=== PATIENT | male | born 1945 | race Caucasian/White ===

== ENCOUNTER 2020-02-20 14:22 | Outpatient (REF) | payer MEDICARE, SELFPAY | END 2020-02-20 14:23 | disposition home or self-care (01) | LOC: HO.LNP 14:22 | PROVIDERS: Visit Provider Internal Medicine | DX: Z20.828 Contact with and (suspected) exposure to other viral communicable diseases (principal); R05 Cough; R68.89 Other general symptoms and signs | CPT/HCPCS: U0003 ==

== ENCOUNTER 2020-07-17 16:06 | Outpatient (REF) | payer MEDICARE, SELFPAY ==
[2020-07-17 18:17] LABS: MANUAL DIFF FLAG NO
[2020-07-17 18:22] LABS: Basophils Percent Auto 0.6 % (0-2); Eosinophils Absolute Auto 0.1 X10*3/uL (0.0-0.4); Eosinophils Percent Auto 1.5 % (0-4); Hemoglobin 10.4 g/dl (14.0-18.0); Imm Gran Abs Auto 0.02 X10*3/uL (0.00-0.03); Imm Gran Pct Auto 0.4 % (0.0-0.4); Lymphocytes Absolute Auto 1.6 X10*3/uL (1.2-4.9); Lymphocytes Percent Auto 29.2 % (20-40); Mean Corpuscular HGB Conc 32.5 g/dl (31.0-36.0); Mean Corpuscular Volume 98.5 fL (80-98); Mean Platelet Volume 11.2 fL (9.4-12.4); Monocytes Absolute Auto 0.5 X10*3/uL (0.1-1.2); Monocytes Percent Auto 8.7 % (2-11); Neutrophils Absolute Auto 3.2 X10*3/uL (2.0-8.3); Neutrophils Percent Auto 59.6 % (45-73); Platelet Count 217 X10*3/uL (160-400); Red Blood Count 3.25 X10*6/uL (4.60-5.80); Red Cell Distribution Width 13.6 % (11.0-16.0); White Blood Count 5.4 X10*3/uL (4.8-10.8)
[2020-07-17 18:44] LABS: Alanine Aminotransferase 31 U/L (0-40); Albumin Level 3.9 g/dL (3.5-5.0); Alkaline Phosphatase 136 U/L (39-117); Anion Gap 12 (12-20); Aspartate Amino Transferase 31 U/L (5-37); Bilirubin Total 0.3 mg/dL (0.0-1.0); Blood Urea Nitrogen 24 mg/dL (9-16); Carbon Dioxide 22 mmol/L (22-29); Chloride 108 mmol/L (96-108); Estimated Glomerular Filt Rate 52; Glucose Random 88 mg/dL (60-115); Potassium 4.1 mmol/L (3.3-5.1); Sodium 138 mmol/L (135-145); Total Protein 8.1 g/dL (6.5-8.0)
== END 2020-07-17 16:07 | disposition home or self-care (01) ==
LOC: HO.LAB 16:06
PROVIDERS: PCP Internal Medicine; Visit Provider Internal Medicine
DX: I25.10 Atherosclerotic heart disease of native coronary artery without angina pectoris (principal); K44.9 Diaphragmatic hernia without obstruction or gangrene; I12.9 Hypertensive chronic kidney disease with stage 1 through stage 4 chronic kidney disease, or unspecified chronic kidney disease; N18.9 Chronic kidney disease, unspecified
CPT/HCPCS: 36415; 80053; 85025

== ENCOUNTER 2020-08-11 20:30 | Emergency (ER) | payer OTHER, MEDICARE, SELFPAY ==
--- NOTE | ~2020-08-11 | CT_ITS ---
EXAMINATION: CT ABDOMEN AND PELVIS WITHOUT CONTRAST CLINICAL INFORMATION: Left flank pain with history of stone COMPARISON: 11/25/2019 TECHNIQUE: Multidetector volumetric imaging was performed from the superior aspect of the liver through the pubic symphysis. Sagittal and coronal reformatted images were obtained on the technologist's workstation. This CT examination was performed using dose optimization techniques as appropriate, variously including the following: *Automated exposure control *Adjustment of mA and/or kV according to patient size (this includes techniques or standardized protocols for targeted exams where dose is matched to indication/reason for exam; i.e. extremities or head) *Use of iterative reconstruction technique DLP: 433 mGy-cm FINDINGS: LUNG BASES: Prominent cystic changes are seen at the lung bases. This is suggestive of emphysema. Comment coronary artery calcifications. Small hiatal hernia. LIVER, GALLBLADDER, AND BILIARY TREE: The liver is normal in size, shape, and attenuation. No focal hepatic lesion or biliary ductal dilatation is present. Small stones layering the gallbladder lumen. No gallbladder wall thickening or pericholecystic fluid. PANCREAS: Unremarkable. SPLEEN: Unremarkable. ADRENAL GLANDS: The left adrenal gland is unremarkable. There is a 2 cm right adrenal gland nodule. This measures 7 Hounsfield units, consistent with a lipid rich adenoma. No follow-up imaging recommended. KIDNEYS AND URETERS: The kidneys are normal in size, shape, and attenuation. Mild left hydroureteronephrosis. There is a 0.2 cm calculus in the distal ureter approximately 1.5 cm proximal to the ureterovesicular junction. There are multiple nonobstructing bilateral renal calculi. On the left there are 2 calculi present. 0.5 cm upper pole calculus is 8 cm from the posterior axillary line. This measures 285 Hounsfield units. There is also a left lower pole 0.4 cm calculus. On the right at least 6 calculi are seen. The largest is seen at the mid to lower pole measuring 0.7 x 0.4 cm, 7 cm from the posterior axillary line. There is bilateral perinephric stranding, though somewhat greater on the left than the right. BLADDER: Unremarkable. GASTROINTESTINAL TRACT: Small hiatal hernia. The stomach is otherwise unremarkable. Normal caliber small bowel. No obstruction. Normal appendix. There is diffuse diverticulosis of the colon, greatest at the sigmoid. No colonic wall thickening or acute inflammation. No free air. No free fluid. ABDOMINAL WALL: No significant hernia is appreciated. LYMPH NODES: Normal. VASCULAR: Normal caliber aorta with extensive atherosclerotic calcifications. There is an intraluminal calcification of the infrarenal abdominal aorta resulting in luminal narrowing as seen on series 3 image 41. PELVIC VISCERA: The uterus and adnexa are unremarkable. OSSEOUS STRUCTURES: No acute or suspicious osseous abnormality. CT/CT abdomen pelvis wo con IMPRESSION: Mild left hydroureteronephrosis with a 0.2 cm distal ureteral obstructing calculus. Multiple additional nonobstructing bilateral renal calculi. Cholelithiasis. Colonic diverticulosis without diverticulitis.
[2020-08-11 21:32] VITALS: BP 160/67; PULSE 80; RESP 16; TEMP 36.5; O2SAT 98; BMI 22.7
--- NOTE | 2020-08-11 21:51 | ED_ITS ---
HPI - Male Genitourinary General Chief complaint: Urogenital-Male Stated complaint: abd pain Time Seen by Provider: 08/11/20 21:01 Source: patient Mode of arrival: ambulatory Limitations: no limitations History of Present Illness HPI Narrative: Patient's history of kidney stone complaining of pain left flank area for last 3 hours Related Data Previous Rx's Medication Instructions Recorded atorvastatin 80 mg tablet 80 mg PO BEDTIME 90 Days #90 tab 05/04/20 metoprolol succinate 100 mg 100 mg PO DAILY #90 tab 07/15/20 tablet,extended release 24 hr hydralazine 50 mg tablet 50 mg PO BID 90 Days #180 tab 07/20/20 amlodipine 10 mg tablet 10 mg PO DAILY #90 tab 07/30/20 Allergies Allergy/AdvReac Type Severity Reaction Status Date / Time No Known Allergies Allergy Verified 08/11/20 21:31 [No Known Allergies*] [facility] Past Medical History Medical History (Updated 08/11/20 @ 21:34 by Nicky Puga) High cholesterol HTN (hypertension) Kidney stone Surgical History (Updated 08/11/20 @ 21:34 by Nicky Puga) Hx of CABG Physical Exam Vital Signs: Vital Signs: Last Vital Signs Temp 97.7 F 08/11/20 21:32 Pulse 80 08/11/20 21:32 Resp 16 08/11/20 21:32 BP 160/67 H 08/11/20 21:32 Pulse Ox 98 08/11/20 21:32 Body Mass Index 22.7 MDM - Male Genitourinary Lab Data Result diagrams: 08/11/20 21:44 08/11/20 21:44 Labs: Lab Results 08/11/20 Range/Units 21:45 Hold Blue Top SEE NOTE Discharge Plan Discharge Prescriptions: No Action atorvastatin 80 mg tablet 80 mg PO BEDTIME 90 Days Qty: 90 RF: 1 metoprolol succinate 100 mg tablet extended release 24 hr 100 mg PO DAILY Qty: 90 RF: 3 hydralazine 50 mg tablet 50 mg PO BID 90 Days Qty: 180 RF: 1 amlodipine 10 mg tablet 10 mg PO DAILY Qty: 90 RF: 3
[2020-08-11 21:54] LABS: Basophils Percent Auto 0.2 % (0-2); Eosinophils Percent Auto 0.4 % (0-4); Hematocrit 30.6 % (42-52); Hemoglobin 10.3 g/dl (14.0-18.0); Imm Gran Abs Auto 0.03 X10*3/uL (0.00-0.03); Imm Gran Pct Auto 0.3 % (0.0-0.4); Lymphocytes Absolute Auto 0.9 X10*3/uL (1.2-4.9); Lymphocytes Percent Auto 10.5 % (20-40); MANUAL DIFF FLAG SCAN; Mean Corpuscular HGB Conc 33.7 g/dl (31.0-36.0); Mean Corpuscular Hemoglobin 32.4 pg (27.0-33.0); Mean Corpuscular Volume 96.2 fL (80-98); Mean Platelet Volume 10.5 fL (9.4-12.4); Monocytes Absolute Auto 0.4 X10*3/uL (0.1-1.2); Monocytes Percent Auto 3.9 % (2-11); Neutrophils Absolute Auto 7.5 X10*3/uL (2.0-8.3); Neutrophils Percent Auto 84.7 % (45-73); PLT CLUMP 1; Red Blood Count 3.18 X10*6/uL (4.60-5.80); Red Cell Distribution Width 13.1 % (11.0-16.0); SCAN SMEAR FLAG 1
[2020-08-11 21:55] LABS: Platelet Count 186 X10*3/uL (160-400); White Blood Count 8.9 X10*3/uL (4.8-10.8)
[2020-08-11 21:56] LABS: SLIDE REVIEW VERIFIED
[2020-08-11 22:13] LABS: Alanine Aminotransferase 25 U/L (0-40); Alkaline Phosphatase 126 U/L (39-117); Anion Gap 13 (12-20); Aspartate Amino Transferase 29 U/L (5-37); Bilirubin Total 0.4 mg/dL (0.0-1.0); Blood Urea Nitrogen 21 mg/dL (9-16); Carbon Dioxide 18 mmol/L (22-29); Chloride 109 mmol/L (96-108); Estimated Glomerular Filt Rate 49; Glucose Random 150 mg/dL (60-115); Potassium 3.9 mmol/L (3.3-5.1); Sodium 136 mmol/L (135-145); Total Protein 8.1 g/dL (6.5-8.0)
[2020-08-11 22:25] LABS: Glucose Urine UA NEG (NEG); Leukocyte Esterase Urine NEG (NEG); Nitrite Urine NEG (NEG); Specific Gravity - Urine 1.025 (1.005-1.025); Urine Blood NEG (NEG); Urine Ketones NEG (NEG); Urine Protein 1+ MG/DL (NEG-TRACE)
[2020-08-11 22:28] LABS: Appearance Urine CLEAR; Color Urine YELLOW
[2020-08-11 22:39] LABS: Bacteria Urine TRACE /LPF; RBC Urine 0-2 /HPF (0); Squamous Epithelial Cell Urine TRACE /LPF; WBC Urine 0-2 /HPF (0-4)
--- NOTE | 2020-08-11 23:24 | ED_ITS ---
HPI - Male Genitourinary General Chief complaint: Urogenital-Male Stated complaint: abd pain Time Seen by Provider: 08/11/20 21:01 Source: patient Mode of arrival: ambulatory Limitations: no limitations History of Present Illness HPI Narrative: Patient history of kidney stone status post lithotripsy in the past comes here for acute onset of left flank radiating to left lower quadrant and testicle sharp pain for last 4 hours. Feel nauseated vomited 1 time at home. No fever no chills no gross hematuria no dysuria or frequency Related Data Previous Rx's Medication Instructions Recorded atorvastatin 80 mg tablet 80 mg PO BEDTIME 90 Days #90 tab 05/04/20 metoprolol succinate 100 mg 100 mg PO DAILY #90 tab 07/15/20 tablet,extended release 24 hr hydralazine 50 mg tablet 50 mg PO BID 90 Days #180 tab 07/20/20 amlodipine 10 mg tablet 10 mg PO DAILY #90 tab 07/30/20 oxycodone 5 mg PO Q6H PRN #20 tab 08/12/20 tamsulosin [Flomax] 0.4 mg PO BEDTIME #10 cap 08/12/20 Allergies Allergy/AdvReac Type Severity Reaction Status Date / Time No Known Allergies Allergy Verified 08/11/20 21:31 [No Known Allergies*] Review of Systems Review of Systems: Constitutional : No Weight loss, No Fever, No Chills ENT/Mouth : No sore throat, No Rhinorrhea Eyes: No Eye Pain, No Swelling Cardiovascular : No Chest Pain, no palpitations Respiratory : No Cough, No Sputum, no shortness of breath Gastrointestinal : +Nausea, + Vomiting, No Diarrhea, + abdominal Pain, no black stools Genitourinary : No Dysuria, No Urinary Frequency Musculoskeletal : No joint pain, No Myalgias, No Joint Swelling Skin : No Skin Lesions, No rash Neuro : No Weakness, No Numbness, No Dizziness, No Headache Psych : No Anxiety/Panic, No Depression Heme/Lymph: No Bruising, No Lymphadenopathy Endocrine : No Polyuria, No Polydipsia All other systems reviewed and are negative PMFSH Past Medical History Medical History High cholesterol HTN (hypertension) Kidney stone Surgical History Hx of CABG Social History Social History Advance Directives: No Advance Directives Information Provided: Yes Physical Exam Vital Signs: Vital Signs: Last Vital Signs Temp 97.7 F 08/11/20 21:32 Pulse 80 08/11/20 21:32 Resp 16 08/11/20 21:32 BP 160/67 H 08/11/20 21:32 Pulse Ox 98 08/11/20 21:32 Body Mass Index 22.7 Appearance: Alert. Oriented X3. In moderate distress. Eyes: PERRLA, No Nystagmus ENT: Pharynx normal. Oral Mucosa moist Neck: Normal inspection. Neck supple. CVS: Normal heart rate and rhythm. Pulses normal. Respiratory: No respiratory distress. Equal air entry bilateral, no wheezing/rales/rhonchi Abdomen: Soft and nontender. Bowel sounds are present, no mass palpable, left CVA tenderness Skin: Skin warm and dry. Normal skin color. Normal skin turgor. Extremities: No lower extremity edema. No calf tenderness Neuro: Oriented X 3. No motor deficit. No sensory deficit.No cerebellar signs , cranial nerves II-XII intact MDM - Male Genitourinary MDM Narrative Medical decision making narrative: Patient with small 2 mm left distal ureteral stone feeling much better after pain medication will discharge patient home on pain medication and Flomax advised to follow with urologist Lab Data Attestation: I reviewed the patient's lab results. Result diagrams: 08/11/20 21:44 08/11/20 21:44 Labs: Lab Results 08/11/20 08/11/20 08/11/20 Range/Units 21:44 21:44 21:45 WBC 8.9 (4.8-10.8) X10*3/uL RBC 3.18 L (4.60-5.80) X10*6/uL Hgb 10.3 L (14.0-18.0) g/dl Hct 30.6 L (42-52) % MCV 96.2 (80-98) fL MCH 32.4 (27.0-33.0) pg MCHC 33.7 (31.0-36.0) g/dl RDW 13.1 (11.0-16.0) % Plt Count 186 (160-400) X10*3/uL MPV 10.5 (9.4-12.4) fL Immature Gran % (Auto) 0.3 (0.0-0.4) % Neut % (Auto) 84.7 H (45-73) % Lymph % (Auto) 10.5 L (20-40) % [place] % (Auto) 3.9 (2-11) % Eos % (Auto) 0.4 (0-4) % Baso % (Auto) 0.2 (0-2) % Lymph # (Auto) 0.9 L (1.2-4.9) X10*3/uL [place] # (Auto) 0.4 (0.1-1.2) X10*3/uL Eos # (Auto) 0.0 (0.0-0.4) X10*3/uL Baso # (Auto) 0.0 (0.0-0.2) X10*3/uL Abs Immat Gran (auto) 0.03 (0.00-0.03) X10*3/uL Absolute Neuts (auto) 7.5 (2.0-8.3) X10*3/uL Absolute Nucleated RBC 0.000 (0.0-0.012) X10*3/uL Nucleated RBC % (auto) 0.0 (0.0-0.2) /100WBC Smear Tech's Comments VERIFIED Hold Blue Top SEE NOTE Sodium 136 (135-145) mmol/L Potassium 3.9 (3.3-5.1) mmol/L Chloride 109 H (96-108) mmol/L Carbon Dioxide 18 L (22-29) mmol/L Anion Gap 13 (12-20) BUN 21 H (9-16) mg/dL Creatinine 1.40 (0.5-1.4) mg/dL Estim Creat Clear Calc 45.0 Estimated GFR 49 Random Glucose 150 H D (60-115) mg/dL Calcium 9.0 (8.4-10.2) mg/dL Total Bilirubin 0.4 (0.0-1.0) mg/dL AST 29 (5-37) U/L ALT 25 (0-40) U/L Alkaline Phosphatase 126 H (39-117) U/L Total Protein 8.1 H (6.5-8.0) g/dL Albumin 4.0 (3.5-5.0) g/dL Urine Color Urine Appearance Urine pH (5.0-8.0) Ur Specific [place] (1.005-1.025) Urine Protein (NEG-TRACE) MG/DL Urine Glucose (UA) (NEG) MG/DL Urine Ketones (NEG) MG/DL Urine Blood (NEG) Urine Nitrite (NEG) Ur Leukocyte Esterase (NEG) Urine RBC (0) /HPF Urine WBC (0-4) /HPF Ur Squamous Epith Cells /LPF Urine Bacteria /LPF 08/11/20 Range/Units 22:05 WBC (4.8-10.8) X10*3/uL RBC (4.60-5.80) X10*6/uL Hgb (14.0-18.0) g/dl Hct (42-52) % MCV (80-98) fL MCH (27.0-33.0) pg MCHC (31.0-36.0) g/dl RDW (11.0-16.0) % Plt Count (160-400) X10*3/uL MPV (9.4-12.4) fL Immature Gran % (Auto) (0.0-0.4) % Neut % (Auto) (45-73) % Lymph % (Auto) (20-40) % [place] % (Auto) (2-11) % Eos % (Auto) (0-4) % Baso % (Auto) (0-2) % Lymph # (Auto) (1.2-4.9) X10*3/uL [place] # (Auto) (0.1-1.2) X10*3/uL Eos # (Auto) (0.0-0.4) X10*3/uL Baso # (Auto) (0.0-0.2) X10*3/uL Abs Immat Gran (auto) (0.00-0.03) X10*3/uL Absolute Neuts (auto) (2.0-8.3) X10*3/uL Absolute Nucleated RBC (0.0-0.012) X10*3/uL Nucleated RBC % (auto) (0.0-0.2) /100WBC Smear Tech's Comments Hold Blue Top Sodium (135-145) mmol/L Potassium (3.3-5.1) mmol/L Chloride (96-108) mmol/L Carbon Dioxide (22-29) mmol/L Anion Gap (12-20) BUN (9-16) mg/dL Creatinine (0.5-1.4) mg/dL Estim Creat Clear Calc Estimated GFR Random Glucose (60-115) mg/dL Calcium (8.4-10.2) mg/dL Total Bilirubin (0.0-1.0) mg/dL AST (5-37) U/L ALT (0-40) U/L Alkaline Phosphatase (39-117) U/L Total Protein (6.5-8.0) g/dL Albumin (3.5-5.0) g/dL Urine Color YELLOW Urine Appearance CLEAR Urine pH 6.0 (5.0-8.0) Ur Specific [place] 1.025 (1.005-1.025) Urine Protein 1+ H (NEG-TRACE) MG/DL Urine Glucose (UA) NEG (NEG) MG/DL Urine Ketones NEG (NEG) MG/DL Urine Blood NEG (NEG) Urine Nitrite NEG (NEG) Ur Leukocyte Esterase NEG (NEG) Urine RBC 0-2 (0) /HPF Urine WBC 0-2 (0-4) /HPF Ur Squamous Epith Cells TRACE /LPF Urine Bacteria TRACE /LPF Discharge Plan Discharge Clinical Impression: Kidney stone on left side Patient Disposition: Home, Self-Care Instructions: Kidney Stones (ED) Additional Instructions: Drink plenty of fluid take pain medication as advised follow-up with urologist Prescriptions: New oxycodone 5 mg tablet 5 mg PO Q6H PRN (Reason: pain) Qty: 20 RF: 0 tamsulosin [Flomax] 0.4 mg capsule 0.4 mg PO BEDTIME Qty: 10 RF: 0 No Action atorvastatin 80 mg tablet 80 mg PO BEDTIME 90 Days Qty: 90 RF: 1 metoprolol succinate 100 mg tablet extended release 24 hr 100 mg PO DAILY Qty: 90 RF: 3 hydralazine 50 mg tablet 50 mg PO BID 90 Days Qty: 180 RF: 1 amlodipine 10 mg tablet 10 mg PO DAILY Qty: 90 RF: 3
[2020-08-11] MEDS: Morphine Sulfate 4 MG/ML CARTRIDGE IVPUSH (23:45)
[2020-08-11] MEDS: ondansetron HCL 4 MG/2 ML VIAL IVPUSH (23:45)
[2020-08-11] MEDS: 0.9 % Sodium Chloride 1,000 ML 999 ML IVCONT (23:46)
[2020-08-11] MEDS: Ketorolac Tromethamine 30 MG/ML VIAL IVPUSH (23:46)
--- NOTE | 2020-08-11 23:53 | PC.NURSE ---
iv placed to LAC, NS UP AND RUNNING W/O SITE INTACT. PT RATING PAIN 8/10. PT MEDICATED FOR PAIN PER EMAR.
[2020-08-12] MEDS: Morphine Sulfate 4 MG/ML CARTRIDGE IVPUSH (00:45)
[2020-08-12] MEDS: Tamsulosin HCL 0.4 MG CAPSULE PO (00:45)
== END 2020-08-12 01:29 | disposition home or self-care (01) ==
PROVIDERS: Emergency Provider Internal Medicine; PCP Internal Medicine
DX: N13.2 Hydronephrosis with renal and ureteral calculous obstruction (principal); Z87.442 Personal history of urinary calculi; R93.5 Abnormal findings on diagnostic imaging of other abdominal regions, including retroperitoneum; K80.20 Calculus of gallbladder without cholecystitis without obstruction; K57.30 Diverticulosis of large intestine without perforation or abscess without bleeding; I10 Essential (primary) hypertension; E78.5 Hyperlipidemia, unspecified
CPT/HCPCS: 36415; 74176; 80053; 81001; 85025; 96361; 96374; 96375; 96376; 99284; J1885; J2270; J2405

== ENCOUNTER 2020-08-31 08:02 | Outpatient (REF) | payer MEDICARE, SELFPAY ==
--- NOTE | ~2020-08-31 | US_ITS ---
EXAMINATION: US EXTRACRANIAL CAROTID DUPLEX, BILATERAL CLINICAL INFORMATION: History of carotid artery stenosis and right carotid endarterectomy in December 2018. COMPARISON: March 05, 2019, April 18, 2018 TECHNIQUE: Real-time ultrasound and Doppler techniques (integrating B-mode 2-D vascular images, Doppler spectral analysis and color-flow Doppler imaging) were utilized to interrogate the extracranial carotid arteries, the vertebral arteries and proximal subclavian arteries bilaterally. The degree of stenosis is determined by criteria similar to NASCET. FINDINGS: Right Side: 1. There is mild atherosclerotic plaque seen in the bifurcation/proximal ICA region. 2. The common carotid artery PSV proximally is 55 cm/s and distally 89 cm/s. 3. The proximal internal carotid artery velocities are 94 cm/s systolic and 16 cm/s diastolic. 4. The proximal external carotid artery PSV is 90 cm/s. 5. The vertebral artery shows antegrade flow. 6. The subclavian artery waveforms are normal. Left Side: 1. There is moderate atherosclerotic plaque seen in the bifurcation/proximal ICA region. 2. The common carotid artery PSV proximally is 66 cm/s and distally 92 cm/s. 3. The proximal internal carotid artery velocities are 149 cm/s systolic and 26 cm/s diastolic. 4. The proximal external carotid artery PSV is 206 cm/s. 5. The vertebral artery shows antegrade flow. 6. The subclavian artery waveforms are normal. US/US carotid duplex BI IMPRESSION: 1. RIGHT: Minimal, non-hemodynamically significant stenosis of the proximal right internal carotid artery corresponding to a 0-49% stenosis by velocity criteria. 2. LEFT: Moderate, hemodynamically significant stenosis of the proximal left internal carotid artery corresponding to a 50-79% stenosis by velocity criteria. 3. There is no change in the category severity of disease when compared to the previous study dated March 05, 2019. 4. Elevated velocity within the left external carotid artery consistent with moderate, hemodynamically significant stenosis. This is new from the 2019 comparison.
== END 2020-08-31 08:03 | disposition home or self-care (01) ==
LOC: HO.HMGCX 08:02
PROVIDERS: Visit Provider Surgery Vascular Surgery
DX: I65.23 Occlusion and stenosis of bilateral carotid arteries (principal)
CPT/HCPCS: 93880

== ENCOUNTER 2020-09-17 08:50 | Outpatient (REF) | payer MEDICARE, SELFPAY ==
[2020-09-17 13:00] LABS: MANUAL DIFF FLAG NO
[2020-09-17 13:07] LABS: Basophils Percent Auto 0.4 % (0-2); Eosinophils Absolute Auto 0.1 X10*3/uL (0.0-0.4); Eosinophils Percent Auto 1.8 % (0-4); Hematocrit 32.6 % (42-52); Hemoglobin 10.5 g/dl (14.0-18.0); Imm Gran Abs Auto 0.01 X10*3/uL (0.00-0.03); Imm Gran Pct Auto 0.2 % (0.0-0.4); Lymphocytes Absolute Auto 1.3 X10*3/uL (1.2-4.9); Lymphocytes Percent Auto 29.1 % (20-40); Mean Corpuscular HGB Conc 32.2 g/dl (31.0-36.0); Mean Corpuscular Hemoglobin 31.8 pg (27.0-33.0); Mean Corpuscular Volume 98.8 fL (80-98); Mean Platelet Volume 10.4 fL (9.4-12.4); Monocytes Absolute Auto 0.3 X10*3/uL (0.1-1.2); Monocytes Percent Auto 7.5 % (2-11); Neutrophils Absolute Auto 2.8 X10*3/uL (2.0-8.3); Platelet Count 175 X10*3/uL (160-400); Red Cell Distribution Width 13.2 % (11.0-16.0); White Blood Count 4.5 X10*3/uL (4.8-10.8)
[2020-09-17 13:47] LABS: Alanine Aminotransferase 20 U/L (0-40); Albumin Level 4.1 g/dL (3.5-5.0); Alkaline Phosphatase 127 U/L (39-117); Anion Gap 15 (12-20); Aspartate Amino Transferase 27 U/L (5-37); Bilirubin Total 0.4 mg/dL (0.0-1.0); Blood Urea Nitrogen 30 mg/dL (9-16); C Reactive Protein 0.87 mg/dL (< or = 0.50); Calcium 9.4 mg/dL (8.4-10.2); Carbon Dioxide 19 mmol/L (22-29); Chloride 110 mmol/L (96-108); Estimated Glomerular Filt Rate 42; Glucose Random 93 mg/dL (60-115); Lactate Dehydrogenase 172 U/L (118-273); Potassium 4.6 mmol/L (3.3-5.1); Sodium 139 mmol/L (135-145); Total Protein 8.2 g/dL (6.5-8.0)
== END 2020-09-17 08:51 | disposition home or self-care (01) ==
LOC: HO.LAB 08:50
PROVIDERS: PCP Internal Medicine; Visit Provider Surgery Vascular Surgery
DX: R21 Rash and other nonspecific skin eruption (principal); I10 Essential (primary) hypertension; I25.10 Atherosclerotic heart disease of native coronary artery without angina pectoris; I65.23 Occlusion and stenosis of bilateral carotid arteries
CPT/HCPCS: 36415; 80053; 83615; 85025; 86140; 99212

== ENCOUNTER 2020-09-27 02:58 | Inpatient (IN) | payer OTHER, MEDICARE, SELFPAY ==
[2020-09-27] VITALS (11 sets, daily range): BP systolic 103–164; BP diastolic 53–72; PULSE 54–83; RESP 14–20; TEMP 36.4–37.1; O2SAT 88–99; BMI 22.4; BMI 22.9
--- NOTE | ~2020-09-27 | FL_ITS ---
EXAMINATION: XR FLUOROSCOPY WITH IMAGES CLINICAL INFORMATION: Left retrograde COMPARISON: Previous CT of the abdomen and pelvis from yesterday TECHNIQUE: Fluoroscopy performed by Dr. Alan Mcintosh. Fluoroscopy time: 42 seconds Dose: 8 mgy Images: 2 FINDINGS: Fluoroscopy guidance was provided for left retrograde exam and stent placement. Initial image demonstrates a catheter and wire in the bladder and left distal ureter. Final image demonstrates proximal and internal ureteral stent projecting over the left kidney. FL/FL guidance in OR IMPRESSION: Fluoroscopy guidance for left internal ureteral stent placement.
--- NOTE | ~2020-09-27 | CT_ITS ---
EXAMINATION: CT ABDOMEN AND PELVIS WITHOUT CONTRAST CLINICAL INFORMATION: Flank pain COMPARISON: 08/11/2020 TECHNIQUE: Multidetector volumetric imaging was performed from the superior aspect of the liver through the pubic symphysis. Sagittal and coronal reformatted images were obtained on the technologist's workstation. This CT examination was performed using dose optimization techniques as appropriate, variously including the following: *Automated exposure control *Adjustment of mA and/or kV according to patient size (this includes techniques or standardized protocols for targeted exams where dose is matched to indication/reason for exam; i.e. extremities or head) *Use of iterative reconstruction technique DLP: 409 mGy-cm FINDINGS: LUNG BASES: Moderate centrilobular and paraseptal emphysema. Triple vessel coronary calcifications. LIVER, GALLBLADDER, AND BILIARY TREE: The liver is normal in size, shape, and attenuation. No focal hepatic lesion or biliary ductal dilatation is present. Gallbladder unremarkable. PANCREAS: Unremarkable. SPLEEN: Unremarkable. ADRENAL GLANDS: Unremarkable. KIDNEYS AND URETERS: There is a 4 mm stone within the distal LEFT ureter, 1 cm proximal to the ureterovesical junction associated mild upstream hydroureteronephrosis and perinephric stranding. This stone previously resided in the upper pole of the left kidney (coronal image 51 from the previous study). The previously seen 2 mm stone within the distal left ureter has passed the interim. c multiple bilateral nonobstructive intrarenal calculi redemonstrated. BLADDER: Unremarkable. GASTROINTESTINAL TRACT: Scattered colonic diverticula, most extensively involving the sigmoid colon. No evidence of diverticulitis. Normal appendix. Small hiatal hernia. Small bowel unremarkable. ABDOMINAL WALL: Small bilateral inguinal hernias containing nonobstructed loops of small bowel. Appearance similar to prior. LYMPH NODES: Normal. VASCULAR: Extensive calcific atherosclerotic vascular disease present with bulky calcific atheroma formation within the mid abdominal aorta PELVIC VISCERA: Mild prostatomegaly. TURP defect suspected. OSSEOUS STRUCTURES: No acute or suspicious osseous abnormalities. CT/CT abdomen pelvis wo con IMPRESSION: * There is a 4 mm stone within the distal LEFT ureter, 1 cm proximal to the ureterovesical junction associated mild upstream hydroureteronephrosis and perinephric stranding. This stone previously resided within the upper pole of left kidney. * Previously seen 2 mm distal LEFT ureteral stent has passed in the room. * Bilateral nonobstructive intrarenal calculi. * Additional chronic findings as described.
[2020-09-27] MEDS: ondansetron HCL 4 MG/2 ML VIAL IVPUSH (03:38)
[2020-09-27 03:39] LABS: MANUAL DIFF FLAG NO
[2020-09-27] MEDS: 0.9 % Sodium Chloride 1,000 ML 999 ML IV (03:39)
[2020-09-27 03:40] LABS: Basophils Percent Auto 0.1 % (0-2); Eosinophils Absolute Auto 0.3 X10*3/uL (0.0-0.4); Eosinophils Percent Auto 2.3 % (0-4); Hematocrit 32.2 % (42-52); Imm Gran Abs Auto 0.05 X10*3/uL (0.00-0.03); Imm Gran Pct Auto 0.4 % (0.0-0.4); Lymphocytes Absolute Auto 1.5 X10*3/uL (1.2-4.9); Lymphocytes Percent Auto 13.4 % (20-40); Mean Corpuscular HGB Conc 34.2 g/dl (31.0-36.0); Mean Corpuscular Hemoglobin 33.3 pg (27.0-33.0); Mean Corpuscular Volume 97.6 fL (80-98); Mean Platelet Volume 9.8 fL (9.4-12.4); Monocytes Percent Auto 9.3 % (2-11); Neutrophils Absolute Auto 8.3 X10*3/uL (2.0-8.3); Neutrophils Percent Auto 74.5 % (45-73); Platelet Count 243 X10*3/uL (160-400); Red Cell Distribution Width 13.5 % (11.0-16.0); White Blood Count 11.1 X10*3/uL (4.8-10.8)
--- NOTE | 2020-09-27 03:41 | PC.NURSE ---
Pt found ambulating from the waiting room into room 17. Pt is CAOx4, speaking full sentences, reports a history of kidney stones. Pt explains that he woke up @ 2300 with severe left flank pain, nausea and dysuria. Pt states the pain feels the exact same as his prior kidney stones. IV established, labs and UA obtained. Pt medicated for nausea, IVF infusing. Awaiting primary MD kerns.
[2020-09-27 03:42] LABS: Glucose Urine UA NEG (NEG); Leukocyte Esterase Urine NEG (NEG); Nitrite Urine NEG (NEG); PH 5.5 (5.0-8.0); Urine Blood NEG (NEG); Urine Ketones NEG (NEG); Urine Protein NEG (NEG-TRACE)
[2020-09-27 03:51] LABS: Appearance Urine CLEAR; Color Urine YELLOW
[2020-09-27 04:08] LABS: Alanine Aminotransferase 40 U/L (0-40); Albumin Level 3.7 g/dL (3.5-5.0); Alkaline Phosphatase 104 U/L (39-117); Anion Gap 15 (12-20); Aspartate Amino Transferase 30 U/L (5-37); Bilirubin Total 0.3 mg/dL (0.0-1.0); Blood Urea Nitrogen 44 mg/dL (9-16); Calcium 8.9 mg/dL (8.4-10.2); Carbon Dioxide 16 mmol/L (22-29); Chloride 112 mmol/L (96-108); Creatinine Clr Calc Pharmacy 29.7; Estimated Glomerular Filt Rate 31; Glucose Random 155 mg/dL (60-115); Potassium 4.3 mmol/L (3.3-5.1); Sodium 139 mmol/L (135-145); Total Protein 7.3 g/dL (6.5-8.0)
[2020-09-27] MEDS: Ketorolac Tromethamine 15 MG/ML VIAL IVPUSH (04:08)
[2020-09-27] MEDS: Acetaminophen 325 MG TABLET 650 MG PO (04:08)
[2020-09-27] MEDS: Acetaminophen 325 MG TABLET PO (04:08)
--- NOTE | 2020-09-27 04:10 | PC.NURSE ---
MD at bedside for primary eval. Pt medicated per JUN. Pt aware of plan for CT. Call hector within reach, continue to monitor.
--- NOTE | 2020-09-27 04:14 | ED.GENADULT ---
HPI - General Adult General Chief complaint: Abdominal Pain Stated complaint: kidney stone Time Seen by Provider: 09/27/20 04:05 Source: patient Mode of arrival: ambulatory History of Present Illness HPI narrative: 75-year-old male with history of kidney stones to include lithotripsy presents with acute onset of left flank pain radiating into the anterior abdomen that started about 2300 associated with nausea but denies any fever and states he is having chills now. Otherwise, he denies any shortness of breath, chest pain/palpitations, diarrhea, urinary pain/burning/frequency. Related Data Home Medications Medication Instructions Recorded Confirmed aspirin 81 mg PO DAILY 09/27/20 09/27/20 Previous Rx's Medication Instructions Recorded atorvastatin 80 mg tablet 80 mg PO BEDTIME 90 Days #90 tab 05/04/20 metoprolol succinate 100 mg 100 mg PO DAILY #90 tab 07/15/20 tablet,extended release 24 hr hydralazine 50 mg tablet 50 mg PO BID 90 Days #180 tab 07/20/20 amlodipine 10 mg tablet 10 mg PO DAILY #90 tab 07/30/20 Allergies Allergy/AdvReac Type Severity Reaction Status Date / Time No Known Allergies Allergy Verified 09/27/20 03:38 [No Known Allergies*] Review of Systems Review of Systems: Pertinent positives and negatives as stated in HPI 10 point review of system is otherwise negative. PMFSH Past Medical History Source: nursing notes reviewed Medical History High cholesterol HTN (hypertension) Kidney stone Surgical History Hx of CABG Social History Social History Advance Directives: No Advance Directives Information Provided: No Physical Exam Vital Signs: Vital Signs: Last Vital Signs Temp 97.9 F 09/27/20 05:07 Pulse 74 09/27/20 06:02 Resp 16 09/27/20 06:02 BP 121/60 09/27/20 06:02 Pulse Ox 99 09/27/20 03:09 Body Mass Index 22.4 VITAL SIGNS: Reviewed. GENERAL: Well developed, well nourished, in no acute distress. HEAD: Normocephalic/atraumatic EYES: PERRLA, EOMI OROPHARYNX: no oral lesions noted, posterior pharynx clear NECK: Supple, no adenopathy LUNGS: Normal breath sounds. No adventitious sounds or accessory muscle use. SpO2<99> CARDIOVASCULAR: Regular rate and rhythm without noted murmurs ABDOMEN: Soft, mild pain on deep palpation at the left abdomen, non-distended with bowel sounds. SKIN: Inspection of the skin reveals no rashes NEUROLOGIC: Alert and oriented x 4. Course Course Course Narrative: 75-year-old male with history and clinical presentation consistent with renal colic and doubt pyelonephritis or diverticulitis. On review of all investigations there is a mild leukocytosis combine with worsening creatinine level in combination with findings of a 4 mm stone within the distal left ureter and associated hydroureteronephrosis with perinephric stranding. The case was discussed with Dr. Mcintohs, who will be in to evaluate the patient in the morning for possible intervention. Signed out to Dr Juárez @ 0699 Reevaluation(s) Reevaluation #1: Patient placed in physician observation because the patient needed to be seen by Urology. At the time observation was started the patient's vital signs were stable, patient is alert and oriented, neuro: Nonfocal, CV RRR, lungs clear Time: 06:04 Medical Decision Making Lab Data Result diagrams: 09/27/20 03:34 09/27/20 03:34 Labs: Lab Results 09/27/20 09/27/20 09/27/20 Range/Units 03:34 03:34 03:34 WBC 11.1 H (4.8-10.8) X10*3/uL RBC 3.30 L (4.60-5.80) X10*6/uL Hgb 11.0 L (14.0-18.0) g/dl Hct 32.2 L (42-52) % MCV 97.6 (80-98) fL MCH 33.3 H (27.0-33.0) pg MCHC 34.2 (31.0-36.0) g/dl RDW 13.5 (11.0-16.0) % Plt Count 243 D (160-400) X10*3/uL MPV 9.8 (9.4-12.4) fL Immature Gran % (Auto) 0.4 (0.0-0.4) % Neut % (Auto) 74.5 H (45-73) % Lymph % (Auto) 13.4 L (20-40) % [place] % (Auto) 9.3 (2-11) % Eos % (Auto) 2.3 (0-4) % Baso % (Auto) 0.1 (0-2) % Lymph # (Auto) 1.5 (1.2-4.9) X10*3/uL [place] # (Auto) 1.0 (0.1-1.2) X10*3/uL Eos # (Auto) 0.3 (0.0-0.4) X10*3/uL Baso # (Auto) 0.0 (0.0-0.2) X10*3/uL Abs Immat Gran (auto) 0.05 H (0.00-0.03) X10*3/uL Absolute Neuts (auto) 8.3 (2.0-8.3) X10*3/uL Absolute Nucleated RBC 0.000 (0.0-0.012) X10*3/uL Nucleated RBC % (auto) 0.0 (0.0-0.2) /100WBC Hold Blue Top SEE NOTE Sodium 139 (135-145) mmol/L Potassium 4.3 (3.3-5.1) mmol/L Chloride 112 H (96-108) mmol/L Carbon Dioxide 16 L (22-29) mmol/L Anion Gap 15 (12-20) BUN 44 H (9-16) mg/dL Creatinine 2.09 H (0.5-1.4) mg/dL Estim Creat Clear Calc 29.7 Estimated GFR 31 Random Glucose 155 H D (60-115) mg/dL Calcium 8.9 (8.4-10.2) mg/dL Total Bilirubin 0.3 (0.0-1.0) mg/dL AST 30 (5-37) U/L ALT 40 (0-40) U/L Alkaline Phosphatase 104 (39-117) U/L Total Protein 7.3 (6.5-8.0) g/dL Albumin 3.7 (3.5-5.0) g/dL Urine Color Urine Appearance Urine pH (5.0-8.0) Ur Specific [place] (1.005-1.025) Urine Protein (NEG-TRACE) MG/DL Urine Glucose (UA) (NEG) MG/DL Urine Ketones (NEG) MG/DL Urine Blood (NEG) Urine Nitrite (NEG) Ur Leukocyte Esterase (NEG) 09/27/20 Range/Units 03:34 WBC (4.8-10.8) X10*3/uL RBC (4.60-5.80) X10*6/uL Hgb (14.0-18.0) g/dl Hct (42-52) % MCV (80-98) fL MCH (27.0-33.0) pg MCHC (31.0-36.0) g/dl RDW (11.0-16.0) % Plt Count (160-400) X10*3/uL MPV (9.4-12.4) fL Immature Gran % (Auto) (0.0-0.4) % Neut % (Auto) (45-73) % Lymph % (Auto) (20-40) % [place] % (Auto) (2-11) % Eos % (Auto) (0-4) % Baso % (Auto) (0-2) % Lymph # (Auto) (1.2-4.9) X10*3/uL [place] # (Auto) (0.1-1.2) X10*3/uL Eos # (Auto) (0.0-0.4) X10*3/uL Baso # (Auto) (0.0-0.2) X10*3/uL Abs Immat Gran (auto) (0.00-0.03) X10*3/uL Absolute Neuts (auto) (2.0-8.3) X10*3/uL Absolute Nucleated RBC (0.0-0.012) X10*3/uL Nucleated RBC % (auto) (0.0-0.2) /100WBC Hold Blue Top Sodium (135-145) mmol/L Potassium (3.3-5.1) mmol/L Chloride (96-108) mmol/L Carbon Dioxide (22-29) mmol/L Anion Gap (12-20) BUN (9-16) mg/dL Creatinine (0.5-1.4) mg/dL Estim Creat Clear Calc Estimated GFR Random Glucose (60-115) mg/dL Calcium (8.4-10.2) mg/dL Total Bilirubin (0.0-1.0) mg/dL AST (5-37) U/L ALT (0-40) U/L Alkaline Phosphatase (39-117) U/L Total Protein (6.5-8.0) g/dL Albumin (3.5-5.0) g/dL Urine Color YELLOW Urine Appearance CLEAR Urine pH 5.5 (5.0-8.0) Ur Specific [place] 1.020 (1.005-1.025) Urine Protein NEG (NEG-TRACE) MG/DL Urine Glucose (UA) NEG (NEG) MG/DL Urine Ketones NEG (NEG) MG/DL Urine Blood NEG (NEG) Urine Nitrite NEG (NEG) Ur Leukocyte Esterase NEG (NEG) Discharge Plan Discharge Prescriptions: No Action atorvastatin 80 mg tablet 80 mg PO BEDTIME 90 Days Qty: 90 RF: 1 metoprolol succinate 100 mg tablet extended release 24 hr 100 mg PO DAILY Qty: 90 RF: 3 hydralazine 50 mg tablet 50 mg PO BID 90 Days Qty: 180 RF: 1 amlodipine 10 mg tablet 10 mg PO DAILY Qty: 90 RF: 3 aspirin 81 mg Tablet 81 mg PO DAILY RF: 0
--- NOTE | 2020-09-27 04:28 | PC.NURSE ---
Off to CT on hospital bed.
--- NOTE | 2020-09-27 06:03 | PC.NURSE ---
Med Rec completed at bedside with pt. MD calling Urology for consult.
--- NOTE | 2020-09-27 06:13 | PC.NURSE ---
Covid swab obtained and sent.
[2020-09-27 06:46] LABS: COVID-19 Test Negative (Negative)
--- NOTE | 2020-09-27 07:33 | PC.NURSE ---
Pt resting comfortably in bed. Reports pain to left flank 4/10, much improved than on arrival to ED. No acute vomiting or guarding to area of discomfort. Awaiting Urology consult.
--- NOTE | 2020-09-27 10:43 | PC.NURSE ---
Plan for admission and urology consult while inpatient. Dr Maria at bedside at this time for luis f
--- NOTE | 2020-09-27 10:55 | P.HPHOSP_ITS ---
History of Present Illness Date of Service: 09/27/20 Chief Complaint: acute left flank pain Mr Burns is a 75 year-old man with history of CAD s/p CABG, COD s/p CEA, HLD, HTN, and nephrolithiasis s/p lithotripsy, who was in usual state of health until last night at 23:00, when he suddenly developed severe left-sided flank pain, similar in quality to prior bouts of renal colic. He had associated nausea but no vomiting. He denies dysuria or hematuria. No fever or chills. In the ED, he was found to have a 4 mm stone in the distal left ureter with associated hydroureteronephrosis and perinephric stranding. Serum creatinine was 2.09, compared to a baseline of 1.3-1.4. Urology was called and admission to Medicine was requested given the JOSE ALFREDO. The ED gave the patient ketorolac, IV normal saline, and ondansetron. Review of Systems Review of Systems: Yes all other systems are reviewed and are negative [facility] Medical History Carotid artery occlusion Coronary artery disease High cholesterol HTN (hypertension) Kidney stone Functional capacity: independent ambulation Family history: reviewed and not pertinent Surgical History History of CEA (carotid endarterectomy) History of lithotripsy Hx of CABG Social History Alcohol intake: current Alcohol intake frequency: other Alcohol type: beer Patient Tobacco Use Status: Current someday Tobacco user Use of substances other than those prescribed or required for medical reasons: No Advance Directives: No Advance Directives Information Provided: No Meds Allergies Allergy/AdvReac Type Severity Reaction Status Date / Time No Known Allergies Allergy Verified 09/27/20 03:38 [No Known Allergies*] Active Medications: Current Medications Generic Name Dose Route Start Last Admin Trade Name Freq PRN Reason Stop Dose Admin Acetaminophen 650 mg 09/27/20 10:51 Acetaminophen 325 Mg Tablet PO Q6H PRN Pain, Mild (Pain Scale 1-3) Magnesium Hydroxide 30 ml 09/27/20 10:51 Milk Of Magnesia 30 Ml Oral.Susp PO DAILY PRN Constipation Morphine Sulfate 2 mg 09/27/20 10:54 Morphine Sulfate 4 Mg/Ml Cartridge IVPUSH Q4H PRN Pain, Severe (Pain Scale 7-10) Sodium Chloride 3 ml 09/27/20 16:00 0.9 % Sodium Chloride Flush 3 Ml Syringe IVFLUSH QSHIFT [facility] Home Medications Medication Instructions Recorded Confirmed Last Taken Type aspirin 81 mg PO DAILY 09/27/20 09/27/20 09/26/20 18:00 History Physical Exam Vital Signs and Narrative: Vital Signs: Last Vital Signs Temp 97.9 F 09/27/20 05:07 Pulse 71 09/27/20 07:23 Resp 16 09/27/20 07:23 BP 103/53 L 09/27/20 07:23 Pulse Ox 98 09/27/20 07:23 Body Mass Index 22.4 Gen: in no acute distress HEENT: sclera anicteric, moist mucus membranes Neck: supple Lungs: clear to auscultation bilaterally Heart: regular rate and rhythm, no murmurs Abd: soft, non-tender, non-distended : L CVA tenderness, no suprapubic tenderness Ext: no edema Skin: warm/well-perfused Neuro: alert and oriented x3, no focal findings Psych: appropriate affect Results Labs CBC and Chem 7: 09/27/20 03:34 09/27/20 03:34 Labs: Laboratory Results - last 24 hr 09/27/20 09/27/20 09/27/20 03:34 03:34 03:34 MCV 97.6 MCH 33.3 H MCHC 34.2 RDW 13.5 Plt Count 243 D MPV 9.8 Immature Gran % (Auto) 0.4 Neut % (Auto) 74.5 H Lymph % (Auto) 13.4 L [place] % (Auto) 9.3 Eos % (Auto) 2.3 Baso % (Auto) 0.1 Lymph # (Auto) 1.5 [place] # (Auto) 1.0 Eos # (Auto) 0.3 Baso # (Auto) 0.0 Abs Immat Gran (auto) 0.05 H Absolute Neuts (auto) 8.3 Absolute Nucleated RBC 0.000 Nucleated RBC % (auto) 0.0 Hold Blue Top SEE NOTE Anion Gap 15 Estim Creat Clear Calc 29.7 Estimated GFR 31 Random Glucose 155 H D Calcium 8.9 Total Bilirubin 0.3 AST 30 ALT 40 Alkaline Phosphatase 104 Total Protein 7.3 Albumin 3.7 Urine Color Urine Appearance Urine pH Ur Specific [place] Urine Protein Urine Glucose (UA) Urine Ketones Urine Blood Urine Nitrite Ur Leukocyte Esterase COVID-19 (TANISHA) COVID-19 Clin Com 09/27/20 09/27/20 03:34 06:12 MCV MCH MCHC RDW Plt Count MPV Immature Gran % (Auto) Neut % (Auto) Lymph % (Auto) [place] % (Auto) Eos % (Auto) Baso % (Auto) Lymph # (Auto) [place] # (Auto) Eos # (Auto) Baso # (Auto) Abs Immat Gran (auto) Absolute Neuts (auto) Absolute Nucleated RBC Nucleated RBC % (auto) Hold Blue Top Anion Gap Estim Creat Clear Calc Estimated GFR Random Glucose Calcium Total Bilirubin AST ALT Alkaline Phosphatase Total Protein Albumin Urine Color YELLOW Urine Appearance CLEAR Urine pH 5.5 Ur Specific [place] 1.020 Urine Protein NEG Urine Glucose (UA) NEG Urine Ketones NEG Urine Blood NEG Urine Nitrite NEG Ur Leukocyte Esterase NEG COVID-19 (TANISHA) Negative COVID-19 Clin Com See Note Imaging Radiologist's Impressions: Impressions Abdomen/Pelvis CT 09/27/20 04:05 IMPRESSION: * There is a 4 mm stone within the distal LEFT ureter, 1 cm proximal to the ureterovesical junction associated mild upstream hydroureteronephrosis and perinephric stranding. This stone previously resided within the upper pole of left kidney. * Previously seen 2 mm distal LEFT ureteral stent has passed in the room. * Bilateral nonobstructive intrarenal calculi. * Additional chronic findings as described. Assessment and Plan (1) Ureterolithiasis: Status: Acute (2) JOSE ALFREDO (acute kidney injury): Status: Acute 75 year-old man with history of CAD s/p CABG, COD s/p CEA, HLD, HTN, and nephrolithiasis s/p lithotripsy presenting with acute ureteral colic associated with JOSE ALFREDO. # JOSE ALFREDO - likely due to postrenal obstruction; recheck BMP after urologic intervention # ureterolithiasis - Urology consult, NPO for OR, morphine for pain, tamsulosin, IV fluid hydration # CAD # HLD # HTN - continue ASA, metoprolol, hydralazine, atorvastatin - hold ASA for OR # tobacco abuse - NRT, cessation counseled # VTE ppx - SCDs # code - FULL CODE Quality Stroke Does the patient have a stroke diagnosis?: No VTE Prior VTE?: No VTE Risk Level:: Medical - moderate - high VTE Device Contraindication: N/A - Device Ordered VTE Drug Contraindication: Treatment Not Indicated
[2020-09-27] MEDS: Lactated Ringers 1,000 ML 125 ML IVCONT ×2 (11:53→21:43)
[2020-09-27] MEDS: Nicotine 7 MG PATCH.TD24 TRANSDERMA (12:02)
--- NOTE | 2020-09-27 14:27 | PC.NURSE ---
Pt resting at this time, eyes closed. LR continues to infuse 125ml/hr
[2020-09-27] MEDS: Morphine Sulfate 4 MG/ML CARTRIDGE 2 MG IVPUSH (18:01)
[2020-09-27] MEDS: 0.9 % Sodium Chloride Flush 3 ML SYRINGE IVFLUSH (18:03)
--- NOTE | 2020-09-27 18:40 | PC.NURSE ---
Patient up to unit around 1555. Patient amb w/o assist. Oriented to unit, call hector in reach, bed in lowest position. Patient had a bottle of coke, instructed patient not to drink it due to NPO status pending surgery. Patient verbalizes understanding, placed coke in closet with personal belongings. Patient reports 7/10 L flank pain, morphine administered with good effect. Will pass to incoming RN.
[2020-09-27] MEDS: hydrALAZINE HCl 50 MG TABLET PO (21:23)
[2020-09-27] MEDS: Atorvastatin Calcium 80 MG TABLET PO (21:35)
[2020-09-28] VITALS (12 sets, daily range): BP systolic 95–160; BP diastolic 47–79; PULSE 74–90; RESP 12–20; TEMP 36.3–37.1; O2SAT 96–100; BMI 22.6
[2020-09-28] MEDS: 0.9 % Sodium Chloride Flush 3 ML SYRINGE IVFLUSH ×3 (00:05→16:29)
[2020-09-28] MEDS: Morphine Sulfate 4 MG/ML CARTRIDGE 2 MG IVPUSH ×2 (00:11→08:24)
[2020-09-28 05:38] LABS: Hematocrit 28.5 % (42-52); Hemoglobin 9.6 g/dl (14.0-18.0); Mean Corpuscular HGB Conc 33.7 g/dl (31.0-36.0); Mean Corpuscular Hemoglobin 32.8 pg (27.0-33.0); Mean Corpuscular Volume 97.3 fL (80-98); Mean Platelet Volume 9.9 fL (9.4-12.4); Platelet Count 196 X10*3/uL (160-400); Red Blood Count 2.93 X10*6/uL (4.60-5.80); Red Cell Distribution Width 13.5 % (11.0-16.0); White Blood Count 6.6 X10*3/uL (4.8-10.8)
[2020-09-28 06:11] LABS: Anion Gap 9 (12-20); Blood Urea Nitrogen 37 mg/dL (9-16); Calcium 8.1 mg/dL (8.4-10.2); Carbon Dioxide 20 mmol/L (22-29); Chloride 114 mmol/L (96-108); Creatinine Clr Calc Pharmacy 32.3; Estimated Glomerular Filt Rate 34; Glucose Random 88 mg/dL (60-115); Sodium 139 mmol/L (135-145)
[2020-09-28] MEDS: amLODIPine Besylate 10 MG TABLET PO (08:34)
[2020-09-28] MEDS: hydrALAZINE HCl 50 MG TABLET PO (08:35)
[2020-09-28] MEDS: Metoprolol Succinate ER 100 MG TAB.ER.24H PO (08:35)
--- NOTE | 2020-09-28 09:31 | P.CNUR_ITS ---
History of Present Illness Consult details Consult date: 09/28/20 Narrative: Laron is a pleasant male Admitted to the hospital last night with left-sided distal flank pain and inab ility to maintain fluid intake Prior admission to emergency room had diagnosed left kidney stone CT T scan imaging shows a 4 mm stone in the distal left ureter approximately 1 cm from the ureterovesical junction. Associating mild hydroureteronephrosis and perinephric stranding. On image review this stone appears to be approximately 8 mm. Normal white count. Creatinine elevated to 1.94 Pain has been controlled this morning however is still present Recommendation for intervention with ureteroscopy, laser lithotripsy, stent placement. This was discussed with Laron this morning and opportunity for questions was presented. Review of Systems 2 Constitutional: Constitutional: Denies chills and Denies fever(s) Cardiovascular: Cardiovascular: Reports no additional cardiovascular complaints and Denies syncope Respiratory: Respiratory: Denies cough Gastrointestinal: Gastrointestinal: Denies abdominal pain and Denies heartburn Genitourinary: Genitourinary: Reports as per HPI and Denies change in libido Neurologic: Denies syncope Psychiatric: Psychiatric: Denies change in libido Endocrine: Endocrine: Denies change in libido [facility] Past Medical History Medical History Carotid artery occlusion Coronary artery disease High cholesterol HTN (hypertension) Kidney stone Functional capacity: independent ambulation Family History Family history: reviewed and not pertinent Surgical History Surgical History History of CEA (carotid endarterectomy) History of lithotripsy Hx of CABG Social History Social History Household Members: None Housing: House Do you presently have visiting nurse or other home services: No Alcohol intake: current Alcohol intake frequency: other Alcohol type: beer Patient Tobacco Use Status: Current someday Tobacco user Use of substances other than those prescribed or required for medical reasons: No Have you been hit, kicked, punched, or otherwise hurt by someone within the past year? If so, by whom?: No Do you feel safe in your current relationship?: No Current Relationship Is there a partner from a previous relationship who is making you feel unsafe now?: No Are you made to feel afraid or neglected: No [facility] Practices: Confucianist Advance Directives: No Advance Directives Information Provided: No Do you have thoughts of harming others: None Do you have a plan to hurt others: No Plan Recently lost weight without trying: No Eating poorly because of decreased appetite: No Nutrition Risks: No Nutritional Risk Poor oral hygiene: No Meds Allergies Allergy/AdvReac Type Severity Reaction Status Date / Time No Known Allergies Allergy Verified 09/27/20 03:38 [No Known Allergies*] Active Medications: Current Medications Generic Name Dose Route Start Last Admin Trade Name Freq PRN Reason Stop Dose Admin Acetaminophen 650 mg 09/27/20 10:51 Acetaminophen 325 Mg Tablet PO Q6H PRN Pain, Mild (Pain Scale 1-3) Amlodipine Besylate 10 mg 09/28/20 09:00 09/28/20 08:34 Amlodipine Besylate 10 Mg Tablet PO 10 mg DAILY NARCISO Administration Protocol Atorvastatin Calcium 80 mg 09/27/20 21:00 09/27/20 21:35 Atorvastatin Calcium 80 Mg Tablet PO 80 mg BEDTIME NARCISO Administration Hydralazine HCl 50 mg 09/27/20 21:00 09/28/20 08:35 Hydralazine Hcl 50 Mg Tablet PO 50 mg BID NARCISO Administration Protocol Levofloxacin 500 mg 09/28/20 09:30 Levofloxacin 500 Mg Tablet PO 09/28/20 09:31 ONCE ONE Magnesium Hydroxide 30 ml 09/27/20 10:51 Milk Of Magnesia 30 Ml Oral.Susp PO DAILY PRN Constipation Metoprolol Succinate 100 mg 09/27/20 10:55 09/28/20 08:35 Metoprolol Succinate Er 100 Mg Tab.Er.24h PO 100 mg DAILY NARCISO Administration Protocol Morphine Sulfate 2 mg 09/27/20 10:54 09/28/20 08:24 Morphine Sulfate 4 Mg/Ml Cartridge IVPUSH 2 mg Q4H PRN Administration Pain, Severe (Pain Scale 7-10) Nicotine 7 mg 09/27/20 12:00 09/27/20 12:02 Nicotine 7 Mg Patch.Td24 TRANSDERMA 7 mg DAILY NARCISO Administration Sodium Chloride 3 ml 09/27/20 16:00 09/28/20 08:28 0.9 % Sodium Chloride Flush 3 Ml Syringe IVFLUSH 3 ml QSHIFT NARCISO Administration Tamsulosin HCl 0.4 mg 09/27/20 18:00 09/27/20 18:03 Tamsulosin Hcl 0.4 Mg Capsule PO Not Given DAILY@1800 [facility] Home Medications Medication Instructions Recorded Confirmed Last Taken Type aspirin 81 mg PO DAILY 09/27/20 09/27/20 09/26/20 18:00 History Physical Exam Vital Signs: Vital Signs: Last Vital Signs Temp 98.1 F 09/28/20 07:40 Pulse 90 09/28/20 07:40 Resp 18 09/28/20 07:40 BP 160/74 H 09/28/20 07:40 Pulse Ox 99 09/28/20 07:40 Body Mass Index 22.6 Const: General: cooperative, healthy appearing, comfortable and no acute distress Orientation/consciousness: patient oriented x3 HENMT: Face and sinus: Yes normal facial exam Mouth: moist mucous membranes Neck: Neck: Yes normal visual inspection, Yes full ROM and Yes trachea midline Chest: Chest palpation & inspection: normal inspection of the chest Resp: Effort & Inspection: normal respiratory effort, able to speak in complete sentences and no respiratory distress GI: Inspection: Yes normal to inspection Back/Spine/Pelvis: Cervical Spine: normal cervical lordosis Thoracic/Lumbar Spine: thoracic and lumbar spine normal to inspection Skin: General skin exam: no rashes or lesions noted Neuro: General: patient oriented x3, gait normal, tone normal and moves all extremities Extrem: General: Yes normal to inspection and Yes capillary refill normal Results Labs Result diagrams: 09/28/20 05:27 09/28/20 05:27 Labs: Abnormal lab results 09/28/20 09/28/20 Range/Units 05:27 05:27 RBC 2.93 L (4.60-5.80) X10*6/uL Hgb 9.6 L (14.0-18.0) g/dl Hct 28.5 L (42-52) % Chloride 114 H (96-108) mmol/L Carbon Dioxide 20 L (22-29) mmol/L Anion Gap 9 L (12-20) BUN 37 H (9-16) mg/dL Creatinine 1.94 H (0.5-1.4) mg/dL Calcium 8.1 L D (8.4-10.2) mg/dL Short CBC 09/28/20 Range/Units 05:27 WBC 6.6 (4.8-10.8) X10*3/uL Hgb 9.6 L (14.0-18.0) g/dl Hct 28.5 L (42-52) % Plt Count 196 (160-400) X10*3/uL BMP 09/28/20 05:27 Sodium 139 Potassium 4.0 Chloride 114 H Carbon Dioxide 20 L BUN 37 H Creatinine 1.94 H Calcium 8.1 L D Urine 09/27/20 Range/Units 03:34 Urine Color YELLOW Urine Appearance CLEAR Urine pH 5.5 (5.0-8.0) Ur Specific [place] 1.020 (1.005-1.025) Urine Protein NEG (NEG-TRACE) MG/DL Urine Glucose (UA) NEG (NEG) MG/DL All other labs normal. Assessment and Plan (1) Ureterolithiasis: Status: Acute (2) JOSE ALFREDO (acute kidney injury): Status: Acute Ureteroscopy We discussed the nature of the decision and reasonable alternatives for perfo rming the above surgery. Interventions include chemical dissolution, ESWL, ureteroscopy with laser lithotripsy and stent placement, PCNL. Options such as medical therapy were discussed. The relative uncertainties and benefits related to each alternate procedure were adequately discussed. General surgical risks including, but not limited to, pain, bleeding, infection, myocardial infarction, pulmonary embolus, deep vein thrombosis and cerebrovascular accident which may result in further hospitaliz ation were discussed. Full disclosure of the procedure as well as all major risks, benefits and co mplications were discussed including but not limited to damage to the urethra, bladder and kidney infection, damage to the ureter, stent migration or malposition, scarring to the renal pelvis, remnant stone fragments, subsequent stone passage with need for secondary procedures. The overall secondary procedure rate is approximately 10-15%. The success rate of the procedure was discussed. Success of the procedure in the short-term does not necessarily guarantee that long-term success will be main tained. Suitable follow up will need to be maintained. The patient showed understanding of discussion and wishes to proceed with - cystoscopy, retrograde, ureteroscopy, possible lithotripsy/stone basketing and stent on the left side Procedures Date of Service Date of Service: 09/28/20
--- NOTE | 2020-09-28 09:51 | MHC.CM.PN ---
IMM 09/28/20 Male 75 DX Kidney stone. Pt lives alone. He is independent all functional mobility. DP home no services. Patients car is in lot. He plans to drive home when discharged. CM will follow.
[2020-09-28] MEDS: levoFLOXacin 500 MG TABLET PO (10:17)
[2020-09-28] MEDS: Nicotine 7 MG PATCH.TD24 TRANSDERMA (12:04)
--- NOTE | 2020-09-28 12:25 | P.PNIM_ITS ---
Subjective Subjective Date of Service: 09/28/20 Interval History: L flank pain No chest pain No N/V Awaiting operative intervention Physical Exam Vital Signs: Vital Signs: Last Vital Signs Temp 98 F 09/28/20 11:42 Pulse 84 09/28/20 11:42 Resp 16 09/28/20 11:42 BP 113/58 L 09/28/20 11:42 Pulse Ox 97 09/28/20 11:42 Body Mass Index 22.6 Gen: in no acute distress HEENT: sclera anicteric, moist mucus membranes Neck: supple Lungs: clear to auscultation bilaterally Heart: regular rate and rhythm, no murmurs Abd: soft, non-tender, non-distended : L CVAT Ext: no edema Skin: warm/well-perfused Neuro: alert and oriented x3, no focal findings Psych: appropriate affect Objective Data Current Medications Generic Name Dose Route Start Last Admin Trade Name Freq PRN Reason Stop Dose Admin Acetaminophen 650 mg 09/27/20 10:51 Acetaminophen 325 Mg Tablet PO Q6H PRN Pain, Mild (Pain Scale 1-3) Amlodipine Besylate 10 mg 09/28/20 09:00 09/28/20 08:34 Amlodipine Besylate 10 Mg Tablet PO 10 mg DAILY NARCISO Administration Protocol Atorvastatin Calcium 80 mg 09/27/20 21:00 09/27/20 21:35 Atorvastatin Calcium 80 Mg Tablet PO 80 mg BEDTIME NARCISO Administration Hydralazine HCl 50 mg 09/27/20 21:00 09/28/20 08:35 Hydralazine Hcl 50 Mg Tablet PO 50 mg BID NARCISO Administration Protocol Magnesium Hydroxide 30 ml 09/27/20 10:51 Milk Of Magnesia 30 Ml Oral.Susp PO DAILY PRN Constipation Metoprolol Succinate 100 mg 09/27/20 10:55 09/28/20 08:35 Metoprolol Succinate Er 100 Mg Tab.Er.24h PO 100 mg DAILY NARCISO Administration Protocol Morphine Sulfate 2 mg 09/27/20 10:54 09/28/20 08:24 Morphine Sulfate 4 Mg/Ml Cartridge IVPUSH 2 mg Q4H PRN Administration Pain, Severe (Pain Scale 7-10) Nicotine 7 mg 09/27/20 12:00 09/27/20 12:02 Nicotine 7 Mg Patch.Td24 TRANSDERMA 7 mg DAILY NARCISO Administration Sodium Chloride 3 ml 09/27/20 16:00 09/28/20 08:28 0.9 % Sodium Chloride Flush 3 Ml Syringe IVFLUSH 3 ml QSHIFT REPLACED BY [facility] Administration Tamsulosin HCl 0.4 mg 09/27/20 18:00 09/27/20 18:03 Tamsulosin Hcl 0.4 Mg Capsule PO Not Given DAILY@1800 REPLACED BY [facility] Labs CBC & Chem 7: 09/28/20 05:27 09/28/20 05:27 Labs: Laboratory Results - last 24 hr 09/28/20 09/28/20 05:27 05:27 WBC 6.6 RBC 2.93 L Hgb 9.6 L Hct 28.5 L MCV 97.3 MCH 32.8 MCHC 33.7 RDW 13.5 Plt Count 196 MPV 9.9 Absolute Nucleated RBC 0.000 Nucleated RBC % (auto) 0.0 Sodium 139 Potassium 4.0 Chloride 114 H Carbon Dioxide 20 L Anion Gap 9 L BUN 37 H Creatinine 1.94 H Estim Creat Clear Calc 32.3 Estimated GFR 34 Random Glucose 88 D Calcium 8.1 L D Quality Stroke Does the patient have a stroke diagnosis?: No VTE Prior VTE?: No VTE Risk Level:: Medical - moderate - high VTE Device Contraindication: N/A - Device Ordered VTE Drug Contraindication: Treatment Not Indicated Assessment and Plan (1) Ureterolithiasis: Status: Acute (2) JOSE ALFREDO (acute kidney injury): Status: Acute Assessment and Plan: hospital d#2 75 year-old M with history of CAD s/p CABG, COD s/p CEA, HLD, HTN, and nephrolithiasis s/p lithotripsy presenting with acute ureteral colic associated with JOSE ALFREDO. # JOSE ALFREDO - likely due to postrenal obstruction; SCr slightly improved; monitor SCr after urologic intervention # ureterolithiasis - Urology consult, NPO for OR, morphine for pain, tamsulosin, IV fluid hydration # CAD # HLD # HTN - continue ASA, metoprolol, hydralazine, atorvastatin - hold ASA for OR # tobacco abuse - NRT, cessation counseled
--- NOTE | 2020-09-28 12:37 | HO.ANESPROP2 ---
HPI - Anesthesia Eval Consult details Narrative: 75 yo male patient here jameson cysto, ureteroscopy, retro, laser lithotripsy, stent left ureter PMFSH Active Problems Active Problems: All Active Problems (Updated 09/27/20 @ 11:00 by Spencer Maria MD) Carotid artery occlusion (Acute) Coronary artery disease (Acute) JOSE ALFREDO (acute kidney injury) (Acute) Ureterolithiasis (Acute) Carotid stenosis, bilateral (Acute) Past Medical History Medical History (Updated 09/28/20 @ 13:42 by Alexa Celeste) Carotid artery occlusion Coronary artery disease High cholesterol HTN (hypertension) Kidney stone Functional capacity: independent ambulation Family History Family history of problems with anesthesia: No Surgical History Surgical History History of CEA (carotid endarterectomy) History of lithotripsy Hx of CABG History of Problems with Anesthesia: No Social History Social History Household Members: None Housing: House Do you presently have visiting nurse or other home services: No Alcohol intake: current Alcohol intake frequency: 3 or more drinks per day Alcohol type: beer Patient Tobacco Use Status: Current someday Tobacco user Cigarettes Per Day: 5 Use of substances other than those prescribed or required for medical reasons: No Currently Displaying Signs/Symptoms of Drug Intoxication Withdrawal: No Have you been hit, kicked, punched, or otherwise hurt by someone within the past year? If so, by whom?: No Do you feel safe in your current relationship?: No Current Relationship Is there a partner from a previous relationship who is making you feel unsafe now?: No Are you made to feel afraid or neglected: No Nondenominational Healthcare Practices: Moravian Are you DNR?: No Advance Directives: No Advance Directives Information Provided: No Do you have thoughts of harming others: None Do you have a plan to hurt others: No Plan Recently lost weight without trying: No Eating poorly because of decreased appetite: No Nutrition Risks: No Nutritional Risk Poor oral hygiene: No service: Yes Current occupational status: retired Meds Allergies Allergy/AdvReac Type Severity Reaction Status Date / Time No Known Allergies Allergy Verified 09/27/20 03:38 [No Known Allergies*] Active Medications: Current Medications Generic Name Dose Route Start Last Admin Trade Name Freq PRN Reason Stop Dose Admin Acetaminophen 650 mg 09/27/20 10:51 Acetaminophen 325 Mg Tablet PO Q6H PRN Pain, Mild (Pain Scale 1-3) Amlodipine Besylate 10 mg 09/28/20 09:00 09/28/20 08:34 Amlodipine Besylate 10 Mg Tablet PO 10 mg DAILY [facility] Administration Protocol Atorvastatin Calcium 80 mg 09/27/20 21:00 09/27/20 21:35 Atorvastatin Calcium 80 Mg Tablet PO 80 mg BEDTIME [facility] Administration Hydralazine HCl 50 mg 09/27/20 21:00 09/28/20 08:35 Hydralazine Hcl 50 Mg Tablet PO 50 mg BID [facility] Administration Protocol Lactated Ringer's 1,000 mls @ 100 mls/hr 09/28/20 12:45 Lr IVCONT .Q10H [facility] Magnesium Hydroxide 30 ml 09/27/20 10:51 Milk Of Magnesia 30 Ml Oral.Susp PO DAILY PRN Constipation Metoprolol Succinate 100 mg 09/27/20 10:55 09/28/20 08:35 Metoprolol Succinate Er 100 Mg Tab.Er.24h PO 100 mg DAILY [facility] Administration Protocol Morphine Sulfate 2 mg 09/27/20 10:54 09/28/20 08:24 Morphine Sulfate 4 Mg/Ml Cartridge IVPUSH 2 mg Q4H PRN Administration Pain, Severe (Pain Scale 7-10) Nicotine 7 mg 09/27/20 12:00 09/28/20 12:04 Nicotine 7 Mg Patch.Td24 TRANSDERMA 7 mg DAILY [facility] Administration Sodium Chloride 3 ml 09/27/20 16:00 09/28/20 08:28 0.9 % Sodium Chloride Flush 3 Ml Syringe IVFLUSH 3 ml QSHIFT [facility] Administration Tamsulosin HCl 0.4 mg 09/27/20 18:00 09/27/20 18:03 Tamsulosin Hcl 0.4 Mg Capsule PO Not Given DAILY@1800 [facility] Home Medications Medication Instructions Recorded Confirmed Last Taken Type aspirin 81 mg PO DAILY 09/27/20 09/27/20 09/26/20 18:00 History Exam Exam Date and Time: September 28, 2020 1237 Height,Weight and Vital Signs: Height 5 ft 9 in Weight 69.6 kg Last Vital Signs Temp 98 F 09/28/20 11:42 Pulse 84 09/28/20 11:42 Resp 16 09/28/20 11:42 BP 113/58 L 09/28/20 11:42 Pulse Ox 97 09/28/20 11:42 Pertinent Lab Results Pertinent Lab Results: Laboratory Tests 09/27/20 09/27/20 09/27/20 03:34 03:34 03:34 WBC 11.1 H RBC 3.30 L Hgb 11.0 L Hct 32.2 L MCV 97.6 MCH 33.3 H MCHC 34.2 RDW 13.5 Plt Count 243 D MPV 9.8 Immature Gran % (Auto) 0.4 Neut % (Auto) 74.5 H Lymph % (Auto) 13.4 L [place] % (Auto) 9.3 Eos % (Auto) 2.3 Baso % (Auto) 0.1 Lymph # (Auto) 1.5 [place] # (Auto) 1.0 Eos # (Auto) 0.3 Baso # (Auto) 0.0 Abs Immat Gran (auto) 0.05 H Absolute Neuts (auto) 8.3 Absolute Nucleated RBC 0.000 Nucleated RBC % (auto) 0.0 Hold Blue Top SEE NOTE Sodium 139 Potassium 4.3 Chloride 112 H Carbon Dioxide 16 L Anion Gap 15 BUN 44 H Creatinine 2.09 H Estim Creat Clear Calc 29.7 Estimated GFR 31 Random Glucose 155 H D Calcium 8.9 Total Bilirubin 0.3 AST 30 ALT 40 Alkaline Phosphatase 104 Total Protein 7.3 Albumin 3.7 Urine Color Urine Appearance Urine pH Ur Specific [place] Urine Protein Urine Glucose (UA) Urine Ketones Urine Blood Urine Nitrite Ur Leukocyte Esterase COVID-19 ([facility]) COVID-19 Clin Com 09/27/20 09/27/20 09/28/20 03:34 06:12 05:27 WBC 6.6 RBC 2.93 L Hgb 9.6 L Hct 28.5 L MCV 97.3 MCH 32.8 MCHC 33.7 RDW 13.5 Plt Count 196 MPV 9.9 Immature Gran % (Auto) Neut % (Auto) Lymph % (Auto) [place] % (Auto) Eos % (Auto) Baso % (Auto) Lymph # (Auto) [place] # (Auto) Eos # (Auto) Baso # (Auto) Abs Immat Gran (auto) Absolute Neuts (auto) Absolute Nucleated RBC 0.000 Nucleated RBC % (auto) 0.0 Hold Blue Top Sodium Potassium Chloride Carbon Dioxide Anion Gap BUN Creatinine Estim Creat Clear Calc Estimated GFR Random Glucose Calcium Total Bilirubin AST ALT Alkaline Phosphatase Total Protein Albumin Urine Color YELLOW Urine Appearance CLEAR Urine pH 5.5 Ur Specific [place] 1.020 Urine Protein NEG Urine Glucose (UA) NEG Urine Ketones NEG Urine Blood NEG Urine Nitrite NEG Ur Leukocyte Esterase NEG COVID-19 ([facility]) Negative COVID-19 Clin Com See Note 09/28/20 05:27 WBC RBC Hgb Hct MCV MCH MCHC RDW Plt Count MPV Immature Gran % (Auto) Neut % (Auto) Lymph % (Auto) [place] % (Auto) Eos % (Auto) Baso % (Auto) Lymph # (Auto) [place] # (Auto) Eos # (Auto) Baso # (Auto) Abs Immat Gran (auto) Absolute Neuts (auto) Absolute Nucleated RBC Nucleated RBC % (auto) Hold Blue Top Sodium 139 Potassium 4.0 Chloride 114 H Carbon Dioxide 20 L Anion Gap 9 L BUN 37 H Creatinine 1.94 H Estim Creat Clear Calc 32.3 Estimated GFR 34 Random Glucose 88 D Calcium 8.1 L D Total Bilirubin AST ALT Alkaline Phosphatase Total Protein Albumin Urine Color Urine Appearance Urine pH Ur Specific [place] Urine Protein Urine Glucose (UA) Urine Ketones Urine Blood Urine Nitrite Ur Leukocyte Esterase COVID-19 ([facility]) COVID-19 Clin Com Airway Mallampati Class: II TM Dist: >3cm Neck ROM: Full Loose/Missing/Broken Teeth: Yes (Many missing) Heart: RRR Lungs: CTAB Assessment and Plan Assessment Anesthesia Assessment: Anesthesia Plan Discussed and Chart Reviewed Final Anesthetic Review NPO: Yes ASA Class: III Final Preanesthetic Review: No Changes in Pt Med Stat, Meds/Allgs Chart Reviewed, Consent Obtained/Reviewed and Anes Risks/Benef Reviewed Patient Risk: Intermediate Procedure Risk: Low Assessment/Block/Sedation in SS: Assess/Block/Sedation-SS Anesthetic Plan Anesthetic Plan: GA Disposition: Inp. Admit - Standard Bed
--- NOTE | 2020-09-28 13:57 | P.CONAN_ITS ---
HPI - Anesthesia Eval Consult details Narrative: 75 yo male patient here for cysto, ureteroscopy, retro, laser lit hotripsy, stent left ureter PMFSH Active Problems Active Problems: All Active Problems (Updated 09/28/20 @ 13:42 by Alexa Celeste) Carotid artery occlusion (Acute) Coronary artery disease (Acute) JOSE ALFREDO (acute kidney injury) (Acute) Ureterolithiasis (Acute) Carotid stenosis, bilateral (Acute) Past Medical History Medical History (Updated 09/28/20 @ 13:58 by Alexa Celeste) Anemia Carotid artery occlusion Coronary artery disease High cholesterol HTN (hypertension) Kidney stone Functional capacity: independent ambulation Family History Family history of problems with anesthesia: No Surgical History Surgical History History of CEA (carotid endarterectomy) History of lithotripsy Hx of CABG History of Problems with Anesthesia: No Social History Social History Household Members: None Housing: House Do you presently have visiting nurse or other home services: No Alcohol intake: current Alcohol intake frequency: 3 or more drinks per day Alcohol type: beer Patient Tobacco Use Status: Current someday Tobacco user Cigarettes Per Day: 5 Use of substances other than those prescribed or required for medical reasons: No Currently Displaying Signs/Symptoms of Drug Intoxication Withdrawal: No Have you been hit, kicked, punched, or otherwise hurt by someone within the past year? If so, by whom?: No Do you feel safe in your current relationship?: No Current Relationship Is there a partner from a previous relationship who is making you feel unsafe now?: No Are you made to feel afraid or neglected: No Yarsanism Healthcare Practices: Jew Are you DNR?: No Advance Directives: No Advance Directives Information Provided: No Do you have thoughts of harming others: None Do you have a plan to hurt others: No Plan Recently lost weight without trying: No Eating poorly because of decreased appetite: No Nutrition Risks: No Nutritional Risk Poor oral hygiene: No service: Yes Current occupational status: retired [employer] Allergies Allergy/AdvReac Type Severity Reaction Status Date / Time No Known Allergies Allergy Verified 09/27/20 03:38 [No Known Allergies*] Active Medications: Current Medications Generic Name Dose Route Start Last Admin Trade Name Freq PRN Reason Stop Dose Admin Acetaminophen 650 mg 09/27/20 10:51 Acetaminophen 325 Mg Tablet PO Q6H PRN Pain, Mild (Pain Scale 1-3) Acetaminophen 650 mg 09/28/20 13:45 Acetaminophen 325 Mg Tablet PO ONCE PRN Pain, Mild (Pain Scale 1-3) Amlodipine Besylate 10 mg 09/28/20 09:00 09/28/20 08:34 Amlodipine Besylate 10 Mg Tablet PO 10 mg DAILY [facility] Administration Protocol Atorvastatin Calcium 80 mg 09/27/20 21:00 09/27/20 21:35 Atorvastatin Calcium 80 Mg Tablet PO 80 mg BEDTIME [facility] Administration Fentanyl 25 mcg 09/28/20 13:45 Fentanyl Citrate/Pf 100 Mcg/2 Ml Vial IVPUSH Q5M PRN Pain, Moderate (Pain Scale 4-6 Hydralazine HCl 50 mg 09/27/20 21:00 09/28/20 08:35 Hydralazine Hcl 50 Mg Tablet PO 50 mg BID [facility] Administration Protocol Lactated Ringer's 1,000 mls @ 100 mls/hr 09/28/20 12:45 Lr IVCONT .Q10H [facility] [place] Magnesium Hydroxide 30 ml 09/27/20 10:51 Milk Of Magnesia 30 Ml Oral.Susp PO DAILY PRN Constipation Metoprolol Succinate 100 mg 09/27/20 10:55 09/28/20 08:35 Metoprolol Succinate Er 100 Mg Tab.Er.24h PO 100 mg DAILY [facility] [place] Administration Protocol Morphine Sulfate 2 mg 09/27/20 10:54 09/28/20 08:24 Morphine Sulfate 4 Mg/Ml Cartridge IVPUSH 2 mg Q4H PRN Administration Pain, Severe (Pain Scale 7-10) Nicotine 7 mg 09/27/20 12:00 09/28/20 12:04 Nicotine 7 Mg Patch.Td24 TRANSDERMA 7 mg DAILY [facility] [place] Administration Ondansetron HCl 4 mg 09/28/20 13:45 Ondansetron Hcl 4 Mg/2 Ml Vial IVPUSH ONCE PRN Nausea and Vomiting Oxycodone HCl 5 mg 09/28/20 13:45 Oxycodone Hcl Immed Release 5 Mg Tablet PO ONCE PRN Pain, Severe (Pain Scale 7-10) Sodium Chloride 3 ml 09/27/20 16:00 09/28/20 08:28 0.9 % Sodium Chloride Flush 3 Ml Syringe IVFLUSH 3 ml QSHIFT [facility] [place] Administration Tamsulosin HCl 0.4 mg 09/27/20 18:00 09/27/20 18:03 Tamsulosin Hcl 0.4 Mg Capsule PO Not Given DAILY@1800 [facility] [place] Home Medications Medication Instructions Recorded Confirmed Last Taken Type aspirin 81 mg PO DAILY 09/27/20 09/27/20 09/26/20 18:00 History Exam Exam Date and Time: September 28, 2020 1357 Height,Weight and Vital Signs: Height 5 ft 9 in Weight 69.6 kg Last Vital Signs Temp 98.4 F 09/28/20 12:53 Pulse 87 09/28/20 12:53 Resp 18 09/28/20 12:53 BP 157/79 H 09/28/20 12:53 Pulse Ox 99 09/28/20 12:53 Pertinent Lab Results Pertinent Lab Results: Laboratory Tests 09/27/20 09/27/20 09/27/20 03:34 03:34 03:34 WBC 11.1 H RBC 3.30 L Hgb 11.0 L Hct 32.2 L MCV 97.6 MCH 33.3 H MCHC 34.2 RDW 13.5 Plt Count 243 D MPV 9.8 Immature Gran % (Auto) 0.4 Neut % (Auto) 74.5 H Lymph % (Auto) 13.4 L [place] % (Auto) 9.3 Eos % (Auto) 2.3 Baso % (Auto) 0.1 Lymph # (Auto) 1.5 [place] # (Auto) 1.0 Eos # (Auto) 0.3 Baso # (Auto) 0.0 Abs Immat Gran (auto) 0.05 H Absolute Neuts (auto) 8.3 Absolute Nucleated RBC 0.000 Nucleated RBC % (auto) 0.0 Hold Blue Top SEE NOTE Sodium 139 Potassium 4.3 Chloride 112 H Carbon Dioxide 16 L Anion Gap 15 BUN 44 H Creatinine 2.09 H Estim Creat Clear Calc 29.7 Estimated GFR 31 Random Glucose 155 H D Calcium 8.9 Total Bilirubin 0.3 AST 30 ALT 40 Alkaline Phosphatase 104 Total Protein 7.3 Albumin 3.7 Urine Color Urine Appearance Urine pH Ur Specific [place] Urine Protein Urine Glucose (UA) Urine Ketones Urine Blood Urine Nitrite Ur Leukocyte Esterase COVID-19 ([facility]) COVID-19 Clin Com 09/27/20 09/27/20 09/28/20 03:34 06:12 05:27 WBC 6.6 RBC 2.93 L Hgb 9.6 L Hct 28.5 L MCV 97.3 MCH 32.8 MCHC 33.7 RDW 13.5 Plt Count 196 MPV 9.9 Immature Gran % (Auto) Neut % (Auto) Lymph % (Auto) [place] % (Auto) Eos % (Auto) Baso % (Auto) Lymph # (Auto) [place] # (Auto) Eos # (Auto) Baso # (Auto) Abs Immat Gran (auto) Absolute Neuts (auto) Absolute Nucleated RBC 0.000 Nucleated RBC % (auto) 0.0 Hold Blue Top Sodium Potassium Chloride Carbon Dioxide Anion Gap BUN Creatinine Estim Creat Clear Calc Estimated GFR Random Glucose Calcium Total Bilirubin AST ALT Alkaline Phosphatase Total Protein Albumin Urine Color YELLOW Urine Appearance CLEAR Urine pH 5.5 Ur Specific [place] 1.020 Urine Protein NEG Urine Glucose (UA) NEG Urine Ketones NEG Urine Blood NEG Urine Nitrite NEG Ur Leukocyte Esterase NEG COVID-19 ([facility]) Negative COVID-19 Clin Com See Note 09/28/20 05:27 WBC RBC Hgb Hct MCV MCH MCHC RDW Plt Count MPV Immature Gran % (Auto) Neut % (Auto) Lymph % (Auto) [place] % (Auto) Eos % (Auto) Baso % (Auto) Lymph # (Auto) [place] # (Auto) Eos # (Auto) Baso # (Auto) Abs Immat Gran (auto) Absolute Neuts (auto) Absolute Nucleated RBC Nucleated RBC % (auto) Hold Blue Top Sodium 139 Potassium 4.0 Chloride 114 H Carbon Dioxide 20 L Anion Gap 9 L BUN 37 H Creatinine 1.94 H Estim Creat Clear Calc 32.3 Estimated GFR 34 Random Glucose 88 D Calcium 8.1 L D Total Bilirubin AST ALT Alkaline Phosphatase Total Protein Albumin Urine Color Urine Appearance Urine pH Ur Specific [place] Urine Protein Urine Glucose (UA) Urine Ketones Urine Blood Urine Nitrite Ur Leukocyte Esterase COVID-19 ([facility]) COVID-19 Clin Com Airway Mallampati Class: II TM Dist: >3cm Neck ROM: Full Loose/Missing/Broken Teeth: Yes (Many missing) Heart: RRR Lungs: CTAB Assessment and Plan Assessment Anesthesia Assessment: Anesthesia Plan Discussed and Chart Reviewed Final Anesthetic Review NPO: Yes ASA Class: III Final Preanesthetic Review: No Changes in Pt Med Stat, Meds/Allgs Chart Reviewed, Consent Obtained/Reviewed and Anes Risks/Benef Reviewed Patient Risk: Intermediate Procedure Risk: Low Assessment/Block/Sedation in SS: Assess/Block/Sedation-SS Anesthetic Plan Anesthetic Plan: GA Disposition: Inp. Admit - Standard Bed
[2020-09-28] MEDS: Lactated Ringers 1,000 ML 100 ML IVCONT (14:19)
--- NOTE | 2020-09-28 14:22 | MHC.SHP ---
Pre-Procedural Eval Section A The patient is an INPATIENT: Yes Changes since office visit: No Cold of Flu in the past 2 weeks, No New Medical Problems, No Changes in Medication and No Patient answered all questions The History & Physical has been completed within 30 days and I have reviewed it.: Yes Section B Chief Complaint: kidney stone Allergies: Allergies Allergy/AdvReac Type Severity Reaction Status Date / Time No Known Allergies Allergy Verified 09/27/20 03:38 [No Known Allergies*] Plan Diagnosis/Plan: Unchanged (Cystoscopy, left retrograde, left ureteroscopy laser lithotripsy and stent placement) I have reviewed the history and physical and performed a pertinent physical examination on my patient. No changes have occurred unless specified.
--- NOTE | 2020-09-28 15:08 | W.PM.OPN ---
Operative Note Operative Note Date of Service: 09/28/20 Narrative: PreOperative Diagnosis: Distal left ureteric stone Post Operative Diagnosis: Distal left ureteric stone Procedure: - left cystoscopy, retrograde - dilatation of ureteric orifice under fluoroscopy - left ureteroscopy, laser lithotripsy, stone basketing - stent placement Surgeon: Dr Alan Mcintosh Anesthesia: General Indications for procedure: 75-year-old male. Admitted through emergency room with 3 days with the pain. Creatinine up to 2.0. Distal 4 mm ureteric stone with mild hydroureteronephrosis. Recommend intervention with ureteroscopy and laser lithotripsy. Procedure: After informed consent was verified patient was brought to the operating placed in supine position. Anesthesia was administered per protocol. Patient was placed in modified dorsal lithotomy position and prepped and draped in a sterile fashion. Safety pause time-out and side of surgery confirmed. Antibiotics confirmed. Twenty-two Martiniquais cystoscope inserted per urethra. No abnormality noted of the anterior posterior urethra. Bladder was normal on examination. Both ureteric orifices normal position. Normal bladder mucosa. The left ureteric orifice was cannulated and a retrograde examination was performed. Filling defect was seen in the distal portion of the left ureter. Mild hydroureteronephrosis a progressing to no significant hydronephrosis was noted. Sensor guidewire was placed. Debris was then expressed around the wire. Cystoscope was removed. Nikky dilator was used for dilatation of ureteric orifice under fluoroscopy. Rigid ureteral scope was placed in using a laser the stone was broken into small pieces. A Zero tip basket was used to remove this stone fragments. These were sent for analysis. The wire was backloaded through the cystoscope and a 6 Martin[place] by 22 cm stent was placed. Good coil seen within the renal pelvis and the bladder. Bladder was emptied. Patient was transferred in stable condition to the recovery area. Pathology: Stones Drains: 6 [place] by 24 cm stent
[2020-09-28] MEDS: Phenazopyridine HCL 100 MG TABLET PO (15:33)
--- NOTE | 2020-09-28 17:50 | P.DS_ITS ---
DS: Providers Provider Date of Service: 09/28/20 Date of admission: 09/27/20 10:51 Primary care physician: Franco Goel MD Consults: 09/27/20 10:51 Consult to Urology Routine Consulting Provider: [facility] Reason for consultation: obstructing L ureteral stone DS: Diagnosis Discharge Diagnosis (1) Ureterolithiasis: Status: Acute (2) JOSE ALFREDO (acute kidney injury): Status: Acute (3) Hydronephrosis: Status: Acute DS: Medications Discharge Medications Home Medications: Home Medications Medication Instructions Recorded Confirmed aspirin 81 mg PO DAILY 09/27/20 09/27/20 Previous Rx's Medication Instructions Recorded atorvastatin 80 mg tablet 80 mg PO BEDTIME 90 Days #90 tab 05/04/20 metoprolol succinate 100 mg 100 mg PO DAILY #90 tab 07/15/20 tablet,extended release 24 hr hydralazine 50 mg tablet 50 mg PO BID 90 Days #180 tab 07/20/20 amlodipine 10 mg tablet 10 mg PO DAILY #90 tab 07/30/20 nicotine 7 mg TRANSDERMAL DAILY 30 Days ea 09/28/20 phenazopyridine [Pyridium] 100 mg PO TID PRN 4 Days #12 tab 09/28/20 tamsulosin 0.4 mg PO BEDTIME 14 Days #14 cap 09/28/20 DS: Summary Hospital Course Hospital Course: from my admission H+P, 09/27/20: Mr Burns is a 75 year-old man with history of CAD s/p CABG, COD s/p CEA, HLD, HTN, and nephrolithiasis s/p lithotripsy, who was in usual state of health until last night at 23:00, when he suddenly developed severe left-sided flank pain, similar in quality to prior bouts of renal colic. He had associated nausea but no vomiting. He denies dysuria or hematuria. No fever or chills. In the ED, he was found to have a 4 mm stone in the distal left ureter with associated hydroureteronephrosis and perinephric stranding. Serum creatinine was 2.09, compared to a baseline of 1.3-1.4. Urology was called and admission to Medicine was requested given the JOSE ALFREDO. The ED gave the patient ketorolac, IV normal saline, and ondansetron. The patient was admitted to the [facility]. Urology was consulted. On 09/28/20, he underwent left cystoscopy, retrograde, dilatation of ureteric orifice under fluoroscopy, left ureteroscopy, laser lithotripsy, stone basketing, and stent placement without complication. Creatinine improved from 2.09 to 1.94. Suspicion is of postrenal obstruction. He was discharged home with instructions to follow up with Primary Care and Urology and to repeat a non-fasting BMP in 3-4 days. Smoking cessation was counseled and NRT prescribed. Time Spent with Patient Time attestation: Total time spent providing and/or coordinating discharge services: 35 Discharge coordination time: Greater than 30 minutes Quality: Stroke Does the patient have a stroke diagnosis?: No Physical Exam Vital Signs: Vital Signs: Last Vital Signs Temp 97.3 F 09/28/20 16:41 Pulse 84 09/28/20 16:41 Resp 18 09/28/20 16:41 BP 144/66 H 09/28/20 16:41 Pulse Ox 96 09/28/20 16:41 Body Mass Index 22.6 Gen: in no acute distress HEENT: sclera anicteric, moist mucus membranes Neck: supple Lungs: clear to auscultation bilaterally Heart: regular rate and rhythm, no murmurs Abd: soft, non-tender, non-distended Ext: no edema Skin: warm/well-perfused Neuro: alert and oriented x3, no focal findings Psych: appropriate affect DS: Data Data Completed and Pending Completed studies during hospitalization [Text1]: Laboratory Results WBC 6.6 X10*3/uL (4.8-10.8) 09/28/20 05:27 RBC 2.93 X10*6/uL (4.60-5.80) L 09/28/20 05:27 Hgb 9.6 g/dl (14.0-18.0) L 09/28/20 05:27 Hct 28.5 % (42-52) L 09/28/20 05:27 MCV 97.3 fL (80-98) 09/28/20 05:27 MCH 32.8 pg (27.0-33.0) 09/28/20 05:27 MCHC 33.7 g/dl (31.0-36.0) 09/28/20 05:27 RDW 13.5 % (11.0-16.0) 09/28/20 05:27 Plt Count 196 X10*3/uL (160-400) 09/28/20 05:27 MPV 9.9 fL (9.4-12.4) 09/28/20 05:27 Immature Gran % (Auto) 0.4 % (0.0-0.4) 09/27/20 03:34 Neut % (Auto) 74.5 % (45-73) H 09/27/20 03:34 Lymph % (Auto) 13.4 % (20-40) L 09/27/20 03:34 [place] % (Auto) 9.3 % (2-11) 09/27/20 03:34 Eos % (Auto) 2.3 % (0-4) 09/27/20 03:34 Baso % (Auto) 0.1 % (0-2) 09/27/20 03:34 Lymph # (Auto) 1.5 X10*3/uL (1.2-4.9) 09/27/20 03:34 [place] # (Auto) 1.0 X10*3/uL (0.1-1.2) 09/27/20 03:34 Eos # (Auto) 0.3 X10*3/uL (0.0-0.4) 09/27/20 03:34 Baso # (Auto) 0.0 X10*3/uL (0.0-0.2) 09/27/20 03:34 Abs Immat Gran (auto) 0.05 X10*3/uL (0.00-0.03) H 09/27/20 03:34 Absolute Neuts (auto) 8.3 X10*3/uL (2.0-8.3) 09/27/20 03:34 Absolute Nucleated RBC 0.000 X10*3/uL (0.0-0.012) 09/28/20 05:27 Nucleated RBC % (auto) 0.0 /100WBC (0.0-0.2) 09/28/20 05:27 Hold Blue Top SEE NOTE 09/27/20 03:34 Sodium 139 mmol/L (135-145) 09/28/20 05:27 Potassium 4.0 mmol/L (3.3-5.1) 09/28/20 05:27 Chloride 114 mmol/L (96-108) H 09/28/20 05:27 Carbon Dioxide 20 mmol/L (22-29) L 09/28/20 05:27 Anion Gap 9 (12-20) L 09/28/20 05:27 BUN 37 mg/dL (9-16) H 09/28/20 05:27 Creatinine 1.94 mg/dL (0.5-1.4) H 09/28/20 05:27 Estim Creat Clear Calc 32.3 09/28/20 05:27 Estimated GFR 34 09/28/20 05:27 Random Glucose 88 mg/dL (60-115) D 09/28/20 05:27 Calcium 8.1 mg/dL (8.4-10.2) L D 09/28/20 05:27 Total Bilirubin 0.3 mg/dL (0.0-1.0) 09/27/20 03:34 AST 30 U/L (5-37) 09/27/20 03:34 ALT 40 U/L (0-40) 09/27/20 03:34 Alkaline Phosphatase 104 U/L (39-117) 09/27/20 03:34 Total Protein 7.3 g/dL (6.5-8.0) 09/27/20 03:34 Albumin 3.7 g/dL (3.5-5.0) 09/27/20 03:34 Urine Color YELLOW 09/27/20 03:34 Urine Appearance CLEAR 09/27/20 03:34 Urine pH 5.5 (5.0-8.0) 09/27/20 03:34 Ur Specific [place] 1.020 (1.005-1.025) 09/27/20 03:34 Urine Protein NEG MG/DL (NEG-TRACE) 09/27/20 03:34 Urine Glucose (UA) NEG MG/DL (NEG) 09/27/20 03:34 Urine Ketones NEG MG/DL (NEG) 09/27/20 03:34 Urine Blood NEG (NEG) 09/27/20 03:34 Urine Nitrite NEG (NEG) 09/27/20 03:34 Ur Leukocyte Esterase NEG (NEG) 09/27/20 03:34 COVID-19 (TANISHA) Negative (Negative) 09/27/20 06:12 COVID-19 Clin Com See Note 09/27/20 06:12 Impressions Abdomen/Pelvis CT 09/27/20 04:05 IMPRESSION: * There is a 4 mm stone within the distal LEFT ureter, 1 cm proximal to the ureterovesical junction associated mild upstream hydroureteronephrosis and perinephric stranding. This stone previously resided within the upper pole of left kidney. * Previously seen 2 mm distal LEFT ureteral stent has passed in the room. * Bilateral nonobstructive intrarenal calculi. * Additional chronic findings as described. Guidance Fluoroscopy 09/28/20 13:53 IMPRESSION: Fluoroscopy guidance for left internal ureteral stent placement. Pending studies at discharge: Pending at discharge 09/28/20 15:16 Surgical [PTH] Routine Discharge Plan Discharge Patient Disposition: Home, Self-Care Discharge Diagnosis: Nephrolithiasis Referrals: Alan Mcintosh MD [Physician] - 1 Week (Stent removal) Franco Goel MD [Primary Care Provider] - None Discharge Medications: New phenazopyridine [Pyridium] 100 mg tablet 100 mg PO TID PRN (Reason: Spasm) 4 Days Qty: 12 RF: 0 tamsulosin 0.4 mg capsule 0.4 mg PO BEDTIME 14 Days Qty: 14 RF: 0 nicotine 7 mg/24 hr Patch 24 Hour 7 mg transdermal DAILY 30 Days RF: 0 Continued atorvastatin 80 mg tablet 80 mg PO BEDTIME 90 Days Qty: 90 RF: 1 metoprolol succinate 100 mg tablet extended release 24 hr 100 mg PO DAILY Qty: 90 RF: 3 hydralazine 50 mg tablet 50 mg PO BID 90 Days Qty: 180 RF: 1 amlodipine 10 mg tablet 10 mg PO DAILY Qty: 90 RF: 3 aspirin 81 mg Tablet 81 mg PO DAILY RF: 0 Discharge Orders: Discharge Order (Routine); Ordered 09/28/20 Ordered By: Spencer Maria Diet: advance to usual diet Activity on Discharge: As tolerated Stand Alone Forms: Patient Portal Discharge page Other Ambulatory Orders: Basic Metabolic Panel (Routine) Timeframe: 3 Days Facility: [facility] - Location: Laboratory Ordered By: Spencer Maria Care Plan Goals: resolution of kidney pain and medical kidney injury Health Concerns: ureteral stone, acute kidney injury Plan of Treatment: recheck lab- nonfasting basic metabolic panel- on or Monday of this week follow up with your primary care doctor in 1 week follow up with Dr Mcintosh [Urology] in 2 weeks stop smoking- use nicotine patch to help you stop Assessment: as above Patient Instructions: Ureteral Stones (DC), Ureteral Stent Placement (DC) Discharge Date/Time: 09/28/20 18:19
[2020-10-03 02:26] LABS: Stone Source LEFT KIDNEY STONE
== END 2020-09-28 18:19 | disposition home or self-care (01) | DRG 660 ==
LOC: HO.ED 09:35 → HO.EDOVER 11:23 → HO.IMC 17:15
PROVIDERS: Urology; Admitting Provider Family Medicine; Emergency Provider Student in an Organized Health Care Education/Training Program; PCP Internal Medicine; Visit Provider Family Medicine
PROC: 0T788DZ Dilation of Bilateral Ureters with Intraluminal Device, Via Natural or Artificial Opening Endoscopic (ICD-10-PCS; principal; 2020-09-28 20:10)
DX: N20.1 Calculus of ureter (principal); N13.30 Unspecified hydronephrosis; N17.9 Acute kidney failure, unspecified; I25.10 Atherosclerotic heart disease of native coronary artery without angina pectoris; E78.5 Hyperlipidemia, unspecified; I10 Essential (primary) hypertension; Z20.822 Contact with and (suspected) exposure to COVID-19; Z95.1 Presence of aortocoronary bypass graft; Z87.442 Personal history of urinary calculi; F17.210 Nicotine dependence, cigarettes, uncomplicated; Z71.6 Tobacco abuse counseling; Z79.82 Long term (current) use of aspirin; Z79.899 Other long term (current) drug therapy
CPT/HCPCS: 36415; 74176; 80048; 80053; 81003; 82365; 85025; 85027; 87635; 88300; 99285; C1769; C2617; J1100; J1885; J2270; J2405; J3010; Q9967

== ENCOUNTER 2020-10-01 10:20 | Outpatient (REF) | payer MEDICARE, SELFPAY ==
[2020-10-01 11:46] LABS: Anion Gap 13 (12-20); Blood Urea Nitrogen 33 mg/dL (9-16); Calcium 9.6 mg/dL (8.4-10.2); Carbon Dioxide 22 mmol/L (22-29); Chloride 109 mmol/L (96-108); Estimated Glomerular Filt Rate 42; Glucose Random 103 mg/dL (60-115); Potassium 4.4 mmol/L (3.3-5.1); Sodium 140 mmol/L (135-145)
== END 2020-10-01 10:21 | disposition home or self-care (01) ==
LOC: HO.LAB 10:20
PROVIDERS: PCP Internal Medicine; Referring Provider Internal Medicine; Visit Provider Family Medicine
DX: N17.9 Acute kidney failure, unspecified (principal)
CPT/HCPCS: 36415; 80048

== ENCOUNTER → 2020-10-09 09:39 | Outpatient (BNVA) | payer MEDICARE, SELFPAY | PROVIDERS: PCP Internal Medicine; Visit Provider Urology | DX: N20.0 Calculus of kidney (principal) | CPT/HCPCS: 52310; 99212 ==

== ENCOUNTER → 2020-10-29 13:19 | Outpatient (BNVA) | payer MEDICARE, SELFPAY | PROVIDERS: PCP Internal Medicine; Referring Provider Internal Medicine; Visit Provider Internal Medicine Cardiovascular Disease | DX: I25.10 Atherosclerotic heart disease of native coronary artery without angina pectoris (principal); I10 Essential (primary) hypertension | CPT/HCPCS: 99212 ==

== ENCOUNTER 2020-11-02 06:55 | Outpatient (REF) | payer MEDICARE, SELFPAY ==
[2020-11-02 07:55] LABS: Cholesterol 123 mg/dL; HDL Cholesterol 38 mg/dL; LDL Cholesterol Calculated 74 mg/dl; Triglycerides 59 mg/dL
== END 2020-11-02 06:56 | disposition home or self-care (01) ==
LOC: HO.LAB 06:55
PROVIDERS: PCP Internal Medicine; Visit Provider Internal Medicine Cardiovascular Disease
DX: I25.10 Atherosclerotic heart disease of native coronary artery without angina pectoris (principal)
CPT/HCPCS: 36415; 80061

== ENCOUNTER 2020-11-03 08:35 | Outpatient (REF) | payer MEDICARE, SELFPAY ==
--- NOTE | ~2020-11-03 | US_ITS ---
EXAMINATION: US RETROPERITONEAL LIMITED (RENAL ONLY) CLINICAL INFORMATION: Calculus of kidney. COMPARISON: CT abdomen and pelvis 09/27/2020. Ultrasound kidneys 04/13/2020 and 10/14/2019. X-ray abdomen KUB 06/17/2019. TECHNIQUE: Real-time imaging of the kidneys. FINDINGS: RIGHT KIDNEY: 11.6 x 5.9 x 5.5 cm (SAG x AP x TRV). The kidney is normal in size, contour, and echogenicity. Renal cortical thickness is normal. There is a 4 x 3 x 6 mm stone in the midpole and a 6 x 4 x 4 mm stone in the upper pole. No focal parenchymal lesions or hydronephrosis. LEFT KIDNEY: 11.0 x 6.8 x 4.4 cm (SAG x AP x TRV). The kidney is normal in size, contour, and echogenicity. Renal cortical thickness is normal. There is a 9 x 5 x 8 mm stone in the lower pole. There are 3 left peripelvic cysts,, largest measuring 1.4 x 1 x 1.4 cm in the lower pole. No hydronephrosis. US/US renal BI IMPRESSION: Bilateral renal stones. Left renal cysts.
== END 2020-11-03 08:36 | disposition home or self-care (01) ==
LOC: HO.US 08:35
PROVIDERS: Visit Provider Urology
DX: N20.0 Calculus of kidney (principal)
CPT/HCPCS: 76775

== ENCOUNTER → 2020-11-19 10:47 | Outpatient (BNVA) | payer OTHER, SELFPAY | PROVIDERS: PCP Internal Medicine; Visit Provider Urology | DX: N20.0 Calculus of kidney (principal) | CPT/HCPCS: 99212 ==

== ENCOUNTER 2020-11-24 07:14 | Outpatient (REF) | payer MEDICARE, SELFPAY ==
[2020-11-24 08:11] LABS: Imm Gran Abs Auto 0.01 X10*3/uL (0.00-0.03); MANUAL DIFF FLAG SCAN; PLT CLUMP 1; SCAN SMEAR FLAG 1
[2020-11-24 08:14] LABS: Basophils Percent Auto 0.2 % (0-2); Eosinophils Absolute Auto 0.1 X10*3/uL (0.0-0.4); Eosinophils Percent Auto 1.2 % (0-4); Hematocrit 32.7 % (42-52); Hemoglobin 10.6 g/dl (14.0-18.0); Imm Gran Pct Auto 0.2 % (0.0-0.4); Lymphocytes Absolute Auto 1.1 X10*3/uL (1.2-4.9); Lymphocytes Percent Auto 26.7 % (20-40); Mean Corpuscular HGB Conc 32.4 g/dl (31.0-36.0); Mean Corpuscular Hemoglobin 31.7 pg (27.0-33.0); Mean Corpuscular Volume 97.9 fL (80-98); Mean Platelet Volume 11.2 fL (9.4-12.4); Monocytes Absolute Auto 0.4 X10*3/uL (0.1-1.2); Neutrophils Absolute Auto 2.6 X10*3/uL (2.0-8.3); Neutrophils Percent Auto 62.7 % (45-73); Red Blood Count 3.34 X10*6/uL (4.60-5.80); Red Cell Distribution Width 13.6 % (11.0-16.0); White Blood Count 4.1 X10*3/uL (4.8-10.8)
[2020-11-24 08:38] LABS: Platelet Count 181 X10*3/uL (160-400)
[2020-11-24 08:39] LABS: SLIDE REVIEW VERIFIED
[2020-11-24 08:59] LABS: Alanine Aminotransferase 35 U/L (0-40); Albumin Level 3.9 g/dL (3.5-5.0); Alkaline Phosphatase 112 U/L (39-117); Anion Gap 16 (12-20); Aspartate Amino Transferase 45 U/L (5-37); Bilirubin Total 0.2 mg/dL (0.0-1.0); Blood Urea Nitrogen 21 mg/dL (9-16); Calcium 8.9 mg/dL (8.4-10.2); Carbon Dioxide 16 mmol/L (22-29); Chloride 112 mmol/L (96-108); Estimated Glomerular Filt Rate 52; Glucose Random 106 mg/dL (60-115); Iron 89 mcg/dL (45-160); Percent Iron Saturation 46 % (15-50); Potassium 4.4 mmol/L (3.3-5.1); Sodium 140 mmol/L (135-145); Total Iron Binding Capacity 194 mcg/dL (228-428); Total Protein 7.8 g/dL (6.5-8.0); Unsaturated Iron Binding 105 ug/dL
== END 2020-11-24 07:15 | disposition home or self-care (01) ==
LOC: HO.LAB 07:14
PROVIDERS: PCP Internal Medicine; Visit Provider Internal Medicine
DX: D64.9 Anemia, unspecified (principal); J44.9 Chronic obstructive pulmonary disease, unspecified; I12.9 Hypertensive chronic kidney disease with stage 1 through stage 4 chronic kidney disease, or unspecified chronic kidney disease; N18.9 Chronic kidney disease, unspecified
CPT/HCPCS: 36415; 80053; 83540; 85025

== ENCOUNTER 2020-11-30 07:44 | Day surgery (SDC) | payer MEDICARE, SELFPAY ==
--- NOTE | 2020-11-27 09:24 | HO.ANESPROP2 ---
Documented by User: Ivett De Paz NP 11/27/20 09:29 HPI - Anesthesia Eval Consult details Narrative: 75yo M for Right Cystoscopy, Ureteroroscopy, Retro, Laser with Poss Stent Placement s/p cysto, stent 09/2020 with GA-LMA 4 Routine cardiac visit 10/29/20: CAD and HTN stable, pt active without symptoms +ETOH: 3+ drinks daily PMFSH Active Problems Active Problems: All Active Problems (Updated 10/29/20 @ 14:20 by Yayo Smith MD) HTN (hypertension) (Acute) Nephrolithiasis (Acute) Hydronephrosis (Acute) Anemia (Acute) Carotid artery occlusion (Acute) Coronary artery disease (Acute) JOSE ALFREDO (acute kidney injury) (Acute) Carotid stenosis, bilateral (Acute) Past Medical History Medical History Anemia Carotid artery occlusion Coronary artery disease High cholesterol HTN (hypertension) Kidney stone Family History Family history of problems with anesthesia: No Surgical History Surgical History History of CEA (carotid endarterectomy) History of lithotripsy Hx of CABG History of Problems with Anesthesia: No Social History Social History Household Members: None Housing: House Do you presently have visiting nurse or other home services: No Alcohol intake: current Alcohol intake frequency: 3 or more drinks per day Alcohol type: beer Patient Tobacco Use Status: Current someday Tobacco user Tobacco use type: Cigarette Cigarettes Per Day: 5 Smoked in Last 30 Days: Yes Use of substances other than those prescribed or required for medical reasons: No Are you DNR?: No Advance Directives: No Advance Directives Information Provided: Yes Recently lost weight without trying: No Nutrition Risks: No Nutritional Risk Poor oral hygiene: No service: Yes Current occupational status: retired Meds Allergies Allergy/AdvReac Type Severity Reaction Status Date / Time No Known Allergies Allergy Verified 11/19/20 11:48 [No Known Allergies*] Home Medications Medication Instructions Recorded Confirmed Last Taken Type aspirin 81 mg tablet 81 mg PO DAILY 09/27/20 11/19/20 09/26/20 18:00 History lisinopril 20 mg tablet 20 mg PO DAILY 10/09/20 11/19/20 Unknown History [id number] 3.5 ml OTIC (EARS) 10/09/20 11/19/20 Unknown History mg/mL-10,000 unit/mL-1 % ear solution prednisone 10 mg tablet mg PO 10/09/20 11/19/20 Unknown History Exam Exam Date and Time: November 27, 2020 0924 Pertinent Lab Results Pertinent Lab Results: Laboratory Tests 11/24/20 11/24/20 07:36 07:36 WBC 4.1 L Hgb 10.6 L Hct 32.7 L Plt Count 181 Sodium 140 Potassium 4.4 Chloride 112 H Carbon Dioxide 16 L BUN 21 H Creatinine 1.34 Narrative Narrative: EKG 10/29/20 SB @ 56 US carotid duplex BI 08/2020 IMPRESSION: 1. RIGHT: Minimal, non-hemodynamically significant stenosis of the proximal right internal carotid artery corresponding to a 0-49% stenosis by velocity criteria. ? 2. LEFT: Moderate, hemodynamically significant stenosis of the proximal left internal carotid artery corresponding to a 50-79% stenosis by velocity criteria. ? 3. There is no change in the category severity of disease when compared to the previous study dated March 05, 2019. ? 4. Elevated velocity within the left external carotid artery consistent with moderate, hemodynamically significant stenosis. This is new from the 2019 comparison. Assessment and Plan Assessment Anesthesia Assessment: Chart Reviewed Final Anesthetic Review Family History of Problems with Anesthesia: No History of Problems with Anesthesia: No Documented by User: Alexa Celeste MD 11/30/20 11:49 [facility] Past Medical History Medical History Anemia Carotid artery occlusion Coronary artery disease High cholesterol HTN (hypertension) Kidney stone Surgical History Surgical History History of CEA (carotid endarterectomy) History of lithotripsy Hx of CABG Social History Social History Household Members: None Housing: House Do you presently have visiting nurse or other home services: No Alcohol intake: current Alcohol intake frequency: 3 or more drinks per day Alcohol type: beer Patient Tobacco Use Status: Current someday Tobacco user Tobacco use type: Cigarette Cigarettes Per Day: 5 Smoked in Last 30 Days: Yes Use of substances other than those prescribed or required for medical reasons: No Are you DNR?: No Advance Directives: No Advance Directives Information Provided: Yes Recently lost weight without trying: No Nutrition Risks: No Nutritional Risk Poor oral hygiene: No service: Yes Current occupational status: retired [employer] Allergies Allergy/AdvReac Type Severity Reaction Status Date / Time No Known Allergies Allergy Verified 11/19/20 11:48 [No Known Allergies*] Home Medications Medication Instructions Recorded Confirmed Last Taken Type aspirin 81 mg tablet 81 mg PO DAILY 09/27/20 11/19/20 09/26/20 18:00 History lisinopril 20 mg tablet 20 mg PO DAILY 10/09/20 11/19/20 Unknown History [id number]-yulzpudhx 3.5 ml OTIC (EARS) 10/09/20 11/19/20 Unknown History mg/mL-10,000 unit/mL-1 % ear solution prednisone 10 mg tablet mg PO 10/09/20 11/19/20 Unknown History Exam Height,Weight and Vital Signs: Height 5 ft 9 in Weight 68.039 kg Vital Signs Temp Pulse Resp BP Pulse Ox 11/30/20 09:07 97.8 F 70 16 169/66 H 100 Airway Mallampati Class: II TM Dist: >3cm Neck ROM: Full Loose/Missing/Broken Teeth: Yes (Many missing and broken) Heart: RRR Lungs: CTAB Assessment and Plan Assessment Anesthesia Assessment: Anesthesia Plan Discussed Final Anesthetic Review NPO: Yes ASA Class: III Final Preanesthetic Review: No Changes in Pt Med Stat, Meds/Allgs Chart Reviewed, Consent Obtained/Reviewed and Anes Risks/Benef Reviewed Patient Risk: Intermediate Procedure Risk: Low Assessment/Block/Sedation in SS: Assess/Block/Sedation-SS Anesthetic Plan Anesthetic Plan: GA Disposition: Standard PACU
--- NOTE | ~2020-11-30 | FL_ITS ---
EXAMINATION: XR FLUOROSCOPY WITH IMAGES CLINICAL INFORMATION: Kidney stones. COMPARISON: None. TECHNIQUE: Fluoroscopy performed by Dr. Alan Mcintosh. Fluoroscopy time: 0.3 minutes DAP: 2.74 mGy-cm2 Images: 3 FINDINGS: The first image reveals contrast opacifying the right kidney pelvis and the ureter with filling defect in the right kidney pelvis, likely gas. The subsequent images reveal internal ureteral stent with its proximal end in the kidney pelvis and its distal end in the pelvis. FL/FL guidance in OR IMPRESSION: Contrast opacified right kidney pelvis reveals small filling defects consistent with gas. Subsequent images reveal a right ureteral stent in place.
[2020-11-30 09:02] VITALS: BMI 22.1
[2020-11-30 09:07] VITALS: BP 169/66; PULSE 70; RESP 16; TEMP 36.6; O2SAT 100
[2020-11-30] MEDS: levoFLOXacin 500 MG TABLET PO (09:17)
[2020-11-30] MEDS: Lactated Ringers 1,000 ML 100 ML IVCONT (09:44)
--- NOTE | 2020-11-30 12:06 | MHC.SHP ---
Pre-Procedural Eval Section A Date of Service: 11/30/20 Section B Chief Complaint: Calculus of kidney Details of Present Illness: Right two renal stones 4 mm each Relevant Social History: None Present Medications: see Short Stay Collaborative assessment Medical History: No relevant PMH History of Previous Operations: No relevant previous surgery Allergies: Allergies Allergy/AdvReac Type Severity Reaction Status Date / Time No Known Allergies Allergy Verified 11/19/20 11:48 [No Known Allergies*] Review of Systems Sugical H&P ROS: Negative: Constitution, Cardiovascular, Respiratory, Neurological, Psychiatric, Hem-Onc, Allergic/Immunologic, Gastrointestinal, Genitourinary, Musculoskeletal, Integumentary, Endocrine and Eyes/Ears/Nose/Throat Exam Surgical H&P Exam: Normal: HEENT, Normal: Heart, Normal: Lungs, Normal: Extremities, Normal: Abdomen, Normal: Skin and Normal: Neurological Plan Diagnosis/Plan: Unchanged (Right ureteroscopy laser lithotripsy and stent placement) I have reviewed the history and physical and performed a pertinent physical examination on my patient. No changes have occurred unless specified.
[2020-11-30 13:09] VITALS: BP 138/89; PULSE 56; RESP 12; O2SAT 100
[2020-11-30 13:14] VITALS: BP 128/65; PULSE 55; RESP 14; O2SAT 97
--- NOTE | 2020-11-30 13:18 | W.PM.OPN ---
Operative Note Operative Note Date of Service: 11/30/20 Narrative: PreOperative Diagnosis: Right renal stones Post Operative Diagnosis: Right renal stones in multiple calices Procedure: - right cystoscopy, retrograde - right dilatation of ureteric orifice under fluoroscopy - right ureteroscopy, laser lithotripsy, stone basketing - right stent placement Surgeon: Dr Alan Mcintosh Anesthesia: General Indications for procedure: Multiple stones within right renal collecting system Procedure: After informed consent was verified patient was brought to the operating placed in supine position. Anesthesia was administered per protocol. Patient was placed in modified dorsal lithotomy position and prepped and draped in a sterile fashion. Safety pause time-out and side of surgery confirmed. Antibiotics confirmed. Twenty-two [place]an cystoscope was inserted per urethra. No abnormalities noted of anterior posterior urethra. Bladder was normal. Right ureteric orifice seen in normal position. Cannulated. Retrograde examination performed. No filling defects seen in ureter or within the renal pelvis. Sensor guidewire placed up to the level renal pelvis. Cystoscope removed. Right ureter dilated under fluoroscopy with internal sheath from right access sheath. Right access sheath placed. Sensor guidewire in of cell inspector removed. Flexible ureteroscopy performed with Olympus digital ureteral scope. Stones found within the upper pole calyx, middle calyx, lower pole calyx. Multiple stones submucosal within mid pole calyx. Using a basket 2 4 mm stones removed from the upper pole calyx. Using a holmium laser the middle pole stones were broken into small pieces and these pieces removed by basketing. The stone was very hard and appeared to be calcium oxalate monohydrate. These were sent for analysis. When all stones had been removed from the mid and lower pole the procedure was complete. Sensor guidewire was placed. Ureteric access sheath removed. The wire was backloaded into the cystoscope and a 6 [place]an by 24 cm double-J ureteric catheter placed without difficulty. Good coil seen within the renal pelvis and in the bladder under fluoroscopy. Bladder was emptied. He tolerated the procedure and was extubated in operating room transferred in stable condition to the recovery area. Pathology: Stones Drains: Right double-J stent
[2020-11-30 13:19] VITALS: BP 135/67; PULSE 63; RESP 16; O2SAT 97
[2020-11-30 13:24] VITALS: BP 129/63; PULSE 60; RESP 16; O2SAT 99
[2020-11-30] MEDS: Phenazopyridine HCL 100 MG TABLET PO (13:38)
[2020-11-30 13:39] VITALS: BP 146/86; PULSE 66; RESP 16; O2SAT 100
[2020-12-05 21:36] LABS: Stone Source KIDNEY
== END 2020-11-30 14:05 | disposition home or self-care (01) ==
PROVIDERS: PCP Internal Medicine; Visit Provider Urology
PROC: (CPT 52356; principal; 2020-11-30 10:30)
DX: N20.0 Calculus of kidney (principal); Z87.442 Personal history of urinary calculi; I10 Essential (primary) hypertension; I65.21 Occlusion and stenosis of right carotid artery; I25.10 Atherosclerotic heart disease of native coronary artery without angina pectoris; Z95.1 Presence of aortocoronary bypass graft; F17.210 Nicotine dependence, cigarettes, uncomplicated; Z79.82 Long term (current) use of aspirin; Z79.899 Other long term (current) drug therapy; Z79.52 Long term (current) use of systemic steroids
CPT/HCPCS: 52356; 52352; 82365; 88300; C1758; C1769; C1894; C2617; J1100; J1885; J2405; J3010; Q9967

== ENCOUNTER → 2020-12-16 08:43 | Outpatient (BNVA) | payer MEDICARE, SELFPAY | PROVIDERS: PCP Internal Medicine; Visit Provider Urology | DX: N20.0 Calculus of kidney (principal) | CPT/HCPCS: 52310; 99212 ==

== ENCOUNTER 2021-01-20 08:35 | Outpatient (REF) | payer MEDICARE, SELFPAY ==
--- NOTE | ~2021-01-20 | US_ITS ---
EXAMINATION: US RETROPERITONEAL LIMITED (RENAL ONLY), BILATERAL CLINICAL INFORMATION: Calculus of kidney. COMPARISON: Renal ultrasound 11/12/2020 and 11/03/2020. CT abdomen and pelvis 09/27/2020. X-ray abdomen 11/16/2020. KUB 06/17/2019. TECHNIQUE: Real-time imaging of the kidneys. FINDINGS: RIGHT KIDNEY: 11.8 x 4.3 x 5.6 cm (SAG x AP x TRV). The kidney is normal in size, contour, and echogenicity. Renal cortical thickness is normal. No renal calculi or hydronephrosis. Lower pole simple cyst measuring 0.6 cm. Findings are not clinically significant, and no dedicated followup imaging is recommended for the cyst. Previously seen right-sided renal stones not appreciated on the current ultrasound examination. LEFT KIDNEY: 11.4 x 4.8 x 5.4 cm (SAG x AP x TRV). The kidney is normal in size, contour, and echogenicity. Renal cortical thickness is normal. No renal calculi or hydronephrosis. Simple cyst measuring 1.6 cm within the lower pole and 1.2 cm within the midpole. Findings are not clinically significant, and no dedicated followup imaging is recommended for the cyst. Previously seen renal stones not appreciated on the current ultrasound. US/US renal BI IMPRESSION: Previously seen bilateral renal stones not appreciated on the current renal ultrasound. No hydronephrosis.
== END 2021-01-20 08:36 | disposition home or self-care (01) ==
LOC: HO.US 08:35
PROVIDERS: PCP Internal Medicine; Visit Provider Urology
DX: N20.0 Calculus of kidney (principal)
CPT/HCPCS: 76775

== ENCOUNTER 2021-01-28 | Outpatient (REF) | payer MEDICARE, SELFPAY ==
[2021-01-28 10:51] LABS: MANUAL DIFF FLAG NO
[2021-01-28 11:18] LABS: Basophils Percent Auto 0.6 % (0-2); Eosinophils Absolute Auto 0.1 X10*3/uL (0.0-0.4); Eosinophils Percent Auto 2.5 % (0-4); Hemoglobin 9.8 g/dl (14.0-18.0); Imm Gran Abs Auto 0.01 X10*3/uL (0.00-0.03); Imm Gran Pct Auto 0.2 % (0.0-0.4); Lymphocytes Absolute Auto 1.5 X10*3/uL (1.2-4.9); Lymphocytes Percent Auto 27.9 % (20-40); Mean Corpuscular HGB Conc 32.7 g/dl (31.0-36.0); Mean Corpuscular Hemoglobin 31.8 pg (27.0-33.0); Mean Corpuscular Volume 97.4 fL (80-98); Mean Platelet Volume 11.1 fL (9.4-12.4); Monocytes Absolute Auto 0.5 X10*3/uL (0.1-1.2); Monocytes Percent Auto 10.1 % (2-11); Neutrophils Absolute Auto 3.1 X10*3/uL (2.0-8.3); Neutrophils Percent Auto 58.7 % (45-73); Platelet Count 241 X10*3/uL (160-400); Red Blood Count 3.08 X10*6/uL (4.60-5.80); Red Cell Distribution Width 14.6 % (11.0-16.0); White Blood Count 5.2 X10*3/uL (4.8-10.8)
[2021-01-28 11:48] LABS: Cholesterol 106 mg/dL; HDL Cholesterol 34 mg/dL; Iron 79 mcg/dL (45-160); LDL Cholesterol Calculated 59 mg/dl; Percent Iron Saturation 39 % (15-50); Total Iron Binding Capacity 201 mcg/dL (228-428); Triglycerides 67 mg/dL; Unsaturated Iron Binding 122 ug/dL
[2021-01-28 11:56] LABS: Ferritin 696 ng/mL (20-250)
[2021-01-28 12:26] LABS: Folate 19.6 ng/mL (> or = 4.0); Vitamin B12 392 pg/mL (200-900)
[2021-01-29 17:42] LABS: Immunoglobulin A 510 mg/dL (70-320)
[2021-02-03 09:46] LABS: Gliadin Deamidated IgA Ab 2.1 U/mL; Gliadin Deamidated IgG Ab 26.5 U/mL; Transglutaminase Ab IgG <1.0 U/mL; Transglutaminase IgA <1.0 U/mL
[2021-02-03 14:46] LABS: Endomysial IgA Antibody Negative (Negative)
== END 2021-01-28 00:01 | disposition home or self-care (01) ==
LOC: HO.LAB
PROVIDERS: Internal Medicine Cardiovascular Disease; Visit Provider Internal Medicine
DX: D64.9 Anemia, unspecified (principal)
CPT/HCPCS: 36415; 80061; 82607; 82728; 82746; 82784; 83516; 83540; 85025; 86255

== ENCOUNTER → 2021-01-28 08:36 | Outpatient (BNVA) | payer MEDICARE, SELFPAY | PROVIDERS: PCP Internal Medicine; Visit Provider Urology | DX: N20.0 Calculus of kidney (principal) | CPT/HCPCS: 36415; 80061; 85025; Q3014 ==

== ENCOUNTER 2021-02-08 12:44 | Day surgery (SDC) | payer MEDICARE, SELFPAY ==
--- NOTE | 2021-02-05 08:51 | HO.ANESPROP2 ---
Documented by User: Ivett De Paz NP 02/05/21 08:55 HPI - Anesthesia Eval Consult details Narrative: 75yo M for Upper Endoscopy and Colonoscopy s/p cysto, stent 11/2020 with GA-LMA 4 Routine cardiac visit 10/29/20: CAD and HTN stable, pt active without symptoms +ETOH: 3+ drinks daily PMFSH Active Problems Active Problems: All Active Problems (Updated 12/16/20 @ 09:43 by Alan Mcintosh MD) Carotid stenosis, bilateral (Acute) JOSE ALFREDO (acute kidney injury) (Acute) Hydronephrosis (Acute) Nephrolithiasis (Acute) HTN (hypertension) (Acute) Anemia (Acute) Carotid artery occlusion (Acute) Coronary artery disease (Acute) Past Medical History Medical History Anemia Carotid artery occlusion Coronary artery disease High cholesterol HTN (hypertension) Kidney stone Family History Family history of problems with anesthesia: No Surgical History Surgical History (Updated 02/01/21 @ 16:21 by Latrice Babcock RN) History of CEA (carotid endarterectomy) History of cystoscopy History of lithotripsy Hx of CABG History of Problems with Anesthesia: No Social History Social History Household Members: None Housing: House Do you presently have visiting nurse or other home services: No Alcohol intake: current Alcohol intake frequency: does not drink Alcohol type: beer Patient Tobacco Use Status: Current someday Tobacco user Tobacco use type: Cigarette Cigarettes Per Day: 5 Second Hand Smoke Exposure: No Use of substances other than those prescribed or required for medical reasons: No Are you DNR?: No Advance Directives: No Advance Directives Information Provided: Yes Advance Directives on File: No service: Yes Current occupational status: retired Meds Allergies Allergy/AdvReac Type Severity Reaction Status Date / Time No Known Allergies Allergy Verified 02/01/21 16:21 [No Known Allergies*] Home Medications Medication Instructions Recorded Confirmed Last Taken Type aspirin 81 mg tablet 81 mg PO DAILY 09/27/20 02/01/21 09/26/20 18:00 History lisinopril 20 mg tablet 20 mg PO DAILY 10/09/20 02/01/21 Unknown History [id number]-jjcbmnusp 3.5 ml OTIC (EARS) 10/09/20 11/19/20 Unknown History mg/mL-10,000 unit/mL-1 % ear solution Exam Exam Date and Time: February 05, 2021 0851 Pertinent Lab Results Pertinent Lab Results: Laboratory Tests 11/24/20 01/28/21 07:36 09:10 WBC 5.2 Hgb 9.8 L Hct 30.0 L Plt Count 241 D Sodium 140 Potassium 4.4 Chloride 112 H Carbon Dioxide 16 L BUN 21 H Creatinine 1.34 Narrative Narrative: EKG 10/29/20 SB @ 56 US carotid duplex BI 08/2020 IMPRESSION: 1. RIGHT: Minimal, non-hemodynamically significant stenosis of the proximal right internal carotid artery corresponding to a 0-49% stenosis by velocity criteria. ? 2. LEFT: Moderate, hemodynamically significant stenosis of the proximal left internal carotid artery corresponding to a 50-79% stenosis by velocity criteria. ? 3. There is no change in the category severity of disease when compared to the previous study dated March 05, 2019. ? 4. Elevated velocity within the left external carotid artery consistent with moderate, hemodynamically significant stenosis. This is new from the 2019 comparison. Assessment and Plan Assessment Anesthesia Assessment: Chart Reviewed Final Anesthetic Review Family History of Problems with Anesthesia: No History of Problems with Anesthesia: No Documented by User: Meli Pierce MD 02/08/21 13:25 [facility] Past Medical History Medical History Anemia Carotid artery occlusion Coronary artery disease High cholesterol HTN (hypertension) Kidney stone Surgical History Surgical History (Updated 02/01/21 @ 16:21 by Latrice Babcock, MARIO) History of CEA (carotid endarterectomy) History of cystoscopy History of lithotripsy Hx of CABG Social History Social History Household Members: None Housing: House Do you presently have visiting nurse or other home services: No Alcohol intake: current Alcohol intake frequency: does not drink Alcohol type: beer Patient Tobacco Use Status: Current someday Tobacco user Tobacco use type: Cigarette Cigarettes Per Day: 5 Second Hand Smoke Exposure: No Use of substances other than those prescribed or required for medical reasons: No Are you DNR?: No Advance Directives: No Advance Directives Information Provided: Yes Advance Directives on File: No service: Yes Current occupational status: retired Meds Allergies Allergy/AdvReac Type Severity Reaction Status Date / Time No Known Allergies Allergy Verified 02/01/21 16:21 [No Known Allergies*] Home Medications Medication Instructions Recorded Confirmed Last Taken Type aspirin 81 mg tablet 81 mg PO DAILY 09/27/20 02/01/21 09/26/20 18:00 History lisinopril 20 mg tablet 20 mg PO DAILY 10/09/20 02/01/21 Unknown History jmzhuhfq-xpwvuoqbf-gohivrajv 3.5 ml OTIC (EARS) 10/09/20 11/19/20 Unknown History mg/mL-10,000 unit/mL-1 % ear solution Exam Airway Mallampati Class: II (Missing multiple teeth) TM Dist: >3cm Neck ROM: Full Heart: rrr Lungs: cta Assessment and Plan Assessment Anesthesia Assessment: Anesthesia Plan Discussed and Chart Reviewed Final Anesthetic Review NPO: Yes ASA Class: III Final Preanesthetic Review: No Changes in Pt Med Stat, Meds/Allgs Chart Reviewed and Consent Obtained/Reviewed Patient Risk: Intermediate Procedure Risk: Intermediate Anesthetic Plan Anesthetic Plan: MAC: Disposition: Standard PACU
[2021-02-08 12:55] VITALS: BMI 21.9
[2021-02-08 13:23] VITALS: BP 146/65; PULSE 73; RESP 16; TEMP 36.2; O2SAT 99
[2021-02-08] MEDS: Lactated Ringers 1,000 ML 100 ML IVCONT (13:24)
[2021-02-08 14:27] VITALS: BP 123/54; PULSE 59; RESP 16; TEMP 36.2; O2SAT 100
--- NOTE | 2021-02-08 14:38 | PM.OP ---
Brief Operative Note Date of Service: 02/08/21 Pre-op diagnosis: Anemia Post-op diagnosis: other (R/O Celiac disease, Hiatal hernia, Diverticulosis) Procedure: EGD with biopsy, Colonoscopy to the cecum Surgeon: Stone Cross Anesthesia: MAC Was an Physician Internist used for this Procedure?: No Estimated blood loss (mL): 3.0 Pathology: other (A. Descending duodenum) Condition: stable Disposition: PACU
[2021-02-08 14:46] VITALS: BP 121/60; PULSE 68; RESP 18; TEMP 36.2; O2SAT 99
--- NOTE | 2021-02-08 20:34 | OP_ITS ---
SURGEON: Stone Cross MD INDICATIONS: The patient presents for evaluation of anemia. Full consent has been obtained from him for this, including risks of bleeding and perforation. PREOPERATIVE DIAGNOSIS: POSTOPERATIVE DIAGNOSIS: PROCEDURE PERFORMED: Esophagogastroduodenoscopy with biopsies, and colonoscopy to the cecum. ESTIMATED BLOOD LOSS: COMPLICATIONS: ANESTHESIA: Monitored anesthesia care. ASSISTANTS: SPECIMENS: PREOPERATIVE DIAGNOSES: Anemia. POSTOPERATIVE DIAGNOSES: Anemia, hiatal hernia, rule out celiac disease, diverticulosis, and internal hemorrhoids. DESCRIPTION OF PROCEDURE: The patient was placed in the left lateral decubitus position. The Olympus video gastroscope was passed in the posterior oropharynx and upper esophagus under direct vision. The scope was passed slowly into the distal esophagus. The gastroesophageal junction appeared at 35 cm. This appeared normal without any sign of esophagitis nor Correa's esophagus. The scope entered into the stomach. There was a small to moderate-sized hiatal hernia. The hiatal hernia mucosa appeared normal. The scope was advanced to pylorus and duodenum was cannulated to the descending portion. The duodenum including the bulb appeared normal, although the mucosa of the duodenum did appear to be somewhat pigmented with a brownish color. Biopsies were obtained from the second and third portions of duodenum. The scope was withdrawn back into the stomach. The gastric antrum and body appeared normal with good peristalsis. The scope was retroflexed visualizing the proximal stomach carefully, which appeared normal, without any sign of mass or ulceration. The scope was straightened out and withdrawn back into the esophagus. The gastroesophageal junction appeared normal at 35 cm. Proximal to this, the esophageal mucosa appeared normal. The scope was withdrawn from the patient. He was turned around for colonoscopy. The digital rectal exam revealed no abnormalities. The Olympus video pediatric colonoscope was entered into the rectum and advanced easily to the cecum. Once in the cecum, I did identify normal-appearing cecal pouch with appendiceal orifice and a normal-appearing ileocecal valve. There was transillumination of light deep in the right lower quadrant. The entire cecum and ileocecal valve appeared normal. The scope was then slowly withdrawn assessing all mucosal surfaces carefully. Preparation was excellent. I did not visualize any sign of polyps, colitis, nor angiodysplasia. There was a moderate amount of sigmoid diverticulosis. In the rectum, scope was retroflexed visualizing internal hemorrhoids, but no other pathology. The rectal mucosa appeared normal. The scope was straightened out and withdrawn from the patient. He tolerated the procedure well and was returned to recovery area in stable condition. IMPRESSION: 1. Hiatal hernia. 2. Rule out celiac disease. 3. Diverticulosis. 4. Internal hemorrhoids. PLAN: The results of the biopsies will be checked. Given today's negative colonoscopy, I do not think he will need any further screening colonoscopies in the future. In regard to his anemia, his most recent laboratories revealed a hemoglobin of 9.8 with a normal MCV. His ferritin was actually elevated at 696 and his iron was 79 with an iron saturation of 39%. Given today's negative studies and those lab results, his anemia does not seem to be related to iron deficiency or GI blood loss. As such, I did advise him that it might be reasonable for him to speak with his other physicians regarding a Hematology referral. Given the results of his iron studies without iron deficiency, I do not think he requires a small bowel video capsule study. He was advised to resume his aspirin by tomorrow. MD VISHNU Aranda/MAGGIE / [id number] MTDD
== END 2021-02-08 15:49 | disposition home or self-care (01) ==
PROVIDERS: PCP Internal Medicine; Visit Provider Internal Medicine
PROC: (CPT 45378; principal; 2021-02-08 14:00)
DX: D64.9 Anemia, unspecified (principal); K57.30 Diverticulosis of large intestine without perforation or abscess without bleeding; K64.8 Other hemorrhoids; K44.9 Diaphragmatic hernia without obstruction or gangrene; I10 Essential (primary) hypertension; I25.10 Atherosclerotic heart disease of native coronary artery without angina pectoris; Z95.1 Presence of aortocoronary bypass graft; E78.00 Pure hypercholesterolemia, unspecified; Z79.899 Other long term (current) drug therapy; Z79.82 Long term (current) use of aspirin; Z87.442 Personal history of urinary calculi; F17.210 Nicotine dependence, cigarettes, uncomplicated
CPT/HCPCS: 45378; 43239; 88305

== ENCOUNTER 2021-03-01 07:05 | Outpatient (REF) | payer MEDICARE, SELFPAY ==
[2021-03-01 07:26] LABS: MANUAL DIFF FLAG NO
[2021-03-01 08:10] LABS: Basophils Percent Auto 0.4 % (0-2); Eosinophils Absolute Auto 0.1 X10*3/uL (0.0-0.4); Eosinophils Percent Auto 2.3 % (0-4); Hematocrit 31.1 % (42.0-52.0); Imm Gran Abs Auto 0.01 X10*3/uL (0.00-0.03); Imm Gran Pct Auto 0.2 % (0.0-0.4); Lymphocytes Absolute Auto 1.4 X10*3/uL (1.2-4.9); Lymphocytes Percent Auto 29.6 % (20-40); Mean Corpuscular HGB Conc 32.2 g/dl (31.0-36.0); Mean Corpuscular Hemoglobin 32.1 pg (27.0-33.0); Mean Corpuscular Volume 99.7 fL (80.0-98.0); Mean Platelet Volume 10.7 fL (9.4-12.4); Monocytes Absolute Auto 0.4 X10*3/uL (0.1-1.2); Monocytes Percent Auto 9.2 % (2-11); Neutrophils Absolute Auto 2.8 x10*3/uL (2.0-8.3); Neutrophils Percent Auto 58.3 % (45-73); Platelet Count 222 X10*3/uL (160-400); Red Blood Count 3.12 X10*6/uL (4.60-5.80); Red Cell Distribution Width 14.8 % (11.0-16.0); White Blood Count 4.8 X10*3/uL (4.8-10.8)
[2021-03-01 08:15] LABS: Appearance Urine CLEAR; Color Urine YELLOW; Glucose Urine UA NEG (NEG); Leukocyte Esterase Urine NEG (NEG); Nitrite Urine NEG (NEG); Urine Blood NEG (NEG); Urine Ketones NEG (NEG); Urine Protein 1+ MG/DL (NEG-TRACE)
[2021-03-01 08:29] LABS: Bacteria Urine TRACE /LPF; RBC Urine 0-2 /HPF (0); Squamous Epithelial Cell Urine TRACE /LPF
[2021-03-01 08:30] LABS: Mucus Urine 1+ /LPF
[2021-03-01 08:35] LABS: Alanine Aminotransferase 43 U/L (0-40); Albumin Level 3.7 g/dL (3.5-5.0); Alkaline Phosphatase 122 U/L (39-117); Anion Gap 11 (12-20); Aspartate Amino Transferase 34 U/L (5-37); Bilirubin Total 0.2 mg/dL (0.0-1.0); Blood Urea Nitrogen 29 mg/dL (9-16); Calcium 8.9 mg/dL (8.4-10.2); Carbon Dioxide 21 mmol/L (22-29); Chloride 111 mmol/L (96-108); Cholesterol 113 mg/dL; Estimated Glomerular Filt Rate 51; Glucose Fasting 107 mg/dL (60-99); HDL Cholesterol 35 mg/dL; LDL Cholesterol Calculated 64 mg/dl; Potassium 4.3 mmol/L (3.3-5.1); Sodium 139 mmol/L (135-145); Total Protein 7.3 g/dL (6.5-8.0); Triglycerides 70 mg/dL
== END 2021-03-01 07:06 | disposition home or self-care (01) ==
LOC: HO.LAB 07:05
PROVIDERS: PCP Internal Medicine; Visit Provider Internal Medicine
DX: J44.9 Chronic obstructive pulmonary disease, unspecified (principal); I25.10 Atherosclerotic heart disease of native coronary artery without angina pectoris; I12.9 Hypertensive chronic kidney disease with stage 1 through stage 4 chronic kidney disease, or unspecified chronic kidney disease; D63.1 Anemia in chronic kidney disease; N18.9 Chronic kidney disease, unspecified
CPT/HCPCS: 36415; 80053; 80061; 81001; 85025

== ENCOUNTER → 2021-05-07 09:38 | Outpatient (BNVA) | payer OTHER, SELFPAY | PROVIDERS: PCP Internal Medicine; Visit Provider Internal Medicine Pulmonary Disease | DX: J44.9 Chronic obstructive pulmonary disease, unspecified (principal); R91.8 Other nonspecific abnormal finding of lung field | CPT/HCPCS: 99202 ==

== ENCOUNTER 2021-05-13 08:03 | Outpatient (REF) | payer OTHER, SELFPAY ==
--- NOTE | 2021-05-13 17:40 | PFT_ITS ---
INDICATION: Dyspnea. COMMENTS: Patient was unable to successfully complete the maneuvers despite different coaching methods. The patient was not able to complete this study. SPIROMETRY: The FEV1 to FVC 84% with an FEV1 of 2.07 L, which is 71% predicted and an FVC of 2.46 L. which is 61% predicted. Bronchodilator not used. LUNG VOLUMES: Expiratory reserve volume was noted to be 75% predicted. Diffusion capacity could not be collected. INTERPRETATION: This is a suboptimal study. The patient was unable to follow the instructions clearly. Based on the spirometry, there appears to be a restrictive ventilatory defect, moderate in severity. Clinical correlation warranted. MD MYLES Ro/MAGGIE / [id number] MTDD
== END 2021-05-13 08:04 | disposition home or self-care (01) ==
LOC: HO.RESP 08:03
PROVIDERS: Visit Provider Internal Medicine Pulmonary Disease
DX: Z13.89 Encounter for screening for other disorder (principal)

== ENCOUNTER 2021-05-26 11:48 | Day surgery (SDC) | payer OTHER, SELFPAY ==
--- NOTE | ~2021-05-26 | XR_ITS ---
EXAMINATION: XR CHEST CLINICAL INFORMATION: Status post right lung biopsy COMPARISON: April 09, 2010 TECHNIQUE: AP portable view of the chest was obtained. FINDINGS: There is a small right apical pneumothorax present status post right lung core biopsy. No pleural effusion is appreciated. Right upper lobe mass again seen. Heart normal size. No evidence of pulmonary edema. Status post median sternotomy. Bullous changes seen right lung apex. XR/XR chest 1V IMPRESSION: Small right apical pneumothorax status post right lung biopsy.
--- NOTE | ~2021-05-26 | XR_ITS ---
EXAMINATION: XR CHEST CLINICAL INFORMATION: 2 hour delayed post biopsy. COMPARISON: Chest radiograph done earlier today at 3:43 PM. TECHNIQUE: AP view of the chest was obtained. FINDINGS: A right pneumothorax is increase in size now measuring up to 2.5 cm in maximum thickness from approximately 0.6 cm on prior. A right upper lobe mass is again noted, best appreciated on prior CT chest. Stable cardiomediastinal silhouette with fractured superior sternotomy wire and mediastinal clips. No new focal airspace opacities. Similar interstitial coarsening and thickening. No acute osseous abnormalities. XR/XR chest 1V IMPRESSION: Increased size of the right pneumothorax. This result was discussed with Beatrice Kemp at 05/26/2021 5:19 PM and it was ascertained that the content of the report was understood at the time of direct communication.
--- NOTE | ~2021-05-26 | CT_ITS ---
PROCEDURE: CT GUIDED BIOPSY, LUNG CLINICAL INFORMATION: Right lung mass. COMPARISON: 04/19/2021 TECHNIQUE: CT fluoroscopic-guided right upper lobe core biopsy. This CT examination was performed using dose optimization techniques as appropriate, variously including the following: *Automated exposure control *Adjustment of mA and/or kV according to patient size (this includes techniques or standardized protocols for targeted exams where dose is matched to indication/reason for exam; i.e. extremities or head) *Use of iterative reconstruction technique DLP: 377 mGy-cm FINDINGS: Informed consent was obtained from the patient prior to the procedure. During this process, the procedure and potential alternatives were explained, along with the intended outcome and benefits. The risks of the procedure, as well as the risk of not doing the procedure, were discussed. The patient was given the opportunity to ask questions regarding the procedure and appeared competent to make medical decisions. A signed consent form which documents this discussion was placed in the medical record. Preliminary CT scan demonstrates severe changes of paraseptal emphysema with small centrilobular component. There is noted to be a right upper lobe mass. Using sterile technique and CT fluoroscopic guidance, a 17-gauge guiding needle was directed to the mass and 3 18-gauge core biopsies were obtained. Preliminary cytology result was of an adequate specimen. Post right lung biopsy, there is noted to be a small right pneumothorax but which is not large enough to require chest tube at this time. Will continue to monitor the pneumothorax. CT/CT biopsy lung RT IMPRESSION: Successful right upper lobe biopsy with small postprocedure pneumothorax.
[2021-05-26 12:21] LABS: MANUAL DIFF FLAG NO
[2021-05-26 12:26] VITALS: BP 154/68; PULSE 72; RESP 16; TEMP 36.9; O2SAT 97; BMI 22.1
[2021-05-26 12:27] LABS: Basophils Percent Auto 0.4 % (0-2); Eosinophils Absolute Auto 0.1 X10*3/uL (0.0-0.4); Eosinophils Percent Auto 1.3 % (0-4); Hemoglobin 10.1 g/dl (14.0-18.0); Imm Gran Abs Auto 0.01 X10*3/uL (0.00-0.03); Imm Gran Pct Auto 0.2 % (0.0-0.4); Lymphocytes Absolute Auto 1.3 X10*3/uL (1.2-4.9); Lymphocytes Percent Auto 24.1 % (20-40); Mean Corpuscular HGB Conc 32.6 g/dl (31.0-36.0); Mean Corpuscular Hemoglobin 32.5 pg (27.0-33.0); Mean Corpuscular Volume 99.7 fL (80.0-98.0); Mean Platelet Volume 10.6 fL (9.4-12.4); Monocytes Absolute Auto 0.4 X10*3/uL (0.1-1.2); Monocytes Percent Auto 8.2 % (2-11); Neutrophils Absolute Auto 3.5 x10*3/uL (2.0-8.3); Neutrophils Percent Auto 65.8 % (45-73); Platelet Count 225 X10*3/uL (160-400); Red Blood Count 3.11 X10*6/uL (4.60-5.80); Red Cell Distribution Width 14.3 % (11.0-16.0); White Blood Count 5.3 X10*3/uL (4.8-10.8)
[2021-05-26 12:35] LABS: INTERNATIONAL NORM RATIO 1.1 (0.9-1.1); Prothrombin Time 12.2 SEC (9.9-13.0)
[2021-05-26 12:37] LABS: Partial Thromboplastin Time 35.3 SEC (24.1-38.0)
[2021-05-26 15:45] VITALS: BP 137/71; PULSE 70; RESP 16; TEMP 37.1; O2SAT 97
[2021-05-26 16:00] VITALS: BP 121/58; PULSE 66; RESP 16; O2SAT 97
[2021-05-26] MEDS: Lidocaine HCl 1 % MPF 5 ML VIAL 10 ML INFILTRATI (16:09)
[2021-05-26 16:15] VITALS: BP 133/64; PULSE 77; RESP 16; O2SAT 98
== END 2021-05-26 17:57 | disposition home or self-care (01) ==
LOC: HO.SSS 11:50
PROVIDERS: PCP Internal Medicine; Visit Provider Radiology Diagnostic Radiology
DX: C34.11 Malignant neoplasm of upper lobe, right bronchus or lung (principal); R42 Dizziness and giddiness; J44.9 Chronic obstructive pulmonary disease, unspecified; I25.10 Atherosclerotic heart disease of native coronary artery without angina pectoris; Z95.1 Presence of aortocoronary bypass graft; I10 Essential (primary) hypertension; D64.9 Anemia, unspecified; E78.00 Pure hypercholesterolemia, unspecified; F17.210 Nicotine dependence, cigarettes, uncomplicated
CPT/HCPCS: 32408; 36415; 71045; 85025; 85610; 85730; 88305; 88333; 88341; 88342; 99152; 99153; J2250; J3010

== ENCOUNTER 2021-05-27 07:56 | Outpatient (REF) | payer OTHER, SELFPAY ==
--- NOTE | ~2021-05-27 | XR_ITS ---
EXAMINATION: XR CHEST CLINICAL INFORMATION: Right pneumothorax status post right lung biopsy yesterday. COMPARISON: May 26, 2021 and April 19, 2021 TECHNIQUE: PA upright view of the chest was obtained. FINDINGS: The right-sided pneumothorax has increased and is moderate in size. Changes of COPD evident. Right lung mass present. Heart normal size. No evidence of pulmonary edema. Status post median sternotomy. No significant pleural effusion is seen. Patient does have some discomfort in the right chest with breathing at this point but is oxygenating with a oxygen saturation of 97%. A chest tube will be placed with patient being admitted. Dr. Navarro notified of plan. XR/XR chest 1V IMPRESSION: Increasing size of right pneumothorax with chest tube to be placed.
== END 2021-05-27 07:57 | disposition home or self-care (01) ==
LOC: HO.XRAY 07:56
PROVIDERS: PCP Physician Assistant; Visit Provider Radiology Diagnostic Radiology
DX: J93.9 Pneumothorax, unspecified (principal)
CPT/HCPCS: 71045

== ENCOUNTER 2021-05-27 09:06 | Observation (INO) | payer OTHER, SELFPAY ==
[2021-05-27] VITALS (24 sets, daily range): BP systolic 109–168; BP diastolic 56–82; PULSE 67–84; RESP 12–21; TEMP 36.4–36.6; O2SAT 95–100; BMI 22.1
--- NOTE | ~2021-05-27 | XR_ITS ---
EXAMINATION: XR CHEST CLINICAL INFORMATION: Pigtail insertion COMPARISON: May 27, 2021 and May 26, 2021 TECHNIQUE: AP portable view of the chest was obtained. FINDINGS: Since previous study a right-sided pigtail catheter has been placed with tip near the right apex. There has been reexpansion of the right lung with small apical pneumothorax remaining. There are bilateral regions of chronic interstitial disease. Right lung mass again seen. No significant pleural effusion noted. Heart normal size. No evidence of pulmonary edema. Status post median sternotomy and CABG. XR/XR chest 1V IMPRESSION: Insertion of right chest tube with small residual right apical pneumothorax.
--- NOTE | ~2021-05-27 | US_ITS ---
EXAMINATION: US RETROPERITONEAL LIMITED (RENAL ONLY) CLINICAL INFORMATION: Acute kidney injury. COMPARISON: Renal ultrasound 01/20/2021 TECHNIQUE: Real-time imaging of the kidneys. FINDINGS: RIGHT KIDNEY: 12.1 x 4.9 x 4.2 cm (SAG x AP x TRV). The kidney is normal in size, contour, and echogenicity. Renal cortical thickness is normal. No calculi or focal parenchymal lesions. No hydronephrosis. LEFT KIDNEY: 9.6 x 5.7 x 4.1 cm (SAG x AP x TRV). The kidney is normal in size, contour, and echogenicity. Renal cortical thickness is normal. No renal calculi or hydronephrosis. Benign-appearing renal cysts measuring up to 1.5 cm, no routine imaging follow-up recommended. US/US renal BI IMPRESSION: No hydronephrosis or nephrolithiasis.
--- NOTE | ~2021-05-27 | XR_ITS ---
EXAMINATION: XR CHEST CLINICAL INFORMATION: Chest tube removed. COMPARISON: Chest 05/28/2021 TECHNIQUE: Frontal view of the chest was obtained. FINDINGS: The chest tube has been removed. No visible pneumothorax The lungs are expanded with increased interstitial markings in both lungs likely chronic. There is a nodular density seen in the right lung apex similar to previous CT chest 04/19/2021. Heart size and pulmonary vascularity is normal. There is a right lateral chest wall subcutaneous emphysema There are median sternotomy sutures and mediastinal kory from previous intervention. Mild levoscoliosis of dorsal spine seen. No lytic process. XR/XR chest 1V IMPRESSION: Status post removal of right chest tube. There is no pneumothorax seen. There is chronic bilateral interstitial lung changes, stable.
--- NOTE | ~2021-05-27 | XR_ITS ---
EXAMINATION: XR CHEST CLINICAL INFORMATION: Followup pneumothorax. COMPARISON: 05/27/2021 and 05/26/2021 TECHNIQUE: AP portable view of the chest was obtained. FINDINGS: There has been improvement in the tiny right apical pneumothorax with minimal pneumothorax remaining. Bilateral interstitial disease is present which appears be chronic. Known right upper lobe mass is present. Patient has developed some subcutaneous emphysema about the right chest wall. Heart normal size. No evidence of pulmonary edema. No pleural effusion. Status post median sternotomy and CABG. XR/XR chest 1V IMPRESSION: Tiny minimal right pneumothorax which is improved. Development of right chest subcutaneous emphysema.
--- NOTE | 2021-05-27 09:40 | ECG_ITS ---
Test Reason : pre procedure Blood Pressure : / mmHG Vent. Rate : 064 BPM Atrial Rate : 064 BPM P-R Int : 204 ms QRS Dur : 092 ms QT Int : 412 ms P-R-T Axes : 081 027 098 degrees QTc Int : 425 ms Normal sinus rhythm Nonspecific ST and T wave abnormality Abnormal ECG When compared with ECG of 28-NOV-2018 12:30, T wave inversion no longer evident in Anterolateral leads Referred By: Cecelia Ellis Electronically Signed By:RODRI COLEMAN MD
--- NOTE | 2021-05-27 09:47 | ED.GENADULT ---
HPI - General Adult General Chief complaint: General Medical Stated complaint: breathing issues Time Seen by Provider: 05/27/21 09:23 Source: patient Mode of arrival: ambulatory Limitations: no limitations History of Present Illness HPI narrative: Patient was sent to the emergency room from Radiology. This morning I spoke with Dr. Barron, yesterday patient had a lung biopsy on the right side, patient being worked up for a likely malignant lung mass. Patient has no history of cancer in the past, patient does have history of COPD. Patient reports feeling well other than occasional cough, oxygenation on room air is 97%. Related Data Home Medications Medication Instructions Recorded Confirmed aspirin 81 mg tablet 81 mg PO DAILY 09/27/20 02/01/21 lisinopril 20 mg tablet 20 mg PO DAILY 10/09/20 02/01/21 [id number] 3.5 ml OTIC (EARS) 10/09/20 11/19/20 mg/mL-10,000 unit/mL-1 % ear solution Previous Rx's Medication Instructions Recorded atorvastatin 80 mg tablet 80 mg PO BEDTIME 90 Days #90 tab 05/04/20 metoprolol succinate 100 mg 100 mg PO DAILY #90 tab 07/15/20 tablet,extended release 24 hr amlodipine 10 mg tablet 10 mg PO DAILY #90 tab 07/30/20 nicotine 7 mg/24 hr daily 7 mg TRANSDERMAL DAILY 30 Days ea 09/28/20 transdermal patch ezetimibe 10 mg tablet (Zetia) 10 mg PO DAILY 90 Days #90 tab 11/03/20 phenazopyridine 100 mg tablet 100 mg PO TID PRN 4 Days #12 tab 11/30/20 (Pyridium) tamsulosin 0.4 mg capsule 0.4 mg PO BEDTIME 14 Days #14 cap 11/30/20 tramadol 50 mg tablet 50 mg PO Q6H PRN #14 tab 11/30/20 allopurinol 100 mg tablet 100 mg PO DAILY 90 Days #90 tab 12/16/20 pyridoxine (vitamin B6) 100 mg 100 mg PO DAILY 90 Days #90 tab 12/16/20 tablet hydralazine 50 mg tablet 25 mg PO BID 90 Days #90 tab 05/12/21 Allergies Allergy/AdvReac Type Severity Reaction Status Date / Time No Known Allergies Allergy Verified 05/07/21 10:06 [No Known Allergies*] Review of Systems Review of Systems: Constitutional : No Weight loss, No Fever, No Chills, No Night Sweats, No Fatigue, No Malaise ENT/Mouth : No Hearing loss, No Ear Pain, No Nasal Congestion, No Sinus Pain, No Hoarseness, No sore throat, No Rhinorrhea, No Swallowing Difficulty Eyes: No Eye Pain, No Swelling, No Redness, No Foreign Body, No Discharge, No Vision Changes Cardiovascular : No Chest Pain, No SOB, No Dyspnea on Exertion, No Orthopnea, No Edema, No Palpitations Respiratory : Complaining of occasional Cough, No Sputum, No Wheezing, No Smoke Exposure, No Dyspnea Gastrointestinal : No Nausea, No Vomiting, No Diarrhea, No Constipation, No abdominal Pain, No Hematochezia, No Melena Genitourinary : no irregular bleeding, No Dysuria, No Urinary Frequency, No Hematuria, No Urinary Incontinence, No Urgency, No Flank Pain, No Urinary Flow Changes, No Hesitancy Musculoskeletal : No joint pain, No Myalgias, No Joint Swelling Skin : No Skin Lesions, No rash Neuro : No Weakness, No Numbness, No Paresthesias, No Loss of Consciousness, No Dizziness, No Headache Psych : No Anxiety/Panic, No Depression, No SI/HI/AH/VH, No Social Issues, Heme/Lymph: No Bruising, No Bleeding,No Lymphadenopathy Endocrine : No Polyuria, No Polydipsia, No Temperature Intolerance [facility] Past Medical History Medical History Anemia Carotid artery occlusion Coronary artery disease High cholesterol HTN (hypertension) Kidney stone Surgical History History of CEA (carotid endarterectomy) History of cystoscopy History of lithotripsy Hx of CABG Social History Social History Household Members: None Housing: House Do you presently have visiting nurse or other home services: No Alcohol intake: never Patient Tobacco Use Status: Current everyday Tobacco user Tobacco use type: Cigarette Cigarettes Per Day: 5 Second Hand Smoke Exposure: No Use of substances other than those prescribed or required for medical reasons: No Advance Directives: No Advance Directives Information Provided: No service: Yes Current occupational status: retired Physical Exam ED Vital Signs: Vital Signs - 24 hr 05/27/21 09:12 05/27/21 09:42 05/27/21 11:07 Temperature 98 F Pulse Rate 67 70 67 Respiratory Rate 19 13 20 Blood Pressure 128/59 L 133/64 109/60 Pulse Oximetry 95 100 98 05/27/21 11:28 05/27/21 11:35 05/27/21 11:37 Temperature Pulse Rate 69 67 80 Respiratory Rate 21 H 16 14 Blood Pressure 122/56 L 148/67 H 157/82 H Pulse Oximetry 99 100 99 05/27/21 11:38 05/27/21 11:41 05/27/21 11:43 Temperature Pulse Rate 83 84 82 Respiratory Rate 19 17 14 Blood Pressure 168/75 H 161/72 H 150/69 H Pulse Oximetry 99 99 98 05/27/21 11:48 05/27/21 11:52 05/27/21 11:55 Temperature Pulse Rate 78 77 78 Respiratory Rate 15 15 19 Blood Pressure 145/69 H 138/65 141/68 H Pulse Oximetry 97 98 99 05/27/21 12:01 05/27/21 12:05 05/27/21 12:06 Temperature Pulse Rate 79 79 78 Respiratory Rate 17 15 14 Blood Pressure 145/74 H 145/74 H 146/71 H Pulse Oximetry 99 99 97 05/27/21 12:10 05/27/21 12:29 05/27/21 12:44 Temperature Pulse Rate 73 69 73 Respiratory Rate 16 12 17 Blood Pressure 143/68 H 128/66 112/56 L Pulse Oximetry 99 97 97 05/27/21 13:37 Temperature 97.6 F Pulse Rate 72 Respiratory Rate 16 Blood Pressure 126/65 Pulse Oximetry 99 BMI result Body Mass Index 22.1 Const Other: Appearance: Alert. Oriented X3. No acute distress. Well-appearing Eyes: Pupils equal, round and reactive to light. ENT: Pharynx normal. Neck: Normal inspection. Neck supple. No lymph nodes noted. No crepitus CVS: Normal heart rate and rhythm. Pulses normal. Normal S1 and S2 Respiratory: No respiratory distress. Breath sounds bilaterally, no wheezing Abdomen: Soft and nontender. No rigidity. No distention. Skin: Skin warm and dry. Normal skin color. Normal skin turgor. Extremities: No lower extremity edema. No Lacerations. No Rash Neuro: Oriented X 3. No motor deficit. No sensory deficit. Moving all extermities. No slurred speech. Course Course Course Narrative: I discussed the x-ray with Dr. Navarro. I will go ahead and insert a pigtail rather than a chest tube. I discussed the procedure with the patient. I discussed with the patient we can have local anesthesia/lidocaine for the procedure. Patient states that he would prefer to be sedated for the procedure. I discussed with the patient that we will use lidocaine. Patient agrees with plan. Consent signed, now in patient's chart Patient received postprocedure 1 mg of Dilaudid. Patient received ketamine for sedation. Patient tolerated well the procedure, chest tube/pigtail 14F in place. Patient being admitted Procedures Chest Tube Chest Tube 1: Chest Tube Location: right and anterior axillary line Size of Tube (cm): 14 Chest Tube Prep: Yes betadine prep and sterile drapes applied Local Anesthetic: lidocaine 1% Amount of anesthesia used (mL): 5 Incision Made With: #10 blade Post Procedure: sutured to skin and sterile dressing applied Post Procedure CXR?: Yes Patient Tolerated Procedure: Yes Medical Decision Making Lab Data Result diagrams: 05/27/21 10:04 05/27/21 10:04 Labs: Lab Results 05/27/21 05/27/21 05/27/21 Range/Units 10:04 10:04 10:04 WBC 5.8 (4.8-10.8) X10*3/uL RBC 3.26 L (4.60-5.80) X10*6/uL Hgb 10.7 L (14.0-18.0) g/dl Hct 32.1 L (42.0-52.0) % MCV 98.5 H (80.0-98.0) fL MCH 32.8 (27.0-33.0) pg MCHC 33.3 (31.0-36.0) g/dl RDW 14.5 (11.0-16.0) % Plt Count 232 (160-400) X10*3/uL MPV 10.7 (9.4-12.4) fL Immature Gran % (Auto) 0.3 (0.0-0.4) % Neut % (Auto) 70.1 (45-73) % Lymph % (Auto) 20.3 (20-40) % Wallace % (Auto) 7.4 (2-11) % Eos % (Auto) 1.7 (0-4) % Baso % (Auto) 0.2 (0-2) % Lymph # (Auto) 1.2 (1.2-4.9) X10*3/uL Wallace # (Auto) 0.4 (0.1-1.2) X10*3/uL Eos # (Auto) 0.1 (0.0-0.4) X10*3/uL Baso # (Auto) 0.0 (0.0-0.2) X10*3/uL Abs Immat Gran (auto) 0.02 (0.00-0.03) X10*3/uL Absolute Neuts (auto) 4.1 (2.0-8.3) x10*3/uL Absolute Nucleated RBC 0.000 (0.0-0.012) X10*3/uL Nucleated RBC % (auto) 0.0 (0.0-0.2) /100WBC PT 12.5 (9.9-13.0) SEC INR 1.1 (0.9-1.1) Sodium 140 (135-145) mmol/L Potassium 4.4 (3.3-5.1) mmol/L Chloride 112 H (96-108) mmol/L Carbon Dioxide 19 L (22-29) mmol/L Anion Gap 13 (12-20) BUN 44 H (9-16) mg/dL Creatinine 1.96 H (0.5-1.4) mg/dL Estim Creat Clear Calc 30.8 Estimated GFR 33 Random Glucose 108 (60-115) mg/dL Calcium 9.5 D (8.4-10.2) mg/dL Total Bilirubin 0.3 (0.0-1.0) mg/dL Direct Bilirubin 0.2 (0.0-0.5) mg/dL AST 39 H (5-37) U/L ALT 46 H (0-40) U/L Alkaline Phosphatase 122 H (39-117) U/L Total Protein 8.4 H (6.5-8.0) g/dL Albumin 4.2 (3.5-5.0) g/dL COVID-19 (TANISHA) (Negative) COVID-19 Clin Com 05/27/21 Range/Units 10:04 WBC (4.8-10.8) X10*3/uL RBC (4.60-5.80) X10*6/uL Hgb (14.0-18.0) g/dl Hct (42.0-52.0) % MCV (80.0-98.0) fL MCH (27.0-33.0) pg MCHC (31.0-36.0) g/dl RDW (11.0-16.0) % Plt Count (160-400) X10*3/uL MPV (9.4-12.4) fL Immature Gran % (Auto) (0.0-0.4) % Neut % (Auto) (45-73) % Lymph % (Auto) (20-40) % Wallace % (Auto) (2-11) % Eos % (Auto) (0-4) % Baso % (Auto) (0-2) % Lymph # (Auto) (1.2-4.9) X10*3/uL Wallace # (Auto) (0.1-1.2) X10*3/uL Eos # (Auto) (0.0-0.4) X10*3/uL Baso # (Auto) (0.0-0.2) X10*3/uL Abs Immat Gran (auto) (0.00-0.03) X10*3/uL Absolute Neuts (auto) (2.0-8.3) x10*3/uL Absolute Nucleated RBC (0.0-0.012) X10*3/uL Nucleated RBC % (auto) (0.0-0.2) /100WBC PT (9.9-13.0) SEC INR (0.9-1.1) Sodium (135-145) mmol/L Potassium (3.3-5.1) mmol/L Chloride (96-108) mmol/L Carbon Dioxide (22-29) mmol/L Anion Gap (12-20) BUN (9-16) mg/dL Creatinine (0.5-1.4) mg/dL Estim Creat Clear Calc Estimated GFR Random Glucose (60-115) mg/dL Calcium (8.4-10.2) mg/dL Total Bilirubin (0.0-1.0) mg/dL Direct Bilirubin (0.0-0.5) mg/dL AST (5-37) U/L ALT (0-40) U/L Alkaline Phosphatase (39-117) U/L Total Protein (6.5-8.0) g/dL Albumin (3.5-5.0) g/dL COVID-19 (TANISHA) Negative (Negative) COVID-19 Clin Com See Note Imaging Data Chest x-ray: Radiologist's impression: FINDINGS: Since previous study a right-sided pigtail catheter has been placed with tip near the right apex. There has been reexpansion of the right lung with small apical pneumothorax remaining. There are bilateral regions of chronic interstitial disease. Right lung mass again seen. No significant pleural effusion noted. Heart normal size. No evidence of pulmonary edema. Status post median sternotomy and CABG. XR/XR chest 1V IMPRESSION: Insertion of right chest tube with small residual right apical pneumothorax. Discharge Plan Discharge Clinical Impression: Pneumothorax after biopsy Patient Disposition: Admitted As Inpatient
[2021-05-27 10:11] LABS: MANUAL DIFF FLAG NO
[2021-05-27 10:19] LABS: Basophils Percent Auto 0.2 % (0-2); Eosinophils Absolute Auto 0.1 X10*3/uL (0.0-0.4); Eosinophils Percent Auto 1.7 % (0-4); Hematocrit 32.1 % (42.0-52.0); Hemoglobin 10.7 g/dl (14.0-18.0); Imm Gran Abs Auto 0.02 X10*3/uL (0.00-0.03); Imm Gran Pct Auto 0.3 % (0.0-0.4); Lymphocytes Absolute Auto 1.2 X10*3/uL (1.2-4.9); Lymphocytes Percent Auto 20.3 % (20-40); Mean Corpuscular HGB Conc 33.3 g/dl (31.0-36.0); Mean Corpuscular Hemoglobin 32.8 pg (27.0-33.0); Mean Corpuscular Volume 98.5 fL (80.0-98.0); Mean Platelet Volume 10.7 fL (9.4-12.4); Monocytes Absolute Auto 0.4 X10*3/uL (0.1-1.2); Monocytes Percent Auto 7.4 % (2-11); Neutrophils Absolute Auto 4.1 x10*3/uL (2.0-8.3); Neutrophils Percent Auto 70.1 % (45-73); Platelet Count 232 X10*3/uL (160-400); Red Blood Count 3.26 X10*6/uL (4.60-5.80); Red Cell Distribution Width 14.5 % (11.0-16.0); White Blood Count 5.8 X10*3/uL (4.8-10.8)
[2021-05-27 10:24] LABS: INTERNATIONAL NORM RATIO 1.1 (0.9-1.1); Prothrombin Time 12.5 SEC (9.9-13.0)
[2021-05-27 10:28] LABS: COVID-19 Test Negative (Negative)
[2021-05-27 10:29] LABS: Alanine Aminotransferase 46 U/L (0-40); Albumin Level 4.2 g/dL (3.5-5.0); Alkaline Phosphatase 122 U/L (39-117); Anion Gap 13 (12-20); Aspartate Amino Transferase 39 U/L (5-37); Bilirubin Direct 0.2 mg/dL (0.0-0.5); Bilirubin Total 0.3 mg/dL (0.0-1.0); Blood Urea Nitrogen 44 mg/dL (9-16); Calcium 9.5 mg/dL (8.4-10.2); Carbon Dioxide 19 mmol/L (22-29); Chloride 112 mmol/L (96-108); Creatinine Clr Calc Pharmacy 30.8; Estimated Glomerular Filt Rate 33; Glucose Random 108 mg/dL (60-115); Potassium 4.4 mmol/L (3.3-5.1); Sodium 140 mmol/L (135-145); Total Protein 8.4 g/dL (6.5-8.0)
[2021-05-27] MEDS: ondansetron HCL 4 MG/2 ML VIAL IVPUSH (11:07)
[2021-05-27] MEDS: Lidocaine HCl 2 % MPF 5 ML VIAL 20 ML INFILTRATI (11:27)
[2021-05-27] MEDS: Ketamine HCl/NS 50 MG/5 ML SYRINGE 68.039 MG IVPUSH (11:27)
[2021-05-27] MEDS: HYDROmorphone HCl 1 MG/ML SYRINGE IVPUSH (12:08)
[2021-05-27] MEDS: Ketamine HCl/NS 50 MG/5 ML SYRINGE 34 MG IVPUSH (12:12)
--- NOTE | 2021-05-27 14:45 | PHA.MEDREC ---
MED REC COMPLETE, NO ISSUES. ASPIRIN HAS BEEN ON HOLD FOR 4 DAYS Pharmacy Consult ? Medication Reconciliation Pharmacy has completed the medication reconciliation.
[2021-05-27] MEDS: HYDROmorphone HCl 0.5 MG/0.5 ML SYRINGE IVPUSH (15:07)
--- NOTE | 2021-05-27 16:55 | PM.IMHP ---
History of Present Illness Date of Service: 05/27/21 Chief Complaint: PTX 76yo M smoker without hx chronic lung disease, recently found to have 19 mm RUL nodule and 5 mm RLL nodule on CT at the [facility] on 04/19/21, along with radiographic evidence of severe emphysema. He saw Dr Navarro in [facility] Pulmonology clinic on 05/07/21 and a PET/CT and CT-guided biopsy were ordered. Biopsy yesterday was complicated by a small apical PTX that increased slightly after 2 hours. He had no chest pain and no dyspnea. He was not hypoxic. He was sent home with return precautions, and a CXR was ordered for today, which showed further increase in the PTX, justifying placement of a thoracostomy tube. A pigtail tube was placed by the ED physician with ketamine sedation. He denies any fever, chills, cough, dyspnea, or chest pain. Serum creatinine is 1.96, up from baseline of 1.36. Review of Systems Review of Systems: Yes all other systems are reviewed and are negative [facility] Medical History Anemia Carotid artery occlusion Coronary artery disease High cholesterol HTN (hypertension) Kidney stone Pertinent family history: no CAD Surgical History History of CEA (carotid endarterectomy) History of cystoscopy History of lithotripsy Hx of CABG Social History Household Members: None Housing: House Do you presently have visiting nurse or other home services: No Alcohol intake: never Patient Tobacco Use Status: Current everyday Tobacco user Tobacco use type: Cigarette Cigarettes Per Day: 5 Second Hand Smoke Exposure: No Use of substances other than those prescribed or required for medical reasons: No Advance Directives: No Advance Directives Information Provided: No service: Yes Current occupational status: retired Meds Allergies Allergy/AdvReac Type Severity Reaction Status Date / Time No Known Allergies Allergy Verified 05/07/21 10:06 [No Known Allergies*] Active Medications: Current Medications Allopurinol (Allopurinol 100 Mg Tablet) 100 mg PO DAILY [facility]ARC[facility] Amlodipine Besylate (Amlodipine Besylate 10 Mg Tablet) 10 mg PO BEDTIME NARC[facility]; Protocol Atorvastatin Calcium (Atorvastatin Calcium 80 Mg Tablet) 80 mg PO BEDTIME [facility] Ezetimibe (Ezetimibe 10 Mg Tablet) 10 mg PO BEDTIME [facility] Hydralazine HCl (Hydralazine Hcl 25 Mg Tablet) 25 mg PO BID [facility]; Protocol Sodium Chloride (Ns) 1,000 mls @ 75 mls/hr IVCONT .[id number] [facility] Stop: 05/28/21 06:19 Metoprolol Succinate (Metoprolol Succinate Er 100 Mg Tab.Er.24h) 100 mg PO DAILY [facility]; Protocol Non-Formulary Medication (Pyridoxine (Vitamin B6)) 100 mg PO DAILY [facility] Pharmacy Consult (Consult Rx Perform Med Rec) 1 each MISCELLANE ONCE PRN PRN Reason: Consult order Home Medications Medication Instructions Recorded Confirmed Last Taken Type lisinopril 20 mg tablet 20 mg PO BEDTIME 10/09/20 05/27/21 Unknown History amlodipine 10 mg tablet 10 mg PO BEDTIME 05/27/21 05/27/21 Unknown History aspirin 81 mg chewable tablet 81 mg PO DAILY 05/27/21 05/27/21 Unknown History ezetimibe 10 mg tablet (Zetia) 10 mg PO BEDTIME 05/27/21 05/27/21 Unknown History Physical Exam Vital Signs and Narrative: Vital Signs: Last Vital Signs Temp 97.6 F 05/27/21 13:37 Pulse 67 05/27/21 16:23 Resp 20 05/27/21 16:23 BP 126/75 05/27/21 16:23 Pulse Ox 96 05/27/21 16:23 Oxygen Flow Rate 2 05/27/21 12:05 BMI result Body Mass Index 22.1 Gen: in no acute distress HEENT: sclera anicteric, moist mucus membranes Neck: supple Lungs: clear to auscultation bilaterally, R-sided pigtail catheter with Heimlich valve Heart: regular rate and rhythm, no murmurs Abd: soft, non-tender, non-distended Ext: no edema Skin: warm/well-perfused Neuro: alert and oriented x3, no focal findings Psych: appropriate affect Results Labs CBC and Chem 7: 05/27/21 10:04 05/27/21 10:04 Labs: Laboratory Results - last 24 hr 05/27/21 05/27/21 05/27/21 10:04 10:04 10:04 MCV 98.5 H MCH 32.8 MCHC 33.3 RDW 14.5 Plt Count 232 MPV 10.7 Immature Gran % (Auto) 0.3 Neut % (Auto) 70.1 Lymph % (Auto) 20.3 Parker % (Auto) 7.4 Eos % (Auto) 1.7 Baso % (Auto) 0.2 Lymph # (Auto) 1.2 Parker # (Auto) 0.4 Eos # (Auto) 0.1 Baso # (Auto) 0.0 Abs Immat Gran (auto) 0.02 Absolute Neuts (auto) 4.1 Absolute Nucleated RBC 0.000 Nucleated RBC % (auto) 0.0 PT 12.5 INR 1.1 Anion Gap 13 Estim Creat Clear Calc 30.8 Estimated GFR 33 Random Glucose 108 Calcium 9.5 D Total Bilirubin 0.3 Direct Bilirubin 0.2 AST 39 H ALT 46 H Alkaline Phosphatase 122 H Total Protein 8.4 H Albumin 4.2 COVID-19 (TANISHA) COVID-19 Clin Com 05/27/21 10:04 MCV MCH MCHC RDW Plt Count MPV Immature Gran % (Auto) Neut % (Auto) Lymph % (Auto) Parker % (Auto) Eos % (Auto) Baso % (Auto) Lymph # (Auto) Parker # (Auto) Eos # (Auto) Baso # (Auto) Abs Immat Gran (auto) Absolute Neuts (auto) Absolute Nucleated RBC Nucleated RBC % (auto) PT INR Anion Gap Estim Creat Clear Calc Estimated GFR Random Glucose Calcium Total Bilirubin Direct Bilirubin AST ALT Alkaline Phosphatase Total Protein Albumin COVID-19 (TANISHA) Negative COVID-19 Clin Com See Note Impressions Chest X-Ray 05/27/21 12:28 IMPRESSION: Insertion of right chest tube with small residual right apical pneumothorax. Imaging Radiologist's Impressions: Impressions Chest X-Ray 05/27/21 12:28 IMPRESSION: Insertion of right chest tube with small residual right apical pneumothorax. Assessment and Plan (1) Pneumothorax after biopsy: Status: Acute (2) Pulmonary nodules: Status: Acute Plan ?75 year-old male smoker with CAD s/p CABG, COD s/p CEA, HLD, HTN, nephrolithiasis, undergoing workup for pulmonary nodules, presenting with worsening PTX after CT-guided biopsy yesterday. # post-procedure PTX # pulmonary nodules - s/p pigtail tube. admit to M/S on observation. Pulm consult, repeat CXR in am. # JOSE ALFREDO - hydrate, hold lisinopril, check renal US [hx postrenal obstruction], recheck SCr in am # CAD # HLD # HTN - continue metoprolol, amlodipine, hydralazine, atorvastatin, ezetimibe - hold ASA # tobacco abuse - declines NRT # VTE ppx - SCDs # code - FULL CODE Quality Stroke Does the patient have a stroke diagnosis?: No VTE Prior VTE?: No VTE Risk Level:: Medical - moderate - high VTE Device Contraindication: N/A - Device Ordered VTE Drug Contraindication: Treatment Not Indicated
[2021-05-27] MEDS: Morphine Sulfate 4 MG/ML CARTRIDGE 2 MG IVPUSH ×2 (18:15→23:23)
[2021-05-27] MEDS: 0.9 % Sodium Chloride 1,000 ML 75 ML IVCONT (18:16)
--- NOTE | 2021-05-27 20:40 | PC.NURSE ---
Assumed care of pt from main ED. Pt ambulatory from stretcher to bed, vitals as charted. Medicated per MAR. Endorses pain to chest tube insertion site. Call light at hand, denies further needs. Awaiting inpatient bed assignment
[2021-05-27] MEDS: Atorvastatin Calcium 80 MG TABLET PO (20:43)
[2021-05-27] MEDS: Ezetimibe 10 MG TABLET PO (20:43)
[2021-05-27] MEDS: oxyCODONE HCl Immed Release 5 MG TABLET PO (20:43)
[2021-05-27] MEDS: amLODIPine Besylate 10 MG TABLET PO (20:43)
[2021-05-27] MEDS: hydrALAZINE HCl 25 MG TABLET PO (20:43)
[2021-05-28] MEDS: oxyCODONE HCl Immed Release 5 MG TABLET PO (04:30)
[2021-05-28 06:11] VITALS: BP 139/64; PULSE 72; RESP 17; O2SAT 94
[2021-05-28 07:15] LABS: Anion Gap 12 (12-20); Blood Urea Nitrogen 31 mg/dL (9-16); Carbon Dioxide 18 mmol/L (22-29); Chloride 114 mmol/L (96-108); Creatinine Clr Calc Pharmacy 46.1; Estimated Glomerular Filt Rate 53; Glucose Random 121 mg/dL (60-115); Sodium 140 mmol/L (135-145)
[2021-05-28 08:16] VITALS: BP 143/66; PULSE 69; RESP 16; O2SAT 95
--- NOTE | 2021-05-28 09:48 | PM.CNPUL ---
History of Present Illness History of Present Illness Consult date: 05/28/21 Reason for consult: pneumothorax Chief complaint: PTX Narrative: Date of Service: 05/28/21 Chief Complaint: PTX,S/P Chest tube. 76yo M smoker without hx chronic lung disease, recently found to have 19 mm RUL nodule and 5 mm [address] nodule on CT at the [facility] on 04/19/21, along with radiographic evidence of severe emphysema.? He saw Dr Navarro in [facility] Pulmonology clinic on 05/07/21 and a PET/CT and CT-guided biopsy were ordered.? Biopsy yesterday was complicated by a small apical PTX that increased slightly after 2 hours.? He had no chest pain and no dyspnea.? He was not hypoxic.? He was sent home with return precautions, and a CXR was ordered for today, which showed further increase in the PTX, justifying placement of a thoracostomy tube.? A pigtail tube was placed by the ED physician with ketamine sedation.? Post to chest tube placement chest x-ray shows that the pneumothorax is or resolved. He denies any fever, chills, cough, dyspnea, or chest pain.? He is very anxious to go home. Review of Systems Review of Systems Review of Systems: Yes all other systems are reviewed and are negative (Also as in [facility]) [facility] Past Medical History Medical History Anemia Carotid artery occlusion Coronary artery disease High cholesterol HTN (hypertension) Kidney stone Surgical History Surgical History History of CEA (carotid endarterectomy) History of cystoscopy History of lithotripsy Hx of CABG Social History Social History Household Members: None Housing: House Do you presently have visiting nurse or other home services: No Alcohol intake: never Patient Tobacco Use Status: Current everyday Tobacco user Tobacco use type: Cigarette Cigarettes Per Day: 5 Second Hand Smoke Exposure: No Use of substances other than those prescribed or required for medical reasons: No Advance Directives: No Advance Directives Information Provided: No service: Yes Current occupational status: retired Meds Allergies Allergy/AdvReac Type Severity Reaction Status Date / Time No Known Allergies Allergy Verified 05/07/21 10:06 [No Known Allergies*] Active Medications: Current Medications Acetaminophen (Acetaminophen 325 Mg Tablet) 650 mg PO Q6H PRN PRN Reason: Pain, Mild (Pain Scale 1-3) Allopurinol (Allopurinol 100 Mg Tablet) 100 mg PO DAILY [facility] Amlodipine Besylate (Amlodipine Besylate 10 Mg Tablet) 10 mg PO BEDTIME [facility]; Protocol Last Admin: 05/27/21 20:43 Dose: 10 mg Documented by: Atorvastatin Calcium (Atorvastatin Calcium 80 Mg Tablet) 80 mg PO BEDTIME [facility] Last Admin: 05/27/21 20:43 Dose: 80 mg Documented by: Ezetimibe (Ezetimibe 10 Mg Tablet) 10 mg PO BEDTIME [facility] Last Admin: 05/27/21 20:43 Dose: 10 mg Documented by: Hydralazine HCl (Hydralazine Hcl 25 Mg Tablet) 25 mg PO BID [facility]; Protocol Last Admin: 05/27/21 20:43 Dose: 25 mg Documented by: Metoprolol Succinate (Metoprolol Succinate Er 100 Mg Tab.Er.24h) 100 mg PO DAILY [facility]; Protocol Morphine Sulfate (Morphine Sulfate 4 Mg/Ml Cartridge) 2 mg IVPUSH Q4H PRN; Protocol PRN Reason: Pain, Severe (Pain Scale 7-10) Last Admin: 05/27/21 23:23 Dose: 2 mg Documented by: Oxycodone HCl (Oxycodone Hcl Immed Release 5 Mg Tablet) 5 mg PO Q6H PRN PRN Reason: Pain, Moderate (Pain Scale 4-6 Last Admin: 05/28/21 04:30 Dose: 5 mg Documented by: Pharmacy Consult (Consult Rx Perform Med Rec) 1 each MISCELLANE ONCE PRN PRN Reason: Consult order Pyridoxine HCl (Pyridoxine Hcl (Vitamin B6) 50 Mg Tablet) 100 mg PO DAILY [facility] Sodium Chloride (0.9 % Sodium Chloride Flush 3 Ml Syringe) 3 ml IVFLUSH QSHIFT [facility] Last Admin: 05/28/21 07:45 Dose: Not Given Documented by: Home Medications Medication Instructions Recorded Confirmed Last Taken Type lisinopril 20 mg tablet 20 mg PO BEDTIME 10/09/20 05/27/21 Unknown History amlodipine 10 mg tablet 10 mg PO BEDTIME 05/27/21 05/27/21 Unknown History aspirin 81 mg chewable tablet 81 mg PO DAILY 05/27/21 05/27/21 Unknown History ezetimibe 10 mg tablet (Zetia) 10 mg PO BEDTIME 05/27/21 05/27/21 Unknown History Physical Exam Vital Signs: Vital Signs: Last Vital Signs Temp 97.8 F 05/27/21 19:08 Pulse 69 05/28/21 08:16 Resp 16 05/28/21 08:16 BP 143/66 H 05/28/21 08:16 Pulse Ox 95 05/28/21 08:16 Oxygen Flow Rate 2 05/27/21 12:05 BMI result Body Mass Index 22.1 Const: General: comfortable, no acute distress, alert and awake Orientation/consciousness: patient oriented x3 HENMT: Head: Yes normal to inspection General nose exam: No nasal polyps present and No nasal discharge present Face and sinus: Yes sinuses nontender Mouth: oropharynx normal Throat: Yes posterior oropharynx normal Eyes: General: appearance normal, both eyes and all related structures Neck: Neck: Yes normal visual inspection, Yes no lymphadenopathy, Yes trachea midline and Yes no JVD Thyroid: Thyroid normal Chest: Chest palpation & inspection: normal inspection of the chest (Mid sternal scar from previous CABG surgery) and normal palpation of entire chest wall (Minimal crepitus around the insertion site) Resp: Other: Percussion note is hyper-resonant breath sounds are quite distant with prolonged expiratory phase. No wheezes or rhonchi are heard. Cardio: Palpation: normal PMI Rate: regular rate Rhythm: regular rhythm Heart sounds: no gallops and no murmurs GI: Palpation (GI): Soft to palpation, nontender, No hepatosplenomegaly present and no masses Auscultation: normal bowel sounds Back/Spine/Pelvis: Thoracic/Lumbar Spine: thoracic and lumbar spine normal to inspection Skin: General skin exam: no rashes or lesions noted Neuro: General: patient oriented x3 and no focal motor deficits Cranial nerves: Yes CN's II-XII intact bilaterally Extrem: General: Yes normal to inspection, Yes no clubbing, cyanosis or edema and Yes no calf tenderness Psych: Appearance: grossly normal and well kempt Speech and movement: Normal speech and movement present Results Laboratory Findings CBC and BMP: 05/27/21 10:04 05/28/21 06:13 ABG, PT/INR, D-dimer: PT/INR, D-dimer PT 12.5 SEC (9.9-13.0) 05/27/21 10:04 INR 1.1 (0.9-1.1) 05/27/21 10:04 Abnormal lab findings: Abnormal Labs 05/27/21 05/27/21 05/28/21 10:04 10:04 06:13 RBC 3.26 L Hgb 10.7 L Hct 32.1 L MCV 98.5 H Chloride 112 H 114 H Carbon Dioxide 19 L 18 L BUN 44 H 31 H Creatinine 1.96 H Random Glucose 121 H AST 39 H ALT 46 H Alkaline Phosphatase 122 H Total Protein 8.4 H Diagnostic Findings Chest x-ray: report reviewed and image reviewed Assessment and Plan (1) Pulmonary nodules: Status: Acute (2) Pneumothorax after biopsy: Status: Acute (3) COPD (chronic obstructive pulmonary disease): Status: Acute Plan This gentleman who is an active smoker, Denies having had any previous pulmonary issues, except mild intermittent cough and is not on any medications. Recently evaluated for pulmonary nodules. He is post biopsy for her a 19 mm nodule in right lower lobe. Has post biopsy pneumothorax, now resolved after the chest tube insertion. The pigtail catheter is attached to [address] way valve . Recc . I think we should have thoracic surgical consult, for advice and further management. * I discussed the case with Dr. Danuta Chavez , and I asked him to see the patient and advise. Procedures Date of Service Date of Service: 05/28/21
[2021-05-28] MEDS: hydrALAZINE HCl 25 MG TABLET PO (10:51)
[2021-05-28] MEDS: Metoprolol Succinate ER 100 MG TAB.ER.24H PO (10:52)
[2021-05-28] MEDS: Pyridoxine HCl (Vitamin B6) 50 MG TABLET 100 MG PO (10:52)
[2021-05-28] MEDS: allopurinoL 100 MG TABLET PO (10:52)
--- NOTE | 2021-05-28 11:11 | PC.NURSE ---
Pt is A&Ox3, anxious and aggitated due to wanting to leave. Ambulates independently, no pain at this time, plan for CXR and pulm consult. Call hector within reach, will continue to monitor.
--- NOTE | 2021-05-28 13:08 | P.CONGS_ITS ---
History of Present Illness Consult details Consult date: 05/28/21 Requesting physician: Spencer Maria Narrative: 76-year-old male long-time and current smoker with 60+ pack-year smoking history who presented for a CT-guided biopsy of right upper lobe pulmonary nodule on 05/26/2021 which was done and results are pending. Postprocedure x-ray did show small pneumothorax with some increased at 02:00 hours and the patient was sent home to return the next morning for another repeat x-ray. This showed further increase in the pneumothorax and a pigtail catheter was placed on the morning of 2021 with resolution of the pneumothorax. He spent overnight with a Hei mlich valve on and had no issues. He denies cough, hemoptysis, fever, chills, unintentional weight loss, chest pain except that the side of the chest tube, or any new neurologic symptoms. Other than above, 12 point review of systems was done and documented separately in the office chart with detailed social and family history. [facility] Past Medical History Medical History Anemia Carotid artery occlusion Coronary artery disease High cholesterol HTN (hypertension) Kidney stone Surgical History Surgical History History of CEA (carotid endarterectomy) History of cystoscopy History of lithotripsy Hx of CABG Social History Social History Household Members: None Housing: House Do you presently have visiting nurse or other home services: No Alcohol intake: never Patient Tobacco Use Status: Current everyday Tobacco user Tobacco use type: Cigarette Cigarettes Per Day: 5 Second Hand Smoke Exposure: No Use of substances other than those prescribed or required for medical reasons: No Advance Directives: No Advance Directives Information Provided: No service: Yes Current occupational status: retired Meds Allergies Allergy/AdvReac Type Severity Reaction Status Date / Time No Known Allergies Allergy Verified 05/07/21 10:06 [No Known Allergies*] Active Medications: Current Medications Acetaminophen (Acetaminophen 325 Mg Tablet) 650 mg PO Q6H PRN PRN Reason: Pain, Mild (Pain Scale 1-3) Acetaminophen/Codeine Phosphate (Acetaminophen With Codeine # 3 Tablet) 1 tab PO Q4H PRN PRN Reason: moderate pain Allopurinol (Allopurinol 100 Mg Tablet) 100 mg PO DAILY [facility] Last Admin: 05/28/21 10:52 Dose: 100 mg Documented by: Amlodipine Besylate (Amlodipine Besylate 10 Mg Tablet) 10 mg PO BEDTIME [facility]; Protocol Last Admin: 05/27/21 20:43 Dose: 10 mg Documented by: Atorvastatin Calcium (Atorvastatin Calcium 80 Mg Tablet) 80 mg PO BEDTIME [facility] Last Admin: 05/27/21 20:43 Dose: 80 mg Documented by: Ezetimibe (Ezetimibe 10 Mg Tablet) 10 mg PO BEDTIME [facility] Last Admin: 05/27/21 20:43 Dose: 10 mg Documented by: Hydralazine HCl (Hydralazine Hcl 25 Mg Tablet) 25 mg PO BID [facility]; Protocol Last Admin: 05/28/21 10:51 Dose: 25 mg Documented by: Metoprolol Succinate (Metoprolol Succinate Er 100 Mg Tab.Er.24h) 100 mg PO DAILY [facility]; Protocol Last Admin: 05/28/21 10:52 Dose: 100 mg Documented by: Pharmacy Consult (Consult Rx Perform Med Rec) 1 each MISCELLANE ONCE PRN PRN Reason: Consult order Pyridoxine HCl (Pyridoxine Hcl (Vitamin B6) 50 Mg Tablet) 100 mg PO DAILY [facility] Last Admin: 05/28/21 10:52 Dose: 100 mg Documented by: Sodium Chloride (0.9 % Sodium Chloride Flush 3 Ml Syringe) 3 ml IVFLUSH QSHIFT [facility] Last Admin: 05/28/21 07:45 Dose: Not Given Documented by: Home Medications Medication Instructions Recorded Confirmed Last Taken Type lisinopril 20 mg tablet 20 mg PO BEDTIME 10/09/20 05/27/21 Unknown History amlodipine 10 mg tablet 10 mg PO BEDTIME 05/27/21 05/27/21 Unknown History aspirin 81 mg chewable tablet 81 mg PO DAILY 05/27/21 05/27/21 Unknown History ezetimibe 10 mg tablet (Zetia) 10 mg PO BEDTIME 05/27/21 05/27/21 Unknown History Physical Exam Vital Signs: Vital Signs: Last Vital Signs Temp 97.8 F 05/27/21 19:08 Pulse 69 05/28/21 08:16 Resp 16 05/28/21 08:16 BP 143/66 H 05/28/21 08:16 Pulse Ox 95 02/18/22 08:16 Oxygen Flow Rate 2 05/27/21 12:05 BMI result Body Mass Index 22.1 General: No acute distress HEENT: Moist mucous membranes, normocephalic, pupils equal round and reactive to light. Neck: No thyromegaly, supple, no JVD Lymph: No cervical, supraclavicular, or other lymphadenopathy Chest: No chest wall abnormalities or deformities stable sternum and well- healed sternotomy scar Heart: Regular rate and rhythm Lungs: Clear to auscultation bilaterally Abdomen: Soft, nontender, normal bowel sounds Extremities: No edema, cyanosis, or clubbing. Full range of motion Neuro: Grossly intact, alert and oriented x3, and nonfocal Skin: Warm and dry no rashes Affect: Normal Results Labs Result diagrams: 05/27/21 10:04 05/28/21 06:13 Labs: Abnormal lab results 05/28/21 Range/Units 06:13 Chloride 114 H (96-108) mmol/L Carbon Dioxide 18 L (22-29) mmol/L BUN 31 H (9-16) mg/dL Random Glucose 121 H (60-115) mg/dL BMP 05/28/21 06:13 Sodium 140 Potassium 4.0 Chloride 114 H Carbon Dioxide 18 L BUN 31 H Creatinine 1.31 Calcium 9.0 All other labs normal. Imaging Additional studies: CT chest from outside institution reveals a 1.9 cm pulmonary nodule in the right upper lobe with moderate to severe emphysematous changes. There is no med iastinal lymphadenopathy and no pleural fluid. Assessment and Plan (1) Pneumothorax after biopsy: Status: Acute [age] year old male with iatrogenic pneumothorax after lung biopsy doing quite well from a clinical standpoint with a pigtail in place. I did connect the pigtail to an Atrium container to reliably assess if there is an air leak as I do not think this is reliable to do with the Heimlich valve always. There was no air leak on the atrium container with cough or regular breathing and there was no shelton of air once the tube was unclamped for after switching it over. For this reason I cut the stitch and removed the chest tube placing a occlusive sterile dressing over the site. Plan will be for a portable chest x- ray to be done and if that is good he could be discharged home. That dressing needs to stay on for the next 48 hours and then it can be removed if discharged. 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 Procedures Date of Service Date of Service: 05/28/21
--- NOTE | 2021-05-28 14:07 | P.DS_ITS ---
DS: Providers Provider Date of Service: 05/28/21 Date of admission: 05/27/21 16:49 Date of discharge: 05/28/21 Primary care physician: JIMMY Weeks Consults: 05/27/21 16:49 Consult to Pulmonology Routine Consulting Provider: [facility] Pulmonology Services Reason for consultation: PTX s/p biopsy 05/28/21 10:20 Consult to Thoracic Surgery Routine Consulting Provider: Danuta Chavez Reason for consultation: post-biopsy PTX, CT with Heimlich in place DS: Diagnosis Discharge Diagnosis (1) Pneumothorax after biopsy: Status: Acute (2) Pulmonary nodules: Status: Acute (3) COPD (chronic obstructive pulmonary disease): Status: Acute (4) JOSE ALFREDO (acute kidney injury): Status: Acute DS: Summary Hospital Course Hospital Course: from my admission H+P, 05/27/21: 76yo M smoker without hx chronic lung disease, recently found to have 19 mm RUL nodule and 5 mm RLL nodule on CT at the [facility] on 04/19/21, along with radiographic evidence of severe emphysema.? He saw Dr Naavrro in [facility] Pulmonology clinic on 05/07/21 and a PET/CT and CT-guided biopsy were ordered.? Biopsy yesterday was complicated by a small apical PTX that increased slightly after 2 hours.? He had no chest pain and no dyspnea.? He was not hypoxic.? He was sent home with return precautions, and a CXR was ordered for today, which showed further increase in the PTX, justifying placement of a thoracostomy tube.? A pigtail tube was placed by the ED physician with ketamine sedation.? He denies any fever, chills, cough, dyspnea, or chest pain.? Serum creatinine is 1.96, up from baseline of 1.36. He was admitted to the hospital under observation with pigtail chest tube with Heimlich valve. Pneumothorax resolved. The pigtail was connected to an Atrium container and there was no air leak. The tube was unclamped, then removed. CXR showed no pneumothorax. Serum creatinine returned to normal. He was discharged home with a prescription for APAP/codeine and nicotine patch to encourage smoking cessation. He should repeat BMP in 1 week. He should follow up with Primary Care and Pulmonology in 1 week to review results of biopsies and be scheduled for PET/CT scan. Time Spent with Patient Time attestation: Total time spent providing and/or coordinating discharge services: 35 Discharge coordination time: Greater than 30 minutes Quality: Stroke Does the patient have a stroke diagnosis?: No Physical Exam Vital Signs: Vital Signs: Last Vital Signs Temp 97.8 F 05/27/21 19:08 Pulse 69 05/28/21 08:16 Resp 16 05/28/21 08:16 BP 143/66 H 05/28/21 08:16 Pulse Ox 95 05/28/21 08:16 BMI result Body Mass Index 22.1 Gen: in no acute distress HEENT: sclera anicteric, moist mucus membranes Neck: supple Lungs: clear to auscultation bilaterally Heart: regular rate and rhythm, no murmurs Abd: soft, non-tender, non-distended Ext: no edema Skin: warm/well-perfused Neuro: alert and oriented x3, no focal findings Psych: appropriate affect DS: Data Data Completed and Pending Completed studies during hospitalization [Text1]: Laboratory Tests 05/27/21 05/27/21 05/27/21 10:04 10:04 10:04 WBC 5.8 RBC 3.26 L Hgb 10.7 L Hct 32.1 L MCV 98.5 H MCH 32.8 MCHC 33.3 RDW 14.5 Plt Count 232 MPV 10.7 Immature Gran % (Auto) 0.3 Neut % (Auto) 70.1 Lymph % (Auto) 20.3 Billings % (Auto) 7.4 Eos % (Auto) 1.7 Baso % (Auto) 0.2 Lymph # (Auto) 1.2 Bill[place] # (Auto) 0.4 Eos # (Auto) 0.1 Baso # (Auto) 0.0 Abs Immat Gran (auto) 0.02 Absolute Neuts (auto) 4.1 Absolute Nucleated RBC 0.000 Nucleated RBC % (auto) 0.0 PT 12.5 INR 1.1 Sodium 140 Potassium 4.4 Chloride 112 H Carbon Dioxide 19 L Anion Gap 13 BUN 44 H Creatinine 1.96 H Estim Creat Clear Calc 30.8 Estimated GFR 33 Random Glucose 108 Calcium 9.5 D Total Bilirubin 0.3 Direct Bilirubin 0.2 AST 39 H ALT 46 H Alkaline Phosphatase 122 H Total Protein 8.4 H Albumin 4.2 COVID-19 (TANISHA) COVID-19 Clin Com 05/27/21 05/28/21 10:04 06:13 WBC RBC Hgb Hct MCV MCH MCHC RDW Plt Count MPV Immature Gran % (Auto) Neut % (Auto) Lymph % (Auto) Bill[place] % (Auto) Eos % (Auto) Baso % (Auto) Lymph # (Auto) Bill[place] # (Auto) Eos # (Auto) Baso # (Auto) Abs Immat Gran (auto) Absolute Neuts (auto) Absolute Nucleated RBC Nucleated RBC % (auto) PT INR Sodium 140 Potassium 4.0 Chloride 114 H Carbon Dioxide 18 L Anion Gap 12 BUN 31 H Creatinine 1.31 Estim Creat Clear Calc 46.1 Estimated GFR 53 Random Glucose 121 H Calcium 9.0 Total Bilirubin Direct Bilirubin AST ALT Alkaline Phosphatase Total Protein Albumin COVID-19 (TANISHA) Negative COVID-19 Clin Com See Note ITS Impressions Chest X-Ray 05/27/21 12:28 IMPRESSION: Insertion of right chest tube with small residual right apical pneumothorax. Renal Ultrasound 05/27/21 18:27 IMPRESSION: No hydronephrosis or nephrolithiasis. Chest X-Ray 05/28/21 08:03 IMPRESSION: Tiny minimal right pneumothorax which is improved. Development of right chest subcutaneous emphysema. Chest X-Ray 05/28/21 13:20 IMPRESSION: Status post removal of right chest tube. There is no pneumothorax seen. There is chronic bilateral interstitial lung changes, stable. Discharge Plan Discharge Patient Disposition: Home, Self-Care Discharge Diagnosis: pneumothorax after lung biopsy, lung nodule, tobacco abuse, acute kidney injury Referrals: Rom Navarro MD [Physician] - 1 Week Arnulfo Angeles PA [Primary Care Provider] - 1 Week Discharge Medications: New acetaminophen-codeine 300-30 mg Tablet 1 tab PO Q8H PRN (Reason: severe pain) Qty: 12 0RF nicotine 7 mg/24 hr patch 24 hour 1 patch transdermal Q24H Qty: 30 0RF Continued atorvastatin 80 mg tablet 80 mg PO BEDTIME 90 Days Qty: 90 1RF metoprolol succinate 100 mg tablet extended release 24 hr 100 mg PO DAILY Qty: 90 3RF hydralazine 50 mg tablet 25 mg PO BID 90 Days Qty: 90 1RF ezetimibe [Zetia] 10 mg tablet 10 mg PO BEDTIME 0RF amlodipine 10 mg tablet 10 mg PO BEDTIME 0RF aspirin 81 mg Tablet,Chewable 81 mg PO DAILY 0RF allopurinol 100 mg tablet 100 mg PO DAILY 90 Days Qty: 90 1RF pyridoxine (vitamin B6) 100 mg tablet 100 mg PO DAILY 90 Days Qty: 90 1RF lisinopril 20 mg tablet 20 mg PO BEDTIME 0RF Discharge Orders: Discharge Order (Routine); Ordered 05/28/21 Ordered By: Spencer Maria Diet: advance to usual diet Activity on Discharge: As tolerated Stand Alone Forms: Patient Portal Discharge page Other Ambulatory Orders: Basic Metabolic Panel (Routine) Timeframe: 1 Week Facility: [facility] - Location: Laboratory Ordered By: Spencer Maria Care Plan Goals: recovery from pneumothorax diagnosis of lung nodule smoking cessation renal health Health Concerns: pne Plan of Treatment: follow up with DR Navarro in 1 wk for results of biopsy Tylenol with codeine for severe pain, otherwise Tylenol for mild-moderate pain recheck labs [basic metabolic panel] in 1 week see primary care provider in 1 wk LEAVE DRESSING ON FOR 48 HOURS Assessment: see Discharge Summary Patient Instructions: Cigarette Smoking and Your Health (GEN), Chest Tubes (DC)
--- NOTE | 2021-05-28 14:41 | MHC.CM.PN ---
Met with patient in regards to discharge planning. Patient lives alone, ambulates independently and had no services prior to coming to the hospital. No services anticipated to be needed because patient is not homebound. PCP verified. Copy of HCP verified to be on file. Patient recieved 2 Moderna vaccines. Obs notice expained and signed. Patient will tranpsort himself home. Continue to monitor for d/c needs.
== END 2021-05-28 15:11 | disposition home or self-care (01) ==
LOC: HO.ED 12:38 → HO.EDOVER 16:57
PROVIDERS: Radiology Diagnostic Radiology; Admitting Provider Family Medicine; Emergency Provider Emergency Medicine; PCP Physician Assistant; Visit Provider Family Medicine
PROC: (CPT 32551; principal; 2021-05-27 11:00)
DX: J95.811 Postprocedural pneumothorax (principal); R91.8 Other nonspecific abnormal finding of lung field; J43.9 Emphysema, unspecified; N17.9 Acute kidney failure, unspecified; I25.10 Atherosclerotic heart disease of native coronary artery without angina pectoris; I65.29 Occlusion and stenosis of unspecified carotid artery; I11.9 Hypertensive heart disease without heart failure; D64.9 Anemia, unspecified; E78.00 Pure hypercholesterolemia, unspecified; F17.210 Nicotine dependence, cigarettes, uncomplicated; Z20.822 Contact with and (suspected) exposure to COVID-19; Z95.828 Presence of other vascular implants and grafts; Z97.8 Presence of other specified devices; Z98.890 Other specified postprocedural states; Z95.1 Presence of aortocoronary bypass graft; Z79.82 Long term (current) use of aspirin; Z79.899 Other long term (current) drug therapy
CPT/HCPCS: 32551; 36415; 71045; 76775; 80048; 80076; 85025; 85610; 87635; 93005; 96361; 96374; 96375; 96376; 99218; 99285; J1170; J2270; J2405

== ENCOUNTER → 2021-06-03 09:01 | Outpatient (BNVA) | payer OTHER, SELFPAY | PROVIDERS: PCP Physician Assistant; Visit Provider Internal Medicine Pulmonary Disease | DX: J44.9 Chronic obstructive pulmonary disease, unspecified (principal); C34.90 Malignant neoplasm of unspecified part of unspecified bronchus or lung | CPT/HCPCS: 99212 ==

== ENCOUNTER → 2021-06-11 10:03 | Outpatient (BNVA) | payer OTHER, SELFPAY | PROVIDERS: PCP Physician Assistant; Visit Provider Surgery | DX: C34.90 Malignant neoplasm of unspecified part of unspecified bronchus or lung (principal); R91.1 Solitary pulmonary nodule; F17.210 Nicotine dependence, cigarettes, uncomplicated; Z79.899 Other long term (current) drug therapy | CPT/HCPCS: 99212 ==

== ENCOUNTER → 2021-06-17 12:39 | Outpatient (BNVA) | payer OTHER, SELFPAY | PROVIDERS: PCP Physician Assistant; Visit Provider Nurse Practitioner Family | DX: Z01.810 Encounter for preprocedural cardiovascular examination (principal); I25.10 Atherosclerotic heart disease of native coronary artery without angina pectoris; F17.210 Nicotine dependence, cigarettes, uncomplicated; C34.90 Malignant neoplasm of unspecified part of unspecified bronchus or lung; Z95.1 Presence of aortocoronary bypass graft | CPT/HCPCS: 99212 ==

== ENCOUNTER → 2021-06-25 08:43 | Outpatient (BNVA) | payer OTHER, SELFPAY | PROVIDERS: PCP Physician Assistant; Visit Provider Internal Medicine Pulmonary Disease | DX: J44.9 Chronic obstructive pulmonary disease, unspecified (principal); C34.90 Malignant neoplasm of unspecified part of unspecified bronchus or lung | CPT/HCPCS: 99212 ==

== ENCOUNTER 2021-06-28 14:53 | Outpatient (REF) | payer MEDICARE, SELFPAY ==
--- NOTE | ~2021-06-28 | US_ITS ---
EXAMINATION: US EXTRACRANIAL CAROTID DUPLEX, BILATERAL CLINICAL INFORMATION: Occlusion and stenosis of the carotid arteries, right carotid endarterectomy in 2019 COMPARISON: Carotid duplex on 09/10/2019 TECHNIQUE: Real-time ultrasound and Doppler techniques (integrating B-mode 2-D vascular images, Doppler spectral analysis and color-flow Doppler imaging) were utilized to interrogate the extracranial carotid arteries, the vertebral arteries and proximal subclavian arteries bilaterally. The degree of stenosis is determined by criteria similar to NASCET. FINDINGS: Right Side: 1. There is calcified atherosclerotic plaque seen in the bifurcation/proximal ICA region. 2. The common carotid artery PSV proximally is 48 cm/s and distally 80 cm/s. 3. The proximal internal carotid artery velocities are 112 cm/s systolic and 20 cm/s diastolic. 4. The proximal external carotid artery PSV is 128 cm/s. 5. The vertebral artery shows antegrade flow. 6. The subclavian artery waveforms are normal. Left Side: 1. There is calcified atherosclerotic plaque seen in the bifurcation/proximal ICA region. 2. The common carotid artery PSV proximally is 58 cm/s and distally 82 cm/s. 3. The proximal internal carotid artery velocities are 132 cm/s systolic and 23 cm/s diastolic. 4. The proximal external carotid artery PSV is 218 cm/s. 5. The vertebral artery shows antegrade flow. 6. The subclavian artery waveforms are normal. US/US carotid duplex BI IMPRESSION: 1. RIGHT: Minimal, non-hemodynamically significant stenosis of the proximal right internal carotid artery corresponding to a 0-49% stenosis by velocity criteria. 2. LEFT: Moderate, hemodynamically significant stenosis of the proximal left internal carotid artery corresponding to a 50-79% stenosis by velocity criteria. 3. Elevated velocity in the left external carotid artery suggesting stenosis. 4. No change in the category severity of disease when compared to the previous study on 09/10/2019.
== END 2021-06-28 14:54 | disposition home or self-care (01) ==
LOC: HO.US 14:53
PROVIDERS: PCP Internal Medicine; Visit Provider Internal Medicine
DX: I65.22 Occlusion and stenosis of left carotid artery (principal); R09.89 Other specified symptoms and signs involving the circulatory and respiratory systems
CPT/HCPCS: 93880

== ENCOUNTER 2021-06-29 06:04 | Day surgery (SDC) | payer OTHER, SELFPAY ==
--- NOTE | 2021-06-28 09:56 | HO.ANESPROP2 ---
Documented by User: Ivett De Paz NP 06/28/21 10:05 HPI - Anesthesia Eval Consult details Narrative: 76yo M for Endoscopic Bronchial Ultrasound RUL lung CA, new dx (had pneumothorax after bx requiring chest tube, resolved by cxr) Cardiac optimized, no further testing preop [facility] Active Problems Active Problems: All Active Problems (Updated 06/25/21 @ 10:19 by Rom Navarro MD) Preop cardiovascular exam (Acute) Hx of CABG (Acute ~2018) Lung cancer (Acute ~2021) Pneumothorax after biopsy (Acute ~2021) Pulmonary nodules (Acute) COPD (chronic obstructive pulmonary disease) (Acute) Cigarette smoker (Acute) Coronary artery disease (Acute) HTN (hypertension) (Acute) Carotid stenosis, bilateral (Acute) Carotid artery occlusion (Acute) JOSE ALFREDO (acute kidney injury) (Acute) Hydronephrosis (Acute) Nephrolithiasis (Acute) Anemia (Acute) Past Medical History Medical History (Updated 06/29/21 @ 06:43 by Najma Mukherjee RN) Anemia Carotid artery occlusion Cigarette smoker Coronary artery disease High cholesterol HTN (hypertension) Kidney stone Lung cancer Pneumothorax after biopsy (~2021) Family History Family history of problems with anesthesia: No Surgical History Surgical History History of CEA (carotid endarterectomy) (~2018) History of chest tube placement (~2021) History of colonoscopy (~2020) History of cystoscopy (~2020) History of esophagogastroduodenoscopy (EGD) (~2020) History of lithotripsy (~2002) History of lung biopsy (~2021) Hx of CABG (~2018) History of Problems with Anesthesia: No Social History Social History Household Members: None Housing: House Do you presently have visiting nurse or other home services: No Alcohol intake: never Patient Tobacco Use Status: Current everyday Tobacco user Tobacco use type: Cigarette Cigarettes Per Day: 5 Second Hand Smoke Exposure: No Are you DNR?: No Advance Directives: No Advance Directives Information Provided: Yes Advance Directives Date on File: 05/28/21 service: Yes Current occupational status: retired Meds Allergies Allergy/AdvReac Type Severity Reaction Status Date / Time No Known Allergies Allergy Verified 06/25/21 08:59 [No Known Allergies*] Home Medications Medication Instructions Recorded Confirmed Last Taken Type lisinopril 20 mg tablet 20 mg PO BEDTIME 10/09/20 06/17/21 Unknown History amlodipine 10 mg tablet 10 mg PO BEDTIME 05/27/21 06/17/21 Unknown History aspirin 81 mg chewable tablet 81 mg PO DAILY 05/27/21 06/17/21 06/26/21 History ezetimibe 10 mg tablet (Zetia) 10 mg PO BEDTIME 05/27/21 06/17/21 Unknown History ascorbate calcium (vitamin C) 500 500 mg PO DAILY 06/11/21 06/17/21 Unknown History mg tablet cholecalciferol (vitamin D3) 25 25 mcg PO DAILY 06/11/21 06/17/21 Unknown History mcg (1,000 unit) capsule ferrous sulfate 324 mg (65 mg 324 mg PO DAILY 06/11/21 06/17/21 Unknown History iron) tablet,delayed release Exam Exam Date and Time: June 28, 2021 0956 Narrative Narrative: EKG 05/2021 Vent. Rate : 064 BPM ? ? Atrial Rate : 064 BPM ?? P-R Int : 204 ms? QRS Dur : 092 ms ? ? QT Int : 412 ms ? ? ? P-R-T Axes : 081 027 098 degrees ?? QTc Int : 425 ms ? Normal sinus rhythm Nonspecific ST and T wave abnormality Abnormal ECG When compared with ECG of 28-NOV-2018 12:30, T wave inversion no longer evident in Anterolateral leads echocardiogram 10/10/2019 showed EF 50-55%, mild left atrial dilatation, inferior septal, mid inferior hypokinetic, basal inferior akinetic, no significant valve abnormalities Assessment and Plan Assessment Anesthesia Assessment: Chart Reviewed Final Anesthetic Review Family History of Problems with Anesthesia: No History of Problems with Anesthesia: No Documented by User: Zachary Tabares MD 06/29/21 07:18 [facility] Past Medical History Medical History (Updated 06/29/21 @ 06:43 by Najma Mukherjee RN) Anemia Carotid artery occlusion Cigarette smoker Coronary artery disease High cholesterol HTN (hypertension) Kidney stone Lung cancer Pneumothorax after biopsy (~2021) Surgical History Surgical History History of CEA (carotid endarterectomy) (~2018) History of chest tube placement (~2021) History of colonoscopy (~2020) History of cystoscopy (~2020) History of esophagogastroduodenoscopy (EGD) (~2020) History of lithotripsy (~2002) History of lung biopsy (~2021) Hx of CABG (~2018) Social History Social History Household Members: None Housing: House Do you presently have visiting nurse or other home services: No Alcohol intake: never Patient Tobacco Use Status: Current everyday Tobacco user Tobacco use type: Cigarette Cigarettes Per Day: 5 Second Hand Smoke Exposure: No Are you DNR?: No Advance Directives: No Advance Directives Information Provided: Yes Advance Directives Date on File: 05/28/21 service: Yes Current occupational status: retired [employer] Allergies Allergy/AdvReac Type Severity Reaction Status Date / Time No Known Allergies Allergy Verified 06/25/21 08:59 [No Known Allergies*] Home Medications Medication Instructions Recorded Confirmed Last Taken Type lisinopril 20 mg tablet 20 mg PO BEDTIME 10/09/20 06/17/21 Unknown History amlodipine 10 mg tablet 10 mg PO BEDTIME 05/27/21 06/17/21 Unknown History aspirin 81 mg chewable tablet 81 mg PO DAILY 05/27/21 06/17/21 06/26/21 History ezetimibe 10 mg tablet (Zetia) 10 mg PO BEDTIME 05/27/21 06/17/21 Unknown History ascorbate calcium (vitamin C) 500 500 mg PO DAILY 06/11/21 06/17/21 Unknown History mg tablet cholecalciferol (vitamin D3) 25 25 mcg PO DAILY 06/11/21 06/17/21 Unknown History mcg (1,000 unit) capsule ferrous sulfate 324 mg (65 mg 324 mg PO DAILY 06/11/21 06/17/21 Unknown History iron) tablet,delayed release Exam Airway Mallampati Class: II TM Dist: >3cm Neck ROM: Full Loose/Missing/Broken Teeth: Yes (only a few teeth upper and lower. 90% of teeth missing) Heart: [id number] Lungs: cta b/l Assessment and Plan Assessment Anesthesia Assessment: Anesthesia Plan Discussed Final Anesthetic Review NPO: Yes ASA Class: III Final Preanesthetic Review: No Changes in Pt Med Stat, Meds/Allgs Chart Reviewed, Consent Obtained/Reviewed and Anes Risks/Benef Reviewed Patient Risk: Intermediate Procedure Risk: Intermediate Assessment/Block/Sedation in SS: Assess/Block/Sedation-SS Anesthetic Plan Anesthetic Plan: GA and Agree w/ Assess. and Plan Disposition: Standard PACU
[2021-06-29 06:13] VITALS: BP 140/68; PULSE 71; RESP 17; TEMP 35.9; O2SAT 99; BMI 21.5
[2021-06-29] MEDS: Lactated Ringers 1,000 ML 100 ML IVCONT (06:41)
--- NOTE | 2021-06-29 07:24 | MHC.SHP ---
Pre-Procedural Eval Section A Date of Service: 06/29/21 The patient is an INPATIENT: No The History & Physical has been completed within 30 days and I have reviewed it.: Yes Section B Chief Complaint: Malignant neoplasm of unspecified part lung Allergies: Allergies Allergy/AdvReac Type Severity Reaction Status Date / Time No Known Allergies Allergy Verified 06/25/21 08:59 [No Known Allergies*] Plan I have reviewed the history and physical and performed a pertinent physical examination on my patient. No changes have occurred unless specified.
--- NOTE | 2021-06-29 09:02 | W.PM.OPN ---
Operative Note Operative Note Date of Service: 06/29/21 Narrative: Preoperative diagnosis: Right upper lobe lung cancer /hilar /Mediastinal lymphadenopathy Postoperative diagnosis: Same Operation: Endobronchial ultrasound with biopsy of multiple lymph node stations for lung cancer staging Surgeon: Danuta Chavez MD Anesthesia: General Specimens: Mediastinal lymph nodes EBL: Operation in detail: The patient was brought to the operating room, placed supine on the operative table, anesthesia monitor devices were placed, and the patient was intubated with an 8 and half endotracheal tube. A time-out was performed confirming the correct patient, site, and procedure. The Olympus endobronchial ultrasound scope was then inserted through the endotracheal tube and the airways were visualized down to the subsegmental level bilaterally. Findings are no endobronchial lesions and no secretions. The ultrasound was then applied to all 3 stations visualizing the lymph nodes with the findings normal appearing small to moderate sized lymph nodes in all 3 stations exam and. First, we visualized with ultrasound the subcarinal lymph nodes in using a 19 gauge Olympus biopsy needle 3 passes were taking and sent for on-site evaluation. This process was then repeated with right paratracheal and left paratracheal lymph nodes. Findings are adequate sampling at least 1 pass of all 3 lymph node stations. additional passes were taken and sent for cytology at all 3. Hemostasis was then assured in the bronchoscope was removed. The patient tolerated the procedure well, was extubated in the operating room, and brought to the PACU in stable condition.
[2021-06-29 09:13] VITALS: BP 100/46; PULSE 63; RESP 16; TEMP 36.1; O2SAT 96
[2021-06-29 09:18] VITALS: BP 103/53; PULSE 63; RESP 20; O2SAT 96
[2021-06-29 09:23] VITALS: BP 108/58; PULSE 64; RESP 16; O2SAT 95
[2021-06-29 09:38] VITALS: BP 111/57; PULSE 62; RESP 16; TEMP 36.3; O2SAT 97
== END 2021-06-29 10:22 | disposition home or self-care (01) ==
PROVIDERS: PCP Internal Medicine; Visit Provider Surgery
PROC: (CPT 31653; principal; 2021-06-29 07:30)
DX: C34.11 Malignant neoplasm of upper lobe, right bronchus or lung (principal); R59.1 Generalized enlarged lymph nodes; I25.10 Atherosclerotic heart disease of native coronary artery without angina pectoris; Z95.1 Presence of aortocoronary bypass graft; I65.29 Occlusion and stenosis of unspecified carotid artery; I10 Essential (primary) hypertension; D64.9 Anemia, unspecified; E78.00 Pure hypercholesterolemia, unspecified; Z87.09 Personal history of other diseases of the respiratory system; Z79.82 Long term (current) use of aspirin; Z79.899 Other long term (current) drug therapy; Z87.442 Personal history of urinary calculi; Z98.890 Other specified postprocedural states; F17.210 Nicotine dependence, cigarettes, uncomplicated
CPT/HCPCS: 31653; 88172; 88173; 88177; 88305; J0171; J0690; J2370; J2405; J3010

== ENCOUNTER → 2021-07-16 08:47 | Outpatient (BNVA) | payer OTHER, SELFPAY | PROVIDERS: PCP Physician Assistant; Visit Provider Surgery | DX: C34.90 Malignant neoplasm of unspecified part of unspecified bronchus or lung (principal) | CPT/HCPCS: 99212 ==

== ENCOUNTER → 2021-08-06 08:37 | Outpatient (BNVA) | payer OTHER, SELFPAY | PROVIDERS: PCP Physician Assistant; Visit Provider Internal Medicine Pulmonary Disease | DX: R06.00 Dyspnea, unspecified (principal); J44.9 Chronic obstructive pulmonary disease, unspecified; C34.11 Malignant neoplasm of upper lobe, right bronchus or lung; Z90.2 Acquired absence of lung [part of] | CPT/HCPCS: 99212 ==

== ENCOUNTER → 2021-09-10 08:50 | Outpatient (BNVA) | payer OTHER, SELFPAY | PROVIDERS: PCP Physician Assistant; Visit Provider Internal Medicine Pulmonary Disease | DX: J44.9 Chronic obstructive pulmonary disease, unspecified (principal); C34.11 Malignant neoplasm of upper lobe, right bronchus or lung; Z98.890 Other specified postprocedural states | CPT/HCPCS: 99212 ==

== ENCOUNTER 2021-09-13 13:05 | Outpatient (REF) | payer MEDICARE, SELFPAY | END 2021-09-13 13:06 | disposition home or self-care (01) | LOC: HO.HMGCX 13:05 | PROVIDERS: PCP Internal Medicine; Visit Provider Surgery Vascular Surgery | DX: Z13.89 Encounter for screening for other disorder (principal) ==

== ENCOUNTER 2021-10-06 15:12 | Emergency (ER) | payer MEDICARE, SELFPAY ==
[2021-10-06 16:03] VITALS: BP 147/66; PULSE 78; RESP 16; TEMP 37.1; O2SAT 94
== END 2021-10-06 17:13 | disposition left against medical advice (07) ==
PROVIDERS: Emergency Provider Emergency Medicine; PCP Physician Assistant
DX: R53.83 Other fatigue (principal); K59.00 Constipation, unspecified; F17.200 Nicotine dependence, unspecified, uncomplicated; Z98.890 Other specified postprocedural states; I10 Essential (primary) hypertension; E78.5 Hyperlipidemia, unspecified; Z85.118 Personal history of other malignant neoplasm of bronchus and lung; Z95.1 Presence of aortocoronary bypass graft
CPT/HCPCS: 99281

== ENCOUNTER 2021-10-07 11:07 | Inpatient (IN) | payer OTHER, MEDICARE, SELFPAY ==
--- NOTE | ~2021-10-07 | CT_ITS ---
EXAMINATION: CT ANGIOGRAM OF THE CHEST WITH AND WITHOUT CONTRAST (CT PULMONARY ANGIOGRAM FOR PE) CLINICAL INFORMATION: Reason for Exam SOB, recent surgery COMPARISON: 04/19/2021 TECHNIQUE: Prior to contrast administration, noncontrast localization images were obtained. Subsequently, multidetector volumetric imaging was performed from the thoracic inlet to below the diaphragms following the administration of 65 mL Omnipaque 350 intravenous contrast. No contrast reaction reported Sagittal, coronal, and MIP oblique sagittal reformatted images were obtained on the CT workstation, uploaded to PACS, and reviewed. This CT examination was performed using dose optimization techniques as appropriate, variously including the following: *Automated exposure control *Adjustment of mA and/or kV according to patient size (this includes techniques or standardized protocols for targeted exams where dose is matched to indication/reason for exam; i.e. extremities or head) *Use of iterative reconstruction technique Total exam dose-length product 195 mGy-cm FINDINGS: QUALITY OF STUDY/CONTRAST BOLUS: Satisfactory. PULMONARY ARTERIES: No central or segmental pulmonary emboli. THORACIC AORTA: Aorta is atherosclerotic. No aneurysm or dissection. LUNG: Interval right upper lobectomy. Severe emphysema. Diffuse mild bronchial wall thickening reflective of chronic bronchitis. There are patchy opacities in the left lower lobe. PLEURA: No pleural effusion or pneumothorax. MEDIASTINUM: Mild cardiomegaly. No pericardial effusion. Stable shotty external lymph nodes. No evidence of septal bowing or right heart strain. Triple vessel coronary calcifications. CHEST WALL/AXILLA: No axillary or internal mammary lymphadenopathy. OSSEOUS STRUCTURES: No acute or suspicious osseous abnormality. UPPER ABDOMEN: Unremarkable. No reflux of contrast into the hepatic veins to suggest elevated right heart pressures. CT/CT angio chest PE protocol IMPRESSION: * No pulmonary embolism. * No aortic aneurysm or dissection. * Interval right upper lobectomy. * Severe emphysema and chronic bronchitis. * Patchy opacities in the left lower lobe suggest a mild pneumonitis/infectious infiltrate. * Triple vessel coronary calcifications. VTE: negative
[2021-10-07 11:12] VITALS: BP 134/50; PULSE 68; RESP 16; TEMP 36.7; O2SAT 99; BMI 18.1
--- NOTE | 2021-10-07 11:15 | ED_ITS ---
HPI - General Adult General Chief complaint: Dyspnea Stated complaint: Pneumonia O2 Low Time Seen by Provider: 10/07/21 11:15 Source: patient and family (daughter) Mode of arrival: ambulatory Limitations: no limitations History of Present Illness HPI narrative: Patient is a 76 year old male presenting to the emergency department today for evaluation. Patient's daughter states that the patient had a right upper lobe lobectomy secondary to lung cancer. States that the patient caught pneumonia and was admitted for 3 days at [facility], then discharged home with ABX. States that on the last day of his ABX, he spiked a fever and still hasn't felt better since his first hospitalization. Patient states that his last chemo treatment was [address] Smith called from Cardiology and stated the patient was 84% on room air and tachycardic so he was sending him down for evaluation. Patient denies any dizziness, lightheadedness, abdominal pain, nausea, vomiting, fever, chills, blurry vision, double vision, loss of vision, chest pain, back pain, night sweats, pain with urination, increased urinary frequency, increased urinary urgency, blood in his urine or stool, syncope or a near syncopal episode, recent trauma or falls, bowel incontinence, bladder incontinence, bowel retention, bladder retention, or any other complaints at this time. Onset (ago): day(s) Severity: mild Severity scale (1-10): 1 Relieving factors: none Exacerbating factors: none Associated symptoms: cough, shortness of breath and weakness Treatments prior to arrival: none Related Data Home Medications Medication Instructions Recorded Confirmed aspirin 81 mg chewable tablet 81 mg PO DAILY 05/27/21 10/07/21 ascorbate calcium (vitamin C) 500 500 mg PO DAILY 06/11/21 10/07/21 mg tablet cholecalciferol (vitamin D3) 25 25 mcg PO DAILY 06/11/21 10/07/21 mcg (1,000 unit) capsule ferrous sulfate 324 mg (65 mg 324 mg PO DAILY 06/11/21 10/07/21 iron) tablet,delayed release albuterol sulfate 90 mcg/actuation 2 puff inhalation Q4-6H PRN 10/07/21 10/07/21 aerosol inhaler wheezing docusate sodium 50 mg capsule 50 mg PO BID 10/07/21 10/07/21 folic acid 1 mg tablet 1 mg PO DAILY 10/07/21 10/07/21 lactulose 10 gram/15 mL oral 30 ml PO DAILY PRN Constipation 10/07/21 10/07/21 solution nystatin 100,000 unit/mL oral 5 ml PO QID 10/07/21 10/07/21 suspension polyethylene glycol 3350 17 17 g PO DAILY 10/07/21 10/07/21 gram/dose oral powder (Miralax) Previous Rx's Medication Instructions Recorded allopurinol 100 mg tablet 100 mg PO DAILY 90 days #90 tabs 06/21/21 pyridoxine (vitamin B6) 100 mg 100 mg PO DAILY 90 days #90 tabs 07/22/21 tablet metoprolol succinate 100 mg 100 mg PO DAILY #90 tabs 08/02/21 tablet,extended release 24 hr atorvastatin 80 mg tablet 80 mg PO BEDTIME 90 days #90 tabs 08/06/21 amlodipine 5 mg tablet 5 mg PO DAILY #90 tabs 10/07/21 Allergies Allergy/AdvReac Type Severity Reaction Status Date / Time No Known Allergies Allergy Verified 09/10/21 08:54 [No Known Allergies*] Review of Systems Constitutional: Constitutional: Reports no additional constitutional complaints, Denies chills, Denies fever(s) and Denies night sweats Eyes: Eyes: Reports no additional eye complaints, Denies blurry vision, Denies change in vision, Denies diplopia, Denies eye discharge, Denies loss of vision and Denies eye pain ENT: Denies dizziness Cardiovascular: Cardiovascular: Reports no additional cardiovascular complaints, Denies chest pain, Denies lightheadedness, Denies Loss of Consciousness and Reports dyspnea Respiratory: Respiratory: Reports no additional respiratory complaints and Reports dyspnea Gastrointestinal: Gastrointestinal: Reports no additional gastrointestinal complaints, Denies abdominal pain, Denies melena, Denies hematochezia, Denies change in bowel habits and Denies change in stool character Genitourinary: Genitourinary: Reports no additional male genitourinary complaints, Denies hematuria, Denies oliguria, Denies difficulty urinating, Denies dysuria, Denies urinary frequency, Denies urinary hesitancy, Denies urin luis a incontinence and Denies urinary urgency Musculoskeletal: Musculoskeletal: Reports no additional musculoskeletal complaints, Denies numbness and Denies tingling Neurologic: Denies dizziness, Denies loss of vision, Denies numbness and Denies tingling Psychiatric: Psychiatric: Reports no additional psychiatric complaints Endocrine: Endocrine: Reports no additional endocrine complaints Hematologic/Lymphatic: Hematologic/Lymphatic: Reports no additional hematologic/lymphatic complaints Allergic/Immunologic: Allergic/Immunologic: Reports no additional allergic/immunologic complaints [facility] Past Medical History Attestation statement: The following information was validated with the patient. Source: old records reviewed Medical History Anemia Carotid artery occlusion Cigarette smoker Coronary artery disease High cholesterol HTN (hypertension) Kidney stone Lung cancer (~2021) Pneumothorax after biopsy (~2021) Surgical History History of bronchoscopy (~2021) History of CEA (carotid endarterectomy) (~2018) History of chest tube placement (~2021) History of colonoscopy (~2020) History of cystoscopy (~2020) History of esophagogastroduodenoscopy (EGD) (~2020) History of lithotripsy (~2002) History of lung biopsy (~2021) Hx of CABG (~2018) Social History Social History Household Members: None Housing: House Do you presently have visiting nurse or other home services: No Alcohol intake: never Patient Tobacco Use Status: Current everyday Tobacco user Tobacco use type: Cigarette Cigarettes Per Day: 5 Second Hand Smoke Exposure: No Advance Directives: Yes Advance Directives Information Provided: Yes Advance Directives on File: No Advance Directives Date on File: 05/28/21 service: Yes Current occupational status: retired Physical Exam ED Vital Signs: Vital Signs - 24 hr 10/07/21 11:12 10/07/21 12:28 Temperature 98.1 F 97.8 F Pulse Rate 68 75 Respiratory Rate 16 20 Blood Pressure 134/50 L 126/60 Pulse Oximetry 99 98 Oxygen Delivery Method Room Air Room Air BMI result Body Mass Index 18.1 Const General: cooperative, no acute distress, alert and awake Nutritional Appearance: well nourished Orientation/consciousness: patient oriented x3 Limitations: no limitations HENMT Head: Yes normal to inspection and Yes atraumatic Ears: hearing grossly normal bilaterally and external ears normal General nose exam: Normal external nose present, no nasal discharge noted and no epistaxis Face and sinus: Yes normal facial exam, No abrasion and No laceration Mouth: Normal oral and palatal mucosa present, no drooling and no muffled voice Eyes General: appearance normal, both eyes and all related structures Periorbital: periorbital findings normal Eyelids: Yes eyelids normal Conjunctivae: conjunctivae normal Pupils: Equal, round and reactive pupils present EOM: EOMs intact bilaterally Neck Neck: Yes normal visual inspection, Yes full ROM and Yes no lymphadenopathy Chest Chest palpation & inspection: normal inspection of the chest Resp Effort & Inspection: normal respiratory effort and able to speak in complete sentences Auscultation: other (no lung sounds over right upper lobe, clear to other vyas) Cardio Rate: regular rate Rhythm: regular rhythm GI Inspection: Yes normal to inspection Neuro General: patient oriented x3 and moves all extremities Cranial nerves: Yes Equal, round and reactive pupils present Cognition (Neuro): normal cognition Motor exam (neuro): 5/5 motor strength present throughout Sensory Exam: Normal double simultaneous stimulation for sensation Coordination: [id number] test normal Extrem General: Yes normal to inspection, Yes full ROM and Yes capillary refill normal Psych Appearance: grossly normal Mental Status: mental status grossly normal Affect: normal affect Attitude: cooperative Thought process: Normal thought process present Thought content: Normal thought content present Insight: Good insight present (Psych) Medical Decision Making [facility] Narrative Medical decision making narrative: Patient is a 76 year old male with a history of COPD and lung cancer, presenting to the emergency department today for an evaluation. Patient's physical exam was unremarkable. Patient's blood work showed leukopenia and anemia. Patient's EKG was unremarkable. Patient's chest CT showed a lower left pneumonia. I did not consider the patient to be septic or to have the diagnosis of sepsis. Patient was given IV Cefepime. I explained my physical exam findings as well as all test results to the patient and the patient's daughter. I answered all questions asked by the patient and the patient's daughter. I explained to the patient and his daughter that I would be more comfortable if the patient was admitted to continue receiving IV antibiotics. I spoke to Dr. Giang, who agreed to hospital admission. Patient and the patient's daughter verbalized agreement and understanding with this treatment plan and admission. Differential Diagnosis Differential Diagnosis: pnuemonia, lung cancer Medical Records Medical records reviewed: Yes I reviewed the patient's medical records. Lab Data Lab results reviewed: Yes I reviewed the patient's lab results. Result diagrams: 10/07/21 11:47 10/07/21 11:47 Labs: Lab Results 10/07/21 10/07/21 10/07/21 Range/Units 11:16 11:47 11:47 WBC 3.5 L (4.8-10.8) X10*3/uL RBC 2.54 L D (4.60-5.80) X10*6/uL Hgb 8.0 L D (14.0-18.0) g/dl Hct 24.1 L D (42.0-52.0) % MCV 94.9 (80.0-98.0) fL MCH 31.5 (27.0-33.0) pg MCHC 33.2 (31.0-36.0) g/dl RDW 13.9 (11.0-16.0) % Plt Count 282 (160-400) X10*3/uL MPV 10.8 (9.4-12.4) fL Immature Gran % (Auto) 1.7 H (0.0-0.4) % Neut % (Auto) 60.0 (45-73) % Lymph % (Auto) 22.4 (20-40) % [place] % (Auto) 15.6 H (2-11) % Eos % (Auto) 0.3 (0-4) % Baso % (Auto) 0.0 (0-2) % Lymph # (Auto) 0.8 L (1.2-4.9) X10*3/uL [place] # (Auto) 0.6 (0.1-1.2) X10*3/uL Eos # (Auto) 0.0 (0.0-0.4) X10*3/uL Baso # (Auto) 0.0 (0.0-0.2) X10*3/uL Abs Immat Gran (auto) 0.06 H (0.00-0.03) X10*3/uL Absolute Neuts (auto) 2.1 (2.0-8.3) x10*3/uL Absolute Nucleated RBC 0.000 (0.0-0.012) X10*3/uL Nucleated RBC % (auto) 0.0 (0.0-0.2) /100WBC VBG pH (7.32-7.43) VBG pCO2 mmHg VBG pO2 mmHg VBG HCO3 (22-26) mmol/L VBG O2 Saturation % VBG Base Excess mmol/L Sodium 137 (135-145) mmol/L Potassium 3.9 (3.3-5.1) mmol/L Chloride 112 H (96-108) mmol/L Carbon Dioxide 15 L (22-29) mmol/L Anion Gap 14 (12-20) BUN 16 (9-16) mg/dL Creatinine 1.31 (0.5-1.4) mg/dL Estim Creat Clear Calc 37.8 Estimated GFR 53 Random Glucose 88 (60-115) mg/dL Lactic Acid 1.5 (0.5-2.0) mmol/L Calcium 8.4 D (8.4-10.2) mg/dL Magnesium 1.6 (1.6-2.6) mg/dL Total Bilirubin 0.4 (0.0-1.0) mg/dL AST 64 H (5-37) U/L ALT 49 H (0-40) U/L Alkaline Phosphatase 113 (39-117) U/L Troponin I High Sens (<3.5-35.0) ng/L Total Protein 6.8 (6.5-8.0) g/dL Albumin 3.1 L D (3.5-5.0) g/dL Urine Color Urine Appearance Urine pH (5.0-8.0) Ur Specific [place] (1.005-1.025) Urine Protein (NEG-TRACE) MG/DL Urine Glucose (UA) (NEG) MG/DL Urine Ketones (NEG) MG/DL Urine Blood (NEG) Urine Nitrite (NEG) Ur Leukocyte Esterase (NEG) Urine RBC (0) /HPF Urine WBC (0-4) /HPF Ur Squamous Epith Cells /LPF Urine Bacteria /LPF Hyaline Casts /LPF Granular Casts /LPF COVID-19 (TANISHA) (Negative) COVID-19 Clin Com Influenza Type A (ROSALIO) (Negative) Influenza Type B (ROSALIO) (Negative) Influenza A & B Note Blood Type Antibody Screen 10/07/21 10/07/21 10/07/21 Range/Units 11:47 11:49 11:49 WBC (4.8-10.8) X10*3/uL RBC (4.60-5.80) X10*6/uL Hgb (14.0-18.0) g/dl Hct (42.0-52.0) % MCV (80.0-98.0) fL MCH (27.0-33.0) pg MCHC (31.0-36.0) g/dl RDW (11.0-16.0) % Plt Count (160-400) X10*3/uL MPV (9.4-12.4) fL Immature Gran % (Auto) (0.0-0.4) % Neut % (Auto) (45-73) % Lymph % (Auto) (20-40) % [place] % (Auto) (2-11) % Eos % (Auto) (0-4) % Baso % (Auto) (0-2) % Lymph # (Auto) (1.2-4.9) X10*3/uL [place] # (Auto) (0.1-1.2) X10*3/uL Eos # (Auto) (0.0-0.4) X10*3/uL Baso # (Auto) (0.0-0.2) X10*3/uL Abs Immat Gran (auto) (0.00-0.03) X10*3/uL Absolute Neuts (auto) (2.0-8.3) x10*3/uL Absolute Nucleated RBC (0.0-0.012) X10*3/uL Nucleated RBC % (auto) (0.0-0.2) /100WBC VBG pH (7.32-7.43) VBG pCO2 mmHg VBG pO2 mmHg VBG HCO3 (22-26) mmol/L VBG O2 Saturation % VBG Base Excess mmol/L Sodium (135-145) mmol/L Potassium (3.3-5.1) mmol/L Chloride (96-108) mmol/L Carbon Dioxide (22-29) mmol/L Anion Gap (12-20) BUN (9-16) mg/dL Creatinine (0.5-1.4) mg/dL Estim Creat Clear Calc Estimated GFR Random Glucose (60-115) mg/dL Lactic Acid (0.5-2.0) mmol/L Calcium (8.4-10.2) mg/dL Magnesium (1.6-2.6) mg/dL Total Bilirubin (0.0-1.0) mg/dL AST (5-37) U/L ALT (0-40) U/L Alkaline Phosphatase (39-117) U/L Troponin I High Sens 26.3 (<3.5-35.0) ng/L Total Protein (6.5-8.0) g/dL Albumin (3.5-5.0) g/dL Urine Color Urine Appearance Urine pH (5.0-8.0) Ur Specific [place] (1.005-1.025) Urine Protein (NEG-TRACE) MG/DL Urine Glucose (UA) (NEG) MG/DL Urine Ketones (NEG) MG/DL Urine Blood (NEG) Urine Nitrite (NEG) Ur Leukocyte Esterase (NEG) Urine RBC (0) /HPF Urine WBC (0-4) /HPF Ur Squamous Epith Cells /LPF Urine Bacteria /LPF Hyaline Casts /LPF Granular Casts /LPF COVID-19 (TANISHA) Negative (Negative) COVID-19 Clin Com See Note Influenza Type A (ROSALIO) Negative (Negative) Influenza Type B (ROSALIO) Negative (Negative) Influenza A & B Note See Note Blood Type Antibody Screen 10/07/21 10/07/21 10/07/21 Range/Units 12:20 12:42 13:14 WBC (4.8-10.8) X10*3/uL RBC (4.60-5.80) X10*6/uL Hgb (14.0-18.0) g/dl Hct (42.0-52.0) % MCV (80.0-98.0) fL MCH (27.0-33.0) pg MCHC (31.0-36.0) g/dl RDW (11.0-16.0) % Plt Count (160-400) X10*3/uL MPV (9.4-12.4) fL Immature Gran % (Auto) (0.0-0.4) % Neut % (Auto) (45-73) % Lymph % (Auto) (20-40) % [place] % (Auto) (2-11) % Eos % (Auto) (0-4) % Baso % (Auto) (0-2) % Lymph # (Auto) (1.2-4.9) X10*3/uL [place] # (Auto) (0.1-1.2) X10*3/uL Eos # (Auto) (0.0-0.4) X10*3/uL Baso # (Auto) (0.0-0.2) X10*3/uL Abs Immat Gran (auto) (0.00-0.03) X10*3/uL Absolute Neuts (auto) (2.0-8.3) x10*3/uL Absolute Nucleated RBC (0.0-0.012) X10*3/uL Nucleated RBC % (auto) (0.0-0.2) /100WBC VBG pH 7.36 (7.32-7.43) VBG pCO2 29 mmHg VBG pO2 50 mmHg VBG HCO3 17 L (22-26) mmol/L VBG O2 Saturation 80.0 % VBG Base Excess -7.2 mmol/L Sodium (135-145) mmol/L Potassium (3.3-5.1) mmol/L Chloride (96-108) mmol/L Carbon Dioxide (22-29) mmol/L Anion Gap (12-20) BUN (9-16) mg/dL Creatinine (0.5-1.4) mg/dL Estim Creat Clear Calc Estimated GFR Random Glucose (60-115) mg/dL Lactic Acid (0.5-2.0) mmol/L Calcium (8.4-10.2) mg/dL Magnesium (1.6-2.6) mg/dL Total Bilirubin (0.0-1.0) mg/dL AST (5-37) U/L ALT (0-40) U/L Alkaline Phosphatase (39-117) U/L Troponin I High Sens (<3.5-35.0) ng/L Total Protein (6.5-8.0) g/dL Albumin (3.5-5.0) g/dL Urine Color YELLOW Urine Appearance CLEAR Urine pH 6.0 (5.0-8.0) Ur Specific [place] 1.025 (1.005-1.025) Urine Protein 2+ H (NEG-TRACE) MG/DL Urine Glucose (UA) NEG (NEG) MG/DL Urine Ketones NEG (NEG) MG/DL Urine Blood TRACE (NEG) Urine Nitrite NEG (NEG) Ur Leukocyte Esterase NEG (NEG) Urine RBC 0-2 (0) /HPF Urine WBC 0 (0-4) /HPF Ur Squamous Epith Cells TRACE /LPF Urine Bacteria NONE /LPF Hyaline Casts 0-2 /LPF Granular Casts 0-2 /LPF COVID-19 (TANISHA) (Negative) COVID-19 Clin Com Influenza Type A (ROSALIO) (Negative) Influenza Type B (ROSALIO) (Negative) Influenza A & B Note Blood Type O Positive Antibody Screen NEGATIVE Imaging Data CT scan - chest: Attestation: I personally reviewed and interpreted this imaging study as follows: My impression: Left sided pneumonia. Radiologist's impression: EXAMINATION: CT ANGIOGRAM OF THE CHEST WITH AND WITHOUT CONTRAST (CT PULMONARY ANGIOGRAM FOR PE) CLINICAL INFORMATION: Reason for Exam SOB, recent surgery COMPARISON: 04/19/2021? TECHNIQUE: Prior to contrast administration, noncontrast localization images were obtained. ? Subsequently, multidetector volumetric imaging was performed from the thoracic inlet to below the diaphragms following the administration of 65 mL Omnipaque 350 intravenous contrast. No contrast reaction reported Sagittal, coronal, and MIP oblique sagittal reformatted images were obtained on the CT workstation, uploaded to PACS, and reviewed. This CT examination was performed using dose optimization techniques as appropriate, variously including the following: *Automated exposure control *Adjustment of mA and/or kV according to patient size (this includes techniques or standardized protocols for targeted exams where dose is matched to indication/reason for exam; i.e. extremities or head) *Use of iterative reconstruction technique Total exam dose-length product 195 mGy-cm FINDINGS: QUALITY OF STUDY/CONTRAST BOLUS: Satisfactory. PULMONARY ARTERIES: No central or segmental pulmonary emboli.? THORACIC AORTA: Aorta is atherosclerotic. No aneurysm or dissection. LUNG: Interval right upper lobectomy. Severe emphysema. Diffuse mild bronchial wall thickening reflective of chronic bronchitis. There are patchy opacities in the left lower lobe. PLEURA: No pleural effusion or pneumothorax. MEDIASTINUM: Mild cardiomegaly. No pericardial effusion. Stable shotty external lymph nodes.? No evidence of septal bowing or right heart strain. Triple vessel coronary calcifications. CHEST WALL/AXILLA: No axillary or internal mammary lymphadenopathy. OSSEOUS STRUCTURES: No acute or suspicious osseous abnormality.? UPPER ABDOMEN: Unremarkable.? No reflux of contrast into the hepatic veins to suggest elevated right heart pressures. CT/CT angio chest PE protocol IMPRESSION: *? No pulmonary embolism. *? No aortic aneurysm or dissection. *? Interval right upper lobectomy. *? Severe emphysema and chronic bronchitis. *? Patchy opacities in the left lower lobe suggest a mild pneumonitis/infectious infiltrate. *? Triple vessel coronary calcifications. ? VTE: negative Dictated By: Martin Bryant MD Signed By: Electronically signed by Martin Bryant MD DD/ [id number] ECG Data Attestation: I personally reviewed and interpreted this ECG as follows: Prior ECG tracings: not available for review Interpretation: Vent. Rate: 074 BPM ? ? Atrial Rate: 074 BPM P-R Int: 216 ms? QRS Dur: 078 ms QT Int: 380 ms ? ? ? P-R-T Axes: 000 023 066 degrees QTc Int: 421 ms ? Sinus rhythm with 1st degree A-V block with occasional Premature ventricular complexes Nonspecific T wave abnormality Abnormal ECG When compared with ECG of 27-MAY-2021 10:10, Premature ventricular complexes are now Present [id number]/ [id number] Critical Care Time Critical Care Time Critical Care Time: Yes Total Critical Care Time: 30 Attestation: I spent 30 minutes of Critical Care Time with this patient. This does not include time spent on separately reported billable procedures. Discharge Plan Discharge Clinical Impression: Pneumonia, Anemia, Lung cancer Patient Disposition: Admitted As Inpatient
--- NOTE | 2021-10-07 11:15 | ECG_ITS ---
Test Reason : shortness of breath Blood Pressure : / mmHG Vent. Rate : 074 BPM Atrial Rate : 074 BPM P-R Int : 216 ms QRS Dur : 078 ms QT Int : 380 ms P-R-T Axes : 000 023 066 degrees QTc Int : 421 ms Artifact in tracing Sinus rhythm with 1st degree A-V block Nonspecific T wave abnormality Borderline ECG When compared with ECG of 27-MAY-2021 10:10, No significant changes seen Referred By: Karley Rivera Electronically Signed By:MICAH BARRAGAN
[2021-10-07] MEDS: cefEPime HCl 2 GM in 0.9 % Sodium Chloride 50 ML IV (11:55)
[2021-10-07 11:56] LABS: MANUAL DIFF FLAG NO
[2021-10-07 11:59] LABS: Eosinophils Percent Auto 0.3 % (0-4); Hematocrit 24.1 % (42.0-52.0); Imm Gran Abs Auto 0.06 X10*3/uL (0.00-0.03); Imm Gran Pct Auto 1.7 % (0.0-0.4); Lymphocytes Absolute Auto 0.8 X10*3/uL (1.2-4.9); Lymphocytes Percent Auto 22.4 % (20-40); Mean Corpuscular HGB Conc 33.2 g/dl (31.0-36.0); Mean Corpuscular Hemoglobin 31.5 pg (27.0-33.0); Mean Corpuscular Volume 94.9 fL (80.0-98.0); Mean Platelet Volume 10.8 fL (9.4-12.4); Monocytes Absolute Auto 0.6 X10*3/uL (0.1-1.2); Monocytes Percent Auto 15.6 % (2-11); Neutrophils Absolute Auto 2.1 x10*3/uL (2.0-8.3); Platelet Count 282 X10*3/uL (160-400); Red Blood Count 2.54 X10*6/uL (4.60-5.80); Red Cell Distribution Width 13.9 % (11.0-16.0); White Blood Count 3.5 X10*3/uL (4.8-10.8)
[2021-10-07 12:10] LABS: Lactic Acid 1.5 mmol/L (0.5-2.0)
[2021-10-07 12:14] LABS: Alanine Aminotransferase 49 U/L (0-40); Albumin Level 3.1 g/dL (3.5-5.0); Alkaline Phosphatase 113 U/L (39-117); Anion Gap 14 (12-20); Aspartate Amino Transferase 64 U/L (5-37); Bilirubin Total 0.4 mg/dL (0.0-1.0); Blood Urea Nitrogen 16 mg/dL (9-16); Calcium 8.4 mg/dL (8.4-10.2); Carbon Dioxide 15 mmol/L (22-29); Chloride 112 mmol/L (96-108); Creatinine Clr Calc Pharmacy 37.8; Estimated Glomerular Filt Rate 53; Glucose Random 88 mg/dL (60-115); Magnesium 1.6 mg/dL (1.6-2.6); Potassium 3.9 mmol/L (3.3-5.1); Sodium 137 mmol/L (135-145); Total Protein 6.8 g/dL (6.5-8.0)
[2021-10-07 12:17] LABS: Influenza A Negative (Negative); Influenza B2 Negative (Negative)
[2021-10-07 12:18] LABS: COVID-19 Test Negative (Negative); IDNOW Serial# 16C4AD1C
[2021-10-07 12:20] LABS: Troponin-I High Sensitivity 26.3 ng/L (<3.5-35.0)
[2021-10-07 12:28] VITALS: BP 126/60; PULSE 75; RESP 20; TEMP 36.6; O2SAT 98
[2021-10-07 12:53] LABS: Appearance Urine CLEAR; Color Urine YELLOW; Glucose Urine UA NEG (NEG); Leukocyte Esterase Urine NEG (NEG); Nitrite Urine NEG (NEG); Specific Gravity - Urine 1.025 (1.005-1.025); UACC Culture Trigger NO; Urine Blood TRACE (NEG); Urine Ketones NEG (NEG); Urine Protein 2+ MG/DL (NEG-TRACE)
[2021-10-07 13:06] LABS: Granular Casts Urine 0-2 /LPF; Hyaline Casts Urine 0-2 /LPF; RBC Urine 0-2 /HPF (0); Squamous Epithelial Cell Urine TRACE /LPF; WBC Urine 0 /HPF (0-4)
[2021-10-07 13:18] LABS: Venous Blood Gas Refer to POC result
[2021-10-07 13:18] LABS: VBG Base Excess -7.2 mmol/L; VBG HCO3 17 mmol/L (22-26); VBG pCO2 29 mmHg; VBG pH 7.36 (7.32-7.43); VBG pO2 50 mmHg
[2021-10-07] MEDS: iohexoL 350 MG/ML 100 ML INFUS..BTL IV (14:07)
--- NOTE | 2021-10-07 16:25 | PHA.PROG ---
Admission Date/Time: Indication: Resp Infection Weight in k.792 kg Adjusted body weight in K.7 kg [place] body weight in K.7 kg Obesity Dosing Indication % IBW: N/A Serum Creatinine - Last 168 Hours 10/07/21 11:47 Creatinine 1.31 Estimated CrCl and GFR - Last 168 Hours 10/07/21 11:47 Estim Creat Clear Calc 37.8 Estimated GFR 53 Vancomycin Loading Dose: 1250 mg (22.4 mg/kg) Current Vancomycin Dosing Regimen: 1000 mg (17.9 mg/kg)Q24H Date and Time for next Vancomycin Level to be drawn: 10/09/21 Pharmacist Comments on Vancomycin Plan: Patient scheduled to receive loading dose vancomycin 1250 mg 10/07 @ 1700. Maintenance dose vancomycin 1000 mg Q24H to begin 10/08 @ 1700. Expected AUC 538 with a trough of 16.6 Due to patient's age and reduced renal function, will get a random level prior to patient 3rd dose to access for safety. Pharmacy to monitor renal function daily. Gretchen Mclaughlin PharmD Vancomycin dosing will take advantage of [employer] as a clinical decision support tool that uses Bayesian modeling to calculate individual patient's pharmacokinetic parameters and forecast the patient's drug concentration time course with the target goal AUC 24 range of 400 - 600 mg/L/hr.
--- NOTE | 2021-10-07 16:28 | P.HPHOSP_ITS ---
History of Present Illness Date of Service: 10/07/21 Chief Complaint: Shortnss of breath ?76 year old male presenting to the emergency department today for evaluation. Patient's daughter states that the patient had a right upper lobe lobectomy secondary to lung cancer. States that the patient caught pneumonia and was admitted for 3 days at [facility], then discharged home with ABX. States that on the last day of his ABX, he spiked a fever and still hasn't felt better since his first hospitalization. Patient states that his last chemo treatment was [address] Smith called from Cardiology and stated the patient was 84% on room air and tachycardic so he was sending him down for evaluation.? ER Course Admitted through ER; given dose of cefepime. CTA demonstrated patchy opacities in left lower lobe consistent with pneumonitis/infiltrate. Also noted were severe emphysema however no pulmonary embolism. When daughter further queried, patient sent home on 3 days of azithromycin then developed fever to 101. He will be admitted for treatment of hospital-acquired pneumonia failed outpatient therapies Review of Systems Review of Systems: Denies chest pain Admit shortness of breath Denies nausea vomiting diarrhea Admits fever no chills [facility] Medical History Anemia Carotid artery occlusion Cigarette smoker Coronary artery disease High cholesterol HTN (hypertension) Kidney stone Lung cancer (~2021) Pneumothorax after biopsy (~2021) Surgical History History of bronchoscopy (~2021) History of CEA (carotid endarterectomy) (~2018) History of chest tube placement (~2021) History of colonoscopy (~2020) History of cystoscopy (~2020) History of esophagogastroduodenoscopy (EGD) (~2020) History of lithotripsy (~2002) History of lung biopsy (~2021) Hx of CABG (~2018) Social History Household Members: None Housing: House Do you presently have visiting nurse or other home services: No Alcohol intake: never Patient Tobacco Use Status: Current everyday Tobacco user Tobacco use type: Cigarette Cigarettes Per Day: 5 Second Hand Smoke Exposure: No Advance Directives: Yes Advance Directives Information Provided: Yes Advance Directives on File: No Advance Directives Date on File: 05/28/21 service: Yes Current occupational status: retired Meds Allergies Allergy/AdvReac Type Severity Reaction Status Date / Time No Known Allergies Allergy Verified 09/10/21 08:54 [No Known Allergies*] Active Medications: Current Medications Acetaminophen (Acetaminophen 325 Mg Tablet) 650 mg PO Q6H PRN PRN Reason: Pain, Mild (Pain Scale 1-3) Albuterol Sulfate (Albuterol Sulfate 90 Mcg 8 Gm Inhaler) 2 puff INHALE Q4H PRN PRN Reason: wheezing Allopurinol (Allopurinol 100 Mg Tablet) 100 mg PO DAILY [facility] Ascorbic Acid (Ascorbic Acid 500 Mg Tablet) 500 mg PO DAILY [facility] Aspirin (Aspirin 81 Mg Tab.Chew) 81 mg PO DAILY [facility] Atorvastatin Calcium (Atorvastatin Calcium 80 Mg Tablet) 80 mg PO BEDTIME [facility] Docusate Sodium (Docusate Sodium 100 Mg/10 Ml Liquid) 50 mg PO BID [facility] Enoxaparin Sodium (Enoxaparin Sodium 40 Mg/0.4 Ml Syringe) 40 mg SUBCUT Q24H [facility] Ferrous Sulfate (Ferrous Sulfate 324 Mg Tablet.Dr) 324 mg PO DAILY [facility] Folic Acid (Folic Acid 1 Mg Tablet) 1 mg PO DAILY [facility] Cefepime HCl 2 gm/ Sodium (Chloride) 50 mls @ 100 mls/hr IV Q12H [facility] Vancomycin HCl 1,250 mg/ (Sodium Chloride) 250 mls @ 166.667 mls/hr IV ONCE ONE Stop: 10/07/21 18:29 Vancomycin HCl 1,000 mg/ (Sodium Chloride) 270 mls @ 270 mls/hr IV Q24H [facility] Lactulose (Lactulose 20 Gm/30 Ml Solution) 20 gm PO DAILY PRN PRN Reason: Constipation Metoprolol Succinate (Metoprolol Succinate Er 100 Mg Tab.Er.24h) 100 mg PO DAILY [facility]; Protocol Ondansetron HCl (Ondansetron Hcl 4 Mg/2 Ml Vial) 4 mg IVPUSH Q8H PRN PRN Reason: Nausea and Vomiting Pharmacy Consult (Consult Rx Perform Med Rec) 1 each MISCELLANE ONCE PRN PRN Reason: Consult order Pharmacy Consult (Consult Rx Perform Med Rec) 1 each MISCELLANE ONCE PRN PRN Reason: Consult order Pharmacy Consult (Consult Rx Vancomycin Dosing) 1 each MISCELLANE DAILY PRN PRN Reason: Consult order Polyethylene Glycol (Polyethylene Glycol 3350 17 Gm Powd.Pack) 17 gm PO DAILY [facility] Pyridoxine HCl (Pyridoxine Hcl (Vitamin B6) 50 Mg Tablet) 100 mg PO DAILY [facility] Sodium Chloride (0.9 % Sodium Chloride Flush 3 Ml Syringe) 3 ml IVFLUSH QSHIFT [facility] Vitamin D (Cholecalciferol (Vitamin D3) 25 Mcg Tablet) 25 mcg PO DAILY [facility] Home Medications Medication Instructions Recorded Confirmed Last Taken Type aspirin 81 mg chewable tablet 81 mg PO DAILY 05/27/21 10/07/21 10/06/21 History ascorbate calcium (vitamin C) 500 500 mg PO DAILY 06/11/21 10/07/21 10/06/21 Hi story mg tablet cholecalciferol (vitamin D3) 25 25 mcg PO DAILY 06/11/21 10/07/21 10/06/21 H istory mcg (1,000 unit) capsule ferrous sulfate 324 mg (65 mg 324 mg PO DAILY 06/11/21 10/07/21 10/06/21 History iron) tablet,delayed release albuterol sulfate 90 mcg/actuation 2 puff inhalation Q4-6H PRN 10/07/21 10/07/21 Unknown History aerosol inhaler wheezing docusate sodium 50 mg capsule 50 mg PO BID 10/07/21 10/07/21 10/07/21 History folic acid 1 mg tablet 1 mg PO DAILY 10/07/21 10/07/21 10/06/21 History lactulose 10 gram/15 mL oral 30 ml PO DAILY PRN Constipation 10/07/21 10/07/21 Unknown History solution nystatin 100,000 unit/mL oral 5 ml PO QID 10/07/21 10/07/21 10/07/21 History suspension polyethylene glycol 3350 17 17 g PO DAILY 10/07/21 10/07/21 Unknown History gram/dose oral powder (Miralax) Physical Exam Vital Signs and Narrative: Vital Signs: Last Vital Signs Temp 97.8 F 10/07/21 12:28 Pulse 75 10/07/21 12:28 Resp 20 10/07/21 12:28 BP 126/60 10/07/21 12:28 Pulse Ox 98 10/07/21 12:28 O2 Del Method 10/07/21 12:28 BMI result Body Mass Index 18.1 Const: Other: Awake alert oriented x3 in no respiratory distress Resp: Other: Diminished bilaterally with scant end-expiratory crackles bilaterally. Minimal wheezing no rhonchi Cardio: Other: No S4; positive S1-S2; no S3 murmurs rubs or gallops GI: Other: Soft nontender nondistended normoactive bowel sounds Neuro: Other: Cranial nerves 2-12 grossly intact as tested. Motor is 5/5 all extremities. Sensation intact. Cognition appropriate Extrem: Other: No edema bilaterally Results Labs CBC and Chem 7: 10/07/21 11:47 10/07/21 11:47 Labs: Laboratory Results - last 24 hr 10/07/21 10/07/21 10/07/21 11:16 11:47 11:47 MCV 94.9 MCH 31.5 MCHC 33.2 RDW 13.9 Plt Count 282 MPV 10.8 Immature Gran % (Auto) 1.7 H Neut % (Auto) 60.0 Lymph % (Auto) 22.4 Anson % (Auto) 15.6 H Eos % (Auto) 0.3 Baso % (Auto) 0.0 Lymph # (Auto) 0.8 L Anson # (Auto) 0.6 Eos # (Auto) 0.0 Baso # (Auto) 0.0 Abs Immat Gran (auto) 0.06 H Absolute Neuts (auto) 2.1 Absolute Nucleated RBC 0.000 Nucleated RBC % (auto) 0.0 VBG pH VBG pCO2 VBG pO2 VBG HCO3 VBG O2 Saturation VBG Base Excess Anion Gap 14 Estim Creat Clear Calc 37.8 Estimated GFR 53 Random Glucose 88 Lactic Acid 1.5 Calcium 8.4 D Magnesium 1.6 Total Bilirubin 0.4 AST 64 H ALT 49 H Alkaline Phosphatase 113 Troponin I High Sens Total Protein 6.8 Albumin 3.1 L D Urine Color Urine Appearance Urine pH Ur Specific [place] Urine Protein Urine Glucose (UA) Urine Ketones Urine Blood Urine Nitrite Ur Leukocyte Esterase Urine RBC Urine WBC Ur Squamous Epith Cells Urine Bacteria Hyaline Casts Granular Casts COVID-19 (TANISHA) COVID-19 Clin Com Influenza Type A (ROSALIO) Influenza Type B (ROSALIO) Influenza A & B Note Blood Type Antibody Screen 10/07/21 10/07/21 10/07/21 11:47 11:49 11:49 MCV MCH MCHC RDW Plt Count MPV Immature Gran % (Auto) Neut % (Auto) Lymph % (Auto) Anson % (Auto) Eos % (Auto) Baso % (Auto) Lymph # (Auto) Anson # (Auto) Eos # (Auto) Baso # (Auto) Abs Immat Gran (auto) Absolute Neuts (auto) Absolute Nucleated RBC Nucleated RBC % (auto) VBG pH VBG pCO2 VBG pO2 VBG HCO3 VBG O2 Saturation VBG Base Excess Anion Gap Estim Creat Clear Calc Estimated GFR Random Glucose Lactic Acid Calcium Magnesium Total Bilirubin AST ALT Alkaline Phosphatase Troponin I High Sens 26.3 Total Protein Albumin Urine Color Urine Appearance Urine pH Ur Specific [place] Urine Protein Urine Glucose (UA) Urine Ketones Urine Blood Urine Nitrite Ur Leukocyte Esterase Urine RBC Urine WBC Ur Squamous Epith Cells Urine Bacteria Hyaline Casts Granular Casts COVID-19 (TANISHA) Negative COVID-19 Clin Com See Note Influenza Type A (ROSALIO) Negative Influenza Type B (ROSALIO) Negative Influenza A & B Note See Note Blood Type Antibody Screen 10/07/21 10/07/21 10/07/21 12:20 12:42 13:14 MCV MCH MCHC RDW Plt Count MPV Immature Gran % (Auto) Neut % (Auto) Lymph % (Auto) Anson % (Auto) Eos % (Auto) Baso % (Auto) Lymph # (Auto) Anson # (Auto) Eos # (Auto) Baso # (Auto) Abs Immat Gran (auto) Absolute Neuts (auto) Absolute Nucleated RBC Nucleated RBC % (auto) VBG pH 7.36 VBG pCO2 29 VBG pO2 50 VBG HCO3 17 L VBG O2 Saturation 80.0 VBG Base Excess -7.2 Anion Gap Estim Creat Clear Calc Estimated GFR Random Glucose Lactic Acid Calcium Magnesium Total Bilirubin AST ALT Alkaline Phosphatase Troponin I High Sens Total Protein Albumin Urine Color YELLOW Urine Appearance CLEAR Urine pH 6.0 Ur Specific [place] 1.025 Urine Protein 2+ H Urine Glucose (UA) NEG Urine Ketones NEG Urine Blood TRACE Urine Nitrite NEG Ur Leukocyte Esterase NEG Urine RBC 0-2 Urine WBC 0 Ur Squamous Epith Cells TRACE Urine Bacteria NONE Hyaline Casts 0-2 Granular Casts 0-2 COVID-19 (TANISHA) COVID-19 Clin Com Influenza Type A (ROSALIO) Influenza Type B (ROSALIO) Influenza A & B Note Blood Type O Positive Antibody Screen NEGATIVE Imaging Radiologist's Impressions: Impressions Chest CTA 10/07/21 14:05 IMPRESSION: * No pulmonary embolism. * No aortic aneurysm or dissection. * Interval right upper lobectomy. * Severe emphysema and chronic bronchitis. * Patchy opacities in the left lower lobe suggest a mild pneumonitis/infectious infiltrate. * Triple vessel coronary calcifications. VTE: negative Assessment and Plan (1) Pneumonia: Status: Acute (2) COPD (chronic obstructive pulmonary disease): Status: Acute (3) Lung cancer: Status: Acute (4) Coronary artery disease: Status: Acute (5) HTN (hypertension): Status: Acute (6) Anemia: Status: Acute Plan 76-year-old man status post right pneumonectomy for a moderately differentiated adenocarcinoma presents with shortness of breath fever and chills after recent hospitalization at [facility]. States he was hospitalized for 3 days for pneumonia and sent home on azithromycin. States after 3rd day of azithromycin developed worsening shortness of breath fever and chills which prompted return to [facility]. CTA done in the emergency room failed to demonstrate pulmonary embolism but did demonstrate patchy opacities in the left lower lobe c onsistent with infiltrate 1. Left lower lobe pneumonia (in backdrop of COPD) -IV cefepime and vancomycin to cover HAP -titrate O2 to maintain sats greater than equal to 90% -p.r.n. DuoNebs 2. Moderately differentiated adenocarcinoma of the lung -treatment as per 1 3. CAD -currently asymptomatic -continue ASA/beta-patricia -adjust as indicated 4. Hypertension -acceptable control on current therapies -adjust as indicated 5. Anemia -chronic; at baseline -follow daily CBC and transfuse for hemoglobin less than 7 DNR DNI Lovenox Patient will require at least 2 midnights going forward for IV antibiotics to treat hospital-acquired pneumonia which is failed outpatient therapies. This cannot be achieved in a lesser acute setting Quality Stroke Does the patient have a stroke diagnosis?: No VTE Prior VTE?: No VTE Risk Level:: Medical - moderate - high VTE Device Contraindication: Treatment Not Indicated VTE Drug Contraindication: N/A - Med Ordered
[2021-10-07 16:30] VITALS: BP 154/65; PULSE 79; RESP 18; TEMP 36.6; O2SAT 95
[2021-10-07] MEDS: vancomycin HCL 1,250 MG in 0.9 % Sodium Chloride 250 ML 166.67 MG IV (16:40)
[2021-10-07] MEDS: Enoxaparin Sodium 40 MG/0.4 ML SYRINGE SUBCUT (16:45)
[2021-10-07 20:26] VITALS: BP 123/60; PULSE 71; RESP 18; O2SAT 96
[2021-10-07] MEDS: Docusate Sodium 100 MG/10 ML LIQUID 50 MG PO (20:28)
[2021-10-07] MEDS: Atorvastatin Calcium 80 MG TABLET PO (20:28)
--- NOTE | 2021-10-07 20:39 | PC.NURSE ---
Report called to Overflow
[2021-10-08] VITALS (7 sets, daily range): BP systolic 111–140; BP diastolic 60–67; PULSE 67–87; RESP 12–20; TEMP 36.3–37.1; O2SAT 95–100
[2021-10-08] MEDS: 0.9 % Sodium Chloride Flush 3 ML SYRINGE IVFLUSH ×3 (00:45→19:47)
[2021-10-08] MEDS: cefEPime HCl 2 GM in 0.9 % Sodium Chloride 50 ML IV ×2 (00:45→12:39)
--- NOTE | 2021-10-08 04:51 | PC.NURSE ---
RESTING COMF,AMB TO BR,STEADY GAIT.LUNGS CLEAR/DIM,SAT 97% ON ROOM AIR.DENIES PAIN.CONTINUES ON IV ANTIBIOTICS.
[2021-10-08 06:22] LABS: Eosinophils Percent Auto 0.3 % (0-4); Hematocrit 21.8 % (42.0-52.0); Hemoglobin 7.4 g/dl (14.0-18.0); Imm Gran Abs Auto 0.05 X10*3/uL (0.00-0.03); Imm Gran Pct Auto 1.7 % (0.0-0.4); Lymphocytes Absolute Auto 0.9 X10*3/uL (1.2-4.9); Lymphocytes Percent Auto 31.4 % (20-40); MANUAL DIFF FLAG SCAN; Mean Corpuscular HGB Conc 33.9 g/dl (31.0-36.0); Mean Corpuscular Hemoglobin 31.4 pg (27.0-33.0); Mean Corpuscular Volume 92.4 fL (80.0-98.0); Mean Platelet Volume 10.6 fL (9.4-12.4); Monocytes Absolute Auto 0.6 X10*3/uL (0.1-1.2); Monocytes Percent Auto 20.3 % (2-11); Neutrophils Absolute Auto 1.3 x10*3/uL (2.0-8.3); Neutrophils Percent Auto 46.3 % (45-73); Platelet Count 286 X10*3/uL (160-400); Red Blood Count 2.36 X10*6/uL (4.60-5.80); Red Cell Distribution Width 14.1 % (11.0-16.0); SCAN SMEAR FLAG 1; White Blood Count 2.9 X10*3/uL (4.8-10.8)
[2021-10-08 06:44] LABS: Alanine Aminotransferase 40 U/L (0-40); Albumin Level 2.6 g/dL (3.5-5.0); Alkaline Phosphatase 99 U/L (39-117); Anion Gap 11 (12-20); Aspartate Amino Transferase 48 U/L (5-37); Bilirubin Total < 0.2 mg/dL (0.0-1.0); Blood Urea Nitrogen 14 mg/dL (9-16); Calcium 7.8 mg/dL (8.4-10.2); Carbon Dioxide 18 mmol/L (22-29); Chloride 113 mmol/L (96-108); Creatinine Clr Calc Pharmacy 44.2; Estimated Glomerular Filt Rate > 60; Glucose Fasting 88 mg/dL (60-99); Potassium 3.4 mmol/L (3.3-5.1); Sodium 139 mmol/L (135-145); Total Protein 5.7 g/dL (6.5-8.0)
[2021-10-08 06:48] LABS: SLIDE REVIEW VERIFIED
--- NOTE | 2021-10-08 07:20 | PHA.PROG ---
Vancomycin Dosing Addendum Indication: Pneumonia Weight in k.792 kg Adjusted body weight in K.7 kg [place] body weight in K.7 kg Obesity Dosing Indication % IBW: N/A Serum Creatinine - Last 168 Hours 10/07/21 10/08/21 11:47 06:05 Creatinine 1.31 1.12 Estimated CrCl and GFR - Last 168 Hours 10/07/21 10/08/21 11:47 06:05 Estim Creat Clear Calc 37.8 44.2 Estimated GFR 53 > 60 Vancomycin Loading Dose: 1250 mg (22.4 mg/kg) Current Vancomycin Dosing Regimen: 1000 mg (17.9 mg/kg)Q24H Date and Time for next Vancomycin Level to be drawn: 10/09/21 @ 1500 Pharmacist Comments on Vancomycin Plan: Patient's renal function is improving. Continue same regimen vancomycin 1000 mg Q24H. Expected AUC 474 with a trough of 16.3 Random level to be drawn prior to 3rd dose. Level drawn earlier to evaluate for safety to patient's age and reduce renal function. Pharmacy to monitor renal function daily. Gretchen Mclaughlin PharmD Vancomycin dosing will take advantage of [employer] as a clinical decision support tool that uses Bayesian modeling to calculate individual patient's pharmacokinetic parameters and forecast the patient's drug concentration time course with the target goal AUC 24 range of 400 - 600 mg/L/hr.
[2021-10-08] MEDS: Folic Acid 1 MG TABLET PO (08:54)
[2021-10-08] MEDS: Aspirin 81 MG TAB.CHEW PO (08:54)
[2021-10-08] MEDS: polyethylene glycoL 3350 17 GM POWD.PACK PO (08:55)
[2021-10-08] MEDS: Docusate Sodium 100 MG/10 ML LIQUID 50 MG PO ×2 (08:55→19:46)
[2021-10-08] MEDS: Ascorbic Acid 500 MG TABLET PO (08:55)
[2021-10-08] MEDS: Ferrous Sulfate 324 MG TABLET.DR PO (08:55)
[2021-10-08] MEDS: allopurinoL 100 MG TABLET PO (08:55)
[2021-10-08] MEDS: Cholecalciferol (Vitamin D3) 25 MCG TABLET PO (08:55)
[2021-10-08] MEDS: Metoprolol Succinate ER 100 MG TAB.ER.24H PO (08:55)
[2021-10-08] MEDS: Pyridoxine HCl (Vitamin B6) 50 MG TABLET 100 MG PO (09:34)
[2021-10-08] MEDS: Lactulose 20 GM/30 ML SOLUTION PO (12:39)
--- NOTE | 2021-10-08 13:15 | P.PNIM_ITS ---
Subjective Subjective Date of Service: 10/08/21 Review of Systems Denies chest pain Admit shortness of breath Denies nausea vomiting diarrhea Admits fever no chills Physical Exam Vital Signs: Vital Signs: Last Vital Signs Temp 97.3 F 10/08/21 11:52 Pulse 67 10/08/21 11:52 Resp 12 10/08/21 11:52 BP 137/65 10/08/21 11:52 Pulse Ox 100 10/08/21 11:52 O2 Del Method 10/08/21 11:52 BMI result Body Mass Index 18.1 Const: Other: Awake alert oriented x3 in no respiratory distress Resp: Other: Diminished bilaterally with scant end-expiratory crackles bilaterally. Minimal wheezing no rhonchi Cardio: Other: No S4; positive S1-S2; no S3 murmurs rubs or gallops GI: Other: Soft nontender nondistended normoactive bowel sounds Neuro: Other: Cranial nerves 2-12 grossly intact as tested. Motor is 5/5 all extremities. Sensation intact. Cognition appropriate Extrem: Other: No edema bilaterally Objective Data Active Medications Acetaminophen (Acetaminophen 325 Mg Tablet) 650 mg PO Q6H PRN PRN Reason: Pain, Mild (Pain Scale 1-3) Albuterol Sulfate (Albuterol Sulfate 90 Mcg 8 Gm Inhaler) 2 puff INHALE Q4H PRN PRN Reason: wheezing Albuterol/Ipratropium (Albuterol/Iprat 2.5/0.5mg 3 Ml Ampul.Neb) 3 ml INHALE Q4H PRN PRN Reason: Wheezing Allopurinol (Allopurinol 100 Mg Tablet) 100 mg PO DAILY [facility] Last Admin: 10/08/21 08:55 Dose: 100 mg Documented By: WOLFGANG Ascorbic Acid (Ascorbic Acid 500 Mg Tablet) 500 mg PO DAILY [facility] Last Admin: 10/08/21 08:55 Dose: 500 mg Documented By: WOLFGANG Aspirin (Aspirin 81 Mg Tab.Chew) 81 mg PO DAILY [facility] Last Admin: 10/08/21 08:54 Dose: 81 mg Documented By: WOLFGANG Atorvastatin Calcium (Atorvastatin Calcium 80 Mg Tablet) 80 mg PO BEDTIME [facility] Last Admin: 10/07/21 20:28 Dose: 80 mg Documented By: RIA Docusate Sodium (Docusate Sodium 100 Mg/10 Ml Liquid) 50 mg PO BID [facility] Last Admin: 10/08/21 08:55 Dose: 50 mg Documented By: WOLFGANG Enoxaparin Sodium (Enoxaparin Sodium 40 Mg/0.4 Ml Syringe) 40 mg SUBCUT Q24H [facility] Last Admin: 10/07/21 16:45 Dose: 40 mg Documented By: JD Ferrous Sulfate (Ferrous Sulfate 324 Mg Tablet.Dr) 324 mg PO DAILY [facility] Last Admin: 10/08/21 08:55 Dose: 324 mg Documented By: WOLFGANG Folic Acid (Folic Acid 1 Mg Tablet) 1 mg PO DAILY [facility] Last Admin: 10/08/21 08:54 Dose: 1 mg Documented By: WOLFGANG Cefepime HCl 2 gm/ Sodium (Chloride) 50 mls @ 100 mls/hr IV Q12H [facility] Last Admin: 10/08/21 12:39 Dose: 50 mls/hr Documented By: JAEL Vancomycin HCl 1,000 mg/ (Sodium Chloride) 270 mls @ 270 mls/hr IV Q24H [facility] Lactulose (Lactulose 20 Gm/30 Ml Solution) 20 gm PO DAILY PRN PRN Reason: Constipation Last Admin: 10/08/21 12:39 Dose: 20 gm Documented By: JAEL Metoprolol Succinate (Metoprolol Succinate Er 100 Mg Tab.Er.24h) 100 mg PO DAILY [facility]; Protocol Last Admin: 10/08/21 08:55 Dose: 100 mg Documented By: WOLFGANG Ondansetron HCl (Ondansetron Hcl 4 Mg/2 Ml Vial) 4 mg IVPUSH Q8H PRN PRN Reason: Nausea and Vomiting Pharmacy Consult (Consult Rx Perform Med Rec) 1 each MISCELLANE ONCE PRN PRN Reason: Consult order Pharmacy Consult (Consult Rx Perform Med Rec) 1 each MISCELLANE ONCE PRN PRN Reason: Consult order Pharmacy Consult (Consult Rx Vancomycin Dosing) 1 each MISCELLANE DAILY PRN PRN Reason: Consult order Polyethylene Glycol (Polyethylene Glycol 3350 17 Gm Powd.Pack) 17 gm PO DAILY [facility] Last Admin: 10/08/21 08:55 Dose: 17 gm Documented By: WOLFGANG Pyridoxine HCl (Pyridoxine Hcl (Vitamin B6) 50 Mg Tablet) 100 mg PO DAILY [facility] Last Admin: 10/08/21 09:34 Dose: 100 mg Documented By: WOLFGANG Sodium Chloride (0.9 % Sodium Chloride Flush 3 Ml Syringe) 3 ml IVFLUSH QSHIFT [facility] Last Admin: 10/08/21 09:37 Dose: Not Given Documented By: WOLFGANG Non-Admin Reason: flushed with 10ml Vitamin D (Cholecalciferol (Vitamin D3) 25 Mcg Tablet) 25 mcg PO DAILY [facility] Last Admin: 10/08/21 08:55 Dose: 25 mcg Documented By: WOLFGANG Labs CBC & Chem 7: 10/08/21 06:05 10/08/21 06:05 Labs: Laboratory Results - last 24 hr 10/07/21 10/08/21 10/08/21 13:14 06:05 06:05 MCV 92.4 MCH 31.4 MCHC 33.9 RDW 14.1 Plt Count 286 MPV 10.6 Immature Gran % (Auto) 1.7 H Neut % (Auto) 46.3 Lymph % (Auto) 31.4 Reagan % (Auto) 20.3 H Eos % (Auto) 0.3 Baso % (Auto) 0.0 Lymph # (Auto) 0.9 L Reagan # (Auto) 0.6 Eos # (Auto) 0.0 Baso # (Auto) 0.0 Abs Immat Gran (auto) 0.05 H Absolute Neuts (auto) 1.3 L Absolute Nucleated RBC 0.000 Nucleated RBC % (auto) 0.0 Smear Tech's Comments VERIFIED VBG pH 7.36 VBG pCO2 29 VBG pO2 50 VBG HCO3 17 L VBG O2 Saturation 80.0 VBG Base Excess -7.2 Anion Gap 11 L Estim Creat Clear Calc 44.2 Estimated GFR > 60 Fasting Glucose 88 Calcium 7.8 L D Total Bilirubin < 0.2 AST 48 H ALT 40 Alkaline Phosphatase 99 Total Protein 5.7 L Albumin 2.6 L Assessment and Plan (1) Pneumonia: Status: Acute (2) COPD (chronic obstructive pulmonary disease): Status: Acute (3) Lung cancer: Status: Acute (4) Coronary artery disease: Status: Acute (5) HTN (hypertension): Status: Acute (6) Anemia: Status: Acute Plan 76-year-old man status post right pneumonectomy for a moderately differentiated adenocarcinoma presents with shortness of breath fever and chills after recent hospitalization at [facility]. States he was hospitalized for 3 days for pneumonia and sent home on azithromycin. States after 3rd day of azithromycin developed worsening shortness of breath fever and chills which prompted return to [facility]. CTA done in the emergency room failed to demonstrate pulmonary embolism but did demonstrate patchy opacities in the left lower lobe consistent with infiltrate 1. Left lower lobe pneumonia (in backdrop of COPD) -IV cefepime/vancomycin to cover HAP(2) -titrate O2 to maintain sats greater than equal to 90% -p.r.n. Duo[place] 2. Moderately differentiated adenocarcinoma of the lung -treatment as per 1 3. CAD -currently asymptomatic -continue ASA/beta-patricia -adjust as indicated 4. Hypertension -acceptable control on current therapies -adjust as indicated 5. Anemia -chronic; at baseline -follow daily CBC and transfuse for hemoglobin less than 7 DNR DNI Lovenox Patient will require ongoing hospitalization for IV antibiotics for hospital- acquired pneumonia that has failed outpatient therapies Quality Stroke Does the patient have a stroke diagnosis?: No VTE Prior VTE?: No VTE Risk Level:: Medical - moderate - high VTE Device Contraindication: Treatment Not Indicated VTE Drug Contraindication: N/A - Med Ordered
[2021-10-08] MEDS: vancomycin HCL 1,000 MG in 0.9 % Sodium Chloride 250 ML 270 MG IV (17:33)
[2021-10-08] MEDS: Enoxaparin Sodium 40 MG/0.4 ML SYRINGE SUBCUT (17:33)
[2021-10-08] MEDS: Atorvastatin Calcium 80 MG TABLET PO (19:46)
[2021-10-09] MEDS: cefEPime HCl 2 GM in 0.9 % Sodium Chloride 50 ML IV ×2 (00:01→12:19)
[2021-10-09 03:20] VITALS: BP 124/58; PULSE 74; RESP 20; TEMP 36.7; O2SAT 99
[2021-10-09 06:46] LABS: MANUAL DIFF FLAG NO
[2021-10-09 06:48] LABS: Basophils Percent Auto 0.4 % (0-2); Eosinophils Percent Auto 0.9 % (0-4); Hemoglobin 7.5 g/dl (14.0-18.0); Imm Gran Abs Auto 0.03 X10*3/uL (0.00-0.03); Imm Gran Pct Auto 1.3 % (0.0-0.4); Lymphocytes Absolute Auto 0.8 X10*3/uL (1.2-4.9); Lymphocytes Percent Auto 33.3 % (20-40); Mean Corpuscular HGB Conc 34.1 g/dl (31.0-36.0); Mean Corpuscular Hemoglobin 31.3 pg (27.0-33.0); Mean Corpuscular Volume 91.7 fL (80.0-98.0); Mean Platelet Volume 10.8 fL (9.4-12.4); Monocytes Absolute Auto 0.4 X10*3/uL (0.1-1.2); Monocytes Percent Auto 16.2 % (2-11); Neutrophils Absolute Auto 1.1 x10*3/uL (2.0-8.3); Neutrophils Percent Auto 47.9 % (45-73); Platelet Count 309 X10*3/uL (160-400); Red Cell Distribution Width 13.9 % (11.0-16.0); SCAN SMEAR FLAG 1; White Blood Count 2.3 X10*3/uL (4.8-10.8)
[2021-10-09 07:07] LABS: Alanine Aminotransferase 43 U/L (0-40); Albumin Level 2.6 g/dL (3.5-5.0); Alkaline Phosphatase 102 U/L (39-117); Anion Gap 11 (12-20); Aspartate Amino Transferase 51 U/L (5-37); Bilirubin Total 0.2 mg/dL (0.0-1.0); Blood Urea Nitrogen 11 mg/dL (9-16); Calcium 7.9 mg/dL (8.4-10.2); Carbon Dioxide 19 mmol/L (22-29); Chloride 112 mmol/L (96-108); Estimated Glomerular Filt Rate > 60; Glucose Fasting 87 mg/dL (60-99); Potassium 3.5 mmol/L (3.3-5.1); Sodium 138 mmol/L (135-145); Total Protein 5.8 g/dL (6.5-8.0)
[2021-10-09 08:00] VITALS: BP 145/67; PULSE 74; RESP 18; TEMP 36.3
[2021-10-09] MEDS: Folic Acid 1 MG TABLET PO (09:11)
[2021-10-09] MEDS: Pyridoxine HCl (Vitamin B6) 50 MG TABLET 100 MG PO (09:11)
[2021-10-09] MEDS: Cholecalciferol (Vitamin D3) 25 MCG TABLET PO (09:12)
[2021-10-09] MEDS: Aspirin 81 MG TAB.CHEW PO (09:12)
[2021-10-09] MEDS: 0.9 % Sodium Chloride Flush 3 ML SYRINGE IVFLUSH ×2 (09:12→16:55)
[2021-10-09] MEDS: Ascorbic Acid 500 MG TABLET PO (09:12)
[2021-10-09] MEDS: Ferrous Sulfate 324 MG TABLET.DR PO (09:12)
[2021-10-09] MEDS: Metoprolol Succinate ER 100 MG TAB.ER.24H PO (09:12)
[2021-10-09] MEDS: allopurinoL 100 MG TABLET PO (09:12)
--- NOTE | 2021-10-09 11:14 | P.PNIM_ITS ---
Subjective Subjective Date of Service: 10/09/21 Interval History: No acute issues overnight; no respiratory distress on room Review of Systems Denies chest pain Admit shortness of breath Denies nausea vomiting diarrhea Admits fever no chills Physical Exam Vital Signs: Vital Signs: Last Vital Signs Temp 97.3 F 10/09/21 08:00 Pulse 74 10/09/21 08:00 Resp 18 10/09/21 08:00 BP 145/67 H 10/09/21 08:00 Pulse Ox 99 10/09/21 03:20 O2 Del Method 10/09/21 03:20 BMI result Body Mass Index 18.1 Const: Other: Awake alert oriented x3 in no respiratory distress Resp: Other: Diminished bilaterally with scant end-expiratory crackles bilaterally. Minimal wheezing no rhonchi Cardio: Other: No S4; positive S1-S2; no S3 murmurs rubs or gallops GI: Other: Soft nontender nondistended normoactive bowel sounds Neuro: Other: Cranial nerves 2-12 grossly intact as tested. Motor is 5/5 all extremities. Sensation intact. Cognition appropriate Extrem: Other: No edema bilaterally Objective Data Active Medications Acetaminophen (Acetaminophen 325 Mg Tablet) 650 mg PO Q6H PRN PRN Reason: Pain, Mild (Pain Scale 1-3) Albuterol Sulfate (Albuterol Sulfate 90 Mcg 8 Gm Inhaler) 2 puff INHALE Q4H PRN PRN Reason: wheezing Albuterol/Ipratropium (Albuterol/Iprat 2.5/0.5mg 3 Ml Ampul.Neb) 3 ml INHALE Q4H PRN PRN Reason: Wheezing Allopurinol (Allopurinol 100 Mg Tablet) 100 mg PO DAILY [facility] Last Admin: 10/09/21 09:12 Dose: 100 mg Documented By: LEON Ascorbic Acid (Ascorbic Acid 500 Mg Tablet) 500 mg PO DAILY [facility] Last Admin: 10/09/21 09:12 Dose: 500 mg Documented By: LEON Aspirin (Aspirin 81 Mg Tab.Chew) 81 mg PO DAILY [facility] Last Admin: 10/09/21 09:12 Dose: 81 mg Documented By: LEON Atorvastatin Calcium (Atorvastatin Calcium 80 Mg Tablet) 80 mg PO BEDTIME [facility] Last Admin: 10/08/21 19:46 Dose: 80 mg Documented By: LULI Docusate Sodium (Docusate Sodium 100 Mg/10 Ml Liquid) 50 mg PO BID [facility] Last Admin: 10/09/21 09:12 Dose: Not Given Documented By: LEON Non-Admin Reason: Patient Refused Enoxaparin Sodium (Enoxaparin Sodium 40 Mg/0.4 Ml Syringe) 40 mg SUBCUT Q24H [facility] Last Admin: 10/08/21 17:33 Dose: 40 mg Documented By: LEON Ferrous Sulfate (Ferrous Sulfate 324 Mg Tablet.Dr) 324 mg PO DAILY [facility] Last Admin: 10/09/21 09:12 Dose: 324 mg Documented By: LEON Folic Acid (Folic Acid 1 Mg Tablet) 1 mg PO DAILY [facility] Last Admin: 10/09/21 09:11 Dose: 1 mg Documented By: LEON Cefepime HCl 2 gm/ Sodium (Chloride) 50 mls @ 100 mls/hr IV Q12H [facility] Last Infusion: 10/09/21 00:35 Dose: 0 mls/hr Documented By: TELMA Vancomycin HCl 1,000 mg/ (Sodium Chloride) 270 mls @ 270 mls/hr IV Q24H [facility] Last Infusion: 10/08/21 18:38 Dose: 0 mls/hr Documented By: LEON Lactulose (Lactulose 20 Gm/30 Ml Solution) 20 gm PO DAILY PRN PRN Reason: Constipation Last Admin: 10/08/21 12:39 Dose: 20 gm Documented By: JAEL Metoprolol Succinate (Metoprolol Succinate Er 100 Mg Tab.Er.24h) 100 mg PO FARZANEH Y [facility]; Protocol Last Admin: 10/09/21 09:12 Dose: 100 mg Documented By: LEON Ondansetron HCl (Ondansetron Hcl 4 Mg/2 Ml Vial) 4 mg IVPUSH Q8H PRN PRN Reason: Nausea and Vomiting Pharmacy Consult (Consult Rx Perform Med Rec) 1 each MISCELLANE ONCE PRN PRN Reason: Consult order Pharmacy Consult (Consult Rx Perform Med Rec) 1 each MISCELLANE ONCE PRN PRN Reason: Consult order Pharmacy Consult (Consult Rx Vancomycin Dosing) 1 each MISCELLANE DAILY PRN PRN Reason: Consult order Polyethylene Glycol (Polyethylene Glycol 3350 17 Gm Powd.Pack) 17 gm PO DAILY [facility] Last Admin: 10/09/21 09:12 Dose: Not Given Documented By: LEON Non-Admin Reason: Patient Refused Pyridoxine HCl (Pyridoxine Hcl (Vitamin B6) 50 Mg Tablet) 100 mg PO DAILY [facility] Last Admin: 10/09/21 09:11 Dose: 100 mg Documented By: LEON Sodium Chloride (0.9 % Sodium Chloride Flush 3 Ml Syringe) 3 ml IVFLUSH QSHIFT [facility] Last Admin: 10/09/21 09:12 Dose: 3 ml Documented By: LEON Vitamin D (Cholecalciferol (Vitamin D3) 25 Mcg Tablet) 25 mcg PO DAILY [facility] Last Admin: 10/09/21 09:12 Dose: 25 mcg Documented By: LEON Labs CBC & Chem 7: 10/09/21 05:58 10/09/21 05:58 Labs: Laboratory Results - last 24 hr 10/09/21 10/09/21 05:58 05:58 MCV 91.7 MCH 31.3 MCHC 34.1 RDW 13.9 Plt Count 309 MPV 10.8 Immature Gran % (Auto) 1.3 H Neut % (Auto) 47.9 Lymph % (Auto) 33.3 Saunders % (Auto) 16.2 H Eos % (Auto) 0.9 Baso % (Auto) 0.4 Lymph # (Auto) 0.8 L Saunders # (Auto) 0.4 Eos # (Auto) 0.0 Baso # (Auto) 0.0 Abs Immat Gran (auto) 0.03 Absolute Neuts (auto) 1.1 L Absolute Nucleated RBC 0.000 Nucleated RBC % (auto) 0.0 Anion Gap 11 L Estim Creat Clear Calc 50.0 Estimated GFR > 60 Fasting Glucose 87 Calcium 7.9 L Total Bilirubin 0.2 AST 51 H ALT 43 H Alkaline Phosphatase 102 Total Protein 5.8 L Albumin 2.6 L Microbiology Microbiology Results: Microbiology 10/07/21 11:49 Blood Culture - Preliminary Blood - Venous No growth after 24 hours. 10/07/21 11:47 Blood Culture - Preliminary Blood - Venous No growth after 24 hours. Assessment and Plan (1) Pneumonia: Status: Acute (2) COPD (chronic obstructive pulmonary disease): Status: Acute (3) Lung cancer: Status: Acute (4) Coronary artery disease: Status: Acute (5) HTN (hypertension): Status: Acute (6) Anemia: Status: Acute Plan 76-year-old man status post right pneumonectomy for a moderately differentiated adenocarcinoma presents with shortness of breath fever and chills after recent hospitalization at [facility]. States he was hospitalized for 3 days for pneumonia and sent home on azithromycin. States after 3rd day of azithromycin developed worsening shortness of breath fever and chills which prompted return to [facility]. CTA done in the emergency room failed to demonstrate pulmonary embolism but did demonstrate patchy opacities in the left lower lobe consistent with infiltrate 1. Left lower lobe pneumonia (in backdrop of COPD) -IV cefepime/vancomycin to cover HAP(3) -titrate O2 to maintain sats greater than equal to 90% -p.r.nEliane Cramer 2. Moderately differentiated adenocarcinoma of the lung -treatment as per 1 3. CAD -currently asymptomatic -continue ASA/beta-patricia -adjust as indicated 4. Hypertension -acceptable control on current therapies -adjust as indicated 5. Anemia -chronic; at baseline -follow daily CBC and transfuse for hemoglobin less than 7 DNR DNI Lovenox Patient will require ongoing hospitalization for IV antibiotics for hospital- acquired pneumonia; high risk for outpatient failure Quality Stroke Does the patient have a stroke diagnosis?: No VTE Prior VTE?: No VTE Risk Level:: Medical - moderate - high VTE Device Contraindication: Treatment Not Indicated VTE Drug Contraindication: N/A - Med Ordered
[2021-10-09 12:00] VITALS: BP 150/66; PULSE 67; RESP 18; TEMP 36.2; O2SAT 99
[2021-10-09 15:25] VITALS: BP 123/63; PULSE 60; RESP 18; TEMP 36.8; O2SAT 99
[2021-10-09 15:48] LABS: Vancomycin Trough 14.2 mcg/mL (10.0-20.0)
[2021-10-09] MEDS: Enoxaparin Sodium 40 MG/0.4 ML SYRINGE SUBCUT (16:53)
[2021-10-09] MEDS: vancomycin HCL 1,000 MG in 0.9 % Sodium Chloride 250 ML 270 MG IV (16:53)
[2021-10-09] MEDS: Docusate Sodium 100 MG/10 ML LIQUID 50 MG PO (20:59)
[2021-10-09] MEDS: Atorvastatin Calcium 80 MG TABLET PO (21:02)
[2021-10-10] VITALS (7 sets, daily range): BP systolic 104–161; BP diastolic 55–73; PULSE 61–78; RESP 14–20; TEMP 35.8–36.8; O2SAT 96–99
[2021-10-10] MEDS: cefEPime HCl 2 GM in 0.9 % Sodium Chloride 50 ML IV ×3 (00:04→23:52)
[2021-10-10 07:10] LABS: Eosinophils Percent Auto 0.4 % (0-4); Hematocrit 22.1 % (42.0-52.0); Hemoglobin 7.5 g/dl (14.0-18.0); Imm Gran Abs Auto 0.03 X10*3/uL (0.00-0.03); Imm Gran Pct Auto 1.2 % (0.0-0.4); Lymphocytes Absolute Auto 0.9 X10*3/uL (1.2-4.9); Lymphocytes Percent Auto 36.4 % (20-40); MANUAL DIFF FLAG SCAN; Mean Corpuscular HGB Conc 33.9 g/dl (31.0-36.0); Mean Corpuscular Hemoglobin 31.4 pg (27.0-33.0); Mean Corpuscular Volume 92.5 fL (80.0-98.0); Monocytes Absolute Auto 0.5 X10*3/uL (0.1-1.2); Monocytes Percent Auto 18.2 % (2-11); Neutrophils Absolute Auto 1.1 x10*3/uL (2.0-8.3); Neutrophils Percent Auto 43.8 % (45-73); Platelet Count 313 X10*3/uL (160-400); Red Blood Count 2.39 X10*6/uL (4.60-5.80); Red Cell Distribution Width 14.1 % (11.0-16.0); SCAN SMEAR FLAG 1
[2021-10-10 07:24] LABS: White Blood Count 2.5 X10*3/uL (4.8-10.8)
[2021-10-10 07:36] LABS: Alanine Aminotransferase 48 U/L (0-40); Albumin Level 2.7 g/dL (3.5-5.0); Alkaline Phosphatase 103 U/L (39-117); Anion Gap 10 (12-20); Aspartate Amino Transferase 59 U/L (5-37); Bilirubin Total 0.2 mg/dL (0.0-1.0); Blood Urea Nitrogen 11 mg/dL (9-16); Calcium 7.9 mg/dL (8.4-10.2); Carbon Dioxide 21 mmol/L (22-29); Chloride 111 mmol/L (96-108); Creatinine Clr Calc Pharmacy 44.2; Estimated Glomerular Filt Rate > 60; Glucose Fasting 83 mg/dL (60-99); Potassium 4.2 mmol/L (3.3-5.1); SLIDE REVIEW VERIFIED; Sodium 138 mmol/L (135-145); Total Protein 5.8 g/dL (6.5-8.0)
[2021-10-10] MEDS: Aspirin 81 MG TAB.CHEW PO (08:53)
[2021-10-10] MEDS: Ferrous Sulfate 324 MG TABLET.DR PO (08:53)
[2021-10-10] MEDS: Cholecalciferol (Vitamin D3) 25 MCG TABLET PO (08:53)
[2021-10-10] MEDS: Metoprolol Succinate ER 100 MG TAB.ER.24H PO (08:53)
[2021-10-10] MEDS: Docusate Sodium 100 MG/10 ML LIQUID 50 MG PO ×2 (08:53→20:24)
[2021-10-10] MEDS: Folic Acid 1 MG TABLET PO (08:53)
[2021-10-10] MEDS: Pyridoxine HCl (Vitamin B6) 50 MG TABLET 100 MG PO (08:53)
[2021-10-10] MEDS: allopurinoL 100 MG TABLET PO (08:53)
[2021-10-10] MEDS: Ascorbic Acid 500 MG TABLET PO (08:53)
[2021-10-10] MEDS: polyethylene glycoL 3350 17 GM POWD.PACK PO (08:54)
[2021-10-10] MEDS: 0.9 % Sodium Chloride Flush 3 ML SYRINGE IVFLUSH ×3 (08:54→20:24)
--- NOTE | 2021-10-10 08:58 | HE.PHANOTE ---
RE VANCO Slight increase in SCr to 1.12 from 0.99, consistent with kidney function from 10/08. Continue current dose. Next trough was already ordered for 10/11 @1500
--- NOTE | 2021-10-10 11:03 | HO.PM.IMPN ---
Subjective Subjective Date of Service: 10/10/21 Interval History: No acute issues overnight; no respiratory distress on room Review of Systems Denies chest pain Admit shortness of breath Denies nausea vomiting diarrhea Admits fever no chills Physical Exam Vital Signs: Vital Signs: Last Vital Signs Temp 96.4 F L 10/10/21 07:46 Pulse 62 10/10/21 07:46 Resp 20 10/10/21 07:46 BP 131/60 10/10/21 07:46 Pulse Ox 98 10/10/21 07:46 O2 Del Method 10/10/21 07:46 BMI result Body Mass Index 18.1 Const: Other: Awake alert oriented x3 in no respiratory distress Resp: Other: Diminished bilaterally with scant end-expiratory crackles bilaterally. Minimal wheezing no rhonchi Cardio: Other: No S4; positive S1-S2; no S3 murmurs rubs or gallops GI: Other: Soft nontender nondistended normoactive bowel sounds Neuro: Other: Cranial nerves 2-12 grossly intact as tested. Motor is 5/5 all extremities. Sensation intact. Cognition appropriate Extrem: Other: No edema bilaterally Objective Data Active Medications Acetaminophen (Acetaminophen 325 Mg Tablet) 650 mg PO Q6H PRN PRN Reason: Pain, Mild (Pain Scale 1-3) Albuterol Sulfate (Albuterol Sulfate 90 Mcg 8 Gm Inhaler) 2 puff INHALE Q4H PRN PRN Reason: wheezing Albuterol/Ipratropium (Albuterol/Iprat 2.5/0.5mg 3 Ml Ampul.Neb) 3 ml INHALE Q4H PRN PRN Reason: Wheezing Allopurinol (Allopurinol 100 Mg Tablet) 100 mg PO DAILY [facility] Last Admin: 10/10/21 08:53 Dose: 100 mg Documented By: URBANO Ascorbic Acid (Ascorbic Acid 500 Mg Tablet) 500 mg PO DAILY [facility] Last Admin: 10/10/21 08:53 Dose: 500 mg Documented By: URBANO Aspirin (Aspirin 81 Mg Tab.Chew) 81 mg PO DAILY [facility] Last Admin: 10/10/21 08:53 Dose: 81 mg Documented By: URBANO Atorvastatin Calcium (Atorvastatin Calcium 80 Mg Tablet) 80 mg PO BEDTIME [facility] Last Admin: 10/09/21 21:02 Dose: 80 mg Documented By: TIFFANI Docusate Sodium (Docusate Sodium 100 Mg/10 Ml Liquid) 50 mg PO BID [facility] Last Admin: 10/10/21 08:53 Dose: 50 mg Documented By: URBANO Enoxaparin Sodium (Enoxaparin Sodium 40 Mg/0.4 Ml Syringe) 40 mg SUBCUT Q24H [facility] Last Admin: 10/09/21 16:53 Dose: 40 mg Documented By: URBANO Ferrous Sulfate (Ferrous Sulfate 324 Mg Tablet.Dr) 324 mg PO DAILY [facility] Last Admin: 10/10/21 08:53 Dose: 324 mg Documented By: URBANO Folic Acid (Folic Acid 1 Mg Tablet) 1 mg PO DAILY [facility] Last Admin: 10/10/21 08:53 Dose: 1 mg Documented By: URBANO Cefepime HCl 2 gm/ Sodium (Chloride) 50 mls @ 100 mls/hr IV Q12H [facility] Last Infusion: 10/10/21 01:06 Dose: 0 mls/hr Documented By: TIFFANI Vancomycin HCl 1,000 mg/ (Sodium Chloride) 270 mls @ 270 mls/hr IV Q24H [facility] Last Infusion: 10/09/21 20:50 Dose: 0 mls/hr Documented By: TIFFANI Lactulose (Lactulose 20 Gm/30 Ml Solution) 20 gm PO DAILY PRN PRN Reason: Constipation Last Admin: 10/08/21 12:39 Dose: 20 gm Documented By: JAEL Metoprolol Succinate (Metoprolol Succinate Er 100 Mg Tab.Er.24h) 100 mg PO DAILY [facility]; Protocol Last Admin: 10/10/21 08:53 Dose: 100 mg Documented By: URBANO Pt Own (Clobetasol 0 (.05 % Ointment)) 1 appl TOPICAL BID PRN PRN Reason: RASH ON ARMS AND LEGS Last Admin: 10/10/21 08:54 Dose: 1 appl Documented By: URBANO Ondansetron HCl (Ondansetron Hcl 4 Mg/2 Ml Vial) 4 mg IVPUSH Q8H PRN PRN Reason: Nausea and Vomiting Pharmacy Consult (Consult Rx Perform Med Rec) 1 each MISCELLANE ONCE PRN PRN Reason: Consult order Pharmacy Consult (Consult Rx Perform Med Rec) 1 each MISCELLANE ONCE PRN PRN Reason: Consult order Pharmacy Consult (Consult Rx Vancomycin Dosing) 1 each MISCELLANE DAILY PRN PRN Reason: Consult order Polyethylene Glycol (Polyethylene Glycol 3350 17 Gm Powd.Pack) 17 gm PO DAILY [facility] Last Admin: 10/10/21 08:54 Dose: 17 gm Documented By: URBANO Pyridoxine HCl (Pyridoxine Hcl (Vitamin B6) 50 Mg Tablet) 100 mg PO DAILY [facility] Last Admin: 10/10/21 08:53 Dose: 100 mg Documented By: URBANO Sodium Chloride (0.9 % Sodium Chloride Flush 3 Ml Syringe) 3 ml IVFLUSH QSHIFT [facility] Last Admin: 10/10/21 08:54 Dose: 3 ml Documented By: URBANO Vitamin D (Cholecalciferol (Vitamin D3) 25 Mcg Tablet) 25 mcg PO DAILY [facility] Last Admin: 10/10/21 08:53 Dose: 25 mcg Documented By: URBANO Labs CBC & Chem 7: 10/10/21 06:13 10/10/21 06:13 Labs: Laboratory Results - last 24 hr 10/09/21 10/10/21 10/10/21 14:47 06:13 06:13 MCV 92.5 MCH 31.4 MCHC 33.9 RDW 14.1 Plt Count 313 MPV 11.0 Immature Gran % (Auto) 1.2 H Neut % (Auto) 43.8 L Lymph % (Auto) 36.4 Mccone % (Auto) 18.2 H Eos % (Auto) 0.4 Baso % (Auto) 0.0 Lymph # (Auto) 0.9 L Mccone # (Auto) 0.5 Eos # (Auto) 0.0 Baso # (Auto) 0.0 Abs Immat Gran (auto) 0.03 Absolute Neuts (auto) 1.1 L Absolute Nucleated RBC 0.000 Nucleated RBC % (auto) 0.0 Smear Tech's Comments VERIFIED Anion Gap 10 L Estim Creat Clear Calc 44.2 Estimated GFR > 60 Fasting Glucose 83 Calcium 7.9 L Total Bilirubin 0.2 AST 59 H ALT 48 H Alkaline Phosphatase 103 Total Protein 5.8 L Albumin 2.7 L Vancomycin Trough 14.2 Microbiology Microbiology Results: Microbiology 10/07/21 11:49 Blood Culture - Preliminary Blood - Venous No growth after 48 hours. 10/07/21 11:47 Blood Culture - Preliminary Blood - Venous No growth after 48 hours. Assessment and Plan (1) Pneumonia: Status: Acute (2) COPD (chronic obstructive pulmonary disease): Status: Acute (3) Lung cancer: Status: Acute (4) Coronary artery disease: Status: Acute (5) HTN (hypertension): Status: Acute (6) Anemia: Status: Acute Plan 76-year-old man status post right pneumonectomy for a moderately differentiated adenocarcinoma presents with shortness of breath fever and chills after recent hospitalization at [facility]. States he was hospitalized for 3 days for pneumonia and sent home on azithromycin. States after 3rd day of azithromycin developed worsening shortness of breath fever and chills which prompted return to [facility]. CTA done in the emergency room failed to demonstrate pulmonary embolism but did demonstrate patchy opacities in the left lower lobe consistent with infiltrate 1. Left lower lobe pneumonia (in backdrop of COPD) -IV cefepime/vancomycin to cover HAP(4) -titrate O2 to maintain sats greater than equal to 90% -p.r.n. Shoaib 2. Moderately differentiated adenocarcinoma of the lung -treatment as per 1 3. CAD -currently asymptomatic -continue ASA/beta-patricia -adjust as indicated 4. Hypertension -acceptable control on current therapies -adjust as indicated 5. Anemia -chronic; at baseline -follow daily CBC and transfuse for hemoglobin less than 7 DNR DNI Lovenox Patient will require ongoing hospitalization for IV antibiotics for hospital-acquired pneumonia; high risk for outpatient failure Quality Stroke Does the patient have a stroke diagnosis?: No VTE Prior VTE?: No VTE Risk Level:: Medical - moderate - high VTE Device Contraindication: Treatment Not Indicated VTE Drug Contraindication: N/A - Med Ordered
[2021-10-10] MEDS: Enoxaparin Sodium 40 MG/0.4 ML SYRINGE SUBCUT (17:38)
[2021-10-10] MEDS: Atorvastatin Calcium 80 MG TABLET PO (20:24)
[2021-10-11 04:00] VITALS: BP 115/62; PULSE 70; RESP 18; TEMP 36; O2SAT 97
[2021-10-11 06:36] LABS: MANUAL DIFF FLAG NO
[2021-10-11 06:39] LABS: Hematocrit 22.2 % (42.0-52.0); Hemoglobin 7.4 g/dl (14.0-18.0); Imm Gran Abs Auto 0.01 X10*3/uL (0.00-0.03); Imm Gran Pct Auto 0.4 % (0.0-0.4); Lymphocytes Absolute Auto 0.8 X10*3/uL (1.2-4.9); Lymphocytes Percent Auto 31.5 % (20-40); Mean Corpuscular HGB Conc 33.3 g/dl (31.0-36.0); Mean Corpuscular Hemoglobin 31.2 pg (27.0-33.0); Mean Corpuscular Volume 93.7 fL (80.0-98.0); Mean Platelet Volume 10.7 fL (9.4-12.4); Monocytes Absolute Auto 0.4 X10*3/uL (0.1-1.2); Monocytes Percent Auto 14.4 % (2-11); Neutrophils Absolute Auto 1.4 x10*3/uL (2.0-8.3); Neutrophils Percent Auto 53.7 % (45-73); Platelet Count 313 X10*3/uL (160-400); Red Blood Count 2.37 X10*6/uL (4.60-5.80); Red Cell Distribution Width 14.6 % (11.0-16.0); White Blood Count 2.6 X10*3/uL (4.8-10.8)
[2021-10-11 07:11] LABS: Alanine Aminotransferase 68 U/L (0-40); Albumin Level 2.8 g/dL (3.5-5.0); Alkaline Phosphatase 109 U/L (39-117); Anion Gap 11 (12-20); Aspartate Amino Transferase 82 U/L (5-37); Bilirubin Total 0.3 mg/dL (0.0-1.0); Blood Urea Nitrogen 11 mg/dL (9-16); Carbon Dioxide 21 mmol/L (22-29); Chloride 110 mmol/L (96-108); Creatinine Clr Calc Pharmacy 42.7; Estimated Glomerular Filt Rate > 60; Glucose Fasting 96 mg/dL (60-99); Potassium 3.3 mmol/L (3.3-5.1); Sodium 139 mmol/L (135-145); Total Protein 6.1 g/dL (6.5-8.0)
[2021-10-11 08:00] VITALS: BP 161/74; PULSE 62; RESP 17; TEMP 36.3; O2SAT 95
[2021-10-11] MEDS: Folic Acid 1 MG TABLET PO (09:55)
[2021-10-11] MEDS: Ascorbic Acid 500 MG TABLET PO (09:55)
[2021-10-11] MEDS: Pyridoxine HCl (Vitamin B6) 50 MG TABLET 100 MG PO (09:55)
[2021-10-11] MEDS: Aspirin 81 MG TAB.CHEW PO (09:55)
[2021-10-11] MEDS: Cholecalciferol (Vitamin D3) 25 MCG TABLET PO (09:55)
[2021-10-11] MEDS: Ferrous Sulfate 324 MG TABLET.DR PO (09:55)
[2021-10-11] MEDS: Metoprolol Succinate ER 100 MG TAB.ER.24H PO (09:55)
[2021-10-11] MEDS: allopurinoL 100 MG TABLET PO (09:55)
[2021-10-11] MEDS: 0.9 % Sodium Chloride Flush 3 ML SYRINGE IVFLUSH (09:56)
[2021-10-11] MEDS: Docusate Sodium 100 MG/10 ML LIQUID 50 MG PO (09:57)
[2021-10-11] MEDS: polyethylene glycoL 3350 17 GM POWD.PACK PO (09:57)
[2021-10-11] MEDS: cefEPime HCl 2 GM in 0.9 % Sodium Chloride 50 ML IV (11:10)
--- NOTE | 2021-10-11 11:23 | PM.DS ---
DS: Providers Provider Date of Service: 10/11/21 Date of admission: 10/07/21 15:46 Date of discharge: 10/11/21 Primary care physician: JIMMY Weeks DS: Diagnosis Discharge Diagnosis (1) Pneumonia: Status: Acute (2) COPD (chronic obstructive pulmonary disease): Status: Acute (3) Lung cancer: Status: Acute (4) Coronary artery disease: Status: Acute (5) HTN (hypertension): Status: Acute (6) Anemia: Status: Acute DS: Summary Hospital Course Hospital Course: 76 year old male presenting to the emergency department today for evaluation. Patient's daughter states that the patient had a right upper lobe lobectomy secondary to lung cancer. States that the patient caught pneumonia and was admitted for 3 days at [facility], then discharged home with ABX. States that on the last day of his ABX, he spiked a fever and still hasn't felt better since his first hospitalization. Patient states that his last chemo treatment was [address] Smith called from Cardiology and stated the patient was 84% on room air and tachycardic so he was sending him down for evaluation.? ER Course Admitted through ER; given dose of cefepime.? CTA demonstrated patchy opacities in left lower lobe consistent with pneumonitis/infiltrate.? Also noted were severe emphysema however no pulmonary embolism.? When daughter further queried, patient sent home on 3 days of azithromycin then developed fever to 101.? He will be admitted for treatment of hospital-acquired pneumonia failed outpatient therapies Hospital Course Admitted to general medical floor placed on vancomycin and Zosyn to cover hospital-acquired pneumonia. Over the next 72 hours he noted marked improvement at the time of discharge has no oxygen requirement. He is ambulating freely around the room in the halls and he will be discharged home to complete a course of Augmentin. He is instructed follow-up with his PCP and his oncologist as scheduled Time Spent with Patient Time attestation: Total time spent providing and/or coordinating discharge services: Discharge coordination time: Greater than 30 minutes Quality: Safe Use of Opioids Does Pt have an Active Cancer Diagnosis on the Problem List?: Yes Opioid Measure Date for [facility] Report: 09/11/21 Op[address] Time for [facility] Report: 11:28 Quality: Stroke Does the patient have a stroke diagnosis?: No Physical Exam Vital Signs: Vital Signs: Last Vital Signs Temp 97.4 F 10/11/21 08:00 Pulse 62 10/11/21 08:00 Resp 17 10/11/21 08:00 BP 161/74 H 10/11/21 08:00 Pulse Ox 95 10/11/21 08:00 O2 Del Method 10/11/21 08:00 BMI result Body Mass Index 18.1 Const: Other: Awake alert oriented x3 in no respiratory distress Resp: Other: Diminished bilaterally with scant end-expiratory crackles bilaterally. Minimal wheezing no rhonchi Cardio: Other: No S4; positive S1-S2; no S3 murmurs rubs or gallops GI: Other: Soft nontender nondistended normoactive bowel sounds Neuro: Other: Cranial nerves 2-12 grossly intact as tested. Motor is 5/5 all extremities. Sensation intact. Cognition appropriate Extrem: Other: No edema bilaterally DS: Data Data Completed and Pending Completed studies during hospitalization [Text1]: Procedures Dilation of Bilateral Ureters with Intraluminal Device, Via Natural or Artificial Opening Endoscopic (09/27/20) Extirpation of Matter from Left Ureter, Via Natural or Artificial Opening Endoscopic (09/27/20) Fluoroscopy of Left Kidney, Ureter and Bladder (09/27/20) Labs on day of discharge: Laboratory Results - last 24 hr 10/11/21 10/11/21 06:24 06:24 WBC 2.6 L RBC 2.37 L Hgb 7.4 L Hct 22.2 L MCV 93.7 MCH 31.2 MCHC 33.3 RDW 14.6 Plt Count 313 MPV 10.7 Immature Gran % (Auto) 0.4 Neut % (Auto) 53.7 Lymph % (Auto) 31.5 Titus % (Auto) 14.4 H Eos % (Auto) 0.0 Baso % (Auto) 0.0 Lymph # (Auto) 0.8 L Titus # (Auto) 0.4 Eos # (Auto) 0.0 Baso # (Auto) 0.0 Abs Immat Gran (auto) 0.01 Absolute Neuts (auto) 1.4 L Absolute Nucleated RBC 0.000 Nucleated RBC % (auto) 0.0 Sodium 139 Potassium 3.3 D Chloride 110 H Carbon Dioxide 21 L Anion Gap 11 L BUN 11 Creatinine 1.16 Estim Creat Clear Calc 42.7 Estimated GFR > 60 Fasting Glucose 96 Calcium 8.0 L Total Bilirubin 0.3 AST 82 H ALT 68 H Alkaline Phosphatase 109 Total Protein 6.1 L Albumin 2.8 L Preliminary micro results at discharge 10/07/21 11:49 Blood Culture - Preliminary Blood - Venous No growth after 48 hours. 10/07/21 11:47 Blood Culture - Preliminary Blood - Venous No growth after 48 hours. Discharge Plan Discharge Patient Disposition: Home, Self-Care Discharge Diagnosis: Left lower lobe pneumonia Referrals: Arnulfo Angeles PA [Primary Care Provider] - 1 Week Discharge Medications: New amoxicillin-pot clavulanate 875-125 mg tablet 1 tab PO BID Qty: 14 0RF Continued allopurinol 100 mg tablet 100 mg PO DAILY 90 Days Qty: 90 1RF pyridoxine (vitamin B6) 100 mg tablet 100 mg PO DAILY 90 Days Qty: 90 0RF metoprolol succinate 100 mg tablet extended release 24 hr 100 mg PO DAILY Qty: 90 3RF atorvastatin 80 mg tablet 80 mg PO BEDTIME 90 Days Qty: 90 3RF amlodipine 5 mg tablet 5 mg PO DAILY Qty: 90 1RF aspirin 81 mg Tablet,Chewable 81 mg PO DAILY nystatin 100,000 unit/mL suspension 5 ml PO QID albuterol sulfate 90 mcg/actuation HFA aerosol inhaler 2 puff inhalation Q4-6H PRN (Reason: wheezing) lactulose 10 gram/15 mL solution 30 ml PO DAILY PRN (Reason: Constipation) docusate sodium 50 mg Capsule 50 mg PO BID polyethylene glycol 3350 [Miralax] 17 gram/dose Powder 17 g PO DAILY clobetasol 0.05 % Ointment 1 appl TOPICAL BID PRN (Reason: RASH ON ARMS AND LEGS) folic acid 1 mg tablet 1 mg PO DAILY ascorbate calcium (vitamin C) 500 mg tablet 500 mg PO DAILY ferrous sulfate 324 mg (65 mg iron) tablet,delayed release (DR/EC) 324 mg PO DAILY cholecalciferol (vitamin D3) 25 mcg (1,000 unit) capsule 25 mcg PO DAILY Discharge Orders: Discharge Order (Routine); Ordered 10/11/21 Ordered By: Jan Giang Diet: Advance to usual diet Activity on Discharge: As tolerated Stand Alone Forms: Patient Portal Discharge page Care Plan Goals: Complete course of Augmentin as prescribed Health Concerns: Resume all medications as previous to hospitalization Plan of Treatment: Follow-up with PCP and oncologist as scheduled Assessment: See discharge summary
== END 2021-10-11 12:34 | disposition home or self-care (01) | DRG 194 ==
LOC: HO.ED 15:47 → HO.EDOVER 16:36 → HO.S3 10-08 15:30
PROVIDERS: Physician Assistant Medical; Admitting Provider Hospitalist; Emergency Provider Emergency Medicine; PCP Physician Assistant; Visit Provider Hospitalist
DX: J18.9 Pneumonia, unspecified organism (principal); C34.90 Malignant neoplasm of unspecified part of unspecified bronchus or lung; D63.0 Anemia in neoplastic disease; J43.9 Emphysema, unspecified; I10 Essential (primary) hypertension; I25.10 Atherosclerotic heart disease of native coronary artery without angina pectoris; Z66 Do not resuscitate; Z95.1 Presence of aortocoronary bypass graft; F17.210 Nicotine dependence, cigarettes, uncomplicated; Z20.822 Contact with and (suspected) exposure to COVID-19; Z87.442 Personal history of urinary calculi; Z90.2 Acquired absence of lung [part of]; Z71.6 Tobacco abuse counseling; Z79.82 Long term (current) use of aspirin; Z79.899 Other long term (current) drug therapy
CPT/HCPCS: 36415; 71275; 80053; 80202; 81001; 82803; 83605; 83735; 84484; 85025; 86850; 86900; 86901; 87040; 87502; 87635; 93005; 96365; 99212; 99285; J0692; J1650; J3370; Q9967

== ENCOUNTER 2021-12-02 14:52 | Inpatient (IN) | payer OTHER, SELFPAY ==
[2021-12-02] VITALS (7 sets, daily range): BP systolic 110–159; BP diastolic 41–87; PULSE 90–138; RESP 16–18; TEMP 36.9–37.1; O2SAT 97–98; BMI 17.4
--- NOTE | 2021-12-02 | ECG_ITS ---
Test Reason : REPEAT Blood Pressure : / mmHG Vent. Rate : 125 BPM Atrial Rate : 125 BPM P-R Int : 152 ms QRS Dur : 088 ms QT Int : 308 ms P-R-T Axes : 077 073 076 degrees QTc Int : 444 ms Sinus tachycardia Cannot rule out Anteroseptal infarct , age undetermined Abnormal ECG When compared with ECG of 02-DEC-2021 17:29, No significant change was found Referred By: Elvis Castaneda Electronically Signed By:SHANKAR NAVA
--- NOTE | ~2021-12-02 | XR_ITS ---
EXAMINATION: XR CHEST CLINICAL INFORMATION: Cough. COMPARISON: 12/02/2021 chest radiograph. Chest CTA dated 12/02/2021. TECHNIQUE: Frontal view of the chest was obtained. FINDINGS: Chronic interstitial changes are seen are seen with a paucity of lung markings in the right upper lobe without significant change. Mild apical pleural thickening and scarring. The heart and mediastinal structures are unremarkable. Multilevel sternotomy wires are intact. XR/XR chest 1V IMPRESSION: Chronic interstitial changes/COPD without acute cardiopulmonary process.
--- NOTE | ~2021-12-02 | CT_ITS ---
EXAMINATION: NONCONTRAST HEAD CT NONCONTRAST CERVICAL SPINE CT INDICATION INFORMATION: Fall. Head strike. COMPARISON: None TECHNIQUE: Separate noncontrast CT examinations of the head and cervical spine were performed. Coronal and sagittal images were created for each examination at the technologist workstation. This CT examination was performed using dose optimization techniques as appropriate, variously including the following: *Automated exposure control *Adjustment of mA and/or kV according to patient size (this includes techniques or standardized protocols for targeted exams where dose is matched to indication/reason for exam; i.e. extremities or head) *Use of iterative reconstruction technique DLP: 1058 mGy-cm FINDINGS: Head: There is no evidence of acute intracranial hemorrhage or territorial infarction. No abnormal mass effect or midline shift is seen. George to white matter differentiation is well preserved. No extra-axial fluid collections are identified. No hydrocephalus. Proportional prominence of the ventricles and sulcal spaces is consistent with mild volume loss. Patchy periventricular and deep white matter hypoattenuation is consistent with mild small vessel ischemic changes. No acute osseous or soft tissue abnormality. The mastoid air cells and visualized portions of the paranasal sinuses are well aerated. Cervical spine: There is anatomic alignment of the vertebral bodies and posterior elements. The atlantoaxial and atlantooccipital articulations are intact. Vertebral body heights are maintained. There is multilevel intervertebral disc space narrowing with endplate osteophyte formation and facet arthropathy. There is bony fusion of the right facets at C4-C5. No evidence of acute fracture. No prevertebral soft tissue swelling. Bullous disease at the right lung apex. Paraseptal emphysema at the left apex.. The thyroid gland is unremarkable. CT/CT cervical spine wo con IMPRESSION: 1. No acute intracranial finding. Chronic volume loss with small vessel ischemic change. 2. No fracture or malalignment of the cervical spine. Mild to moderate degenerative changes throughout.
--- NOTE | ~2021-12-02 | XR_ITS ---
EXAMINATION: XR CHEST CLINICAL INFORMATION: Short of breath. Cough. COMPARISON: 05/28/2021 TECHNIQUE: Frontal view of the chest was obtained. FINDINGS: Median sternotomy wires with fracture of the superior wire. The lungs are well expanded. Bronchial wall thickening noted with interstitial prominence. This is likely in part chronic, as there is known severe emphysema. No dense consolidation. No pleural effusion or pneumothorax. The cardiomediastinal silhouette is normal in size, with a calcified aorta. XR/XR chest 1V IMPRESSION: Bronchial wall thickening with interstitial prominence which may be chronic, in the setting of known severe emphysema. Similar appearance to prior imaging. No new consolidation.
--- NOTE | ~2021-12-02 | CT_ITS ---
EXAMINATION: CT ANGIOGRAM OF THE CHEST WITH AND WITHOUT CONTRAST (CT PULMONARY ANGIOGRAM FOR PE) CT ABDOMEN AND PELVIS WITH CONTRAST CLINICAL INFORMATION: Reason for Exam fall, back pain, syncope positive d-dimer COMPARISON: Chest CT 10/07/2021, CT abdomen and pelvis 09/27/2020 TECHNIQUE: Prior to contrast administration, noncontrast localization images were obtained. Subsequently, multidetector volumetric imaging was performed from the thoracic inlet to the pubic symphysis following the administration of 80 mL Omnipaque 350 intravenous contrast. This was followed by multidetector acquisition of the abdomen and pelvis. No contrast reaction reported Sagittal, coronal, and MIP oblique sagittal reformatted images were obtained on the CT workstation, uploaded to PACS, and reviewed. This CT examination was performed using dose optimization techniques as appropriate, variously including the following: *Automated exposure control *Adjustment of mA and/or kV according to patient size (this includes techniques or standardized protocols for targeted exams where dose is matched to indication/reason for exam; i.e. extremities or head) *Use of iterative reconstruction technique Total exam dose-length product 861 mGy-cm FINDINGS: CHEST: Quality of study/contrast bolus: Suboptimal for detection of smaller segmental pulmonary emboli primarily due to mild respiratory motion artifact. Pulmonary arteries: No central or large segmental pulmonary embolus. Normal caliber central pulmonary trunk. Thoracic aorta: No aneurysm or dissection. Great vessel origins are patent. Moderate vascular calcifications. Status post median sternotomy and coronary artery bypass grafting. Lungs: No suspicious appearing pulmonary nodule or mass. A few small sub-4 mm calcified granulomas noted in the right middle lobe and left lung apex. Extensive respiratory motion artifact. Paraseptal and centrilobular emphysema most extensively in the right lower lobe. Status post right upper lobectomy. Mild dependent bibasilar atelectasis. No airspace consolidation. Airways:Residual central airways are clear. Pleura and pericardium: Trace right basilar pleural fluid versus pleural thickening. No pericardial effusion. Heart: No cardiomegaly. No evidence of interventricular septal bowing/RV strain. Lymph nodes: Prominent ill-defined subcarinal artemio tissue measuring up to 1 cm in short axis. No additional mediastinal or hilar lymphadenopathy. No axillary lymphadenopathy. Chest Wall: No chest wall mass. ABDOMEN/PELVIS: Liver: Normal size and attenuation. No liver lesions. Gallbladder and bile ducts:Few tiny calcified gallstones. No gallbladder wall thickening or inflammatory change. Exophytic bile duct measures 7 mm in diameter, at the upper limits of normal for patient's. No intrahepatic biliary ductal dilation. No calcified CBD stone. Pancreas: No pancreatic lesion, ductal dilation, or peripancreatic inflammatory change. Spleen: Normal size. No splenic lesion. Adrenal Glands: Unremarkable. Kidneys and Ureters: Symmetric nephrograms. Small nonobstructing left renal calculi. Small 1.7 cm cyst in the posterior mid to lower pole of the left kidney. Symmetric nonspecific bilateral perirenal fascial stranding/edema, nonspecific finding. Vasculature:Extensive coarse atherosclerotic vascular calcifications with suspected luminal narrowing of the infrarenal abdominal aorta on series 12 image 35. No abdominal aortic aneurysm. Lymph nodes:No lymphadenopathy. Gastrointestinal Tract: Sigmoid diverticulosis. No evidence of acute diverticulitis. Small hiatal hernia. No dilated bowel loops. No bowel wall thickening. The appendix is unremarkable. Peritoneum:No ascites or intra-abdominal free air. Abdominal wall:No hernia. Bladder: Unremarkable. Pelvic Viscera: Possible prior TURP procedure. Correlate with surgical history. Bones: Chronic proliferative bone at the left lesser trochanter, presumably from remote avulsive injury. Chronic/healed right anterior lower rib fracture deformities and sternal fracture deformity. Sternal wires are intact. Mild multilevel degenerative disc disease. CT/CT angio chest PE protocol IMPRESSION: 1. Limited assessment for detecting smaller segmental pulmonary emboli. No central or large segmental pulmonary embolus identified within the limitations of this exam. 2. Status post right upper lobectomy with extensive emphysema. Mild bibasilar atelectasis. No airspace consolidation, effusions, or pneumothorax. 3. No acute intra-abdominal process identified. 4. No acute fracture. 5. Multiple additional chronic ancillary findings, as described. VTE: Negative with limitation, as above.
--- NOTE | 2021-12-02 15:47 | PC.NURSE ---
daughter Irma is HCP - called and informed t/w that pt has been on the floor from 2099 until 1300 today
--- NOTE | 2021-12-02 16:13 | ED_ITS ---
HPI - Fall General Chief Complaint: Fall Stated Complaint: WEAK X'S DAYS SINCE CHEMO W/FALLS AND LAC Time Seen by Provider: 12/02/21 16:12 Source: patient and EMS Mode of arrival: EMS Limitations: no limitations History of Present Illness HPI Narrative: 76-year-old male history of DKA, carotid artery stenosis, history of CABG in 2019, currently daily smoker, lungs cancer, pneumonia who presents to the ED in cervical collar via EMS status post syncopal episode and fall from a standing height. Patient tells me that last night he was walking out of his bathroom when he suddenly became lightheaded and and passed out, losing conciousness for a few hours, denies any confusion after the fall or known convulsions/incontinence. He tells me that he slept on his floor all night as he was feeling weak. He then had a 2nd syncopal episode this morning where he felt lightheaded when and lost consciousness again however cannot tell me how long he lost consciousness for as hold these episodes were unwitnessed. + head strike. Upon presentation in he reports head pain, reports bilateral low back pain, bilateral lower extremity weakness, and productive cough with yellow/green sputum. Additionally he tells me that he has abrasions to his left forearm. He reports chronic shortness of breath secondary to his right lung cancer, currently receiving chemo, last email was 10 days ago. Denies fever, chills, chest pain, new shortness of breath, nausea, vomiting, diarrhea, numbness, tingling, saddle anesthesia. Denies history of IV drug abuse. Denies anticoagulation. MD complaint: fall Related Data Home Medications Medication Instructions Recorded Confirmed aspirin 81 mg chewable tablet 81 mg PO DAILY 05/27/21 12/02/21 ascorbate calcium (vitamin C) 500 500 mg PO DAILY 06/11/21 12/02/21 mg tablet cholecalciferol (vitamin D3) 25 25 mcg PO DAILY 06/11/21 12/02/21 mcg (1,000 unit) capsule ferrous sulfate 324 mg (65 mg 324 mg PO DAILY 06/11/21 12/02/21 iron) tablet,delayed release albuterol sulfate 90 mcg/actuation 2 puff inhalation Q4-6H PRN 10/07/21 12/02/21 aerosol inhaler wheezing docusate sodium 50 mg capsule 50 mg PO BID 10/07/21 12/02/21 folic acid 1 mg tablet 1 mg PO DAILY 10/07/21 12/02/21 clobetasol 0.05 % topical ointment 1 appl topical BID PRN RASH ON 10/09/2111/09 ARMS AND LEGS Previous Rx's Medication Instructions Recorded allopurinol 100 mg tablet 100 mg PO DAILY 90 days #90 tabs 06/21/21 pyridoxine (vitamin B6) 100 mg 100 mg PO DAILY 90 days #90 tabs 07/22/21 tablet metoprolol succinate 100 mg 100 mg PO DAILY #90 tabs 08/02/21 tablet,extended release 24 hr atorvastatin 80 mg tablet 80 mg PO BEDTIME 90 days #90 tabs 08/06/21 amlodipine 5 mg tablet 5 mg PO DAILY #90 tabs 10/07/21 Allergies Allergy/AdvReac Type Severity Reaction Status Date / Time No Known Allergies Allergy Verified 09/10/21 08:54 [No Known Allergies*] Review of Systems Review of Systems: Constitutional : No Weight loss, No Fever, No Chills, no Fatigue, no Malaise ENT/Mouth : No sore throat, No Rhinorrhea Eyes: No Eye Pain, No Swelling, No Redness Cardiovascular : No Chest Pain, No SOB, No Dyspnea on Exertion, No Orthopnea, No Edema, No Palpitations Respiratory : + Cough, + Sputum, No Wheezing Gastrointestinal : No Nausea, No Vomiting, No Diarrhea, No Constipation, No abdominal Pain, No Hematochezia, No Melena Genitourinary : No Dysuria, No Urinary Frequency, No Hematuria, Musculoskeletal : No joint pain, No Myalgias, No Joint Swelling, + back pain Skin : No Skin Lesions, No rash Neuro : + Weakness, No Numbness, No Dizziness, + Headache, +light headed All other systems reviewed and are negative Yes all other systems are reviewed and are negative [facility] Past Medical History Attestation statement: The following information was validated with the patient. Source: old records reviewed and nursing notes reviewed Medical History Anemia Carotid artery occlusion Cigarette smoker COPD (chronic obstructive pulmonary disease) Coronary artery disease High cholesterol HTN (hypertension) Kidney stone Pneumothorax after biopsy (~2021) Surgical History History of bronchoscopy (~2021) History of CEA (carotid endarterectomy) (~2018) History of chest tube placement (~2021) History of colonoscopy (~2020) History of cystoscopy (~2020) History of esophagogastroduodenoscopy (EGD) (~2020) History of lithotripsy (~2002) History of lung biopsy (~2021) Hx of CABG (~2018) Social History Social History Household Members: None Housing: House Do you presently have visiting nurse or other home services: No Alcohol intake: former Patient Tobacco Use Status: Current everyday Tobacco user Tobacco use type: Cigarette Cigarette Packs Per Day: 0.5 Cigarettes Per Day: 10.0 Years Smoked: 50 Second Hand Smoke Exposure: No Use of substances other than those prescribed or required for medical reasons: No Advance Directives: Yes Advance Directives on File: Yes Advance Directives Date on File: 10/12/21 service: Yes Current occupational status: retired Physical Exam Vital Signs: Vital Signs: Last Vital Signs Temp 98.4 F 12/02/21 18:49 Pulse 138 H 12/02/21 23:28 Resp 16 12/02/21 19:15 BP 110/41 L 12/02/21 23:28 Pulse Ox 97 12/02/21 19:15 O2 Del Method 12/02/21 19:15 BMI result Body Mass Index 17.4 vss Appearance: Alert.? Oriented X3.? No acute distress.? Head: Normocephalic, atraumatic, no step-offs or deformities Eyes: Pupils equal, round and reactive to light.? ENT: Pharynx normal.? Neck: Normal inspection.? Neck supple.? CVS: Rapid rate regual rythe,? Pulses normal.? Respiratory: No respiratory distress.?Breath sounds normal.? Abdomen: Soft and nontender.? Skin: Skin warm and dry.? Normal skin color.? Normal skin turgor.? Multiple abrasions to the dorsal aspect of the left forearm. Extremities: No lower extremity edema.? No calf ttp. Global weaknesss. Back: No midline tenderness, no C-spine tenderness, full range of motion, no CVA tenderness bilaterally Neuro: Oriented X 3.? No motor deficit.? No sensory deficit. CN 2-12 intact. Normal heel to willett, finger to nose, and rapid hand movements. Course Reevaluation(s) Reevaluation #1: CPK noted to be elevated, troponin elevated likely secondary to rhabdo. D-dimer positive, and therefore will order CTA to rule out PE. Chest showing significant emphysematous changes. BNP elevated however patient is not complaining of chest pain or significant shortness of breath, not clinically in CHF at this time. EKG significant for sinus tachycardia. Decreased platelets, CT of head without contrast is ordered to rule out head bleed. COVID negative. Time: 17:46 Reevaluation #2: Head CT showing chronic volume loss with small vessel ischemic changes, no acute intracranial findings. CT of cervical spine without fracture or malalignment of the cervical spine, will remove C-collar. CT of abdomen pelvis still pending. CTA pending. Time: 19:10 Reevaluation #3: Patient tachycardic in the 130's, discussed this case w/ patient mentating well A&O X3. Repeat EKG w/ sinus tach, no signs of acute ischemia. Time: 23:49 Additional Reevaluation(s): Orthostatics positive, will hydrate with IV fluids. At this time patient will be admitted to the hospitalist team for further evaluation and treatment of CHF orthostatic hypotension, weakness, frequent falls, near syncopal episodes. MDM - Fall MDM Narrative Medical decision making narrative: 1630 This is a 76-year-old male presenting in [facility] via EMS for syncopal episode x2, fall from standing height, lightheadedness, low back pain, bilateral lower extremity weakness, productive cough. PE global weakness, normal finger to nose, heel to willett, regular rate fast rythem, lungs clear. Global weakness. Patient A&O X4 Plan- labs, trop, dimer, ekgs, bnp , cxr, cpk Will rule out electrolyte abnormalities, UTI, ACS, PE Medical Records Attestation: I reviewed the patient's medical records. Lab Data Attestation: I reviewed the patient's lab results. Result diagrams: 12/02/21 17:07 12/02/21 17:07 Labs: Lab Results 12/02/21 12/02/21 12/02/21 Range/Units 17:07 17:07 17:07 WBC 2.3 L (4.8-10.8) X10*3/uL RBC 2.70 L (4.60-5.80) X10*6/uL Hgb 8.8 L (14.0-18.0) g/dl Hct 25.7 L (42.0-52.0) % MCV 95.2 (80.0-98.0) fL MCH 32.6 (27.0-33.0) pg MCHC 34.2 (31.0-36.0) g/dl RDW 15.9 (11.0-16.0) % Plt Count 137 L D (160-400) X10*3/uL MPV 9.9 (9.4-12.4) fL Immature Gran % (Auto) 0.0 (0.0-0.4) % Neut % (Auto) 61.4 (45-73) % Lymph % (Auto) 29.3 (20-40) % [place] % (Auto) 8.9 (2-11) % Eos % (Auto) 0.0 (0-4) % Baso % (Auto) 0.4 (0-2) % Lymph # (Auto) 0.7 L (1.2-4.9) X10*3/uL [place] # (Auto) 0.2 (0.1-1.2) X10*3/uL Eos # (Auto) 0.0 (0.0-0.4) X10*3/uL Baso # (Auto) 0.0 (0.0-0.2) X10*3/uL Abs Immat Gran (auto) 0.00 (0.00-0.03) X10*3/uL Absolute Neuts (auto) 1.4 L (2.0-8.3) x10*3/uL Absolute Nucleated RBC 0.000 (0.0-0.012) X10*3/uL Nucleated RBC % (auto) 0.0 (0.0-0.2) /100WBC Smear Tech's Comments VERIFIED D-Dimer High Sensitivty NG/ML Sodium 135 (135-145) mmol/L Potassium 3.8 (3.3-5.1) mmol/L Chloride 105 (96-108) mmol/L Carbon Dioxide 20 L (22-29) mmol/L Anion Gap 14 (12-20) BUN 28 H D (9-16) mg/dL Creatinine 1.27 (0.5-1.4) mg/dL Estim Creat Clear Calc 37.4 Estimated GFR 55 Random Glucose 114 (60-115) mg/dL Calcium 8.4 (8.4-10.2) mg/dL Magnesium 1.7 (1.6-2.6) mg/dL Total Bilirubin 0.5 (0.0-1.0) mg/dL AST 90 H (5-37) U/L ALT 37 (0-40) U/L Alkaline Phosphatase 89 (39-117) U/L Total Creatine Kinase 2593 H (38-174) U/L Troponin I High Sens (<3.5-35.0) ng/L B-Natriuretic Peptide (<100) pg/mL Total Protein 7.0 (6.5-8.0) g/dL Albumin 3.0 L (3.5-5.0) g/dL Urine Color Urine Appearance Urine pH (5.0-8.0) Ur Specific [place] (1.005-1.025) Urine Protein (Neg-Trace) mg/dL Urine Glucose (UA) (Negative) mg/dL Urine Ketones (Negative) mg/dL Urine Blood (Negative) Urine Nitrite (Negative) Ur Leukocyte Esterase (Negative) Urine RBC (0-2) /HPF Urine WBC (0-5) /HPF Ur Squamous Epith Cells (0-2) /HPF Urine Bacteria (None Seen) Hyaline Casts (0-2) /LPF COVID-19 (TANSIHA) Negative (Negative) COVID-19 Clin Com See Note 12/02/21 12/02/21 12/02/21 Range/Units 17:07 17:07 17:07 WBC (4.8-10.8) X10*3/uL RBC (4.60-5.80) X10*6/uL Hgb (14.0-18.0) g/dl Hct (42.0-52.0) % MCV (80.0-98.0) fL MCH (27.0-33.0) pg MCHC (31.0-36.0) g/dl RDW (11.0-16.0) % Plt Count (160-400) X10*3/uL MPV (9.4-12.4) fL Immature Gran % (Auto) (0.0-0.4) % Neut % (Auto) (45-73) % Lymph % (Auto) (20-40) % [place] % (Auto) (2-11) % Eos % (Auto) (0-4) % Baso % (Auto) (0-2) % Lymph # (Auto) (1.2-4.9) X10*3/uL [place] # (Auto) (0.1-1.2) X10*3/uL Eos # (Auto) (0.0-0.4) X10*3/uL Baso # (Auto) (0.0-0.2) X10*3/uL Abs Immat Gran (auto) (0.00-0.03) X10*3/uL Absolute Neuts (auto) (2.0-8.3) x10*3/uL Absolute Nucleated RBC (0.0-0.012) X10*3/uL Nucleated RBC % (auto) (0.0-0.2) /100WBC Smear Tech's Comments D-Dimer High Sensitivty 2733 NG/ML Sodium (135-145) mmol/L Potassium (3.3-5.1) mmol/L Chloride (96-108) mmol/L Carbon Dioxide (22-29) mmol/L Anion Gap (12-20) BUN (9-16) mg/dL Creatinine (0.5-1.4) mg/dL Estim Creat Clear Calc Estimated GFR Random Glucose (60-115) mg/dL Calcium (8.4-10.2) mg/dL Magnesium (1.6-2.6) mg/dL Total Bilirubin (0.0-1.0) mg/dL AST (5-37) U/L ALT (0-40) U/L Alkaline Phosphatase (39-117) U/L Total Creatine Kinase (38-174) U/L Troponin I High Sens 63.2 H D (<3.5-35.0) ng/L B-Natriuretic Peptide 916 H (<100) pg/mL Total Protein (6.5-8.0) g/dL Albumin (3.5-5.0) g/dL Urine Color Urine Appearance Urine pH (5.0-8.0) Ur Specific [place] (1.005-1.025) Urine Protein (Neg-Trace) mg/dL Urine Glucose (UA) (Negative) mg/dL Urine Ketones (Negative) mg/dL Urine Blood (Negative) Urine Nitrite (Negative) Ur Leukocyte Esterase (Negative) Urine RBC (0-2) /HPF Urine WBC (0-5) /HPF Ur Squamous Epith Cells (0-2) /HPF Urine Bacteria (None Seen) Hyaline Casts (0-2) /LPF COVID-19 (TANISHA) (Negative) COVID-19 Clin Com 12/02/21 12/02/21 Range/Units 19:33 21:53 WBC (4.8-10.8) X10*3/uL RBC (4.60-5.80) X10*6/uL Hgb (14.0-18.0) g/dl Hct (42.0-52.0) % MCV (80.0-98.0) fL MCH (27.0-33.0) pg MCHC (31.0-36.0) g/dl RDW (11.0-16.0) % Plt Count (160-400) X10*3/uL MPV (9.4-12.4) fL Immature Gran % (Auto) (0.0-0.4) % Neut % (Auto) (45-73) % Lymph % (Auto) (20-40) % [place] % (Auto) (2-11) % Eos % (Auto) (0-4) % Baso % (Auto) (0-2) % Lymph # (Auto) (1.2-4.9) X10*3/uL [place] # (Auto) (0.1-1.2) X10*3/uL Eos # (Auto) (0.0-0.4) X10*3/uL Baso # (Auto) (0.0-0.2) X10*3/uL Abs Immat Gran (auto) (0.00-0.03) X10*3/uL Absolute Neuts (auto) (2.0-8.3) x10*3/uL Absolute Nucleated RBC (0.0-0.012) X10*3/uL Nucleated RBC % (auto) (0.0-0.2) /100WBC Smear Tech's Comments D-Dimer High Sensitivty NG/ML Sodium (135-145) mmol/L Potassium (3.3-5.1) mmol/L Chloride (96-108) mmol/L Carbon Dioxide (22-29) mmol/L Anion Gap (12-20) BUN (9-16) mg/dL Creatinine (0.5-1.4) mg/dL Estim Creat Clear Calc Estimated GFR Random Glucose (60-115) mg/dL Calcium (8.4-10.2) mg/dL Magnesium (1.6-2.6) mg/dL Total Bilirubin (0.0-1.0) mg/dL AST (5-37) U/L ALT (0-40) U/L Alkaline Phosphatase (39-117) U/L Total Creatine Kinase (38-174) U/L Troponin I High Sens 78.3 H (<3.5-35.0) ng/L B-Natriuretic Peptide (<100) pg/mL Total Protein (6.5-8.0) g/dL Albumin (3.5-5.0) g/dL Urine Color Yellow Urine Appearance Clear Urine pH 5.5 (5.0-8.0) Ur Specific [place] 1.020 (1.005-1.025) Urine Protein 100 (2+) H (Neg-Trace) mg/dL Urine Glucose (UA) Negative (Negative) mg/dL Urine Ketones Negative (Negative) mg/dL Urine Blood Moderate (2+) H (Negative) Urine Nitrite Negative (Negative) Ur Leukocyte Esterase Negative (Negative) Urine RBC 0-2 (0-2) /HPF Urine WBC 0-5 (0-5) /HPF Ur Squamous Epith Cells 0-2 (0-2) /HPF Urine Bacteria None Seen (None Seen) Hyaline Casts 0-2 (0-2) /LPF COVID-19 (TANISHA) (Negative) COVID-19 Clin Com Critical Care Time Critical Care Time Critical Care Time: No Discharge Plan Discharge Clinical Impression: Rhabdomyolysis, Fall, Weakness, CHF (congestive heart failure), Orthostatic hypotension Patient Disposition: Admitted As Inpatient Prescriptions: No Action allopurinol 100 mg tablet 100 mg PO DAILY 90 Days Qty: 90 1RF pyridoxine (vitamin B6) 100 mg tablet 100 mg PO DAILY 90 Days Qty: 90 0RF metoprolol succinate 100 mg tablet extended release 24 hr 100 mg PO DAILY Qty: 90 3RF atorvastatin 80 mg tablet 80 mg PO BEDTIME 90 Days Qty: 90 3RF amlodipine 5 mg tablet 5 mg PO DAILY Qty: 90 1RF aspirin 81 mg Tablet,Chewable 81 mg PO DAILY albuterol sulfate 90 mcg/actuation HFA aerosol inhaler 2 puff inhalation Q4-6H PRN (Reason: wheezing) docusate sodium 50 mg Capsule 50 mg PO BID clobetasol 0.05 % Ointment 1 appl TOPICAL BID PRN (Reason: RASH ON ARMS AND LEGS) folic acid 1 mg tablet 1 mg PO DAILY ascorbate calcium (vitamin C) 500 mg tablet 500 mg PO DAILY ferrous sulfate 324 mg (65 mg iron) tablet,delayed release (DR/EC) 324 mg PO DAILY cholecalciferol (vitamin D3) 25 mcg (1,000 unit) capsule 25 mcg PO DAILY
--- NOTE | 2021-12-02 16:14 | ECG_ITS ---
Test Reason : FALL Blood Pressure : / mmHG Vent. Rate : 113 BPM Atrial Rate : 113 BPM P-R Int : 144 ms QRS Dur : 086 ms QT Int : 340 ms P-R-T Axes : 084 063 071 degrees QTc Int : 466 ms Sinus tachycardia Otherwise normal ECG When compared with ECG of 07-OCT-2021 11:15, AR interval has decreased Vent. rate has increased BY 39 BPM Referred By: Elvis Castaneda Electronically Signed By:SHANKAR NAVA
[2021-12-02 17:15] LABS: Basophils Percent Auto 0.4 % (0-2); Hematocrit 25.7 % (42.0-52.0); Hemoglobin 8.8 g/dl (14.0-18.0); Lymphocytes Absolute Auto 0.7 X10*3/uL (1.2-4.9); Lymphocytes Percent Auto 29.3 % (20-40); MANUAL DIFF FLAG SCAN; Mean Corpuscular HGB Conc 34.2 g/dl (31.0-36.0); Mean Corpuscular Hemoglobin 32.6 pg (27.0-33.0); Mean Corpuscular Volume 95.2 fL (80.0-98.0); Mean Platelet Volume 9.9 fL (9.4-12.4); Monocytes Absolute Auto 0.2 X10*3/uL (0.1-1.2); Monocytes Percent Auto 8.9 % (2-11); Neutrophils Absolute Auto 1.4 x10*3/uL (2.0-8.3); Neutrophils Percent Auto 61.4 % (45-73); Platelet Count 137 X10*3/uL (160-400); Red Cell Distribution Width 15.9 % (11.0-16.0); SCAN SMEAR FLAG 1
[2021-12-02 17:29] LABS: COVID-19 Test Negative (Negative)
[2021-12-02 17:33] LABS: D Dimer High Sensitivity 2733 NG/ML
[2021-12-02 17:39] LABS: Troponin-I High Sensitivity 63.2 ng/L (<3.5-35.0)
[2021-12-02 17:42] LABS: B Type Natriuretic Peptide 916 pg/mL (<100)
[2021-12-02 17:45] LABS: White Blood Count 2.3 X10*3/uL (4.8-10.8)
[2021-12-02 17:46] LABS: SLIDE REVIEW VERIFIED
[2021-12-02 17:51] LABS: Alanine Aminotransferase 37 U/L (0-40); Alkaline Phosphatase 89 U/L (39-117); Anion Gap 14 (12-20); Aspartate Amino Transferase 90 U/L (5-37); Bilirubin Total 0.5 mg/dL (0.0-1.0); Blood Urea Nitrogen 28 mg/dL (9-16); Calcium 8.4 mg/dL (8.4-10.2); Carbon Dioxide 20 mmol/L (22-29); Chloride 105 mmol/L (96-108); Creatinine Clr Calc Pharmacy 37.4; Estimated Glomerular Filt Rate 55; Glucose Random 114 mg/dL (60-115); Magnesium 1.7 mg/dL (1.6-2.6); Potassium 3.8 mmol/L (3.3-5.1); Sodium 135 mmol/L (135-145)
--- NOTE | 2021-12-02 18:05 | PHA.MEDREC ---
Pharmacy Consult ? Medication Reconciliation Pharmacy has completed the medication reconciliation.
[2021-12-02] MEDS: iohexoL 350 MG/ML 100 ML INFUS..BTL IV (18:28)
[2021-12-02] MEDS: 0.9 % Sodium Chloride 1,000 ML 999 ML IV (18:52)
[2021-12-02] MEDS: Furosemide 40 MG/4 ML VIAL IVPUSH (19:17)
[2021-12-02 19:42] LABS: Appearance Urine Clear; Color Urine Yellow; Glucose Urine UA Negative (Negative); Leukocyte Esterase Urine Negative (Negative); Nitrite Urine Negative (Negative); PH 5.5 (5.0-8.0); Urine Blood Moderate (2+) (Negative); Urine Ketones Negative (Negative); Urine Protein 100 (2+) mg/dL (Neg-Trace)
[2021-12-02 19:54] LABS: Bacteria Urine None Seen (None Seen); Hyaline Casts Urine 0-2 /LPF (0-2); RBC Urine 0-2 /HPF (0-2); Squamous Epithelial Cell Urine 0-2 /HPF (0-2); WBC Urine 0-5 /HPF (0-5)
[2021-12-02 22:24] LABS: Troponin-I High Sensitivity 78.3 ng/L (<3.5-35.0)
--- NOTE | 2021-12-02 23:56 | P.HPHOSP_ITS ---
History of Present Illness Date of Service: 12/02/21 Chief Complaint: syncope 76-year-old male with past medical history of lung cancer status post lobectomy, currently on chemoradiation per patient, history of CABG, anemia, history of right carotid enterectomy HTN, who presents the hospital after his neighbor found him on the floor. Patient's family were concerned about him, therefore had not heard from him for 2 days, they had called the neighbor and the neighbor did a well check on him and found him on the floor. According to the patient he syncopized, fell to the floor without his trauma, and was not able to get up. Patient reports that he was on the floor for close to 24 hours. He reports that he was feeling dizzy but had no palpitations or chest pain prior to passing out, he reports that he was told not to eat or drink when I asked him to explain who told him that he states you guys , he denies any chest pain, but reports dyspnea worse with exertion, he also complaining of cough and sputum production, denies any fever or chills, no abdominal pain nausea or vomiting, no diarrhea constipation, no urinary symptoms. No lower extremity edema on arrival to the ED patient hemodynamically stable with a heart rate in the 110s labs are significant for WBC count of 2.3, hemoglobin of 8.8, hematocrit 25.7, BUN of 28, creatinine of 1.27 which is close to his baseline, C PK of 2593, trop onin of 63.2 then increase to 78.3, BNP of 916, UA negative patient on it went multiple imaging including chest CT angiogram, that showed limited assessment for detecting smaller segmental pulmonary emboli, no central or large segmental pulmonary embolus identified, no airspace consolidation ef fusion or pneumothorax no acute intra-abdominal process, patient underwent orthostatic vitals which were grossly positive patient started on IV fluids and will be admitted for further management Review of Systems Review of Systems: Yes all other systems are reviewed and are negative [facility] Medical History Anemia Carotid artery occlusion Cigarette smoker COPD (chronic obstructive pulmonary disease) Coronary artery disease High cholesterol HTN (hypertension) Kidney stone Pneumothorax after biopsy (~2021) Family History (Updated 12/03/21 @ 06:22 by Nicole Toscano MD) Other No family history of coronary artery disease Surgical History History of bronchoscopy (~2021) History of CEA (carotid endarterectomy) (~2018) History of chest tube placement (~2021) History of colonoscopy (~2020) History of cystoscopy (~2020) History of esophagogastroduodenoscopy (EGD) (~2020) History of lithotripsy (~2002) History of lung biopsy (~2021) Hx of CABG (~2018) Social History Household Members: None Housing: House Do you presently have visiting nurse or other home services: No Alcohol intake: former Patient Tobacco Use Status: Current everyday Tobacco user Tobacco use type: Cigarette Cigarette Packs Per Day: 0.5 Cigarettes Per Day: 10.0 Years Smoked: 50 Second Hand Smoke Exposure: No Use of substances other than those prescribed or required for medical reasons: No Advance Directives: Yes Advance Directives on File: Yes Advance Directives Date on File: 10/12/21 service: Yes Current occupational status: retired [employer] Allergies Allergy/AdvReac Type Severity Reaction Status Date / Time No Known Allergies Allergy Verified 09/10/21 08:54 [No Known Allergies*] Active Medications: Current Medications Sodium Chloride (Ns) 1,000 mls @ 999 mls/hr IV .Q1H1M NARCISO Stop: 12/03/21 00:45 Pharmacy Consult (Consult Rx Perform Med Rec) 1 each MISCELLANE ONCE PRN PRN Reason: Consult order Home Medications Medication Instructions Recorded Confirmed Last Taken Type aspirin 81 mg chewable tablet 81 mg PO DAILY 05/27/21 12/02/21 10/06/21 History ascorbate calcium (vitamin C) 500 500 mg PO DAILY 06/11/21 12/02/21 10/06/21 History mg tablet cholecalciferol (vitamin D3) 25 25 mcg PO DAILY 06/11/21 12/02/21 10/06/21 History mcg (1,000 unit) capsule ferrous sulfate 324 mg (65 mg 324 mg PO DAILY 06/11/21 12/02/21 10/06/21 History iron) tablet,delayed release albuterol sulfate 90 mcg/actuation 2 puff inhalation Q4-6H PRN 10/07/21 12/02/21 Unknown History aerosol inhaler wheezing docusate sodium 50 mg capsule 50 mg PO BID 10/07/21 12/02/21 10/07/21 History folic acid 1 mg tablet 1 mg PO DAILY 10/07/21 12/02/21 10/06/21 History clobetasol 0.05 % topical ointment 1 appl topical BID PRN RASH ON 10/09/21 12/02/21 Unknown History ARMS AND LEGS Physical Exam Vital Signs and Narrative: Vital Signs: Last Vital Signs Temp 98.4 F 12/02/21 18:49 Pulse 138 H 12/02/21 23:28 Resp 16 12/02/21 19:15 BP 110/41 L 12/02/21 23:28 Pulse Ox 97 12/02/21 19:15 O2 Del Method 12/02/21 19:15 BMI result Body Mass Index 17.4 Const: General: cooperative and no acute distress Orientation/consciousness: patient oriented x3 HEENT: Other: dry mouth Eyes: General: appearance normal, both eyes and all related structures Pupils: Equal, round and reactive pupils present Resp: Other: decreased breath sounds Effort & Inspection: normal respiratory effort Cardio: Rate: regular rate Rhythm: regular rhythm GI: Palpation (GI): Soft to palpation Auscultation: normal bowel sounds Skin: Other: patient's of years dehydrated with dry mucous membranes Neuro: General: patient oriented x3 Cranial nerves: Yes Equal, round and reactive pupils present Cognition (Neuro): normal cognition Extrem: General: Yes normal to inspection and Yes no pedal edema Results Labs CBC and Chem 7: 12/02/21 17:07 12/02/21 17:07 Labs: Laboratory Results - last 24 hr 12/02/21 12/02/21 12/02/21 17:07 17:07 17:07 MCV 95.2 MCH 32.6 MCHC 34.2 RDW 15.9 Plt Count 137 L D MPV 9.9 Immature Gran % (Auto) 0.0 Neut % (Auto) 61.4 Lymph % (Auto) 29.3 [place] % (Auto) 8.9 Eos % (Auto) 0.0 Baso % (Auto) 0.4 Lymph # (Auto) 0.7 L [place] # (Auto) 0.2 Eos # (Auto) 0.0 Baso # (Auto) 0.0 Abs Immat Gran (auto) 0.00 Absolute Neuts (auto) 1.4 L Absolute Nucleated RBC 0.000 Nucleated RBC % (auto) 0.0 Smear Tech's Comments VERIFIED D-Dimer High Sensitivty Anion Gap 14 Estim Creat Clear Calc 37.4 Estimated GFR 55 Random Glucose 114 Calcium 8.4 Magnesium 1.7 Total Bilirubin 0.5 AST 90 H ALT 37 Alkaline Phosphatase 89 Total Creatine Kinase 2593 H B-Natriuretic Peptide Total Protein 7.0 Albumin 3.0 L Urine Color Urine Appearance Urine pH Ur Specific [place] Urine Protein Urine Glucose (UA) Urine Ketones Urine Blood Urine Nitrite Ur Leukocyte Esterase Urine RBC Urine WBC Ur Squamous Epith Cells Urine Bacteria Hyaline Casts COVID-19 (TANISHA) Negative COVID-19 Clin Com See Note 12/02/21 12/02/21 12/02/21 17:07 17:07 19:33 MCV MCH MCHC RDW Plt Count MPV Immature Gran % (Auto) Neut % (Auto) Lymph % (Auto) [place] % (Auto) Eos % (Auto) Baso % (Auto) Lymph # (Auto) [place] # (Auto) Eos # (Auto) Baso # (Auto) Abs Immat Gran (auto) Absolute Neuts (auto) Absolute Nucleated RBC Nucleated RBC % (auto) Smear Tech's Comments D-Dimer High Sensitivty 2733 Anion Gap Estim Creat Clear Calc Estimated GFR Random Glucose Calcium Magnesium Total Bilirubin AST ALT Alkaline Phosphatase Total Creatine Kinase B-Natriuretic Peptide 916 H Total Protein Albumin Urine Color Yellow Urine Appearance Clear Urine pH 5.5 Ur Specific [place] 1.020 Urine Protein 100 (2+) H Urine Glucose (UA) Negative Urine Ketones Negative Urine Blood Moderate (2+) H Urine Nitrite Negative Ur Leukocyte Esterase Negative Urine RBC 0-2 Urine WBC 0-5 Ur Squamous Epith Cells 0-2 Urine Bacteria None Seen Hyaline Casts 0-2 COVID-19 (TANISHA) COVID-19 Clin Com Imaging Radiologist's Impressions: Impressions Chest X-Ray 12/02/21 16:45 IMPRESSION: Bronchial wall thickening with interstitial prominence which may be chronic, in the setting of known severe emphysema. Similar appearance to prior imaging. No new consolidation. Cervical Spine CT 12/02/21 18:25 IMPRESSION: 1. No acute intracranial finding. Chronic volume loss with small vessel ischemic change. 2. No fracture or malalignment of the cervical spine. Mild to moderate degenerative changes throughout. Head CT 12/02/21 18:25 IMPRESSION: 1. No acute intracranial finding. Chronic volume loss with small vessel ischemic change. 2. No fracture or malalignment of the cervical spine. Mild to moderate degenerative changes throughout. Abdomen/Pelvis CT 12/02/21 18:32 IMPRESSION: 1. Limited assessment for detecting smaller segmental pulmonary emboli. No central or large segmental pulmonary embolus identified within the limitations of this exam. 2. Status post right upper lobectomy with extensive emphysema. Mild bibasilar atelectasis. No airspace consolidation, effusions, or pneumothorax. 3. No acute intra-abdominal process identified. 4. No acute fracture. 5. Multiple additional chronic ancillary findings, as described. VTE: Negative with limitation, as above. Chest CTA 12/02/21 18:32 IMPRESSION: 1. Limited assessment for detecting smaller segmental pulmonary emboli. No central or large segmental pulmonary embolus identified within the limitations of this exam. 2. Status post right upper lobectomy with extensive emphysema. Mild bibasilar atelectasis. No airspace consolidation, effusions, or pneumothorax. 3. No acute intra-abdominal process identified. 4. No acute fracture. 5. Multiple additional chronic ancillary findings, as described. VTE: Negative with limitation, as above. Assessment and Plan (1) Syncope: Status: Acute (2) Orthostatic hypotension: Status: Acute (3) Rhabdomyolysis: Status: Acute (4) COPD with acute exacerbation: Status: Acute (5) Fall: Status: Acute Plan 76-year-old male with past medical history of COPD, CHF, CABG, who presents to the hospital with complaints of a syncopal episode # syncope - likely secondary to orthostatic hypotension, but given his extensive cardiac past medical history , a cardiac cause of his syncope cannot be ruled out - he has slightly elevated troponin with no delta, no chest pain, EKG shows no ST T-wave changes suggestive of ACS, no evidence of abnormal conduction - patient started on IV fluids and will be admitted to telemetry # orthostatic hypotension - likely secondary to dehydration - patient clinically appears dry with dry mucous membranes - will treat with IV fluids - repeat orthostatic vitals upon discharge # rhabdomyolysis - secondary to fall - IV fluids - follow CPK # COPD exacerbation - reports shortness of breath, cough, and sputum production - will treat him with Solu-Medrol, DuoNeb treatments - monitor respiratory status # CHF - although has a elevated BNP but does not appear to be in volume overload - at this time will treat with IV fluids, monitor volume and respiratory status DVT prophylaxi Heparin subQ given syncopal episode, orthostatic hypotension requiring IV fluids and rhabdo patient will require minimum 2 night hospital stay for further management and monitoring Quality Stroke Does the patient have a stroke diagnosis?: No VTE Prior VTE?: No VTE Risk Level:: Medical - moderate - high VTE Device Contraindication: Treatment Not Indicated VTE Drug Contraindication: N/A - Med Ordered
[2021-12-03] VITALS (13 sets, daily range): BP systolic 103–161; BP diastolic 56–81; PULSE 70–111; RESP 14–22; TEMP 36.6–37.1; O2SAT 93–100
[2021-12-03] MEDS: methylPREDNISolone Sod Succ 40 MG/ML VIAL IVPUSH ×2 (00:15→12:49)
[2021-12-03] MEDS: Heparin Sodium,Porcine 5,000 UNIT/ML VIAL 5000 UNIT SUBCUT ×2 (00:15→12:49)
[2021-12-03] MEDS: 0.9 % Sodium Chloride Flush 3 ML SYRINGE IVFLUSH ×3 (00:15→16:49)
[2021-12-03] MEDS: 0.9 % Sodium Chloride 1,000 ML 100 ML IVCONT ×2 (02:18→16:48)
[2021-12-03 06:44] LABS: Hematocrit 25.1 % (42.0-52.0); Hemoglobin 8.6 g/dl (14.0-18.0); Mean Corpuscular HGB Conc 34.3 g/dl (31.0-36.0); Mean Corpuscular Hemoglobin 33.1 pg (27.0-33.0); Mean Corpuscular Volume 96.5 fL (80.0-98.0); Mean Platelet Volume 10.6 fL (9.4-12.4); Platelet Count 131 X10*3/uL (160-400); Red Cell Distribution Width 15.9 % (11.0-16.0); White Blood Count 3.2 X10*3/uL (4.8-10.8)
[2021-12-03 07:05] LABS: Anion Gap 16 (12-20); Blood Urea Nitrogen 31 mg/dL (9-16); Carbon Dioxide 17 mmol/L (22-29); Chloride 110 mmol/L (96-108); Creatinine Clr Calc Pharmacy 34.9; Estimated Glomerular Filt Rate 51; Glucose Random 147 mg/dL (60-115); Potassium 3.8 mmol/L (3.3-5.1); Sodium 139 mmol/L (135-145)
[2021-12-03 07:08] LABS: Lymphocytes Absolute Manual 0.7 X10*3/uL (1.2-4.9); Lymphocytes Percent Manual 22 % (20-40); Monocytes Percent Manual 1 % (2-11); Neutrophils Percent Manual 77 % (45-73)
[2021-12-03 07:29] LABS: Ovalocytes 1+ (5-14) /OIF; RBC Morphology NOTED
[2021-12-03 07:30] LABS: Burr Cells 1+ (0-2) /OIF; Platelet Estimate SLIGHTLY DECREASED (NORMAL); Platelet Morphology Comment NORMAL; Polychromasia 1+ (0-2) /OIF; Schistocytes 1+ (0-2) /OIF
[2021-12-03] MEDS: Albuterol/Iprat 2.5/0.5MG 3 ML AMPUL.NEB INHALE ×4 (08:30→19:59)
[2021-12-03 08:33] LABS: Band Neutrophils Percent 0 % (3-5); Neutrophils Absolute Manual 2.5 X10*3/uL (2.0-8.3)
--- NOTE | 2021-12-03 09:10 | PC.NURSE ---
pt's daughter pierce landrum ([phone]) called and was updated on pt status. daughter to fly in from [facility]
--- NOTE | 2021-12-03 10:22 | P.PNIM_ITS ---
Subjective Subjective Date of Service: 12/03/21 Interval History: Seen and examined this morning Admitted overnight for syncope and orthostatic hypotension. Patient reports decreased appetite but has been able to tolerate liquids. He denies any chest pain, palpitations, shortness of breath. He has not had any vomiting or diarrhea. He currently denies any dizziness. Review of Systems Review of Systems: Yes all other systems are reviewed and are negative Constitutional Constitutional: Denies chills and Denies fever(s) ENT Ears, Nose, Mouth, and Throat: Denies dizziness Cardiovascular Cardiovascular: Denies chest pain, Denies palpitations and Denies dyspnea Respiratory Respiratory: Denies cough and Denies dyspnea Gastrointestinal Gastrointestinal: Denies abdominal pain, Denies nausea and Denies vomiting Neurologic Neurologic: Denies dizziness Endocrine Endocrine: Denies palpitations Physical Exam Vital Signs: Vital Signs: Last Vital Signs Temp 98.7 F 12/03/21 10:13 Pulse 81 12/03/21 10:13 Resp 20 12/03/21 10:13 BP 122/69 12/03/21 10:13 Pulse Ox 96 12/03/21 10:13 O2 Del Method 12/03/21 10:13 BMI result Body Mass Index 17.4 Const: General: cooperative, comfortable, alert and awake Nutritional Appearance: thin Resp: Effort & Inspection: normal respiratory effort and able to speak in complete sentences Auscultation: diminished lung sounds Cardio: Rate: regular rate Heart sounds: S1 normal heart sound present and S2 normal heart sound present GI: Inspection: No distended Palpation (GI): Soft to palpation and nontender Skin: Other: Extrem: General: Yes no pedal edema Objective Data Active Medications Acetaminophen (Acetaminophen 325 Mg Tablet) 650 mg PO Q6H PRN PRN Reason: Pain, Mild (Pain Scale 1-3) Albuterol/Ipratropium (Albuterol/Iprat 2.5/0.5mg 3 Ml Ampul.Neb) 3 ml INHALE RQ4H PRN PRN Reason: Shortness of Breath/Wheezing Albuterol/Ipratropium (Albuterol/Iprat 2.5/0.5mg 3 Ml Ampul.Neb) 3 ml INHALE RQ4H WHILE AWAKE NARCISO Last Admin: 12/03/21 08:30 Dose: 3 ml Documented By: ANA Docusate Sodium (Docusate Sodium 100 Mg Capsule) 100 mg PO DAILY PRN PRN Reason: Constipation Heparin Sodium (Porcine) (Heparin Sodium,Porcine 5,000 Unit/Ml Vial) 5,000 unit SUBCUT Q12H [facility] Last Admin: 12/03/21 00:15 Dose: 5,000 unit Documented By: JACQUI Sodium Chloride (Ns) 1,000 mls @ 100 mls/hr IVCONT .Q10H [facility] Last Admin: 12/03/21 02:18 Dose: 100 mls/hr Documented By: JACQUI Methylprednisolone Sodium Succinate (Methylprednisolone Sod Succ 40 Mg/Ml Vial) 40 mg IVPUSH Q12H [facility] Last Admin: 12/03/21 00:15 Dose: 40 mg Documented By: JACQUI Ondansetron HCl (Ondansetron Hcl 4 Mg/2 Ml Vial) 4 mg IVPUSH Q8H PRN PRN Reason: Nausea and Vomiting Pharmacy Consult (Consult Rx Perform Med Rec) 1 each MISCELLANE ONCE PRN PRN Reason: Consult order Pharmacy Consult (Consult Rx Perform Med Rec) 1 each MISCELLANE ONCE PRN PRN Reason: Consult order Sodium Chloride (0.9 % Sodium Chloride Flush 3 Ml Syringe) 3 ml IVFLUSH QSHIFT [facility] Last Admin: 12/03/21 08:53 Dose: 3 ml Documented By: ERIKAOC Labs CBC & Chem 7: 12/03/21 06:33 12/03/21 06:33 Labs: Laboratory Results - last 24 hr 12/02/21 12/02/21 12/02/21 17:07 17:07 17:07 MCV 95.2 MCH 32.6 MCHC 34.2 RDW 15.9 Plt Count 137 L D MPV 9.9 Immature Gran % (Auto) 0.0 Neut % (Auto) 61.4 Lymph % (Auto) 29.3 [place] % (Auto) 8.9 Eos % (Auto) 0.0 Baso % (Auto) 0.4 Lymph # (Auto) 0.7 L [place] # (Auto) 0.2 Eos # (Auto) 0.0 Baso # (Auto) 0.0 Abs Immat Gran (auto) 0.00 Absolute Neuts (auto) 1.4 L Absolute Nucleated RBC 0.000 Nucleated RBC % (auto) 0.0 Neutrophils % (Manual) Band Neutrophils % Lymphocytes % (Manual) Monocytes % (Manual) Abs Neuts (Manual) Lymphocytes # (Manual) Platelet Estimate Plt Morphology Comment RBC Morphology Polychromasia Ovalocytes Jesús Cells Schistocytes Smear Tech's Comments VERIFIED D-Dimer High Sensitivty Anion Gap 14 Estim Creat Clear Calc 37.4 Estimated GFR 55 Random Glucose 114 Calcium 8.4 Magnesium 1.7 Total Bilirubin 0.5 AST 90 H ALT 37 Alkaline Phosphatase 89 Total Creatine Kinase 2593 H B-Natriuretic Peptide Total Protein 7.0 Albumin 3.0 L Urine Color Urine Appearance Urine pH Ur Specific [place] Urine Protein Urine Glucose (UA) Urine Ketones Urine Blood Urine Nitrite Ur Leukocyte Esterase Urine RBC Urine WBC Ur Squamous Epith Cells Urine Bacteria Hyaline Casts COVID-19 (TANISHA) Negative COVID-19 Clin Com See Note 12/02/21 12/02/21 12/02/21 17:07 17:07 19:33 MCV MCH MCHC RDW Plt Count MPV Immature Gran % (Auto) Neut % (Auto) Lymph % (Auto) [place] % (Auto) Eos % (Auto) Baso % (Auto) Lymph # (Auto) [place] # (Auto) Eos # (Auto) Baso # (Auto) Abs Immat Gran (auto) Absolute Neuts (auto) Absolute Nucleated RBC Nucleated RBC % (auto) Neutrophils % (Manual) Band Neutrophils % Lymphocytes % (Manual) Monocytes % (Manual) Abs Neuts (Manual) Lymphocytes # (Manual) Platelet Estimate Plt Morphology Comment RBC Morphology Polychromasia Ovalocytes Jesús Cells Schistocytes Smear Tech's Comments D-Dimer High Sensitivty 2733 Anion Gap Estim Creat Clear Calc Estimated GFR Random Glucose Calcium Magnesium Total Bilirubin AST ALT Alkaline Phosphatase Total Creatine Kinase B-Natriuretic Peptide 916 H Total Protein Albumin Urine Color Yellow Urine Appearance Clear Urine pH 5.5 Ur Specific [place] 1.020 Urine Protein 100 (2+) H Urine Glucose (UA) Negative Urine Ketones Negative Urine Blood Moderate (2+) H Urine Nitrite Negative Ur Leukocyte Esterase Negative Urine RBC 0-2 Urine WBC 0-5 Ur Squamous Epith Cells 0-2 Urine Bacteria None Seen Hyaline Casts 0-2 COVID-19 (TANISHA) COVID-19 Clin Com 12/03/21 12/03/21 06:33 06:33 MCV 96.5 MCH 33.1 H MCHC 34.3 RDW 15.9 Plt Count 131 L MPV 10.6 Immature Gran % (Auto) Cancelled Neut % (Auto) Cancelled Lymph % (Auto) Cancelled [place] % (Auto) Cancelled Eos % (Auto) Cancelled Baso % (Auto) Cancelled Lymph # (Auto) Cancelled [place] # (Auto) Cancelled Eos # (Auto) Cancelled Baso # (Auto) Cancelled Abs Immat Gran (auto) Cancelled Absolute Neuts (auto) Cancelled Absolute Nucleated RBC 0.000 Nucleated RBC % (auto) 0.0 Neutrophils % (Manual) 77 H Band Neutrophils % 0 L Lymphocytes % (Manual) 22 Monocytes % (Manual) 1 L Abs Neuts (Manual) 2.5 Lymphocytes # (Manual) 0.7 L Platelet Estimate SLIGHTLY DECREASED Plt Morphology Comment NORMAL RBC Morphology NOTED Polychromasia 1+ (0-2) Ovalocytes 1+ (5-14) Freedom Cells 1+ (0-2) Schistocytes 1+ (0-2) Smear Tech's Comments D-Dimer High Sensitivty Anion Gap 16 Estim Creat Clear Calc 34.9 Estimated GFR 51 Random Glucose 147 H Calcium 8.0 L Magnesium Total Bilirubin AST ALT Alkaline Phosphatase Total Creatine Kinase B-Natriuretic Peptide Total Protein Albumin Urine Color Urine Appearance Urine pH Ur Specific [place] Urine Protein Urine Glucose (UA) Urine Ketones Urine Blood Urine Nitrite Ur Leukocyte Esterase Urine RBC Urine WBC Ur Squamous Epith Cells Urine Bacteria Hyaline Casts COVID-19 (TANISHA) COVID-19 Clin Com Assessment and Plan (1) Syncope: Status: Acute (2) Rhabdomyolysis: Status: Acute Plan 76-year-old male with past medical history of COPD, CHF, CABG, who presents to the hospital with complaints of a syncopal episode syncope likely secondary to orthostatic hypotension, but given his extensive cardiac past medical history, a cardiac cause of his syncope cannot be ruled out he has slightly elevated troponin with no delta, no chest pain, EKG shows no ST T-wave changes suggestive of ACS - tele monitoring - cardiology consult pending orthostatic hypotension likely secondary to dehydration, decreased PO intake - continue IV fluids - repeat orthostatic vitals in am rhabdomyolysis CPK 2593 secondary to fall - continue IVF - follow CPK Acute COPD exacerbation reports shortness of breath, cough, and sputum production - continue IV Solu-Medrol, DuoNeb treatments elevated troponin no chest pain likely in setting of rhabdo, stress from fall CHF although has a elevated BNP but does not appear to be in volume overload - at this time will treat with IV fluids, monitor volume and respiratory status 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 Farias at [facility] CAD s/p CABG -Continue aspirin -Metoprolol on hold for orthostatic hypotension -Statin on hold for rhabdomyolysis Pancytopenia likely r/t underlying cancer/treatment -follow CBC DVT prophylaxi Heparin subQ Attending-Dr. Perry Patient requires ongoing inpatient hospitalization for workup secondary to syncope, treatment of orthostatic hypotension in COPD exacerbation Quality Stroke Does the patient have a stroke diagnosis?: No VTE Prior VTE?: No VTE Risk Level:: Medical - moderate - high VTE Device Contraindication: Treatment Not Indicated VTE Drug Contraindication: N/A - Med Ordered
--- NOTE | 2021-12-03 10:53 | CA_ITS ---
Transthoracic Echocardiogram Patient (Last, First, Middle): Laron Burns K Gender: Male Date of : 1945 Age: 76 Procedure Date: 12/03/2021 Procedure Type: Transthoracic Echocardiogram Location: [facility] [place] Height: 175.26 cm Weight: 53.07 kg BSA: 1.64 m2 Heart Rate: 78 bpm BP: 122 / 69 mmHg [employer]argo Service Supervisor: Referring MD: Theresa MARQUEZ Symptoms: syncope, elevated troponin Study Quality: Adequate ECG Rhythm: Sinus Conclusions: - The left ventricular systolic function is normal. The calculated ejection fraction is 68% by biplane method. - The basal inferior segment is akinetic. - There is mildly decreased right ventricular systolic function. - There is mild calcification of the aortic valve. Findings Left Ventricle Normal left ventricular cavity size. There is normal left ventricular wall thickness. The left ventricular systolic function is normal. The calculated ejection fraction is 68% by biplane method. There is evidence of regional wall motion abnormalities. Diastolic function is normal for age. Wall Motion Rest Echo Findings The basal inferior segment is akinetic. Right Ventricle Normal right ventricular cavity size. There is mildly decreased right ventricular systolic function. Atria Both atria are normal in size. Aortic Valve There is a normal trileaflet aortic valve. There is mild calcification of the aortic valve. There is no aortic valve stenosis. There is no aortic valve regurgitation. Mitral Valve The mitral valve appears normal. There is trace mitral valve regurgitation. There is no mitral valve stenosis. Pulmonic Valve The pulmonic valve is likely normal. Tricuspid Valve Normal tricuspid valve structure. There is trace tricuspid valve regurgitation. The pulmonary artery systolic pressure is normal. Great Vessels The aortic annulus, sinuses of valsalva, and asc aorta are normal in size. Venous The inferior vena cava is normal in size and collapses greater than 50% with inspiration. Pericardium/Pleural There is no evidence of pericardial effusion. Prior Study Comparison No significant change compared to prior study dated: 10/10/2019. Measurements 2D Linear Measurements IVSd: 0.94 0.6-0.9/0.6-1.0 cm LVIDd: 4.22 3.9-5.3/4.2-5.9 cm LVIDd Index: 2.57 2.4-3.2/2.2-3.1 cm/m2 LVIDs: 2.73 2.0-3.6 cm LVPWd: 1.01 0.7-1.1 cm LA Diam: 3.80 2.7-3.8/3.0-4.0 cm LAIDs Index: 2.32 1.5-2.3 cm/m2 LV Mass: 166.00 67-162/88-224 g LV Mass Index: 101.22 43-95/49-115 g/m2 LVOT Diam: 2.10 3.0+(-)1.3 cm 2D Systolic Function EF 4C: 66.10 >55% EF 2C: 68.50 >55% EF BiP: 67.60 >55% Mitral Valve MV Pk E: 0.63 MV PK A: 0.99 MV Decel Time: 155.00 E/A: 0.60 E'Lateral: 10.30 E'Medial: 5.44 E/E' Med: 11.70 E/E' Lat: 6.20 PHT: 45.00 MVA PHT: 4.89 Decel [place]: 4.10 Aortic Valve AoV Pk Bishop: 1.26 AoV Mn Bishop: 0.78 AoV VTI: 0.28 AoV Pk Grad: 6.00 Aov Mn Grad: 3.00 YOHANNES Cont.VTI: 3.27 LVOT LVOT Pk Bishop: 0.91 LVOT Mn Bishop: 0.63 LVOT VTI: 0.27 LVOT Pk Grad: 3.00 LVOT Mn Grad: 2.00 LVOT Diam: 2.10 LVOT Area: 3.46 Diastolic Function MV Pk E: 0.63 MV Pk A: 0.99 E/A: 0.60 E'Medial: 5.44 E/E' Med: 11.70 E' Laterial: 10.30 E/E' Lat: 6.20 Right Ventricle TAPSE (mm): 14.30 TVS' Bishop: 12.70 Tricuspid Valve TR Pk Bishop: 2.07 TR Pk Grad: 17.00 RA Press: 8.00 RVSP: 25.00 Great Vessels Aorta Sinus of Valsalva: 3.90 2.0-3.5 cm Ao Asc: 3.80 2.1-3.4 cm Pulmonary Valve PV Pk Bishop: 0.80 Peak PV Grad: 3.00 Updated in Other Vendor System with Status of Final Ramon Pérez MD electronically signed on 12/03/2021 3:21:30 PM with status of Final
[2021-12-03] MEDS: Acetaminophen 325 MG TABLET 650 MG PO ×2 (12:49→21:55)
--- NOTE | 2021-12-03 13:37 | MHC.CM.PN ---
unable to wake pt in ed ..called and spoke with his dgter rancho who is pts hcp she is flying in from [place] today and will arrive at 530.. she says that pt has elara ,and lifeline,pt is vax x 3 and plan is to take pt home when dcd
[2021-12-03] MEDS: Docusate Sodium 100 MG/10 ML LIQUID 50 MG PO (21:52)
--- NOTE | 2021-12-03 22:43 | PC.NURSE ---
PATIENT WAS GIVEN A BED BATH ,AND BEDDING CHANGE BY THIS PCT .
--- NOTE | 2021-12-03 23:18 | PC.NURSE ---
PATIENT PULLED OUT [place] CATH ,URINATE ON THE BED ,REFUSED ANOTHER [place] ALSO REFUSED URINAL ,I OFFER HIM A COMMODE ,OUT OF BED VOID LARGE AMOUNT OF URINE .
[2021-12-04] VITALS (10 sets, daily range): BP systolic 108–161; BP diastolic 52–81; PULSE 65–92; RESP 12–18; TEMP 36.4–36.9; O2SAT 93–100; BMI 20.5
[2021-12-04] MEDS: 0.9 % Sodium Chloride 1,000 ML 100 ML IVCONT (02:06)
--- NOTE | 2021-12-04 02:42 | PC.NURSE ---
PT COMFORTABLE THROUGHOUT THE DAY, BACK PAIN CONTROLLED WITH APAP. ORTHOS NEGATIVE THIS AM, PT STATED MILD LIGHTHEADEDNESS, THOUGH ABLE TO STAND INDEPENDENTLY AND STEADILY WITH NO ISSUE. PT NOW C/O L HIP PAIN FROM FALL, NEGATIVE CT ABD PELVIS YESTERDAY. PT PLACED IN HOSPITAL BED FOR COMFORT, HOSPITALIST CONTACTED RE: ONGOING HIP PAIN UNRELIEVED BY APAP.
[2021-12-04 05:00] LABS: Hematocrit 22.9 % (42.0-52.0); Hemoglobin 7.9 g/dl (14.0-18.0); Mean Corpuscular HGB Conc 34.5 g/dl (31.0-36.0); Mean Corpuscular Hemoglobin 33.5 pg (27.0-33.0); Mean Platelet Volume 11.1 fL (9.4-12.4); Platelet Count 136 X10*3/uL (160-400); Red Blood Count 2.36 X10*6/uL (4.60-5.80); Red Cell Distribution Width 16.2 % (11.0-16.0); White Blood Count 4.7 X10*3/uL (4.8-10.8)
[2021-12-04 08:36] LABS: Anion Gap 15 (12-20); Blood Urea Nitrogen 38 mg/dL (9-16); Carbon Dioxide 16 mmol/L (22-29); Chloride 115 mmol/L (96-108); Creatinine Clr Calc Pharmacy 44.4; Estimated Glomerular Filt Rate > 60; Glucose Random 176 mg/dL (60-115); Potassium 3.8 mmol/L (3.3-5.1); Sodium 142 mmol/L (135-145)
[2021-12-04] MEDS: Aspirin 81 MG TAB.CHEW PO (09:00)
[2021-12-04] MEDS: Cholecalciferol (Vitamin D3) 25 MCG TABLET PO (09:00)
[2021-12-04] MEDS: Folic Acid 1 MG TABLET PO (09:00)
[2021-12-04] MEDS: Ascorbic Acid 500 MG TABLET PO (09:00)
[2021-12-04] MEDS: Ferrous Sulfate 324 MG TABLET.DR PO (09:03)
--- NOTE | 2021-12-04 09:12 | PC.NURSE ---
pharmacy called for missing med
--- NOTE | 2021-12-04 09:23 | PC.NURSE ---
patient a&ox3, manager cardiac nsr 80s, orthostats being performed, pt c/o lt hip area pain, ivf dc'd per order, call hector within reach, will continue to monitor.
--- NOTE | 2021-12-04 09:27 | PC.NURSE ---
pt lungs clear, speaking in full sentences
[2021-12-04] MEDS: methylPREDNISolone Sod Succ 40 MG/ML VIAL IVPUSH ×3 (11:54→23:01)
[2021-12-04] MEDS: Pyridoxine HCl (Vitamin B6) 50 MG TABLET 100 MG PO (11:54)
[2021-12-04] MEDS: Heparin Sodium,Porcine 5,000 UNIT/ML VIAL 5000 UNIT SUBCUT ×3 (11:54→23:01)
--- NOTE | 2021-12-04 12:03 | PC.NURSE ---
patient a&ox3, pt medicated per order, call hector within reach, will continue to monitor.
--- NOTE | 2021-12-04 12:10 | P.CONCA_ITS ---
History of Present Illness History of Present Illness Date of Service: 12/04/21 Chief complaint: Syncope, Orthostatic Hypotension Narrative: This is a cardiology consultation regarding syncopal episode. It seems that the family were concerned about him as they had not heard from for 2 days or so. And the neighbor did a welfare check on him and found him on the floor. Per patient, he was coming out of the bathroom and he apparently fell down. Then it seems that he got up once but fell down again. It seems that was just so weak. Denies any clear symptoms like angina or shortness of breath or in fact anything else cardiac related. After this, he was admitted. He was also found to have rhabdomyolysis. Currently, feels okay. According daughter was at the bedside, he is getting weaker by the day. He was apparently on chemotherapy few weeks back and that made him very weak. That led to hospitalization as well. Subsequently, he has been put on immunotherapy for lung cancer and that is making him even weaker. Hence she is questioning if these are even necessary as they are tremendously affecting the quality of his life which is what she cares about the most. Per last office note by Dr. Rolle, he has a history of coronary disease and underwent bypass surgery in 2019. Also with diffuse vascular disease. Otherwise, there is a mention of low blood pressure in office notes at that time it seems that lisinopril, hydralazine had been held and the amlodipine dose was also decreased. According to the office note, he also had inferior Q-waves, sinus tachycardia, PVCs. Review of Systems Review of Systems: Yes all other systems are reviewed and are negative Constitutional: Constitutional: Reports as per HPI Eyes: Eyes: Reports as per HPI ENT: Reports as per HPI Cardiovascular: Cardiovascular: Reports as per HPI, Denies acrocyanosis, Denies cool extremities, Denies chest pain, Denies leg edema, Reports lightheadedness, Reports Loss of Consciousness, Denies palpitations and Denies dyspnea Respiratory: Respiratory: Reports as per HPI, Reports no additional respiratory complaints and Denies dyspnea Gastrointestinal: Gastrointestinal: Reports as per HPI and Reports no addition al gastrointestinal complaints Genitourinary: Genitourinary: Reports no additional male genitourinary complaints and Reports as per HPI Musculoskeletal: Musculoskeletal: Reports no additional musculoskeletal complaints and Reports as per HPI Integumentary/Breasts: Skin/Breast: Reports system reviewed and no additional complaints, except as docu Neurologic: Reports system reviewed and no additional complaints, except as documented and Reports as per HPI Psychiatric: Psychiatric: Reports no additional psychiatric complaints and Reports as per HPI Endocrine: Endocrine: Reports no additional endocrine complaints, Reports as per HPI and Denies palpitations Hematologic/Lymphatic: Hematologic/Lymphatic: Reports no additional hematologic/lymphatic complaints and Reports as per HPI Allergic/Immunologic: Allergic/Immunologic: Reports no additional allergic/immunologic complaints and Reports as per HPI [facility] Past Medical History Medical History (Updated 12/04/21 @ 12:16 by Ramon Pérez MD) Anemia Carotid artery occlusion Cigarette smoker COPD (chronic obstructive pulmonary disease) Coronary artery disease High cholesterol HTN (hypertension) Kidney stone Pneumothorax after biopsy (~2021) Family History Family History (Updated 12/04/21 @ 12:14 by Ramon Pérez MD) Father Bone cancer Other No family history of coronary artery disease Surgical History Surgical History History of bronchoscopy (~2021) History of CEA (carotid endarterectomy) (~2018) History of chest tube placement (~2021) History of colonoscopy (~2020) History of cystoscopy (~2020) History of esophagogastroduodenoscopy (EGD) (~2020) History of lithotripsy (~2002) History of lung biopsy (~2021) Hx of CABG (~2018) Social History Social History Household Members: None Housing: House Do you presently have visiting nurse or other home services: No Alcohol intake: former Patient Tobacco Use Status: Current everyday Tobacco user Tobacco use type: Cigarette Cigarette Packs Per Day: 0.5 Cigarettes Per Day: 10.0 Years Smoked: 50 Second Hand Smoke Exposure: No Use of substances other than those prescribed or required for medical reasons: No Advance Directives: Yes Advance Directives on File: Yes Advance Directives Date on File: 10/12/21 service: Yes Current occupational status: retired Meds Allergies Allergy/AdvReac Type Severity Reaction Status Date / Time No Known Allergies Allergy Verified 09/10/21 08:54 [No Known Allergies*] Active Medications: Current Medications Acetaminophen (Acetaminophen 325 Mg Tablet) 650 mg PO Q6H PRN PRN Reason: Pain, Mild (Pain Scale 1-3) Last Admin: 12/03/21 21:55 Dose: 650 mg Acetaminophen/Codeine Phosphate (Acetaminophen With Codeine # 3 Tablet) 1 tab PO Q4H PRN PRN Reason: Pain, Mild (Pain Scale 1-3) Last Admin: 12/04/21 05:30 Dose: 1 tab Albuterol/Ipratropium (Albuterol/Iprat 2.5/0.5mg 3 Ml Ampul.Neb) 3 ml INHALE RQ4H PRN PRN Reason: Shortness of Breath/Wheezing Albuterol/Ipratropium (Albuterol/Iprat 2.5/0.5mg 3 Ml Ampul.Neb) 3 ml INHALE RQ4H WHILE AWAKE [facility] Last Admin: 12/04/21 10:19 Dose: Not Given Ascorbic Acid (Ascorbic Acid 500 Mg Tablet) 500 mg PO DAILY [facility] Last Admin: 12/04/21 09:00 Dose: 500 mg Aspirin (Aspirin 81 Mg Tab.Chew) 81 mg PO DAILY [facility] Last Admin: 12/04/21 09:00 Dose: 81 mg Docusate Sodium (Docusate Sodium 100 Mg Capsule) 100 mg PO DAILY PRN PRN Reason: Constipation Docusate Sodium (Docusate Sodium 100 Mg/10 Ml Liquid) 50 mg PO BID [facility] Last Admin: 12/04/21 09:06 Dose: Not Given Ferrous Sulfate (Ferrous Sulfate 324 Mg Tablet.Dr) 324 mg PO DAILY [facility] Last Admin: 12/04/21 09:03 Dose: 324 mg Folic Acid (Folic Acid 1 Mg Tablet) 1 mg PO DAILY [facility] Last Admin: 12/04/21 09:00 Dose: 1 mg Heparin Sodium (Porcine) (Heparin Sodium,Porcine 5,000 Unit/Ml Vial) 5,000 unit SUBCUT Q12H [facility] Last Admin: 12/04/21 11:54 Dose: 5,000 unit Methylprednisolone Sodium Succinate (Methylprednisolone Sod Succ 40 Mg/Ml Vial) 40 mg IVPUSH Q12H [facility] Last Admin: 12/04/21 11:54 Dose: 40 mg Ondansetron HCl (Ondansetron Hcl 4 Mg/2 Ml Vial) 4 mg IVPUSH Q8H PRN PRN Reason: Nausea and Vomiting Pharmacy Consult (Consult Rx Perform Med Rec) 1 each MISCELLANE ONCE PRN PRN Reason: Consult order Pharmacy Consult (Consult Rx Perform Med Rec) 1 each MISCELLANE ONCE PRN PRN Reason: Consult order Pyridoxine HCl (Pyridoxine Hcl (Vitamin B6) 50 Mg Tablet) 100 mg PO DAILY [facility] Last Admin: 12/04/21 11:54 Dose: 100 mg Sodium Chloride (0.9 % Sodium Chloride Flush 3 Ml Syringe) 3 ml IVFLUSH QSHIFT [facility] Last Admin: 12/04/21 09:04 Dose: Not Given Vitamin D (Cholecalciferol (Vitamin D3) 25 Mcg Tablet) 25 mcg PO DAILY [facility] Last Admin: 12/04/21 09:00 Dose: 25 mcg Home Medications Medication Instructions Recorded Confirmed Last Taken Type aspirin 81 mg chewable tablet 81 mg PO DAILY 05/27/21 12/02/21 10/06/21 History ascorbate calcium (vitamin C) 500 500 mg PO DAILY 06/11/21 12/02/21 10/06/21 H istory mg tablet cholecalciferol (vitamin D3) 25 25 mcg PO DAILY 06/11/21 12/02/21 10/06/21 History mcg (1,000 unit) capsule ferrous sulfate 324 mg (65 mg 324 mg PO DAILY 06/11/21 12/02/21 10/06/21 History iron) tablet,delayed release albuterol sulfate 90 mcg/actuation 2 puff inhalation Q4-6H PRN 10/07/21 12/02/21 Unknown History aerosol inhaler wheezing docusate sodium 50 mg capsule 50 mg PO BID 10/07/21 12/02/21 10/07/21 History folic acid 1 mg tablet 1 mg PO DAILY 10/07/21 12/02/21 10/06/21 History clobetasol 0.05 % topical ointment 1 appl topical BID PRN RASH ON 10/09/21 12/02/21 Unknown History ARMS AND LEGS Physical Exam Vital Signs: Vital Signs: Last Vital Signs Temp 98.5 F 12/04/21 05:03 Pulse 89 12/04/21 09:23 Resp 16 12/04/21 08:57 BP 161/81 H 12/04/21 09:23 Pulse Ox 98 12/04/21 08:57 O2 Del Method 12/04/21 08:57 BMI result Body Mass Index 17.4 Const: General: comfortable and no acute distress Orientation/consciousness: patient oriented x3 HEENT: Other: Unremarkable Head: Yes normal to inspection Neck: Neck: Yes normal visual inspection Chest: Chest palpation & inspection: normal inspection of the chest Resp: Other: few scattered crackles Cardio: Palpation: normal PMI Heart sounds: S1 normal heart sound present, S2 normal heart sound present, no gallops, Murmur heart sound present systolic early, II/ and at the right sternal border and no rubs GI: Palpation (GI): Soft to palpation Back/Spine/Pelvis: Other: unremarkable Skin: General skin exam: no rashes or lesions noted Neuro: General: patient oriented x3 Extrem: General: Yes normal to inspection Psych: Mental Status: mental status grossly normal Objective Labs and Meds Result diagrams: 12/04/21 04:45 12/04/21 07:58 Lab results: Laboratory Results - last 24 hr 12/04/21 12/04/21 04:45 07:58 WBC 4.7 L RBC 2.36 L Hgb 7.9 L Hct 22.9 L MCV 97.0 MCH 33.5 H MCHC 34.5 RDW 16.2 H Plt Count 136 L MPV 11.1 Absolute Nucleated RBC 0.000 Nucleated RBC % (auto) 0.0 Sodium 142 Potassium 3.8 Chloride 115 H Carbon Dioxide 16 L Anion Gap 15 BUN 38 H Creatinine 1.07 Estim Creat Clear Calc 44.4 Estimated GFR > 60 Random Glucose 176 H Calcium 8.0 L Total Creatine Kinase 948 H D ECG Interpretation: EKG with sinus tachycardia at 113/Min; no significant ST-T changes and otherwise unremarkable. Assessment and Plan (1) Syncope: Qualifiers: Syncope type: unspecified Qualified Code(s): R55 - Syncope and collapse Status: Acute (2) Rhabdomyolysis: Qualifiers: Rhabdomyolysis type: traumatic Encounter type: initial encounter Qualified Code(s): T79.6XXA - Traumatic ischemia of muscle, initial encounter Status: Acute (3) Orthostatic hypotension: Status: Acute (4) Hx of CABG: Status: Acute Plan Labs reviewed. Hemoglobin 7.9.; prior to that 8.6. Seems to be at his baseline. Potassium 3.8. Creatinine 1.07. BUN 38. Creatinine kinase 2593 followed by 2148 followed by 948. High sensitivity troponin 63 followed by 78. Echocardiogram with LVEF 68%. Basal inferior akinesis. Mild aortic valve calcification mild reduction RV function. Overall, suspect syncopal episodes from generalized weakness, failure to thrive, blood pressure going down extra. Highly unlikely that he had a cardiac event. Discussed about this with family. They feel that every time he gets chemotherapy and more recently immunotherapy he is getting worse. It seems that he already got hydration when he came in. Otherwise, can keep him on aspirin from cardiac standpoint. Hold off statins till the rhabdomyolysis is resolved. No specific ischemic workup is necessary in this setting. Discussed with daughter at the bedside; she states that she wants to only focus on quality of care for him and not the length of life. Discussed with Theresa Mejia. Procedures Date of Service Date of Service: 12/04/21
--- NOTE | 2021-12-04 13:16 | HO.PM.IMPN ---
Subjective Subjective Date of Service: 12/04/21 Interval History: Seen and examined this morning Follow-up for syncope, suresh feeling better this morning having some pain on his left side Review of Systems Review of Systems: Yes all other systems are reviewed and are negative Constitutional Constitutional: Denies chills and Denies fever(s) ENT Ears, Nose, Mouth, and Throat: Reports dizziness Cardiovascular Cardiovascular: Denies chest pain, Denies palpitations and Denies dyspnea Respiratory Respiratory: Denies cough and Denies dyspnea Gastrointestinal Gastrointestinal: Denies abdominal pain Neurologic Neurologic: Reports dizziness Endocrine Endocrine: Denies palpitations Physical Exam Vital Signs: Vital Signs: Last Vital Signs Temp 98.5 F 12/04/21 05:03 Pulse 89 12/04/21 09:23 Resp 16 12/04/21 08:57 BP 161/81 H 12/04/21 09:23 Pulse Ox 98 12/04/21 08:57 O2 Del Method 12/04/21 08:57 BMI result Body Mass Index 17.4 Const: General: cooperative, comfortable, alert and awake Nutritional Appearance: thin Resp: Effort & Inspection: normal respiratory effort and able to speak in complete sentences Auscultation: diminished lung sounds Cardio: Rate: regular rate Heart sounds: S1 normal heart sound present and S2 normal heart sound present GI: Inspection: No distended Palpation (GI): Soft to palpation and nontender Extrem: General: Yes no pedal edema Objective Data Active Medications Acetaminophen (Acetaminophen 325 Mg Tablet) 650 mg PO Q6H PRN PRN Reason: Pain, Mild (Pain Scale 1-3) Last Admin: 12/03/21 21:55 Dose: 650 mg Documented By: JAEL Acetaminophen/Codeine Phosphate (Acetaminophen With Codeine # 3 Tablet) 1 tab PO Q4H PRN PRN Reason: Pain, Mild (Pain Scale 1-3) Last Admin: 12/04/21 05:30 Dose: 1 tab Documented By: KAMERON Albuterol/Ipratropium (Albuterol/Iprat 2.5/0.5mg 3 Ml Ampul.Neb) 3 ml INHALE RQ4H PRN PRN Reason: Shortness of Breath/Wheezing Albuterol/Ipratropium (Albuterol/Iprat 2.5/0.5mg 3 Ml Ampul.Neb) 3 ml INHALE RQ4H WHILE AWAKE [facility] Last Admin: 12/04/21 10:19 Dose: Not Given Documented By: CARL Non-Admin Reason: See Note Ascorbic Acid (Ascorbic Acid 500 Mg Tablet) 500 mg PO DAILY [facility] Last Admin: 12/04/21 09:00 Dose: 500 mg Documented By: MIKAYLA Aspirin (Aspirin 81 Mg Tab.Chew) 81 mg PO DAILY [facility] Last Admin: 12/04/21 09:00 Dose: 81 mg Documented By: MIKAYLA Docusate Sodium (Docusate Sodium 100 Mg Capsule) 100 mg PO DAILY PRN PRN Reason: Constipation Docusate Sodium (Docusate Sodium 100 Mg/10 Ml Liquid) 50 mg PO BID [facility] Last Admin: 12/04/21 09:06 Dose: Not Given Documented By: MIKAYLA Non-Admin Reason: Patient Refused Ferrous Sulfate (Ferrous Sulfate 324 Mg Tablet.) 324 mg PO DAILY [facility] Last Admin: 12/04/21 09:03 Dose: 324 mg Documented By: MIKAYLA Folic Acid (Folic Acid 1 Mg Tablet) 1 mg PO DAILY [facility] Last Admin: 12/04/21 09:00 Dose: 1 mg Documented By: MIKAYLA Heparin Sodium (Porcine) (Heparin Sodium,Porcine 5,000 Unit/Ml Vial) 5,000 unit SUBCUT Q12H [facility] Last Admin: 12/04/21 11:54 Dose: 5,000 unit Documented By: CARL Methylprednisolone Sodium Succinate (Methylprednisolone Sod Succ 40 Mg/Ml Vial) 40 mg IVPUSH Q12H [facility] Last Admin: 12/04/21 11:54 Dose: 40 mg Documented By: CARL Ondansetron HCl (Ondansetron Hcl 4 Mg/2 Ml Vial) 4 mg IVPUSH Q8H PRN PRN Reason: Nausea and Vomiting Pharmacy Consult (Consult Rx Perform Med Rec) 1 each MISCELLANE ONCE PRN PRN Reason: Consult order Pharmacy Consult (Consult Rx Perform Med Rec) 1 each MISCELLANE ONCE PRN PRN Reason: Consult order Pyridoxine HCl (Pyridoxine Hcl (Vitamin B6) 50 Mg Tablet) 100 mg PO DAILY [facility] Last Admin: 12/04/21 11:54 Dose: 100 mg Documented By: CARL Sodium Chloride (0.9 % Sodium Chloride Flush 3 Ml Syringe) 3 ml IVFLUSH QSHIFT [facility] Last Admin: 12/04/21 09:04 Dose: Not Given Documented By: MIKAYLA Non-Admin Reason: IV Running Vitamin D (Cholecalciferol (Vitamin D3) 25 Mcg Tablet) 25 mcg PO DAILY [facility] Last Admin: 12/04/21 09:00 Dose: 25 mcg Documented By: MIKAYLA Labs CBC & Chem 7: 12/04/21 04:45 12/04/21 07:58 Labs: Laboratory Results - last 24 hr 12/04/21 12/04/21 04:45 07:58 MCV 97.0 MCH 33.5 H MCHC 34.5 RDW 16.2 H Plt Count 136 L MPV 11.1 Absolute Nucleated RBC 0.000 Nucleated RBC % (auto) 0.0 Anion Gap 15 Estim Creat Clear Calc 44.4 Estimated GFR > 60 Random Glucose 176 H Calcium 8.0 L Total Creatine Kinase 948 H D Assessment and Plan (1) Syncope: Status: Acute (2) COPD with acute exacerbation: Status: Acute (3) Rhabdomyolysis: Status: Acute Plan 76-year-old male with past medical history of COPD, CHF, CABG, who presents to the hospital with complaints of a syncopal episode syncope likely secondary to orthostasis he has slightly elevated troponin with no delta, no chest pain, EKG shows no ST T-wave changes suggestive of ACS Seen by Cardiology, not likely cardiac event that led to syncope. No further workup indicated at this time orthostatic hypotension likely secondary to dehydration, decreased PO intake s/p IVF repeat orthostatic BPs today negative but patient still symptomatic. denies dizziness at rest -PT eval pending rhabdomyolysis. improving CPK 2593 down to 948 secondary to fall Acute COPD exacerbation reports shortness of breath, cough, and sputum production - continue IV Solu-Medrol - transitioned to p.o. prednisone in a.m. 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 Farias at [facility] - continue outpatient follow up CAD s/p CABG -Continue aspirin -Metoprolol on hold for orthostatic hypotension -Statin on hold for rhabdomyolysis Pancytopenia likely r/t underlying cancer/treatment CBC trending down although still within patient baseline -may be secondary to dilution from IVF -follow CBC DVT prophylaxis Heparin subQ Attending-Dr. Perry Patient requires ongoing inpatient hospitalization for workup secondary to syncope, treatment of orthostatic hypotension and COPD exacerbation Quality Stroke Does the patient have a stroke diagnosis?: No VTE Prior VTE?: No VTE Risk Level:: Medical - moderate - high VTE Device Contraindication: Treatment Not Indicated VTE Drug Contraindication: N/A - Med Ordered
[2021-12-04] MEDS: Albuterol/Iprat 2.5/0.5MG 3 ML AMPUL.NEB INHALE ×2 (14:23→20:04)
--- NOTE | 2021-12-04 14:23 | PC.NURSE ---
rt at bedside
[2021-12-04] MEDS: 0.9 % Sodium Chloride Flush 3 ML SYRINGE IVFLUSH ×2 (15:53→20:30)
--- NOTE | 2021-12-04 19:04 | PC.NURSE ---
report given, pt ready to be transported to floor after he finishes eating dinner
[2021-12-04] MEDS: Docusate Sodium 100 MG/10 ML LIQUID 50 MG PO (20:31)
[2021-12-05] VITALS (10 sets, daily range): BP systolic 112–159; BP diastolic 63–71; PULSE 66–101; RESP 16–20; TEMP 35.6–36.6; O2SAT 96–100
--- NOTE | 2021-12-05 00:16 | PM.EVENT ---
Event Note Date of Service: 12/05/21 Event Note: pt had 16 beats of Vtach no symptoms will obtian Mag and BMP and tx accordingly
[2021-12-05] MEDS: Magnesium Sulfate/H2O 2 GM/50 ML PIGGYBACK IV (00:31)
[2021-12-05] MEDS: Potassium Chloride Packet 20 MEQ PACKET 40 MEQ PO ×2 (00:43→02:47)
[2021-12-05 01:27] LABS: Anion Gap 12 (12-20); Blood Urea Nitrogen 33 mg/dL (9-16); Calcium 8.2 mg/dL (8.4-10.2); Carbon Dioxide 19 mmol/L (22-29); Chloride 110 mmol/L (96-108); Creatinine Clr Calc Pharmacy 48.1; Estimated Glomerular Filt Rate > 60; Glucose Random 211 mg/dL (60-115); Magnesium 2.1 mg/dL (1.6-2.6); Potassium 3.3 mmol/L (3.3-5.1); Sodium 138 mmol/L (135-145)
[2021-12-05 07:38] LABS: Anion Gap 11 (12-20); Blood Urea Nitrogen 29 mg/dL (9-16); Calcium 8.3 mg/dL (8.4-10.2); Carbon Dioxide 19 mmol/L (22-29); Chloride 113 mmol/L (96-108); Creatinine Clr Calc Pharmacy 53.7; Estimated Glomerular Filt Rate > 60; Glucose Random 162 mg/dL (60-115); Potassium 4.2 mmol/L (3.3-5.1); Sodium 139 mmol/L (135-145)
[2021-12-05 08:06] LABS: Hematocrit 22.9 % (42.0-52.0); Hemoglobin 7.8 g/dl (14.0-18.0); Mean Corpuscular HGB Conc 34.1 g/dl (31.0-36.0); Mean Corpuscular Hemoglobin 32.6 pg (27.0-33.0); Mean Corpuscular Volume 95.8 fL (80.0-98.0); Mean Platelet Volume 11.1 fL (9.4-12.4); Platelet Count 150 X10*3/uL (160-400); Red Blood Count 2.39 X10*6/uL (4.60-5.80); Red Cell Distribution Width 16.6 % (11.0-16.0); White Blood Count 6.6 X10*3/uL (4.8-10.8)
[2021-12-05] MEDS: Cholecalciferol (Vitamin D3) 25 MCG TABLET PO (09:19)
[2021-12-05] MEDS: 0.9 % Sodium Chloride Flush 3 ML SYRINGE IVFLUSH ×3 (09:19→21:05)
[2021-12-05] MEDS: Docusate Sodium 100 MG/10 ML LIQUID 50 MG PO ×2 (09:19→21:04)
[2021-12-05] MEDS: predniSONE 20 MG TABLET 40 MG PO (09:20)
[2021-12-05] MEDS: Ferrous Sulfate 324 MG TABLET.DR PO (09:20)
[2021-12-05] MEDS: Folic Acid 1 MG TABLET PO (09:20)
[2021-12-05] MEDS: Metoprolol Tartrate 12.5 MG HALFTAB PO ×2 (09:20→21:04)
[2021-12-05] MEDS: Aspirin 81 MG TAB.CHEW PO (09:20)
[2021-12-05] MEDS: Pyridoxine HCl (Vitamin B6) 50 MG TABLET 100 MG PO (09:20)
[2021-12-05] MEDS: Ascorbic Acid 500 MG TABLET PO (09:20)
--- NOTE | 2021-12-05 11:08 | HO.PM.IMPN ---
Subjective Subjective Date of Service: 12/05/21 Interval History: seen and examined this morning follow up for syncope, rhabdo, JOSE ALFREDO had 16 beat VTACH overnight, pt asymptomatic feels well this morning, was able to ambulating with walker to bathroom without dizziness no chest pain, SOB, abdominal pain Review of Systems Review of Systems: Yes all other systems are reviewed and are negative Constitutional Constitutional: Denies chills and Denies fever(s) ENT Ears, Nose, Mouth, and Throat: Denies dizziness Cardiovascular Cardiovascular: Denies chest pain, Denies palpitations and Denies dyspnea Respiratory Respiratory: Denies cough and Denies dyspnea Gastrointestinal Gastrointestinal: Denies abdominal pain, Denies nausea and Denies vomiting Neurologic Neurologic: Denies dizziness Endocrine Endocrine: Denies palpitations Physical Exam Vital Signs: Vital Signs: Last Vital Signs Temp 96.0 F L 12/05/21 07:53 Pulse 66 12/05/21 07:53 Resp 20 12/05/21 07:53 BP 159/71 H 12/05/21 07:53 Pulse Ox 100 12/05/21 07:53 O2 Del Method 12/05/21 07:53 BMI result Body Mass Index 20.5 Const: General: cooperative, comfortable, alert and awake Nutritional Appearance: thin Resp: Effort & Inspection: normal respiratory effort and able to speak in complete sentences Auscultation: diminished lung sounds Cardio: Rate: regular rate Heart sounds: S1 normal heart sound present and S2 normal heart sound present GI: Inspection: No distended Palpation (GI): Soft to palpation and nontender Skin: Other: left arm bruising/skin tears Extrem: General: Yes no pedal edema Objective Data Active Medications Acetaminophen (Acetaminophen 325 Mg Tablet) 650 mg PO Q6H PRN PRN Reason: Pain, Mild (Pain Scale 1-3) Last Admin: 12/03/21 21:55 Dose: 650 mg Documented By: JAEL Acetaminophen/Codeine Phosphate (Acetaminophen With Codeine # 3 Tablet) 1 tab PO Q4H PRN PRN Reason: Pain, Mild (Pain Scale 1-3) Last Admin: 12/05/21 09:22 Dose: 1 tab Documented By: BOGDAN Albuterol/Ipratropium (Albuterol/Iprat 2.5/0.5mg 3 Ml Ampul.Neb) 3 ml INHALE RQ4H PRN PRN Reason: Shortness of Breath/Wheezing Albuterol/Ipratropium (Albuterol/Iprat 2.5/0.5mg 3 Ml Ampul.Neb) 3 ml INHALE RQ4H WHILE AWAKE [facility] Last Admin: 12/05/21 07:45 Dose: Not Given Documented By: MADDIE Non-Admin Reason: Patient Refused Ascorbic Acid (Ascorbic Acid 500 Mg Tablet) 500 mg PO DAILY [facility] Last Admin: 12/05/21 09:20 Dose: 500 mg Documented By: BOGDAN Aspirin (Aspirin 81 Mg Tab.Chew) 81 mg PO DAILY [facility] Last Admin: 12/05/21 09:20 Dose: 81 mg Documented By: BOGDAN Docusate Sodium (Docusate Sodium 100 Mg Capsule) 100 mg PO DAILY PRN PRN Reason: Constipation Docusate Sodium (Docusate Sodium 100 Mg/10 Ml Liquid) 50 mg PO BID [facility] Last Admin: 12/05/21 09:19 Dose: 50 mg Documented By: BOGDAN Ferrous Sulfate (Ferrous Sulfate 324 Mg Tablet.) 324 mg PO DAILY [facility] Last Admin: 12/05/21 09:20 Dose: 324 mg Documented By: BOGDAN Folic Acid (Folic Acid 1 Mg Tablet) 1 mg PO DAILY [facility] Last Admin: 12/05/21 09:20 Dose: 1 mg Documented By: BOGDAN Heparin Sodium (Porcine) (Heparin Sodium,Porcine 5,000 Unit/Ml Vial) 5,000 unit SUBCUT Q12H [facility] Last Admin: 12/04/21 23:01 Dose: 5,000 unit Documented By: SHANTELLE Metoprolol Tartrate (Metoprolol Tartrate 12.5 Mg Halftab) 12.5 mg PO BID [facility]; Protocol Last Admin: 12/05/21 09:20 Dose: 12.5 mg Documented By: BOGDAN Ondansetron HCl (Ondansetron Hcl 4 Mg/2 Ml Vial) 4 mg IVPUSH Q8H PRN PRN Reason: Nausea and Vomiting Pharmacy Consult (Consult Rx Perform Med Rec) 1 each MISCELLANE ONCE PRN PRN Reason: Consult order Pharmacy Consult (Consult Rx Perform Med Rec) 1 each MISCELLANE ONCE PRN PRN Reason: Consult order Prednisone (Prednisone 20 Mg Tablet) 40 mg PO DAILY [facility] Last Admin: 08/28/22 09:20 Dose: 40 mg Documented By: BOGDAN Pyridoxine HCl (Pyridoxine Hcl (Vitamin B6) 50 Mg Tablet) 100 mg PO DAILY [facility] Last Admin: 12/05/21 09:20 Dose: 100 mg Documented By: BOGDAN Sodium Chloride (0.9 % Sodium Chloride Flush 3 Ml Syringe) 3 ml IVFLUSH QSHIFT [facility] Last Admin: 12/05/21 09:19 Dose: 3 ml Documented By: BOGDAN Vitamin D (Cholecalciferol (Vitamin D3) 25 Mcg Tablet) 25 mcg PO DAILY [facility] Last Admin: 12/05/21 09:19 Dose: 25 mcg Documented By: BOGDAN Labs CBC & Chem 7: 12/05/21 06:37 12/05/21 06:37 Labs: Laboratory Results - last 24 hr 12/05/21 12/05/21 12/05/21 01:00 06:37 06:37 MCV 95.8 MCH 32.6 MCHC 34.1 RDW 16.6 H Plt Count 150 L MPV 11.1 Absolute Nucleated RBC 0.000 Nucleated RBC % (auto) 0.0 Anion Gap 12 11 L Estim Creat Clear Calc 48.1 53.7 Estimated GFR > 60 > 60 Random Glucose 211 H 162 H Calcium 8.2 L 8.3 L Magnesium 2.1 Total Creatine Kinase 529 H D Assessment and Plan (1) Syncope: Status: Acute (2) Rhabdomyolysis: Status: Acute (3) Fall: Status: Acute (4) NSVT (nonsustained ventricular tachycardia): Status: Acute Plan 76-year-old male with past medical history of COPD, CHF, CABG, who presents to the hospital with complaints of a syncopal episode NSVT episode overnight, patient asymptomatic Received Magnesium and potassium K 4.2, magnesium 2.1 -will resume low-dose beta-patricia -tele monitoring -goal to keep potassium > 4 and magnesium >2 Hyperchloremic metabolic acidosis Likely secondary to IV fluid, fluids d/c Bicarb improving -Follow BMP syncope likely secondary to orthostasis he has slightly elevated troponin with no delta, no chest pain, EKG shows no ST T-wave changes suggestive of ACS Seen by Cardiology, not likely cardiac event that led to syncope. No further workup indicated at this time orthostatic hypotension likely secondary to dehydration, decreased PO intake improved s/p IVF able to ambulate without dizziness -PT eval pending rhabdomyolysis. improving CPK trending down secondary to fall Acute COPD exacerbation Improving. on room air - continue IV Solu-Medrol - transitioned to p.o. prednisone - continue DuoNeb treatments elevated troponin no chest pain likely in setting of rhabdo, stress from fall Seen by Cardiology, no further workup indicated Elevated BNP although has a elevated BNP but does not appear to be in volume overload 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 Farias at [facility] - continue outpatient follow up CAD s/p CABG -Continue aspirin -Low dose BB resumed due to NSVT, uptitrate dose as BP asllows -Statin on hold for rhabdomyolysis Pancytopenia likely r/t underlying cancer/treatment H/H trending down but still within baseline, no evidence of acute bleeding -stool occult pending -follow CBC DVT prophylaxis Heparin subQ PT eval pending Attending-Dr. Maria Patient requires ongoing inpatient hospitalization for workup secondary to syncope, treatment of orthostatic hypotension and COPD exacerbation, tele monitoring for NSVT Quality Stroke Does the patient have a stroke diagnosis?: No VTE Prior VTE?: No VTE Risk Level:: Medical - moderate - high VTE Device Contraindication: Treatment Not Indicated VTE Drug Contraindication: N/A - Med Ordered
--- NOTE | 2021-12-05 11:17 | PM.PNCARD ---
Subjective Subjective Date of Service: 12/05/21 Interval history: He states he feels fine. Somewhat weak but no cardiac symptoms. Review of Systems Review of Systems Yes all other systems are reviewed and are negative Constitutional: Reports as per HPI Eyes: Reports as per HPI Reports as per HPI Cardiovascular: Reports as per HPI, Denies acrocyanosis, Denies cool extremities, Denies chest pain, Denies leg edema, Denies lightheadedness, Denies palpitations and Denies dyspnea Respiratory: Reports as per HPI, Reports no additional respiratory complaints and Denies dyspnea Gastrointestinal: Reports as per HPI and Reports no additional gastrointestinal complaints Genitourinary: Reports no additional male genitourinary complaints and Reports as per HPI Musculoskeletal: Reports no additional musculoskeletal complaints and Reports as per HPI Skin/Breast: Reports system reviewed and no additional complaints, except as docu Reports system reviewed and no additional complaints, except as documented and Reports as per HPI Psychiatric: Reports no additional psychiatric complaints and Reports as per HPI Endocrine: Reports no additional endocrine complaints, Reports as per HPI and Denies palpitations Hematologic/Lymphatic: Reports no additional hematologic/lymphatic complaints and Reports as per HPI Allergic/Immunologic: Reports no additional allergic/immunologic complaints and Reports as per HPI Physical Exam Vital Signs: Last Vital Signs Temp 96.0 F L 12/05/21 07:53 Pulse 66 12/05/21 07:53 Resp 20 12/05/21 07:53 BP 159/71 H 12/05/21 07:53 Pulse Ox 100 12/05/21 07:53 O2 Del Method 12/05/21 07:53 BMI result Body Mass Index 20.5 Const General: comfortable and no acute distress Orientation/consciousness: patient oriented x3 HEENT Other: Unremarkable Head: Yes normal to inspection Neck Neck: Yes normal visual inspection Chest Chest palpation & inspection: normal inspection of the chest Resp Auscultation: clear to auscultation bilaterally Cardio Palpation: normal PMI Heart sounds: S1 normal heart sound present, S2 normal heart sound present, no gallops, no murmurs and no rubs GI Palpation (GI): Soft to palpation Back/Spine/Pelvis Other: unremarkable Skin General skin exam: no rashes or lesions noted Neuro General: patient oriented x3 Extrem General: Yes normal to inspection Psych Mental Status: mental status grossly normal Objective Labs and Meds Result diagrams: 12/05/21 06:37 12/05/21 06:37 Lab results: Laboratory Results - last 24 hr 12/05/21 12/05/21 12/05/21 01:00 06:37 06:37 WBC 6.6 RBC 2.39 L Hgb 7.8 L Hct 22.9 L MCV 95.8 MCH 32.6 MCHC 34.1 RDW 16.6 H Plt Count 150 L MPV 11.1 Absolute Nucleated RBC 0.000 Nucleated RBC % (auto) 0.0 Sodium 138 139 Potassium 3.3 4.2 D Chloride 110 H 113 H Carbon Dioxide 19 L 19 L Anion Gap 12 11 L BUN 33 H 29 H Creatinine 1.16 1.04 Estim Creat Clear Calc 48.1 53.7 Estimated GFR > 60 > 60 Random Glucose 211 H 162 H Calcium 8.2 L 8.3 L Magnesium 2.1 Total Creatine Kinase 529 H D Progress Note: A&P Assessment and plan (1) Syncope: Status: Acute (2) Rhabdomyolysis: Status: Acute (3) Orthostatic hypotension: Status: Acute (4) Hx of CABG: Status: Acute (5) NSVT (nonsustained ventricular tachycardia): Status: Acute Plan Labs reviewed including troponins, CK and cardiac BNP. Pattern consistent with rhabdomyolysis. Echocardiogram with LVEF 68%. Basal inferior akinesis. Mild aortic valve calcification mild reduction RV function. Overall, suspect syncopal episodes from generalized weakness, failure to thrive, blood pressure going down extra. Highly unlikely that he had a cardiac event. On telemetry, there is 1 episode of NSVT-about 16 beats. Monomorphic. Correct electrolytes. Resume beta-blockers. If recurrent, can readdress. Discussed yesterday with patient's daughter who stated that she only cares about quality of life rather than length of life. Discussed with Theresa Mejia. Time Spent With Patient Time: Total time spent is greater than 50% in coordination of care (as documented) at patient's floor/unit and/or counseling patient: 35min. Progress Note: Quality Stroke Does the patient have a stroke diagnosis?: No Procedures Date of Service Date of Service: 12/05/21
[2021-12-05] MEDS: Albuterol/Iprat 2.5/0.5MG 3 ML AMPUL.NEB INHALE ×3 (11:39→18:53)
[2021-12-05] MEDS: Heparin Sodium,Porcine 5,000 UNIT/ML VIAL 5000 UNIT SUBCUT ×2 (11:59→23:24)
[2021-12-06] VITALS (13 sets, daily range): BP systolic 119–173; BP diastolic 57–79; PULSE 61–96; RESP 16–20; TEMP 36.6–37.3; O2SAT 97–100
[2021-12-06 06:22] LABS: Anion Gap 11 (12-20); Blood Urea Nitrogen 28 mg/dL (9-16); Calcium 8.3 mg/dL (8.4-10.2); Carbon Dioxide 20 mmol/L (22-29); Chloride 113 mmol/L (96-108); Creatinine Clr Calc Pharmacy 55.3; Estimated Glomerular Filt Rate > 60; Glucose Random 100 mg/dL (60-115); Potassium 3.9 mmol/L (3.3-5.1); Sodium 140 mmol/L (135-145)
[2021-12-06] MEDS: Albuterol/Iprat 2.5/0.5MG 3 ML AMPUL.NEB INHALE ×3 (07:32→19:01)
[2021-12-06] MEDS: Cholecalciferol (Vitamin D3) 25 MCG TABLET PO (10:20)
[2021-12-06] MEDS: Metoprolol Tartrate 12.5 MG HALFTAB PO ×2 (10:20→20:20)
[2021-12-06] MEDS: predniSONE 20 MG TABLET 40 MG PO (10:20)
[2021-12-06] MEDS: Aspirin 81 MG TAB.CHEW PO (10:20)
[2021-12-06] MEDS: Folic Acid 1 MG TABLET PO (10:20)
[2021-12-06] MEDS: Ascorbic Acid 500 MG TABLET PO (10:20)
[2021-12-06] MEDS: Pyridoxine HCl (Vitamin B6) 50 MG TABLET 100 MG PO (10:20)
[2021-12-06] MEDS: Heparin Sodium,Porcine 5,000 UNIT/ML VIAL 5000 UNIT SUBCUT ×2 (10:21→23:38)
[2021-12-06] MEDS: Ferrous Sulfate 324 MG TABLET.DR PO (10:21)
[2021-12-06] MEDS: 0.9 % Sodium Chloride Flush 3 ML SYRINGE IVFLUSH ×3 (10:22→20:20)
--- NOTE | 2021-12-06 11:20 | HO.PM.IMPN ---
Subjective Subjective Date of Service: 12/07/21 Interval History: seen and examined this morning follow up for syncope, rhabdo, JOSE ALFREDO had 16 beat VTACH overnight, pt asymptomatic feels well this morning, was able to ambulating with walker to bathroom without dizziness no chest pain, SOB, abdominal pain Review of Systems Review of Systems: Yes all other systems are reviewed and are negative Constitutional Constitutional: Denies chills and Denies fever(s) ENT Ears, Nose, Mouth, and Throat: Denies dizziness Cardiovascular Cardiovascular: Denies chest pain, Denies palpitations and Denies dyspnea Respiratory Respiratory: Denies cough and Denies dyspnea Gastrointestinal Gastrointestinal: Denies abdominal pain, Denies nausea and Denies vomiting Neurologic Neurologic: Denies dizziness Endocrine Endocrine: Denies palpitations Physical Exam Vital Signs: Vital Signs: Last Vital Signs Temp 97.9 F 12/06/21 07:34 Pulse 73 12/06/21 07:34 Resp 18 12/06/21 07:34 BP 173/79 H 12/06/21 07:34 Pulse Ox 100 12/06/21 07:34 O2 Del Method 12/06/21 07:34 BMI result Body Mass Index 20.5 Appearing in no acute distress lung sounds are clear to auscultation heart regular rate rhythm, clear S1, S2 positive bowel sounds, abdomen is soft, nontender neuro patient is alert x3, no focal deficits Objective Data Active Medications Acetaminophen (Acetaminophen 325 Mg Tablet) 650 mg PO Q6H PRN PRN Reason: Pain, Mild (Pain Scale 1-3) Last Admin: 12/03/21 21:55 Dose: 650 mg Documented By: JAEL Acetaminophen/Codeine Phosphate (Acetaminophen With Codeine # 3 Tablet) 1 tab PO Q4H PRN PRN Reason: Pain, Mild (Pain Scale 1-3) Last Admin: 12/05/21 21:04 Dose: 1 tab Documented By: DILANRISHarika Albuterol/Ipratropium (Albuterol/Iprat 2.5/0.5mg 3 Ml Ampul.Neb) 3 ml INHALE RQ4H PRN PRN Reason: Shortness of Breath/Wheezing Albuterol/Ipratropium (Albuterol/Iprat 2.5/0.5mg 3 Ml Ampul.Neb) 3 ml INHALE RQ4H WHILE AWAKE [facility] Last Admin: 12/06/21 11:13 Dose: Not Given Documented By: MADDIE Non-Admin Reason: Patient Refused Ascorbic Acid (Ascorbic Acid 500 Mg Tablet) 500 mg PO DAILY [facility] Last Admin: 12/06/21 10:20 Dose: 500 mg Documented By: LEDA Aspirin (Aspirin 81 Mg Tab.Chew) 81 mg PO DAILY [facility] Last Admin: 12/06/21 10:20 Dose: 81 mg Documented By: LEDA Docusate Sodium (Docusate Sodium 100 Mg Capsule) 100 mg PO DAILY PRN PRN Reason: Constipation Docusate Sodium (Docusate Sodium 100 Mg/10 Ml Liquid) 50 mg PO BID [facility] Last Admin: 12/06/21 10:21 Dose: Not Given Documented By: LEDA Non-Admin Reason: loose stool Ferrous Sulfate (Ferrous Sulfate 324 Mg Tablet.Dr) 324 mg PO DAILY [facility] Last Admin: 12/06/21 10:21 Dose: 324 mg Documented By: LEDA Folic Acid (Folic Acid 1 Mg Tablet) 1 mg PO DAILY [facility] Last Admin: 12/06/21 10:20 Dose: 1 mg Documented By: LEDA Heparin Sodium (Porcine) (Heparin Sodium,Porcine 5,000 Unit/Ml Vial) 5,000 unit SUBCUT Q12H [facility] Last Admin: 12/06/21 10:21 Dose: 5,000 unit Documented By: LEDA Metoprolol Tartrate (Metoprolol Tartrate 12.5 Mg Halftab) 12.5 mg PO BID [facility]; Protocol Last Admin: 12/06/21 10:20 Dose: 12.5 mg Documented By: LEDA Ondansetron HCl (Ondansetron Hcl 4 Mg/2 Ml Vial) 4 mg IVPUSH Q8H PRN PRN Reason: Nausea and Vomiting Pharmacy Consult (Consult Rx Perform Med Rec) 1 each MISCELLANE ONCE PRN PRN Reason: Consult order Pharmacy Consult (Consult Rx Perform Med Rec) 1 each MISCELLANE ONCE PRN PRN Reason: Consult order Prednisone (Prednisone 20 Mg Tablet) 40 mg PO DAILY [facility] Last Admin: 12/06/21 10:20 Dose: 40 mg Documented By: LEDA Pyridoxine HCl (Pyridoxine Hcl (Vitamin B6) 50 Mg Tablet) 100 mg PO DAILY [facility] Last Admin: 12/06/21 10:20 Dose: 100 mg Documented By: LEDA Sodium Chloride (0.9 % Sodium Chloride Flush 3 Ml Syringe) 3 ml IVFLUSH QSHIFT [facility] Last Admin: 12/06/21 10:22 Dose: 3 ml Documented By: LEDA Vitamin D (Cholecalciferol (Vitamin D3) 25 Mcg Tablet) 25 mcg PO DAILY [facility] Last Admin: 12/06/21 10:20 Dose: 25 mcg Documented By: LEDA Labs CBC & Chem 7: 12/05/21 06:37 12/06/21 05:27 Labs: Laboratory Results - last 24 hr 12/06/21 05:27 Anion Gap 11 L Estim Creat Clear Calc 55.3 Estimated GFR > 60 Random Glucose 100 D Calcium 8.3 L Assessment and Plan (1) Syncope: Status: Acute (2) Rhabdomyolysis: Status: Acute (3) Fall: Status: Acute (4) NSVT (nonsustained ventricular tachycardia): Status: Acute Plan 76-year-old male with past medical history of COPD, CHF, CABG, who presents to the hospital with complaints of a syncopal episode NSVT One episode Received Magnesium and potassium 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 Resolved Likely secondary to IV fluid, fluids d/c Bicarb improving Follow BMP syncope likely secondary to orthostasis he has slightly elevated troponin with no delta, no chest pain, EKG shows no ST T-wave changes suggestive of ACS Seen by Cardiology, not likely cardiac event that led to syncope. No further workup indicated at this time orthostatic hypotension likely secondary to dehydration, decreased PO intake improved s/p IVF able to ambulate without dizziness -PT eval pending rhabdomyolysis. improving CPK trending down secondary to fall Acute COPD exacerbation. Resolved Transition to oral prednisone after treatment with Solu-Medrol Continue DuoNebs elevated troponin no chest pain likely in setting of rhabdo, stress from fall Seen by Cardiology, no further workup indicated 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 F[facility] at [facility] - continue outpatient follow up CAD s/p CABG Continue aspirin and beta-patricia. Statin on hold due to rhabdomyolysis Pancytopenia likely r/t underlying cancer/treatment H/H trending down but still within baseline, no evidence of acute bleeding Stool occult pending Follow CBC DVT prophylaxis Heparin subQ PT eval pending Attending-Dr. Perry Patient requires ongoing inpatient hospitalization for workup secondary to syncope, treatment of orthostatic hypotension and COPD exacerbation, tele monitoring for NSVT Quality Stroke Does the patient have a stroke diagnosis?: No VTE Prior VTE?: No VTE Risk Level:: Medical - moderate - high VTE Device Contraindication: Treatment Not Indicated VTE Drug Contraindication: N/A - Med Ordered
--- NOTE | 2021-12-06 15:04 | MHC.CM.PN ---
per rounds pt npt ready for dc ,pt needs a pt eval
[2021-12-07] VITALS (11 sets, daily range): BP systolic 118–163; BP diastolic 57–82; PULSE 75–122; RESP 16–20; TEMP 36.3–37.2; O2SAT 97–100
[2021-12-07] MEDS: Albuterol/Iprat 2.5/0.5MG 3 ML AMPUL.NEB INHALE ×4 (07:47→18:46)
[2021-12-07] MEDS: predniSONE 20 MG TABLET 40 MG PO (08:56)
[2021-12-07] MEDS: Metoprolol Tartrate 12.5 MG HALFTAB PO (08:56)
[2021-12-07] MEDS: Pyridoxine HCl (Vitamin B6) 50 MG TABLET 100 MG PO (08:56)
[2021-12-07] MEDS: Cholecalciferol (Vitamin D3) 25 MCG TABLET PO (08:57)
[2021-12-07] MEDS: Folic Acid 1 MG TABLET PO (08:57)
[2021-12-07] MEDS: Aspirin 81 MG TAB.CHEW PO (08:57)
[2021-12-07] MEDS: Ferrous Sulfate 324 MG TABLET.DR PO (08:58)
[2021-12-07] MEDS: 0.9 % Sodium Chloride Flush 3 ML SYRINGE IVFLUSH ×3 (09:02→21:16)
[2021-12-07] MEDS: Ascorbic Acid 500 MG TABLET PO (09:02)
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
[2021-12-07] MEDS: Heparin Sodium,Porcine 5,000 UNIT/ML VIAL 5000 UNIT SUBCUT ×2 (11:13→23:52)
--- NOTE | 2021-12-07 12:49 | MHC.CM.PN ---
[facility] she checked [facility] eligibility,pt is not administratvely eligible for rehab or ltc
--- NOTE | 2021-12-07 13:19 | P.CDIC_ITS ---
CDI Concurrent Query Documentation Clarification: PHYSICIAN'S DOCUMENTATION REQUEST Date of Query: 12/07/21 1319 Patient Name: Laron Burns Admit Date: 12/02/21 Dear Doctor, A review of the medical record indicates additional documentation may be needed. Please review below and update the documentation accordingly. Clinical Indicators: Risk Factors/Clinical Indicators/Treatments Per ED note, history CHF, chronic, not in fluid overload not on diuretic therapy BNP 916 Per Cardiology note 12/05/21: Echocardiogram with LVEF 68% Please provide further specificity regarding the most likely type and acuity of CHF you are evaluating, treating, or monitoring. Examples include: Type: * Systolic * Diastolic * Combined Systolic/Diastolic * Other ? please specify * Unable to determine Use of terms such as suspected, likely, concern for, or probable (associated with a specific diagnosis that is being evaluated, monitored, or treated as if it exists) are acceptable and can be coded in the inpatient setting, when documented at the time of discharge. Thank you, Nancy Joy RN Extension: [phone] Please use your independent medical judgment in providing your response. THIS QUERY IS PART OF THE PERMANENT MEDICAL RECORD Other Diagnosis: HFPEF
[2021-12-07] MEDS: Metoprolol Tartrate 25 MG TABLET PO (21:15)
[2021-12-08] VITALS (11 sets, daily range): BP systolic 116–160; BP diastolic 64–77; PULSE 73–100; RESP 16–20; TEMP 36.3–37.5; O2SAT 98–99
[2021-12-08] MEDS: Pyridoxine HCl (Vitamin B6) 50 MG TABLET 100 MG PO (07:22)
[2021-12-08] MEDS: Ascorbic Acid 500 MG TABLET PO (07:23)
[2021-12-08] MEDS: predniSONE 20 MG TABLET 40 MG PO (07:23)
[2021-12-08] MEDS: Metoprolol Tartrate 25 MG TABLET PO ×2 (07:23→19:57)
[2021-12-08] MEDS: Cholecalciferol (Vitamin D3) 25 MCG TABLET PO (07:23)
[2021-12-08] MEDS: Aspirin 81 MG TAB.CHEW PO (07:23)
[2021-12-08] MEDS: Ferrous Sulfate 324 MG TABLET.DR PO (07:23)
[2021-12-08] MEDS: Folic Acid 1 MG TABLET PO (07:24)
[2021-12-08] MEDS: 0.9 % Sodium Chloride Flush 3 ML SYRINGE IVFLUSH ×3 (07:24→19:57)
[2021-12-08] MEDS: Albuterol/Iprat 2.5/0.5MG 3 ML AMPUL.NEB INHALE ×4 (07:46→20:13)
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
[2021-12-08] MEDS: Heparin Sodium,Porcine 5,000 UNIT/ML VIAL 5000 UNIT SUBCUT ×2 (13:14→23:35)
--- NOTE | 2021-12-08 15:07 | MHC.CM.PN ---
This resume writer and Cece Morfin were asked to speak with family re: discharge plan as MD reports patient is medically cleared for discharge to return home with services. They voiced concerns that patient is not medically cleared for d/c as the patient has not had a syncopal episode while in the hospital. They disagree that the patient was cleared to return home by PT and a book is used by PT for protocoled evals that are not individualized. Patient's daughter also concerned that CM staff asked about pt's vaccine status. Explained that it is part of our intake assessment for all patients, and could potentially be need by a STR facility if required @ discharge. Daughter stated she received call from about father but then has not received any further calls after that. Explained to daughter that because the patient is A&Ox3 w/o an invoked HCP that the care team would talk with patient about care and discharge planning and only reach out to daughter if patient requested. The [facility] but does not have a SN[facility] benefit. He also has medicare. At this this PT is not recommending STR. Secure message sent to Dr. Mooney to speak with patient and family regarding concerns for medical clearance.
--- NOTE | 2021-12-08 15:30 | MHC.CM.PN ---
[place] requests pts medical imfo be sent to her pt,ot history and physical,a progress note ,all faxed she will attempt to get pt into a respite bed ,she can not promise but will try ,additionally this worker received a call from pts pcp dr ellington who disagrees with physical therapy and ot assesement and feels pt is not dc ready he will contact dr quiroz and have him re eval pt referrals made to snf rehabs ,dr huang aware of above
[2021-12-09] VITALS (11 sets, daily range): BP systolic 122–168; BP diastolic 60–84; PULSE 77–100; RESP 15–20; TEMP 36.4–36.7; O2SAT 95–100
--- NOTE | 2021-12-09 | ECG_ITS ---
Test Reason : vtach Blood Pressure : / mmHG Vent. Rate : 085 BPM Atrial Rate : 085 BPM P-R Int : 176 ms QRS Dur : 094 ms QT Int : 382 ms P-R-T Axes : 064 030 064 degrees QTc Int : 454 ms Sinus rhythm with sinus arrhythmia with occasional Premature ventricular complexes Otherwise normal ECG When compared with ECG of 02-DEC-2021 19:29, Premature ventricular complexes are now Present Minimal criteria for Anteroseptal infarct are no longer Present Heart rate has decreased Referred By: Ron Mooney Electronically Signed By:SHANKAR NAVA
[2021-12-09 07:08] LABS: Hemoglobin 7.1 g/dl (14.0-18.0); Mean Corpuscular HGB Conc 34.6 g/dl (31.0-36.0); Mean Corpuscular Hemoglobin 33.6 pg (27.0-33.0); Mean Corpuscular Volume 97.2 fL (80.0-98.0); Mean Platelet Volume 11.4 fL (9.4-12.4); NRBC Pct Auto 0.5 /100WBC (0.0-0.2); Platelet Count 180 X10*3/uL (160-400); Red Blood Count 2.11 X10*6/uL (4.60-5.80); White Blood Count 4.2 X10*3/uL (4.8-10.8)
[2021-12-09 07:20] LABS: Hematocrit 20.5 % (42.0-52.0)
[2021-12-09 07:21] LABS: Anion Gap 13 (12-20); Blood Urea Nitrogen 28 mg/dL (9-16); Calcium 8.5 mg/dL (8.4-10.2); Carbon Dioxide 24 mmol/L (22-29); Chloride 107 mmol/L (96-108); Creatinine Clr Calc Pharmacy 52.2; Estimated Glomerular Filt Rate > 60; Glucose Fasting 84 mg/dL (60-99); Potassium 3.9 mmol/L (3.3-5.1); Sodium 140 mmol/L (135-145)
[2021-12-09] MEDS: Albuterol/Iprat 2.5/0.5MG 3 ML AMPUL.NEB INHALE ×4 (07:27→19:54)
[2021-12-09 08:34] LABS: Folate 14.8 ng/mL (> or = 4.0); Vitamin B12 643 pg/mL (200-900)
[2021-12-09] MEDS: Ascorbic Acid 500 MG TABLET PO (08:41)
[2021-12-09] MEDS: Metoprolol Tartrate 25 MG TABLET PO ×2 (08:41→20:23)
[2021-12-09] MEDS: Pyridoxine HCl (Vitamin B6) 50 MG TABLET 100 MG PO (08:41)
[2021-12-09] MEDS: Cholecalciferol (Vitamin D3) 25 MCG TABLET PO (08:42)
[2021-12-09] MEDS: Aspirin 81 MG TAB.CHEW PO (08:42)
[2021-12-09] MEDS: Folic Acid 1 MG TABLET PO (08:42)
[2021-12-09] MEDS: 0.9 % Sodium Chloride Flush 3 ML SYRINGE IVFLUSH ×3 (08:42→20:23)
[2021-12-09] MEDS: Ferrous Sulfate 324 MG TABLET.DR PO (08:42)
[2021-12-09] MEDS: predniSONE 20 MG TABLET 40 MG PO (08:42)
[2021-12-09] MEDS: Heparin Sodium,Porcine 5,000 UNIT/ML VIAL 5000 UNIT SUBCUT ×2 (12:26→23:39)
--- NOTE | 2021-12-09 12:43 | P.PNIM_ITS ---
Subjective Subjective Date of Service: 12/09/21 Interval History: cc: weakness interval history:some improvement Cardiovascular Cardiovascular: Reports no additional cardiovascular complaints Gastrointestinal Gastrointestinal: Reports no additional gastrointestinal complaints Physical Exam Vital Signs: Vital Signs: Last Vital Signs Temp 98.0 F 12/09/21 12:37 Pulse 77 12/09/21 12:37 Resp 18 12/09/21 12:37 BP 155/70 H 12/09/21 12:37 Pulse Ox 98 12/09/21 11:38 O2 Del Method 12/09/21 11:38 BMI result Body Mass Index 20.5 General: AO X 3, no acute distress Resp: CTA bilateral, no accessory muscles used CVS: S1,S2,RRR GI: soft, non tender, non distended Neuro: motor grossly intact, alert Psych: appropriate affect, appropriate insight Objective Data Active Medications Acetaminophen (Acetaminophen 325 Mg Tablet) 650 mg PO Q6H PRN PRN Reason: Pain, Mild (Pain Scale 1-3) Last Admin: 12/03/21 21:55 Dose: 650 mg Documented By: JAEL Albuterol/Ipratropium (Albuterol/Iprat 2.5/0.5mg 3 Ml Ampul.Neb) 3 ml INHALE RQ4H PRN PRN Reason: Shortness of Breath/Wheezing Albuterol/Ipratropium (Albuterol/Iprat 2.5/0.5mg 3 Ml Ampul.Neb) 3 ml INHALE RQ4H WHILE AWAKE [facility] Last Admin: 12/09/21 11:23 Dose: 3 ml Documented By: MADDIE Ascorbic Acid (Ascorbic Acid 500 Mg Tablet) 500 mg PO DAILY [facility] Last Admin: 12/09/21 08:41 Dose: 500 mg Documented By: BOGDAN Aspirin (Aspirin 81 Mg Tab.Chew) 81 mg PO DAILY [facility] Last Admin: 12/09/21 08:42 Dose: 81 mg Documented By: BOGDAN Docusate Sodium (Docusate Sodium 100 Mg/10 Ml Liquid) 50 mg PO BID [facility] Last Admin: 12/09/21 08:43 Dose: Not Given Documented By: BOGDAN Non-Admin Reason: Patient Refused Ferrous Sulfate (Ferrous Sulfate 324 Mg Tablet.) 324 mg PO DAILY [facility] Last Admin: 12/09/21 08:42 Dose: 324 mg Documented By: BOGDAN Folic Acid (Folic Acid 1 Mg Tablet) 1 mg PO DAILY [facility] Last Admin: 12/09/21 08:42 Dose: 1 mg Documented By: BOGDAN Heparin Sodium (Porcine) (Heparin Sodium,Porcine 5,000 Unit/Ml Vial) 5,000 unit SUBCUT Q12H [facility] Last Admin: 12/09/21 12:26 Dose: 5,000 unit Documented By: BOGDAN Metoprolol Tartrate (Metoprolol Tartrate 25 Mg Tablet) 25 mg PO BID [facility]; Protocol Last Admin: 12/09/21 08:41 Dose: 25 mg Documented By: BOGDAN Ondansetron HCl (Ondansetron Hcl 4 Mg/2 Ml Vial) 4 mg IVPUSH Q8H PRN PRN Reason: Nausea and Vomiting Pharmacy Consult (Consult Rx Perform Med Rec) 1 each MISCELLANE ONCE PRN PRN Reason: Consult order Pharmacy Consult (Consult Rx Perform Med Rec) 1 each MISCELLANE ONCE PRN PRN Reason: Consult order Prednisone (Prednisone 20 Mg Tablet) 40 mg PO DAILY [facility] Last Admin: 12/09/21 08:42 Dose: 40 mg Documented By: BOGDAN Pyridoxine HCl (Pyridoxine Hcl (Vitamin B6) 50 Mg Tablet) 100 mg PO DAILY [facility] Last Admin: 12/09/21 08:41 Dose: 100 mg Documented By: BOGDAN Sodium Chloride (0.9 % Sodium Chloride Flush 3 Ml Syringe) 3 ml IVFLUSH QSHIFT [facility] Last Admin: 12/09/21 08:42 Dose: 3 ml Documented By: BOGDAN Vitamin D (Cholecalciferol (Vitamin D3) 25 Mcg Tablet) 25 mcg PO DAILY [facility] Last Admin: 12/09/21 08:42 Dose: 25 mcg Documented By: BOGDAN Labs CBC & Chem 7: 12/09/21 06:33 12/09/21 06:33 Labs: Laboratory Results - last 24 hr 12/09/21 12/09/21 12/09/21 06:33 06:33 06:33 MCV 97.2 MCH 33.6 H MCHC 34.6 RDW 17.0 H Plt Count 180 MPV 11.4 Absolute Nucleated RBC 0.020 H Nucleated RBC % (auto) 0.5 H Smear Path Review SEE NOTE Anion Gap 13 Estim Creat Clear Calc 52.2 Estimated GFR > 60 Fasting Glucose 84 Calcium 8.5 Vitamin B12 643 Folate 14.8 Blood Type Antibody Screen Crossmatch 12/09/21 08:29 MCV MCH MCHC RDW Plt Count MPV Absolute Nucleated RBC Nucleated RBC % (auto) Smear Path Review Anion Gap Estim Creat Clear Calc Estimated GFR Fasting Glucose Calcium Vitamin B12 Folate Blood Type O Positive Antibody Screen NEGATIVE Crossmatch See Detail Assessment and Plan (1) Syncope: Status: Acute (2) Rhabdomyolysis: Status: Acute (3) Fall: Status: Acute (4) NSVT (nonsustained ventricular tachycardia): Status: Acute Plan 76-year-old male with past medical history of COPD, CHF, CABG, who presents to the hospital with complaints of a syncopal episode NSVT. had another short asymptomatic episode today One episode Received Magnesium and potassium Continue metoprolol Monitor on director group sales electrolytes Hyperchloremic metabolic acidosis. Resolved Likely secondary to IV fluid, fluids d/c resolved syncope. No further episodes likely secondary to orthostasis he had slightly elevated troponin with no delta, no chest pain, EKG shows no ST T-wave changes suggestive of ACS Seen by Cardiology, not likely cardiac event that led to syncope. No further workup indicated at this time orthostatic hypotension. Resolved likely secondary to dehydration, decreased PO intake improved s/p IVF able to ambulate without dizziness PT rec home with PT rhabdomyolysis. Resolved CPK trending down secondary to fall Acute COPD exacerbation. 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 Farias at [facility] - continue outpatient follow up CAD s/p CABG Continue aspirin and beta-patricia. Statin on hold due to rhabdomyolysis Pancytopenia likely r/t underlying cancer/treatment will transfuse 1 unit prbc Follow CBC DVT prophylaxis Heparin subQ reason for continued hospitalization:weakness, anemia needing transfusion Quality Stroke Does the patient have a stroke diagnosis?: No VTE Prior VTE?: No VTE Risk Level:: Medical - moderate - high VTE Device Contraindication: Treatment Not Indicated VTE Drug Contraindication: N/A - Med Ordered
--- NOTE | 2021-12-09 14:33 | MHC.CM.PN ---
CM received a call from [facility] representative personal service/Yelena @ [phone]. Per that conversation, [facility], [facility], and/or [facility] may be able to offer a SNF RESPITE bed. Referrals were made to these facilities and CM will continue to follow. ZENA is being asked to update the ME tomorrow with dc plan (Abi @ [phone], EXT [phone] and/or Joaquín at Ext. [phone]. Administration is aware.
[2021-12-10] VITALS (9 sets, daily range): BP systolic 130–191; BP diastolic 60–91; PULSE 79–94; RESP 17–20; TEMP 36.3–37; O2SAT 96–99
[2021-12-10 06:13] LABS: Hematocrit 24.8 % (42.0-52.0); Hemoglobin 8.3 g/dl (14.0-18.0); Mean Corpuscular HGB Conc 33.5 g/dl (31.0-36.0); Mean Corpuscular Volume 95.8 fL (80.0-98.0); Mean Platelet Volume 11.2 fL (9.4-12.4); Platelet Count 184 X10*3/uL (160-400); Red Blood Count 2.59 X10*6/uL (4.60-5.80); Red Cell Distribution Width 17.2 % (11.0-16.0); White Blood Count 4.1 X10*3/uL (4.8-10.8)
[2021-12-10 06:54] LABS: Anion Gap 14 (12-20); Blood Urea Nitrogen 22 mg/dL (9-16); Calcium 8.4 mg/dL (8.4-10.2); Carbon Dioxide 24 mmol/L (22-29); Chloride 104 mmol/L (96-108); Creatinine Clr Calc Pharmacy 58.2; Estimated Glomerular Filt Rate > 60; Glucose Fasting 96 mg/dL (60-99); Potassium 3.4 mmol/L (3.3-5.1); Sodium 139 mmol/L (135-145)
[2021-12-10] MEDS: predniSONE 20 MG TABLET 40 MG PO (07:26)
[2021-12-10] MEDS: 0.9 % Sodium Chloride Flush 3 ML SYRINGE IVFLUSH ×3 (07:26→19:21)
[2021-12-10] MEDS: Pyridoxine HCl (Vitamin B6) 50 MG TABLET 100 MG PO (07:26)
[2021-12-10] MEDS: Folic Acid 1 MG TABLET PO (07:26)
[2021-12-10] MEDS: Cholecalciferol (Vitamin D3) 25 MCG TABLET PO (07:27)
[2021-12-10] MEDS: Ascorbic Acid 500 MG TABLET PO (07:27)
[2021-12-10] MEDS: Metoprolol Tartrate 25 MG TABLET PO ×2 (07:27→19:17)
[2021-12-10] MEDS: Aspirin 81 MG TAB.CHEW PO (07:27)
[2021-12-10] MEDS: Ferrous Sulfate 324 MG TABLET.DR PO (07:28)
--- NOTE | 2021-12-10 09:51 | MHC.CM.PN ---
ZENA returned a call to ROBB/Samson Celis @ [phone], Ext. [phone]; Samson requests that he be notified when Patient is medically cleared for dc. ZENA will continue to follow.
--- NOTE | 2021-12-10 15:44 | MHC.CM.PN ---
CM AND COLLEAGUE MET WITH PT WHILE HIS DAUGHTER/HCP WAS ON SPEAKER PHONE. THE BARRIERS TO REHAB WERE DISCUSSED AND THEY WERE REMINDED THE [facility] IS ONLY OFFERING A RESPITE BED AT THIS TIME AFTER SOME DISCUSSION, THEY BOTH AGREE THEY WANT RESPITE PLACEMENT THEY ARE AWARE IF PT REQUIRES HOME PT AFTER, THIS WILL NEED TO BE ARRANGED BY THE PCP OR SNF MESSAGE SENT TO [facility] INFORMING THEM THE PT WANTS TO ACCEPT THE RESPITE OFFER AWAITING RESPONSE TO DETERMINE IF THEY WILL HAVE A BED TODAY OR OVER THE WEEKEND
--- NOTE | 2021-12-10 15:53 | P.PNIM_ITS ---
Subjective Subjective Date of Service: 12/10/21 Interval History: cc: weakness interval history:some improvement Cardiovascular Cardiovascular: Reports no additional cardiovascular complaints Gastrointestinal Gastrointestinal: Reports no additional gastrointestinal complaints Physical Exam Vital Signs: Vital Signs: Last Vital Signs Temp 98.4 F 12/10/21 15:35 Pulse 88 12/10/21 15:35 Resp 17 12/10/21 15:35 BP 160/82 H 12/10/21 15:35 Pulse Ox 98 12/10/21 15:35 O2 Del Method 12/10/21 15:35 FiO2 97 12/10/21 11:24 BMI result Body Mass Index 20.5 General: AO X 3, no acute distress Resp: CTA bilateral, no accessory muscles used CVS: S1,S2,RRR GI: soft, non tender, non distended Neuro: motor grossly intact, alert Psych: appropriate affect, appropriate insight Objective Data Active Medications Acetaminophen (Acetaminophen 325 Mg Tablet) 650 mg PO Q6H PRN PRN Reason: Pain, Mild (Pain Scale 1-3) Last Admin: 12/03/21 21:55 Dose: 650 mg Documented By: JAEL Ascorbic Acid (Ascorbic Acid 500 Mg Tablet) 500 mg PO DAILY [facility] Last Admin: 12/10/21 07:27 Dose: 500 mg Documented By: BOGDAN Aspirin (Aspirin 81 Mg Tab.Chew) 81 mg PO DAILY [facility] Last Admin: 12/10/21 07:27 Dose: 81 mg Documented By: BOGDAN Docusate Sodium (Docusate Sodium 100 Mg/10 Ml Liquid) 50 mg PO BID [facility] Last Admin: 12/10/21 07:27 Dose: Not Given Documented By: BOGDAN Non-Admin Reason: Patient Refused Ferrous Sulfate (Ferrous Sulfate 324 Mg Cristine.) 324 mg PO DAILY [facility] Last Admin: 12/10/21 07:28 Dose: 324 mg Documented By: BOGDAN Folic Acid (Folic Acid 1 Mg Tablet) 1 mg PO DAILY [facility] Last Admin: 12/10/21 07:26 Dose: 1 mg Documented By: BOGDAN Heparin Sodium (Porcine) (Heparin Sodium,Porcine 5,000 Unit/Ml Vial) 5,000 unit SUBCUT Q12H [facility] Last Admin: 12/10/21 11:50 Dose: Not Given Documented By: BOGDAN Non-Admin Reason: Patient Refused Metoprolol Tartrate (Metoprolol Tartrate 25 Mg Tablet) 25 mg PO BID [facility]; Protocol Last Admin: 12/10/21 07:27 Dose: 25 mg Documented By: BOGDAN Ondansetron HCl (Ondansetron Hcl 4 Mg/2 Ml Vial) 4 mg IVPUSH Q8H PRN PRN Reason: Nausea and Vomiting Pharmacy Consult (Consult Rx Perform Med Rec) 1 each MISCELLANE ONCE PRN PRN Reason: Consult order Pharmacy Consult (Consult Rx Perform Med Rec) 1 each MISCELLANE ONCE PRN PRN Reason: Consult order Prednisone (Prednisone 20 Mg Tablet) 40 mg PO DAILY [facility] Last Admin: 12/10/21 07:26 Dose: 40 mg Documented By: BOGDAN Pyridoxine HCl (Pyridoxine Hcl (Vitamin B6) 50 Mg Tablet) 100 mg PO DAILY [facility] Last Admin: 12/10/21 07:26 Dose: 100 mg Documented By: BOGDAN Sodium Chloride (0.9 % Sodium Chloride Flush 3 Ml Syringe) 3 ml IVFLUSH QSHIFT [facility] Last Admin: 12/10/21 07:26 Dose: 3 ml Documented By: BOGDAN Vitamin D (Cholecalciferol (Vitamin D3) 25 Mcg Tablet) 25 mcg PO DAILY [facility] Last Admin: 12/10/21 07:27 Dose: 25 mcg Documented By: BOGDAN Labs CBC & Chem 7: 12/10/21 05:39 12/10/21 05:39 Labs: Laboratory Results - last 24 hr 12/10/21 12/10/21 05:39 05:39 MCV 95.8 MCH 32.0 MCHC 33.5 RDW 17.2 H Plt Count 184 MPV 11.2 Absolute Nucleated RBC 0.000 Nucleated RBC % (auto) 0.0 Anion Gap 14 Estim Creat Clear Calc 58.2 Estimated GFR > 60 Fasting Glucose 96 Calcium 8.4 Assessment and Plan (1) Syncope: Status: Acute (2) Rhabdomyolysis: Status: Acute (3) Fall: Status: Acute (4) NSVT (nonsustained ventricular tachycardia): Status: Acute Plan 76-year-old male with past medical history of COPD, CHF, CABG, who presents to the hospital with complaints of a syncopal episode NSVT. 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 Resolved Likely secondary to IV fluid, fluids d/c resolved syncope. No further episodes likely secondary to orthostasis he had slightly elevated troponin with no delta, no chest pain, EKG shows no ST T-wave changes suggestive of ACS Seen by Cardiology, not likely cardiac event that led to syncope. No further workup indicated at this time orthostatic hypotension. Resolved likely secondary to dehydration, decreased PO intake improved s/p IVF able to ambulate without dizziness PT rec home with PT rhabdomyolysis. Resolved CPK trending down secondary to fall Acute COPD exacerbation. 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 Farias at [facility] - continue outpatient follow up CAD s/p CABG Continue aspirin and beta-patricia. Statin on hold due to rhabdomyolysis Pancytopenia likely r/t underlying cancer/treatment transfused 1 unit prbc - improved DVT prophylaxis Heparin subQ reason for continued hospitalization:weakness, needs respite bed Quality Stroke Does the patient have a stroke diagnosis?: No VTE Prior VTE?: No VTE Risk Level:: Medical - moderate - high VTE Device Contraindication: Treatment Not Indicated VTE Drug Contraindication: N/A - Med Ordered
[2021-12-11 03:08] VITALS: BP 152/71; PULSE 77; RESP 20; TEMP 36.4; O2SAT 97
[2021-12-11 08:00] VITALS: BP 155/84; PULSE 76; RESP 18; TEMP 36.4; O2SAT 95
[2021-12-11] MEDS: Aspirin 81 MG TAB.CHEW PO (09:34)
[2021-12-11] MEDS: Pyridoxine HCl (Vitamin B6) 50 MG TABLET 100 MG PO (09:34)
[2021-12-11] MEDS: Folic Acid 1 MG TABLET PO (09:37)
[2021-12-11] MEDS: Cholecalciferol (Vitamin D3) 25 MCG TABLET PO (09:37)
[2021-12-11] MEDS: 0.9 % Sodium Chloride Flush 3 ML SYRINGE IVFLUSH ×3 (09:37→19:23)
[2021-12-11] MEDS: predniSONE 20 MG TABLET 40 MG PO (09:37)
[2021-12-11] MEDS: Ascorbic Acid 500 MG TABLET PO (09:37)
[2021-12-11] MEDS: Metoprolol Tartrate 25 MG TABLET PO ×2 (09:37→19:22)
[2021-12-11] MEDS: Ferrous Sulfate 324 MG TABLET.DR PO (09:41)
--- NOTE | 2021-12-11 11:15 | HO.PM.IMPN ---
Subjective Subjective Date of Service: 12/11/21 Interval History: cc: weakness interval history:some improvement Cardiovascular Cardiovascular: Reports no additional cardiovascular complaints Gastrointestinal Gastrointestinal: Reports no additional gastrointestinal complaints Physical Exam Vital Signs: Vital Signs: Last Vital Signs Temp 97.6 F 12/11/21 08:00 Pulse 76 12/11/21 08:00 Resp 18 12/11/21 08:00 BP 155/84 H 12/11/21 08:00 Pulse Ox 95 12/11/21 08:00 O2 Del Method 12/11/21 08:00 FiO2 97 12/10/21 11:24 BMI result Body Mass Index 20.5 General: AO X 3, no acute distress Resp: CTA bilateral, no accessory muscles used CVS: S1,S2,RRR GI: soft, non tender, non distended Neuro: motor grossly intact, alert Psych: appropriate affect, appropriate insight Objective Data Active Medications Acetaminophen (Acetaminophen 325 Mg Tablet) 650 mg PO Q6H PRN PRN Reason: Pain, Mild (Pain Scale 1-3) Last Admin: 12/03/21 21:55 Dose: 650 mg Documented By: JAEL Ascorbic Acid (Ascorbic Acid 500 Mg Tablet) 500 mg PO DAILY [facility] Last Admin: 12/11/21 09:37 Dose: 500 mg Documented By: MARÍA Aspirin (Aspirin 81 Mg Tab.Chew) 81 mg PO DAILY [facility] Last Admin: 12/11/21 09:34 Dose: 81 mg Documented By: MARÍA Docusate Sodium (Docusate Sodium 100 Mg/10 Ml Liquid) 50 mg PO BID [facility] Last Admin: 12/11/21 09:40 Dose: Not Given Documented By: MARÍA Non-Admin Reason: Patient Refused Ferrous Sulfate (Ferrous Sulfate 324 Mg Tablet.) 324 mg PO DAILY [facility] Last Admin: 12/11/21 09:41 Dose: 324 mg Documented By: MARÍA Folic Acid (Folic Acid 1 Mg Tablet) 1 mg PO DAILY [facility] Last Admin: 12/11/21 09:37 Dose: 1 mg Documented By: MARÍA Heparin Sodium (Porcine) (Heparin Sodium,Porcine 5,000 Unit/Ml Vial) 5,000 unit SUBCUT Q12H [facility] Last Admin: 12/11/21 00:11 Dose: Not Given Documented By: JESSICA Non-Admin Reason: Patient Refused Metoprolol Tartrate (Metoprolol Tartrate 25 Mg Tablet) 25 mg PO BID [facility]; Protocol Last Admin: 12/11/21 09:37 Dose: 25 mg Documented By: MARÍA Ondansetron HCl (Ondansetron Hcl 4 Mg/2 Ml Vial) 4 mg IVPUSH Q8H PRN PRN Reason: Nausea and Vomiting Pharmacy Consult (Consult Rx Perform Med Rec) 1 each MISCELLANE ONCE PRN PRN Reason: Consult order Pharmacy Consult (Consult Rx Perform Med Rec) 1 each MISCELLANE ONCE PRN PRN Reason: Consult order Prednisone (Prednisone 20 Mg Tablet) 40 mg PO DAILY [facility] Last Admin: 12/11/21 09:37 Dose: 40 mg Documented By: MARÍA Pyridoxine HCl (Pyridoxine Hcl (Vitamin B6) 50 Mg Tablet) 100 mg PO DAILY [facility] Last Admin: 12/11/21 09:34 Dose: 100 mg Documented By: MARÍA Sodium Chloride (0.9 % Sodium Chloride Flush 3 Ml Syringe) 3 ml IVFLUSH QSHIFT [facility] Last Admin: 12/11/21 09:37 Dose: 3 ml Documented By: MARÍA Vitamin D (Cholecalciferol (Vitamin D3) 25 Mcg Tablet) 25 mcg PO DAILY [facility] Last Admin: 12/11/21 09:37 Dose: 25 mcg Documented By: MARÍA Labs CBC & Chem 7: 12/10/21 05:39 12/10/21 05:39 Assessment and Plan (1) Syncope: Status: Acute (2) Rhabdomyolysis: Status: Acute (3) Fall: Status: Acute (4) NSVT (nonsustained ventricular tachycardia): Status: Acute Plan 76-year-old male with past medical history of COPD, CHF, CABG, who presents to the hospital with complaints of a syncopal episode NSVT. had another short asymptomatic episode yesterday Received Magnesium and potassium Continue metoprolol Monitor on egg sorter electrolytes Hyperchloremic metabolic acidosis. Resolved Likely secondary to IV fluid, fluids d/c resolved syncope. No further episodes likely secondary to orthostasis he had slightly elevated troponin with no delta, no chest pain, EKG shows no ST T-wave changes suggestive of ACS Seen by Cardiology, not likely cardiac event that led to syncope. No further workup indicated at this time orthostatic hypotension. Resolved likely secondary to dehydration, decreased PO intake improved s/p IVF able to ambulate without dizziness PT rec home with PT rhabdomyolysis. Resolved CPK trending down secondary to fall Acute COPD exacerbation. 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 Farias at [facility] - continue outpatient follow up CAD s/p CABG Continue aspirin and beta-patricia. Statin on hold due to rhabdomyolysis Pancytopenia likely r/t underlying cancer/treatment transfused 1 unit prbc - improved DVT prophylaxis Heparin subQ reason for continued hospitalization:weakness, needs respite bed Quality Stroke Does the patient have a stroke diagnosis?: No VTE Prior VTE?: No VTE Risk Level:: Medical - moderate - high VTE Device Contraindication: Treatment Not Indicated VTE Drug Contraindication: N/A - Med Ordered
[2021-12-11 11:27] VITALS: BP 124/67; PULSE 87; RESP 18; TEMP 36.5; O2SAT 97
[2021-12-11 15:40] VITALS: BP 120/67; PULSE 85; RESP 20; TEMP 36.8; O2SAT 97
[2021-12-11 19:02] VITALS: BP 140/73; PULSE 83; RESP 20; TEMP 36.2; O2SAT 97
[2021-12-11 23:35] VITALS: BP 144/79; PULSE 89; RESP 20; TEMP 36.2; O2SAT 99
[2021-12-12 04:00] VITALS: BP 167/91; PULSE 76; RESP 20; TEMP 36.9; O2SAT 97
[2021-12-12 08:00] VITALS: BP 164/74; PULSE 73; RESP 18; TEMP 36.4; O2SAT 98
[2021-12-12] MEDS: predniSONE 20 MG TABLET 40 MG PO (08:59)
[2021-12-12] MEDS: Pyridoxine HCl (Vitamin B6) 50 MG TABLET 100 MG PO (08:59)
[2021-12-12] MEDS: Cholecalciferol (Vitamin D3) 25 MCG TABLET PO (08:59)
[2021-12-12] MEDS: Aspirin 81 MG TAB.CHEW PO (09:00)
[2021-12-12] MEDS: Metoprolol Tartrate 25 MG TABLET PO ×2 (09:00→20:25)
[2021-12-12] MEDS: Ascorbic Acid 500 MG TABLET PO (09:00)
[2021-12-12] MEDS: Folic Acid 1 MG TABLET PO (09:00)
[2021-12-12] MEDS: Ferrous Sulfate 324 MG TABLET.DR PO (09:00)
[2021-12-12] MEDS: 0.9 % Sodium Chloride Flush 3 ML SYRINGE IVFLUSH ×2 (09:05→20:26)
--- NOTE | 2021-12-12 10:01 | PM.DS ---
DS: Providers Provider Date of Service: 12/12/21 Date of admission: 12/02/21 23:52 Primary care physician: JIMMY Weeks Consults: 12/03/21 10:35 Consult to Cardiology Routine Consulting Provider: Ramon Pérez Reason for consultation: syncope Has provider been notified: No DS: Diagnosis Discharge Diagnosis (1) Syncope: Status: Acute (2) Rhabdomyolysis: Status: Acute (3) Fall: Status: Acute (4) NSVT (nonsustained ventricular tachycardia): Status: Acute DS: Summary Hospital Course Hospital Course: from initial hpi: Chief Complaint: syncope ?76-year-old male with past medical history of lung cancer status post lobectomy, currently on chemoradiation per patient, history of CABG, anemia, history of right carotid enterectomy HTN, who presents the hospital after his neighbor found him on the floor.? Patient's family were concerned about him, therefore had not heard from him for 2 days, they had called the neighbor and the neighbor did a well check on him and found him on the floor.? According to the patient he syncopized, fell to the floor without his trauma, and was not able to get up.? Patient reports that he was on the floor for close to 24 hours.? He reports that he was feeling dizzy but had no palpitations or chest pain prior to passing out, he reports that he was told not to eat or drink when I asked him to explain who told him that he states you guys ,? he denies any chest pain,? but reports dyspnea worse with exertion, he also complaining of cough and sputum production, denies any fever or chills, no abdominal pain nausea or vomiting, no diarrhea constipation, no urinary symptoms.? No lower extremity edema ?on arrival to the ED patient hemodynamically stable with a heart rate in the 110s ?labs are significant for WBC count of 2.3, hemoglobin of 8.8, hematocrit 25.7, BUN of 28, creatinine of 1.27 which is close to his baseline, C PK of 2593, troponin of 63.2 then increase to 78.3,? BNP of 916, UA negative ?patient on it went multiple imaging including chest CT angiogram, that showed limited assessment for detecting smaller segmental pulmonary emboli, no central or large segmental pulmonary embolus identified,? no airspace? consolidation effusion or pneumothorax ?no acute intra-abdominal process, ?patient underwent orthostatic vitals which were grossly positive ?patient started on IV fluids and will be admitted for further management hospital course: patient was admitted for syncope, likely due to orthostatic hypotension from dehydration and poor p.o. intake due to lung cancer with recent chemotherapy complicated by pancytopenia. Patient was given IV hydration which was then complicated by hyperchloremic metabolic acidosis which resolved after discontinuing IV fluids. His ortho status improved and he was able to ambulate well independently with physical therapy. Patient did have mild rhabdomyolysis on admission and resolved with IV hydration. Course was complicated by nonsustained V-tach. He was seen by Cardiology who recommended restarting low-dose metoprolol tartrate 25 mg b.i.d., his home dose of Toprol 100 mg had been held for hypotension. his hypo magnesemia and hypokalemia were corrected. Course was also complicated by COPD with acute decompensation. It improved with steroids and bronchodilators. He was also noted to have elevated troponin without chest pain, this was felt to be due to rhabdomyolysis and Cardiology recommended no further workup. For patient's history of coronary disease status post CABG is continue on aspirin and beta-patricia, he will resume statin on discharge. For patient's pancytopenia due to recent chemotherapy he was transfuse 1 unit of PRBC and hemoglobin improved appropriately. Patient is feeling better will be discharged to respite bed. Time Spent with Patient Time attestation: Total time spent providing and/or coordinating discharge services: Discharge coordination time: Greater than 30 minutes Quality: Safe Use of Opioids Does Pt have an Active Cancer Diagnosis on the Problem List?: Yes Opioid Measure Date for [facility] Report: 11/12/21 Opioid Measure Time for [facility] Report: 10:01 Quality: Stroke Does the patient have a stroke diagnosis?: No Physical Exam Vital Signs: Vital Signs: Last Vital Signs Temp 97.5 F 12/12/21 08:00 Pulse 73 12/12/21 08:00 Resp 18 12/12/21 08:00 BP 164/74 H 12/12/21 08:00 Pulse Ox 98 12/12/21 08:00 O2 Del Method 12/12/21 08:00 FiO2 97 12/10/21 11:24 BMI result Body Mass Index 20.5 General: AO X 3, no acute distress Resp: CTA bilateral, no accessory muscles used CVS: S1,S2,RRR GI: soft, non tender, non distended Neuro: motor grossly intact, alert Psych: appropriate affect, appropriate insight DS: Data Data Completed and Pending Completed studies during hospitalization [Text1]: Procedures Dilation of Bilateral Ureters with Intraluminal Device, Via Natural or Artificial Opening Endoscopic (09/27/20) Extirpation of Matter from Left Ureter, Via Natural or Artificial Opening Endoscopic (09/27/20) Fluoroscopy of Left Kidney, Ureter and Bladder (09/27/20) Discharge Plan Discharge Patient Disposition: Xfer [facility] Discharge Diagnosis: syncope Referrals: Arnulfo Angeles PA [Primary Care Provider] - 1 Week Discharge Medications: New metoprolol tartrate 25 mg Tablet 25 mg PO BID Qty: 60 0RF Protocol: Hold for SBP/HR < HOLD for SBP < : 90 HOLD for HR < : 60 Continued allopurinol 100 mg tablet 100 mg PO DAILY 90 Days Qty: 90 1RF pyridoxine (vitamin B6) 100 mg tablet 100 mg PO DAILY 90 Days Qty: 90 0RF atorvastatin 80 mg tablet 80 mg PO BEDTIME 90 Days Qty: 90 3RF aspirin 81 mg Tablet,Chewable 81 mg PO DAILY albuterol sulfate 90 mcg/actuation HFA aerosol inhaler 2 puff inhalation Q4-6H PRN (Reason: wheezing) docusate sodium 50 mg Capsule 50 mg PO BID clobetasol 0.05 % Ointment 1 appl TOPICAL BID PRN (Reason: RASH ON ARMS AND LEGS) folic acid 1 mg tablet 1 mg PO DAILY ascorbate calcium (vitamin C) 500 mg tablet 500 mg PO DAILY ferrous sulfate 324 mg (65 mg iron) tablet,delayed release (DR/EC) 324 mg PO DAILY cholecalciferol (vitamin D3) 25 mcg (1,000 unit) capsule 25 mcg PO DAILY Discontinued metoprolol succinate 100 mg tablet extended release 24 hr 100 mg PO DAILY Qty: 90 3RF amlodipine 5 mg tablet 5 mg PO DAILY Qty: 90 1RF Discharge Orders: Discharge Order (Routine); Ordered 12/12/21 Ordered By: Ron Mooney Diet: Advance to usual diet Activity on Discharge: As tolerated Stand Alone Forms: Patient Portal Discharge page Care Plan Goals: recovery Health Concerns: lung cancer, weakness Plan of Treatment: changed toprol to lopressor, follow up with oncology Assessment: see above
--- NOTE | 2021-12-12 10:59 | MHC.CM.PN ---
pt to be dcd today to oc at 3:30 amb booked
--- NOTE | 2021-12-12 11:04 | MHC.CM.PN ---
pt to be dcd to oc at 4:00 va setting up amb
--- NOTE | 2021-12-12 11:16 | MHC.CM.PN ---
pt to be dcd today to [facility]/respite dgter notified of dc imm left bedside ,[facility] providing transportaion
[2021-12-12 11:55] LABS: COVID-19 Test Positive (Negative); IDNOW Serial# 16C4AD1C
--- NOTE | 2021-12-12 12:53 | HO.PM.IMPN ---
Subjective Subjective Date of Service: 12/12/21 Interval History: cc: weakness interval history:some improvement Cardiovascular Cardiovascular: Reports no additional cardiovascular complaints Gastrointestinal Gastrointestinal: Reports no additional gastrointestinal complaints Physical Exam Vital Signs: Vital Signs: Last Vital Signs Temp 97.5 F 12/12/21 08:00 Pulse 73 12/12/21 08:00 Resp 18 12/12/21 08:00 BP 164/74 H 12/12/21 08:00 Pulse Ox 98 12/12/21 08:00 O2 Del Method 12/12/21 08:00 FiO2 97 12/10/21 11:24 BMI result Body Mass Index 20.5 General: AO X 3, no acute distress Resp: CTA bilateral, no accessory muscles used CVS: S1,S2,RRR GI: soft, non tender, non distended Neuro: motor grossly intact, alert Psych: appropriate affect, appropriate insight Objective Data Active Medications Acetaminophen (Acetaminophen 325 Mg Tablet) 650 mg PO Q6H PRN PRN Reason: Pain, Mild (Pain Scale 1-3) Last Admin: 12/03/21 21:55 Dose: 650 mg Documented By: JAEL Ascorbic Acid (Ascorbic Acid 500 Mg Tablet) 500 mg PO DAILY [facility] Last Admin: 12/12/21 09:00 Dose: 500 mg Documented By: MARÍA Aspirin (Aspirin 81 Mg Tab.Chew) 81 mg PO DAILY [facility] Last Admin: 12/12/21 09:00 Dose: 81 mg Documented By: MARÍA Docusate Sodium (Docusate Sodium 100 Mg/10 Ml Liquid) 50 mg PO BID [facility] Last Admin: 12/12/21 08:59 Dose: Not Given Documented By: MARÍA Non-Admin Reason: Patient Refused Ferrous Sulfate (Ferrous Sulfate 324 Mg Tablet.) 324 mg PO DAILY [facility] Last Admin: 12/12/21 09:00 Dose: 324 mg Documented By: MARÍA Folic Acid (Folic Acid 1 Mg Tablet) 1 mg PO DAILY [facility] Last Admin: 12/12/21 09:00 Dose: 1 mg Documented By: MARÍA Heparin Sodium (Porcine) (Heparin Sodium,Porcine 5,000 Unit/Ml Vial) 5,000 unit SUBCUT Q12H [facility] Last Admin: 12/11/21 19:23 Dose: Not Given Documented By: JESSICA Non-Admin Reason: Patient Refused Metoprolol Tartrate (Metoprolol Tartrate 25 Mg Tablet) 25 mg PO BID [facility]; Protocol Last Admin: 12/12/21 09:00 Dose: 25 mg Documented By: MARÍA Ondansetron HCl (Ondansetron Hcl 4 Mg/2 Ml Vial) 4 mg IVPUSH Q8H PRN PRN Reason: Nausea and Vomiting Pharmacy Consult (Consult Rx Perform Med Rec) 1 each MISCELLANE ONCE PRN PRN Reason: Consult order Pharmacy Consult (Consult Rx Perform Med Rec) 1 each MISCELLANE ONCE PRN PRN Reason: Consult order Prednisone (Prednisone 20 Mg Tablet) 40 mg PO DAILY [facility] Last Admin: 12/12/21 08:59 Dose: 40 mg Documented By: MARÍA Pyridoxine HCl (Pyridoxine Hcl (Vitamin B6) 50 Mg Tablet) 100 mg PO DAILY [facility] Last Admin: 12/12/21 08:59 Dose: 100 mg Documented By: MARÍA Sodium Chloride (0.9 % Sodium Chloride Flush 3 Ml Syringe) 3 ml IVFLUSH QSHIFT [facility] Last Admin: 12/12/21 09:05 Dose: 3 ml Documented By: MARÍA Vitamin D (Cholecalciferol (Vitamin D3) 25 Mcg Tablet) 25 mcg PO DAILY [facility] Last Admin: 12/12/21 08:59 Dose: 25 mcg Documented By: MARÍA Labs CBC & Chem 7: 12/10/21 05:39 12/10/21 05:39 Labs: Laboratory Results - last 24 hr 12/12/21 11:30 COVID-19 (TANISHA) Positive A COVID-19 Clin Com See Note Assessment and Plan (1) Syncope: Status: Acute (2) Rhabdomyolysis: Status: Acute (3) Fall: Status: Acute (4) NSVT (nonsustained ventricular tachycardia): Status: Acute Plan 76-year-old male with past medical history of COPD, CHF, CABG, who presents to the hospital with complaints of a syncopal episode, now on covid positive on placement screen asymptomatic covid has had 3 vaccines, 1st episode high risk due to frailty, lung cancer, PVD will give 3 day remdisivir NSVT. had another short asymptomatic episode yesterday Received Magnesium and potassium Continue metoprolol Monitor on telecommunications clerk electrolytes Hyperchloremic metabolic acidosis. Resolved Likely secondary to IV fluid, fluids d/c resolved syncope. No further episodes likely secondary to orthostasis he had slightly elevated troponin with no delta, no chest pain, EKG shows no ST T-wave changes suggestive of ACS Seen by Cardiology, not likely cardiac event that led to syncope. No further workup indicated at this time orthostatic hypotension. Resolved likely secondary to dehydration, decreased PO intake improved s/p IVF able to ambulate without dizziness PT rec home with PT rhabdomyolysis. Resolved CPK trending down secondary to fall Acute COPD exacerbation. 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 Farias at [facility] - continue outpatient follow up CAD s/p CABG Continue aspirin and beta-patricia. Statin on hold due to rhabdomyolysis Pancytopenia likely r/t underlying cancer/treatment transfused 1 unit prbc - improved DVT prophylaxis Heparin subQ reason for continued hospitalization:weakness, needs respite bed, unavailable due to covid + Quality Stroke Does the patient have a stroke diagnosis?: No VTE Prior VTE?: No VTE Risk Level:: Medical - moderate - high VTE Device Contraindication: Treatment Not Indicated VTE Drug Contraindication: N/A - Med Ordered
--- NOTE | 2021-12-12 15:28 | MHC.CM.PN ---
pts was set to be dcd today at 4 dc cancelled pt tested positive covid..[facility] transport cancelled, [facility] will reeval pt fri for symptons etc tonie wants to know if pts being billed under [employer] part a i will send email to arturo estrada and ask HER to contact [facility] with this accurate imfo
[2021-12-12] MEDS: Remdesivir 200 MG in 0.9 % Sodium Chloride 210 ML 105 MG IV (15:56)
[2021-12-12 16:00] VITALS: BP 131/64; PULSE 78; RESP 17; TEMP 36.4; O2SAT 99
[2021-12-12 19:35] VITALS: BP 142/70; PULSE 84; RESP 18; TEMP 36.3; O2SAT 98
[2021-12-13 04:00] VITALS: BP 125/76; PULSE 76; RESP 20; TEMP 36.3; O2SAT 99
[2021-12-13 07:23] LABS: Hematocrit 27.7 % (42.0-52.0); Hemoglobin 9.2 g/dl (14.0-18.0); Mean Corpuscular HGB Conc 33.2 g/dl (31.0-36.0); Mean Corpuscular Hemoglobin 33.1 pg (27.0-33.0); Mean Corpuscular Volume 99.6 fL (80.0-98.0); Platelet Count 179 X10*3/uL (160-400); Red Blood Count 2.78 X10*6/uL (4.60-5.80); Red Cell Distribution Width 17.5 % (11.0-16.0); White Blood Count 6.4 X10*3/uL (4.8-10.8)
[2021-12-13 07:48] LABS: Anion Gap 13 (12-20); Blood Urea Nitrogen 35 mg/dL (9-16); Carbon Dioxide 28 mmol/L (22-29); Chloride 103 mmol/L (96-108); Creatinine Clr Calc Pharmacy 48.6; Estimated Glomerular Filt Rate > 60; Glucose Fasting 84 mg/dL (60-99); Potassium 4.1 mmol/L (3.3-5.1); Sodium 140 mmol/L (135-145)
[2021-12-13 08:00] VITALS: BP 185/91; PULSE 68; RESP 20; TEMP 36.4; O2SAT 98
[2021-12-13] MEDS: Aspirin 81 MG TAB.CHEW PO (09:48)
[2021-12-13] MEDS: Folic Acid 1 MG TABLET PO (09:48)
[2021-12-13] MEDS: Pyridoxine HCl (Vitamin B6) 50 MG TABLET 100 MG PO (09:49)
[2021-12-13] MEDS: predniSONE 20 MG TABLET 40 MG PO (09:49)
[2021-12-13] MEDS: Metoprolol Tartrate 25 MG TABLET PO ×2 (09:49→21:00)
[2021-12-13] MEDS: Ascorbic Acid 500 MG TABLET PO (09:49)
[2021-12-13] MEDS: Ferrous Sulfate 324 MG TABLET.DR PO (09:49)
[2021-12-13] MEDS: Cholecalciferol (Vitamin D3) 25 MCG TABLET PO (09:50)
[2021-12-13] MEDS: 0.9 % Sodium Chloride Flush 3 ML SYRINGE IVFLUSH ×3 (09:50→21:01)
--- NOTE | 2021-12-13 10:29 | HO.PM.IMPN ---
Subjective Subjective Date of Service: 12/13/21 Interval History: cc: weakness interval history:feeling well Cardiovascular Cardiovascular: Reports no additional cardiovascular complaints Gastrointestinal Gastrointestinal: Reports no additional gastrointestinal complaints Physical Exam Vital Signs: Vital Signs: Last Vital Signs Temp 97.5 F 12/13/21 08:00 Pulse 68 12/13/21 08:00 Resp 20 12/13/21 08:00 BP 185/91 H 12/13/21 08:00 Pulse Ox 98 12/13/21 08:00 O2 Del Method 12/13/21 08:00 FiO2 97 12/10/21 11:24 BMI result Body Mass Index 20.5 General: AO X 3, no acute distress Resp: CTA bilateral, no accessory muscles used CVS: S1,S2,RRR GI: soft, non tender, non distended Neuro: motor grossly intact, alert Psych: appropriate affect, appropriate insight Objective Data Active Medications Acetaminophen (Acetaminophen 325 Mg Tablet) 650 mg PO Q6H PRN PRN Reason: Pain, Mild (Pain Scale 1-3) Last Admin: 12/03/21 21:55 Dose: 650 mg Documented By: JAEL Ascorbic Acid (Ascorbic Acid 500 Mg Tablet) 500 mg PO DAILY [facility] Last Admin: 12/13/21 09:49 Dose: 500 mg Documented By: ANNA Aspirin (Aspirin 81 Mg Tab.Chew) 81 mg PO DAILY [facility] Last Admin: 12/13/21 09:48 Dose: 81 mg Documented By: ANNA Docusate Sodium (Docusate Sodium 100 Mg/10 Ml Liquid) 50 mg PO BID [facility] Last Admin: 12/13/21 09:50 Dose: Not Given Documented By: ANNA Non-Admin Reason: Patient Refused Ferrous Sulfate (Ferrous Sulfate 324 Mg Tablet.) 324 mg PO DAILY [facility] Last Admin: 12/13/21 09:49 Dose: 324 mg Documented By: ANNA Folic Acid (Folic Acid 1 Mg Tablet) 1 mg PO DAILY [facility] Last Admin: 12/13/21 09:48 Dose: 1 mg Documented By: ANNA Heparin Sodium (Porcine) (Heparin Sodium,Porcine 5,000 Unit/Ml Vial) 5,000 unit SUBCUT Q12H [facility] Last Admin: 12/12/21 20:26 Dose: Not Given Documented By: NIKI Non-Admin Reason: Patient Refused Remdesivir 100 mg/ Sodium (Chloride) 230 mls @ 115 mls/hr IV Q24H [facility] Stop: 12/14/21 15:59 Metoprolol Tartrate (Metoprolol Tartrate 25 Mg Tablet) 25 mg PO BID [facility]; Protocol Last Admin: 12/13/21 09:49 Dose: 25 mg Documented By: ANNA Ondansetron HCl (Ondansetron Hcl 4 Mg/2 Ml Vial) 4 mg IVPUSH Q8H PRN PRN Reason: Nausea and Vomiting Pharmacy Consult (Consult Rx Perform Med Rec) 1 each MISCELLANE ONCE PRN PRN Reason: Consult order Pharmacy Consult (Consult Rx Perform Med Rec) 1 each MISCELLANE ONCE PRN PRN Reason: Consult order Prednisone (Prednisone 20 Mg Tablet) 40 mg PO DAILY [facility] Last Admin: 12/13/21 09:49 Dose: 40 mg Documented By: ANNA Pyridoxine HCl (Pyridoxine Hcl (Vitamin B6) 50 Mg Tablet) 100 mg PO DAILY [facility] Last Admin: 12/13/21 09:49 Dose: 100 mg Documented By: ANNA Sodium Chloride (0.9 % Sodium Chloride Flush 3 Ml Syringe) 3 ml IVFLUSH QSHIFT [facility] Last Admin: 12/13/21 09:50 Dose: 3 ml Documented By: ANNA Vitamin D (Cholecalciferol (Vitamin D3) 25 Mcg Tablet) 25 mcg PO DAILY [facility] Last Admin: 12/13/21 09:50 Dose: 25 mcg Documented By: ANNA Labs CBC & Chem 7: 12/13/21 07:14 12/13/21 07:14 Labs: Laboratory Results - last 24 hr 12/12/21 12/13/21 12/13/21 11:30 07:14 07:14 MCV 99.6 H MCH 33.1 H MCHC 33.2 RDW 17.5 H Plt Count 179 MPV 11.0 Absolute Nucleated RBC 0.000 Nucleated RBC % (auto) 0.0 Anion Gap 13 Estim Creat Clear Calc 48.6 Estimated GFR > 60 Fasting Glucose 84 Calcium 9.0 D COVID-19 (TANISHA) Positive A COVID-19 Clin Com See Note Assessment and Plan (1) Syncope: Status: Acute (2) Rhabdomyolysis: Status: Acute (3) Fall: Status: Acute (4) NSVT (nonsustained ventricular tachycardia): Status: Acute Plan 76-year-old male with past medical history of COPD, CHF, CABG, who presents to the hospital with complaints of a syncopal episode, now on covid positive on placement screen asymptomatic covid has had 3 vaccines, 1st episode high risk due to frailty, lung cancer, PVD will give 3 day remdisivir - day 2 NSVT. had another short asymptomatic episode yesterday Received Magnesium and potassium Continue metoprolol Monitor on finance consultant electrolytes Hyperchloremic metabolic acidosis. Resolved Likely secondary to IV fluid, fluids d/c resolved syncope. No further episodes likely secondary to orthostasis he had slightly elevated troponin with no delta, no chest pain, EKG shows no ST T-wave changes suggestive of ACS Seen by Cardiology, not likely cardiac event that led to syncope. No further workup indicated at this time orthostatic hypotension. Resolved likely secondary to dehydration, decreased PO intake improved s/p IVF able to ambulate without dizziness PT rec home with PT rhabdomyolysis. Resolved CPK trending down secondary to fall Acute COPD exacerbation. 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 Farias at [facility] - continue outpatient follow up CAD s/p CABG Continue aspirin and beta-patricia. Statin on hold due to rhabdomyolysis Pancytopenia likely r/t underlying cancer/treatment transfused 1 unit prbc - improved DVT prophylaxis Heparin subQ reason for continued hospitalization:weakness, needs respite bed, unavailable due to covid + Quality Stroke Does the patient have a stroke diagnosis?: No VTE Prior VTE?: No VTE Risk Level:: Medical - moderate - high VTE Device Contraindication: Treatment Not Indicated VTE Drug Contraindication: N/A - Med Ordered
[2021-12-13 11:16] VITALS: BP 126/60; PULSE 83; RESP 20; TEMP 36.3; O2SAT 97
[2021-12-13] MEDS: Remdesivir 100 MG in 0.9 % Sodium Chloride 230 ML 115 MG IV (14:04)
[2021-12-13 15:11] VITALS: BP 128/88; PULSE 76; RESP 18; TEMP 36.5; O2SAT 99
[2021-12-13 19:15] VITALS: BP 116/64; PULSE 86; RESP 18; TEMP 37.1; O2SAT 98
[2021-12-13 23:21] VITALS: BP 154/80; PULSE 81; RESP 20; TEMP 37.1; O2SAT 99
[2021-12-14] VITALS (7 sets, daily range): BP systolic 116–197; BP diastolic 72–91; PULSE 65–78; RESP 16–20; TEMP 36.1–37.1; O2SAT 98–100
[2021-12-14] MEDS: Pyridoxine HCl (Vitamin B6) 50 MG TABLET 100 MG PO (08:54)
[2021-12-14] MEDS: Aspirin 81 MG TAB.CHEW PO (08:54)
[2021-12-14] MEDS: Folic Acid 1 MG TABLET PO (08:54)
[2021-12-14] MEDS: 0.9 % Sodium Chloride Flush 3 ML SYRINGE IVFLUSH ×2 (08:54→20:35)
[2021-12-14] MEDS: Metoprolol Tartrate 25 MG TABLET PO ×2 (08:54→20:33)
[2021-12-14] MEDS: predniSONE 20 MG TABLET 40 MG PO (08:54)
[2021-12-14] MEDS: Cholecalciferol (Vitamin D3) 25 MCG TABLET PO (08:55)
[2021-12-14] MEDS: Ascorbic Acid 500 MG TABLET PO (08:55)
[2021-12-14] MEDS: Ferrous Sulfate 324 MG TABLET.DR PO (08:55)
--- NOTE | 2021-12-14 09:33 | HO.PM.IMPN ---
Subjective Subjective Date of Service: 12/14/21 Interval History: cc: weakness interval history:feeling well Cardiovascular Cardiovascular: Reports no additional cardiovascular complaints Gastrointestinal Gastrointestinal: Reports no additional gastrointestinal complaints Physical Exam Vital Signs: Vital Signs: Last Vital Signs Temp 97.0 F 12/14/21 08:00 Pulse 65 12/14/21 08:00 Resp 20 12/14/21 08:00 BP 197/91 H 12/14/21 08:00 Pulse Ox 100 12/14/21 08:00 O2 Del Method 12/14/21 08:00 FiO2 97 12/10/21 11:24 BMI result Body Mass Index 20.5 General: AO X 3, no acute distress Resp: CTA bilateral, no accessory muscles used CVS: S1,S2,RRR GI: soft, non tender, non distended Neuro: motor grossly intact, alert Psych: appropriate affect, appropriate insight Objective Data Active Medications Acetaminophen (Acetaminophen 325 Mg Tablet) 650 mg PO Q6H PRN PRN Reason: Pain, Mild (Pain Scale 1-3) Last Admin: 12/03/21 21:55 Dose: 650 mg Documented By: JAEL Ascorbic Acid (Ascorbic Acid 500 Mg Tablet) [address] [facility] Last Admin: 12/14/21 08:55 Dose: 500 mg Documented By: CHERELLE Aspirin (Aspirin 81 Mg Tab.Chew) [address] [facility] Last Admin: 12/14/21 08:54 Dose: 81 mg Documented By: CHERELLE Docusate Sodium (Docusate Sodium 100 Mg/10 Ml Liquid) [address] [facility] Last Admin: 12/14/21 09:07 Dose: Not Given Documented By: CHERELLE Non-Admin Reason: Patient Refused Ferrous Sulfate (Ferrous Sulfate 324 Mg Cristine.) [address] [facility] Last Admin: 12/14/21 08:55 Dose: 324 mg Documented By: CHERELLE Folic Acid (Folic Acid 1 Mg Tablet) [address] [facility] Last Admin: 12/14/21 08:54 Dose: 1 mg Documented By: CHERELLE Heparin Sodium (Porcine) (Heparin Sodium,Porcine 5,000 Unit/Ml Vial) 5,[address] [facility] Last Admin: 12/14/21 00:37 Dose: Not Given Documented By: CEHL Non-Admin Reason: Patient Refused Remdesivir 100 mg/ Sodium (Chloride) 230 mls @ 115 mls/hr IV Q24H [facility] Stop: 12/14/21 15:59 Last Infusion: 12/13/21 16:11 Dose: 0 mls/hr Documented By: ANNA Metoprolol Tartrate (Metoprolol Tartrate 25 Mg Tablet) [address] [facility]; Protocol Last Admin: 12/14/21 08:54 Dose: 25 mg Documented By: CHERELLE Ondansetron HCl (Ondansetron Hcl 4 Mg/2 Ml Vial) 4 mg IVPUSH Q8H PRN PRN Reason: Nausea and Vomiting Pharmacy Consult (Consult Rx Perform Med Rec) 1 each MISCELLANE ONCE PRN PRN Reason: Consult order Pharmacy Consult (Consult Rx Perform Med Rec) 1 each MISCELLANE ONCE PRN PRN Reason: Consult order Prednisone (Prednisone 20 Mg Tablet) [address] [facility] Last Admin: 12/14/21 08:54 Dose: 40 mg Documented By: CHERELLE Pyridoxine HCl (Pyridoxine Hcl (Vitamin B6) 50 Mg Tablet) [address] [facility] Last Admin: 12/14/21 08:54 Dose: 100 mg Documented By: CHERELLE Sodium Chloride (0.9 % Sodium Chloride Flush 3 Ml Syringe) [address] [facility] Last Admin: 12/14/21 08:54 Dose: 3 ml Documented By: CHERELLE Vitamin D (Cholecalciferol (Vitamin D3) 25 Mcg Tablet) [address] [facility] Last Admin: 12/14/21 08:55 Dose: 25 mcg Documented By: CHERELLE Labs CBC & Chem 7: 12/13/21 07:14 12/13/21 07:14 Assessment and Plan (1) Syncope: Status: Acute (2) Rhabdomyolysis: Status: Acute (3) Fall: Status: Acute (4) NSVT (nonsustained ventricular tachycardia): Status: Acute Plan 76-year-old male with past medical history of COPD, CHF, CABG, who presents to the hospital with complaints of a syncopal episode, now on covid positive on placement screen asymptomatic covid has had 3 vaccines, 1st episode high risk due to frailty, lung cancer, PVD giving 3 day remdisivir - day 3 NSVT. Received Magnesium and potassium Continue metoprolol cardio appreciated, no further work up Hyperchloremic metabolic acidosis. Resolved Likely secondary to IV fluid, fluids d/c resolved syncope. No further episodes likely secondary to orthostasis he had slightly elevated troponin with no delta, no chest pain, EKG shows no ST T-wave changes suggestive of ACS Seen by Cardiology, not likely cardiac event that led to syncope. No further workup indicated at this time orthostatic hypotension. Resolved likely secondary to dehydration, decreased PO intake improved s/p IVF able to ambulate without dizziness PT rec home with PT rhabdomyolysis. Resolved CPK trending down secondary to fall Acute COPD exacerbation. 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 Farias at [facility] - continue outpatient follow up CAD s/p CABG Continue aspirin and beta-patricia. Statin on hold due to rhabdomyolysis Pancytopenia likely r/t underlying cancer/treatment transfused 1 unit prbc - improved DVT prophylaxis Heparin subQ reason for continued hospitalization:weakness, needs respite bed, unavailable due to covid + Quality Stroke Does the patient have a stroke diagnosis?: No VTE Prior VTE?: No VTE Risk Level:: Medical - moderate - high VTE Device Contraindication: Treatment Not Indicated VTE Drug Contraindication: N/A - Med Ordered
[2021-12-14] MEDS: Remdesivir 100 MG in 0.9 % Sodium Chloride 230 ML 115 MG IV (15:07)
[2021-12-15 03:27] VITALS: BP 159/77; PULSE 77; RESP 20; TEMP 36.5; O2SAT 98
[2021-12-15 07:55] VITALS: BP 159/80; PULSE 68; RESP 16; TEMP 36.5; O2SAT 100
[2021-12-15] MEDS: Cholecalciferol (Vitamin D3) 25 MCG TABLET PO (08:28)
[2021-12-15] MEDS: Pyridoxine HCl (Vitamin B6) 50 MG TABLET 100 MG PO (08:28)
[2021-12-15] MEDS: Folic Acid 1 MG TABLET PO (08:28)
[2021-12-15] MEDS: Ascorbic Acid 500 MG TABLET PO (08:28)
[2021-12-15] MEDS: Aspirin 81 MG TAB.CHEW PO (08:28)
[2021-12-15] MEDS: Metoprolol Tartrate 25 MG TABLET PO ×2 (08:28→19:53)
[2021-12-15] MEDS: 0.9 % Sodium Chloride Flush 3 ML SYRINGE IVFLUSH (08:29)
[2021-12-15] MEDS: Ferrous Sulfate 324 MG TABLET.DR PO (08:29)
[2021-12-15 10:05] LABS: Hemoglobin 9.5 g/dl (14.0-18.0); Mean Corpuscular HGB Conc 32.8 g/dl (31.0-36.0); Mean Corpuscular Hemoglobin 32.9 pg (27.0-33.0); Mean Corpuscular Volume 100.3 fL (80.0-98.0); Mean Platelet Volume 10.2 fL (9.4-12.4); Platelet Count 219 X10*3/uL (160-400); Red Blood Count 2.89 X10*6/uL (4.60-5.80); Red Cell Distribution Width 17.9 % (11.0-16.0); White Blood Count 7.5 X10*3/uL (4.8-10.8)
[2021-12-15 10:36] LABS: Anion Gap 15 (12-20); Blood Urea Nitrogen 31 mg/dL (9-16); Calcium 8.7 mg/dL (8.4-10.2); Carbon Dioxide 24 mmol/L (22-29); Chloride 106 mmol/L (96-108); Creatinine Clr Calc Pharmacy 50.3; Estimated Glomerular Filt Rate > 60; Glucose Fasting 131 mg/dL (60-99); Sodium 141 mmol/L (135-145)
[2021-12-15 11:18] VITALS: BP 112/62; PULSE 71; RESP 16; TEMP 36.4; O2SAT 99
--- NOTE | 2021-12-15 11:33 | MHC.CM.PN ---
Patient has a Respite bed at [facility] waiting for him. Patient recently tested positive for Covid. [facility] will re-eval on 12/17/21. CM will follow.
--- NOTE | 2021-12-15 14:15 | P.PNIM_ITS ---
Subjective Subjective Date of Service: 12/15/21 Interval History: the patient was seen and evaluated this morning Laying in bed, feels comfortable Denies any fever, chills or shortness of breath No reported other overnight events. Systemic review: No fever, chills or weakness No chest pain, palpitation No shortness of breath or coughing No abdominal pain, nausea or vomiting No urinary symptoms No any rash or wounds Physical Exam Vital Signs: Vital Signs: Last Vital Signs Temp 97.6 F 12/15/21 11:18 Pulse 71 12/15/21 11:18 Resp 16 12/15/21 11:18 BP 112/62 12/15/21 11:18 Pulse Ox 99 12/15/21 11:18 O2 Del Method 12/15/21 11:18 FiO2 97 12/10/21 11:24 BMI result Body Mass Index 20.5 Const: Other: Constitutional : Alert, not in distress Neck : Normal inspection, Supple Cardiovascular : RRR, no JVP, no lower extremity edema Respiratory : fair bilateral air entry, no crackles, wheezes or rhonchi Gastrointestinal: soft, lax, Normal bowel sounds, Non tender Skin : Warm, Dry Neurological : Alert & oriented x3, No focal deficit , CN 2-12 within normal Objective Data Active Medications Acetaminophen (Acetaminophen 325 Mg Tablet) 650 mg PO Q6H PRN PRN Reason: Pain, Mild (Pain Scale 1-3) Last Admin: 12/03/21 21:55 Dose: 650 mg Documented By: JAEL Ascorbic Acid (Ascorbic Acid 500 Mg Tablet) 500 mg PO DAILY [facility] Last Admin: 12/15/21 08:28 Dose: 500 mg Documented By: MARÍA Aspirin (Aspirin 81 Mg Tab.Chew) 81 mg PO DAILY [facility] Last Admin: 12/15/21 08:28 Dose: 81 mg Documented By: MARÍA Docusate Sodium (Docusate Sodium 100 Mg/10 Ml Liquid) 50 mg PO BID [facility] Last Admin: 12/15/21 08:29 Dose: Not Given Documented By: MARÍA Non-Admin Reason: Patient Refused Ferrous Sulfate (Ferrous Sulfate 324 Mg Tablet.) 324 mg PO DAILY [facility] Last Admin: 12/15/21 08:29 Dose: 324 mg Documented By: MARÍA Folic Acid (Folic Acid 1 Mg Tablet) 1 mg PO DAILY [facility] Last Admin: 12/15/21 08:28 Dose: 1 mg Documented By: MARÍA Heparin Sodium (Porcine) (Heparin Sodium,Porcine 5,000 Unit/Ml Vial) 5,000 unit SUBCUT Q12H [facility] Last Admin: 12/15/21 10:49 Dose: Not Given Documented By: MARÍA Non-Admin Reason: Patient Refused Metoprolol Tartrate (Metoprolol Tartrate 25 Mg Tablet) 25 mg PO BID [facility]; Protocol Last Admin: 12/15/21 08:28 Dose: 25 mg Documented By: MARÍA Ondansetron HCl (Ondansetron Hcl 4 Mg/2 Ml Vial) 4 mg IVPUSH Q8H PRN PRN Reason: Nausea and Vomiting Pharmacy Consult (Consult Rx Perform Med Rec) 1 each MISCELLANE ONCE PRN PRN Reason: Consult order Pharmacy Consult (Consult Rx Perform Med Rec) 1 each MISCELLANE ONCE PRN PRN Reason: Consult order Pyridoxine HCl (Pyridoxine Hcl (Vitamin B6) 50 Mg Tablet) 100 mg PO DAILY [facility] Last Admin: 12/15/21 08:28 Dose: 100 mg Documented By: MARÍA Sodium Chloride (0.9 % Sodium Chloride Flush 3 Ml Syringe) 3 ml IVFLUSH QSHIFT [facility] Last Admin: 12/15/21 08:29 Dose: 3 ml Documented By: MARÍA Vitamin D (Cholecalciferol (Vitamin D3) 25 Mcg Tablet) 25 mcg PO DAILY [facility] Last Admin: 12/15/21 08:28 Dose: 25 mcg Documented By: MARÍA Labs CBC & Chem 7: 12/15/21 09:58 12/15/21 09:58 Labs: Laboratory Results - last 24 hr 12/15/21 12/15/21 09:58 09:58 MCV 100.3 H MCH 32.9 MCHC 32.8 RDW 17.9 H Plt Count 219 MPV 10.2 Absolute Nucleated RBC 0.000 Nucleated RBC % (auto) 0.0 Anion Gap 15 Estim Creat Clear Calc 50.3 Estimated GFR > 60 Fasting Glucose 131 H D Calcium 8.7 Assessment and Plan (1) Syncope: Status: Acute (2) Fall: Status: Acute (3) COVID-19 virus infection: Status: Acute Plan 76-year-old male with past medical history of COPD, CHF, CABG, who presents to the hospital with complaints of a syncopal episode, now on covid positive on placement screen asymptomatic covid has had 3 vaccines, 1st episode high risk due to frailty, lung cancer, PVD Finished 3 days of remdisivir On room air NSVT. Received Magnesium and potassium Continue metoprolol cardio appreciated, no further work up Hyperchloremic metabolic acidosis. Resolved Likely secondary to IV fluid, fluids d/c resolved syncope. No further episodes likely secondary to orthostasis he had slightly elevated troponin with no delta, no chest pain, EKG shows no ST T-wave changes suggestive of ACS Seen by Cardiology, not likely cardiac event that led to syncope. No further workup indicated at this time orthostatic hypotension. Resolved likely secondary to dehydration, decreased PO intake improved s/p IVF able to ambulate without dizziness PT rec home with PT rhabdomyolysis. Resolved CPK trending down secondary to fall Acute COPD exacerbation. 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 Farias at [facility] - continue outpatient follow up CAD s/p CABG Continue aspirin and beta-patricia. Statin on hold due to rhabdomyolysis Pancytopenia likely r/t underlying cancer/treatment transfused 1 unit prbc - improved DVT prophylaxis Heparin subQ reason for continued hospitalization:weakness, needs respite bed, unavailable due to covid +, to get re-evaluation by Monday Quality Stroke Does the patient have a stroke diagnosis?: No VTE Prior VTE?: No VTE Risk Level:: Medical - moderate - high VTE Device Contraindication: Treatment Not Indicated VTE Drug Contraindication: N/A - Med Ordered
[2021-12-15 15:28] VITALS: BP 107/77; PULSE 77; RESP 17; TEMP 36.4; O2SAT 98
[2021-12-15 19:43] VITALS: BP 149/70; PULSE 78; RESP 19; TEMP 37.1; O2SAT 98
[2021-12-15] MEDS: Acetaminophen 325 MG TABLET 650 MG PO (20:14)
[2021-12-15 23:47] VITALS: BP 134/73; PULSE 78; RESP 20; TEMP 36.6; O2SAT 98
[2021-12-16] VITALS (7 sets, daily range): BP systolic 123–171; BP diastolic 62–82; PULSE 60–88; RESP 16–18; TEMP 36.3–37.2; O2SAT 97–99
[2021-12-16] MEDS: Pyridoxine HCl (Vitamin B6) 50 MG TABLET 100 MG PO (09:06)
[2021-12-16] MEDS: Folic Acid 1 MG TABLET PO (09:06)
[2021-12-16] MEDS: Ferrous Sulfate 324 MG TABLET.DR PO (09:06)
[2021-12-16] MEDS: Ascorbic Acid 500 MG TABLET PO (09:07)
[2021-12-16] MEDS: Cholecalciferol (Vitamin D3) 25 MCG TABLET PO (09:07)
[2021-12-16] MEDS: Metoprolol Tartrate 25 MG TABLET PO ×2 (09:07→22:11)
[2021-12-16] MEDS: Aspirin 81 MG TAB.CHEW PO (09:10)
--- NOTE | 2021-12-16 13:02 | P.PNIM_ITS ---
Subjective Subjective Date of Service: 12/16/21 Interval History: the patient was seen and evaluated this morning Laying in bed, feels comfortable Denies any fever, chills or shortness of breath No reported other overnight events. Systemic review: No fever, chills or weakness No chest pain, palpitation No shortness of breath or coughing No abdominal pain, nausea or vomiting No urinary symptoms No any rash or wounds Physical Exam Vital Signs: Vital Signs: Last Vital Signs Temp 97.4 F 12/16/21 11:25 Pulse 60 12/16/21 11:25 Resp 18 12/16/21 11:25 BP 129/62 12/16/21 11:25 Pulse Ox 98 12/16/21 11:25 O2 Del Method 12/16/21 11:25 FiO2 97 12/10/21 11:24 BMI result Body Mass Index 20.5 Const: Other: Constitutional : Alert, not in distress Neck : Normal inspection, Supple Cardiovascular : RRR, no JVP, no lower extremity edema Respiratory : fair bilateral air entry, no crackles, wheezes or rhonchi Gastrointestinal: soft, lax, Normal bowel sounds, Non tender Skin : Warm, Dry Neurological : Alert & oriented x3, No focal deficit , CN 2-12 within normal Objective Data Active Medications Acetaminophen (Acetaminophen 325 Mg Tablet) 650 mg PO Q6H PRN PRN Reason: Pain, Mild (Pain Scale 1-3) Last Admin: 12/15/21 20:14 Dose: 650 mg Documented By: NEVAEH Ascorbic Acid (Ascorbic Acid 500 Mg Tablet) 500 mg PO DAILY [facility] Last Admin: 12/16/21 09:07 Dose: 500 mg Documented By: CHERELLE Aspirin (Aspirin 81 Mg Tab.Chew) 81 mg PO DAILY [facility] Last Admin: 12/16/21 09:10 Dose: 81 mg Documented By: CHERELLE Docusate Sodium (Docusate Sodium 100 Mg/10 Ml Liquid) 50 mg PO BID [facility] Last Admin: 12/16/21 09:07 Dose: Not Given Documented By: CHERELLE Non-Admin Reason: Patient Refused Ferrous Sulfate (Ferrous Sulfate 324 Mg Tablet.) 324 mg PO DAILY [facility] Last Admin: 12/16/21 09:06 Dose: 324 mg Documented By: CHERELLE Folic Acid (Folic Acid 1 Mg Tablet) 1 mg PO DAILY [facility] Last Admin: 12/16/21 09:06 Dose: 1 mg Documented By: CHERELLE Heparin Sodium (Porcine) (Heparin Sodium,Porcine 5,000 Unit/Ml Vial) 5,000 unit SUBCUT Q12H [facility] Last Admin: 12/16/21 11:46 Dose: Not Given Documented By: CHERELLE Non-Admin Reason: Patient Refused Metoprolol Tartrate (Metoprolol Tartrate 25 Mg Tablet) 25 mg PO BID [facility]; Protocol Last Admin: 12/16/21 09:07 Dose: 25 mg Documented By: CHERELLE Ondansetron HCl (Ondansetron Hcl 4 Mg/2 Ml Vial) 4 mg IVPUSH Q8H PRN PRN Reason: Nausea and Vomiting Pharmacy Consult (Consult Rx Perform Med Rec) 1 each MISCELLANE ONCE PRN PRN Reason: Consult order Pharmacy Consult (Consult Rx Perform Med Rec) 1 each MISCELLANE ONCE PRN PRN Reason: Consult order Pyridoxine HCl (Pyridoxine Hcl (Vitamin B6) 50 Mg Tablet) 100 mg PO DAILY [facility] Last Admin: 12/16/21 09:06 Dose: 100 mg Documented By: CHERELLE Sodium Chloride (0.9 % Sodium Chloride Flush 3 Ml Syringe) 3 ml IVFLUSH QSHIFT [facility] Last Admin: 12/16/21 07:30 Dose: Not Given Documented By: CHERELLE Non-Admin Reason: No Access Vitamin D (Cholecalciferol (Vitamin D3) 25 Mcg Tablet) 25 mcg PO DAILY [facility] Last Admin: 12/16/21 09:07 Dose: 25 mcg Documented By: CHERELLE Labs CBC & Chem 7: 12/15/21 09:58 12/15/21 09:58 Assessment and Plan (1) COVID-19 virus infection: Status: Acute (2) NSVT (nonsustained ventricular tachycardia): Status: Acute Plan 76-year-old male with past medical history of COPD, CHF, CABG, who presents to the hospital with complaints of a syncopal episode, now on covid positive on placement screen asymptomatic covid has had 3 vaccines, 1st episode high risk due to frailty, lung cancer, PVD Finished 3 days of remdisivir On room air NSVT. Received Magnesium and potassium Continue metoprolol cardio appreciated, no further work up Hyperchloremic metabolic acidosis. Resolved Likely secondary to IV fluid, fluids d/c resolved syncope. No further episodes likely secondary to orthostasis he had slightly elevated troponin with no delta, no chest pain, EKG shows no ST T-wave changes suggestive of ACS Seen by Cardiology, not likely cardiac event that led to syncope. No further workup indicated at this time orthostatic hypotension. Resolved likely secondary to dehydration, decreased PO intake improved s/p IVF able to ambulate without dizziness PT rec home with PT rhabdomyolysis. Resolved CPK trending down secondary to fall Acute COPD exacerbation. 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 Farias at [facility] - continue outpatient follow up CAD s/p CABG Continue aspirin and beta-patricia. Statin on hold due to rhabdomyolysis Pancytopenia likely r/t underlying cancer/treatment transfused 1 unit prbc - improved DVT prophylaxis Heparin subQ reason for continued hospitalization:weakness, needs respite bed, unavailable due to covid +, to get re-evaluation by Monday Quality Stroke Does the patient have a stroke diagnosis?: No VTE Prior VTE?: No VTE Risk Level:: Medical - moderate - high VTE Device Contraindication: Treatment Not Indicated VTE Drug Contraindication: N/A - Med Ordered
[2021-12-16] MEDS: 0.9 % Sodium Chloride Flush 3 ML SYRINGE IVFLUSH (22:11)
[2021-12-17 03:57] VITALS: BP 129/58; PULSE 93; RESP 18; O2SAT 95
--- NOTE | 2021-12-17 04:31 | PC.NURSE ---
LOGGING CONTRACTOR was in a room doing patient care. This RN was walking by and LOGGING CONTRACTOR said she heard someone shouting for help. This RN went into room 475 and found patient laying on his right side behind the recliner that was in the corner of the room. Patient alert and oriented x4. Vitals stable. Pt stated no head strike or any other injuries. Pt unable to stand on his own. This RN and another RN assisted pt to stand, walk with his walker to the recliner. Patient educated on high fall risk protocol which was put into place. Camera placed in room, chair alarm on patient in recliner. Red socks on. Product Development Specialist and hospitalist notified. Incident report filed.
[2021-12-17 07:33] VITALS: BP 112/56; PULSE 85; RESP 20; TEMP 36.8; O2SAT 97
[2021-12-17] MEDS: Pyridoxine HCl (Vitamin B6) 50 MG TABLET 100 MG PO (09:11)
[2021-12-17] MEDS: Cholecalciferol (Vitamin D3) 25 MCG TABLET PO (09:11)
[2021-12-17] MEDS: Folic Acid 1 MG TABLET PO (09:11)
[2021-12-17] MEDS: Ascorbic Acid 500 MG TABLET PO (09:11)
[2021-12-17] MEDS: Aspirin 81 MG TAB.CHEW PO (09:11)
[2021-12-17] MEDS: Ferrous Sulfate 324 MG TABLET.DR PO (09:11)
[2021-12-17] MEDS: Metoprolol Tartrate 25 MG TABLET PO ×2 (09:11→20:41)
--- NOTE | 2021-12-17 11:22 | MHC.CM.PN ---
Addendum entered by Lotus Angel 12/17/21 12:27: PT INFORMED OF BARRIER TO DC. HE REPORTS HIS HOME WILL NOT BE REPAIRED FOR AT LEAST ANOTHER WEEK HE ALSO REPORTS FRUSTRATION HE WAS ANXIOUS TO DC TODAY PT WILL DC TO [facility] PENDING BED AVAILABILITY Addendum entered by Lotus Angel 12/17/21 11:51: [facility] LIAISON HAS INDICATED SHE WILL CONTACT CM OVER THE WEEKEND IF THERE ARE ANY UNANTICIPATED DISCHARGES Addendum entered by Lotus Angel 12/17/21 11:43: REFERRAL RESPONSES HAVE BEEN RECEIVED AND THERE ARE NO ID CONTRACTED FACILITIES OFFERING A BED AT THIS TIME [facility] IS STILL FOLLOWING HOWEVER SAY THEY HAVE NO OPENINGS TODAY CM WILL CHECK WITH THEM AGAIN ON MONDAY THEY INDICATE NO DISCHARGES PLANNED FOR THE WEEKEND Original Note: ORIGINAL DC PLAN WAS RESPITE AT [facility], HOWEVER PT TESTED + FOR COVID AND THEREFORE REQUIRED 5 MORE DAYS OF INPATIENT BEFORE A SNF COULD ACCEPT. [facility] UPDATED THIS MORNING AND INDICATING THEY HAVE NO BED TO OFFER THIS PT AT THIS TIME. REFERRAL UPDATED AND SENT TO ALL [facility] CONTRACTED [facility]FS IN THE AREA
[2021-12-17 12:00] VITALS: BP 152/67; PULSE 83; RESP 20; TEMP 36.5; O2SAT 98
--- NOTE | 2021-12-17 13:26 | HO.PM.IMPN ---
Subjective Subjective Date of Service: 12/17/21 Interval History: the patient was seen and evaluated this morning Laying in bed, feels comfortable Denies any fever, chills or shortness of breath No reported other overnight events. Systemic review: No fever, chills or weakness No chest pain, palpitation No shortness of breath or coughing No abdominal pain, nausea or vomiting No urinary symptoms No any rash or wounds Physical Exam Vital Signs: Vital Signs: Last Vital Signs Temp 97.7 F 12/17/21 12:00 Pulse 83 12/17/21 12:00 Resp 20 12/17/21 12:00 BP 152/67 H 12/17/21 12:00 Pulse Ox 98 12/17/21 12:00 O2 Del Method 12/17/21 12:00 FiO2 97 12/10/21 11:24 BMI result Body Mass Index 20.5 Const: Other: Constitutional : Alert, not in distress Neck : Normal inspection, Supple Cardiovascular : RRR, no JVP, no lower extremity edema Respiratory : fair bilateral air entry, no crackles, wheezes or rhonchi Gastrointestinal: soft, lax, Normal bowel sounds, Non tender Skin : Warm, Dry Neurological : Alert & oriented x3, No focal deficit , CN 2-12 within normal Objective Data Active Medications Acetaminophen (Acetaminophen 325 Mg Tablet) 650 mg PO Q6H PRN PRN Reason: Pain, Mild (Pain Scale 1-3) Last Admin: 12/15/21 20:14 Dose: 650 mg Documented By: NEVAEH Ascorbic Acid (Ascorbic Acid 500 Mg Tablet) 500 mg PO DAILY [facility] Last Admin: 12/17/21 09:11 Dose: 500 mg Documented By: CHERELLE Aspirin (Aspirin 81 Mg Tab.Chew) 81 mg PO DAILY [facility] Last Admin: 12/17/21 09:11 Dose: 81 mg Documented By: CHERELLE Docusate Sodium (Docusate Sodium 100 Mg/10 Ml Liquid) 50 mg PO BID [facility] Last Admin: 12/17/21 08:45 Dose: Not Given Documented By: CHERELLE Non-Admin Reason: Patient Refused Ferrous Sulfate (Ferrous Sulfate 324 Mg Tablet.) 324 mg PO DAILY [facility] Last Admin: 12/17/21 09:11 Dose: 324 mg Documented By: CHERELLE Folic Acid (Folic Acid 1 Mg Tablet) 1 mg PO DAILY [facility] Last Admin: 12/17/21 09:11 Dose: 1 mg Documented By: CHERELLE Heparin Sodium (Porcine) (Heparin Sodium,Porcine 5,000 Unit/Ml Vial) 5,000 unit SUBCUT Q12H [facility] Last Admin: 12/17/21 11:48 Dose: Not Given Documented By: CHERELLE Non-Admin Reason: Patient Refused Metoprolol Tartrate (Metoprolol Tartrate 25 Mg Tablet) 25 mg PO BID [facility]; Protocol Last Admin: 12/17/21 09:11 Dose: 25 mg Documented By: CHERELLE Ondansetron HCl (Ondansetron Hcl 4 Mg/2 Ml Vial) 4 mg IVPUSH Q8H PRN PRN Reason: Nausea and Vomiting Pharmacy Consult (Consult Rx Perform Med Rec) 1 each MISCELLANE ONCE PRN PRN Reason: Consult order Pharmacy Consult (Consult Rx Perform Med Rec) 1 each MISCELLANE ONCE PRN PRN Reason: Consult order Pyridoxine HCl (Pyridoxine Hcl (Vitamin B6) 50 Mg Tablet) 100 mg PO DAILY [facility] Last Admin: 12/17/21 09:11 Dose: 100 mg Documented By: CHERELLE Sodium Chloride (0.9 % Sodium Chloride Flush 3 Ml Syringe) 3 ml IVFLUSH QSHIFT [facility] Last Admin: 12/17/21 08:45 Dose: Not Given Documented By: CHERELLE Non-Admin Reason: No Access Vitamin D (Cholecalciferol (Vitamin D3) 25 Mcg Tablet) 25 mcg PO DAILY [facility] Last Admin: 12/17/21 09:11 Dose: 25 mcg Documented By: CHERELLE Labs CBC & Chem 7: 12/15/21 09:58 12/15/21 09:58 Assessment and Plan (1) COVID-19 virus infection: Status: Acute (2) NSVT (nonsustained ventricular tachycardia): Status: Acute Plan 76-year-old male with past medical history of COPD, CHF, CABG, who presents to the hospital with complaints of a syncopal episode, now on covid positive on placement screen asymptomatic covid has had 3 vaccines, 1st episode high risk due to frailty, lung cancer, PVD Finished 3 days of remdisivir On room air NSVT. Received Magnesium and potassium Continue metoprolol cardio appreciated, no further work up syncope. No further episodes likely secondary to orthostasis he had slightly elevated troponin with no delta, no chest pain, EKG shows no ST T-wave changes suggestive of ACS Seen by Cardiology, not likely cardiac event that led to syncope. No further workup indicated at this time orthostatic hypotension. Resolved likely secondary to dehydration, decreased PO intake improved s/p IVF able to ambulate without dizziness PT rec home with PT rhabdomyolysis. Resolved CPK trending down secondary to fall Acute COPD exacerbation. 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 Farias at [facility] - continue outpatient follow up CAD s/p CABG Continue aspirin and beta-patricia. Statin on hold due to rhabdomyolysis Pancytopenia likely r/t underlying cancer/treatment transfused 1 unit prbc - improved DVT prophylaxis Heparin subQ reason for continued hospitalization:weakness, needs respite bed, unavailable due to covid + pending safe discharge plan Quality Stroke Does the patient have a stroke diagnosis?: No VTE Prior VTE?: No VTE Risk Level:: Medical - moderate - high VTE Device Contraindication: Treatment Not Indicated VTE Drug Contraindication: N/A - Med Ordered
[2021-12-17 15:57] VITALS: BP 162/74; PULSE 81; RESP 20; TEMP 37.6; O2SAT 100
[2021-12-17 20:00] VITALS: BP 136/69; PULSE 104; RESP 20; TEMP 36.8; O2SAT 98
[2021-12-17 23:36] VITALS: BP 155/70; PULSE 93; RESP 16; TEMP 37.1; O2SAT 97
[2021-12-18 03:27] VITALS: BP 147/69; PULSE 83; RESP 16; TEMP 37; O2SAT 95
[2021-12-18 08:00] VITALS: BP 163/73; PULSE 82; RESP 20; TEMP 36.6; O2SAT 95
[2021-12-18] MEDS: 0.9 % Sodium Chloride Flush 3 ML SYRINGE IVFLUSH (10:30)
[2021-12-18] MEDS: Metoprolol Tartrate 25 MG TABLET PO ×2 (10:31→21:14)
[2021-12-18] MEDS: Ferrous Sulfate 324 MG TABLET.DR PO (10:31)
[2021-12-18] MEDS: Ascorbic Acid 500 MG TABLET PO (10:31)
[2021-12-18] MEDS: Pyridoxine HCl (Vitamin B6) 50 MG TABLET 100 MG PO (10:31)
[2021-12-18] MEDS: Cholecalciferol (Vitamin D3) 25 MCG TABLET PO (10:31)
[2021-12-18] MEDS: Folic Acid 1 MG TABLET PO (10:31)
[2021-12-18] MEDS: Aspirin 81 MG TAB.CHEW PO (10:31)
[2021-12-18 12:00] VITALS: BP 133/64; PULSE 82; RESP 20; TEMP 36.7; O2SAT 99
--- NOTE | 2021-12-18 12:18 | P.PNIM_ITS ---
Subjective Subjective Date of Service: 12/18/21 Interval History: the patient was seen and evaluated this morning Laying in bed, feels comfortable Denies any fever, chills or shortness of breath No reported other overnight events. Systemic review: No fever, chills or weakness No chest pain, palpitation No shortness of breath or coughing No abdominal pain, nausea or vomiting No urinary symptoms No any rash or wounds Physical Exam Vital Signs: Vital Signs: Last Vital Signs Temp 97.8 F 12/18/21 08:00 Pulse 82 12/18/21 08:00 Resp 20 12/18/21 08:00 BP 163/73 H 12/18/21 08:00 Pulse Ox 95 12/18/21 08:00 O2 Del Method 12/18/21 08:00 FiO2 97 12/10/21 11:24 BMI result Body Mass Index 20.5 Const: Other: Constitutional : Alert, not in distress Neck : Normal inspection, Supple Cardiovascular : RRR, no JVP, no lower extremity edema Respiratory : fair bilateral air entry, no crackles, wheezes or rhonchi Gastrointestinal: soft, lax, Normal bowel sounds, Non tender Skin : Warm, Dry Neurological : Alert & oriented x3, No focal deficit , CN 2-12 within normal Objective Data Active Medications Acetaminophen (Acetaminophen 325 Mg Tablet) 650 mg PO Q6H PRN PRN Reason: Pain, Mild (Pain Scale 1-3) Last Admin: 12/15/21 20:14 Dose: 650 mg Documented By: NEVAEH Ascorbic Acid (Ascorbic Acid 500 Mg Tablet) 500 mg PO DAILY [facility] Last Admin: 12/18/21 10:31 Dose: 500 mg Documented By: JESSIKA Aspirin (Aspirin 81 Mg Tab.Chew) 81 mg PO DAILY [facility] Last Admin: 12/18/21 10:31 Dose: 81 mg Documented By: JESSIKA Docusate Sodium (Docusate Sodium 100 Mg/10 Ml Liquid) 50 mg PO BID [facility] Last Admin: 12/18/21 10:32 Dose: Not Given Documented By: JESSIKA Non-Admin Reason: Patient Refused Ferrous Sulfate (Ferrous Sulfate 324 Mg Tablet.) 324 mg PO DAILY [facility] Last Admin: 12/18/21 10:31 Dose: 324 mg Documented By: JESSIKA Folic Acid (Folic Acid 1 Mg Tablet) 1 mg PO DAILY [facility] Last Admin: 12/18/21 10:31 Dose: 1 mg Documented By: JESSIKA Heparin Sodium (Porcine) (Heparin Sodium,Porcine 5,000 Unit/Ml Vial) 5,000 unit SUBCUT Q12H [facility] Last Admin: 12/18/21 10:32 Dose: Not Given Documented By: JESSIKA Non-Admin Reason: Patient Refused Metoprolol Tartrate (Metoprolol Tartrate 25 Mg Tablet) 25 mg PO BID [facility]; Protocol Last Admin: 12/18/21 10:31 Dose: 25 mg Documented By: JESSIKA Ondansetron HCl (Ondansetron Hcl 4 Mg/2 Ml Vial) 4 mg IVPUSH Q8H PRN PRN Reason: Nausea and Vomiting Pharmacy Consult (Consult Rx Perform Med Rec) 1 each MISCELLANE ONCE PRN PRN Reason: Consult order Pharmacy Consult (Consult Rx Perform Med Rec) 1 each MISCELLANE ONCE PRN PRN Reason: Consult order Pyridoxine HCl (Pyridoxine Hcl (Vitamin B6) 50 Mg Tablet) 100 mg PO DAILY [facility] Last Admin: 12/18/21 10:31 Dose: 100 mg Documented By: JESSIKA Sodium Chloride (0.9 % Sodium Chloride Flush 3 Ml Syringe) 3 ml IVFLUSH QSHIFT [facility] Last Admin: 12/18/21 10:30 Dose: 3 ml Documented By: JESSIKA Vitamin D (Cholecalciferol (Vitamin D3) 25 Mcg Tablet) 25 mcg PO DAILY [facility] Last Admin: 12/18/21 10:31 Dose: 25 mcg Documented By: JESSIKA Labs CBC & Chem 7: 12/15/21 09:58 12/15/21 09:58 Assessment and Plan (1) COVID-19 virus infection: Status: Acute (2) NSVT (nonsustained ventricular tachycardia): Status: Acute (3) Syncope: Status: Acute Plan 76-year-old male with past medical history of COPD, CHF, CABG, who presents to the hospital with complaints of a syncopal episode, now on covid positive on placement screen asymptomatic covid has had 3 vaccines, 1st episode high risk due to frailty, lung cancer, PVD Finished 3 days of remdisivir On room air NSVT. Received Magnesium and potassium Continue metoprolol cardio appreciated, no further work up syncope. No further episodes likely secondary to orthostasis he had slightly elevated troponin with no delta, no chest pain, EKG shows no ST T-wave changes suggestive of ACS Seen by Cardiology, not likely cardiac event that led to syncope. No further workup indicated at this time orthostatic hypotension. Resolved likely secondary to dehydration, decreased PO intake improved s/p IVF able to ambulate without dizziness PT rec home with PT rhabdomyolysis. Resolved CPK trending down secondary to fall Acute COPD exacerbation. 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 Farias at [facility] - continue outpatient follow up CAD s/p CABG Continue aspirin and beta-patricia. Statin on hold due to rhabdomyolysis Pancytopenia likely r/t underlying cancer/treatment transfused 1 unit prbc - improved DVT prophylaxis Heparin subQ reason for continued hospitalization:weakness, needs respite bed, unavailable due to covid + pending safe discharge plan Quality Stroke Does the patient have a stroke diagnosis?: No VTE Prior VTE?: No VTE Risk Level:: Medical - moderate - high VTE Device Contraindication: Treatment Not Indicated VTE Drug Contraindication: N/A - Med Ordered
[2021-12-18] MEDS: Acetaminophen 325 MG TABLET 650 MG PO (13:57)
[2021-12-18 16:00] VITALS: BP 108/58; PULSE 80; RESP 18; TEMP 36.4
[2021-12-18 19:40] VITALS: BP 105/53; PULSE 83; RESP 19; TEMP 36.5; O2SAT 97
[2021-12-18 23:23] VITALS: BP 149/73; PULSE 73; RESP 18; TEMP 37.3; O2SAT 96
[2021-12-19 03:36] VITALS: BP 149/68; PULSE 79; RESP 20; TEMP 37; O2SAT 100
[2021-12-19 08:00] VITALS: BP 124/56; PULSE 76; RESP 20; TEMP 36; O2SAT 99
[2021-12-19] MEDS: Aspirin 81 MG TAB.CHEW PO (10:11)
[2021-12-19] MEDS: Pyridoxine HCl (Vitamin B6) 50 MG TABLET 100 MG PO (10:11)
[2021-12-19] MEDS: Folic Acid 1 MG TABLET PO (10:12)
[2021-12-19] MEDS: Ferrous Sulfate 324 MG TABLET.DR PO (10:12)
[2021-12-19] MEDS: Metoprolol Tartrate 25 MG TABLET PO ×2 (10:12→20:38)
[2021-12-19] MEDS: Ascorbic Acid 500 MG TABLET PO (10:12)
[2021-12-19] MEDS: Cholecalciferol (Vitamin D3) 25 MCG TABLET PO (10:12)
[2021-12-19 12:00] VITALS: BP 115/53; PULSE 77; RESP 20; TEMP 35.9; O2SAT 100
--- NOTE | 2021-12-19 12:21 | HO.PM.IMPN ---
Subjective Subjective Date of Service: 12/19/21 Interval History: the patient was seen and evaluated this morning Laying in bed, feels comfortable Denies any fever, chills or shortness of breath No reported other overnight events. Systemic review: No fever, chills or weakness No chest pain, palpitation No shortness of breath or coughing No abdominal pain, nausea or vomiting No urinary symptoms No any rash or wounds Physical Exam Vital Signs: Vital Signs: Last Vital Signs Temp 96.6 F L 12/19/21 12:00 Pulse 77 12/19/21 12:00 Resp 20 12/19/21 12:00 BP 115/53 L 12/19/21 12:00 Pulse Ox 100 12/19/21 12:00 O2 Del Method 12/19/21 12:00 FiO2 97 12/10/21 11:24 BMI result Body Mass Index 20.5 Const: Other: Constitutional : Alert, not in distress Neck : Normal inspection, Supple Cardiovascular : RRR, no JVP, no lower extremity edema Respiratory : fair bilateral air entry, no crackles, wheezes or rhonchi Gastrointestinal: soft, lax, Normal bowel sounds, Non tender Skin : Warm, Dry Neurological : Alert & oriented x3, No focal deficit , CN 2-12 within normal Objective Data Active Medications Acetaminophen (Acetaminophen 325 Mg Tablet) 650 mg PO Q6H PRN PRN Reason: Pain, Mild (Pain Scale 1-3) Last Admin: 12/18/21 13:57 Dose: 650 mg Documented By: JESSIKA Ascorbic Acid (Ascorbic Acid 500 Mg Tablet) 500 mg PO DAILY [facility] Last Admin: 12/19/21 10:12 Dose: 500 mg Documented By: JESSIKA Aspirin (Aspirin 81 Mg Tab.Chew) 81 mg PO DAILY [facility] Last Admin: 12/19/21 10:11 Dose: 81 mg Documented By: JESSIKA Docusate Sodium (Docusate Sodium 100 Mg/10 Ml Liquid) 50 mg PO BID [facility] Last Admin: 12/19/21 10:04 Dose: Not Given Documented By: JESSIKA Non-Admin Reason: Patient Refused Ferrous Sulfate (Ferrous Sulfate 324 Mg Tablet.) 324 mg PO DAILY [facility] Last Admin: 12/19/21 10:12 Dose: 324 mg Documented By: JESSIKA Folic Acid (Folic Acid 1 Mg Tablet) 1 mg PO DAILY [facility] Last Admin: 12/19/21 10:12 Dose: 1 mg Documented By: JESSIKA Heparin Sodium (Porcine) (Heparin Sodium,Porcine 5,000 Unit/Ml Vial) 5,000 unit SUBCUT Q12H [facility] Last Admin: 12/19/21 10:04 Dose: Not Given Documented By: JESSIKA Non-Admin Reason: Patient Refused Metoprolol Tartrate (Metoprolol Tartrate 25 Mg Tablet) 25 mg PO BID [facility]; Protocol Last Admin: 12/19/21 10:12 Dose: 25 mg Documented By: JESSIKA Ondansetron HCl (Ondansetron Hcl 4 Mg/2 Ml Vial) 4 mg IVPUSH Q8H PRN PRN Reason: Nausea and Vomiting Pharmacy Consult (Consult Rx Perform Med Rec) 1 each MISCELLANE ONCE PRN PRN Reason: Consult order Pharmacy Consult (Consult Rx Perform Med Rec) 1 each MISCELLANE ONCE PRN PRN Reason: Consult order Pyridoxine HCl (Pyridoxine Hcl (Vitamin B6) 50 Mg Tablet) 100 mg PO DAILY [facility] Last Admin: 12/19/21 10:11 Dose: 100 mg Documented By: JESSIKA Sodium Chloride (0.9 % Sodium Chloride Flush 3 Ml Syringe) 3 ml IVFLUSH QSHIFT [facility] Last Admin: 12/19/21 10:04 Dose: Not Given Documented By: JESSIKA Non-Admin Reason: No Access Vitamin D (Cholecalciferol (Vitamin D3) 25 Mcg Tablet) 25 mcg PO DAILY [facility] Last Admin: 12/19/21 10:12 Dose: 25 mcg Documented By: JESSIKA Labs CBC & Chem 7: 12/15/21 09:58 12/15/21 09:58 Assessment and Plan (1) COVID-19 virus infection: Status: Acute Plan 76-year-old male with past medical history of COPD, CHF, CABG, who presents to the hospital with complaints of a syncopal episode, now on covid positive on placement screen asymptomatic covid has had 3 vaccines, 1st episode high risk due to frailty, lung cancer, PVD Finished 3 days of remdisivir On room air NSVT. Received Magnesium and potassium Continue metoprolol cardio appreciated, no further work up syncope. No further episodes likely secondary to orthostasis he had slightly elevated troponin with no delta, no chest pain, EKG shows no ST T-wave changes suggestive of ACS Seen by Cardiology, not likely cardiac event that led to syncope. No further workup indicated at this time orthostatic hypotension. Resolved likely secondary to dehydration, decreased PO intake improved s/p IVF able to ambulate without dizziness PT rec home with PT rhabdomyolysis. Resolved CPK trending down secondary to fall Acute COPD exacerbation. 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 Farias at [facility] - continue outpatient follow up CAD s/p CABG Continue aspirin and beta-patricia. Statin on hold due to rhabdomyolysis Pancytopenia likely r/t underlying cancer/treatment transfused 1 unit prbc - improved DVT prophylaxis Heparin subQ reason for continued hospitalization:weakness, needs respite bed, unavailable due to covid + pending safe discharge plan Quality Stroke Does the patient have a stroke diagnosis?: No VTE Prior VTE?: No VTE Risk Level:: Medical - moderate - high VTE Device Contraindication: Treatment Not Indicated VTE Drug Contraindication: N/A - Med Ordered
[2021-12-19 16:00] VITALS: BP 132/64; PULSE 77; RESP 20; O2SAT 98
[2021-12-19] MEDS: Acetaminophen 325 MG TABLET 650 MG PO (16:34)
[2021-12-19 19:59] VITALS: BP 105/62; PULSE 78; RESP 19; TEMP 36.5; O2SAT 98
[2021-12-19 23:43] VITALS: BP 163/86; PULSE 75; RESP 20; TEMP 37.1; O2SAT 94
[2021-12-20 02:56] VITALS: BP 126/65; PULSE 72; RESP 20; TEMP 36.4; O2SAT 94
[2021-12-20 07:29] VITALS: BP 160/72; PULSE 59; RESP 18; TEMP 36.4; O2SAT 98
[2021-12-20] MEDS: 0.9 % Sodium Chloride Flush 3 ML SYRINGE IVFLUSH (09:52)
[2021-12-20] MEDS: Ferrous Sulfate 324 MG TABLET.DR PO (09:52)
[2021-12-20] MEDS: Metoprolol Tartrate 25 MG TABLET PO ×2 (09:52→19:05)
[2021-12-20] MEDS: Aspirin 81 MG TAB.CHEW PO (09:52)
[2021-12-20] MEDS: Folic Acid 1 MG TABLET PO (09:52)
[2021-12-20] MEDS: Cholecalciferol (Vitamin D3) 25 MCG TABLET PO (09:52)
[2021-12-20] MEDS: Ascorbic Acid 500 MG TABLET PO (09:52)
[2021-12-20] MEDS: Pyridoxine HCl (Vitamin B6) 50 MG TABLET 100 MG PO (09:53)
[2021-12-20] MEDS: Docusate Sodium 100 MG/10 ML LIQUID 50 MG PO (09:53)
[2021-12-20 11:22] VITALS: BP 132/61; PULSE 74; RESP 18; TEMP 36.3; O2SAT 98
--- NOTE | 2021-12-20 11:53 | HO.PM.IMPN ---
Subjective Subjective Date of Service: 12/20/21 Interval History: the patient was seen and evaluated this morning Laying in bed, feels comfortable Denies any fever, chills or shortness of breath No reported other overnight events. Systemic review: No fever, chills or weakness No chest pain, palpitation No shortness of breath or coughing No abdominal pain, nausea or vomiting No urinary symptoms No any rash or wounds Physical Exam Vital Signs: Vital Signs: Last Vital Signs Temp 97.5 F 12/20/21 07:29 Pulse 59 12/20/21 07:29 Resp 18 12/20/21 07:29 BP 160/72 H 12/20/21 07:29 Pulse Ox 98 12/20/21 07:29 O2 Del Method 12/20/21 07:29 FiO2 97 12/10/21 11:24 BMI result Body Mass Index 20.5 Const: Other: Constitutional : Alert, not in distress Neck : Normal inspection, Supple Cardiovascular : RRR, no JVP, no lower extremity edema Respiratory : fair bilateral air entry, no crackles, wheezes or rhonchi Gastrointestinal: soft, lax, Normal bowel sounds, Non tender Skin : Warm, Dry Neurological : Alert & oriented x3, No focal deficit , CN 2-12 within normal Objective Data Active Medications Acetaminophen (Acetaminophen 325 Mg Tablet) 650 mg PO Q6H PRN PRN Reason: Pain, Mild (Pain Scale 1-3) Last Admin: 12/19/21 16:34 Dose: 650 mg Documented By: JESSIKA Ascorbic Acid (Ascorbic Acid 500 Mg Tablet) 500 mg PO DAILY [facility] Last Admin: 12/20/21 09:52 Dose: 500 mg Documented By: ESTER Aspirin (Aspirin 81 Mg Tab.Chew) 81 mg PO DAILY [facility] Last Admin: 12/20/21 09:52 Dose: 81 mg Documented By: ESTER Docusate Sodium (Docusate Sodium 100 Mg/10 Ml Liquid) 50 mg PO BID [facility] Last Admin: 12/20/21 09:53 Dose: 50 mg Documented By: ESTER Ferrous Sulfate (Ferrous Sulfate 324 Mg Tablet.) 324 mg PO DAILY [facility] Last Admin: 12/20/21 09:52 Dose: 324 mg Documented By: ESTER Folic Acid (Folic Acid 1 Mg Tablet) 1 mg PO DAILY [facility] Last Admin: 12/20/21 09:52 Dose: 1 mg Documented By: ESTER Heparin Sodium (Porcine) (Heparin Sodium,Porcine 5,000 Unit/Ml Vial) 5,000 unit SUBCUT Q12H [facility] Last Admin: 12/19/21 23:56 Dose: Not Given Documented By: ROBERT Non-Admin Reason: Patient Refused Metoprolol Tartrate (Metoprolol Tartrate 25 Mg Tablet) 25 mg PO BID [facility]; Protocol Last Admin: 12/20/21 09:52 Dose: 25 mg Documented By: ESTER Ondansetron HCl (Ondansetron Hcl 4 Mg/2 Ml Vial) 4 mg IVPUSH Q8H PRN PRN Reason: Nausea and Vomiting Pharmacy Consult (Consult Rx Perform Med Rec) 1 each MISCELLANE ONCE PRN PRN Reason: Consult order Pharmacy Consult (Consult Rx Perform Med Rec) 1 each MISCELLANE ONCE PRN PRN Reason: Consult order Pyridoxine HCl (Pyridoxine Hcl (Vitamin B6) 50 Mg Tablet) 100 mg PO DAILY [facility] Last Admin: 12/20/21 09:53 Dose: 100 mg Documented By: ESTER Sodium Chloride (0.9 % Sodium Chloride Flush 3 Ml Syringe) 3 ml IVFLUSH QSHIFT [facility] Last Admin: 12/20/21 09:52 Dose: 3 ml Documented By: ESTER Vitamin D (Cholecalciferol (Vitamin D3) 25 Mcg Tablet) 25 mcg PO DAILY [facility] Last Admin: 12/20/21 09:52 Dose: 25 mcg Documented By: ESTER Labs CBC & Chem 7: 12/15/21 09:58 12/15/21 09:58 Assessment and Plan (1) COVID-19 virus infection: Status: Acute Plan 76-year-old male with past medical history of COPD, CHF, CABG, who presents to the hospital with complaints of a syncopal episode, now on covid positive on placement screen asymptomatic covid has had 3 vaccines, 1st episode high risk due to frailty, lung cancer, PVD Finished 3 days of remdisivir On room air NSVT. Received Magnesium and potassium Continue metoprolol cardio appreciated, no further work up syncope. No further episodes likely secondary to orthostasis he had slightly elevated troponin with no delta, no chest pain, EKG shows no ST T-wave changes suggestive of ACS Seen by Cardiology, not likely cardiac event that led to syncope. No further workup indicated at this time orthostatic hypotension. Resolved likely secondary to dehydration, decreased PO intake improved s/p IVF able to ambulate without dizziness PT rec home with PT rhabdomyolysis. Resolved CPK trending down secondary to fall Acute COPD exacerbation. 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 Farias at [facility] - continue outpatient follow up CAD s/p CABG Continue aspirin and beta-patricia. Statin on hold due to rhabdomyolysis Pancytopenia likely r/t underlying cancer/treatment transfused 1 unit prbc - improved DVT prophylaxis Heparin subQ reason for continued hospitalization:weakness, needs respite bed, unavailable due to covid + pending safe discharge plan Quality Stroke Does the patient have a stroke diagnosis?: No VTE Prior VTE?: No VTE Risk Level:: Medical - moderate - high VTE Device Contraindication: Treatment Not Indicated VTE Drug Contraindication: N/A - Med Ordered
--- NOTE | 2021-12-20 15:59 | MHC.CM.PN ---
Patient was planned for discharge to [facility] today. They do not have a bed available. Spoke with Arya from the al. Requested assist with respite referrals. [facility] Names of [facility] contracted [facility]. The facility will accept the patient 12/23/21. If we test for covid and he is negative, he will be accepted tomorrow. A request was made for a rapid covid. [facility]
[2021-12-20 16:00] VITALS: BP 167/78; PULSE 68; RESP 16; TEMP 36.2; O2SAT 100
[2021-12-20] MEDS: Acetaminophen 325 MG TABLET 650 MG PO (19:12)
[2021-12-20 20:00] VITALS: BP 134/65; PULSE 68; RESP 16; TEMP 36.1; O2SAT 99
[2021-12-20 23:42] VITALS: BP 175/81; PULSE 81; RESP 16; TEMP 36.5; O2SAT 100
[2021-12-21] VITALS (7 sets, daily range): BP systolic 113–153; BP diastolic 58–79; PULSE 64–76; RESP 16–18; TEMP 36.1–36.8; O2SAT 98–100
[2021-12-21] MEDS: Aspirin 81 MG TAB.CHEW PO (09:06)
[2021-12-21] MEDS: Metoprolol Tartrate 25 MG TABLET PO ×2 (09:06→21:51)
[2021-12-21] MEDS: Pyridoxine HCl (Vitamin B6) 50 MG TABLET 100 MG PO (09:07)
[2021-12-21] MEDS: Ascorbic Acid 500 MG TABLET PO (09:07)
[2021-12-21] MEDS: Folic Acid 1 MG TABLET PO (09:07)
[2021-12-21] MEDS: Cholecalciferol (Vitamin D3) 25 MCG TABLET PO (09:07)
[2021-12-21] MEDS: Ferrous Sulfate 324 MG TABLET.DR PO (09:07)
[2021-12-21 09:47] LABS: COVID-19 Test Positive (Negative)
--- NOTE | 2021-12-21 10:01 | P.DS_ITS ---
DS: Providers Provider Date of admission: 12/02/21 23:52 Primary care physician: JIMMY Weeks Consults: 12/03/21 10:35 Consult to Cardiology Routine Consulting Provider: Ramon Pérez Reason for consultation: syncope Has provider been notified: No DS: Diagnosis Discharge Diagnosis (1) COVID-19 virus infection: Status: Acute (2) NSVT (nonsustained ventricular tachycardia): Status: Acute (3) Syncope: Status: Acute (4) COPD with acute exacerbation: Status: Acute (5) Rhabdomyolysis: Status: Acute (6) Fall: Status: Acute (7) Weakness: Status: Acute (8) Orthostatic hypotension: Status: Acute DS: Summary Hospital Course Hospital Course: from initial hpi: Chief Complaint: syncope ?76-year-old male with past medical history of lung cancer status post lobectomy, currently on chemoradiation per patient, history of CABG, anemia, history of right carotid enterectomy HTN, who presents the hospital after his neighbor found him on the floor.? Patient's family were concerned about him, therefore had not heard from him for 2 days, they had called the neighbor and the neighbor did a well check on him and found him on the floor.? According to the patient he syncopized, fell to the floor without his trauma, and was not able to get up.? Patient reports that he was on the floor for close to 24 hours.? He reports that he was feeling dizzy but had no palpitations or chest pain prior to passing out, he reports that he was told not to eat or drink when I asked him to explain who told him that he states you guys ,? he denies any chest pain,? but reports dyspnea worse with exertion, he also complaining of cough and sputum production, denies any fever or chills, no abdominal pain nausea or vomiting, no diarrhea constipation, no urinary symptoms.? No lower extremity edema on arrival to the ED patient hemodynamically stable with a heart rate in the 110s ?labs are significant for WBC count of 2.3, hemoglobin of 8.8, hematocrit 25.7, BUN of 28, creatinine of 1.27 which is close to his baseline, C PK of 2593, troponin of 63.2 then increase to 78.3,? BNP of 916, UA negative patient on it went multiple imaging including chest CT angiogram, that showed limited assessment for detecting smaller segmental pulmonary emboli, no central or large segmental pulmonary embolus identified,? no airspace? consolidation effusion or pneumothorax ?no acute intra-abdominal process, patient underwent orthostatic vitals which were grossly positive ?patient started on IV fluids and will be admitted for further management hospital course: patient was admitted for syncope, likely due to orthostatic hypotension from dehydration and poor p.o. intake due to lung cancer with recent chemotherapy complicated by pancytopenia. Patient was given IV hydration which was then complicated by hyperchloremic metabolic acidosis which resolved after discontinuing IV fluids. His ortho status improved and he was able to ambulate well independently with physical therapy. Patient did have mild rhabdomyolysis on admission and resolved with IV hydration. Course was complicated by nonsustained V-tach. He was seen by Cardiology who recommended restarting low- dose metoprolol tartrate 25 mg b.i.d., his home dose of Toprol 100 mg had been held for hypotension. his hypo magnesemia and hypokalemia were corrected. Course was also complicated by COPD with acute decompensation. It improved with steroids and bronchodilators. He was also noted to have elevated troponin without chest pain, this was felt to be due to rhabdomyolysis and Cardiology recommended no further workup. For patient's history of coronary disease status post CABG is continue on aspirin and beta-patricia, he will resume statin on discharge. For patient's pancytopenia due to recent chemotherapy he was transfuse 1 unit of PRBC and hemoglobin improved appropriately. Patient is feeling better will be discharged to respite bed. He was found to have COVID infection. Monitored in the hospital by receiving remdesivir for 3 days. Did not require any other active treatment as he did not develop any respiratory symptoms. continue metoprolol as prescribed To follow up with Cardiology as outpatient Time Spent with Patient Time attestation: Total time spent providing and/or coordinating discharge services: Physical Exam Vital Signs: Vital Signs: Last Vital Signs Temp 98.2 F 12/21/21 07:33 Pulse 68 12/21/21 07:33 Resp 18 12/21/21 07:33 BP 149/75 H 12/21/21 07:33 Pulse Ox 100 12/21/21 07:33 O2 Del Method 12/21/21 07:33 FiO2 97 12/10/21 11:24 BMI result Body Mass Index 20.5 Const: Other: Constitutional : Alert, not in distress Neck : Normal inspection, Supple Cardiovascular : RRR, no JVP, no lower extremity edema Respiratory : fair bilateral air entry, no crackles, wheezes or rhonchi Gastrointestinal: soft, lax, Normal bowel sounds, Non tender Skin : Warm, Dry Neurological : Alert & oriented x3, No focal deficit , CN 2-12 within normal DS: Data Data Completed and Pending Completed studies during hospitalization [Text1]: Procedures Dilation of Bilateral Ureters with Intraluminal Device, Via Natural or Artificial Opening Endoscopic (09/27/20) Extirpation of Matter from Left Ureter, Via Natural or Artificial Opening Endoscopic (09/27/20) Fluoroscopy of Left Kidney, Ureter and Bladder (09/27/20) Labs on day of discharge: Laboratory Results - last 24 hr 12/21/21 09:10 COVID-19 (TANISHA) Positive A COVID-19 Clin Com See Note Imaging Chest x-ray: Radiologist's impression: ITS Impressions Chest X-Ray 12/02/21 16:45 IMPRESSION: Bronchial wall thickening with interstitial prominence which may be chronic, in the setting of known severe emphysema. Similar appearance to prior imaging. No new consolidation. Cervical Spine CT 12/02/21 18:25 IMPRESSION: 1. No acute intracranial finding. Chronic volume loss with small vessel ischemic change. 2. No fracture or malalignment of the cervical spine. Mild to moderate degenerative changes throughout. Head CT 12/02/21 18:25 IMPRESSION: 1. No acute intracranial finding. Chronic volume loss with small vessel ischemic change. 2. No fracture or malalignment of the cervical spine. Mild to moderate degenerative changes throughout. Abdomen/Pelvis CT 12/02/21 18:32 IMPRESSION: 1. Limited assessment for detecting smaller segmental pulmonary emboli. No central or large segmental pulmonary embolus identified within the limitations of this exam. 2. Status post right upper lobectomy with extensive emphysema. Mild bibasilar atelectasis. No airspace consolidation, effusions, or pneumothorax. 3. No acute intra-abdominal process identified. 4. No acute fracture. 5. Multiple additional chronic ancillary findings, as described. VTE: Negative with limitation, as above. Chest CTA 12/02/21 18:32 IMPRESSION: 1. Limited assessment for detecting smaller segmental pulmonary emboli. No central or large segmental pulmonary embolus identified within the limitations of this exam. 2. Status post right upper lobectomy with extensive emphysema. Mild bibasilar atelectasis. No airspace consolidation, effusions, or pneumothorax. 3. No acute intra-abdominal process identified. 4. No acute fracture. 5. Multiple additional chronic ancillary findings, as described. VTE: Negative with limitation, as above. Chest X-Ray 12/07/21 10:45 IMPRESSION: Chronic interstitial changes/COPD without acute cardiopulmonary process. Discharge Plan Discharge Patient Disposition: [facility] Discharge Diagnosis: syncope Referrals: [facility] [Other] - 1 Week Arnulfo Angeles PA [Primary Care Provider] - 1 Week Discharge Medications: New metoprolol tartrate 25 mg Tablet 25 mg PO BID Qty: 60 0RF Protocol: Hold for SBP/HR < HOLD for SBP < : 90 HOLD for HR < : 60 Continued allopurinol 100 mg tablet 100 mg PO DAILY 90 Days Qty: 90 1RF pyridoxine (vitamin B6) 100 mg tablet 100 mg PO DAILY 90 Days Qty: 90 0RF atorvastatin 80 mg tablet 80 mg PO BEDTIME 90 Days Qty: 90 3RF aspirin 81 mg Tablet,Chewable 81 mg PO DAILY albuterol sulfate 90 mcg/actuation HFA aerosol inhaler 2 puff inhalation Q4-6H PRN (Reason: wheezing) docusate sodium 50 mg Capsule 50 mg PO BID clobetasol 0.05 % Ointment 1 appl TOPICAL BID PRN (Reason: RASH ON ARMS AND LEGS) folic acid 1 mg tablet 1 mg PO DAILY ascorbate calcium (vitamin C) 500 mg tablet 500 mg PO DAILY ferrous sulfate 324 mg (65 mg iron) tablet,delayed release (DR/EC) 324 mg PO DAILY cholecalciferol (vitamin D3) 25 mcg (1,000 unit) capsule 25 mcg PO DAILY Discontinued metoprolol succinate 100 mg tablet extended release 24 hr 100 mg PO DAILY Qty: 90 3RF amlodipine 5 mg tablet 5 mg PO DAILY Qty: 90 1RF Diet: Advance to usual diet Activity on Discharge: As tolerated Stand Alone Forms: Patient Portal Discharge page Care Plan Goals: recovery Health Concerns: lung cancer, weakness Plan of Treatment: changed toprol to lopressor, follow up with oncology Assessment: You were admitted to the hospital for evaluation of syncope. Believed to be a result of drop in your blood pressure. Evaluated by Cardiology who recommended no further intervention as symptoms resolved after receiving IV fluids. Evaluated by Physical therapy who recommended home therapy. Noticed to have positive COVID infection. Treated with remdesivir for 3 days. Did not require any other active treatment. Metoprolol was started for evidence of abnormal cardiac rhythm. continue metoprolol as prescribed To follow up with Cardiology as outpatient
--- NOTE | 2021-12-21 10:38 | P.PNIM_ITS ---
Subjective Subjective Date of Service: 12/21/21 Interval History: the patient was seen and evaluated this morning Laying in bed, feels comfortable Still testing positive for COVID Denies any fever, chills or shortness of breath No reported other overnight events. Systemic review: No fever, chills or weakness No chest pain, palpitation No shortness of breath or coughing No abdominal pain, nausea or vomiting No urinary symptoms No any rash or wounds Physical Exam Vital Signs: Vital Signs: Last Vital Signs Temp 98.2 F 12/21/21 07:33 Pulse 68 12/21/21 07:33 Resp 18 12/21/21 07:33 BP 149/75 H 12/21/21 07:33 Pulse Ox 100 12/21/21 07:33 O2 Del Method 12/21/21 07:33 FiO2 97 12/10/21 11:24 BMI result Body Mass Index 20.5 Const: Other: Constitutional : Alert, not in distress Neck : Normal inspection, Supple Cardiovascular : RRR, no JVP, no lower extremity edema Respiratory : fair bilateral air entry, no crackles, wheezes or rhonchi Gastrointestinal: soft, lax, Normal bowel sounds, Non tender Skin : Warm, Dry Neurological : Alert & oriented x3, No focal deficit , CN 2-12 within normal Objective Data Active Medications Acetaminophen (Acetaminophen 325 Mg Tablet) 650 mg PO Q6H PRN PRN Reason: Pain, Mild (Pain Scale 1-3) Last Admin: 12/20/21 19:12 Dose: 650 mg Documented By: ROBERT Ascorbic Acid (Ascorbic Acid 500 Mg Tablet) 500 mg PO DAILY [facility] Last Admin: 12/21/21 09:07 Dose: 500 mg Documented By: ESTER Aspirin (Aspirin 81 Mg Tab.Chew) 81 mg PO DAILY [facility] Last Admin: 12/21/21 09:06 Dose: 81 mg Documented By: ESTER Docusate Sodium (Docusate Sodium 100 Mg/10 Ml Liquid) 50 mg PO BID [facility] Last Admin: 12/21/21 09:07 Dose: Not Given Documented By: ESTER Non-Admin Reason: Patient Refused Ferrous Sulfate (Ferrous Sulfate 324 Mg Tablet.) 324 mg PO DAILY [facility] Last Admin: 12/21/21 09:07 Dose: 324 mg Documented By: ESTER Folic Acid (Folic Acid 1 Mg Tablet) 1 mg PO DAILY [facility] Last Admin: 12/21/21 09:07 Dose: 1 mg Documented By: ESTER Heparin Sodium (Porcine) (Heparin Sodium,Porcine 5,000 Unit/Ml Vial) 5,000 unit SUBCUT Q12H [facility] Last Admin: 12/21/21 00:53 Dose: Not Given Documented By: ROBERT Non-Admin Reason: Patient Refused Metoprolol Tartrate (Metoprolol Tartrate 25 Mg Tablet) 25 mg PO BID [facility]; Protocol Last Admin: 12/21/21 09:06 Dose: 25 mg Documented By: ESTER Ondansetron HCl (Ondansetron Hcl 4 Mg/2 Ml Vial) 4 mg IVPUSH Q8H PRN PRN Reason: Nausea and Vomiting Pharmacy Consult (Consult Rx Perform Med Rec) 1 each MISCELLANE ONCE PRN PRN Reason: Consult order Pharmacy Consult (Consult Rx Perform Med Rec) 1 each MISCELLANE ONCE PRN PRN Reason: Consult order Pyridoxine HCl (Pyridoxine Hcl (Vitamin B6) 50 Mg Tablet) 100 mg PO DAILY [facility] Last Admin: 12/21/21 09:07 Dose: 100 mg Documented By: ESTER Sodium Chloride (0.9 % Sodium Chloride Flush 3 Ml Syringe) 3 ml IVFLUSH QSHIFT [facility] Last Admin: 12/21/21 09:06 Dose: Not Given Documented By: ESTER Non-Admin Reason: No Access Vitamin D (Cholecalciferol (Vitamin D3) 25 Mcg Tablet) 25 mcg PO DAILY [facility] Last Admin: 12/21/21 09:07 Dose: 25 mcg Documented By: ESTER Labs CBC & Chem 7: 12/15/21 09:58 12/15/21 09:58 Labs: Laboratory Results - last 24 hr 12/21/21 09:10 COVID-19 (TANISHA) Positive A COVID-19 Clin Com See Note Assessment and Plan (1) COVID-19 virus infection: Status: Acute Plan 76-year-old male with past medical history of COPD, CHF, CABG, who presents to the hospital with complaints of a syncopal episode, now on covid positive on placement screen asymptomatic covid has had 3 vaccines, 1st episode high risk due to frailty, lung cancer, PVD Finished 3 days of remdisivir On room air NSVT. Received Magnesium and potassium Continue metoprolol cardio appreciated, no further work up syncope. No further episodes likely secondary to orthostasis he had slightly elevated troponin with no delta, no chest pain, EKG shows no ST T-wave changes suggestive of ACS Seen by Cardiology, not likely cardiac event that led to syncope. No further workup indicated at this time orthostatic hypotension. Resolved likely secondary to dehydration, decreased PO intake improved s/p IVF able to ambulate without dizziness PT rec home with PT rhabdomyolysis. Resolved CPK trending down secondary to fall Acute COPD exacerbation. 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 Farias at [facility] - continue outpatient follow up CAD s/p CABG Continue aspirin and beta-patricia. Statin on hold due to rhabdomyolysis Pancytopenia likely r/t underlying cancer/treatment transfused 1 unit prbc - improved DVT prophylaxis Heparin subQ reason for continued hospitalization:weakness, needs respite bed, unavailable due to covid + pending safe discharge plan Quality Stroke Does the patient have a stroke diagnosis?: No VTE Prior VTE?: No VTE Risk Level:: Medical - moderate - high VTE Device Contraindication: Treatment Not Indicated VTE Drug Contraindication: N/A - Med Ordered
[2021-12-21] MEDS: 0.9 % Sodium Chloride Flush 3 ML SYRINGE IVFLUSH (22:20)
[2021-12-22] VITALS (7 sets, daily range): BP systolic 98–155; BP diastolic 50–73; PULSE 66–86; RESP 16–20; TEMP 36.4–36.9; O2SAT 97–100
[2021-12-22] MEDS: Pyridoxine HCl (Vitamin B6) 50 MG TABLET 100 MG PO (09:36)
[2021-12-22] MEDS: Aspirin 81 MG TAB.CHEW PO (09:36)
[2021-12-22] MEDS: Metoprolol Tartrate 25 MG TABLET PO ×2 (09:36→22:08)
[2021-12-22] MEDS: Folic Acid 1 MG TABLET PO (09:36)
[2021-12-22] MEDS: Cholecalciferol (Vitamin D3) 25 MCG TABLET PO (09:36)
[2021-12-22] MEDS: Ferrous Sulfate 324 MG TABLET.DR PO (09:37)
[2021-12-22] MEDS: Ascorbic Acid 500 MG TABLET PO (09:37)
[2021-12-22] MEDS: Acetaminophen 325 MG TABLET 650 MG PO (09:37)
--- NOTE | 2021-12-22 12:07 | P.PNIM_ITS ---
Subjective Subjective Date of Service: 12/22/21 Interval History: cc: syncope interval history:feels well Cardiovascular Cardiovascular: Reports no additional cardiovascular complaints Respiratory Respiratory: Reports no additional respiratory complaints Physical Exam Vital Signs: Vital Signs: Last Vital Signs Temp 97.9 F 12/22/21 11:25 Pulse 76 12/22/21 11:25 Resp 20 12/22/21 11:25 BP 98/54 L 12/22/21 11:25 Pulse Ox 98 12/22/21 11:25 O2 Del Method 12/22/21 11:25 FiO2 97 12/10/21 11:24 BMI result Body Mass Index 20.5 General: AO X 3, no acute distress Resp: CTA bilateral, no accessory muscles used CVS: S1,S2,RRR GI: soft, non tender, non distended Neuro: motor grossly intact, alert Psych: appropriate affect, appropriate insight Objective Data Active Medications Acetaminophen (Acetaminophen 325 Mg Tablet) 650 mg PO Q6H PRN PRN Reason: Pain, Mild (Pain Scale 1-3) Last Admin: 12/22/21 09:37 Dose: 650 mg Documented By: CORWIN Ascorbic Acid (Ascorbic Acid 500 Mg Tablet) 500 mg PO DAILY [facility] Last Admin: 12/22/21 09:37 Dose: 500 mg Documented By: CORWIN Aspirin (Aspirin 81 Mg Tab.Chew) 81 mg PO DAILY [facility] Last Admin: 12/22/21 09:36 Dose: 81 mg Documented By: CORWIN Docusate Sodium (Docusate Sodium 100 Mg/10 Ml Liquid) 50 mg PO BID [facility] Last Admin: 12/22/21 09:37 Dose: Not Given Documented By: CORWIN Non-Admin Reason: Patient Refused Ferrous Sulfate (Ferrous Sulfate 324 Mg Tablet.) 324 mg PO DAILY [facility] Last Admin: 12/22/21 09:37 Dose: 324 mg Documented By: CORWIN Folic Acid (Folic Acid 1 Mg Tablet) 1 mg PO DAILY [facility] Last Admin: 12/22/21 09:36 Dose: 1 mg Documented By: CORWIN Heparin Sodium (Porcine) (Heparin Sodium,Porcine 5,000 Unit/Ml Vial) 5,000 unit SUBCUT Q12H [facility] Last Admin: 12/22/21 09:31 Dose: Not Given Documented By: CORWIN Non-Admin Reason: Patient Refused Metoprolol Tartrate (Metoprolol Tartrate 25 Mg Tablet) 25 mg PO BID [facility]; Protocol Last Admin: 12/22/21 09:36 Dose: 25 mg Documented By: CORWIN Ondansetron HCl (Ondansetron Hcl 4 Mg/2 Ml Vial) 4 mg IVPUSH Q8H PRN PRN Reason: Nausea and Vomiting Pharmacy Consult (Consult Rx Perform Med Rec) 1 each MISCELLANE ONCE PRN PRN Reason: Consult order Pharmacy Consult (Consult Rx Perform Med Rec) 1 each MISCELLANE ONCE PRN PRN Reason: Consult order Pyridoxine HCl (Pyridoxine Hcl (Vitamin B6) 50 Mg Tablet) 100 mg PO DAILY [facility] Last Admin: 12/22/21 09:36 Dose: 100 mg Documented By: CORWIN Sodium Chloride (0.9 % Sodium Chloride Flush 3 Ml Syringe) 3 ml IVFLUSH QSHIFT [facility] Last Admin: 12/22/21 11:33 Dose: Not Given Documented By: CORWIN Non-Admin Reason: No Access Vitamin D (Cholecalciferol (Vitamin D3) 25 Mcg Tablet) 25 mcg PO DAILY [facility] Last Admin: 12/22/21 09:36 Dose: 25 mcg Documented By: CORWIN Labs CBC & Chem 7: 12/15/21 09:58 12/15/21 09:58 Assessment and Plan (1) COVID-19 virus infection: Status: Acute Plan 76-year-old male with past medical history of COPD, CHF, CABG, who presents to the hospital with complaints of a syncopal episode, now on covid positive on placement screen asymptomatic covid has had 3 vaccines, 1st episode high risk due to frailty, lung cancer, PVD Finished 3 days of remdisivir On room air NSVT. Received Magnesium and potassium Continue metoprolol cardio appreciated, no further work up syncope. No further episodes likely secondary to orthostasis he had slightly elevated troponin with no delta, no chest pain, EKG shows no ST T-wave changes suggestive of ACS Seen by Cardiology, not likely cardiac event that led to syncope. No further workup indicated at this time orthostatic hypotension. Resolved likely secondary to dehydration, decreased PO intake improved s/p IVF able to ambulate without dizziness PT rec home with PT rhabdomyolysis. Resolved CPK trending down secondary to fall Acute COPD exacerbation. 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 Farias at [facility] - continue outpatient follow up CAD s/p CABG Continue aspirin and beta-patricia. Statin on hold due to rhabdomyolysis Pancytopenia likely r/t underlying cancer/treatment transfused 1 unit prbc - improved DVT prophylaxis Heparin subQ reason for continued hospitalization:weakness, needs respite bed, unavailable due to covid + pending safe discharge plan Quality Stroke Does the patient have a stroke diagnosis?: No VTE Prior VTE?: No VTE Risk Level:: Medical - moderate - high VTE Device Contraindication: Treatment Not Indicated VTE Drug Contraindication: N/A - Med Ordered
--- NOTE | 2021-12-22 16:39 | MHC.CM.PN ---
Male 76 DX Covid+ will discharge tomorrow to [facility] He is covid recovered and ready to transfer 12/23/21.
[2021-12-23 04:00] VITALS: BP 154/66; PULSE 71; RESP 15; TEMP 36.2; O2SAT 97
--- NOTE | 2021-12-23 07:27 | PM.DS ---
DS: Providers Provider Date of Service: 12/23/21 Date of admission: 12/02/21 23:52 Primary care physician: JIMMY Weeks Consults: 12/03/21 10:35 Consult to Cardiology Routine Consulting Provider: Ramon Pérez Reason for consultation: syncope Has provider been notified: No DS: Diagnosis Discharge Diagnosis (1) COVID-19 virus infection: Status: Acute DS: Summary Hospital Course Hospital Course: from initial hpi: Chief Complaint: syncope ?76-year-old male with past medical history of lung cancer status post lobectomy, currently on chemoradiation per patient, history of CABG, anemia, history of right carotid enterectomy HTN, who presents the hospital after his neighbor found him on the floor.? Patient's family were concerned about him, therefore had not heard from him for 2 days, they had called the neighbor and the neighbor did a well check on him and found him on the floor.? According to the patient he syncopized, fell to the floor without his trauma, and was not able to get up.? Patient reports that he was on the floor for close to 24 hours.? He reports that he was feeling dizzy but had no palpitations or chest pain prior to passing out, he reports that he was told not to eat or drink when I asked him to explain who told him that he states you guys ,? he denies any chest pain,? but reports dyspnea worse with exertion, he also complaining of cough and sputum production, denies any fever or chills, no abdominal pain nausea or vomiting, no diarrhea constipation, no urinary symptoms.? No lower extremity edema on arrival to the ED patient hemodynamically stable with a heart rate in the 110s ?labs are significant for WBC count of 2.3, hemoglobin of 8.8, hematocrit 25.7, BUN of 28, creatinine of 1.27 which is close to his baseline, C PK of 2593, troponin of 63.2 then increase to 78.3,? BNP of 916, UA negative patient on it went multiple imaging including chest CT angiogram, that showed limited assessment for detecting smaller segmental pulmonary emboli, no central or large segmental pulmonary embolus identified,? no airspace? consolidation effusion or pneumothorax ?no acute intra-abdominal process, patient underwent orthostatic vitals which were grossly positive ?patient started on IV fluids and will be admitted for further management hospital course: patient was admitted for syncope, likely due to orthostatic hypotension from dehydration and poor p.o. intake due to lung cancer with recent chemotherapy complicated by pancytopenia. Patient was given IV hydration which was then complicated by hyperchloremic metabolic acidosis which resolved after discontinuing IV fluids. His ortho status improved and he was able to ambulate well independently with physical therapy. Patient did have mild rhabdomyolysis on admission and resolved with IV hydration. Course was complicated by nonsustained V-tach. He was seen by Cardiology who recommended restarting low-dose metoprolol tartrate 25 mg b.i.d., his home dose of Toprol 100 mg had been held for hypotension. his hypo magnesemia and hypokalemia were corrected. Course was also complicated by COPD with acute decompensation. It improved with steroids and bronchodilators. He was also noted to have elevated troponin without chest pain, this was felt to be due to rhabdomyolysis and Cardiology recommended no further workup. For patient's history of coronary disease status post CABG he will continue on aspirin and beta-patricia, he will resume statin on discharge. For patient's pancytopenia due to recent chemotherapy he was transfuse 1 unit of PRBC and hemoglobin improved appropriately. Patient is feeling better will be discharged to respite bed. He was found to have COVID infection. Monitored in the hospital by receiving remdesivir for 3 days. Did not require any other active treatment as he did not develop any respiratory symptoms. continue metoprolol as prescribed To follow up with Cardiology as outpatient Time Spent with Patient Time attestation: Total time spent providing and/or coordinating discharge services: Discharge coordination time: Greater than 30 minutes Quality: Safe Use of Opioids Does Pt have an Active Cancer Diagnosis on the Problem List?: Yes Opioid Measure Date for [facility] Report: 11/23/21 Opioid Measure Time for [facility] Report: 07:30 Quality: Stroke Does the patient have a stroke diagnosis?: No Physical Exam Vital Signs: Vital Signs: Last Vital Signs Temp 97.2 F 12/23/21 04:00 Pulse 71 12/23/21 04:00 Resp 12/23/21 04:00 BP 154/66 H 12/23/21 04:00 Pulse Ox 97 12/23/21 04:00 O2 Del Method 12/23/21 04:00 FiO2 72 12/22/21 19:15 BMI result Body Mass Index 20.5 DS: Data Data Completed and Pending Completed studies during hospitalization [Text1]: Procedures Dilation of Bilateral Ureters with Intraluminal Device, Via Natural or Artificial Opening Endoscopic (09/27/20) Extirpation of Matter from Left Ureter, Via Natural or Artificial Opening Endoscopic (09/27/20) Fluoroscopy of Left Kidney, Ureter and Bladder (09/27/20) Discharge Plan Discharge Patient Disposition: Xfer SNF Discharge Diagnosis: syncope Referrals: [facility] [Other] - 1 Week Arnulfo Angeles PA [Primary Care Provider] - 1 Week Discharge Medications: New metoprolol tartrate 25 mg Tablet 25 mg PO BID Qty: 60 0RF Protocol: Hold for SBP/HR < HOLD for SBP < : 90 HOLD for HR < : 60 Continued allopurinol 100 mg tablet 100 mg PO DAILY 90 Days Qty: 90 1RF pyridoxine (vitamin B6) 100 mg tablet 100 mg PO DAILY 90 Days Qty: 90 0RF atorvastatin 80 mg tablet 80 mg PO BEDTIME 90 Days Qty: 90 3RF aspirin 81 mg Tablet,Chewable 81 mg PO DAILY albuterol sulfate 90 mcg/actuation HFA aerosol inhaler 2 puff inhalation Q4-6H PRN (Reason: wheezing) docusate sodium 50 mg Capsule 50 mg PO BID clobetasol 0.05 % Ointment 1 appl TOPICAL BID PRN (Reason: RASH ON ARMS AND LEGS) folic acid 1 mg tablet 1 mg PO DAILY ascorbate calcium (vitamin C) 500 mg tablet 500 mg PO DAILY ferrous sulfate 324 mg (65 mg iron) tablet,delayed release (DR/EC) 324 mg PO DAILY cholecalciferol (vitamin D3) 25 mcg (1,000 unit) capsule 25 mcg PO DAILY Discontinued metoprolol succinate 100 mg tablet extended release 24 hr 100 mg PO DAILY Qty: 90 3RF amlodipine 5 mg tablet 5 mg PO DAILY Qty: 90 1RF Discharge Orders: Discharge Order (Routine); Ordered 12/23/21 Ordered By: Ron Mooney Diet: Advance to usual diet Activity on Discharge: As tolerated Stand Alone Forms: Patient Portal Discharge page Care Plan Goals: recovery Health Concerns: lung cancer, weakness Plan of Treatment: changed toprol to lopressor, follow up with oncology Assessment: You were admitted to the hospital for evaluation of syncope. Believed to be a result of drop in your blood pressure. Evaluated by Cardiology who recommended no further intervention as symptoms resolved after receiving IV fluids. Evaluated by Physical therapy who recommended home therapy. Noticed to have positive COVID infection. Treated with remdesivir for 3 days. Did not require any other active treatment. Metoprolol was started for evidence of abnormal cardiac rhythm. continue metoprolol as prescribed To follow up with Cardiology as outpatient
[2021-12-23 07:38] VITALS: BP 132/62; PULSE 70; RESP 20; TEMP 36.6; O2SAT 99
[2021-12-23] MEDS: Cholecalciferol (Vitamin D3) 25 MCG TABLET PO (08:56)
[2021-12-23] MEDS: Folic Acid 1 MG TABLET PO (08:56)
[2021-12-23] MEDS: Ferrous Sulfate 324 MG TABLET.DR PO (08:56)
[2021-12-23] MEDS: Ascorbic Acid 500 MG TABLET PO (08:56)
[2021-12-23] MEDS: Aspirin 81 MG TAB.CHEW PO (08:57)
[2021-12-23] MEDS: Metoprolol Tartrate 25 MG TABLET PO (08:57)
[2021-12-23] MEDS: Pyridoxine HCl (Vitamin B6) 50 MG TABLET 100 MG PO (08:57)
--- NOTE | 2021-12-23 11:00 | PC.NURSE ---
Pt A+Ox3, discharge teaching preformed with teach back. Pt stated all questions answered. Peripheral IVs removed. Tele monitor removed. Pt belongings returned to pt, discharge paperwork in hand. [facility] Pt transported via wheelchair.
== END 2021-12-23 10:55 | disposition skilled nursing facility (03) | DRG 190 ==
LOC: HO.ED 23:55 → HO.EDOVER 23:58 → HO.IMC 12-04 15:29
PROVIDERS: Physician Assistant; Physician Assistant Medical; Student in an Organized Health Care Education/Training Program; Admitting Provider Internal Medicine; Emergency Provider Emergency Medicine; PCP Physician Assistant; Visit Provider Internal Medicine
DX: J44.1 Chronic obstructive pulmonary disease with (acute) exacerbation (principal); D61.810 Antineoplastic chemotherapy induced pancytopenia; U07.1 COVID-19; C34.11 Malignant neoplasm of upper lobe, right bronchus or lung; M62.82 Rhabdomyolysis; D84.821 Immunodeficiency due to drugs; I47.1 Supraventricular tachycardia; E87.2 Acidosis; I50.32 Chronic diastolic (congestive) heart failure; I11.0 Hypertensive heart disease with heart failure; E86.0 Dehydration; T45.1X5A Adverse effect of antineoplastic and immunosuppressive drugs, initial encounter; F17.210 Nicotine dependence, cigarettes, uncomplicated; Z71.6 Tobacco abuse counseling; R62.7 Adult failure to thrive; Z68.20 Body mass index [BMI] 20.0-20.9, adult; I25.10 Atherosclerotic heart disease of native coronary artery without angina pectoris; Z95.1 Presence of aortocoronary bypass graft; I95.1 Orthostatic hypotension; Z79.82 Long term (current) use of aspirin; Z79.899 Other long term (current) drug therapy
CPT/HCPCS: 36415; 70450; 71045; 71275; 72125; 74177; 80048; 80053; 81001; 82550; 82607; 82746; 83735; 83880; 84484; 85007; 85025; 85027; 85379; 86850; 86900; 86901; 86923; 87635; 93005; 93306; 96361; 96374; 97110; 97116; 97162; 97166; 97530; 99285; J0248; J1940; J2920; J3475; P9016; Q9967

== ENCOUNTER → 2022-01-31 12:07 | Outpatient (BNVA) | payer OTHER, SELFPAY | PROVIDERS: PCP Physician Assistant; Visit Provider Internal Medicine Cardiovascular Disease | DX: I25.10 Atherosclerotic heart disease of native coronary artery without angina pectoris (principal); I10 Essential (primary) hypertension; Z79.82 Long term (current) use of aspirin; Z79.899 Other long term (current) drug therapy | CPT/HCPCS: 99212 ==

== ENCOUNTER 2022-03-07 07:36 | Outpatient (REF) | payer OTHER, SELFPAY ==
--- NOTE | ~2022-03-07 | CT_ITS ---
EXAMINATION: CT CHEST WITHOUT CONTRAST CLINICAL INFORMATION: Malignant neoplasm of bronchus. COMPARISON: CT chest 12/02/2021. TECHNIQUE: Multidetector volumetric CT imaging of the chest was done. Axial MIP volume rendering provided. Sagittal and coronal reformatted images were obtained. This CT examination was performed using dose optimization techniques as appropriate, variously including the following: *Automated exposure control *Adjustment of mA and/or kV according to patient size (this includes techniques or standardized protocols for targeted exams where dose is matched to indication/reason for exam; i.e. 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 LUNGS: There are paraseptal emphysematous changes of both lungs with bullous changes in right upper lobe. There is a 1 mm and a 3 mm calcified nodule left upper lobe image 12/4, 5 mm noncalcified nodule medially in right upper lobe axial and 5 mm noncalcified nodule left lower lobe superior segment axial image 23/4. There is no acute consolidation, mass. Prominent fine reticular interstitial markings are seen throughout both lungs. MEDIASTINUM: The thyroid lobes are somewhat symmetrical and unremarkable. The central trachea and the bronchi are widely patent. Heart size and the great vessels are normal caliber. Moderate coronary artery calcifications are seen without pericardial effusion. Small shotty lymph nodes are seen in the mediastinum. CORONARY ARTERY CALCIFICATION: Moderate coronary artery calcifications are present. PLEURA: Minimal thickening of right posterior pleura is noted. No evidence of effusion. AXILLA: Small shotty lymph nodes are seen in the axilla. Mild fatty stranding is seen in left axilla. UPPER ABDOMEN: There is a 3 mm nonobstructive calculi upper pole calyx left kidney. Liver, spleen and left adrenal gland is unremarkable. Focal nodule is seen in the right adrenal gland. OSSEOUS STRUCTURES: There is moderate spondylosis throughout dorsal spine. No aggressive lytic or sclerotic process seen. CT/CT chest wo IV con IMPRESSION: Paraseptal emphysema with bullous changes in right upper lobe. Calcified and noncalcified nodules in both upper lobes and lower lobes. Recommend follow-up. Grossly unchanged since the previous study. Reactive lymph nodes in the mediastinum. Fleischner guidelines were followed.
== END 2022-03-07 07:37 | disposition home or self-care (01) ==
LOC: HO.CT 07:36
PROVIDERS: PCP Internal Medicine; Referring Provider Physician Assistant; Visit Provider Surgery
DX: C34.90 Malignant neoplasm of unspecified part of unspecified bronchus or lung (principal)
CPT/HCPCS: 71250

== ENCOUNTER → 2022-03-17 08:50 | Outpatient (BNVA) | payer OTHER, SELFPAY | PROVIDERS: PCP Physician Assistant; Visit Provider Internal Medicine Pulmonary Disease | DX: J44.9 Chronic obstructive pulmonary disease, unspecified (principal) | CPT/HCPCS: 99212 ==

== ENCOUNTER → 2022-03-25 09:00 | Outpatient (BNVA) | payer OTHER, SELFPAY | PROVIDERS: PCP Physician Assistant; Visit Provider Surgery | DX: C34.90 Malignant neoplasm of unspecified part of unspecified bronchus or lung (principal); J44.9 Chronic obstructive pulmonary disease, unspecified | CPT/HCPCS: 99212 ==

== ENCOUNTER 2022-08-31 07:08 | Outpatient (REF) | payer OTHER, SELFPAY ==
--- NOTE | ~2022-08-31 | CT_ITS ---
EXAMINATION: CT CHEST WITHOUT CONTRAST CLINICAL INFORMATION: Malignant neoplasm. COMPARISON: CT chest 03/07/2022. TECHNIQUE: Multidetector volumetric CT imaging of the chest was done. Axial MIP volume rendering provided. Sagittal and coronal reformatted images were obtained. This CT examination was performed using dose optimization techniques as appropriate, variously including the following: *Automated exposure control *Adjustment of mA and/or kV according to patient size (this includes techniques or standardized protocols for targeted exams where dose is matched to indication/reason for exam; i.e. extremities or head) *Use of iterative reconstruction technique DLP: 126 mGy-cm. FINDINGS: MANAGER QUALITY IMPROVEMENT: Hyperinflated lungs without acute process. LUNGS: There is paraseptal emphysema with bullous changes in the right upper lobe. Small calcified nodules in the left and right upper lobe are stable. A 5 mm noncalcified nodule superior segment left lower lobe axial image 245/8 and a 5 mm nodule right lower lobe medially image 202/8 are stable. There are postsurgical changes with likely right upper lobectomy. Prominent bilateral fine interstitial subpleural changes, chronic, are stable. There are no new nodules or consolidation seen. MEDIASTINUM: Thyroid lobes are asymmetrical but unchanged. Central trachea and the bronchi are widely patent. No abnormal-sized mediastinal or hilar lymph nodes seen. There is atherosclerotic calcification of the thoracic aorta without aneurysmal dilatation. There are small kory in the mediastinum from previous CABG. CORONARY ARTERY CALCIFICATION: Moderate coronary artery calcifications are present. PLEURA: There is no pleural effusion. No pleural mass or thickening. AXILLA: Small shotty lymph nodes are seen in the axilla. UPPER ABDOMEN: Visualized liver, spleen, pancreas and adrenal glands are unremarkable. No radiopaque gallstones or wall thickening seen. There are bilateral nonobstructive radiopaque renal calculi. OSSEOUS STRUCTURES: No aggressive lytic or sclerotic process seen. There are median sternotomy sutures from previous intervention. There is mild deformity of the mid sternum from original fracture. CT/CT chest wo IV con IMPRESSION: Emphysema with significant bullous changes in right upper lobe. No pneumothorax. Small calcified and 5 mm noncalcified lower lobe nodules are stable. Post right upper lobectomy changes are noted. No new mass or nodule seen. Subpleural and parenchymal reticular interstitial changes, likely chronic, are stable and unchanged. Fleischner guidelines were followed.
== END 2022-08-31 07:09 | disposition home or self-care (01) ==
LOC: HO.CT 07:08
PROVIDERS: PCP Physician Assistant; Referring Provider Internal Medicine; Visit Provider Surgery
DX: C34.90 Malignant neoplasm of unspecified part of unspecified bronchus or lung (principal)
CPT/HCPCS: 71250

== ENCOUNTER → 2022-09-09 12:24 | Outpatient (BNVA) | payer OTHER, SELFPAY | PROVIDERS: PCP Physician Assistant; Visit Provider Surgery | DX: C34.90 Malignant neoplasm of unspecified part of unspecified bronchus or lung (principal); F17.210 Nicotine dependence, cigarettes, uncomplicated | CPT/HCPCS: 99212 ==

== ENCOUNTER 2022-09-14 09:50 | Outpatient (REF) | payer OTHER, SELFPAY ==
--- NOTE | ~2022-09-14 | US_ITS ---
EXAMINATION: US EXTRACRANIAL CAROTID DUPLEX, BILATERAL CLINICAL INFORMATION: Carotid stenosis. Status post right endarterectomy in 2019. COMPARISON: Carotid ultrasound 06/28/2021. TECHNIQUE: Real-time ultrasound and Doppler techniques (integrating B-mode 2-D vascular images, Doppler spectral analysis and color-flow Doppler imaging) were utilized to interrogate the extracranial carotid arteries, the vertebral arteries and proximal subclavian arteries bilaterally. The degree of stenosis is determined by criteria similar to NASCET. FINDINGS: Right Side: 1. There is mild atherosclerotic plaque seen in the bifurcation/proximal ICA region. 2. The common carotid artery PSV proximally is 52 cm/s and distally 98 cm/s. 3. The proximal internal carotid artery velocities are 70 cm/s systolic and 17 cm/s diastolic. 4. The proximal external carotid artery PSV is 84 cm/s. 5. The vertebral artery shows antegrade flow. 6. The subclavian artery waveforms are normal. Left Side: 1. There is moderate atherosclerotic plaque seen in the bifurcation/proximal ICA region. 2. The common carotid artery PSV proximally is 56 cm/s and distally 105 cm/s. 3. The proximal internal carotid artery velocities are 143 cm/s systolic and 27 cm/s diastolic. 4. The proximal external carotid artery PSV is 177 cm/s. 5. The vertebral artery shows antegrade flow. 6. The subclavian artery waveforms are normal. US/US carotid duplex BI IMPRESSION: 1. RIGHT: Minimal, non-hemodynamically significant stenosis of the proximal right internal carotid artery corresponding to a 0-49% stenosis by velocity criteria. 2. LEFT: Moderate, hemodynamically significant stenosis of the proximal left internal carotid artery corresponding to a 50-79% stenosis by velocity criteria. 3. There is no change in the category severity of disease when compared to the previous study dated 06/28/2021.
== END 2022-09-14 09:51 | disposition home or self-care (01) ==
LOC: HO.US 09:50
PROVIDERS: PCP Physician Assistant; Visit Provider Surgery Vascular Surgery
DX: I65.23 Occlusion and stenosis of bilateral carotid arteries (principal)
CPT/HCPCS: 93880

== ENCOUNTER → 2022-09-22 12:23 | Outpatient (BNVA) | payer OTHER, SELFPAY | PROVIDERS: PCP Physician Assistant; Visit Provider Surgery Vascular Surgery | DX: I65.23 Occlusion and stenosis of bilateral carotid arteries (principal) | CPT/HCPCS: 99212 ==

== ENCOUNTER 2022-12-20 07:23 | Outpatient (REF) | payer MEDICARE, SELFPAY ==
[2022-12-20 07:41] LABS: MANUAL DIFF FLAG NO
[2022-12-20 08:08] LABS: Appearance Urine Clear; Color Urine Yellow; Glucose Urine UA Negative (Negative); Leukocyte Esterase Urine Negative (Negative); Nitrite Urine Negative (Negative); UMIC TRIGGER UA YES; Urine Blood Moderate (2+) (Negative); Urine Ketones Negative (Negative); Urine Protein 300 (3+) mg/dL (Neg-Trace)
[2022-12-20 08:14] LABS: Bacteria Urine None Seen (None Seen); RBC Urine >20 /HPF (0-2); Squamous Epithelial Cell Urine 0-2 /HPF (0-2); WBC Urine 0-5 /HPF (0-5)
[2022-12-20 08:21] LABS: Basophils Percent Auto 0.1 % (0-2); Hematocrit 34.2 % (42.0-52.0); Hemoglobin 11.6 g/dl (14.0-18.0); Imm Gran Abs Auto 0.05 X10*3/uL (0.00-0.03); Imm Gran Pct Auto 0.5 % (0.0-0.4); Lymphocytes Absolute Auto 2.1 X10*3/uL (1.2-4.9); Lymphocytes Percent Auto 22.3 % (20-40); Mean Corpuscular HGB Conc 33.9 g/dl (31.0-36.0); Mean Corpuscular Hemoglobin 34.5 pg (27.0-33.0); Mean Corpuscular Volume 101.8 fL (80.0-98.0); Mean Platelet Volume 10.8 fL (9.4-12.4); Monocytes Absolute Auto 0.8 X10*3/uL (0.1-1.2); Monocytes Percent Auto 8.6 % (2-11); Neutrophils Absolute Auto 6.4 x10*3/uL (2.0-8.3); Neutrophils Percent Auto 68.5 % (45-73); Platelet Count 198 X10*3/uL (160-400); Red Blood Count 3.36 X10*6/uL (4.60-5.80); Red Cell Distribution Width 14.1 % (11.0-16.0); White Blood Count 9.4 X10*3/uL (4.8-10.8)
[2022-12-20 09:07] LABS: Alanine Aminotransferase 26 U/L (0-40); Albumin Level 3.7 g/dL (3.5-5.0); Alkaline Phosphatase 120 U/L (39-117); Anion Gap 11 (12-20); Aspartate Amino Transferase 28 U/L (5-37); Bilirubin Total 0.3 mg/dL (0.0-1.0); Blood Urea Nitrogen 42 mg/dL (9-16); Calcium 9.8 mg/dL (8.4-10.2); Carbon Dioxide 24 mmol/L (22-29); Chloride 109 mmol/L (96-108); Cholesterol 152 mg/dL (<200); Estimated Glomerular Filt Rate 46; Glucose Fasting 88 mg/dL (60-99); HDL Cholesterol 43 mg/dL (>40); Iron 157 mcg/dL (45-160); LDL Cholesterol Calculated 91 mg/dL (<100); Percent Iron Saturation 78 % (15-50); Potassium 4.4 mmol/L (3.3-5.1); Sodium 140 mmol/L (135-145); Total Iron Binding Capacity 201 mcg/dL (228-428); Total Protein 8.3 g/dL (6.5-8.0); Triglycerides 91 mg/dL (<150); Unsaturated Iron Binding 44 ug/dL
[2022-12-20 09:23] LABS: Prostate Specific Antigen 1.47 ng/mL (<0.05-4.0); Vitamin B12 700 pg/mL (200-900)
== END 2022-12-20 07:24 | disposition home or self-care (01) ==
LOC: HO.LAB 07:23
PROVIDERS: PCP Internal Medicine; Visit Provider Internal Medicine
DX: Z12.5 Encounter for screening for malignant neoplasm of prostate (principal); E78.00 Pure hypercholesterolemia, unspecified; N40.0 Benign prostatic hyperplasia without lower urinary tract symptoms; I12.9 Hypertensive chronic kidney disease with stage 1 through stage 4 chronic kidney disease, or unspecified chronic kidney disease; N18.9 Chronic kidney disease, unspecified; D64.9 Anemia, unspecified
CPT/HCPCS: 36415; 80053; 80061; 81001; 82607; 83540; 84153; 85025

== ENCOUNTER 2023-02-02 12:08 | Outpatient (AMB) | payer OTHER, MEDICARE, SELFPAY ==
[2023-02-02 12:32] VITALS: BP 120/70; PULSE 90; BMI 21.5
--- NOTE | 2023-02-02 12:32 | MHC.OFFVIS ---
Intake Vital Signs 02/02/23 12:32 Height 5 ft 9 in Weight 145 lb 8.081 oz BMI 21.5 BP 120/70 Blood Pressure Location Lt brachial Position Sitting Pulse 90 Intake Visit Reasons: 1 year follow up Intake Note: 1 year follow-up with ekg feeling good Hot Car Charger Required: No Allergies No Known Allergies [No Known Allergies*] Allergy (Verified 09/22/22 13:12) Medication List - Last Reconciled 02/02/23 by Yayo Smith MD albuterol sulfate 90 mcg/actuation 2 puffs inhalation Q4-6H PRN allopurinol 100 mg PO DAILY 90 days amlodipine 10 mg PO BEDTIME ascorbate calcium (vitamin C) 500 mg PO DAILY aspirin 81 mg PO DAILY atorvastatin 80 mg PO BEDTIME 90 days calcium lactate 100 mg PO TID cholecalciferol (vitamin D3) 25 mcg PO DAILY clobetasol 0.05% 1 appl topical BID PRN docusate sodium 50 mg PO BID ferrous sulfate 324 mg PO DAILY folic acid 1 mg PO DAILY metoprolol succinate ER 100 mg PO DAILY metoprolol tartrate 25 mg See Protocol PO BID pyridoxine (vitamin B6) 100 mg PO DAILY 90 days HPI HPI Comments History of Present Illness Details Sammy comes for follow-up. Denies any cardiac complaints. Takes all his medications although notice that he has both on metoprolol XL as well as metoprolol tartrate. That is highly unusual. He denies any exertional chest pain or shortness of breath. Denies any lightheadedness, syncope. Has gained weight since last year. He is able to move around. Complains of fatigue and exertional shortness of breath. No orthopnea, PND, leg edema. [facility] Medical History (Updated 02/02/23 @ 12:57 by Yayo Smith MD) HTN (hypertension) COVID-19 virus infection NSVT (nonsustained ventricular tachycardia) CHF (congestive heart failure) Cigarette smoker Pneumothorax after biopsy (~2021) COPD (chronic obstructive pulmonary disease) Anemia Carotid artery occlusion Coronary artery disease Kidney stone High cholesterol Surgical History History of bronchoscopy (~2021) History of chest tube placement (~2021) History of esophagogastroduodenoscopy (EGD) (~2020) History of lung biopsy (~2021) History of colonoscopy (~2020) History of cystoscopy (~2020) History of CEA (carotid endarterectomy) (~2018) History of lithotripsy (~2002) Hx of CABG (~2018) Family History Father Bone cancer Other No family history of coronary artery disease Social History Household Members: None Housing: House Do you presently have visiting nurse or other home services: Yes (previously had home services) Alcohol intake: former Patient Tobacco Use Status: Current everyday Tobacco user Tobacco use type: Cigarette Cigarette Packs Per Day: 0.5 Cigarettes Per Day: 6 Years Smoked: 60 e-Cigarette/Vaping Use: Never Used Second Hand Smoke Exposure: No Advance Directives Date on File: 10/12/21 service: Yes Current occupational status: retired Review of Systems Const Denies chills, Denies fatigue, Denies fever(s), Denies frequent falls, Denies weakness, Denies weight gain and Denies weight loss ENT Denies dizziness Card Denies chest pain, Denies leg edema, Denies lightheadedness, Denies palpitations, Denies dyspnea, Denies dyspnea on exertion, Denies orthopnea and Denies other (loss of consciousness) Resp Denies cough, Denies dyspnea and Denies dyspnea on exertion GI Denies hematochezia and Denies change in stool character Musc Denies abnormal gait, Denies muscle weakness, Denies numbness, Denies radiating pain into limb and Denies tingling Neuro Denies abnormal gait, Denies dizziness, Denies frequent falls, Denies numbness, Denies tingling and Denies weakness Endo Denies fatigue and Denies palpitations Physical Exam Vital Signs: Last Vital Signs Pulse 90 02/02/23 12:32 BP 120/70 02/02/23 12:32 BMI result Body Mass Index 21.5 Const General: cooperative, comfortable, no acute distress, alert and awake Nutritional Appearance: average body habitus Orientation/consciousness: patient oriented x3 Neck Neck: Yes trachea midline, Yes supple and Yes no JVD Resp Effort & Inspection: normal respiratory effort Auscultation: clear to auscultation bilaterally Cardio Jugular venous distension: no JVD Palpation: normal PMI Rate: regular rate Rhythm: regular rhythm Heart sounds: S1 normal heart sound present, S2 normal heart sound present, no click, no gallops, no murmurs and no rubs Peripheral pulses: other (Reduced bilateral distal pulses) GI Auscultation: normal bowel sounds Skin General skin exam: ecchymosis Rashes: rashes noted ( Diffuse) Neuro General: patient oriented x3 and no focal motor deficits Extrem General: Yes no clubbing, cyanosis or edema Psych Appearance: grossly normal Office Procedures EKG Details: EKG shows normal sinus rhythm with normal EKG [id number], Complete Assessment & Plan Assessment & Plan (1) Coronary artery disease: Comment: (S/p CABG x 5 in 2019. Denies recent chest pain) Code(s): I25.10 - Atherosclerotic heart disease of telida coronary artery without angina pectoris Plan: CAD status post five-vessel coronary artery bypass grafting. Clinically doing well. Given his malignancy, currently will continue pursue conservative medical management. Continue low-dose aspirin therapy for life. Continue current statin therapy which is high-intensity although LDL is not well optimized. If he has good prognosis from cancer perspective will pursue graft surveillance with stress test next year. Continue aggressive blood pressure control. Advised to maintain activity level as tolerated. (2) HTN (hypertension): Code(s): I10 - Essential (primary) hypertension Plan: Hypertension which is currently well optimized advised to monitor blood pressure at home maintain a log. Low-salt diet was discussed continue current therapy. There is no indication for 2 different types of metoprolol therapy. Will discontinue metoprolol tartrate 25 mg b.i.d.. Advised to maintain activity level as tolerated. Will follow up in the clinic in 1 year's time, sooner p.r.n.. Thank you for allowing me to partake in his care Medications: Discontinued metoprolol tartrate Discontinued Reason: Doctor's Order 25 mg See Protocol PO BID 60 tabs 0RF Coding Level of Care Code Est Pt Level 4 (39117) Diagnoses Coronary artery disease I25.10 HTN (hypertension) I10 CPT Codes EKG - CPT: 34907-[id number], Complete ([id number])
== END 2023-02-02 12:55 | disposition home or self-care (01) ==
PROVIDERS: Visit Provider Internal Medicine Cardiovascular Disease
DX: I25.10 Atherosclerotic heart disease of native coronary artery without angina pectoris (principal); I10 Essential (primary) hypertension
CPT/HCPCS: 93010; 99214

== ENCOUNTER → 2023-02-02 12:08 | Outpatient (BNVA) | payer OTHER, MEDICARE, SELFPAY | PROVIDERS: Visit Provider Internal Medicine Cardiovascular Disease | DX: I25.10 Atherosclerotic heart disease of native coronary artery without angina pectoris (principal); I10 Essential (primary) hypertension | CPT/HCPCS: 93005; 99212 ==

== ENCOUNTER 2023-02-14 08:29 | Emergency (ER) | payer OTHER, MEDICARE, SELFPAY ==
[2023-02-14] VITALS (7 sets, daily range): BP systolic 126–160; BP diastolic 74–90; PULSE 98–110; RESP 15–20; TEMP 36.6–38.2; O2SAT 96–100; BMI 20.8
--- NOTE | ~2023-02-14 | XR_ITS ---
EXAMINATION: XR CHEST CLINICAL INFORMATION: Cough COMPARISON: Chest radiograph from 12/07/2021 TECHNIQUE: Frontal view of the chest was obtained. FINDINGS: Chronic interstitial changes. Biapical pleural parenchymal scarring. No pneumothorax. Cardiac mediastinal silhouette is not enlarged. Sternotomy wires and surgical clips. Aorta demonstrates atherosclerotic calcifications. No large pleural effusion. Osseous structures are intact. Soft tissues are unremarkable. XR/XR chest 1V IMPRESSION: 1. Chronic interstitial changes. 2. Biapical pleural parenchymal scarring.
--- NOTE | ~2023-02-14 | CT_ITS ---
EXAMINATION: CT HEAD WITHOUT CONTRAST CLINICAL INFORMATION: Fall. Loss of consciousness. COMPARISON: CT head December 02, 2021 TECHNIQUE: Contiguous axial imaging was performed from the skull base to vertex without intravenous administration of contrast. Coronal and sagittal reformatted images are performed at the CT scanner. [This CT examination was performed using dose optimization techniques as appropriate, variously including the following: *Automated exposure control *Adjustment of mA and/or kV according to patient size (this includes techniques or standardized protocols for targeted exams where dose is matched to indication/reason for exam; i.e. extremities or head) *Use of iterative reconstruction technique] DLP: 631 mGy-cm. FINDINGS: At the right parietal-occipital lobe there is a ovoid hypodensity in the parenchyma measuring approximately 3 x 1.6 x 1.6 cm with surrounding vasogenic edema. This may be a hyperdense mass versus acute parenchymal hemorrhage. (Patient does have history of lung malignancy and therefore a metastatic lesion would be most likely.) There is localized mass effect but no midline shift. No extra-axial collection. No intraventricular hemorrhage. There is generalized global volume loss. There is moderate prominence of the ventricles and the sulci . There is moderate hypodensity of the periventricular white matter due to chronic small vessel ischemic disease. There are vascular calcifications of the internal carotid arteries bilaterally. There is no osseous abnormality. The mastoid air cells and visualized portions of the paranasal sinuses are well-aerated. CT/CT head/brain wo IV con IMPRESSION: Hyperdense lesion in the right parietal-occipital lobe. Recommend MRI brain without and with contrast for further evaluation. This critical result was discussed with Dominique Gee on February 14, 2023, 4:25 PM and it was ascertained that the content and urgency of the report was understood at the time of direct communication.
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
--- NOTE | ~2023-02-14 | MR_ITS ---
EXAMINATION: MR BRAIN WITHOUT AND WITH CONTRAST CLINICAL INFORMATION: ? Mass in the right parietal occipital lobe. COMPARISON: CT head on same day. TECHNIQUE: Multiplanar, multisequence MRI of the brain was obtained before and after the intravenous administration of 6 mL Gadavist. FINDINGS: There is a 3.4 x 2.5 cm focus of restricted diffusion in the posterior right temporal lobe which demonstrates intrinsic T1 hyperintensity and regular peripheral susceptibility artifact. Evaluation for enhancement is limited given interesting T1 hyperintensity. Mild amount of T2/FLAIR hyperintensity seen surrounding this lesion. No other sites of abnormal intraparenchymal enhancement. Scattered and confluent periventricular white matter T2/FLAIR hyperintensities, nonspecific however commonly seen with small vessel ischemic disease. Diffuse prominence of the sulci with associated ex vacuo dilation of the ventricles compatible with global cerebral atrophy. No midline shift or hydrocephalus. No acute extra-axial fluid collections. The osseous structures are unremarkable. Partially empty sella. The pineal gland and remaining midline structures are unremarkable. No orbital pathology. The paranasal sinuses and mastoid air cells are clear. MR/MR head/brain wo/w con IMPRESSION: -Intrinsically T1 hyperintense lesion in the right posterior temporal lobe with associated restricted diffusion in peripheral susceptibility artifact. Findings are concerning for hemorrhagic metastatic lesion given apparent history of lung of malignancy. Please note that intraparenchymal hemorrhage can also have this appearance. Recommend short-term follow-up MRI with and without contrast to further assess. 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
--- NOTE | 2023-02-14 08:52 | PC.NURSE ---
pt BIBA from home for fall. pt sts he was feeling dizzy/weak prior to fall. pt sts he normally wears his life alert but did not have it on him at the time of the fall. pt estimated downtime to be 20 minutes. pt has no complaints, denies pain. pt has small skin tear to left elbow. pt tachycardic, HR 108, pt also felt warm. rectal temp taken and noted to be 100.8. pt placed on bedside monitor. rr 15, even and unlabored. pt changed into hospital attire. 20G IV to L forearm placed by EMS. call hector within pt reach. awaiting provider pickup.
--- NOTE | 2023-02-14 09:18 | ECG_ITS ---
Test Reason : FALL Blood Pressure : / mmHG Vent. Rate : 107 BPM Atrial Rate : 107 BPM P-R Int : 180 ms QRS Dur : 086 ms QT Int : 348 ms P-R-T Axes : 078 032 074 degrees QTc Int : 464 ms Sinus tachycardia Otherwise normal ECG When compared with ECG of 09-DEC-2021 04:09, Premature ventricular complexes are no longer Present Referred By: Dominique Durant Electronically Signed By:SVETA MADRID MD
[2023-02-14 09:56] LABS: MANUAL DIFF FLAG NO
[2023-02-14 10:03] LABS: Venous Blood Gas Refer to POC result
[2023-02-14 10:03] LABS: VBG Base Excess -2.5 mmol/L; VBG HCO3 21 mmol/L (22-26); VBG pCO2 35 mmHg; VBG pH 7.38 (7.32-7.43); VBG pO2 37 mmHg
[2023-02-14 10:07] LABS: Basophils Percent Auto 0.2 % (0-2); Hematocrit 31.5 % (42.0-52.0); Hemoglobin 10.5 g/dl (14.0-18.0); Imm Gran Abs Auto 0.02 X10*3/uL (0.00-0.03); Imm Gran Pct Auto 0.4 % (0.0-0.4); Lymphocytes Absolute Auto 0.5 X10*3/uL (1.2-4.9); Lymphocytes Percent Auto 11.2 % (20-40); Mean Corpuscular HGB Conc 33.3 g/dl (31.0-36.0); Mean Corpuscular Hemoglobin 34.2 pg (27.0-33.0); Mean Corpuscular Volume 102.6 fL (80.0-98.0); Mean Platelet Volume 10.8 fL (9.4-12.4); Monocytes Absolute Auto 0.3 X10*3/uL (0.1-1.2); Monocytes Percent Auto 6.2 % (2-11); Platelet Count 158 X10*3/uL (160-400); Red Blood Count 3.07 X10*6/uL (4.60-5.80); Red Cell Distribution Width 14.3 % (11.0-16.0); White Blood Count 4.8 X10*3/uL (4.8-10.8)
--- NOTE | 2023-02-14 10:11 | ED_ITS ---
HPI - Fall General Chief Complaint: Fall Stated Complaint: DIZZY W/FALL,SKIN TEAR L ELBOW PER EMS Time Seen by Provider: 02/14/23 09:18 Source: patient Mode of arrival: EMS History of Present Illness HPI Narrative: 77-year-old male who arrives via EMS and states that he was getting up to go to the bathroom and then suddenly found himself on the floor and was unable to get up, he had to crawl along the floor and then called EMS. contusion to left eyebrow, skin tear to left elbow, patient did report head strike but is not on any blood thinners. He states that he feels like he has had a fever but denies any nausea, vomiting, abdominal pain, but reports new cough or 1 week but denies sore throat. Related Data Home Medications Medication Instructions Recorded Confirmed aspirin 81 mg chewable tablet 81 mg PO DAILY 05/27/21 02/02/23 ascorbate calcium (vitamin C) 500 500 mg PO DAILY 06/11/21 02/02/23 mg tablet cholecalciferol (vitamin D3) 25 25 mcg PO DAILY 06/11/21 02/02/23 mcg (1,000 unit) capsule ferrous sulfate 324 mg (65 mg 324 mg PO DAILY 06/11/21 02/02/23 iron) tablet,delayed release albuterol sulfate 90 mcg/actuation 2 puff inhalation Q4-6H PRN 10/07/21 02/02/23 aerosol inhaler wheezing docusate sodium 50 mg capsule 50 mg PO BID 10/07/21 02/02/23 folic acid 1 mg tablet 1 mg PO DAILY 10/07/21 02/02/23 clobetasol 0.05 % topical ointment 1 appl topical BID PRN RASH ON 10/09/21 02/02/23 ARMS AND LEGS amlodipine 10 mg tablet 10 mg PO BEDTIME 09/22/22 02/02/23 metoprolol succinate 100 mg 100 mg PO DAILY 09/22/22 02/02/23 tablet,extended release 24 hr calcium lactate 100 mg calcium 100 mg PO TID 02/02/23 02/02/23 tablet Previous Rx's Medication Instructions Recorded allopurinol 100 mg tablet 100 mg PO DAILY 90 days #90 tabs 06/21/21 pyridoxine (vitamin B6) 100 mg 100 mg PO DAILY 90 days #90 tabs 07/22/21 tablet atorvastatin 80 mg tablet 80 mg PO BEDTIME 90 days #90 tabs 08/06/21 Allergies Allergy/AdvReac Type Severity Reaction Status Date / Time No Known Allergies Allergy Verified 09/22/22 13:12 [No Known Allergies*] Review of Systems 2 Review of Systems: Pertinent positives and negatives as stated in HPI [facility] Past Medical History Source: nursing notes reviewed Medical History HTN (hypertension) COVID-19 virus infection NSVT (nonsustained ventricular tachycardia) CHF (congestive heart failure) Cigarette smoker Pneumothorax after biopsy (~2021) COPD (chronic obstructive pulmonary disease) Anemia Carotid artery occlusion Coronary artery disease Kidney stone High cholesterol Surgical History History of bronchoscopy (~2021) History of chest tube placement (~2021) History of esophagogastroduodenoscopy (EGD) (~2020) History of lung biopsy (~2021) History of colonoscopy (~2020) History of cystoscopy (~2020) History of CEA (carotid endarterectomy) (~2018) History of lithotripsy (~2002) Hx of CABG (~2018) Family History Family History Father Bone cancer Other No family history of coronary artery disease Social History Social History Household Members: None Housing: House Do you presently have visiting nurse or other home services: Yes (previously had home services) Alcohol intake: former Patient Tobacco Use Status: Current everyday Tobacco user Tobacco use type: Cigarette Cigarette Packs Per Day: 0.5 Cigarettes Per Day: 6 Years Smoked: 60 Smoked in Last 30 Days: Yes e-Cigarette/Vaping Use: Never Used Second Hand Smoke Exposure: No Use of substances other than those prescribed or required for medical reasons: No Advance Directives: Yes Advance Directives on File: Yes Advance Directives Date on File: 10/12/21 service: Yes Current occupational status: retired Physical Exam 2 Vital Signs: Vital Signs: Last Vital Signs Temp 99.9 F 02/14/23 12:04 Pulse 100 02/14/23 12:09 Resp 20 02/14/23 12:09 BP 136/74 02/14/23 12:09 Pulse Ox 97 02/14/23 12:09 O2 Del Method Room Air 02/14/23 12:09 BMI result Body Mass Index 20.8 VITAL SIGNS: Reviewed. GENERAL: Cachectic, in no acute distress. HEAD: Normocephalic/small contusion over left eyebrow EYES: PERRLA, EOMI intact without pain, no nystagmus/pallor/icterus noted EARS: Ext canals without abnormality, TMs non-bulging and non-erythematous NOSE: Nares patent bilateral OROPHARYNX: no oral lesions noted, posterior pharynx clear and non-erythematous without noted tonsillar enlargement/erythema/exudates NECK: Supple, no adenopathy LUNGS: Normal breath sounds. No adventitious sounds or accessory muscle use. SpO2<99> CARDIOVASCULAR: Regular rate and rhythm without noted murmurs, no JVD or lower extremity edema. ABDOMEN: Soft, non-tender, non-distended with bowel sounds. PELVIS: Stable, nontender MUSCULOSKELETAL: No tenderness, deformities, or effusions noted on gross inspection. EXTREMITIES: No cyanosis, clubbing or edema. LUE: Skin tear to left elbow that is hemostatic SKIN: Inspection of the skin reveals no rashes NEUROLOGIC: Alert and oriented x 4. Strength and sensation to light touch were grossly intact x 4, cranial nerves 2-12 are grossly intact.. Medications Administered Discontinued Medications Generic Name Dose Route Start Last Admin Trade Name Freq PRN Reason Stop Dose Admin Acetaminophen 650 mg 02/14/23 09:47 02/14/23 10:28 Acetaminophen Supp 650 Mg Supp.Rect WA 02/14/23 09:48 650 mg ONCE ONE Administration Medical Decision Making Medical Decision Making [facility] Narrative: 77-year-old male with history and clinical presentation, DDX: Infection, anemia, electrolyte abnormality, arrhythmia. Daughter did provided additional information stating that patient typically becomes febrile after his COVID-19 vaccine and he received a COVID booster yesterday. I reviewed all investigations and hematologic indices are negative for leukocytosis, there is a chronic stable thrombocytopenia and a stable macrocytic anemia without history or clinical findings of active bleeding. VBG does not demonstrate any respiratory acidosis and there is no evidence of hypercapnia. Chemistry indices demonstrate a persistent JOSE ALFREDO from December so at this point it may be considered CKD, however there is no electrolyte or liver enzyme derangements. Chest x-ray negative for infiltrate or evidence of venous congestion and otherwise my interpretation is in agreement with radiology's impression. EKG did not demonstrate any evidence of STEMI Nursing reported to me that patient's bladder scan demonstrates greater than 500 cc and he is tried multiple times to pass urine unsuccessfully. Boss catheter was placed with good release of urine and will remain in place and he will be referred to Urology. Urinalysis is otherwise negative for UTI and hematuria is suspected to be associated with Boss catheter placement. Viral testing is otherwise negative for COVID-[address] head is pending. Signed out to Dr Morales Differential Diagnosis Differential Diagnoses: The differential diagnosis associated with the presentation includes Please see the discussion above Admission/Observation Consideration of admission/observation: Escalation of care including admission/observation considered Please see the discussion above Lab Data MDM Lab Attestation statement: I reviewed the patient's lab results. Please see the discussion above 02/14/23 09:45 02/14/23 09:44 Labs: Lab Results 02/14/23 02/14/23 02/14/23 Range/Units 09:44 09:45 09:57 WBC 4.8 (4.8-10.8) X10*3/uL RBC 3.07 L (4.60-5.80) X10*6/uL Hgb 10.5 L (14.0-18.0) g/dl Hct 31.5 L (42.0-52.0) % MCV 102.6 H (80.0-98.0) fL MCH 34.2 H (27.0-33.0) pg MCHC 33.3 (31.0-36.0) g/dl RDW 14.3 (11.0-16.0) % Plt Count 158 L (160-400) X10*3/uL MPV 10.8 (9.4-12.4) fL Immature Gran % (Auto) 0.4 (0.0-0.4) % Neut % (Auto) 82.0 H (45-73) % Lymph % (Auto) 11.2 L (20-40) % Traill % (Auto) 6.2 (2-11) % Eos % (Auto) 0.0 (0-4) % Baso % (Auto) 0.2 (0-2) % Lymph # (Auto) 0.5 L (1.2-4.9) X10*3/uL [place]ill # (Auto) 0.3 (0.1-1.2) X10*3/uL Eos # (Auto) 0.0 (0.0-0.4) X10*3/uL Baso # (Auto) 0.0 (0.0-0.2) X10*3/uL Abs Immat Gran (auto) 0.02 (0.00-0.03) X10*3/uL Absolute Neuts (auto) 4.0 (2.0-8.3) x10*3/uL Absolute Nucleated RBC 0.000 (0.0-0.012) X10*3/uL Nucleated RBC % (auto) 0.0 (0.0-0.2) /100WBC VBG pH 7.38 (7.32-7.43) VBG pCO2 35 mmHg VBG pO2 37 mmHg VBG HCO3 21 L (22-26) mmol/L VBG O2 Saturation 57.0 % VBG Base Excess -2.5 mmol/L Sodium 141 (135-145) mmol/L Potassium 4.5 (3.3-5.1) mmol/L Chloride 112 H (96-108) mmol/L Carbon Dioxide 20 L (22-29) mmol/L Anion Gap 14 (12-20) BUN 35 H (9-16) mg/dL Creatinine 1.42 H (0.5-1.4) mg/dL Estim Creat Clear Calc 39.3 Estimated GFR 48 Random Glucose 88 (60-115) mg/dL Lactic Acid 1.0 (0.5-2.0) mmol/L Calcium 9.1 D (8.4-10.2) mg/dL Total Bilirubin 0.3 (0.0-1.0) mg/dL AST 35 (5-37) U/L ALT 26 (0-40) U/L Alkaline Phosphatase 111 (39-117) U/L Total Protein 7.7 (6.5-8.0) g/dL Albumin 3.6 (3.5-5.0) g/dL Urine Color Urine Appearance Urine pH (5.0-9.0) Ur Specific [employer] (1.005-1.025) Urine Protein (Neg-Trace) mg/dL Urine Glucose (UA) (Negative) mg/dL Urine Ketones (Negative) mg/dL Urine Blood (Negative) Urine Nitrite (Negative) Ur Leukocyte Esterase (Negative) Urine RBC (0-2) /HPF Urine WBC (0-5) /HPF Ur Squamous Epith Cells (0-2) /HPF Urine Bacteria (None Seen) Hyaline Casts (0-2) /LPF COVID-19 (TANISHA) Negative (Negative) COVID-19 Clin Com See Note Influenza Type A (ROSALIO) Negative (Negative) Influenza Type B (ROSALIO) Negative (Negative) Influenza A & B Note See Note 02/14/23 Range/Units 12:35 WBC (4.8-10.8) X10*3/uL RBC (4.60-5.80) X10*6/uL Hgb (14.0-18.0) g/dl Hct (42.0-52.0) % MCV (80.0-98.0) fL MCH (27.0-33.0) pg MCHC (31.0-36.0) g/dl RDW (11.0-16.0) % Plt Count (160-400) X10*3/uL MPV (9.4-12.4) fL Immature Gran % (Auto) (0.0-0.4) % Neut % (Auto) (45-73) % Lymph % (Auto) (20-40) % [place]ill % (Auto) (2-11) % Eos % (Auto) (0-4) % Baso % (Auto) (0-2) % Lymph # (Auto) (1.2-4.9) X10*3/uL [place] # (Auto) (0.1-1.2) X10*3/uL Eos # (Auto) (0.0-0.4) X10*3/uL Baso # (Auto) (0.0-0.2) X10*3/uL Abs Immat Gran (auto) (0.00-0.03) X10*3/uL Absolute Neuts (auto) (2.0-8.3) x10*3/uL Absolute Nucleated RBC (0.0-0.012) X10*3/uL Nucleated RBC % (auto) (0.0-0.2) /100WBC VBG pH (7.32-7.43) VBG pCO2 mmHg VBG pO2 mmHg VBG HCO3 (22-26) mmol/L VBG O2 Saturation % VBG Base Excess mmol/L Sodium (135-145) mmol/L Potassium (3.3-5.1) mmol/L Chloride (96-108) mmol/L Carbon Dioxide (22-29) mmol/L Anion Gap (12-20) BUN (9-16) mg/dL Creatinine (0.5-1.4) mg/dL Estim Creat Clear Calc Estimated GFR Random Glucose (60-115) mg/dL Lactic Acid (0.5-2.0) mmol/L Calcium (8.4-10.2) mg/dL Total Bilirubin (0.0-1.0) mg/dL AST (5-37) U/L ALT (0-40) U/L Alkaline Phosphatase (39-117) U/L Total Protein (6.5-8.0) g/dL Albumin (3.5-5.0) g/dL Urine Color Yellow Urine Appearance Clear Urine pH 6.0 (5.0-9.0) Ur Specific [employer] 1.020 (1.005-1.025) Urine Protein 300 (3+) H (Neg-Trace) mg/dL Urine Glucose (UA) Negative (Negative) mg/dL Urine Ketones Negative (Negative) mg/dL Urine Blood Trace H (Negative) Urine Nitrite Negative (Negative) Ur Leukocyte Esterase Negative (Negative) Urine RBC 3-5 H (0-2) /HPF Urine WBC 0-5 (0-5) /HPF Ur Squamous Epith Cells 0-2 (0-2) /HPF Urine Bacteria None Seen (None Seen) Hyaline Casts 0-2 (0-2) /LPF COVID-19 (TANISHA) (Negative) COVID-19 Clin Com Influenza Type A (ROSALIO) (Negative) Influenza Type B (ROSALIO) (Negative) Influenza A & B Note Independent Interpretation I performed an independent interpretation of an: EKG Interpretation: Sinus tachycardia, HR-107, no STEMI, WA/QRS/QTC is within normal limits. Radiology Impression Discussion of test interpretation with radiology: I have reviewed the radiologist's reading. Radiologist Impression: Please see the discussion above External Record Review External record reviewed: Outpatient record, Prior outpatient labs and Prior outpatient radiology Chronic Conditions Patient?s care impacted by: Hypertension and Other COPD Critical Care Time Critical Care Time Critical Care Time: Yes Total Critical Care Time: 45 Attestation: I personally attest to this time spent taking care of the patient. Discharge Plan Discharge Clinical Impression: Fever after vaccination, Fall, Urinary retention Patient Disposition: Home, Self-Care Instructions: Urinary Retention in Men (ED), Fever in Adults (ED), Boss Catheter Placement and Care (ED), Fall Prevention for Older Adults (ED) Additional Instructions: 1. Resume all home medications as prescribed. 2. You have been provided with a referral to follow-up with urology for urinary retention. 3. Please call the office of your primary care provider 1st thing in the morning. Return to the ER for any worsening symptoms. Prescriptions: No Action allopurinol 100 mg tablet 100 mg PO DAILY 90 Days Qty: 90 1RF pyridoxine (vitamin B6) 100 mg tablet 100 mg PO DAILY 90 Days Qty: 90 0RF atorvastatin 80 mg tablet 80 mg PO BEDTIME 90 Days Qty: 90 3RF aspirin 81 mg Tablet,Chewable 81 mg PO DAILY albuterol sulfate 90 mcg/actuation HFA aerosol inhaler 2 puff inhalation Q4-6H PRN (Reason: wheezing) docusate sodium 50 mg Capsule 50 mg PO BID clobetasol 0.05 % Ointment 1 appl TOPICAL BID PRN (Reason: RASH ON ARMS AND LEGS) folic acid 1 mg tablet 1 mg PO DAILY ascorbate calcium (vitamin C) 500 mg tablet 500 mg PO DAILY ferrous sulfate 324 mg (65 mg iron) tablet,delayed release (DR/EC) 324 mg PO DAILY cholecalciferol (vitamin D3) 25 mcg (1,000 unit) capsule 25 mcg PO DAILY calcium lactate 100 mg calcium tablet 100 mg PO TID metoprolol succinate 100 mg tablet extended release 24 hr 100 mg PO DAILY amlodipine 10 mg tablet 10 mg PO BEDTIME Referrals: Domenica Arguello MD [Physician] - Franco Goel MD [Primary Care Provider] -
[2023-02-14 10:22] LABS: COVID-19 Test Negative (Negative); IDNOW Serial# BCCEAD1C
[2023-02-14 10:24] LABS: IDNOW Serial# 9DB6401D; Influenza A Negative (Negative); Influenza B2 Negative (Negative)
[2023-02-14] MEDS: Acetaminophen Supp 650 MG SUPP.RECT PR (10:28)
--- NOTE | 2023-02-14 10:39 | PC.NURSE ---
skin tear to left elbow/forearm cleaned with normal saline then dressed with non-adherant pad and wrapped.
[2023-02-14 10:45] LABS: Alanine Aminotransferase 26 U/L (0-40); Albumin Level 3.6 g/dL (3.5-5.0); Alkaline Phosphatase 111 U/L (39-117); Anion Gap 14 (12-20); Aspartate Amino Transferase 35 U/L (5-37); Bilirubin Total 0.3 mg/dL (0.0-1.0); Blood Urea Nitrogen 35 mg/dL (9-16); Calcium 9.1 mg/dL (8.4-10.2); Carbon Dioxide 20 mmol/L (22-29); Chloride 112 mmol/L (96-108); Creatinine Clr Calc Pharmacy 39.3; Estimated Glomerular Filt Rate 48; Glucose Random 88 mg/dL (60-115); Potassium 4.5 mmol/L (3.3-5.1); Sodium 141 mmol/L (135-145); Total Protein 7.7 g/dL (6.5-8.0)
[2023-02-14 12:44] LABS: Appearance Urine Clear; Color Urine Yellow; Glucose Urine UA Negative (Negative); Leukocyte Esterase Urine Negative (Negative); Nitrite Urine Negative (Negative); UMIC TRIGGER UACC YES; Urine Blood Trace (Negative); Urine Ketones Negative (Negative); Urine Protein 300 (3+) mg/dL (Neg-Trace)
--- NOTE | 2023-02-14 12:45 | PC.NURSE ---
pearl catheter placed. pt tolerated well. immediate urine output. UA collected and sent.
[2023-02-14 12:47] LABS: Bacteria Urine None Seen (None Seen); Hyaline Casts Urine 0-2 /LPF (0-2); Squamous Epithelial Cell Urine 0-2 /HPF (0-2); WBC Urine 0-5 /HPF (0-5)
[2023-02-14] MEDS: dexAMETHasone sod phosphate 4 MG/ML VIAL IVPUSH (18:48)
--- NOTE | 2023-02-14 19:15 | PC.NURSE ---
pt requesting pearl to be removed. Dr. Hernández aware and given ok . 1400cc total noted output. pearl removed. pt tolerated well.
--- NOTE | 2023-02-14 19:22 | MHC.EDTECH ---
This tech took over care of patient at 1900, upon entry to room patient was leaving to go to MRI,will take vitals when patient returns.
[2023-02-14] MEDS: gadobutroL 7.5 ML VIAL IVPUSH (20:57)
--- NOTE | 2023-02-14 22:05 | MHC.EDTECH ---
Patient just got back from MRI,hourly rounds and vitals completed.
--- NOTE | 2023-02-14 22:21 | MHC.EDTECH ---
Belonging list completed,patient being transferred, patient has a 100.00 bill folded inside where his cards are in wallet and 230.00 in wallet visible a total of 330.00Cash RN Donovan at bedside
--- NOTE | 2023-02-14 23:51 | MHC.EDTECH ---
Hourly rounds and vitals completed,patient is waiting for EMS at this time.
== END 2023-02-15 00:10 | disposition short-term general hospital (02) ==
PROVIDERS: Student in an Organized Health Care Education/Training Program; Emergency Provider Internal Medicine; PCP Internal Medicine
DX: S00.12XA Contusion of left eyelid and periocular area, initial encounter (principal); S51.012A Laceration without foreign body of left elbow, initial encounter; W01.198A Fall on same level from slipping, tripping and stumbling with subsequent striking against other object, initial encounter; R50.83 Postvaccination fever; T50.B95A Adverse effect of other viral vaccines, initial encounter; Y92.9 Unspecified place or not applicable; R33.9 Retention of urine, unspecified; I11.0 Hypertensive heart disease with heart failure; I50.9 Heart failure, unspecified; E78.5 Hyperlipidemia, unspecified; J44.9 Chronic obstructive pulmonary disease, unspecified; D64.9 Anemia, unspecified; F17.210 Nicotine dependence, cigarettes, uncomplicated; Z11.52 Encounter for screening for COVID-19; Y93.89 Activity, other specified; Y92.038 Other place in apartment as the place of occurrence of the external cause; Y99.9 Unspecified external cause status; Z79.82 Long term (current) use of aspirin; Z79.899 Other long term (current) drug therapy
CPT/HCPCS: 36415; 51702; 70450; 70553; 71045; 80053; 81001; 82803; 83605; 85025; 87040; 87147; 87205; 87502; 87635; 93005; 96374; 96375; 99285; A9585; J1100

== ENCOUNTER 2023-04-05 13:28 | Outpatient (AMB) | payer OTHER, SELFPAY ==
--- NOTE | 2023-04-05 14:33 | A.OFFVIS_ITS ---
Intake Intake Visit Reasons: ER f/u Intake Note: New Patient presents for initial visit for retention Urology Medications: none Blood Thinner: aspirin PVR: 120ml's Form Setter Required: No Accompanied by: Self / Same As Patient Allergies No Known Allergies [No Known Allergies*] Allergy (Verified 04/05/23 17:40) Medication List - Last Reconciled 04/05/23 by KIMMY BanksP- albuterol sulfate 90 mcg/actuation 2 puffs inhalation Q4-6H PRN allopurinol 100 mg PO DAILY 90 days amlodipine 10 mg PO BEDTIME ascorbate calcium (vitamin C) 500 mg PO DAILY atorvastatin 80 mg PO BEDTIME 90 days calcium lactate 100 mg PO TID cholecalciferol (vitamin D3) 25 mcg PO DAILY clobetasol 0.05% 1 appl topical BID PRN diphenhydramine HCl 25 mg PO BEDTIME PRN ferrous sulfate 324 mg PO DAILY folic acid 1 mg PO DAILY loratadine (Allergy Relief (loratadine)) 10 mg PO DAILY metoprolol succinate ER 25 mg PO BID multivitamin 1 tab PO DAILY pyridoxine (vitamin B6) 100 mg PO DAILY 90 days tamsulosin (Flomax) 0.4 mg PO BEDTIME 90 days HPI HPI Comments History of Present Illness0 Details Laron is a very pleasant 78 year old male patient of Dr. Goel. He has a PMH of lung cancer diagnosed in 06/01 status post chemotherapy, carotid artery stenosis, history of CABG in 2018, pneumonia, daily smoker, hypertension, NSVT, CHF, COPD, anemia, nephrolithiasis, and hypercholestermia. He presents to the office today for a follow up of his urinary retention. Of note, patient seeked emergency room care approximately one month ago after a mechanical fall at which time patient was noted to be in retention and a pearl was placed. He presents to the office today for a follow up. 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 He reports having had pearl removed prior to discharge from [facility] approximately 3-4 weeks ago. He reports to be voiding without difficulty. In office urinalysis results reviewed with the patient today. PVR 120 mL. Discussed at length potential causes of urinary retention as well as incomplete bladder emptying. In review of patient's chart it appears PSA 12/31--1.5. He discusses prior to his mechanical fall he had not been having any urinary issues or concerns. He reports having followed up with Dr. Mcintosh in the past for his longstanding history of nephrolithiasis however has not been having issues with his renal stones. When asked he denies any bothersome urinary issues or concerns. He reports his main concern is his follow-up with his neurologist on Monday regarding his brain lesion with question of metastasis. When asked he denies urinary urgency, urinary frequency, incontinence, nocturia, hematuria, dysuria, foul smelling urine, changes to urinary stream, flank pain, fever, and or chills. He is happy with his current voiding parameters. [facility] Medical History HTN (hypertension) COVID-19 virus infection NSVT (nonsustained ventricular tachycardia) CHF (congestive heart failure) Cigarette smoker Pneumothorax after biopsy (~2021) COPD (chronic obstructive pulmonary disease) Anemia Carotid artery occlusion Coronary artery disease Kidney stone High cholesterol Surgical History History of bronchoscopy (~2021) History of chest tube placement (~2021) History of esophagogastroduodenoscopy (EGD) (~2020) History of lung biopsy (~2021) History of colonoscopy (~2020) History of cystoscopy (~2020) History of CEA (carotid endarterectomy) (~2018) History of lithotripsy (~2002) Hx of CABG (~2018) Family History Father Bone cancer Other No family history of coronary artery disease Social History Household Members: None Housing: House Do you presently have visiting nurse or other home services: Yes (previously had home services) Alcohol intake: former Comment: patient refused alarm Patient Tobacco Use Status: Current everyday Tobacco user Tobacco use type: Cigarette Cigarette Packs Per Day: 0.5 Cigarettes Per Day: 6 Years Smoked: 60 e-Cigarette/Vaping Use: Never Used Second Hand Smoke Exposure: No Advance Directives Date on File: 10/12/21 service: Yes Current occupational status: retired Review of Systems Const Reports as per HPI Eyes Reports no additional complaints ENT Reports no additional complaints Card Reports as per [facility] Resp Reports as per [facility] GI Reports no additional complaints Reports as per [facility] Musc Reports as per [facility] Neuro Reports as per [facility] Psych Reports no additional complaints Endo Reports no additional complaints Poncho/Lymph Reports as per [facility] Physical Exam Const General: cooperative, healthy appearing, comfortable, no acute distress, well developed, alert and awake Orientation/consciousness: patient oriented x3 Limitations: no limitations HEENT Head: Yes normal to inspection, Yes normocephalic and Yes atraumatic Ears: hearing grossly normal bilaterally Eyes General: appearance normal, both eyes and all related structures Neck Neck: Yes normal visual inspection and Yes trachea midline Chest Chest palpation & inspection: normal inspection of the chest Resp Effort & Inspection: normal respiratory effort and able to speak in complete sentences Cardio Rate: regular rate GI Inspection: Yes normal to inspection General: Yes no CVA tenderness Back/Spine/Pelvis Back: no CVA tenderness Skin General skin exam: no rashes or lesions noted Neuro General: patient oriented x3 Extrem General: Yes normal to inspection Psych Appearance: grossly normal and well kempt Mental Status: mental status grossly normal Speech and movement: Normal speech and movement present and Clear speech present Affect: normal affect Attitude: cooperative Thought process: Normal thought process present Thought content: Normal thought content present Insight: Fair insight present (Psych) Judgement: Fair judgement present (Psych) Office Procedures Post Void Residual Post Residual Void Post Void Residual (PVR): 120 62197-Qkrk Void Residual by ultrasound Results AMB Urinalysis, Automated UA Leukoctes 0 Ambar/uL Last Edit by LoiLogael Painter on 04/05/23 15:01 UA Nitrite Negative Last Edit by [employer] EstherPoachIt on 04/05/23 15:01 UA Urobilinogen 0.2 mg/dL Last Edit by [employer] on 04/05/23 15:01 UA Protein 300 mg/dL Last Edit by [employer] on 04/05/23 15:01 UA pH 6.0 Last Edit by [employer] EstherPoachIt on 04/05/23 15:01 UA Blood 0 Tapan/uL Last Edit by [employer] on 04/05/23 15:01 UA Specific [place] 1.020 Last Edit by [employer] on 04/05/23 15:01 UA Ketone Negative Last Edit by Adelaida Painter on 04/05/23 15:01 UA Bilirubin 0 mg/dL Last Edit by Adelaida Painter on 04/05/23 15:01 UA Glucose 0 mg/dL Last Edit by Adelaida Painter on 04/05/23 15:01 Results Reviewed Results Reviewed: Laboratory Last Values Urine pH (Auto) 6.0 04/05/23 15:00 Specific [place] (Auto) 1.020 04/05/23 15:00 Urine Protein (Auto) 300 mg/dL 04/05/23 15:00 Glucose (UA)(Auto) 0 mg/dL 04/05/23 15:00 Urine Ketones (Auto) Negative 04/05/23 15:00 Urine Blood (Auto) 0 [place]apan/uL 04/05/23 15:00 Urine Nitrite (Auto) Negative 04/05/23 15:00 Urine Bilirubin (Auto) 0 mg/dL 04/05/23 15:00 Urine Urobilinogen (Auto) 0.2 mg/dL 04/05/23 15:00 Leukocyte Esterase (Auto) 0 Ambar/uL 04/05/23 15:00 Assessment & Plan Assessment & Plan (1) Nephrolithiasis: Comment: (09/2020 left-sided ureteroscopy, 11/2020 right-sided ureteroscopy) Code(s): N20.0 - Calculus of kidney (2) Urinary retention: Code(s): R33.9 - Retention of urine, unspecified (3) Incomplete bladder emptying: Code(s): R33.9 - Retention of urine, unspecified Plan In office urinalysis results reviewed with the patient today; as noted above. PVR 120 mL. Discussed at length potential causes for urinary retention as well as incomplete bladder emptying. Discussed obtaining retroperitoneal ultrasound for further assessment evaluation. Start Flomax as discussed and prescribed. Patient denies any bothersome urinary issues or concerns at this time. Discussed possible near future in office cystoscopy for further assessment evaluation if symptoms arise, and or worsen Discussed double voiding to assist with incomplete bladder emptying. Discussed attempting to void sitting to assist with incomplete bladder emptying and relaxing pelvis. Follow-up in 3 months with imaging to be completed prior and PVR at next office visit; or sooner with any issues, concerns, and or questions. Orders: Orders AMB Urinalysis Automated 04/05/23 Z13.9 - Encounter for screening, unspecified AMB Post Void Residual by ultrasound 04/05/23 Z13.9 - Encounter for screening, unspecified US retroperitoneal comp 04/05/23 N20.0 - Calculus of kidney, R33.9 - Retention of urine, unspecified Medications: New tamsulosin (Flomax) 0.4 mg PO BEDTIME 90 caps 1RF 90 days Patient Instructions: The patient had an opportunity to ask questions regarding the treatment plan. All questions were answered. Physical exam, labs, and imaging were discussed and reviewed in detail. As well as risks, benefits, and discussion of treatment choices. No major barriers to understanding were identified. The patient expressed understanding and agreement with the above treatment plan. The patient was made aware they should contact our office by phone for worsening of their current condition, the appearance of new symptoms, or with any questions or concerns. Compliance is encouraged with any medications and follow up testing that is ordered. It is a privilege to be allowed the opportunity to participate in? your urological care.? Again, if you have any questions or concerns If you have any questions or concerns please do not hesitate to contact me. The office is [phone]. This note is constructed using voice recognition software. While every effort has been made to ensure accuracy equity director errors may have been included. Yours sincerely, MICHAEL Banks-LUCAS Coding Level of Care Code Est Pt Level 4 (51164) Diagnoses Nephrolithiasis N20.0 Urinary retention R33.9 Incomplete bladder emptying R33.9 CPT Codes Post Residual Void - PVR CPT Code: 63078-Kdox Void Residual by ultrasound ([id number])
== END 2023-04-05 15:34 | disposition home or self-care (01) ==
PROVIDERS: PCP Internal Medicine; Referring Provider Internal Medicine; Visit Provider Nurse Practitioner Family
DX: N20.0 Calculus of kidney (principal); R33.9 Retention of urine, unspecified
CPT/HCPCS: 99214

== ENCOUNTER → 2023-04-05 13:28 | Outpatient (BNVA) | payer OTHER, SELFPAY | PROVIDERS: PCP Internal Medicine; Visit Provider Urology | DX: N20.0 Calculus of kidney (principal); R33.9 Retention of urine, unspecified | CPT/HCPCS: 51798; 81003; 99212 ==

== ENCOUNTER 2023-05-22 10:12 | Outpatient (REF) | payer MEDICARE, SELFPAY ==
[2023-05-22 11:14] LABS: MANUAL DIFF FLAG NO
[2023-05-22 11:23] LABS: Basophils Percent Auto 0.2 % (0-2); Eosinophils Absolute Auto 0.1 X10*3/uL (0.0-0.4); Eosinophils Percent Auto 1.5 % (0-4); Hematocrit 30.6 % (42.0-52.0); Hemoglobin 10.3 g/dl (14.0-18.0); Imm Gran Abs Auto 0.01 X10*3/uL (0.00-0.03); Imm Gran Pct Auto 0.2 % (0.0-0.4); Mean Corpuscular HGB Conc 33.7 g/dl (31.0-36.0); Mean Corpuscular Hemoglobin 33.9 pg (27.0-33.0); Mean Corpuscular Volume 100.7 fL (80.0-98.0); Mean Platelet Volume 10.6 fL (9.4-12.4); Monocytes Absolute Auto 0.4 X10*3/uL (0.1-1.2); Monocytes Percent Auto 9.7 % (2-11); Neutrophils Percent Auto 65.4 % (45-73); Platelet Count 142 X10*3/uL (160-400); Red Blood Count 3.04 X10*6/uL (4.60-5.80); Red Cell Distribution Width 13.9 % (11.0-16.0); White Blood Count 4.5 X10*3/uL (4.8-10.8)
[2023-05-22 12:28] LABS: Alanine Aminotransferase 21 U/L (0-40); Albumin Level 3.6 g/dL (3.5-5.0); Alkaline Phosphatase 124 U/L (39-117); Anion Gap 11 (12-20); Aspartate Amino Transferase 26 U/L (5-37); Bilirubin Total 0.2 mg/dL (0.0-1.0); Blood Urea Nitrogen 28 mg/dL (9-16); Calcium 9.4 mg/dL (8.4-10.2); Carbon Dioxide 22 mmol/L (22-29); Chloride 107 mmol/L (96-108); Estimated Glomerular Filt Rate 49; Glucose Random 99 mg/dL (60-115); Potassium 3.9 mmol/L (3.3-5.1); Sodium 136 mmol/L (135-145); Total Protein 8.1 g/dL (6.5-8.0)
== END 2023-05-22 10:13 | disposition home or self-care (01) ==
LOC: HO.10HDL 10:12
PROVIDERS: Visit Provider Internal Medicine
DX: I25.10 Atherosclerotic heart disease of native coronary artery without angina pectoris (principal); I10 Essential (primary) hypertension; J44.9 Chronic obstructive pulmonary disease, unspecified; N18.9 Chronic kidney disease, unspecified; D64.9 Anemia, unspecified; Z95.1 Presence of aortocoronary bypass graft
CPT/HCPCS: 36415; 80053; 85025

== ENCOUNTER 2023-06-26 07:42 | Outpatient (REF) | payer OTHER, SELFPAY ==
--- NOTE | ~2023-06-26 | US_ITS ---
EXAMINATION: US RETROPERITONEAL COMPLETE (RENAL) CLINICAL INFORMATION: Calculus of kidney. COMPARISON: CT chest, abdomen and pelvis 02/16/2023. Renal ultrasound 05/27/2021 and 01/20/2021. X-ray KUB 11/16/2020 and 06/17/2019. TECHNIQUE: Real-time imaging of the kidneys and bladder. FINDINGS: RIGHT KIDNEY: 12.0 x 4.5 x 6.0 cm (SAG x AP x TRV). The kidney is normal in size, contour, and echogenicity. Renal cortical thickness is normal. No hydronephrosis. Lower pole 8 mm benign-appearing cysts. Midpole nonobstructing 6 mm stone. LEFT KIDNEY: 10.8 x 6.3 x 5.9 cm (SAG x AP x TRV). The kidney is normal in size, contour, and echogenicity. Renal cortical thickness is normal. No hydronephrosis. Benign-appearing cysts measuring up to 1.6 cm. Nonobstructing stones measuring up to 9 mm. BLADDER: Well distended and normal. Bilateral ureteral jets are demonstrated. Prevoid bladder volume is 346 mL. Postvoid bladder volume is 176 mL. US/US retroperitoneal comp IMPRESSION: * Large postvoid residual of 176 mL. * Bilateral benign-appearing renal cysts. Followup imaging is not routinely recommended for benign appearing cysts. Nonobstructing bilateral renal stones.
== END 2023-06-26 07:43 | disposition home or self-care (01) ==
LOC: HO.US 07:42
PROVIDERS: PCP Internal Medicine; Visit Provider Nurse Practitioner Family
DX: N20.0 Calculus of kidney (principal); R33.9 Retention of urine, unspecified
CPT/HCPCS: 76770

== ENCOUNTER 2023-07-05 09:05 | Outpatient (AMB) | payer OTHER, SELFPAY ==
--- NOTE | 2023-07-05 09:14 | MHC.OFFVIS ---
Intake Intake Visit Reasons: 3 months f/up/US(set) Intake Note: Patient presents for initial visit for retention and incomplete bladder emptying Urology Medications: tamsulosin, Vitamin B6 Blood Thinner: aspirin PVR: 0ml's Medication Administration Professional Required: No Accompanied by: Self / Same As Patient Allergies No Known Allergies [No Known Allergies*] Allergy (Verified 07/05/23 09:42) Medication List - Last Reconciled 07/05/23 by KIMMY BanksP- albuterol sulfate 90 mcg/actuation 2 puffs inhalation Q4-6H PRN allopurinol 100 mg PO DAILY 90 days amlodipine 10 mg PO BEDTIME ascorbate calcium (vitamin C) 500 mg PO DAILY atorvastatin 80 mg PO BEDTIME 90 days calcium lactate 100 mg PO TID cholecalciferol (vitamin D3) 25 mcg PO DAILY clobetasol 0.05% 1 appl topical BID PRN 90 days diphenhydramine HCl 25 mg PO BEDTIME PRN ferrous sulfate 324 mg PO DAILY folic acid 1 mg PO DAILY loratadine (Allergy Relief (loratadine)) 10 mg PO DAILY metoprolol succinate ER 25 mg PO BID multivitamin 1 tab PO DAILY pyridoxine (vitamin B6) 100 mg PO DAILY 90 days tamsulosin (Flomax) 0.4 mg PO BEDTIME 90 days HPI HPI Comments History of Present Illness Details Laron Faria is a very pleasant 78 year old male patient of Dr. Goel. He has a PMH of lung cancer diagnosed in 06/01 status post chemotherapy, carotid artery stenosis, history of CABG in 2018, pneumonia, daily smoker, hypertension, NSVT, CHF, COPD, anemia, nephrolithiasis, and hypercholestermia. He presents to the office today for a follow up of his urinary retention. Of note, patient was seen approximately 3 months ago at which time a retroperitoneal ultrasound was ordered for further assessment evaluation. These results reviewed with the patient today. Right kidney with no hydronephrosis. Left lower 8 mm benign-appearing cysts. Mid pole nonobstructing 6 mm stone. Left kidney with benign-appearing cysts measuring up to 1.6 cm. No hydronephrosis. Nonobstructing stones measuring up to 9mm. The bladder is well distended and normal. Bilateral ureteral jets are demonstrated. Pre void bladder volume is approximately 350 mL. Postvoid bladder volume is approximately 175 mL. During last office visit patient was started on Flomax and feels this has been helpful and feelings of incomplete bladder emptying he had been experiencing. In office urinalysis results reviewed with the patient today. PVR 0ml's when asked he denies any bothersome urinary issues or concerns. He denies urinary urgency, urinary frequency, incontinence, nocturia, hematuria, dysuria, foul smelling urine, changes to urinary stream, flank pain, fever, and or chills. He is happy with his current voiding parameters. He otherwise offers no other issues or concerns at this time. [facility] Medical History HTN (hypertension) COVID-19 virus infection NSVT (nonsustained ventricular tachycardia) CHF (congestive heart failure) Cigarette smoker Pneumothorax after biopsy (~2021) COPD (chronic obstructive pulmonary disease) Anemia Carotid artery occlusion Coronary artery disease Kidney stone High cholesterol Surgical History History of bronchoscopy (~2021) History of chest tube placement (~2021) History of esophagogastroduodenoscopy (EGD) (~2020) History of lung biopsy (~2021) History of colonoscopy (~2020) History of cystoscopy (~2020) History of CEA (carotid endarterectomy) (~2018) History of lithotripsy (~2002) Hx of CABG (~2018) Family History Father Bone cancer Other No family history of coronary artery disease Social History Household Members: None Housing: House Do you presently have visiting nurse or other home services: Yes (previously had home services) Alcohol intake: former Comment: patient refused alarm Patient Tobacco Use Status: Current everyday Tobacco user Tobacco use type: Cigarette Cigarette Packs Per Day: 0.5 Cigarettes Per Day: 6 Years Smoked: 60 e-Cigarette/Vaping Use: Never Used Second Hand Smoke Exposure: No Advance Directives Date on File: 10/12/21 service: Yes Current occupational status: retired Review of Systems Const Reports as per HPI Eyes Reports no additional complaints ENT Reports no additional complaints Card Reports as per HPI Resp Reports as per HPI GI Reports no additional complaints Reports as per HPI Musc Reports as per HPI Neuro Reports as per HPI Psych Reports no additional complaints Endo Reports no additional complaints Poncho/Lymph Reports as per HPI Physical Exam Const General: cooperative, healthy appearing, comfortable, no acute distress, well developed, alert and awake Orientation/consciousness: patient oriented x3 Limitations: no limitations HEENT Head: Yes normal to inspection, Yes normocephalic and Yes atraumatic Ears: hearing grossly normal bilaterally Eyes General: appearance normal, both eyes and all related structures Neck Neck: Yes normal visual inspection and Yes trachea midline Chest Chest palpation & inspection: normal inspection of the chest Resp Effort & Inspection: normal respiratory effort and able to speak in complete sentences Cardio Rate: regular rate GI Inspection: Yes normal to inspection General: Yes no CVA tenderness Back/Spine/Pelvis Back: no CVA tenderness Skin General skin exam: no rashes or lesions noted Neuro General: patient oriented x3 Extrem General: Yes normal to inspection Psych Appearance: grossly normal and well kempt Mental Status: mental status grossly normal Speech and movement: Normal speech and movement present and Clear speech present Affect: normal affect Attitude: cooperative Thought process: Normal thought process present Thought content: Normal thought content present Insight: Fair insight present (Psych) Judgement: Fair judgement present (Psych) Office Procedures Post Void Residual Post Residual Void Post Void Residual (PVR): 0 [id number]-[id number] Void Residual by ultrasound Results AMB Urinalysis, Automated UA Leukoctes 0 Ambar/uL Last Edit by VernSonicogael Painter on 07/05/23 09:32 UA Nitrite Negative Last Edit by [employer]owl on 07/05/23 09:32 UA Urobilinogen 0.2 mg/dL Last Edit by [employer] on 07/05/23 09:32 UA Protein 300 mg/dL Last Edit by [employer] on 07/05/23 09:32 UA pH 6.0 Last Edit by [employer] on 07/05/23 09:32 UA Blood 0 Tapan/uL Last Edit by [employer] on 07/05/23 09:32 UA Specific [place] 1.015 Last Edit by [employer] on 07/05/23 09:32 UA Ketone Negative Last Edit by [employer] on 07/05/23 09:32 UA Bilirubin 0 mg/dL Last Edit by [employer] on 07/05/23 09:32 UA Glucose 0 mg/dL Last Edit by Adelaida Painter on 07/05/23 09:32 Results Reviewed Results Reviewed: Laboratory Last Values Urine pH (Auto) 6.0 07/05/23 09:21 Specific [place] (Auto) 1.015 07/05/23 09:21 Urine Protein (Auto) 300 mg/dL 07/05/23 09:21 Glucose (UA)(Auto) 0 mg/dL 07/05/23 09:21 Urine Ketones (Auto) Negative 07/05/23 09:21 Urine Blood (Auto) 0 [place]/uL 07/05/23 09:21 Urine Nitrite (Auto) Negative 07/05/23 09:21 Urine Bilirubin (Auto) 0 mg/dL 07/05/23 09:21 Urine Urobilinogen (Auto) 0.2 mg/dL 07/05/23 09:21 Leukocyte Esterase (Auto) 0 Ambar/uL 07/05/23 09:21 Date of Service: 06/26/23 EXAMINATION: US RETROPERITONEAL COMPLETE (RENAL) FINDINGS: RIGHT KIDNEY: 12.0 x 4.5 x 6.0 cm (SAG x AP x TRV). The kidney is normal in size, contour, and echogenicity. Renal cortical thickness is normal. No hydronephrosis. Lower pole 8 mm benign-appearing cysts. Midpole nonobstructing 6 mm stone. LEFT KIDNEY: 10.8 x 6.3 x 5.9 cm (SAG x AP x TRV). The kidney is normal in size, contour, and echogenicity. Renal cortical thickness is normal. No hydronephrosis. Benign-appearing cysts measuring up to 1.6 cm. Nonobstructing stones measuring up to 9 mm. BLADDER: Well distended and normal. Bilateral ureteral jets are demonstrated. Prevoid bladder volume is 346 mL. Postvoid bladder volume is 176 mL. IMPRESSION: * Large postvoid residual of 176 mL. * Bilateral benign-appearing renal cysts. Followup imaging is not routinely recommended for benign appearing cysts. Nonobstructing bilateral renal stones. Assessment & Plan Assessment & Plan (1) Incomplete bladder emptying: Code(s): R33.9 - Retention of urine, unspecified (2) Nephrolithiasis: Comment: (09/2020 left-sided ureteroscopy, 11/2020 right-sided ureteroscopy) Code(s): N20.0 - Calculus of kidney (3) Renal cyst: Code(s): N28.1 - Cyst of kidney, acquired Plan In office urinalysis results reviewed with the patient today; as noted above; discussed proteinuria with referral to Nephrology however patient declines at this time. PVR 0 mL. Recent retroperitoneal ultrasound results reviewed with the patient today; as noted above. Discussed further surgical intervention regarding nephrolithiasis and increased stone burden versus surveillance monitoring; risks and benefits of these interventions were discussed at length. Patient reports be happy with current voiding parameters on 0.4 mg of Flomax daily. Discussed metabolic workup for nephrolithiasis 24 hour urine collection and labs; however patient declines at this time. Continue Flomax as discussed and prescribed; refill provided. Will obtain PSA in 6 months Follow-up in 6 months with lab to be completed prior; or sooner with any issues, concerns, and or questions. Orders: Orders AMB Post Void Residual by ultrasound Today R33.9 - Retention of urine, unspecified AMB Urinalysis Automated Today Z13.9 - Encounter for screening, unspecified Prostate Specific Antigen 6 Months R33.9 - Retention of urine, unspecified Medications: Changed From clobetasol 0.05% 1 appl topical BID PRN RASH ON ARMS AND LEGS To clobetasol 0.05% 1 appl topical BID 90 days PRN 60 grams 3RF RASH ON ARMS AND LEGS Refilled tamsulosin (Flomax) 0.4 mg PO BEDTIME 90 days 90 caps 3RF Patient Instructions: The patient had an opportunity to ask questions regarding the treatment plan. All questions were answered. Physical exam, labs, and imaging were discussed and reviewed in detail. As well as risks, benefits, and discussion of treatment choices. No major barriers to understanding were identified. The patient expressed understanding and agreement with the above treatment plan. The patient was made aware they should contact our office by phone for worsening of their current condition, the appearance of new symptoms, or with any questions or concerns. Compliance is encouraged with any medications and follow up testing that is ordered. It is a privilege to be allowed the opportunity to participate in? your urological care.? Again, if you have any questions or concerns If you have any questions or concerns please do not hesitate to contact me. The office is [phone]. This note is constructed using voice recognition software. While every effort has been made to ensure accuracy hand hide stretcher errors may have been included. Yours sincerely, MICHAEL Banks-BC Coding Level of Care Code Est Pt Level 3 (55174) Diagnoses Incomplete bladder emptying R33.9 Nephrolithiasis N20.0 Renal cyst N28.1 CPT Codes Post Residual Void - PVR CPT Code: 38613-Uoql Void Residual by ultrasound ([id number])
== END 2023-07-05 09:45 | disposition home or self-care (01) ==
PROVIDERS: PCP Internal Medicine; Visit Provider Nurse Practitioner Family
DX: R33.9 Retention of urine, unspecified (principal); N20.0 Calculus of kidney; N28.1 Cyst of kidney, acquired
CPT/HCPCS: 99213

== ENCOUNTER → 2023-07-05 09:05 | Outpatient (BNVA) | payer OTHER, SELFPAY | PROVIDERS: PCP Internal Medicine; Visit Provider Nurse Practitioner Family | DX: R33.9 Retention of urine, unspecified (principal); N20.0 Calculus of kidney; N28.1 Cyst of kidney, acquired; Z79.899 Other long term (current) drug therapy | CPT/HCPCS: 51798; 81003; 99212 ==

== ENCOUNTER 2023-08-21 09:24 | Outpatient (REF) | payer MEDICARE, SELFPAY ==
[2023-08-21 09:51] LABS: MANUAL DIFF FLAG NO
[2023-08-21 10:27] LABS: Basophils Percent Auto 0.3 % (0-2); Eosinophils Absolute Auto 0.1 X10*3/uL (0.0-0.4); Eosinophils Percent Auto 1.8 % (0-4); Hemoglobin 10.6 g/dl (14.0-18.0); Imm Gran Abs Auto 0.01 X10*3/uL (0.00-0.03); Imm Gran Pct Auto 0.3 % (0.0-0.4); Lymphocytes Absolute Auto 0.9 X10*3/uL (1.2-4.9); Lymphocytes Percent Auto 24.5 % (20-40); Mean Corpuscular HGB Conc 34.2 g/dl (31.0-36.0); Mean Corpuscular Hemoglobin 34.1 pg (27.0-33.0); Mean Corpuscular Volume 99.7 fL (80.0-98.0); Mean Platelet Volume 10.9 fL (9.4-12.4); Monocytes Absolute Auto 0.4 X10*3/uL (0.1-1.2); Monocytes Percent Auto 9.1 % (2-11); Neutrophils Absolute Auto 2.5 x10*3/uL (2.0-8.3); Platelet Count 145 X10*3/uL (160-400); Red Blood Count 3.11 X10*6/uL (4.60-5.80); Red Cell Distribution Width 13.7 % (11.0-16.0); White Blood Count 3.8 X10*3/uL (4.8-10.8)
[2023-08-21 11:12] LABS: Alanine Aminotransferase 20 U/L (0-40); Albumin Level 3.6 g/dL (3.5-5.0); Alkaline Phosphatase 124 U/L (39-117); Anion Gap 12 (12-20); Aspartate Amino Transferase 25 U/L (5-37); Bilirubin Total 0.3 mg/dL (0.0-1.0); Blood Urea Nitrogen 25 mg/dL (9-16); Calcium 9.6 mg/dL (8.4-10.2); Carbon Dioxide 24 mmol/L (22-29); Chloride 108 mmol/L (96-108); Estimated Glomerular Filt Rate 48; Glucose Random 119 mg/dL (60-115); Potassium 4.2 mmol/L (3.3-5.1); Sodium 140 mmol/L (135-145); Total Protein 7.9 g/dL (6.5-8.0)
== END 2023-08-21 09:25 | disposition home or self-care (01) ==
LOC: HO.LAB 09:24
PROVIDERS: PCP Internal Medicine; Visit Provider Internal Medicine
DX: I10 Essential (primary) hypertension (principal); D64.9 Anemia, unspecified; M10.9 Gout, unspecified; J44.9 Chronic obstructive pulmonary disease, unspecified; I25.42 Coronary artery dissection; A04.72 Enterocolitis due to Clostridium difficile, not specified as recurrent
CPT/HCPCS: 36415; 80053; 84550; 85025

== ENCOUNTER 2023-10-02 09:42 | Outpatient (REF) | payer OTHER, SELFPAY ==
--- NOTE | ~2023-10-02 | US_ITS ---
EXAMINATION: US EXTRACRANIAL CAROTID DUPLEX, BILATERAL CLINICAL INFORMATION: Occlusion and stenosis of bilateral carotid arteries COMPARISON: Carotid ultrasound 09/14/2022 TECHNIQUE: Real-time ultrasound and Doppler techniques (integrating B-mode 2-D vascular images, Doppler spectral analysis and color-flow Doppler imaging) were utilized to interrogate the extracranial carotid arteries, the vertebral arteries and proximal subclavian arteries bilaterally. The degree of stenosis is determined by criteria similar to NASCET. FINDINGS: Right Side: 1. There is mild atherosclerotic plaque seen in the bifurcation/proximal ICA region. 2. The common carotid artery PSV proximally is 47 cm/s and distally 97 cm/s. 3. The proximal internal carotid artery velocities are 104 cm/s systolic and 15 cm/s diastolic. 4. The proximal external carotid artery PSV is 98 cm/s. 5. The vertebral artery shows antegrade flow. 6. The subclavian artery waveforms are normal. Left Side: 1. There is moderate atherosclerotic plaque seen in the bifurcation/proximal ICA region. 2. The common carotid artery PSV proximally is 58 cm/s and distally 98 cm/s. 3. The proximal internal carotid artery velocities are 247 cm/s systolic and 30 cm/s diastolic. 4. The proximal external carotid artery PSV is 234 cm/s. 5. The vertebral artery shows antegrade flow. 6. The subclavian artery waveforms are normal. US/US carotid duplex BI IMPRESSION: 1. RIGHT: Minimal, non-hemodynamically significant stenosis of the proximal right internal carotid artery corresponding to a 0-49% stenosis by velocity criteria. 2. LEFT: Moderate, hemodynamically significant stenosis of the proximal left internal carotid artery corresponding to a 50-79% stenosis by velocity criteria. 3. There is no change in the category severity of disease when compared to the previous study dated 09/14/2022.
== END 2023-10-02 09:43 | disposition home or self-care (01) ==
LOC: HO.US 09:42
PROVIDERS: PCP Internal Medicine; Visit Provider Surgery Vascular Surgery
DX: I65.23 Occlusion and stenosis of bilateral carotid arteries (principal)
CPT/HCPCS: 93880

== ENCOUNTER 2023-10-26 08:29 | Outpatient (AMB) | payer OTHER, SELFPAY ==
[2023-10-26 08:55] VITALS: BP 108/68; BMI 21.9
--- NOTE | 2023-10-26 08:55 | MHC.OFFVIS ---
Vital Signs 10/26/23 08:55 Height 5 ft 9 in Weight 148 lb BMI 21.9 BP 108/68 Blood Pressure Location Lt brachial Position Sitting Intake Visit Reasons: 1 yr follow up carotid US 10/02/23 Intake Note: 1 yr follow up carotid US 10/02/23 w/ hx of Right CEA 12/04/23. Pt states no complaints today. Pt states he has had a lobectomy and chemo which causes weakness. Accompanied by: Self / Same As Patient Allergies No Known Allergies [No Known Allergies*] Allergy (Verified 10/26/23 08:57) HPI HPI 1 yr follow up carotid US 10/02/23: Details: Very pleasant 78-year-old gentleman presents for routine carotid surveillance. He had undergone right carotid endarterectomy with us back in 2019. He has been doing fairly well. 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 More recently he had a cerebral bleed which has been followed by Dr. Benavides and he reports that is been stable. Been off all anticoagulants secondary to this. Is being maintained on high-dose statin at the current time. Now presents for routine follow-up. In terms of his carotids he is asymptomatic he denies any lateralizing signs or symptoms, visual disturbances and speech disturbances. [facility] Medical History HTN (hypertension) COVID-19 virus infection NSVT (nonsustained ventricular tachycardia) CHF (congestive heart failure) Cigarette smoker Pneumothorax after biopsy (~2021) COPD (chronic obstructive pulmonary disease) Anemia Carotid artery occlusion Coronary artery disease Kidney stone High cholesterol Surgical History History of bronchoscopy (~2021) History of chest tube placement (~2021) History of esophagogastroduodenoscopy (EGD) (~2020) History of lung biopsy (~2021) History of colonoscopy (~2020) History of cystoscopy (~2020) History of CEA (carotid endarterectomy) (~2018) History of lithotripsy (~2002) Hx of CABG (~2018) Family History Father Bone cancer Other No family history of coronary artery disease Social History Household Members: None Housing: House Do you presently have visiting nurse or other home services: Yes (previously had home services) Alcohol intake: former Comment: patient refused alarm Patient Tobacco Use Status: Current everyday Tobacco user Tobacco use type: Cigarette Cigarette Packs Per Day: 0.5 Cigarettes Per Day: 6 Years Smoked: 60 e-Cigarette/Vaping Use: Never Used Second Hand Smoke Exposure: No Advance Directives Date on File: 10/12/21 service: Yes Current occupational status: retired Review of Systems Const All systems reviewed & are unremarkable except as noted in HPI and below Reports no additional complaints ENT Reports Normal hearing present Card Denies chest pain, Denies chest pain at rest, Denies chest pain with activity and Denies pedal edema Resp Denies cough GI Denies abdominal pain Musc Denies abnormal gait, Denies muscle cramps and Denies radiating pain into limb Skin/Breast Denies skin ulcer and Denies wounds Neuro Reports Normal hearing present and Denies abnormal gait Psych Reports no additional complaints Physical Exam Vital Signs: Last Vital Signs BP 108/68 10/26/23 08:55 BMI result Body Mass Index 21.9 Const General: cooperative, healthy appearing and comfortable Orientation/consciousness: oriented to person, oriented to place and oriented to time HEENT Head: Yes normal to inspection Neck Neck: Yes normal visual inspection Carotids: no bruits Chest Chest palpation & inspection: normal inspection of the chest Resp Effort & Inspection: normal respiratory effort and able to speak in complete sentences Auscultation: clear to auscultation bilaterally, no crackles, no rales, no rhonchi and no wheezes Cardio Rate: regular rate Rhythm: regular rhythm Heart sounds: S1 normal heart sound present and S2 normal heart sound present Bruits: no carotid bruits Peripheral pulses: Peripheral pulses 2+ throughout GI Inspection: Yes normal to inspection Skin Wounds: no wounds Hair: normal Neuro General: oriented to person, oriented to place and oriented to time Cranial nerves: Yes CN's II-XII intact bilaterally and Yes Normal hearing present Cognition (Neuro): normal cognition Motor exam (neuro): 5/5 motor strength present throughout Extrem Other: venous exam: No significant superficial varicosities or spider telangiectasias, minimal edema General: No clubbing, No cyanosis and No edema Psych Appearance: grossly normal Mental Status: mental status grossly normal Speech and movement: Normal speech and movement present Results Reviewed Results Reviewed: Noninvasive carotid testing dated 09/10/2023 demonstrates right-sided 0-49% and left side 50-79% with a peak systolic of 247. Written report and images were reviewed. Assessment & Plan Assessment & Plan (1) Carotid stenosis, bilateral: Comment: 12/03/2018- right carotid endarterectomy Code(s): I65.23 - Occlusion and stenosis of bilateral carotid arteries Category: Medical Plan: In short patient has asymptomatic carotid disease. We have reviewed signs and symptoms of a stroke. We also discussed risk factor modification inclusive a healthy diet low in cholesterol. The patient will follow up with us with surveillance ultrasound of the carotids 1 year. Should there be any changes or signs or symptoms of a stroke we will be happy to see them back sooner. Thank you for allowing us to participate in this patient's care. If there are any questions or concerns please do not hesitate to contact us. Orders: Orders US carotid duplex BI 1 Year I65.23 - Occlusion and stenosis of bilateral carotid arteries Coding Level of Care Code Est Pt Level 4 (97889) Diagnoses Carotid stenosis, bilateral I65.23
== END 2023-10-26 09:10 | disposition home or self-care (01) ==
PROVIDERS: PCP Internal Medicine; Visit Provider Surgery Vascular Surgery
DX: I65.23 Occlusion and stenosis of bilateral carotid arteries (principal)
CPT/HCPCS: 99214

== ENCOUNTER → 2023-10-26 08:29 | Outpatient (BNVA) | payer OTHER, SELFPAY | PROVIDERS: PCP Internal Medicine; Visit Provider Surgery Vascular Surgery | DX: I65.23 Occlusion and stenosis of bilateral carotid arteries (principal) | CPT/HCPCS: 99212 ==

== ENCOUNTER 2023-11-27 09:46 | Outpatient (REF) | payer OTHER, SELFPAY ==
[2023-11-27 10:36] LABS: MANUAL DIFF FLAG NO
[2023-11-27 10:45] LABS: Basophils Percent Auto 0.3 % (0-2); Eosinophils Absolute Auto 0.1 X10*3/uL (0.0-0.4); Eosinophils Percent Auto 1.7 % (0-4); Hematocrit 31.4 % (42.0-52.0); Hemoglobin 10.7 g/dl (14.0-18.0); Imm Gran Abs Auto 0.01 X10*3/uL (0.00-0.03); Imm Gran Pct Auto 0.3 % (0.0-0.4); Lymphocytes Absolute Auto 0.8 X10*3/uL (1.2-4.9); Lymphocytes Percent Auto 23.5 % (20-40); Mean Corpuscular HGB Conc 34.1 g/dl (31.0-36.0); Mean Corpuscular Hemoglobin 35.1 pg (27.0-33.0); Mean Platelet Volume 10.8 fL (9.4-12.4); Monocytes Absolute Auto 0.3 X10*3/uL (0.1-1.2); Monocytes Percent Auto 9.1 % (2-11); Neutrophils Absolute Auto 2.3 x10*3/uL (2.0-8.3); Neutrophils Percent Auto 65.1 % (45-73); Platelet Count 152 X10*3/uL (160-400); Red Blood Count 3.05 X10*6/uL (4.60-5.80); Red Cell Distribution Width 13.9 % (11.0-16.0); White Blood Count 3.5 X10*3/uL (4.8-10.8)
[2023-11-27 11:17] LABS: Alanine Aminotransferase 22 U/L (0-40); Albumin Level 3.6 g/dL (3.5-5.0); Alkaline Phosphatase 125 U/L (39-117); Anion Gap 13 (12-20); Aspartate Amino Transferase 26 U/L (5-37); Bilirubin Total 0.3 mg/dL (0.0-1.0); Blood Urea Nitrogen 26 mg/dL (9-16); Calcium 9.5 mg/dL (8.4-10.2); Carbon Dioxide 21 mmol/L (22-29); Chloride 107 mmol/L (96-108); Estimated Glomerular Filt Rate 47; Glucose Random 106 mg/dL (60-115); Sodium 137 mmol/L (135-145); Total Protein 7.8 g/dL (6.5-8.0)
== END 2023-11-27 09:47 | disposition home or self-care (01) ==
LOC: HO.10HDL 09:46
PROVIDERS: Visit Provider Internal Medicine
DX: D64.9 Anemia, unspecified (principal); I12.9 Hypertensive chronic kidney disease with stage 1 through stage 4 chronic kidney disease, or unspecified chronic kidney disease; N18.9 Chronic kidney disease, unspecified; J44.9 Chronic obstructive pulmonary disease, unspecified
CPT/HCPCS: 36415; 80053; 85025

== ENCOUNTER 2024-01-03 09:10 | Outpatient (AMB) | payer OTHER, SELFPAY ==
--- NOTE | 2024-01-03 09:30 | A.OFFVIS_ITS ---
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 Maintenance Required: No Accompanied by: Self / Same As Patient Allergies No Known Allergies [No Known Allergies*] Allergy (Verified 01/03/24 09:44) Medication List - Last Reconciled 01/03/24 by HAYLEE Banks albuterol sulfate 90 mcg/actuation 2 puffs inhalation Q4-6H PRN allopurinol 100 mg PO DAILY 90 days amlodipine 10 mg PO BEDTIME ascorbate calcium (vitamin C) 500 mg PO DAILY atorvastatin 80 mg PO BEDTIME 90 days calcium lactate 100 mg PO TID cholecalciferol (vitamin D3) 25 mcg PO DAILY clobetasol 0.05% 1 appl topical BID PRN 90 days diphenhydramine HCl 25 mg PO BEDTIME PRN ferrous sulfate 324 mg PO DAILY folic acid 1 mg PO DAILY loratadine (Allergy Relief (loratadine)) 10 mg PO DAILY metoprolol succinate ER 25 mg PO BID multivitamin 1 tab PO DAILY pyridoxine (vitamin B6) 100 mg PO DAILY 90 days tamsulosin (Flomax) 0.4 mg PO BEDTIME 90 days HPI Comments Details: Laron Faria is a very pleasant 78 year old male patient of Dr. Goel. He has a PMH of lung cancer diagnosed in 06/01 status post chemotherapy, carotid artery stenosis, history of CABG in 2019, pneumonia, daily smoker, hypertension, NSVT, CHF, COPD, anemia, nephrolithiasis, and hypercholestermia. He presents to the office today for a follow up of his urinary retention, renal cysts, and nephrolithiasis. In discussion with the patient today reports since his last office visit here approximately 1 year ago he has been doing and feeling well. He reports no bothersome urinary issues or concerns. He reports compliance with Flomax and vitamin B6 as prescribed. Unable to perform urine for urinalysis however PVR today 23 mL. He reports noting issues with his ability to perform ADLs since his lobectomy however is following up with pulmonology as well as both of [facility] as well as Dr. Goel. He denies urinary urgency, urinary frequency, incontinence, nocturia, hematuria, dysuria, foul smelling urine, changes to urinary stream, flank pain, fever, and or chills. He is happy with his current voiding parameters. Lab was ordered prior to today's appointment however patient did not have this performed. Discussed importance in doing so. He otherwise offers no other issues or concerns at this time. COUNT INCLUDES [facility] Medical History HTN (hypertension) COVID-19 virus infection NSVT (nonsustained ventricular tachycardia) CHF (congestive heart failure) Cigarette smoker Pneumothorax after biopsy (~2021) COPD (chronic obstructive pulmonary disease) Anemia Carotid artery occlusion Coronary artery disease Kidney stone High cholesterol Surgical History History of bronchoscopy (~2021) History of chest tube placement (~2021) History of esophagogastroduodenoscopy (EGD) (~2020) History of lung biopsy (~2021) History of colonoscopy (~2020) History of cystoscopy (~2020) History of CEA (carotid endarterectomy) (~2018) History of lithotripsy (~2002) Hx of CABG (~2018) Family History Father Bone cancer Other No family history of coronary artery disease Social History Household Members: None Housing: House Do you presently have visiting nurse or other home services: Yes (previously had home services) Alcohol intake: former Comment: patient refused alarm Patient Tobacco Use Status: Current everyday Tobacco user Tobacco use type: Cigarette Cigarette Packs Per Day: 0.5 Cigarettes Per Day: 6 Years Smoked: 60 e-Cigarette/Vaping Use: Never Used Second Hand Smoke Exposure: No Advance Directives Date on File: 10/12/21 service: Yes Current occupational status: retired Review of Systems Const Reports as per HPI Eyes Reports no additional complaints ENT Reports no additional complaints Card Reports as per HPI Resp Reports as per HPI GI Reports no additional complaints Reports as per HPI Musc Reports as per HPI Neuro Reports as per HPI Psych Reports no additional complaints Endo Reports no additional complaints Poncho/Lymph Reports as per HPI Physical Exam Const General: cooperative, healthy appearing, comfortable, no acute distress, well developed, alert and awake Orientation/consciousness: patient oriented x3 Limitations: no limitations HEENT Head: Yes normal to inspection, Yes normocephalic and Yes atraumatic Ears: hearing grossly normal bilaterally Eyes General: appearance normal, both eyes and all related structures Neck Neck: Yes normal visual inspection and Yes trachea midline Chest Chest palpation & inspection: normal inspection of the chest Resp Effort & Inspection: normal respiratory effort and able to speak in complete sentences Cardio Rate: regular rate GI Inspection: Yes normal to inspection General: Yes no CVA tenderness Back/Spine/Pelvis Back: no CVA tenderness Skin General skin exam: no rashes or lesions noted Neuro General: patient oriented x3 Extrem General: Yes normal to inspection Psych Appearance: grossly normal and well kempt Mental Status: mental status grossly normal Speech and movement: Normal speech and movement present and Clear speech present Affect: normal affect Attitude: cooperative Thought process: Normal thought process present Thought content: Normal thought content present Insight: Fair insight present (Psych) Judgement: Fair judgement present (Psych) Office Procedures Post Void Residual Post Residual Void Post Void Residual (PVR): 23 [id number] Void Residual by ultrasound Assessment & Plan Assessment & Plan (1) Incomplete bladder emptying: Code(s): R33.9 - Retention of urine, unspecified Category: Medical (2) Nephrolithiasis: Comment: (09/2020 left-sided ureteroscopy, 11/2020 right-sided ureteroscopy) Code(s): N20.0 - Calculus of kidney Category: Medical (3) Renal cyst: Code(s): N28.1 - Cyst of kidney, acquired Category: Medical Plan Unable to obtain urine for urinalysis however PVR 23 mL. Discussed importance of obtaining labs as ordered. He currently denies any bothersome urinary issues or concerns. Patient reports be happy with current voiding parameters on 0.4 mg of Flomax daily. Will obtain PSA in 1 year. Will obtain renal ultrasound for surveillance monitoring of renal cyst as well as nephrolithiasis. Follow-up in 1 year with imaging and labs to be completed prior; or sooner with any issues, concerns, and or questions. Orders: Orders AMB Post Void Residual by ultrasound Today R33.9 - Retention of urine, unspecified Prostate Specific Antigen 1 Year N40.0 - Benign prostatic hyperplasia without lower urinary tract symptoms US renal BI 1 Year N20.0 - Calculus of kidney Patient Instructions: The patient had an opportunity to ask questions regarding the treatment plan. All questions were answered. Physical exam, labs, and imaging were discussed and reviewed in detail. As well as risks, benefits, and discussion of treatment choices. No major barriers to understanding were identified. The patient expressed understanding and agreement with the above treatment plan. The patient was made aware they should contact our office by phone for worsening of their current condition, the appearance of new symptoms, or with any questions or concerns. Compliance is encouraged with any medications and follow up testing that is ordered. It is a privilege to be allowed the opportunity to participate in? your urological care.? Again, if you have any questions or concerns If you have any questions or concerns please do not hesitate to contact me. The office is [phone]. This note is constructed using voice recognition software. While every effort has been made to ensure accuracy shearer helper errors may have been included. Yours sincerely, HAYLEE Banks Coding Level of Care Code Est Pt Level 3 (32154) Complex EM visit Add On G2211 Diagnoses Incomplete bladder emptying R33.9 Nephrolithiasis N20.0 Renal cyst N28.1 CPT Codes Post Residual Void - PVR CPT Code: 74343-Otaw Void Residual by ultrasound ([id number])
== END 2024-01-03 09:43 | disposition home or self-care (01) ==
LOC: HO.HUSH 09:10
PROVIDERS: PCP Internal Medicine; Visit Provider Nurse Practitioner Family
DX: R33.9 Retention of urine, unspecified (principal); N20.0 Calculus of kidney; N28.1 Cyst of kidney, acquired
CPT/HCPCS: 99213; G2211

== ENCOUNTER → 2024-01-03 09:10 | Outpatient (BNVA) | payer OTHER, SELFPAY | PROVIDERS: PCP Internal Medicine; Visit Provider Nurse Practitioner Family | DX: R33.9 Retention of urine, unspecified (principal); N20.0 Calculus of kidney; N28.1 Cyst of kidney, acquired | CPT/HCPCS: 51798; 99212 ==

== ENCOUNTER 2024-04-04 08:30 | Outpatient (AMB) | payer OTHER, SELFPAY ==
--- NOTE | 2024-04-04 08:45 | MHC.OFFVIS ---
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: No Allergies No Known Allergies [No Known Allergies*] Allergy (Verified 01/03/24 09:44) Medication List - Last Reconciled 04/04/24 by Yayo Smith MD albuterol sulfate 90 mcg/actuation 2 puffs inhalation Q4-6H PRN allopurinol 100 mg PO DAILY 90 days amlodipine 10 mg PO BEDTIME ascorbate calcium (vitamin C) 500 mg PO DAILY atorvastatin 80 mg PO BEDTIME 90 days calcium lactate 100 mg PO TID cholecalciferol (vitamin D3) 25 mcg PO DAILY clobetasol 0.05% 1 appl topical BID PRN 90 days diphenhydramine HCl 25 mg PO BEDTIME PRN ferrous sulfate 324 mg PO DAILY folic acid 1 mg PO DAILY loratadine (Allergy Relief (loratadine)) 10 mg PO DAILY metoprolol succinate ER 50 mg PO BID multivitamin 1 tab PO DAILY pyridoxine (vitamin B6) 100 mg PO DAILY 90 days tamsulosin (Flomax) 0.4 mg PO BEDTIME 90 days HPI Comments Details: Bienvenido comes for follow-up. Patient denies any significant cardiovascular symptoms. Was admitted in January with a fall after he had a COVID shot. Workup at [facility] including echocardiogram showed low normal LV ejection fraction and carotid disease she was stable. He denies any syncopal episode during that time. No lightheadedness. He denies any exertional chest pain. No worsening exertional shortness of breath. Denies any prolonged palpitation irregular. Been no orthopnea, PND, leg edema. Taking all his medications. No recent lipid panel. Unfortunately continues to smoke. [facility] Medical History HTN (hypertension) COVID-19 virus infection NSVT (nonsustained ventricular tachycardia) CHF (congestive heart failure) Cigarette smoker Pneumothorax after biopsy (~2021) COPD (chronic obstructive pulmonary disease) Anemia Carotid artery occlusion Coronary artery disease Kidney stone High cholesterol Surgical History History of bronchoscopy (~2021) History of chest tube placement (~2021) History of esophagogastroduodenoscopy (EGD) (~2020) History of lung biopsy (~2021) History of colonoscopy (~2020) History of cystoscopy (~2020) History of CEA (carotid endarterectomy) (~2018) History of lithotripsy (~2002) Hx of CABG (~2018) Family History Father Bone cancer Other No family history of coronary artery disease Social History Household Members: None Housing: House Do you presently have visiting nurse or other home services: Yes (previously had home services) Alcohol intake: former Comment: patient refused alarm Patient Tobacco Use Status: Current everyday Tobacco user Tobacco use type: Cigarette Cigarette Packs Per Day: 0.5 Cigarettes Per Day: 6 Years Smoked: 60 e-Cigarette/Vaping Use: Never Used Second Hand Smoke Exposure: No Advance Directives Date on File: 10/12/21 service: Yes Current occupational status: retired Review of Systems Const Denies chills, Denies fatigue, Denies fever(s), Denies frequent falls, Denies weakness, Denies weight gain and Denies weight loss ENT Denies dizziness Card Denies chest pain, Denies leg edema, Denies lightheadedness, Denies palpitations, Denies dyspnea, Denies dyspnea on exertion, Denies orthopnea and Denies other (loss of consciousness) Resp Denies cough, Denies dyspnea and Denies dyspnea on exertion GI Denies hematochezia and Denies change in stool character Musc Denies abnormal gait, Denies muscle weakness, Denies numbness, Denies radiating pain into limb and Denies tingling Neuro Denies abnormal gait, Denies dizziness, Denies frequent falls, Denies numbness, Denies tingling and Denies weakness Endo Denies fatigue and Denies palpitations Physical Exam Vital Signs: Last Vital Signs Pulse 70 04/04/24 08:46 BP 110/68 04/04/24 08:46 BMI result Body Mass Index 20.5 Const General: cooperative, comfortable, no acute distress, alert and awake Nutritional Appearance: underweight and other (Frail elderly man) Orientation/consciousness: patient oriented x3 Neck Neck: Yes trachea midline, Yes supple and Yes no JVD Resp Effort & Inspection: normal respiratory effort Auscultation: clear to auscultation bilaterally Cardio Jugular venous distension: no JVD Palpation: normal PMI Rate: regular rate Rhythm: regular rhythm Heart sounds: S1 normal heart sound present, S2 normal heart sound present, no click, no gallops, no murmurs and no rubs Peripheral pulses: other (Reduced bilateral distal pulses) GI Auscultation: normal bowel sounds Skin General skin exam: ecchymosis Rashes: rashes noted ( Diffuse) Neuro General: patient oriented x3 and no focal motor deficits Extrem General: Yes no clubbing, cyanosis or edema Psych Appearance: grossly normal Office Procedures EKG Details: EKG shows normal sinus rhythm with right bundle-branch block at 73 beats per minute, unchanged [id number], Complete Assessment & Plan Assessment & Plan (1) Coronary artery disease: Comment: (S/p CABG x 5 in 2019. Denies recent chest pain) Code(s): I25.10 - Atherosclerotic heart disease of [place] coronary artery without angina pectoris Category: Medical Plan: Stable CAD with coronary artery bypass grafting more than 5 years ago. He was asymptomatic at the time of coronary revascularization. Currently having no symptoms although will check for graft patency with myocardial perfusion imaging in 1 year's time. Also follow-up echocardiogram in 1 year's time. Recommend aggressive medical therapy. Continue lifelong aspirin therapy. Continue high-intensity statin therapy. Target goal LDL less than 70 mg/dL. Follow-up lipid panel in near future. Continue aggressive blood pressure control which on today's exam is well optimized. See below for management. Continue maintain activity level as tolerated. (2) HTN (hypertension): Code(s): I10 - Essential (primary) hypertension Category: Medical Plan: Hypertension with somewhat labile blood pressure. No recent symptoms of lightheadedness or orthostatic intolerance. Blood pressure is currently well optimized on dual therapy with metoprolol and amlodipine with recent increasing metoprolol. Encouraged to measure blood pressure at home maintain a log. Goal blood pressure less than 130/84. Low-salt diet was advised. Will follow up in the clinic in 1 year's time, sooner p.r.n.. Thank you for allowing me to partake in his care Orders: Orders Lipid Panel Today I25.10 - Atherosclerotic heart disease of [place] coronary artery without angina pectoris Coding Level of Care Code Est Pt Level 4 (10056) Complex EM visit Add On G2211 Diagnoses Coronary artery disease I25.10 HTN (hypertension) I10 CPT Codes EKG - CPT: 76000-[id number], Complete ([id number])
[2024-04-04 08:46] VITALS: BP 110/68; PULSE 70; BMI 20.5
--- OUTSIDE RECORDS SUMMARY | 2024-04-04 08:48 | XMS_ITS ---
Author Name [facility] Organization Unknown History of Medication Use Medication Directions Dispensed Refills Start Date End Date Stat us acetaminophen-codeine (TYLENOL #3) 300-30 MG per tablet Take 1 tablet by mouth every 4 (four) hours as needed. 04/12/2023 active calcium citrate (CALCITRATE) 950 (200 Ca) MG tablet 200 mg. 04/12/2023 active Vitamin E 400 units Tab Take by mouth. 04/12/2023 active aspirin enteric coated (ECOTRIN LOW STRENGTH) 81 MG EC tablet 1 tablet (81 mg total). 04/12/2023 active diphenhydrAMINE HCl, Sleep, (NIGHT TIME SLEEP AID PO) Take by mouth nightly as needed. 04/12/2023 active albuterol (PROAIR RESPICLICK) 108 (90 Base) MCG/ACT inhaler Inhale. 04/12/2023 act yanely folic acid (FOLVITE) 1 MG tablet Take 1 tablet (1 mg total) by mouth daily. 04/12/2023 active amLODIPine (NORVASC) 10 MG tablet Take 1 tablet (10 mg total) by mouth daily. 02/22/2023 active Vitamin E 400 units Tab Take by mouth. 04/12/2023 active allopurinol (ZYLOPRIM) 100 mg tablet Take 1 tablet (100 mg total) by mouth daily. 02/22/2023 active ascorbic acid (VITAMIN C) 500 MG tablet Take 1 tablet (500 mg total) by mouth daily. 04/12/2023 active cholecalciferol (CHOLECALCIFEROL) 25 MCG (1000 UT) tablet Take 1 tablet (1,000 Units total) by mouth daily. 04/12/2023 active levETIRAcetam (KEPPRA) 500 MG tablet Take 1 tablet (500 mg total) by mouth 2 (two) times a day. 02/22/2023 active atorvastatin (LIPITOR) 80 MG tablet Take 1 tablet (80 mg total) by mouth nightly. 02/22/2023 active loratadine (CLARITIN) 10 MG tablet 1 tablet (10 mg total). 04/12/2023 active fluticasone (FloNASE) 50 mcg/spray nasal spray INSTILL 1 SPRAY INTO EACH NOSTRIL TWICE DAILY FOR NASAL IRRITATION/INFLAM MATION 04/12/2023 active metoPROLOL SUCCINATE (TOPROL-XL) 25 MG 24 hr tablet Take 1 tablet (25 mg total) by mouth 2 (two) times a day. 04/12/2023 active gadobutrol (GADAVIST) injection 6 mL 6 mL, Intravenous, Once in imaging, contrast, Starting on [place] 03/23/23 at 0938, For 1 dose, Radiology Appointment 03/27/2023 completed Problems Problem Status Onset Date Problem Type Date of Resoluti on Source Syncope and collapse active 2023-02-15 [facility]
--- OUTSIDE RECORDS SUMMARY | 2024-04-04 08:48 | XMS_ITS | Clinical Summary ---
Author Organization Unknown Care Team Providers Care Windows Systems Admin Name Role Phone ELVA MARQUEZ, BARRON Unavailable Unavailjamshid GARCIA RN, TOSHIA Unavailable Unavailable Payers Payer Name Policy Type Policy Number Effective Date Expira tion Date [place] - [place] [id number] Problems Condition Name Condition Details Condition Category Status Onset Date Resolution Date Last Treatment Date Treating Clinician Comments OTHER PNEUMONIA, UNSPECIFIED ORGANISM Active 04-10 00:00: 00 EMPHYSEMA, UNSPECIFIED Active 04-10 00:00: 00 MALIGNANT NEOPLASM OF UPPER LOBE, RIGHT BRONCHUS OR LUNG Active 04-10 00:00: 00 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 Active 04-10 00:00: 00 SECONDARY MALIGNANT NEOPLASM OF OTHER SPECIFIED SITES Active 04-10 00:00: 00 AFTERCARE FOLLOWING SURGERY FOR NEOPLASM Active 04-10 00:00: 00 UNSP INTESTNL OBST, UNSP TO PARTIAL VERSUS COMPLETE OBST Active 04-10 00:00: 00 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, 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 Active 04-10 00:00: 00 CHRONIC KIDNEY DISEASE, STAGE 3 UNSPECIFIED Active 04-10 00:00: 00 ANEMIA IN CHRONIC KIDNEY DISEASE Active 04-10 00:00: 00 ATHSCL HEART DISEASE OF [place] CORONARY ARTERY W/O ANG PCTRS Active 04-10 00:00: 00 ACUTE KIDNEY FAILURE, UNSPECIFIED Active 04-10 00:00: 00 CALCULUS OF KIDNEY Active 04-10 00:00: 00 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 Active 04-10 00:00: 00 GASTRITIS, UNSPECIFIED, WITHOUT BLEEDING Active 04-10 00:00: 00 CALCULUS OF GALLBLADDER 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 Active 04-10 00:00: 00 OTHER PANCYTOPENIA Active 04-10 00:00: 00 PURE HYPERCHOLEST EROLEMIA, UNSPECIFIED Active 04-10 00:00: 00 NICOTINE DEPENDENCE, CIGARETTES, UNCOMPLICATE D Active 04-10 00:00: 00 SNF (CURRENT) USE OF ASPIRIN Active 04-10 00:00: 00 PRESENCE OF CORONARY ANGIOPLASTY IMPLANT AND GRAFT Active 04-10 00:00: 00 PERSONAL HISTORY OF ANTINEOPLAST IC CHEMOTHERAPY Active 04-10 00:00: 00 PROBLEMS RELATED TO LIVING ALONE Active 04-10 00:00: 00 Allergies, Adverse Reactions, Alerts Allergy Name Allergy Type Status Severity Reaction(s) Onset Date Inactive Date Treating Clinician Comments NKA Propensity to adverse reactions Active 2021-09 19:29:1 6 Medications Ordered Medication Name Filled Medication Name Start Date Stop Date Current Medication? Ordering Clinician Indication Dosage Frequency Signature (SIG) Comments Components allopurinol 100 mg tablet 10-05 00:00: 00 Yes [id number] 1 tablet DAILY 1 tablet DAILY (route: oral) Med Classific ation: Gout and Hyperuric emia Therapy amlodipine 10 mg tablet 10-05 00:00: 00 Yes [id number] 1 tablet DAILY 1 tablet DAILY (route: oral) Med Classific ation: Cardiovas cular Therapy Agents Aspirin Childrens 81 mg chewable tablet 10-05 00:00: 00 Yes [id number] 1 tablet DAILY 1 tablet DAILY (route: oral) Med Classific ation: Hematolog ical Agents atorvastati n 10 mg tablet 10-05 00:00: 00 Yes [id number] 1 tablet DAILY 1 tablet DAILY (route: oral) Med Classific ation: Cardiovas cular Therapy Agents azithromyci n 500 mg tablet 10-05 00:00: 00 10-08 23:59 :00 No [id number] 1 tablet DAILY 1 tablet DAILY (route: oral) Med Classific ation: Anti-Infe ctive Agents cefpodoxime 200 mg tablet 10-05 00:00: 00 Yes [id number] 1 tablet 2 TIMES DAILY 1 tablet 2 TIMES DAILY (route: oral) Med Classific ation: Anti-Infe ctive Agents docusate sodium 100 mg capsule 10-05 00:00: 00 Yes [id number] 1 capsule 2 TIMES DAILY 1 capsule 2 TIMES DAILY (route: oral) Med Classific ation: Gastroint estinal Therapy Agents ferrous sulfate 134 mg (27 mg iron) tablet 10-05 00:00: 00 Yes [id number] 1 tablet DAILY 1 tablet DAILY (route: oral) Med Classific ation: Electroly te Balance-N utritiona l Products folic acid 1 mg tablet 10-05 00:00: 00 Yes [id number] 1 tablet DAILY 1 tablet DAILY (route: oral) Med Classific ation: Electroly te Balance-N utritiona l Products lactulose 20 gram/30 mL oral solution 10-05 00:00: 00 Yes [id number] 30 mL DAILY 30 mL DAILY (route: oral) Med Classific ation: Gastroint estinal Therapy Agents metoprolol tartrate 100 mg tablet 10-05 00:00: 00 Yes [id number] 1 tablet DAILY 1 tablet DAILY (route: oral) Med Classific ation: Cardiovas cular Therapy Agents multivitami n tablet 10-05 00:00: 00 Yes [id number] 1 tablet DAILY 1 tablet DAILY (route: oral) Med Classific ation: Electroly te Balance-N utritiona l Products nystatin 100,000 unit/mL oral suspension 10-05 00:00: 00 10-11 23:59 :00 No [id number] 5 mL 4 TIMES DAILY 5 mL 4 TIMES DAILY (route: oral) Med Classific ation: Mouth-Thr oat-Denta l - Preparati ons ondansetron 8 mg disintegrat ing tablet 10-05 00:00: 00 Yes [id number] 1 tablet EVERY 8 HOURS 1 tablet EVERY 8 HOURS (route: oral) Med Classific ation: Gastroint estinal Therapy Agents ProAir HFA 90 mcg/actuati on aerosol inhaler 10-05 00:00: 00 Yes [id number] 2 puff EVERY 6 HOURS 2 puff EVERY 6 HOURS (route: inhalation ) Med Classific ation: Respirato ry Therapy Agents pyridoxine (vitamin B6) 100 mg tablet 10-05 00:00: 00 Yes [id number] 1 tablet DAILY 1 tablet DAILY (route: oral) Med Classific ation: Electroly te Balance-N utritiona l Products megestrol 400 mg/10 mL (40 mg/mL) oral suspension 10-19 00:00: 00 Yes [id number] 40 mg EVERY 6 HOURS 40 mg EVERY 6 HOURS (route: oral) Med Classific ation: Eating Disorder Therapy Immunizations Ordered Immunization Name Filled Immunization Name Date Status Comments Refusal Reason INFLUENZA, TIV (INACTIVATED) 2021-05-11 00:00:00 COVID-19, COVID-19 2020-09-14 00:00:00 PNEUMOCOCCAL (PPV), PPV 2020-09-14 00:00:00 SHINGLES, TIV (INACTIVATED) 2020-09-14 00:00:00 Vital Signs Vital Name Observation Time Observation Value Commen ts Temperature 2021-11-24 08:36:00.000 97.4 [degF] Temperature 2021-11-16 08:41:00.000 97.2 [degF] Temperature 2021-11-15 09:29:00.000 97.6 [degF] Temperature 2021-11-09 08:42:00.000 97 [degF] Temperature 2021-11-09 08:40:00.000 97.6 [degF] Temperature 2021-11-08 10:15:00.000 97.7 [degF] Temperature 2021-11-05 08:36:00.000 97.6 [degF] Temperature 2021-11-02 12:47:00.000 97.2 [degF] Temperature 2021-11-01 12:21:00.000 97.6 [degF] Temperature 2021-10-29 14:35:00.000 98 [degF] Temperature 2021-10-27 12:09:00.000 97.6 [degF] Temperature 2021-10-26 12:13:00.000 97 [degF] Temperature 2021-10-26 09:45:00.000 97.8 [degF] Temperature 2021-10-22 16:45:00.000 98 [degF] Temperature 2021-10-19 17:49:00.000 97.9 [degF] Temperature 2021-10-15 10:10:00.000 97 [degF] Temperature 2021-10-05 10:02:00.000 97.3 [degF] BMI (%) 2021-10-15 10:10:00.000 19 kg/m2 BMI (%) 2021-10-05 10:02:00.000 18 kg/m2 Height 2021-10-15 10:10:00.000 69 [in_us] Height 2021-10-05 10:02:00.000 69 [in_us] Pulse 2021-11-24 08:36:00.000 74 /min Pulse 2021-11-16 08:41:00.000 66 /min Pulse 2021-11-15 09:29:00.000 78 /min Pulse 2021-11-09 08:42:00.000 63 /min Pulse 2021-11-09 08:40:00.000 68 /min Pulse 2021-11-08 10:15:00.000 68 /min Pulse 2021-11-05 08:36:00.000 64 /min Pulse 2021-11-02 12:47:00.000 64 /min Pulse 2021-11-01 12:21:00.000 76 /min Pulse 2021-10-29 14:35:00.000 78 /min Pulse 2021-10-27 12:09:00.000 70 /min Pulse 2021-10-26 12:13:00.000 68 /min Pulse 2021-10-26 09:45:00.000 76 /min Pulse 2021-10-22 16:45:00.000 76 /min Pulse 2021-10-19 17:49:00.000 78 /min Pulse 2021-10-15 10:10:00.000 74 /min Pulse 2021-10-05 10:02:00.000 80 /min O2 Saturation (%) 2021-11-24 08:36:00.000 98 % O2 Saturation (%) 2021-11-16 08:41:00.000 99 % O2 Saturation (%) 2021-11-09 08:42:00.000 100 % O2 Saturation (%) 2021-11-05 08:36:00.000 97 % O2 Saturation (%) 2021-11-02 12:47:00.000 98 % O2 Saturation (%) 2021-10-29 14:35:00.000 97 % O2 Saturation (%) 2021-10-26 12:13:00.000 98 % O2 Saturation (%) 2021-10-05 10:02:00.000 98 % Respirations 2021-11-24 08:36:00.000 18 /min Respirations 2021-11-16 08:41:00.000 18 /min Respirations 2021-11-15 09:29:00.000 18 /min Respirations 2021-11-09 08:42:00.000 18 /min Respirations 2021-11-09 08:40:00.000 18 /min Respirations 2021-11-08 10:15:00.000 19 /min Respirations 2021-11-05 08:36:00.000 18 /min Respirations 2021-11-02 12:47:00.000 18 /min Respirations 2021-11-01 12:21:00.000 18 /min Respirations 2021-10-29 14:35:00.000 18 /min Respirations 2021-10-27 12:09:00.000 19 /min Respirations 2021-10-26 12:13:00.000 18 /min Respirations 2021-10-26 09:45:00.000 19 /min Respirations 2021-10-22 16:45:00.000 20 /min Respirations 2021-10-19 17:49:00.000 18 /min Respirations 2021-10-15 10:10:00.000 19 /min Respirations 2021-10-05 10:02:00.000 20 /min Weight (lbs) 2021-10-15 10:10:00.000 129 [lb_av] Weight (lbs) 2021-10-05 10:02:00.000 128 [lb_av] Systolic Blood Pressure 2021-11-24 08:36:00.000 120 mm [Hg] Systolic Blood Pressure 2021-11-16 08:41:00.000 130 mm [Hg] Systolic Blood Pressure 2021-11-15 09:29:00.000 116 mm [Hg] Systolic Blood Pressure 2021-11-09 08:42:00.000 122 mm [Hg] Systolic Blood Pressure 2021-11-09 08:40:00.000 120 mm [Hg] Systolic Blood Pressure 2021-11-08 10:15:00.000 116 mm [Hg] Systolic Blood Pressure 2021-11-05 08:36:00.000 118 mm [Hg] Systolic Blood Pressure 2021-11-02 12:47:00.000 124 mm [Hg] Systolic Blood Pressure 2021-11-01 12:21:00.000 110 mm [Hg] Systolic Blood Pressure 2021-10-29 14:35:00.000 108 mm [Hg] Systolic Blood Pressure 2021-10-27 12:09:00.000 110 mm [Hg] Systolic Blood Pressure 2021-10-26 12:13:00.000 108 mm [Hg] Systolic Blood Pressure 2021-10-26 09:45:00.000 120 mm [Hg] Systolic Blood Pressure 2021-10-22 16:45:00.000 112 mm [Hg] Systolic Blood Pressure 2021-10-19 17:49:00.000 102 mm [Hg] Systolic Blood Pressure 2021-10-15 10:10:00.000 134 mm [Hg] Systolic Blood Pressure 2021-10-05 10:02:00.000 118 mm [Hg] Diastolic Blood Pressure 2021-11-24 08:36:00.000 68 mm [Hg] Diastolic Blood Pressure 2021-11-16 08:41:00.000 62 mm [Hg] Diastolic Blood Pressure 2021-11-15 09:29:00.000 68 mm [Hg] Diastolic Blood Pressure 2021-11-09 08:42:00.000 70 mm [Hg] Diastolic Blood Pressure 2021-11-09 08:40:00.000 66 mm [Hg] Diastolic Blood Pressure 2021-11-08 10:15:00.000 66 mm [Hg] Diastolic Blood Pressure 2021-11-05 08:36:00.000 64 mm [Hg] Diastolic Blood Pressure 2021-11-02 12:47:00.000 62 mm [Hg] Diastolic Blood Pressure 2021-11-01 12:21:00.000 60 mm [Hg] Diastolic Blood Pressure 2021-10-29 14:35:00.000 64 mm [Hg] Diastolic Blood Pressure 2021-10-27 12:09:00.000 66 mm [Hg] Diastolic Blood Pressure 2021-10-26 12:13:00.000 54 mm [Hg] Diastolic Blood Pressure 2021-10-26 09:45:00.000 68 mm [Hg] Diastolic Blood Pressure 2021-10-22 16:45:00.000 64 mm [Hg] Diastolic Blood Pressure 2021-10-19 17:49:00.000 56 mm [Hg] Diastolic Blood Pressure 2021-10-15 10:10:00.000 76 mm [Hg] Diastolic Blood Pressure 2021-10-05 10:02:00.000 58 mm [Hg] Plan of Treatment Planned Activity Planned Date Details Comments Future Scheduled Test SKILLED NU RSE TO PERFORM GENERAL ASSESSMENT AND EVALUATE PATIENT, IDENTIFY PRIMARY AND CO-MORBID CONDITIONS, AND DEVELOP PATIENT SPECIFIC PLAN OF CARE THAT INCLUDES PATIENT GOAL FOR HOME HEALTH. CLINICAL SUMMARY SOC THE PATIENT IS RECEIVING HOMECARE DUE TO NEW ONSET/EXACERBATION OF: SOB RECENT HOSPITALIZATION/INPATIENT ADMISSION RELATED TO: SOB AND PNA S/P LUNG RESECTION NEW OR CHANGED MEDICATIONS PERTINENT TO THE PLAN OF CARE: BOWEL REGIMENT AND ABX PATIENT LIVING SITUATION/CAREGIVER STATUS: LIVES ALONE RECENT FALLS: 2 SKILLED TEACHING AND TRAINING, OBSERVATION AND ASSESSMENT, AND/OR TREATMENTS THAT REQUIRE SKILLED CARE: DISEASE MANAGEMENT AND EDUCATION ADDITIONAL DISCIPLINES NEEDED OR DECLINED ORDERED SERVICES: PT, CARDIOLOGY TECH [code = SKILLED NURSE TO PERFORM GENERAL ASSESSMENT AND EVALUATE PATIENT, IDENTIFY PRIMARY AND CO-MORBID CONDITIONS, AND DEVELOP PATIENT SPECIFIC PLAN OF CARE THAT INCLUDES PATIENT GOAL FOR HOME HEALTH. CLINICAL SUMMARY SOC THE PATIENT IS RECEIVING HOMECARE DUE TO NEW ONSET/EXACERBATION OF: SOB RECENT HOSPITALIZATION/INPATIENT ADMISSION RELATED TO: SOB AND PNA S/P LUNG RESECTION NEW OR CHANGED MEDICATIONS PERTINENT TO THE PLAN OF CARE: BOWEL REGIMENT AND ABX PATIENT LIVING SITUATION/CAREGIVER STATUS: LIVES ALONE RECENT FALLS: 2 SKILLED TEACHING AND TRAINING, OBSERVATION AND ASSESSMENT, AND/OR TREATMENTS THAT REQUIRE SKILLED CARE: DISEASE MANAGEMENT AND EDUCATION ADDITIONAL DISCIPLINES NEEDED OR DECLINED ORDERED SERVICES: PT, CARDIOLOGY TECH] Future Scheduled Test SKILLED NU RSE TO REVIEW PATIENT MEDICATIONS. INSTRUCT PATIENT/CAREGIVER ON MONITORING OF EFFECTIVENESS, ADVERSE DRUG REACTIONS, SIDE EFFECTS OF ALL MEDICATIONS (PRESCRIPTION/-OTC), AND HOW AND WHEN TO REPORT PROBLEMS. [code = SKILLED NURSE TO REVIEW PATIENT MEDICATIONS. INSTRUCT PATIENT/CAREGIVER ON MONITORING OF EFFECTIVENESS, ADVERSE DRUG REACTIONS, SIDE EFFECTS OF ALL MEDICATIONS (PRESCRIPTION/-OTC), AND HOW AND WHEN TO REPORT PROBLEMS.] Future Scheduled Test SKILLED NU RSE TO PERFORM HOME SAFETY AND FALL ASSESSMENT AND PROVIDE INSTRUCTION TO IMPLEMENT HOME SAFETY AND FALL PREVENTION STRATEGIES. [code = SKILLED NURSE TO PERFORM HOME SAFETY AND FALL ASSESSMENT AND PROVIDE INSTRUCTION TO IMPLEMENT HOME SAFETY AND FALL PREVENTION STRATEGIES.] Future Scheduled Test SKILLED NU RSE TO OBTAIN PULSE OXIMETRY MEASUREMENT PRN FOR SIGNS AND SYMPTOMS OF SHORTNESS OF BREATH, ACTIVITY INTOLERANCE AND WHEN OXYGEN IS ORDERED. [code = SKILLED NURSE TO OBTAIN PULSE OXIMETRY MEASUREMENT PRN FOR SIGNS AND SYMPTOMS OF SHORTNESS OF BREATH, ACTIVITY INTOLERANCE AND WHEN OXYGEN IS ORDERED.] Future Scheduled Test SKILLED NU RSE FOR O/A AND TEACHING RELATED TO LUNG CA INCLUDING SIGNS AND SYMPTOMS OF DISEASE PROGRESSION, TREATMENT, AND MANAGEMENT OF POTENTIAL SIDE EFFECTS. [code = SKILLED NURSE FOR O/A AND TEACHING RELATED TO LUNG CA INCLUDING SIGNS AND SYMPTOMS OF DISEASE PROGRESSION, TREATMENT, AND MANAGEMENT OF POTENTIAL SIDE EFFECTS.] Future Scheduled Test PATIENT VAZQUEZ S A RISK OF REHOSPITALIZATION. SKILLED NURSE TO ESTABLISH SUPPORT MEASURES TO MINIMIZE RISK OF REHOSPITALIZATION, AND INSTRUCT PATIENT/CAREGIVER ON METHODS TO REDUCE AVOIDABLE HOSPITALIZATION. [code = PATIENT HAS A RISK OF REHOSPITALIZATION. SKILLED NURSE TO ESTABLISH SUPPORT MEASURES TO MINIMIZE RISK OF REHOSPITALIZATION, AND INSTRUCT PATIENT/CAREGIVER ON METHODS TO REDUCE AVOIDABLE HOSPITALIZATION.] Future Scheduled Test SKILLED NU RSE TO PROVIDE INSTRUCTION TO PATIENT/CAREGIVER RELATED TO DISCHARGE PLANNING. [code = SKILLED NURSE TO PROVIDE INSTRUCTION TO PATIENT/CAREGIVER RELATED TO DISCHARGE PLANNING.] Future Scheduled Test SKILLED NU RSE FOR O/A, TEACHING, AND MANAGEMENT OF ASHD [code = SKILLED NURSE FOR O/A, TEACHING, AND MANAGEMENT OF ASHD] Future Scheduled Test SKILLED NU RSE FOR OBSERVATION AND ASSESSMENT OF PATIENTS PAIN LEVEL AND EFFECTIVENESS OF PAIN MANAGEMENT REGIMEN. SKILLED NURSE TO INSTRUCT PATIENT/CAREGIVER REGARDING PHARMACOLOGIC AND NON-PHARMACOLOGIC PAIN CONTROL MEASURES. SKILLED NURSE TO REPORT TO PHYSICIAN IF PAIN IS UNCONTROLLED WITH CURRENT PAIN MANAGEMENT REGIMEN. [code = SKILLED NURSE FOR OBSERVATION AND ASSESSMENT OF PATIENTS PAIN LEVEL AND EFFECTIVENESS OF PAIN MANAGEMENT REGIMEN. SKILLED NURSE TO INSTRUCT PATIENT/CAREGIVER REGARDING PHARMACOLOGIC AND NON-PHARMACOLOGIC PAIN CONTROL MEASURES. SKILLED NURSE TO REPORT TO PHYSICIAN IF PAIN IS UNCONTROLLED WITH CURRENT PAIN MANAGEMENT REGIMEN.] Future Scheduled Test SKILLED NU RSE FOR O/A, TEACHING RELATED TO SBO, NAUSEA/VOMITING, CONSTIPATION, GASTRITIS, GALLSTONES LIVER/INTRAHEPATIC BILE DUCT CANCER FOR EARLY IDENTIFICATION OF EXACERBATION OF DISEASE PROCESS. [code = SKILLED NURSE FOR O/A, TEACHING RELATED TO SBO, NAUSEA/VOMITING, CONSTIPATION, GASTRITIS, GALLSTONES LIVER/INTRAHEPATIC BILE DUCT CANCER FOR EARLY IDENTIFICATION OF EXACERBATION OF DISEASE PROCESS.] Future Scheduled Test SKILLED NU RSE FOR O/A, TEACHING AND MANAGEMENT OF KIDNEY STONES, CKD, BPH FOR EARLY IDENTIFICATION OF EXACERBATION OF DISEASE PROCESS [code = SKILLED NURSE FOR O/A, TEACHING AND MANAGEMENT OF KIDNEY STONES, CKD, BPH FOR EARLY IDENTIFICATION OF EXACERBATION OF DISEASE PROCESS] Future Scheduled Test SKILLED NU RSE FOR O/A OF RESPIRATORY SYSTEM TO IDENTIFY CHANGES ASSOCIATED WITH EXACERBATION AND TO PROVIDE SKILLED TEACHING ON MANAGEMENT OF LUNG CA, EMPHYSEMA DISEASE PROCESS. [code = SKILLED NURSE FOR O/A OF RESPIRATORY SYSTEM TO IDENTIFY CHANGES ASSOCIATED WITH EXACERBATION AND TO PROVIDE SKILLED TEACHING ON MANAGEMENT OF LUNG CA, EMPHYSEMA DISEASE PROCESS.] Future Scheduled Test SKILLED NU RSE FOR O/A RELATED TO SIGNS AND SYMPTOMS OF INFECTION AND TO PROVIDE TEACHING REGARDING INFECTION CONTROL MEASURES R/T COMMUNITY ACQUIRED PNA. [code = SKILLED NURSE FOR O/A RELATED TO SIGNS AND SYMPTOMS OF INFECTION AND TO PROVIDE TEACHING REGARDING INFECTION CONTROL MEASURES R/T COMMUNITY ACQUIRED PNA.] Future Scheduled Test SKILLED NU RSE FOR O/A AND SKILLED TEACHING IN MANAGEMENT OF CAROTID ARTERY OCCLUSION [code = SKILLED NURSE FOR O/A AND SKILLED TEACHING IN MANAGEMENT OF CAROTID ARTERY OCCLUSION] Future Scheduled Test SKILLED NU RSE TO ASSESS PATIENT'S SKIN INTEGRITY AND INSTRUCT PATIENT/CAREGIVER ON MEASURES TO PREVENT PRESSURE ULCERS [code = SKILLED NURSE TO ASSESS PATIENT'S SKIN INTEGRITY AND INSTRUCT PATIENT/CAREGIVER ON MEASURES TO PREVENT PRESSURE ULCERS] Future Scheduled Test PHYSICAL T HERAPIST TO EVALUATE PATIENT FOR STRENGTHENING [code = PHYSICAL THERAPIST TO EVALUATE PATIENT FOR STRENGTHENING ] Future Scheduled Test SKILLED NU RSE TO PROVIDE TEACHING ON SIGNS AND SYMPTOMS AND MANAGEMENT OF HYPERTENSION. [code = SKILLED NURSE TO PROVIDE TEACHING ON SIGNS AND SYMPTOMS AND MANAGEMENT OF HYPERTENSION.] Goal 2021-10-15 Patient Goal - R ETAIN MY DIGNITY, STZY OUT OF THE HOSPITAL, AND GET STRONGER Goal 2021-12-03 Patient Goal - R ETAIN MY DIGNITY, STAY OUT OF THE HOSPITAL, AND GET STRONGER Goal Provider Goal - A PLAN OF CARE WILL BE ESTABLISHED THAT MEETS PATIENT'S JAIL NEEDS AND INCLUDES PATIENT GOAL FOR HOME HEALTH. Goal Provider Goal - PATIENT/CAREGIVER WILL VERBALIZE UNDERSTANDING OF EDUCATION PROVIDED ON MEDICATIONS BY THE END OF THE CERTIFICATION PERIOD. Goal Provider Goal - PATIENT/CAREGIVER WILL VERBALIZE/DEMONSTRATE EFFECTIVE HOME SAFETY AND FALL PREVENTION STRATEGIES THROUGHOUT CERTIFICATION PERIOD. Goal Provider Goal - PULSE OXIMETER RESULTS OBTAINED NEEDED FOR RESPIRATORY COMPLICATIONS. Goal Provider Goal - PATIENT / CAREGIVER WILL VERBALIZE/DEMONSTRATE MANAGEMENT OF CANCER/NEOPLASM DISEASE AND THE SIDE EFFECTS OF TREATMENTS DURING THIS EPISODE. Goal Provider Goal - PATIENT WILL HAVE SUPPORT MEASURES ESTABLISHED TO PREVENT REHOSPITALIZATION AND PATIENT/CAREGIVER WILL VERBALIZE/DEMONSTRATE METHODS TO REDUCE AVOIDABLE HOSPITALIZATION BY END OF CERT PERIOD. Goal Provider Goal - PATIENT/CAREGIVER WILL VERBALIZE UNDERSTANDING OF DISCHARGE PLANNING INSTRUCTIONS BY DATE OF DISCHARGE. Goal Provider Goal - PATIENT/CAREGIVER WILL VERBALIZE/DEMONSTRATE MANAGEMENT OF DISEASE PROCESS AND EXACERBATIONS WILL BE IDENTIFIED AND PROMPTLY REPORTED THROUGHOUT THE CERTIFICATION PERIOD. Goal Provider Goal - PATIENT/CAREGIVER WILL DEMONSTRATE UNDERSTANDING OF PHARMACOLOGIC AND NONPHARMACOLOGIC PAIN CONTROL MEASURES AND PATIENT WILL HAVE IMPROVEMENT IN PAIN INTERFERING WITH ACTIVITY EVIDENCED BY PAIN CONTROLLED AT LEVEL OF 7 OR LESS BY END OF CERTIFICATION PERIOD. Goal Provider Goal - EXACERBATIONS OF GASTROINTESTINAL DISEASE WILL BE PROMPTLY IDENTIFIED AND INTERVENTIONS IMPLEMENTED TO MINIMIZE RISKS TO PATIENT BY END OF CERT PERIOD Goal Provider Goal - PATIENT/CAREGIVER WILL VERBALIZE UNDERSTANDING OF GENITOURINARY DISEASE PROCESS, AND EXACERBATIONS OF GENITOURINARY DISEASE WILL BE PROMPTLY IDENTIFIED FOR EARLY INTERVENTION THROUGHOUT THE CERTIFICATION PERIOD. Goal Provider Goal - PATIENT/CAREGIVER WILL VERBALIZE/DEMONSTRATE MANAGEMENT OF RESPIRATORY DISEASE PROCESS. CHANGES IN RESPIRATORY STATUS WILL BE IDENTIFIED AND REPORTED TO PHYSICIAN FOR PROMPT INTERVENTION THROUGHOUT THE CERTIFICATION PERIOD. Goal Provider Goal - PATIENT/CAREGIVER WILL VERBALIZE/DEMONSTRATE INFECTION CONTROL MEASURES. SIGNS AND SYMPTOMS OF INFECTION WILL BE IDENTIFIED AND PHYSICIAN NOTIFIED FOR PROMPT INTERVENTION. Goal Provider Goal - PATIENT/CARGIVER WILL VERBALIZE/DEMONSTRATE THE ABILITY TO MANAGE CIRCULATORY DISEASE PROCESS AND EXACERBATIONS WILL BE IDENTIFIED FOR EARLY INTERVENTION THROUGHOUT THE CERTIFICATION PERIOD. Goal Provider Goal - PATIENT/CAREGIVER WILL VERBALIZE UNDERSTANDING OF PRESSURE ULCER PREVENTION BY END OF EPISODE Goal Provider Goal - A PHYSICAL THERAPY EVALUATION TO BE COMPLETED WITH RECOMMENDATIONS AND/OR WRITTEN PLAN OF TREATMENT ESTABLISHED FOR PHYSICIANS SIGNATURE. Goal Provider Goal - PATIENT/CAREGIVER WILL VERBALIZE SIGNS AND SYMPTOMS OF HYPERTENSION AND WILL BE ABLE TO DEMONSTRATE ABILITY TO MANAGE EXACERBATION BY END OF CERT PERIOD Reason for Visit PATIENT Encounters Start Date/Time End Date/Time Encounter Type Admission Type Attending Clinicians Care Facility Care Department Encounter ID Discharge Date Discharge Status Discharge Condition Discharge Reason Percent Goals Met 2021-10-05 00:00:00 2021-12-03 00:00:00 Outpatient NEW ADMISSION TOSHIA GARCIA [facility] [id number] 00:00:00 DISCHARGED /TRANSFERR ED TO A [facility] FOR INPATIENT CARE PATIENT REMAINS IN INPATIENT FACILITY AT END OF CERT PERIOD 76.67
== END 2024-04-04 09:10 | disposition home or self-care (01) ==
PROVIDERS: PCP Internal Medicine; Visit Provider Internal Medicine Cardiovascular Disease
DX: I25.10 Atherosclerotic heart disease of native coronary artery without angina pectoris (principal); I10 Essential (primary) hypertension
CPT/HCPCS: 93010; 99214; G2211

== ENCOUNTER → 2024-04-04 08:30 | Outpatient (BNVA) | payer OTHER, SELFPAY | PROVIDERS: PCP Internal Medicine; Visit Provider Internal Medicine Cardiovascular Disease | DX: I25.10 Atherosclerotic heart disease of native coronary artery without angina pectoris (principal); I10 Essential (primary) hypertension | CPT/HCPCS: 93005; 99212 ==

== ENCOUNTER 2024-06-04 07:37 | Outpatient (REF) | payer MEDICARE, SELFPAY ==
--- OUTSIDE RECORDS SUMMARY | 2024-06-04 07:44 | XMS_ITS | Patient Health Record ---
Author Organization [facility] Address [address] [place] [phone] Care Team Providers Care Group Teacher Name Role Phone Arnulfo Pineda Primary Care Provider Un available [place] Unavailable [phone] ALLERGIES No Known Allergies REASON FOR REFERRAL No Information MEDICATIONS Medication SIG (Take, Route, Frequency, Duration) Notes Start Date End Date Status Metoprolol Succinate 100 MG 1 capsule Or ally Once a day Active Aspirin 81 MG 1 tablet Orally Once a day Active Vitamin C 500 MG 1 tablet Orally Once a day Active amLODIPine Besy-Benazepril HCl 5-10 MG as directed Orally Active Vitamin D Active hydrALAZINE HCl 25 MG 1 tablet with food Orally Three times a day for 30 day(s) Active Iron 65 MG 1 tablet Orally Once a day Active Allopurinol 100 MG 1 tablet Orally Once a day for 30 day(s) Active Vitamin B6 100 MG 1 tablet Orally Once a day for 30 day(s) Active Multivitamin - 1 tablet Orally Once a day for 30 day(s) Active Atorvastatin Calcium 80 MG 1 tablet Oral ly Once a day Active Tamsulosin HCl Activ e Lisinopril 20 MG 1 tablet Orally Once a day Active IMMUNIZATIONS Vaccine Route Administration Date Status Comme nts Influenza Unknown 01/20/2021 Administered SOCIAL HISTORY Sex Assigned At : Social History Observation Description Sex Assigned At Unknown PROBLEMS Problem Type ICD Code Onset Dates Problem Status W/U Status Risk SNOMED Code Notes Problem Anemia, unspecified type (D64.9) Active confirmed 965719934 Problem Diverticulosis of colon (K57.30) Active confirmed Diverticulosi s of colon (547181468) PLAN OF TREATMENT Pending Test Test Name Order Date IRON + IBC (FE) 01/27/2021 VITAMIN B12 AND FOLATE 01/27/2021 CBC w DIFF 01/27/2021 CELIAC PANEL #10 01/27/2021 Pathology 02/08/2021 Future Test Test Name Order Date COLONOSCOPY 12/23/2011 UPPER GI ENDOSCOPY 01/27/2021 COLONOSCOPY 01/27/2021 Insurance Providers Payer Name Payer Address Payer Phone Subscriber Number Group Number Insured Name Patient Relationship to Insured Coverage Start Date Coverage End Date [facility] [employer] [address] [place] [address] [id number] EILEEN VENTURA Self - patient is the insured MEDICAL (GENERAL) HISTORY Medical History History ICD Code OR in 1995-no problems since then-did no t have cardiac cath; CABG as below HTN Hyperlipidemia Abdominal aortic aneurysm Denies DM,CVA,Lung disease,renal disease Kidney stones-had ESWL--Dr. Mcintosh Neg. colonoscopy in 2002 and Colonoscopy 12/2011 with a hyperplastic polyp Chronic anemia--started Iron in summer 2 021 Surgical History Surgery Date(Month/Year) 5 V CABG in 2019 Right carotid-Dr. Martin--2019
--- OUTSIDE RECORDS SUMMARY | 2024-06-04 07:45 | XMS_ITS | Encounter Summary ---
Author Organization [facility] Address [address] [place] [address] Care Team Providers Care Guest Services Ambassador Name Role Phone Franco Goel MD Primary Care Provider [phone] Encounter Details Date Type Department Care Team (Late st Contact Info) Description 03/03/2023 Scanned Document [facility] [address] [facility] [address] [place] [address] Radiation Therapy, Scan Social History Tobacco Use Types Packs/Day Years Used Date Smoking Tobacco: Unknown Alcohol Use Standard Drinks/Week Comments Not Currently 0 (1 standard drink = 0.6 oz pur e alcohol) [facility] Utilities Answer Date Recorded In the past 12 months has th e electric, gas, oil, or water company threatened to shut off services in your home? No 02/17/2023 Overall Financial Resource Strain (CARDIA) Answe r Date Recorded How hard is it for you to pa y for the very basics like food, housing, medical care, and heating? Not hard at all 02/17/2023 Hunger Vital Sign Answer Date Recorded Within the past 12 months, y ou worried that your food would run out before you got the money to buy more. Never true 02/18/20 23 Within the past 12 months, t he food you bought just didn't last and you didn't have money to get more. Never true 02/17/2023 PRAPARE - Transportation Answer Date Re corded In the past 12 months, has l ack of transportation kept you from medical appointments or from getting medications? No 02/08 In the past 12 months, has l ack of transportation kept you from meetings, work, or from getting things needed for daily living? No 02/17/2023 Housing Stability Vital Sign Answer Mike e Recorded In the last 12 months, was t here a time when you were not able to pay the mortgage or rent on time? No 02/17/2023 In the last 12 months, how many places have you lived? 1 02/17/2023 In the last 12 months, was t here a time when you did not have a steady place to sleep or slept in a correction (including now)? No 02/17/2023 Sex and Gender Information Value Date Recorded Sex Assigned at Not on file Gender Identity Not on file Sexual Orientation Not on file documented as of this encounter Plan of Treatment Not on file documented as of this encounter Procedures Procedure Name Priority Date/Time Associated Diagnosis Comments HX OUTSIDE ORDER 03/03/2023 documented in this encounter Results * HX OUTSIDE ORDER (03/03/2023) Scan Radiation Therapy HX AMB PROCEDURES documented in this encounter Visit Diagnoses Not on filedocumented in this encounter Care Teams Guest Services Ambassador Relationship Specialty Start Date End Date Franco Goel MD [address] [place] [address] [place] [address] PCP - General 02/15/23 documented as of this encounter
--- OUTSIDE RECORDS SUMMARY | 2024-06-04 07:45 | XMS_ITS ---
Author Organization [facility] Address [address] [place] [address] Care Team Providers Care Data Typist Name Role Phone Arnulfo Angeles PA-C Primary Care Provider Active Problems Problem Noted Date Diagnosed Date Primary adenocarcinoma of right lung 09/07/2021 Current Oncology Plans No current plan information found. Past Plans ONCOLOGY TREATMENT Plan Name Start Date Discontinue Date Treatment Medications Discontinue Reason Plan Provider [facility]cles [facility] 022 05/05/2022 albuterol (PROVENTIL)atezolizumab (TECENTRIQ) infusiondiphenhydrAMINE (BENADRYL)EPINEPHrinefa motidine (PF) (PEPCID)hydrocortisone (SOLU-CORTEF) IVmeperidine (DEMEROL) 25 MG/MLSaline Flush 0.9 %sodium chloride (NS) 0.9 %sodium chloride 0.9% bolus (NS) Therapy Complete Kedar Shoemaker MD 1 of 12 cycles started [facility] OP PEMETREXED+CA RBOPLATIN (AUC=6) 09/15/19 22 11/22/2021 albuterol (PROVENTIL)aprepitant (CINVANTI)CARBOplatin (PARAPLATIN) chemo infusion (by AUC)cyanocobalamin (VITAMIN B12)dexamethasone (DECADRON)dexamethasone (DECADRON) DOSE > 10 mg IVPBdiphenhydrAMINE (BENADRYL)EPINEPHrinefa motidine (PEPCID)folic acid (FOLVITE)hydrocortisone (SOLU-CORTEF) IVmeperidine (DEMEROL) 25 MG/MLpalonosetron (ALOXI)PEMEtrexed (ALIMTA) chemo infusionprochlorperazin e (COMPAZINE)Saline Flush 0.9 %sodium chloride (NS) 0.9 %sodium chloride 0.9% bolus (NS) Not Tolerated Castro Farias MD 1 of 4 cycles started Radiation Treatments * No radiation treatments are documented for this patient in [facility]. Treatments may have been administered in another system.
--- OUTSIDE RECORDS SUMMARY | 2024-06-04 07:45 | XMS_ITS | Encounter Summary ---
Author Organization [facility] Address [address] [place] [address] Care Team Providers Care Talent Advisor Name Role Phone Franco Goel MD Primary Care Provider [phone] Encounter Details Date Type Department Care Team (Late st Contact Info) Description 2023 Scanned Document [facility] 80 [facility] [address] [place] [address] Radiology, Scan Social History Tobacco Use Types Packs/Day [...] place to sleep or slept in a residential (including now)? No 02/17/2023 Sex and Gender Information Value Date Recorded Sex Assigned at Not on file Gender Identity Not on file Sexual Orientation Not on file documented as of this encounter Plan of Treatment Not on file documented as of this encounter Procedures Procedure Name Priority Date/Time Associated Diagnosis Comments HX OUTSIDE ORDER 2023 documented in this encounter Results * HX OUTSIDE ORDER (2023) Scan Radiology HX AMB PROCEDURES documented in this encounter Visit Diagnoses Not on filedocumented in this encounter Care Teams Talent Advisor Relationship Specialty Start Date End Date Franco Goel MD [address] [place] [address] [place] [address] PCP - General 02/15/23 documented as of this encounter
--- OUTSIDE RECORDS SUMMARY | 2024-06-04 07:45 | XMS_ITS | Clinical Summary ---
Author Organization [facility] Address [address] [place] [address] Phone Care Team Providers Care News Intern Name Role Phone Arnulfo Angeles Primary Care Provider [phone] Allergies No known active allergies Medications acetaminophen-cod eine (TYLENOL #3) 300-30 mg per tablet Take 1 tablet by mouth every 4 (four) hours as needed for pain. Active albuterol sulfate 90 mcg/actuation aerosol powdr breath activated Inhale into the lungs. Active allopurinoL (ZYLOPRIM) 100 mg tablet Take 1 tablet (100 mg total) by mouth daily. Active amLODIPine (NORVASC) 10 mg tablet Take 1 tablet (10 mg total) by mouth daily. Active amLODIPine-atorva statin (CADUET) 10-10 mg per tablet Take 1 tablet by mouth daily. Active amoxicillin-clavu lanate (AUGMENTIN) 875-125 mg per tablet Take 1 tablet by mouth 2 (two) times a day. 2 Active aspirin 81 mg EC tablet Take 1 tablet (81 mg total) by mouth daily. Active atorvastatin (LIPITOR) 80 mg tablet Take 1 tablet (80 mg total) by mouth daily. Active calcium acetate,phosphat bind, (PHOSLO) 667 mg capsule Take 2 capsules (1,334 mg total) by mouth 3 (three) times a day with meals. Active clobetasoL (TEMOVATE) 0.05 % ointment Apply topically 2 (two) times a day. Active dexAMETHasone (DECADRON) 0.75 mg tablet Take 1 tablet (0.75 mg total) by mouth 2 (two) times a day with meals. 2 Active docusate sodium (COLACE) 50 mg capsule Take by mouth 2 (two) times a day. Active ferrous sulfate 325 mg (65 mg elemental iron) tablet Take 1 tablet (325 mg total) by mouth every morning with breakfast. Active fluconazole (DIFLUCAN) 100 mg tablet Take 1 tablet (100 mg total) by mouth daily. Active folic acid (FOLVITE) 1 mg tablet Take 1 tablet (1 mg total) by mouth daily. 2 Active hydrALAZINE (APRESOLINE) 25 mg tablet Take 1 tablet (25 mg total) by mouth 2 (two) times a day. Active lactulose (CHRONULAC) solution Take 30 mL (20 g total) by mouth 2 (two) times a day. Active levETIRAcetam 250 mg tablet for suspension Take by mouth. Acti ve loratadine (CLARITIN) 10 mg tablet Take 1 tablet (10 mg total) by mouth daily. Active megestroL (MEGACE) 400 mg/10 mL (40 mg/mL) suspension SHAKE LIQUID AND TAKE 20 ML(800 MG) BY MOUTH DAILY 2 Active melatonin 1 mg tablet Take 1 tablet (1 mg total) by mouth every night at bedtime. Active metoprolol succinate 100 mg capsule,sprinkle, ER 24hr Take 100 mg by mouth daily. Active multivit-min/iron /folic acid/K (ADULTS MULTIVITAMIN ORAL) Take by mouth. Activ e pyridoxine (B-6) 100 mg tablet Take 1 tablet (100 mg total) by mouth daily. Active vitamin E acid succinate (vitamin E succinate) 268 mg (400 unit) tablet Take by mouth. Active cholecalciferol (VITAMIN D-3) 25 mcg (1,000 unit) tablet Take 1 tablet (25 mcg total) by mouth daily. Active ascorbic acid (VITAMIN C) 500 mg tablet Take 1 tablet (500 mg total) by mouth daily. Active Active Problems Problem Noted Date Diagnosed Date Primary adenocarcinoma of right lung 09/07/2021 Encounters Date Type Department Care Team Description 04/26/2024 Telephone [facility] Hematology Oncology [address] [place] [phone] Castro Farias MD 04/02/2024 9:30 AM EST Office Visit [facility] Hematology Oncology [address] [place] [phone] Castro Farias MD Primary adenocarcinoma of right lung (CMS/HCC) (Primary Dx) from Last 3 Months Surgical History Surgery Date Site/Laterality Comments LUNG SURGERY PROCEDURE:LUNG SURGERY OTHER SURGICAL HISTORY 07/27/2021 PROCEDURE:RUL lobectomy Medical History Medical History Date Comments Lung cancer (CMS/HCC) DX:Lung ca ncer (HCC) Hypertension DX:Hypertension Heart attack (CMS/HCC) DX:Heart attack (HCC) Anemia DX:Anemia Kidney stone DX:Kidney stone Carotid artery occlusion DX:[place] tid artery occlusion Family History Medical History Relation Name Comments Bone cancer Father Relation Name Status Comments Father Mother Social History Tobacco Use Types Packs/Day Years Used Date Smoking Tobacco: Every Day Cigarettes Smokeless Tobacco: Never Alcohol Use Standard Drinks/Week Comments Not Currently 0 (1 standard drink = 0.6 oz pur e alcohol) Sex and Gender Information Value Date Recorded Sex Assigned at Not on file Legal Sex Male 12:56 AM EST Gender Identity Not on file Sexual Orientation Not on file Obstetrics History Last Filed Vital Signs Vital Sign Reading Time Taken Comments Blood Pressure 166/67 04/02/2024 9:47 AM EST Pulse 69 04/02/2024 9:47 AM EST Temperature 36.2 ??C (97.1 ??F) 04/02/2024 9:47 AM ES T Respiratory Rate - - Oxygen Saturation 100% 04/02/2024 9:47 AM EST Inhaled Oxygen Concentration - - Weight 63 kg (139 lb) 04/02/2024 9:47 AM EST Height 175.3 cm (5' 9 ) 10/26/2023 3:53 PM EDT Body Mass Index 20.53 10/26/2023 3:53 PM EDT Plan of Treatment Upcoming Encounters Date Type Department Care Team (Late st Contact Info) Description 10/01/2024 9:15 AM EDT Office Visit [facility] Hematology Oncology [address] [place] [phone] Castro Farias MD [address] [place] [phone] Health Maintenance Due Date Last Done Comments Cholesterol Screening (Lipid Panel) 03/13/2022 Depression Screening 03/13/2022 Falls Risk Assessment 03/13/2022 Hepatitis C Screening 03/13/2022 Lung Cancer Screening (Low Dose CT) 03/13/2022 Social Influencers of Health Screening 03/13/2022 Hypertension/CHF/CAD Annual BMP Blood Test 04/02/2024 02/16/2023, 02/15/2023, 02/15/2023 DTaP,Tdap,and Td Vaccines (2 - Td or Tdap) 09/12/2028 09/12/2018 Zoster Vaccines Completed 06/18/2019, 03/14/2019 Pneumococcal Vaccine: 50+ Years Completed 06/19/2020, 09/12/2018 RSV Immunization Patients 60+ Years Old Completed 04/25/2023 COVID-19 Vaccine Completed 02/16/2024, 09/2022, 03/11/2022, Additional history exists Influenza Vaccine Completed 02/16/2024, , 02/13/2023, Additional history exists HIB Vaccines Aged Out No longer eligi ble based on patient's age to complete this topic HPV Vaccines Aged Out No longer eligi ble based on patient's age to complete this topic Hepatitis A Vaccines Aged Out No long er eligible based on patient's age to complete this topic Hepatitis B Vaccines Aged Out No long er eligible based on patient's age to complete this topic IPV Vaccines Aged Out No longer eligi ble based on patient's age to complete this topic MMR Vaccines Aged Out No longer eligi ble based on patient's age to complete this topic Meningococcal ACWY Vaccine Aged Out N o longer eligible based on patient's age to complete this topic Meningococcal B Vacine Aged Out No lo nger eligible based on patient's age to complete this topic RSV Immunization Patients Under 20 months Aged Out No longer eligible based on patient's age to complete this topic Varicella Vaccines Aged Out No longer eligible based on patient's age to complete this topic Procedures Procedure Name Priority Date/Time Associated Diagnosis Comments ANNUAL BMP BLOOD TEST Routine 02/16/2023 from Last 3 Months or Most Recently Relevant to Health Maintenance Results * Annual BMP Blood Test (02/16/2023) Annual BMP Blood Test Abstracted us Historical Provider MD HEALTH MAINTENANCE Final Result from Last 3 Months or Most Recently Relevant to Health Maintenance Insurance [facility] Advance Directives Documents on File Type Date Recorded Patient Fast Food Shift Lead Expl anation Health Care Decision (hx) 07/29/2021 AD PATEL DIRECTIVE Health Care Decision (hx) 07/29/2021 AD PATEL DIRECTIVE Health Care Decision (hx) 07/29/2021 AD PATEL DIRECTIVE Health Care Decision (hx) 07/29/2021 AD PATEL DIRECTIVE Health Care Decision (hx) 07/29/2021 AD PATEL DIRECTIVE Health Care Decision (hx) 07/29/2021 AD PATEL DIRECTIVE Health Care Decision (hx) 07/29/2021 AD PATEL DIRECTIVE Health Care Decision (hx) 07/29/2021 AD PATEL DIRECTIVE Health Care Decision (hx) 07/29/2021 AD PATEL DIRECTIVE Health Care Decision (hx) 07/29/2021 AD PATEL DIRECTIVE Care Teams News Intern Relationship Specialty Start Date End Date Arnulfo Angeles PA [address] [place] [phone] PCP - General Scraper Operator 06/25/21
--- OUTSIDE RECORDS SUMMARY | 2024-06-04 07:45 | XMS_ITS | Clinical Summary ---
Author Organization [facility] Address [address] [place] [address] Care Team Providers Care Repeat Chief Name Role Phone Arnulfo Angeles PA-C Primary Care Provider Allergies No known active allergies Medications Medication Sig Dispensed Refills Start Date End Date Status acetaminophen-codei ne (TYLENOL #3) 300-30 MG per tablet Take 1 tablet by mouth every 4 (four) hours as needed for pain. 0 Active allopurinol (ZYLOPRIM) 100 MG tablet Take 1 tablet (100 mg total) by mouth daily. 0 Active amLODIPine-atorvast atin (CADUET) 10-10 MG per tablet Take 1 tablet by mouth daily. 0 Active aspirin EC 81 MG tablet Take 1 tablet (81 mg total) by mouth daily. 0 Active ferrous sulfate 325 (65 FE) MG tablet Take 1 tablet (325 mg total) by mouth every morning with breakfast. 0 Active hydrALAZINE (APRESOLINE) 25 MG tablet Take 1 tablet (25 mg total) by mouth 2 (two) times a day. 0 Active Metoprolol Succinate 100 MG CS24 Take 100 mg by mouth daily. 0 Active vitamin D3 (cholecalciferol) 25 MCG (1000 UT) tablet Take 1 tablet (25 mcg total) by mouth daily. 0 Active atorvastatin (LIPITOR) tablet 80 mg Take 1 tablet (80 mg total) by mouth daily. 0 Active ascorbic acid (VITAMIN C) 500 MG tablet Take 1 tablet (500 mg total) by mouth daily. 0 Active Multiple Vitamin (MULTIVITAMIN ADULT PO) Take by mouth. 0 Active clobetasol (TEMOVATE) 0.05 % ointment Apply topically 2 (two) times a day. 0 Active folic acid (FOLVITE) tablet 1 mg Take 1 tablet (1 mg total) by mouth daily. 30 tablet 4 08/27/2021 Active amoxicillin-clavula lizbeth (AUGMENTIN) 875-125 MG per tablet Take 1 tablet by mouth 2 (two) times a day. 28 tablet 0 09/24/2021 Active Additional Information Patient not taking.Reported on 09/18/2023 Albuterol Sulfate 108 (90 Base) MCG/ACT AEPB Inhale into the lungs. 0 Active docusate sodium (COLACE) 50 MG capsule Take by mouth 2 (two) times a day. 0 Active lactulose (CEPHULAC) 20 GM/30ML solution Take 30 mL (20 g total) by mouth 2 (two) times a day. 0 Active pyridoxine (B-6) 100 MG tablet Take 1 tablet (100 mg total) by mouth daily. 0 Active megestrol (MEGACE) suspension 40 mg/mL SHAKE LIQUID AND TAKE 20 ML(800 MG) BY MOUTH DAILY 1800 mL 2 10/19/2021 Active Additional Information Patient not taking.Reported on 09/18/2023 dexamethasone (DECADRON) 0.75 MG tablet Take 1 tablet (0.75 mg total) by mouth 2 (two) times a day with meals. 60 tablet 1 10/22/2021 Active Additional Information Patient not taking.Reported on 09/18/2023 amLODIPine (NORVASC) tablet 10 mg Take 1 tablet (10 mg total) by mouth daily. 0 Active calcium acetate (PHOSLO) 667 MG capsule Take 2 capsules (1,334 mg total) by mouth 3 (three) times a day with meals. 0 Active Vitamin E 400 units TABS Take by mouth. 0 Active loratadine (Claritin) 10 MG tablet Take 1 tablet (10 mg total) by mouth daily. 0 Active levETIRAcetam 250 MG TB3D Take by mouth. 0 Active fluconazole (DIFLUCAN) 100 MG tablet Take 1 tablet (100 mg total) by mouth daily. 0 Active Melatonin 1 MG TABS tablet Take 1 tablet (1 mg total) by mouth every night at bedtime. 0 Active tamsulosin (FLOMAX) 0.4 MG CAPS Take 1 capsule (0.4 mg total) by mouth daily. 0 Active Active Problems Problem Noted Date Diagnosed Date Primary adenocarcinoma of right lung 09/07/2021 Family History Medical History Relation Name Comments Bone cancer Father Relation Name Status Comments Father Mother Social History Tobacco Use Types Packs/Day Years Used Date Smoking Tobacco: Every Day Cigarettes 1 59 Smokeless Tobacco: Never Comments:Pt reports smoking a couple cigarettes a day Alcohol Use Standard Drinks/Week Comments Not Currently 0 (1 standard drink = 0.6 oz pur e alcohol) Sex and Gender Information Value Date Recorded Sex Assigned at Not on file Gender Identity Not on file Sexual Orientation Not on file Job Start Date Occupation Industry Not on file Not on file Not on file Last Filed Vital Signs Vital Sign Reading Time Taken Comments Blood Pressure 154/57 09/18/2023 9:39 AM EDT Pulse 78 09/18/2023 9:39 AM EDT Temperature 36.3 ??C (97.4 ??F) 09/18/2023 9:39 AM ED T Respiratory Rate 20 11/23/2021 8:47 AM EDT Oxygen Saturation 100% 09/18/2023 9:39 AM EDT Inhaled Oxygen Concentration - - Weight 64.7 kg (142 lb 9.6 oz) 09/18/2023 9:39 A M EDT Height 175.3 cm (5' 9 ) 08/30/2022 10:31 AM EDT Body Mass Index 21.06 08/30/2022 10:31 AM EDT Plan of Treatment Health Maintenance Due Date Last Done Comments Hepatitis C Screening 1945 Lung Cancer Screening (Low Dose CT) 1945 Depression Screening 1957 Preventative Health Evaluation 1963 Tobacco Cessation Counseling 1963 Fall Risk Assessment 2010 COVID-19 Vaccine (2 - Modern a risk series) 03/23/2023 02/23/2023 Influenza Vaccine (#1) 2023 , 12/30/2018, 01/08/2018 DTap / Tdap / Td (2 - Td or Tdap) 09/12/2028 09/12/2018 Shingrix-Zoster Vaccine Completed 06/18/19 20, 03/14/2019 Pneumococcal Vaccine Completed 06/19/2020, 09/12/2018 RSV Adult > 60+ Yrs or Completed 04/25/2023 Hepatitis B Vaccines Aged Out No long er eligible based on patient's age to complete this topic RSV Ped < 20 months Aged Out No longe r eligible based on patient's age to complete this topic Care Teams Repeat Chief Relationship Specialty Start Date End Date Arnulfo Angeles PA-C [address] [facility] [place] [phone] PCP - General Physician Outside Sales Manager 08/20/21
--- OUTSIDE RECORDS SUMMARY | 2024-06-04 07:45 | XMS_ITS | Clinical Summary ---
Author Organization [facility] Address [phone] [facility] [address] [place] [address] Care Team Providers Care Tree Planter Name Role Phone Franco Goel MD Primary Care Provider Social History Tobacco Use Types Packs/Day Years Used Date Smoking Tobacco: Never Assessed Education Answer Date Recorded Are you interested in more education? Not on haily e 08/05/2022 Are you concerned about learning? Not on file 08/05/2022 No 08/05/2022 No 08/05/2022 Digital Access Answer Date Recorded No 09/03/2022 No 09/03/2022 No 09/03/2022 Reliable internet access at home? Not on file 09/03/2022 Device with a working camera? Not on file Sex and Gender Information Value Date Recorded Sex Assigned at Not on file Gender Identity Not on file Sexual Orientation Not on file Plan of Treatment Health Maintenance Due Date Last Done Comments Adult Td,Tdap Booster 1945 LIPID PANEL 1945 DEPRESSION SCREENING 1957 SMOKING Hx and SMOKELESS TOB ACCO SCREENING 1958 HEPATITIS B SCREENING 1963 HEPATITIS C SCREENING 1963 PNEUMOCOCCAL VACCINES (50+ y ears) (1 of 1 - PCV) 1995 ZOSTER VACCINES (1 of 2) 1995 RSV VACCINE (1 - 1-dose 75+ series) 2020 INFLUENZA VACCINE (#1) 2023 01/01/2021 COVID-19 VACCINE ( - 2023-2 5 season) 2023 HEPATITIS A VACCINES Aged Out No long er eligible based on patient's age to complete this topic HEPATITIS B VACCINES Aged Out No long er eligible based on patient's age to complete this topic HIB VACCINES Aged Out No longer eligi ble based on patient's age to complete this topic MENINGOCOCCAL VACCINES (ACWY) Aged Out No longer eligible based on patient's age to complete this topic Medical Devices Not on file Care Teams Tree Planter Relationship Specialty Start Date End Date Franco Goel MD [address] [place] [address] [place] [address] PCP - General Internal Medicine 09/19/18 Additional Source Comments The information contained in this document represents components of the legal health record. It is not the complete legal health record.[facility]
[2024-06-04 08:02] LABS: MANUAL DIFF FLAG NO
[2024-06-04 08:30] LABS: Basophils Percent Auto 0.5 % (0-2); Eosinophils Absolute Auto 0.1 X10*3/uL (0.0-0.4); Eosinophils Percent Auto 2.1 % (0-4); Hematocrit 32.3 % (42.0-52.0); Hemoglobin 10.7 g/dl (14.0-18.0); Imm Gran Abs Auto 0.01 X10*3/uL (0.00-0.03); Imm Gran Pct Auto 0.2 % (0.0-0.4); Lymphocytes Percent Auto 23.9 % (20-40); Mean Corpuscular HGB Conc 33.1 g/dl (31.0-36.0); Mean Corpuscular Hemoglobin 33.6 pg (27.0-33.0); Mean Corpuscular Volume 101.6 fL (80.0-98.0); Mean Platelet Volume 10.9 fL (9.4-12.4); Monocytes Absolute Auto 0.4 X10*3/uL (0.1-1.2); Monocytes Percent Auto 9.4 % (2-11); Neutrophils Absolute Auto 2.8 x10*3/uL (2.0-8.3); Neutrophils Percent Auto 63.9 % (45-73); Platelet Count 174 X10*3/uL (160-400); Red Blood Count 3.18 X10*6/uL (4.60-5.80); Red Cell Distribution Width 13.6 % (11.0-16.0); White Blood Count 4.4 X10*3/uL (4.8-10.8)
[2024-06-04 08:41] LABS: Appearance Urine Clear; Color Urine Yellow; Glucose Urine UA Negative (Negative); Leukocyte Esterase Urine Negative (Negative); Nitrite Urine Negative (Negative); PH 6.5 (5.0-9.0); UMIC TRIGGER UA YES; Urine Blood Negative (Negative); Urine Ketones Negative (Negative); Urine Protein 300 (3+) mg/dL (Neg-Trace)
[2024-06-04 08:47] LABS: Bacteria Urine None Seen (None Seen); Hyaline Casts Urine 0-2 /LPF (0-2); RBC Urine 0-2 /HPF (0-2); Squamous Epithelial Cell Urine 0-2 /HPF (0-2); WBC Urine 0-5 /HPF (0-5)
[2024-06-04 09:04] LABS: Alanine Aminotransferase 23 U/L (0-40); Albumin Level 3.5 g/dL (3.5-5.0); Alkaline Phosphatase 126 U/L (39-117); Anion Gap 11 (12-20); Aspartate Amino Transferase 35 U/L (5-37); Bilirubin Total 0.3 mg/dL (0.0-1.0); Blood Urea Nitrogen 28 mg/dL (9-16); Calcium 9.4 mg/dL (8.4-10.2); Carbon Dioxide 23 mmol/L (22-29); Chloride 109 mmol/L (96-108); Cholesterol 117 mg/dL (<200); Estimated Glomerular Filt Rate 56; Glucose Fasting 98 mg/dL (60-99); HDL Cholesterol 37 mg/dL (>40); LDL Cholesterol Calculated 66 mg/dL (<100); Potassium 4.2 mmol/L (3.3-5.1); Sodium 139 mmol/L (135-145); Total Protein 8.2 g/dL (6.5-8.0); Triglycerides 74 mg/dL (<150)
[2024-06-04 09:23] LABS: Prostate Specific Antigen 1.17 ng/mL (<0.05-4.0)
== END 2024-06-04 07:38 | disposition home or self-care (01) ==
LOC: HO.LAB 07:37
PROVIDERS: PCP Internal Medicine; Visit Provider Internal Medicine
DX: I25.10 Atherosclerotic heart disease of native coronary artery without angina pectoris (principal); N18.9 Chronic kidney disease, unspecified; E78.00 Pure hypercholesterolemia, unspecified; D64.9 Anemia, unspecified; Z12.5 Encounter for screening for malignant neoplasm of prostate
CPT/HCPCS: 36415; 80053; 80061; 81001; 84153; 85025

== ENCOUNTER 2024-07-17 13:59 | Outpatient (AMB) | payer MEDICARE, SELFPAY ==
[2024-07-17 14:05] VITALS: BP 120/70; PULSE 68; TEMP 36.4; O2SAT 98; BMI 20.4
--- NOTE | 2024-07-17 14:05 | MHC.PC.OV ---
Vital Signs 07/17/24 14:05 Height 5 ft 9 in Weight 138 lb BMI 20.4 BP 120/70 Blood Pressure Location Lt brachial Position Sitting Pulse 68 Pulse Source Pulse Oximeter Temp 97.6 F Temp Source Axillary Pulse Oximetry (%) 98 Oxygen Delivery Method Room Air Intake Visit Reasons: Routine Fire Alarm Operator Required: No Accompanied by: Self / Same As Patient Allergies No Known Allergies [No Known Allergies*] Allergy (Verified 07/17/24 14:06) Tobacco use date assessed: 07/17/24 Fall risk assessment: 1 Fall in past year Last assessed Fall Risk: 07/17/24 Dental Screening Dental Screen Date: 07/17/24 Did you have a dental visit in the last 12 months?: Yes Did you have a dental problem in the last 6 months where you did not have access to dental care?: No PFSH Medical History HTN (hypertension) COVID-19 virus infection NSVT (nonsustained ventricular tachycardia) CHF (congestive heart failure) Cigarette smoker Pneumothorax after biopsy (~2021) COPD (chronic obstructive pulmonary disease) Anemia Carotid artery occlusion Coronary artery disease Kidney stone High cholesterol Surgical History History of bronchoscopy (~2021) History of chest tube placement (~2021) History of esophagogastroduodenoscopy (EGD) (~2020) History of lung biopsy (~2021) History of colonoscopy (~2020) History of cystoscopy (~2020) History of CEA (carotid endarterectomy) (~2018) History of lithotripsy (~2002) Hx of CABG (~2018) Family History Father Bone cancer Other No family history of coronary artery disease Social History Household Members: None Housing: House Do you presently have visiting nurse or other home services: Yes (previously had home services) Alcohol intake: former Comment: patient refused alarm Patient Tobacco Use Status: Current everyday Tobacco user Tobacco use type: Cigarette Cigarette Packs Per Day: 0.5 Cigarettes Per Day: 6 Years Smoked: 60 e-Cigarette/Vaping Use: Currently Using Second Hand Smoke Exposure: No Advance Directives Date on File: 10/12/21 service: Yes Current occupational status: retired Cognitive needs: No Hearing needs: No Vision needs: Yes (teading glasses) Questionnaire PHQ-9 Over the last 2 weeks, how often have you been bothered by any of the following problems? 1. Little interest or pleasure in doing things: not at all 2. Feeling down, depressed, or hopeless: not at all 3. Trouble falling or staying asleep, or sleeping too much: not at all 4. Feeling tired or having little energy: not at all 5. Poor appetite or overeating: not at all 6. Feeling bad about yourself - or that you are a failure or have let yourself or your family down: not at all 7. Trouble concentrating on things, such as reading the newspaper or watching television: not at all 8. Moving or speaking so slowly that other people could have noticed. Or the opposite - being so fidgety or restless that you have been moving around a lot more than usual: not at all 9. Thoughts that you would be better off or of hurting yourself in some way: not at all Total score: 0 Source: Developed by Drs. Stone Jeronimo, Carin House, Santino Kelley and colleagues, with an educational phyllis from [employer]. Thrive Questionnaire Date Thrive assessed: 07/17/24 I am a: Patient Within the past 12 months, did the food you bought not last and you didn't have the money to get more?: Never true Within the past 12 months, did you worry whether your food would run out before you got money to buy more?: Never true Do you have trouble paying for medicines?: No Do you have trouble getting transportation to medical appointments?: No Do you have trouble paying your heating and electricity bill?: No Do you have trouble taking care of your child, family member or friend?: No Do you have trouble with day-to-day activities such as bathing, preparing meals, shopping, managing finances, etc.?: No Are you currently unemployed and looking for a job?: No Are you interested in more education?: No THRIVE Score: 0 AUDIT C Alcohol Use Questionnaire (AUDIT-C) 1. How often do you have a drink containing alcohol?: Monthly or less 2. How many drinks containing alcohol do you have on a typical day when you are drinking?: 1 or 2 3. How often do you have six or more drinks on one occasion?: Less than monthly Total Score: 2 SHANNON-7 AMB Questionnaire SHANNON-7 Date SHANNON - 7 assessed: 07/17/24 Feeling nervous, anxious, or on edge: 0 = Not at all Not being able to stop or control worryin = Not at all Worrying too much about different things: 0 = Not at all Trouble relaxin = Not at all Being so restless that it is hard to sit still: 0 = Not at all Becoming easily annoyed or irritable: 0 = Not at all Feeling afraid as if something awful might happen: 0 = Not at all Total SHANNON-7 score (0-4 normal; 5-9 mild; 10-14 moderate; 15-21 severe): 0 Source: Developed by Drs. Stone Jeronimo, Carin House, Santino Kelley and colleagues, with an educational phyllis from [employer]. Physical exam (Primary Care) Vital Signs: Last Vital Signs Temp 97.6 F 07/17/24 14:05 Pulse 68 07/17/24 14:05 BP 120/70 07/17/24 14:05 Pulse Ox 98 07/17/24 14:05 Oxygen Delivery Method Room Air 07/17/24 14:05 BMI result Body Mass Index 20.4 Tobacco/Smoking Status: Tobacco use Status Tobacco use date assessed 07/17/24 07/17/24 14:07 Patient Tobacco Use Status Current everyday Tobacco 07/17/24 14:05 Tobacco use type Cigarette 07/17/24 14:05 e-Cigarette/Vaping Use Currently Using 07/17/24 14:28 PHQ-9: PHQ-9 Score PHQ-9: Total score 0 07/17/24 14:07 Thrive Assessment: Date of Thrive Assessment Date Thrive assessed 07/17/24 07/17/24 14:07 Coding Level of Care Code New Pt Level 4 (45098) Complex EM visit Add On G2211 Diagnoses HTN (hypertension) I10 Assessment & Plan Assessment & Plan (1) HTN (hypertension): Code(s): I10 - Essential (primary) hypertension Category: Medical Plan: BP is in range. Continue medications at same dosage. Plan History of Present Illness The patient is a 79-year-old male presenting for a routine follow-up concerning his previous lung resection linked to Agent Parkman exposure. He acknowledges being short of breath especially while carrying groceries, indicative of diminished pulmonary capacity. His smoking history is significant; he smokes outside to mitigate indoor exposure. He experienced a fall related to hypotension; increased hydration was recommended post-incident to prevent recurrences. The patient has a history of coronary artery disease with multi-vessel coronary artery bypass grafting but maintains active participation in daily activities including driving. However, golfing remains a challenge due to prior lung surgery. His social network comprises of distant children and local relatives, providing some support. Social History - Long history of tobacco use; smokes outside on the sun porch - Lives alone; doesn't experience confusion - Drives independently, including at night, with no visual disturbances - Has two daughters living in [place] and [place] - Formerly active in golfing but hampered by lung condition - Multitude of local cousins providing potential support Review of Systems - Respiratory: Reports shortness of breath when carrying groceries - Neurological: Denies confusion; Reports an episode of fall without loss of consciousness - Ophthalmologic: Denies halos around lights while driving Physical Exam General: Cooperative and healthy appearing Nutritional Appearance: Well nourished Orientation/consciousness: Patient oriented x3 Limitations: No limitations Head: Normal to inspection General: Appearance normal, both eyes and all related structures Neck: Normal visual inspection Chest: Normal palpation of entire chest wall Respiratory: One lung removed, half remaining due to Agent Parkman exposure. Patient experiences shortness of breath when carrying groceries. ormal respiratory effort Neurology: Patient oriented x3. No confusion in the morning or night. Results Plan The patient?s lung function remains a primary consideration post partial-resection, specifically shortness of breath on exertion. Emphasis is placed on precautions to prevent falls via adequate hydration and careful movement. While his preferences for re-engaging in activities like golfing are understood, current limitations are acknowledged with advice to engage comfortably. Smoking cessation is recommended for respiratory health, with his routine follow-up being a conducive time to discuss interventions. Patient was informed and verbally consented to the use of an ambient scribe for clinic note documentation during this visit. Discussion Notes During our discussion, we reviewed the impact of Agent Parkman-related lung resection on his respiratory capacity and the lifestyle modifications necessary to manage postural hypotension and prevent falls. The patient was counseled on the importance of hydration, emphasizing gradual positional changes to reduce fall risk. We talked about limitations in physical exertion, specifically his aim to resume golfing and the associated challenges given his respiratory function. It was acknowledged that while he enjoys golfing, currently it imposes strain due to lung capacity. He was advised to maintain smoking cessation efforts for maximal respiratory health. Follow-up in six months is advised unless any deterioration occurs prior. Patient Instructions - Stay hydrated to prevent dehydration-related dizziness. - Rise slowly from sitting or lying positions. - Engage in activities within your comfort level; avoid strenuous exertion. - Continue smoking cessation efforts. - Monitor for symptoms like increased shortness of breath or dizziness, and seek care if they occur. - Follow up in six months or sooner if necessary.
--- OUTSIDE RECORDS SUMMARY | 2024-07-17 16:15 | XMS_ITS | Clinical Summary ---
Author Organization [facility] Address [address] [place] [address] Care Team Providers Care Bending Roll Hand Name Role Phone Franco Goel MD Primary Care Provider [phone] Allergies No known active allergies Medications Medication Sig Dispensed Refills Start Date End Date Status allopurinol (ZYLOPRIM) 100 mg tabletIndications:Idiop athic gout, unspecified chronicity, unspecified site Take 1 tablet (100 mg total) by mouth daily. 30 tablet 02/18/2023 Active amLODIPine (NORVASC) 10 MG tabletIndications:Essen tial hypertension Take 1 tablet (10 mg total) by mouth daily. 30 tablet 02/18/2023 Active atorvastatin (LIPITOR) 80 MG tabletIndications:Mixed hyperlipidemia Take 1 tablet (80 mg total) by mouth nightly. 30 tablet 02/17/2023 Active levETIRAcetam (KEPPRA) 500 MG tabletIndications:Seizu re (HCC) Take 1 tablet (500 mg total) by mouth 2 (two) times a day. 60 tablet 02/17/2023 Active acetaminophen-codeine (TYLENOL #3) 300-30 MG per tablet Take 1 tablet by mouth every 4 (four) hours as needed. Active albuterol (PROAIR RESPICLICK) 108 (90 Base) MCG/ACT inhaler Inhale. Act yanely ascorbic acid (VITAMIN C) 500 MG tablet Take 1 tablet (500 mg total) by mouth daily. Active aspirin enteric coated (ECOTRIN LOW STRENGTH) 81 MG EC tablet 1 tablet (81 mg total). 10/31/2022 Active loratadine (CLARITIN) 10 MG tablet 1 tablet (10 mg total). 10/31/2022 Active metoPROLOL SUCCINATE (TOPROL-XL) 25 MG 24 hr tablet Take 1 tablet (25 mg total) by mouth 2 (two) times a day. 02/20/2023 Active Vitamin E 400 units Tab Take by mouth. Active cholecalciferol (CHOLECALCIFEROL) 25 MCG (1000 UT) tablet Take 1 tablet (1,000 Units total) by mouth daily. Active calcium citrate (CALCITRATE) 950 (200 Ca) MG tablet 200 mg. 07/30/2022 Active fluticasone (FloNASE) 50 mcg/spray nasal spray INSTILL 1 SPRAY INTO EACH NOSTRIL TWICE DAILY FOR NASAL IRRITATION/INFL AMMATION 10/12/2022 Active folic acid (FOLVITE) 1 MG tablet Take 1 tablet (1 mg total) by mouth daily. Active diphenhydrAMINE HCl, Sleep, (NIGHT TIME SLEEP AID PO) Take by mouth nightly as needed. Active Active Problems Problem Noted Date Diagnosed Date Syncope and collapse 02/15/2023 Social History Tobacco Use Types Packs/Day Years Used Date Smoking Tobacco: Unknown Tobacco Cessation:Counseling Given: Not Answered Alcohol Use Standard Drinks/Week Comments Not Currently 0 (1 standard drink = 0.6 oz pur e alcohol) [facility] Utilities Answer Date Recorded In the past 12 months has th e [employer], gas, oil, or water [employer] threatened to shut off services in your [...] place to sleep or slept in a alf (including now)? No 02/17/2023 Sex and Gender Information Value Date Recorded Sex Assigned at Not on file Gender Identity Not on file Sexual Orientation Not on file Last Filed Vital Signs Vital Sign Reading Time Taken Comments Blood Pressure 157/72 04/07/2023 11:16 AM EST Pulse 75 04/07/2023 11:16 AM EST Temperature 36.7 ??C (98 ??F) 04/07/2023 11:16 AM EST Respiratory Rate 18 02/17/2023 12:02 PM EST Oxygen Saturation 100% 04/07/2023 11:16 AM EST Inhaled Oxygen Concentration - - Weight 64 kg (141 lb) 04/07/2023 11:16 AM EST Height 175.3 cm (5' 9 ) 04/07/2023 11:16 AM EST Body Mass Index 20.82 04/07/2023 11:16 AM EST Plan of Treatment Health Maintenance Due Date Last Done Comments Hepatitis C Virus Screening 1945 DTaP/Tdap/Td Vaccines (1 - Tdap) 1964 Pneumococcal Vaccines 50+ (1 of 2 - PCV) 1964 Zoster (Shingles) Vaccine (1 of 2) 1995 RSV Vaccine 60 years and older and Patients (1 - 1-dose 75+ series) 2020 Influenza Vaccine 11/09/2023 02/13/2023, , 12/09/2021, Additional history exists COVID-19 Vaccine ( season) 2023 03/11/2022, 04/10/2021, 03/08/2021, Additional history exists Hepatitis B Vaccines Aged Out No long er eligible based on patient's age to complete this topic Advance Directives * Full Code (Latest Code Status on File) Date Activated Date Inactivated Comments 02/15/2023 4:59 AM Care Teams Bending Roll Hand Relationship Specialty Start Date End Date Franco Goel MD [address] [place] [address] [place] [address] PCP - General 02/15/23
--- OUTSIDE RECORDS SUMMARY | 2024-07-17 16:15 | XMS_ITS ---
Author Organization [facility] Address [address] [place] [address] Care Team Providers Care Corral Boss Name Role Phone Arnulfo Angeles PA-C Primary Care Provider Active Problems Problem Noted Date Diagnosed Date Primary adenocarcinoma of right lung 09/07/2021 Current Oncology Plans No current plan information found. Past Plans ONCOLOGY TREATMENT Plan Name Start Date Discontinue Date Treatment Medications Discontinue Reason Plan Provider [facility] 05/05/2022 albuterol (PROVENTIL)atezolizumab (TECENTRIQ) infusiondiphenhydrAMINE (BENADRYL)EPINEPHrinefa motidine (PF) (PEPCID)hydrocortisone (SOLU-CORTEF) IVmeperidine (DEMEROL) 25 MG/MLSaline Flush 0.9 %sodium chloride (NS) 0.9 %sodium chloride 0.9% bolus (NS) Therapy Complete Kedar Shoemaker MD 1 of 12 cycles started [facility] OP PEMETREXED+CA RBOPLATIN (AUC=6) 09/15/19 22 11/22/2021 [...] treatments are documented for this patient in [facility]. Treatments may have been administered in another system.
--- OUTSIDE RECORDS SUMMARY | 2024-07-17 16:15 | XMS_ITS | Clinical Summary ---
Author Organization [facility] Address [address] [place] [address] Care Team Providers Care Political Organizer Name Role Phone Arnulfo Angeles PA-C Primary [...] age to complete this topic Care Teams Political Organizer Relationship Specialty Start Date End Date Arnulfo Angeles PA-C [address] [facility] [place] [address] PCP - General Physician Pick And Shovel Man 08/20/21
--- OUTSIDE RECORDS SUMMARY | 2024-07-17 16:15 | XMS_ITS | Encounter Summary ---
Author Organization [facility] Address [address] [place] [address] Care Team Providers Care Log Rider Name Role Phone Franco Goel MD Primary Care Provider [phone] Encounter Details Date Type Department Care Team (Late st Contact Info) Description 2023 Scanned Document [facility] [address] [facility] [address] [place] [address] Radiology, Scan Social History Tobacco Use Types Packs/Day Years Used Date Smoking Tobacco: Unknown Alcohol Use Standard Drinks/Week Comments Not Currently 0 (1 standard drink = 0.6 oz pur e alcohol) [facility] Utilities Answer Date Recorded In the [...] place to sleep or slept in a retirement (including now)? No 02/17/2023 Sex and Gender [...] on filedocumented in this encounter Care Teams Log Rider Relationship Specialty Start Date End Date Franco Goel MD [address] [place] [address] [place] [address] PCP - General 02/15/23 documented as of this encounter
--- OUTSIDE RECORDS SUMMARY | 2024-07-17 16:15 | XMS_ITS | Clinical Summary ---
Author Organization [facility] Address [address] [place] [address] Phone Care Team Providers Care Supervisor Bleach Plant Name Role Phone Franco Goel MD Primary [...] Medical Devices Not on file Care Teams Supervisor Bleach Plant Relationship Specialty Start Date End Date Franco Goel MD [address] [place] [address] [place] [address] PCP - General Internal Medicine 09/19/18 Additional Source Comments The information contained in this document represents components of the legal health record. It is not the complete legal health record.[facility]
--- OUTSIDE RECORDS SUMMARY | 2024-07-17 16:15 | XMS_ITS | Clinical Summary ---
Author Organization [facility] Address [address] [place] [address] Phone Care Team Providers Care Candle Molder Machine Name Role Phone Arnulfo Angeles Primary Care Provider [phone] Allergies No known active allergies Medications acetaminophen-cod [...] Encounters Date Type Department Care Team Description 07/08/2024 Telephone [facility] Hematology Oncology [address] [place] [address] [place] [address] Chest appt 04/26/2024 Telephone [facility] Hematology Oncology [address] [place] [address] Castro Farias MD from Last 3 Months Surgical History Surgery [...] Care Team (Late st Contact Info) Description 09/10/2024 11:00 AM EDT Appointment [facility] CT Scan [address] [place] [phone] 10/01/2024 9:15 AM EDT Office Visit [facility] Hematology Oncology [address] [place] [phone] Castro Farias MD [address] [place] [phone] Health Maintenance Due Date Last Done Comments [...] 50+ Years Completed 06/19/2020, 09/12/2018 RSV Immunization Adult Patients Completed 04/25/2023 COVID-19 Vaccine Completed 02/16/2024, 09/2022, [...] age to complete this topic Meningococcal B Vaccine Aged Out No l onger eligible based on patient's age to complete [...] BMP Blood Test Abstracted us Historical Provider HEALTH MAINTENANCE Final Result from Last 3 Months or Most Recently Relevant to Health Maintenance Insurance [facility] Advance Directives Documents on File Type Date Recorded Patient Assessment Counselor Expl anation Health Care Decision (hx) 07/29/2021 [...] (hx) 07/29/2021 AD PATEL DIRECTIVE Care Teams Candle Molder Machine Relationship Specialty Start Date End Date Arnulfo Angeles PA [address] [place] [address] PCP - General Medical Device Assembler 06/25/21
--- OUTSIDE RECORDS SUMMARY | 2024-07-17 16:15 | XMS_ITS | Encounter Summary ---
Author Organization [facility] Address [address] [place] [address] Care Team Providers Care Med Care Manager Name Role Phone Franco Goel MD Primary Care Provider [phone] Encounter Details Date Type Department Care Team (Late st Contact Info) Description 03/03/2023 Scanned Document [facility] HIM [address] [facility] [address] [place] [address] Radiation Therapy, Scan Social History Tobacco Use Types Packs/Day Years Used Date Smoking Tobacco: Unknown Alcohol Use Standard Drinks/Week Comments Not Currently 0 (1 standard drink = 0.6 oz pur e alcohol) [facility] Utilities Answer [...] place to sleep or slept in a [place] health care facility (including now)? No 02/17/2023 Sex and Gender [...] on filedocumented in this encounter Care Teams Med Care Manager Relationship Specialty Start Date End Date Franco Goel MD [address] [place] [address] [place] [address] PCP - General 02/15/23 documented as of this encounter
--- OUTSIDE RECORDS SUMMARY | 2024-07-17 16:15 | XMS_ITS | Clinical Summary ---
Author Organization Unknown Care Team Providers Care Chips Screen Tender Name Role Phone ELVA MARQUEZ, BARRON Unavailable Unavailjamshid HERNANDES PT, MARCELLA Unavailable Unavailable ERNESTINA RN, AMARI Unavailable Unavailable Payers Payer Name Policy Type Policy Number Effective Date Expira tion Date MEDICARE - [facility] - [place] [id number] Problems Condition Name Condition Details Condition Category Status Onset Date Resolution Date Last Treatment Date Treating Clinician Comments CODING TO BE COMPLETED AFTER CLINICAL DOCUMENTATIO N REVIEW Active 07-05 00:00: 00 UNSPECIFIED FALL, INITIAL ENCOUNTER Active 07-05 00:00: 00 ESSENTIAL (PRIMARY) HYPERTENSION Active 07-05 00:00: 00 Allergies, Adverse Reactions, Alerts Allergy Name Allergy Type Status Severity Reaction(s) Onset Date Inactive Date Treating Clinician Comments NKA Propensity to adverse reactions Active 2024-07 09:59:1 7 Medications Ordered Medication Name Filled Medication Name Start Date Stop Date Current Medication? Ordering Clinician Indication Dosage Frequency Signature (SIG) Comments Components allopurinol 100 mg tablet 10-05 00:00: 00 07-09 00:00 :00 No [id number] 1 tablet DAILY 1 tablet DAILY (route: oral) Med Classific ation: Gout and Hyperuric emia Therapy amlodipine 10 mg tablet 10-05 00:00: 00 07-09 00:00 :00 No [id number] 1 tablet DAILY 1 tablet DAILY (route: oral) Med Classific ation: Cardiovas cular Therapy Agents Aspirin Childrens 81 mg chewable tablet 10-05 00:00: 00 07-09 00:00 :00 No [id number] 1 tablet DAILY 1 tablet DAILY (route: oral) Med Classific ation: Hematolog ical Agents atorvastati n 10 mg tablet 10-05 00:00: 00 07-09 00:00 :00 No [id number] 1 tablet DAILY 1 tablet DAILY (route: oral) Med Classific ation: Cardiovas cular Therapy Agents azithromyci n 500 mg tablet 10-05 00:00: 00 10-08 23:59 :00 No [id number] 1 tablet DAILY 1 tablet DAILY (route: oral) Med Classific ation: Anti-Infe ctive Agents cefpodoxime 200 mg tablet 10-05 00:00: 00 07-09 00:00 :00 No [id number] 1 tablet 2 TIMES DAILY 1 tablet 2 TIMES DAILY (route: oral) Med Classific ation: Anti-Infe ctive Agents docusate sodium 100 mg capsule 10-05 00:00: 00 07-09 00:00 :00 No [id number] 1 capsule 2 TIMES DAILY 1 capsule 2 TIMES DAILY (route: oral) Med Classific ation: Gastroint estinal Therapy Agents ferrous sulfate 134 mg (27 mg iron) tablet 10-05 00:00: 00 07-09 00:00 :00 No [id number] 1 tablet DAILY 1 tablet DAILY (route: oral) Med Classific ation: Electroly te Balance-N utritiona l Products folic acid 1 mg tablet 10-05 00:00: 00 07-09 00:00 :00 No [id number] 1 tablet DAILY 1 tablet DAILY (route: oral) Med Classific ation: Electroly te Balance-N utritiona l Products lactulose 20 gram/30 mL oral solution 10-05 00:00: 00 07-09 00:00 :00 No [id number] 30 mL DAILY 30 mL DAILY (route: oral) Med Classific ation: Gastroint estinal Therapy Agents metoprolol tartrate 100 mg tablet 10-05 00:00: 00 07-09 00:00 :00 No [id number] 1 tablet DAILY 1 tablet DAILY (route: oral) Med Classific ation: Cardiovas cular Therapy Agents multivitami n tablet 10-05 00:00: 00 07-09 00:00 :00 No [id number] 1 tablet DAILY 1 tablet DAILY (route: oral) Med Classific ation: Electroly te Balance-N utritiona l Products nystatin 100,000 unit/mL oral suspension 10-05 00:00: 00 10-11 23:59 :00 No [id number] 5 mL 4 TIMES DAILY 5 mL 4 TIMES DAILY (route: oral) Med Classific ation: Mouth-Thr oat-Denta l - Preparati ons ondansetron 8 mg disintegrat ing tablet 10-05 00:00: 00 07-09 00:00 :00 No [id number] 1 tablet EVERY 8 HOURS 1 tablet EVERY 8 HOURS (route: oral) Med Classific ation: Gastroint estinal Therapy Agents ProAir HFA 90 mcg/actuati on aerosol inhaler 10-05 00:00: 00 07-09 00:00 :00 No [id number] 2 puff EVERY 6 HOURS 2 puff EVERY 6 HOURS (route: inhalation ) Med Classific ation: Respirato ry Therapy Agents pyridoxine (vitamin B6) 100 mg tablet 10-05 00:00: 00 07-09 00:00 :00 No [id number] 1 tablet DAILY 1 tablet DAILY (route: oral) Med Classific ation: Electroly te Balance-N utritiona l Products megestrol 400 mg/10 mL (40 mg/mL) oral suspension 12 00:00: 00 07-09 00:00 :00 No [id number] 40 mg EVERY 6 HOURS 40 mg EVERY 6 HOURS (route: oral) Med Classific ation: Eating Disorder Therapy Immunizations Ordered Immunization Name Filled Immunization Name Date Status Comments Refusal Reason INFLUENZA, TIV (INACTIVATED) 2024-01-10 00:00:00 COVID-19, COVID-19 2023-12-13 00:00:00 Vital Signs Vital Name Observation Time Observation Value Commen ts Temperature 2024-07-16 09:06:00.000 97.5 [degF] Temperature 2024-07-15 14:00:00.000 97.6 [degF] Temperature 2024-07-09 10:04:00.000 97.3 [degF] BMI (%) 2024-07-09 10:04:00.000 22 kg/m2 Height 2024-07-09 10:04:00.000 69 [in_us] Pulse 2024-07-16 09:09:00.000 60 /min Pulse 2024-07-15 14:00:00.000 72 /min Pulse 2024-07-09 10:04:00.000 76 /min O2 Saturation (%) 2024-07-16 09:06:00.000 99 % O2 Saturation (%) 2024-07-09 10:04:00.000 97 % Respirations 2024-07-16 09:06:00.000 18 /min Respirations 2024-07-15 14:00:00.000 18 /min Respirations 2024-07-09 10:04:00.000 18 /min Weight (lbs) 2024-07-09 10:04:00.000 149 [lb_av] Systolic Blood Pressure 2024-07-16 09:06:00.000 140 mm [Hg] Systolic Blood Pressure 2024-07-15 14:00:00.000 138 mm [Hg] Systolic Blood Pressure 2024-07-09 10:04:00.000 146 mm [Hg] Diastolic Blood Pressure 2024-07-16 09:06:00.000 62 mm [Hg] Diastolic Blood Pressure 2024-07-15 14:00:00.000 82 mm [Hg] Diastolic Blood Pressure 2024-07-09 10:04:00.000 82 mm [Hg] Plan of Treatment Planned Activity Planned Date Details Comments Future Scheduled Test SKILLED NU RSE TO EVALUATE PATIENT, IDENTIFY PRIMARY AND CO-MORBID CONDITIONS CODED PER CODING GUIDELINES, AND DEVELOP PATIENT SPECIFIC PLAN OF CARE THAT INCLUDES PATIENT GOAL FOR HOME HEALTH. [code = SKILLED NURSE TO EVALUATE PATIENT, IDENTIFY PRIMARY AND CO-MORBID CONDITIONS CODED PER CODING GUIDELINES, AND DEVELOP PATIENT SPECIFIC PLAN OF CARE THAT INCLUDES PATIENT GOAL FOR HOME HEALTH.] Future Scheduled Test SKILLED NU RSE TO REVIEW PATIENT MEDICATIONS (PRESCRIPTION/OTC). INSTRUCT PATIENT/CAREGIVER ON ALL MEDICATIONS INCLUDING PURPOSE, WHEN TO TAKE, IMPORTANCE OF MEDICATION ADHERENCE, MONITORING OF EFFECTIVENESS, ADVERSE DRUG REACTIONS, POSSIBLE SIDE EFFECTS, AND WHEN TO NOTIFY AGENCY OR PHYSICIAN/PROVIDER OF ANY CONCERNS. [code = SKILLED NURSE TO REVIEW PATIENT MEDICATIONS (PRESCRIPTION/OTC). INSTRUCT PATIENT/CAREGIVER ON ALL MEDICATIONS INCLUDING PURPOSE, WHEN TO TAKE, IMPORTANCE OF MEDICATION ADHERENCE, MONITORING OF EFFECTIVENESS, ADVERSE DRUG REACTIONS, POSSIBLE SIDE EFFECTS, AND WHEN TO NOTIFY AGENCY OR PHYSICIAN/PROVIDER OF ANY CONCERNS.] Future Scheduled Test PATIENT VAZQUEZ S A RISK OF HOSPITALIZATION AND ED USE. SKILLED NURSE TO ESTABLISH SUPPORT MEASURES TO MINIMIZE RISK OF HOSPITALIZATION AND ED USE, AND INSTRUCT PATIENT/CAREGIVER ON METHODS TO REDUCE AVOIDABLE HOSPITALIZATION AND ED USE. [code = PATIENT HAS A RISK OF HOSPITALIZATION AND ED USE. SKILLED NURSE TO ESTABLISH SUPPORT MEASURES TO MINIMIZE RISK OF HOSPITALIZATION AND ED USE, AND INSTRUCT PATIENT/CAREGIVER ON METHODS TO REDUCE AVOIDABLE HOSPITALIZATION AND ED USE.] Future Scheduled Test SKILLED NU RSE TO PROVIDE INSTRUCTION TO PATIENT/CAREGIVER RELATED TO DISCHARGE PLANNING. [code = SKILLED NURSE TO PROVIDE INSTRUCTION TO PATIENT/CAREGIVER RELATED TO DISCHARGE PLANNING.] Future Scheduled Test SKILLED NU RSE TO PERFORM ENVIRONMENTAL SAFETY RISK ASSESSMENT AND FALL RISK ASSESSMENT AND PROVIDE INSTRUCTION TO IMPLEMENT ENVIRONMENTAL SAFETY AND FALL PREVENTION STRATEGIES THROUGHOUT THE CERTIFICATION PERIOD. SKILLED NURSE WILL MAINTAIN SITUATIONAL AWARENESS AND WILL NOTIFY CLINICAL EMPLOYMENT APPEALS EXAMINER AND PHYSICIAN/PROVIDER WITH ANY CHANGE IN CONDITION. [code = SKILLED NURSE TO PERFORM ENVIRONMENTAL SAFETY RISK ASSESSMENT AND FALL RISK ASSESSMENT AND PROVIDE INSTRUCTION TO IMPLEMENT ENVIRONMENTAL SAFETY AND FALL PREVENTION STRATEGIES THROUGHOUT THE CERTIFICATION PERIOD. SKILLED NURSE WILL MAINTAIN SITUATIONAL AWARENESS AND WILL NOTIFY CLINICAL EMPLOYMENT APPEALS EXAMINER AND PHYSICIAN/PROVIDER WITH ANY CHANGE IN CONDITION.] Future Scheduled Test SKILLED NU RSE FOR [...] REGIMEN.] Future Scheduled Test SKILLED NU RSE TO ASSESS PATIENT'S SKIN INTEGRITY AND INSTRUCT PATIENT/CAREGIVER ON MEASURES TO PREVENT PRESSURE ULCERS. [code = SKILLED NURSE TO ASSESS PATIENT'S SKIN INTEGRITY AND INSTRUCT PATIENT/CAREGIVER ON MEASURES TO PREVENT PRESSURE ULCERS.] Future Scheduled Test SKILLED NU RSE TO INSTRUCT PATIENT/CAREGIVER ON COPD TO INCLUDE TEACHING AND SELF-MANAGEMENT RELATED TO COPD DISEASE PROCESS, SIGNS AND SYMPTOMS, AND COMPLICATIONS. [code = SKILLED NURSE TO INSTRUCT PATIENT/CAREGIVER ON COPD TO INCLUDE TEACHING AND SELF-MANAGEMENT RELATED TO COPD DISEASE PROCESS, SIGNS AND SYMPTOMS, AND COMPLICATIONS.] Future Scheduled Test SKILLED NU RSE TO PROVIDE TEACHING ON SIGNS AND SYMPTOMS AND MANAGEMENT OF HYPERTENSION. [code = SKILLED NURSE TO PROVIDE TEACHING ON SIGNS AND SYMPTOMS AND MANAGEMENT OF HYPERTENSION.] Future Scheduled Test SKILLED NU RSE FOR O/A AND TEACHING ON SIGNS AND SYMPTOMS AND MANAGEMENT OF HYPOTENSION [code = SKILLED NURSE FOR O/A AND TEACHING ON SIGNS AND SYMPTOMS AND MANAGEMENT OF HYPOTENSION] Future Scheduled Test PHYSICAL T HERAPIST TO EVALUATE PATIENT FOR ENDURANCE [code = PHYSICAL THERAPIST TO EVALUATE PATIENT FOR ENDURANCE] Future Scheduled Test SKILLED NU RSE FOR O/A AND TEACHING RELATED TO LUNG CANCER INCLUDING SIGNS AND SYMPTOMS OF DISEASE PROGRESSION, TREATMENT, AND MANAGEMENT OF POTENTIAL SIDE EFFECTS. [code = SKILLED NURSE FOR O/A AND TEACHING RELATED TO LUNG CANCER INCLUDING SIGNS AND SYMPTOMS OF DISEASE PROGRESSION, TREATMENT, AND MANAGEMENT OF POTENTIAL SIDE EFFECTS.] Future Scheduled Test PHYSICAL T HERAPIST TO EVALUATE PATIENT SECONDARY TO FUNCTIONAL DEFICITS/SAFETY CONCERNS. PHYSICAL THERAPY TO ESTABLISH /UPGRADE/DOWNGRADE THERAPEUTIC EXERCISE PROGRAM AND INSTRUCT PATIENT/CAREGIVER ON EXERCISE PRECAUTIONS WITH WRITTEN HOME PROGRAM. MAY INCLUDE PROM, AAROM, AROM, RROM APPROPRIATE TO IMPROVE FUNCTIONAL STRENGTH AND RANGE OF MOTION. PHYSICAL THERAPY TO INSTRUCT PATIENT/CAREGIVER ON SAFE TRANSFER TECHNIQUES USING PROPER BODY MECHANICS AND EQUIPMENT. PHYSICAL THERAPY TO INSTRUCT PATIENT/CAREGIVER ON GAIT TRAINING TECHNIQUES USING APPROPRIATE ASSISTIVE DEVICE, PROPER BODY MECHANICS TO IMPROVE MOBILITY, AND PREVENT INJURY OF PATIENT AND/OR CAREGIVER. PHYSICAL THERAPY TO ASSESS AND RECOMMEND HOME SAFETY ADAPTATIONS AND EDUCATE PATIENT /CAREGIVER ON FALL PREVENTION STRATEGIES. SUMMARY OF THERAPY EVAL/ASSESSMENT FINDINGS AND REASON(S) SKILLS OF A THERAPIST ARE INDICATED: [id number] PHYSICAL THERAPY EVALUATION COMPLETED. PATIENT IS A 79 YO MALE SP HOSPITALIZATION WITH RECENT FALLS DUE TO ORTHOSTATIC HYPOTENSION. PATIENT REPORTS 5 FALLS IN THE PAST FEW MONTHS. PMHX HTN,HLD,CKD II,CAD, SD,CABG X5,LUNG CANCER WITH R UPPER LOBE REMOVED,CAROTID ARTERY STENOSIS, GOUT, DIARRHEA, DIVERTICULITIS, SOB. PATIENT LIVES IN [place] WITH RAMP TO ENTER. VITAL SIGNS STABLE, NO REPORTED PAIN. BLE STRENGTH 3+/5. BED MOBILITY IS INDEPENDENT, TRANSFERS WITH SUPERVISION TO [facility] A. GAIT WITH CANE OR RW ON EVEN SURFACES X50FT WITH SHUFFLING GAIT. TUG SCORE 18 SECONDS INDICATING A FALL RISK. PATIENT IS HOMEBOUND AND REQUIRES PHYSICAL ASSIST AND DEVICE TO SAFELY LEAVE HOME. PATIENT IS AGREEABLE TO PHYSICAL THERAPY INTERVENTION 2W3 TO ADDRESS DEFICITS [code = PHYSICAL THERAPIST TO EVALUATE PATIENT SECONDARY TO FUNCTIONAL DEFICITS/SAFETY CONCERNS. PHYSICAL THERAPY TO ESTABLISH /UPGRADE/DOWNGRADE THERAPEUTIC EXERCISE PROGRAM AND INSTRUCT PATIENT/CAREGIVER ON EXERCISE PRECAUTIONS WITH WRITTEN HOME PROGRAM. MAY INCLUDE PROM, AAROM, AROM, RROM APPROPRIATE TO IMPROVE FUNCTIONAL STRENGTH AND RANGE OF MOTION. PHYSICAL THERAPY TO INSTRUCT PATIENT/CAREGIVER ON SAFE TRANSFER TECHNIQUES USING PROPER BODY MECHANICS AND EQUIPMENT. PHYSICAL THERAPY TO INSTRUCT PATIENT/CAREGIVER ON GAIT TRAINING TECHNIQUES USING APPROPRIATE ASSISTIVE DEVICE, PROPER BODY MECHANICS TO IMPROVE MOBILITY, AND PREVENT INJURY OF PATIENT AND/OR CAREGIVER. PHYSICAL THERAPY TO ASSESS AND RECOMMEND HOME SAFETY ADAPTATIONS AND EDUCATE PATIENT /CAREGIVER ON FALL PREVENTION STRATEGIES. SUMMARY OF THERAPY EVAL/ASSESSMENT FINDINGS AND REASON(S) SKILLS OF A THERAPIST ARE INDICATED: [id number] PHYSICAL THERAPY EVALUATION COMPLETED. PATIENT IS A 79 YO MALE SP HOSPITALIZATION WITH RECENT FALLS DUE TO ORTHOSTATIC HYPOTENSION. PATIENT REPORTS 5 FALLS IN THE PAST FEW MONTHS. PMHX HTN,HLD,CKD II,CAD, SD,CABG X5,LUNG CANCER WITH R UPPER LOBE REMOVED,CAROTID ARTERY STENOSIS, GOUT, DIARRHEA, DIVERTICULITIS, SOB. PATIENT LIVES IN [facility] WITH RAMP TO ENTER. VITAL SIGNS STABLE, NO REPORTED PAIN. BLE STRENGTH 3+/5. BED MOBILITY IS INDEPENDENT, TRANSFERS WITH SUPERVISION TO [facility] A. GAIT WITH CANE OR RW ON EVEN SURFACES X50FT WITH SHUFFLING GAIT. TUG SCORE 18 SECONDS INDICATING A FALL RISK. PATIENT IS HOMEBOUND AND REQUIRES PHYSICAL ASSIST AND DEVICE TO SAFELY LEAVE HOME. PATIENT IS AGREEABLE TO PHYSICAL THERAPY INTERVENTION 2W3 TO ADDRESS DEFICITS ] Goal Patient Goal - NO MORE FALLS Goal Provider Goal - A PLAN OF CARE WILL BE ESTABLISHED THAT MEETS PATIENT'S SNF NEEDS AND INCLUDES PATIENT GOAL FOR HOME HEALTH. Goal Provider Goal - PATIENT/CAREGIVER WILL VERBALIZE UNDERSTANDING OF EDUCATION PROVIDED ON MEDICATIONS BY THE END OF THE CERTIFICATION PERIOD. Goal Provider Goal - PATIENT WILL HAVE SUPPORT MEASURES ESTABLISHED TO PREVENT HOSPITALIZATION AND ED USE AND PATIENT/CAREGIVER WILL VERBALIZE/DEMONSTRATE METHODS TO REDUCE AVOIDABLE HOSPITALIZATION AND ED USE BY END OF EPISODE. Goal Provider Goal - PATIENT/CAREGIVER WILL VERBALIZE UNDERSTANDING OF DISCHARGE PLANNING INSTRUCTIONS BY DATE OF DISCHARGE. Goal Provider Goal - PATIENT/CAREGIVER WILL VERBALIZE/DEMONSTRATE EFFECTIVE ENVIRONMENTAL SAFETY AND FALL PREVENTION STRATEGIES, WILL REMAIN SAFE IN THE COMMUNITY, AND WILL BE FREE OF DANGER TO SELF AND OTHERS THROUGHOUT THE CERTIFICATION PERIOD. Goal Provider Goal - PATIENT/CAREGIVER WILL DEMONSTRATE UNDERSTANDING OF PHARMACOLOGIC AND NONPHARMACOLOGIC PAIN CONTROL MEASURES AND PATIENT WILL HAVE IMPROVEMENT IN PAIN INTERFERING WITH ACTIVITY EVIDENCED BY PAIN CONTROLLED AT LEVEL OF 7 OR LESS BY END OF CERTIFICATION PERIOD. Goal Provider Goal - PATIENT/CAREGIVER WILL VERBALIZE UNDERSTANDING OF PRESSURE ULCER PREVENTION BY END OF THE EPISODE. Goal Provider Goal - PATIENT/CAREGIVER WILL VERBALIZE/DEMONSTRATE KNOWLEDGE AND MANAGEMENT OF COPD BY END OF EPISODE. Goal Provider Goal - PATIENT/CAREGIVER WILL VERBALIZE SIGNS AND SYMPTOMS OF HYPERTENSION AND WILL BE ABLE TO DEMONSTRATE ABILITY TO MANAGE EXACERBATION BY END OF THE EPISODE. Goal Provider Goal - PATIENT/CAREGIVER WILL VERBALIZE SIGNS AND SYMPTOMS OF HYPOTENSION AND WILL BE ABLE TO DEMONSTRATE ABILITY TO MANAGE EXACERBATION BY END OF THE EPISODE. Goal Provider Goal - A PHYSICAL THERAPY EVALUATION TO BE COMPLETED WITH RECOMMENDATIONS AND/OR WRITTEN PLAN OF TREATMENT ESTABLISHED FOR PHYSICIANS SIGNATURE. Goal Provider Goal - PATIENT/CAREGIVER WILL VERBALIZE/DEMONSTRATE MANAGEMENT OF LUNG CANCER/NEOPLASM DISEASE AND THE SIDE EFFECTS OF TREATMENTS DURING THIS EPISODE. Goal Provider Goal - PHYSICAL THERAPY EVALUATION TO BE COMPLETED WITH RECOMMENDATIONS AND/OR WRITTEN TREATMENT PLAN OF CARE ESTABLISHED FOR THE PHYSICIANS SIGNATURE PATIENT/CAREGIVER WILL PERFORM THERAPEUTIC EXERCISE/S AND DEMONSTRATE PARTICIPATION IN A HOME PROGRAM. PATIENT/CAREGIVER WILL DEMONSTRATE SAFE TRANSFERS USING APPROPRIATE ASSISTIVE DEVICE, BODY MECHANICS AND EQUIPMENT. PATIENT/CAREGIVER WILL DEMONSTRATE IMPROVED GAIT TECHNIQUES TO MINIMIZE RISK OF INJURY. PATIENT/CAREGIVER WILL DEMONSTRATE/VERBALIZE UNDERSTANDING OF RECOMMENDATIONS TO INCREASE SAFETY IN THE HOME AND FALL PREVENTION. Progress Notes Progress Notes <paragraph>[Visit Date: 2024 by ISABEL SWENSON LPN]:</paragraph><paragraph>SNV 07/16/24 ABNORMAL VITALS: NA FALLS: NA OBSERVATION AND ASSESSMENT PROVIDED: ALERT AND ORIENTED X4 PLEASANT DEMEANOR PT AMBULATING AROUND HOME UPON ARRIVAL. HOME FREE OF CLUTTER AND FALL RISK OBSTACLES. VITALS WNL OF PT BASELINE. NO SIGNS OF DISTRESS. SPEAKING CLEARLY IN FULL SENTENCES. PT DENIES SOB. SKIN INTACT. BOWELS AND BLADDER FUNCTIONS REMAIN INTACT. NO CHANGES REPORTED TO APPETITE. PT ENJOYS SPEAKING ABOUT HIS CATS, AND HISTORY IN . PT DENIES ANY NEW AREAS OF CONCERN AT THIS TIME. EDUCATION PROVIDED TO CALL OFFICE IF ANYTHING COMES UP BEFORE NEXT VISIT. PT STATES HE UNDERSTANDS. REVIEWED NEXT SCHEDULED VISIT PRIOR TO LEAVING. PT STATES HE UNDERSTANDS AND IS AGREEABLE. EDUCATION: SIT UP FROM BED BEFORE STANDING AND WALKING TO ALLOW BP TO STABLIZE PREVENTING RISK OF FALLS INTERVENTIONS NEEDED AT NEXT VISIT: ASSESSMENT COMMUNICATION WITH MD: GENARO NEXT MD APPOINTMENT: PR APPOINTMENT 07/17/24 PATIENT AND CAREGIVER INSTRUCTED TO CALL [facility] WITH ANY QUESTIONS OR CONCERNS AND/OR CHANGES IN CONDITION, PATIENT STATES UNDERSTANDING. ISABEL SWENSON LPN</paragraph> <paragraph>[Visit Date: 2024 by MARCELLA HERNANDES PT]:</paragraph><paragraph>[id number] PHYSICAL THERAPY EVALUATION COMPLETED. PATIENT IS A 79 YO MALE SP HOSPITALIZATION WITH RECENT FALLS DUE TO ORTHOSTATIC HYPOTENSION. PATIENT REPORTS 5 FALLS IN THE PAST FEW MONTHS. PMHX HTN,HLD,CKD II,CAD, SD,CABG X5,LUNG CANCER WITH R UPPER LOBE REMOVED,CAROTID ARTERY STENOSIS, GOUT, DIARRHEA, DIVERTICULITIS, SOB. PATIENT LIVES IN [place] WITH RAMP TO ENTER. VITAL SIGNS STABLE, NO REPORTED PAIN. BLE STRENGTH 3+/5. BED MOBILITY IS INDEPENDENT, [place] [facility] [place] WITH CANE OR RW ON EVEN SURFACES X50FT WITH SHUFFLING GAIT. TUG SCORE 18 SECONDS INDICATING A FALL RISK. PATIENT IS HOMEBOUND AND REQUIRES PHYSICAL ASSIST AND DEVICE TO SAFELY LEAVE HOME. PATIENT IS AGREEABLE TO PHYSICAL THERAPY INTERVENTION 2W3 TO ADDRESS DEFICITS</paragraph> Encounters Start Date/Time End Date/Time Encounter Type Admission Type Attending Clinicians Care Facility Care Department Encounter ID Discharge Date Discharge Status Discharge Condition Discharge Reason Percent Goals Met 2024-07-09 00:00:00 2024-09-06 00:00:00 Outpatient AMARI ARELLANO [facility] [id number]
== END 2024-07-17 15:08 | disposition home or self-care (01) ==
LOC: HO.HMCHD 13:59
PROVIDERS: PCP Internal Medicine; Visit Provider Internal Medicine
DX: I10 Essential (primary) hypertension (principal)

== ENCOUNTER → 2024-07-17 13:59 | Outpatient (BNVA) | payer MEDICARE, SELFPAY | PROVIDERS: PCP Internal Medicine; Visit Provider Internal Medicine | DX: I10 Essential (primary) hypertension (principal) | CPT/HCPCS: 96127; 99202 ==

== ENCOUNTER 2024-10-16 13:27 | Outpatient (AMB) | payer OTHER, SELFPAY ==
[2024-10-16 09:24] VITALS: BP 124/70; PULSE 68; TEMP 36.8; O2SAT 99; BMI 19.8
--- NOTE | 2024-10-16 09:24 | MHC.PC.OV ---
Vital Signs 10/16/24 09:24 Height 5 ft 9 in Weight 134 lb BMI 19.8 BP 124/70 Blood Pressure Location Lt brachial Position Sitting Pulse 68 Pulse Source Pulse Oximeter Temp 98.3 F Temp Source Axillary Pulse Oximetry (%) 99 Oxygen Delivery Method Room Air Intake Visit Reasons: S/P rehab. [employer] Project Manager Required: No Accompanied by: Self / Same As Patient Allergies No Known Allergies (No Known Allergies*) Allergy (Verified 07/17/24 14:06) Tobacco use date assessed: 10/16/24 Fall risk assessment: 1 Fall in past year Last assessed Fall Risk: 10/16/24 Dental Screening Dental Screen Date: 10/16/24 Did you have a dental visit in the last 12 months?: Yes Did you have a dental problem in the last 6 months where you did not have access to dental care?: No PFSH Medical History HTN (hypertension) COVID-19 virus infection NSVT (nonsustained ventricular tachycardia) CHF (congestive heart failure) Cigarette smoker Pneumothorax after biopsy (~2021) COPD (chronic obstructive pulmonary disease) Anemia Carotid artery occlusion Coronary artery disease Kidney stone High cholesterol Surgical History History of bronchoscopy (~2021) History of chest tube placement (~2021) History of esophagogastroduodenoscopy (EGD) (~2020) History of lung biopsy (~2021) History of colonoscopy (~02/08/21) History of cystoscopy (~2020) History of CEA (carotid endarterectomy) (~2018) History of lithotripsy (~2002) Hx of CABG (~2018) Family History (Updated 10/16/24 @ 13:27 by Arin Zarate MA) Father Bone cancer Mother No problems noted. Father No problems noted. Other No family history of coronary artery disease Social History Household Members: None Housing: House Do you presently have visiting nurse or other home services: Yes (previously had home services) Alcohol intake: former Comment: patient refused alarm Patient Tobacco Use Status: Current everyday Tobacco user Tobacco use type: Cigarette Cigarette Packs Per Day: 0.5 Cigarettes Per Day: 6 Years Smoked: 60 Packs Per Year: 30 Packs per year/per ci.00 e-Cigarette/Vaping Use: Currently Using Second Hand Smoke Exposure: No Advance Directives Date on File: 10/12/21 service: Yes Current occupational status: retired Cognitive needs: No Hearing needs: No Vision needs: Yes (teading glasses) Questionnaire PHQ-9 Over the last 2 weeks, how often have you been bothered by any of the following problems? 1. Little interest or pleasure in doing things: not at all 2. Feeling down, depressed, or hopeless: not at all 3. Trouble falling or staying asleep, or sleeping too much: not at all 4. Feeling tired or having little energy: not at all 5. Poor appetite or overeating: not at all 6. Feeling bad about yourself - or that you are a failure or have let yourself or your family down: not at all 7. Trouble concentrating on things, such as reading the newspaper or watching television: not at all 8. Moving or speaking so slowly that other people could have noticed. Or the opposite - being so fidgety or restless that you have been moving around a lot more than usual: not at all 9. Thoughts that you would be better off or of hurting yourself in some way: not at all Total score: 0 Source: Developed by Drs. Stone Jeronimo, Carin House, Santino Kelley and colleagues, with an educational phyllis from [employer]. Thrive Questionnaire Date Thrive assessed: 10/16/24 I am a: Patient Within the past 12 months, did the food you bought not last and you didn't have the money to get more?: Never true Within the past 12 months, did you worry whether your food would run out before you got money to buy more?: Never true Do you have trouble paying for medicines?: No Do you have trouble getting transportation to medical appointments?: No Do you have trouble paying your heating and electricity bill?: No Do you have trouble taking care of your child, family member or friend?: No Do you have trouble with day-to-day activities such as bathing, preparing meals, shopping, managing finances, etc.?: No Are you currently unemployed and looking for a job?: No Are you interested in more education?: No THRIVE Score: 0 AUDIT C Alcohol Use Questionnaire (AUDIT-C) 1. How often do you have a drink containing alcohol?: Monthly or less 2. How many drinks containing alcohol do you have on a typical day when you are drinking?: 1 or 2 3. How often do you have six or more drinks on one occasion?: Less than monthly Total Score: 2 SHANNON-7 AMB Questionnaire SHANNON-7 Date SHANNON - 7 assessed: 10/16/24 Feeling nervous, anxious, or on edge: 0 = Not at all Not being able to stop or control worryin = Not at all Worrying too much about different things: 0 = Not at all Trouble relaxin = Not at all Being so restless that it is hard to sit still: 0 = Not at all Becoming easily annoyed or irritable: 0 = Not at all Feeling afraid as if something awful might happen: 0 = Not at all Total SHANNON-7 score (0-4 normal; 5-9 mild; 10-14 moderate; 15-21 severe): 0 Source: Developed by Drs. Stone Jeronimo, Carin House, Santino Kelley and colleagues, with an educational phyllis from [employer]. Physical exam (Primary Care) Vital Signs: Last Vital Signs Temp 98.3 F 10/16/24 09:24 Pulse 68 10/16/24 09:24 BP 124/70 10/16/24 09:24 Pulse Ox 99 10/16/24 09:24 Oxygen Delivery Method Room Air 10/16/24 09:24 BMI result Body Mass Index 19.8 Tobacco/Smoking Status: Tobacco use Status Tobacco use date assessed 10/16/24 10/16/24 13:28 Patient Tobacco Use Status Current everyday Tobacco 10/16/24 09:24 Tobacco use type Cigarette 10/16/24 09:24 e-Cigarette/Vaping Use Currently Using 10/16/24 09:24 PHQ-9: PHQ-9 Score PHQ-9: Total score 0 10/16/24 13:28 Thrive Assessment: Date of Thrive Assessment Date Thrive assessed 10/16/24 10/16/24 13:28 Coding Level of Care Code Est Pt Level 4 (75321) Complex EM visit Add On G2211 Diagnoses Contusion, chest wall S20.219A Lung cancer C34.90 Assessment & Plan Assessment & Plan (1) Contusion, chest wall: Code(s): S20.219A - Contusion of unspecified front wall of thorax, initial encounter Plan: was seen in the ER at [place]. Unremarkable. Requesting Tyl with codeine for relief. Same agreed. (2) Lung cancer: Code(s): C34.90 - Malignant neoplasm of unspecified part of unspecified bronchus or lung Category: Medical Plan: Sees oncologist at [facility]. Plan History of Present Illness - The patient is a 79-year-old male presenting with falls and rib contusion. - The patient reported falling three times at home, with the most recent fall occurring on Monday. - He was hospitalized for five days and subsequently attended rehabilitation for another five days. - The patient did not sustain any fractures but has a rib contusion, confirmed by x-rays at the hospital. - He experiences significant pain when taking deep breaths, which he describes as killing him. - The patient has not received any medication for the rib contusion but expressed a desire for Tylenol with Codeine for pain management. - The patient reports dehydration and cramps as contributing factors to his falls. - - The patient has a history of lung cancer, for which he underwent lung resection. - He continues to smoke despite his history of lung cancer. - A recent imaging study revealed another spot on his lung, which is being monitored by his oncologist. Social History - Smoking: The patient continues to smoke despite a history of lung cancer and lung resection. - Driving: The patient is currently not driving due to his condition and relies on a friend for transportation. Review of Systems - Respiratory: Reports dyspnea and pain on deep breathing. Denies any fractures from falls. - Musculoskeletal: Reports falls due to cramps and dehydration. Physical Exam General: Cooperative and healthy appearing Nutritional Appearance: Well nourished Orientation/consciousness: Patient oriented x3 Limitations: No limitations Head: Normal to inspection General: Appearance normal, both eyes and all related structures Neck: Normal visual inspection Chest: Normal palpation of entire chest wall Respiratory: Patient reports difficulty breathing and coughing, with pain on taking deep breaths. History of lung resection and ongoing monitoring of lung nodule. ormal respiratory effort Neurology: Patient oriented x3, reports falling three times at home, possibly due to dehydration and cramps. Results - Imaging: X-rays confirmed rib contusion; recent imaging revealed another spot on the lung. Plan 1. Falls - Plan includes addressing dehydration and cramps as contributing factors. - Patient advised to rise slowly from bed to prevent falls related to blood pressure changes. 2. Rib Contusion - Prescribed Tylenol with Codeine for pain management. 3. Lung Cancer - Oncologist is monitoring a new spot on the lung. Discussion Notes I discussed with the patient the importance of managing dehydration and cramps to prevent further falls. We also talked about the need to rise slowly from bed to avoid falls related to blood pressure changes. I prescribed Tylenol with Codeine for pain management of the rib contusion. The patient is aware that his oncologist is monitoring a new spot on his lung. Patient Instructions - Stay hydrated to prevent cramps and falls. - Rise slowly from bed to avoid dizziness and falls. - Take Tylenol with Codeine as prescribed for rib pain. - Follow up with your oncologist regarding the lung spot.
--- OUTSIDE RECORDS SUMMARY | 2024-10-16 14:16 | XMS_ITS | Clinical Summary ---
Author Organization [facility] Address [address] [place] [address] Care Team Providers Care Hose Tender Name Role Phone Franco Goel MD Primary Care Provider [phone] Allergies No known active allergies Medications allopurinol (ZYLOPRIM) 100 mg tabletIndications:I diopathic gout, unspecified chronicity, unspecified site Take 1 tablet (100 mg total) by mouth daily. 30 tablet 3 Active amLODIPine (NORVASC) 10 MG tabletIndications:E ssential hypertension Take 1 tablet (10 mg total) by mouth daily. 30 tablet 3 Active atorvastatin (LIPITOR) 80 MG tabletIndications:M ixed hyperlipidemia Take 1 tablet (80 mg total) by mouth nightly. 30 tablet 3 Active levETIRAcetam (KEPPRA) 500 MG tabletIndications:S eizure (HCC) Take 1 tablet (500 mg total) by mouth 2 (two) times a day. 60 tablet 3 Active acetaminophen-codei ne (TYLENOL #3) 300-30 MG per tablet Take 1 tablet by mouth every 4 (four) hours as needed. Active albuterol (PROAIR RESPICLICK) 108 (90 Base) MCG/ACT inhaler Inhale. Active ascorbic acid (VITAMIN C) 500 MG tablet Take 1 tablet (500 mg total) by mouth daily. Active aspirin enteric coated (ECOTRIN LOW STRENGTH) 81 MG EC tablet 1 tablet (81 mg total). 3 Active loratadine (CLARITIN) 10 MG tablet 1 tablet (10 mg total). 3 Active metoPROLOL SUCCINATE (TOPROL-XL) 25 MG 24 hr tablet Take 1 tablet (25 mg total) by mouth 2 (two) times a day. 3 Active Vitamin E 400 units Tab Take by mouth. Active cholecalciferol (CHOLECALCIFEROL) 25 MCG (1000 UT) tablet Take 1 tablet (1,000 Units total) by mouth daily. Active calcium citrate (CALCITRATE) 950 (200 Ca) MG tablet 200 mg. 3 Active fluticasone (FloNASE) 50 mcg/spray nasal spray INSTILL 1 SPRAY INTO EACH NOSTRIL TWICE DAILY FOR NASAL IRRITATION/I NFLAMMATION 3 Active folic acid (FOLVITE) 1 MG tablet [...] drink = 0.6 oz pur e alcohol) [facility] Utilities Answer Date Recorded In the past 12 months has th e [employer], gas, oil, or water [employer] threatened to shut off services in your [...] place to sleep or slept in a mcc (including now)? No 02/17/2023 Sex and Gender Information Value Date Recorded Sex Assigned at Not on file Legal Sex Male 10:07 PM EST Gender Identity Not on file Sexual Orientation Not on file Last Filed Vital Signs Vital Sign Reading Time Taken Comments Blood Pressure 157/72 04/07/2023 11:16 AM EST Pulse 75 04/07/2023 11:16 AM EST Temperature 36.7 C (98 F) 04/07/2023 11:16 AM EST Respiratory Rate 18 [...] Patients (1 - 1-dose 75+ series) 2020 COVID-19 Vaccine ( season) 2023 03/11/2022, 04/10/2021, 03/08/2021, Additional history exists Influenza Vaccine 11/08/2024 02/13/2023, , 12/09/2021, Additional history exists Hepatitis B Vaccines Aged Out No long er eligible based on patient's age to complete this topic Insurance [facility] MEDICARE PART A & B [facility] PPO Advance Directives * Full Code (Latest Code Status on File) Date Activated Date Inactivated Comments 02/15/2023 4:59 AM Care Teams Hose Tender Relationship Specialty Start Date End Date Franco Goel MD [address] [place] [address] [place] [id number] PCP - General 02/15/23
--- OUTSIDE RECORDS SUMMARY | 2024-10-16 14:16 | XMS_ITS | Clinical Summary ---
Author Organization [facility] Address [address] [place] [address] Care Team Providers Care Debrander Name Role Phone Arnulfo Angeles PA-C Primary [...] 78 09/18/2023 9:39 AM EDT Temperature 36.3 C (97.4 F) 09/18/2023 9:39 AM EDT Respiratory Rate 20 11/23/2021 8:47 AM EDT [...] risk series) 03/23/2023 02/23/2023 Influenza Vaccine (#1) 2024 , 12/30/2018, 01/08/2018 DTap / Tdap / [...] age to complete this topic Care Teams Debrander Relationship Specialty Start Date End Date Arnulfo Angeles PA-C [address] [facility] [id number] PCP - General Physician Proposal Lead Writer 08/20/21
--- OUTSIDE RECORDS SUMMARY | 2024-10-16 14:16 | XMS_ITS ---
[facility] Name [facility] History of Medication Use Medication Directions Dispensed Refills Start Date End Date [facility] gadobutrol (GADAVIST) injection 6 mL 6 mL, Intravenous, Once in imaging, contrast, Starting on [place] 03/23/23 at 0938, For 1 dose, Radiology Appointment 03/23/2023 3 completed allopurinol (ZYLOPRIM) 100 mg tablet Take 1 tablet (100 mg total) by mouth daily. 02/18/2023 3 active amLODIPine (NORVASC) 10 MG tablet Take 1 tablet (10 mg total) by mouth daily. 02/18/2023 3 active levETIRAcetam (KEPPRA) 500 MG tablet Take 1 tablet (500 mg total) by mouth 2 (two) times a day. 02/17/2023 3 active loratadine (CLARITIN) 10 MG tablet 1 tablet (10 mg total). 10/31/2022 active albuterol (PROAIR RESPICLICK) 108 (90 Base) MCG/ACT inhaler Inhale. act yanely ascorbic acid (VITAMIN C) 500 MG tablet Take 1 tablet (500 mg total) by mouth daily. active cholecalciferol (CHOLECALCIFEROL) 25 MCG (1000 UT) tablet Take 1 tablet (1,000 Units total) by mouth daily. 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
== END 2024-10-16 13:40 | disposition home or self-care (01) ==
LOC: HO.HMCHD 13:27
PROVIDERS: PCP Internal Medicine; Visit Provider Internal Medicine
DX: S20.219A Contusion of unspecified front wall of thorax, initial encounter (principal); C34.90 Malignant neoplasm of unspecified part of unspecified bronchus or lung

== ENCOUNTER → 2024-10-16 13:27 | Outpatient (BNVA) | payer OTHER, SELFPAY | PROVIDERS: PCP Internal Medicine; Visit Provider Internal Medicine | DX: I25.10 Atherosclerotic heart disease of native coronary artery without angina pectoris (principal); C34.90 Malignant neoplasm of unspecified part of unspecified bronchus or lung; F17.210 Nicotine dependence, cigarettes, uncomplicated; S20.219A Contusion of unspecified front wall of thorax, initial encounter; W19.XXXA Unspecified fall, initial encounter; Y93.9 Activity, unspecified; Y92.9 Unspecified place or not applicable; Y99.9 Unspecified external cause status | CPT/HCPCS: 96127; 99212 ==

== ENCOUNTER 2025-02-05 13:23 | Outpatient (REF) | payer MEDICARE, SELFPAY ==
[2025-02-05 14:20] LABS: MANUAL DIFF FLAG NO
[2025-02-05 15:02] LABS: Hematocrit 29.7 % (42.0-52.0); Hemoglobin 10.0 g/dl (14.0-18.0); Imm Gran Abs Auto 0.01 X10*3/uL (0.00-0.03); Imm Gran Pct Auto 0.2 % (0.0-0.4); Lymphocytes Absolute Auto 1.3 X10*3/uL (1.2-4.9); Mean Corpuscular HGB Conc 33.7 g/dl (31.0-36.0); Mean Corpuscular Hemoglobin 33.9 pg (27.0-33.0); Mean Corpuscular Volume 100.7 fL (80.0-98.0); NRBC Abs Auto 0.000 X10*3/uL (0.0-0.012); NRBC Pct Auto 0.0 /100WBC (0.0-0.2); Platelet Count 170 X10*3/uL (160-400); Red Blood Count 2.95 X10*6/uL (4.60-5.80); White Blood Count 5.7 X10*3/uL (4.8-10.8)
[2025-02-05 15:36] LABS: Alanine Aminotransferase 26 U/L (0-40); Albumin Level 3.9 g/dL (3.5-5.0); Alkaline Phosphatase 126 U/L (39-117); Anion Gap 10 (12-20); Aspartate Amino Transferase 47 U/L (5-37); Blood Urea Nitrogen 35 mg/dL (9-16); Calcium 9.3 mg/dL (8.4-10.2); Carbon Dioxide 27 mmol/L (22-29); Chloride 107 mmol/L (96-108); Cholesterol 117 mg/dL (<200); Estimated Glomerular Filt Rate 42; HDL Cholesterol 34 mg/dL (>40); Potassium 4.7 mmol/L (3.3-5.1); Sodium 139 mmol/L (135-145); Total Protein 7.8 g/dL (6.5-8.0); Triglycerides 105 mg/dL (<150)
== END 2025-02-05 13:24 | disposition home or self-care (01) ==
LOC: HO.LAB 13:23
PROVIDERS: PCP Internal Medicine; Visit Provider Physician Assistant
DX: I25.10 Atherosclerotic heart disease of native coronary artery without angina pectoris (principal); I10 Essential (primary) hypertension; C34.90 Malignant neoplasm of unspecified part of unspecified bronchus or lung; R63.4 Abnormal weight loss; J44.9 Chronic obstructive pulmonary disease, unspecified; F17.210 Nicotine dependence, cigarettes, uncomplicated; Z79.891 Long term (current) use of opiate analgesic; Z79.899 Other long term (current) drug therapy
CPT/HCPCS: 36415; 80048; 80061; 80076; 85025; 99212

== ENCOUNTER 2025-02-05 13:23 | Outpatient (AMB) | payer MEDICARE, SELFPAY ==
--- NOTE | 2025-02-05 12:48 | MHC.PC.OV ---
Vital Signs 02/05/25 13:34 Height 5 ft 7.13 in Weight 49.442 kg BMI 17.0 BP 110/56 L Blood Pressure Location Lt brachial Position Sitting Respiration 20 Pulse 66 Pulse Source Pulse Oximeter Temp 98.6 F Temp Source Temporal Artery Scan Pulse Oximetry (%) 100 Oxygen Delivery Method Room Air Intake Visit Reasons: 6 Month F/U Outpatient Physical Therapist Required: No Accompanied by: Self / Same As Patient Allergies No Known Allergies (No Known Allergies*) Allergy (Verified 02/05/25 12:48) Medication List - Last Reconciled 02/05/25 by JIMMY Paris acetaminophen-codeine 300-15 mg 1 tab PO BID PRN albuterol sulfate 90 mcg/actuation 2 puffs inhalation Q4-6H PRN allopurinol 100 mg PO DAILY 90 days amlodipine 10 mg PO BEDTIME ascorbate calcium (vitamin C) 500 mg PO DAILY atorvastatin 80 mg PO BEDTIME 90 days calcium lactate 100 mg PO TID cholecalciferol (vitamin D3) 25 mcg PO DAILY clobetasol 0.05% 1 appl topical BID PRN 90 days ferrous sulfate 324 mg PO DAILY folic acid 1 mg PO DAILY lisinopril 2.5 mg PO DAILY loratadine (Allergy Relief (loratadine)) 10 mg PO DAILY metoprolol succinate ER 50 mg PO BID mirtazapine 15 mg PO BEDTIME multivitamin 1 tab PO DAILY pyridoxine (vitamin B6) 100 mg PO DAILY 90 days tamsulosin (Flomax) 0.4 mg PO BEDTIME 90 days Tobacco use date assessed: 10/16/24 Dental Screening Dental Screen Date: 10/16/24 HPI HPI Comments History of Present Illness Details 79-year-old male with history of CAD, hyperlipidemia, COPD, anemia, CHF, and SVT, lung cancer, BPH, bilateral carotid stenosis, CKD stage 3 presenting to the office today for management of chronic conditions and to establish care. Follows with [facility] [place] CAD/SVT/HLD/CHF-following with Dr. Smith. S/p CABG x5 2018. On atorvastatin 80 mg, metoprolol 50 mg twice daily. Last echo 11/2021 showed normal LV systolic function with EF 68%, basal inferior segment which was akinetic, mildly decreased right ventricular systolic function and mild calcification of the aortic valve. Not on diuretics. No chest pain. COPD-albuterol PRN. Unable to walk long distances- hx agent orange exposure. Uses twice daily Right upper lobe lung cancer- s/p RUL resection [facility] thoracic. follows with [facility], Chemo once but had syncopal episode 2020. Not interested in further treatment. No metastasis BPH-stable on tamsulosin Chronic gout-allopurinol 100 mg daily Hypertension-blood pressure in the office 110/56. On Toprol 50 mg twice daily, lisinopril 2.5 mg daily, amlodipine 10 mg daily Cigarette smoking- between 4-7 per days. Started in teenage years, quit for a while but started again when in the service Concerns: Unintentional weight loss. Saw oncologist yesterday, aware. CXR showed abn, false positive. Tries to eat but has difficulty. Decreased appetite. ROS: See hpi, negative except for above EXAM: Constitutional - Awake and Alert, No apparent distress Eyes - PERRL Cardiovascular - S1S2, RRR, No edema Respiratory - Normal lung expansion, Normal respiratory effort, No respiratory distress, CTA bilaterally Extremities - no calf tenderness bilaterally, no swelling Skin - Warm/Dry Neurological - Alert & oriented x3 Psychological - Appropriate affect [facility] Medical History HTN (hypertension) COVID-19 virus infection NSVT (nonsustained ventricular tachycardia) CHF (congestive heart failure) Cigarette smoker Pneumothorax after biopsy (~2021) COPD (chronic obstructive pulmonary disease) Anemia Carotid artery occlusion Coronary artery disease Kidney stone High cholesterol Surgical History History of bronchoscopy (~2021) History of chest tube placement (~2021) History of esophagogastroduodenoscopy (EGD) (~2020) History of lung biopsy (~2021) History of colonoscopy (~02/08/21) History of cystoscopy (~2020) History of CEA (carotid endarterectomy) (~2018) History of lithotripsy (~2002) Hx of CABG (~2018) Family History (Updated 10/16/24 @ 13:27 by Arin Zarate MA) Father Bone cancer Mother No problems noted. Father No problems noted. Other No family history of coronary artery disease Social History (Reviewed 10/16/24 @ 13:26 by ADONAY Perez Household Members: None Housing: House Do you presently have visiting nurse or other home services: Yes (previously had home services) Alcohol intake: former Comment: patient refused alarm Patient Tobacco Use Status: Current everyday Tobacco user Tobacco use type: Cigarette Cigarette Packs Per Day: 0.5 Cigarettes Per Day: 6 Years Smoked: 60 e-Cigarette/Vaping Use: Currently Using Second Hand Smoke Exposure: No Advance Directives Date on File: 10/12/21 service: Yes Current occupational status: retired Cognitive needs: No Hearing needs: No Vision needs: Yes (teading glasses) Questionnaire Thrive Questionnaire Date Thrive assessed: 10/16/24 SHANNON-7 AMB Questionnaire SHANNON-7 Date SHANNON - 7 assessed: 10/16/24 Source: Developed by Drs. Stone Jeronimo, Carin House, Santino Kelley and colleagues, with an educational phyllis from [employer]. Physical exam (Primary Care) Vital Signs: Last Vital Signs Temp 98.6 F 02/05/25 13:34 Pulse 66 02/05/25 13:34 Resp 20 02/05/25 13:34 BP 110/56 L 02/05/25 13:34 Pulse Ox 100 02/05/25 13:34 Oxygen Delivery Method Room Air 02/05/25 13:34 BMI result Body Mass Index 17.0 Tobacco/Smoking Status: Tobacco use Status Tobacco use date assessed 10/16/24 02/05/25 12:48 Patient Tobacco Use Status Current everyday Tobacco 02/05/25 12:48 Tobacco use type Cigarette 02/05/25 12:48 e-Cigarette/Vaping Use Currently Using 02/05/25 12:48 Thrive Assessment: Date of Thrive Assessment Date Thrive assessed 10/16/24 02/05/25 12:48 Coding Level of Care Code Est Pt Level 4 (23440) Complex EM visit Add On G2211 Diagnoses Unintentional weight loss R63.4 HTN (hypertension) I10 Coronary artery disease I25.10 Lung cancer C34.90 COPD (chronic obstructive pulmonary disease) J44.9 Cigarette smoker F17.210 Assessment & Plan Assessment & Plan (1) Unintentional weight loss: Code(s): R63.4 - Abnormal weight loss Category: Medical Plan: Has lost 11 kg since his last visit in October. CXR and Oncology was reportedly reassuring. Possible metastasis though oncologist did not seem concerned and no further testing was ordered though patient would not be interested in treatment anyway. Trial Remeron. Educated on dosing and side effects (2) HTN (hypertension): Code(s): I10 - Essential (primary) hypertension Category: Medical Plan: Controlled. Continue current therapies (3) Coronary artery disease: Comment: (S/p CABG x 5 in 2019. Denies recent chest pain) Code(s): I25.10 - Atherosclerotic heart disease of [place] coronary artery without angina pectoris Category: Medical Plan: Stable. Continue following with Cardiology, most recent note reviewed. Continue current therapies (4) Lung cancer: Code(s): C34.90 - Malignant neoplasm of unspecified part of unspecified bronchus or lung Category: Medical Plan: With unintentional weight loss as above. We will request Oncology notes. He is not interested in further therapies. Continue monitoring for symptoms (5) COPD (chronic obstructive pulmonary disease): Code(s): J44.9 - Chronic obstructive pulmonary disease, unspecified Category: Medical Plan: Uncontrolled. Initiate Breo inhaler for maintenance. Continue using albuterol as needed (6) Cigarette smoker: Comment: (current smoker, 60PYH) Code(s): F17.210 - Nicotine dependence, cigarettes, uncomplicated Category: Social Hx Plan: Smoking cessation advised. He is not interested in quitting. He is aware of risks of ongoing cigarette smoking Plan Follow-up in the office in 4 months, labs to be completed today Orders: Orders Basic Metabolic Panel Today C34.90 - Malignant neoplasm of unspecified part of unspecified bronchus or lung, I10 - Essential (primary) hypertension, I25.10 - Atherosclerotic heart disease of [place] coronary artery without angina pectoris Complete Blood Count Auto Diff Today C34.90 - Malignant neoplasm of unspecified part of unspecified bronchus or lung, I10 - Essential (primary) hypertension, I25.10 - Atherosclerotic heart disease of [place] coronary artery without angina pectoris Lipid Panel Today C34.90 - Malignant neoplasm of unspecified part of unspecified bronchus or lung, I10 - Essential (primary) hypertension, I25.10 - Atherosclerotic heart disease of [place] coronary artery without angina pectoris Liver Panel Today C34.90 - Malignant neoplasm of unspecified part of unspecified bronchus or lung, I10 - Essential (primary) hypertension, I25.10 - Atherosclerotic heart disease of [place] coronary artery without angina pectoris Medications: New mirtazapine 15 mg PO BEDTIME 90 tabs 1RF fluticasone furoate-vilanterol 100-25 mcg/dose (Breo Ellipta) Rinse mouth well following use 1 inh inhalation DAILY 60 ea 3RF
[2025-02-05 13:34] VITALS: BP 110/56; PULSE 66; RESP 20; TEMP 37; O2SAT 100; BMI 17.0
--- OUTSIDE RECORDS SUMMARY | 2025-02-05 17:00 | XMS_ITS | Clinical Summary ---
Author Organization [facility] Address [address] [address] Phone Care Team Providers Care Forming Department Supervisor Name Role Phone Franco Goel MD Primary [...] at Not on file Legal Sex Male 10:38 PM EDT Gender Identity Not on file Sexual Orientation Not on file Plan of Treatment Health Maintenance Due Date Last Done Comments Adult Td,Tdap Booster 1945 LIPID PANEL 1945 DEPRESSION SCREENING 1957 SMOKING Hx and SMOKELESS TOB ACCO SCREENING 1958 HEPATITIS C SCREENING 1963 PNEUMOCOCCAL VACCINES (50+ y ears) (1 of 1 - PCV) 1995 ZOSTER VACCINES (1 of 2) 1995 RSV VACCINE (1 - 1-dose 75+ series) 2020 INFLUENZA VACCINE (#1) 2024 01/01/2021 COVID-19 VACCINE (1 - 2024-2 6 season) 2024 HEPATITIS A VACCINES Aged Out No long er eligible based on patient's age to complete this topic HIB VACCINES Aged Out No longer eligi ble based on patient's age to complete this topic MENINGOCOCCAL VACCINES (ACWY) Aged Out No longer eligible based on patient's age to complete this topic MENINGOCOCCAL VACCINES (B) Aged Out N o longer eligible based on patient's age to complete this topic Medical Devices Not on file [place] [id number] [employer] MEDEX SUPPLEMENT MEDICARE PART A & B [employer] MEDEX SUPPLEMENT MEDICARE PART A & B [employer] MEDEX SUPPLEMENT MEDICARE PART A & B [employer] MEDEX SUPPLEMENT MEDICARE PART A & B [employer] MEDEX SUPPLEMENT MEDICARE PART A & B [employer] MEDEX SUPPLEMENT MEDICARE PART A & B [employer] MEDEX SUPPLEMENT MEDICARE PART A & B [employer] MEDEX SUPPLEMENT MEDICARE PART A & B [employer] MEDEX SUPPLEMENT Care Teams Forming Department Supervisor Relationship Specialty Start Date End Date Franco Goel MD [address] [place] [address] [place] [address] PCP - General Internal Medicine 09/19/18 Additional Source Comments The information contained in this document represents components of the legal health record. It is not the complete legal health record.[facility]
--- OUTSIDE RECORDS SUMMARY | 2025-02-05 17:00 | XMS_ITS | Clinical Summary ---
Author Organization [facility] Address [address] [place] [address] Care Team Providers Care Manager Financial Services Name Role Phone Arnulfo Angeles PA-C Primary [...] age to complete this topic Care Teams Manager Financial Services Relationship Specialty Start Date End Date Arnulfo Angeles PA-C [address] [facility] [place] [id number] PCP - General Physician Revenue Accounting Manager 08/20/21
--- OUTSIDE RECORDS SUMMARY | 2025-02-05 17:00 | XMS_ITS ---
Author Organization [facility] Address [address] [place] [address] Care Team Providers Care Unit Trust Manager Name Role Phone Arnulfo Angeles PA-C Primary Care Provider Active Problems Problem Noted Date Diagnosed Date Primary adenocarcinoma of right lung 09/07/2021 Current Oncology Plans No current plan information found. Past Plans ONCOLOGY TREATMENT Plan Name Start Date Discontinue Date Treatment Medications Discontinue Reason Plan Provider [facility] 022 05/05/2022 albuterol (PROVENTIL)atezolizumab (TECENTRIQ) infusiondiphenhydrAMINE (BENADRYL)EPINEPHrinefa motidine (PF) (PEPCID)hydrocortisone (SOLU-CORTEF) IVmeperidine (DEMEROL) 25 MG/MLSaline Flush 0.9 %sodium chloride (NS) 0.9 %sodium chloride 0.9% bolus (NS) Therapy Complete Kedar Shoemaker MD 1 of 12 cycles started [facility] OP PEMETREXED+CA RBOPLATIN (AUC=6) 09/15/19 22 11/22/2021 [...] treatments are documented for this patient in [facility]. Treatments may have been administered in another system.
--- OUTSIDE RECORDS SUMMARY | 2025-02-05 17:00 | XMS_ITS | Encounter Summary ---
Author Organization [facility] Address [address] [place] [address] Care Team Providers Care Citrix Lead Name Role Phone Arnulfo Angeles Primary Care Provider [phone] Encounter Details Date Type Department Care Team (Late Contact Info) Description 10/07/2024 Lab Requisition [facility] - Main Lab [address] [place] [address] Sherlyn Parson PA [address] [place] [address] Encounter for other general examination Social History Tobacco Use Types Packs/Day Years [...] as of this encounter Plan of Treatment Upcoming Encounters Date Type Department Care Team (Late Contact Info) Description 04/04/2025 9:00 AM EST Office Visit [facility] Oncology [address] [place] [address] Castro Farias MD [address] [place] [address] documented as of this encounter Procedures Procedure Name Priority Date/Time Associated Diagnosis Comments CBC WITH AUTO DIFFERENTIAL Routine 10/07/2024 5:13 AM EDT Encounter for other general examination CBC AND DIFFERENTIAL Routine 10/07/2024 5:13 AM EDT Encounter for other general examination MAGNESIUM Routine 10/07/2024 5:13 AM EDT Encounter for other general examination COMPREHENSIVE METABOLIC PANEL Routine 10/07/2024 5:13 AM EDT Encounter for other general examination documented in this encounter Results * (ABNORMAL) CBC auto differential (10/07/2024 5:13 AM EDT) [facility] WBC 5.2 4.8 - 10.8 K/mcL LAB HEMETOLOGY METHOD 10/07/2024 11:36 AM [facility] RBC 2.60(L) 4.50 - 5.50 M/mcL LAB HEMETOLOGY METHOD 10/07/2024 11:36 AM [facility] Hemoglobin 8.5(L) 13.5 - 17.5 g/dL LAB HEMETOLOGY METHOD 10/07/2024 11:36 AM [facility] Hematocrit 25.9(L) 42.0 - 54.0 % LAB HEMETOLOGY METHOD 10/07/2024 11:36 AM [facility] MCV 101.6(H) 79.0 - 98.0 FL LAB HEMETOLOGY METHOD 10/07/2024 11:36 AM [facility] MCH 33.3(H) 27.0 - 32.0 pcg LAB HEMETOLOGY METHOD 10/07/2024 11:36 AM [facility] MCHC 32.8 32.0 - 37.0 g/dL LAB HEMETOLOGY METHOD 10/07/2024 11:36 AM [facility] RDW 13.6 11.0 - 15.0 % LAB HEMETOLOGY METHOD 10/07/2024 11:36 AM [facility] Platelets 147 130 - 400 K/mcL LAB HEMETOLOGY METHOD 10/07/2024 11:36 AM [facility] MPV 11.6(H) 7.0 - 11.0 FL LAB HEMETOLOGY METHOD 10/07/2024 11:36 AM [facility] NRBC 0.0 <1.0 % LAB HEMETOLOGY METHOD 10/07/2024 11:36 AM [facility] NRBC Absolute 0.00 <0.10 K/mcL LAB HEMETOLOGY METHOD 10/07/2024 11:36 AM [facility] Neutrophils Relative 72.2 % LAB HEMETOLOGY METHOD 10/07/2024 11:36 AM [facility] Lymphocytes Relative 19.0 % LAB HEMETOLOGY METHOD 10/07/2024 11:36 AM [facility] Monocytes Relative 8.2 % LAB HEMETOLOGY METHOD 10/07/2024 11:36 AM [facility] Eosinophils Relative 0.0 % LAB HEMETOLOGY METHOD 10/07/2024 11:36 AM [facility] Basophils Relative 0.0 % LAB HEMETOLOGY METHOD 10/07/2024 11:36 AM [facility] Immature Granulocytes Relative 0.6 % LAB HEMETOLOGY METHOD 10/07/2024 11:36 AM [facility] Neutrophils Absolute 3.72 1.50 - 7.00 K/mcL LAB HEMETOLOGY METHOD 10/07/2024 11:36 AM [facility] Lymphocytes Absolute 0.98(L) 1.00 - 5.00 K/mcL LAB HEMETOLOGY METHOD 10/07/2024 11:36 AM [facility] Monocytes Absolute 0.42 0.20 - 1.00 K/mcL LAB HEMETOLOGY METHOD 10/07/2024 11:36 AM [facility] Eosinophils Absolute 0.00 0.00 - 0.50 K/[facility] LAB HEMETOLOGY METHOD 10/07/2024 11:36 AM EDT [facility] Basophils Absolute 0.00 0.00 - 0.20 K/[facility] LAB HEMETOLOGY METHOD 10/07/2024 11:36 AM EDT [facility] Immature Granulocytes Absolute 0.03 0.00 - 0.03 K/[facility] LAB HEMETOLOGY METHOD 10/07/2024 11:36 AM EDT [facility] Blood Venous blood specimen / Unknown Venipuncture / Unknown 10/07/2024 5:13 AM EDT 10/07/2024 9:59 AM EDT us Sherlyn MARQUEZ LAB BLOOD ORDERABLES Final Resul t [facility] [address] [place] [address], * (ABNORMAL) Comprehensive metabolic panel (10/07/2024 5:13 AM EDT) Sodium 138 133 - 145 mmol/L LAB CHEMISTRY METHOD 10/07/2024 12:00 PM [facility] Potassium 4.3 3.5 - 5.5 mmol/L LAB CHEMISTRY METHOD 10/07/2024 12:00 PM [facility] Chloride 108 96 - 110 mmol/L LAB CHEMISTRY METHOD 10/07/2024 12:00 PM [facility] CO2 21 21 - 32 mmol/L LAB CHEMISTRY METHOD 10/07/2024 12:00 PM [facility] Anion Gap 9 3 - 11 LAB CHEMISTRY METHOD 10/07/2024 12:00 PM [facility] Glucose 93 70 - 100 mg/dL LAB CHEMISTRY METHOD 10/07/2024 12:00 PM [facility] BUN 29(H) 5 - 25 mg/dL LAB CHEMISTRY METHOD 10/07/2024 12:00 PM [facility] Creatinine 1.38(H) 0.70 - 1.30 mg/dL LAB CHEMISTRY METHOD 10/07/2024 12:00 PM [facility] eGFR 52(L) >=60 mL/min/1. 73m2 LAB CHEMISTRY METHOD 10/07/2024 12:00 PM [facility] Comment:Calculation based on the Chronic Kidney Disease Epidemiology Collaboration (CKD-EPI) equation refit without adjustment for race. BUN/Creatinine Ratio 21.0 LAB CHEMISTRY METHOD 10/07/2024 12:00 PM [facility] Calcium 9.0 8.5 - 10.5 mg/dL LAB CHEMISTRY METHOD 10/07/2024 12:00 PM [facility] AST (SGOT) 44(H) 10 - 42 unit/L LAB CHEMISTRY METHOD 10/07/2024 12:00 PM [facility] ALT (SGPT) 42 10 - 60 unit/L LAB CHEMISTRY METHOD 10/07/2024 12:00 PM [facility] Alkaline Phosphatase 91 42 - 121 unit/L LAB CHEMISTRY METHOD 10/07/2024 12:00 PM [facility] Total Protein 6.4 6.0 - 8.0 g/dL LAB CHEMISTRY METHOD 10/07/2024 12:00 PM [facility] Albumin 2.6(L) 3.2 - 5.0 g/dL LAB CHEMISTRY METHOD 10/07/2024 12:00 PM [facility] Total Bilirubin 0.2 0.0 - 1.4 mg/dL LAB CHEMISTRY METHOD 10/07/2024 12:00 PM [facility] Blood Venous blood specimen / Unknown Venipuncture / Unknown 10/07/2024 5:13 AM EDT 10/07/2024 9:59 AM EDT Sherlyn MARQUEZ LAB BLOOD ORDERABLES Final Resul t Performing Organization Address [facility]/ZIP Co de Phone Number [facility] [address] [place] [address], [place] [phone] * (ABNORMAL) Magnesium (10/07/2024 5:13 AM EDT) Magnesium 1.8(L) 1.9 - 2.6 mg/dL LAB CHEMISTRY METHOD 10/07/2024 12:00 PM EDT [facility] Blood Venous blood specimen / Unknown Venipuncture / Unknown 10/07/2024 5:13 AM EDT 10/07/2024 9:59 AM EDT us Sherlyn MARQUEZ LAB BLOOD ORDERABLES Final Resul t Performing Organization Address [facility]/ZIP Co de Phone Number [facility] [address] [place] [address], [place] [phone] documented in this encounter Visit Diagnoses Diagnosis Encounter for other general examination documented in this encounter Care Teams [employer] Lead Relationship Specialty Start Date End Date Arnulfo Angeles PA [address] [place] [address] PCP - General Archaeologist 06/25/21 documented as of this encounter
--- OUTSIDE RECORDS SUMMARY | 2025-02-05 17:00 | XMS_ITS | Clinical Summary ---
Author Organization [facility] Address [address] [place] [address] Care Team Providers Care Boomboat Operator Name Role Phone Franco Goel MD Primary Care Provider [phone] Allergies No known active allergies Medications allopurinol [...] drink = 0.6 oz pur e alcohol) [facility] Utilities Answer Date Recorded In the past 12 months has th e [employer], gas, oil, or water [employer] threatened to shut off services in your [...] place to sleep or slept in a fci (including now)? No 02/17/2023 Sex and Gender [...] Health Maintenance Due Date Last Done Comments Advance Care Planning 1945 Hepatitis C Virus Screening 1945 DTaP/Tdap/Td Vaccines (1 - Tdap) 1964 Pneumococcal Vaccines 50+ (1 of 2 - PCV) 1964 Zoster (Shingles) Vaccine (1 of 2) 1995 RSV Vaccine 50 years and older and Patients (1 - 1-dose 75+ series) 2020 Influenza Vaccine 11/08/2024 02/13/2023, , 12/09/2021, Additional history exists COVID-19 Vaccine ( season) 2024 03/11/2022, 04/10/2021, 03/08/2021, Additional history exists Hepatitis B Vaccines Aged Out No long er eligible based on patient's age to complete this topic Insurance [facility] MEDICARE PART A & B [facility] PPO Advance Directives * Full Code (Latest Code Status on File) Date Activated Date Inactivated Comments 02/15/2023 4:59 AM Care Teams Boomboat Operator Relationship Specialty Start Date End Date Franco Goel MD [address] [place] [address] [place] [address] PCP - General 02/15/23
--- OUTSIDE RECORDS SUMMARY | 2025-02-05 17:00 | XMS_ITS | Clinical Summary ---
Author Organization [facility] Address [address] [place] [address] Phone Care Team Providers Care Tip Stretcher Name Role Phone Arnulfo Angeles Primary Care Provider [phone] Allergies No known active allergies Medications acetaminophen-cod [...] Take 1 tablet by mouth daily. Active atorvastatin (LIPITOR) 80 [...] (500 mg total) by mouth daily. Active lisinopriL (PRINIVIL,ZESTRIL ) 2.5 mg tablet Take 1 tablet (2.5 mg total) by mouth. 5 Active Active Problems Problem Noted Date Diagnosed Date Primary adenocarcinoma of ri ght lung (CMS/HCC V24, CMS/HCC V28) 09/07/2021 Assessment & Plan (10/14/2024 1:39 PM EDT): Mr. 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 The patient started on treatment with Dr. Farias but did not complete it due to adverse reactions. The patient's most recent surveillance chest CT scan was performed at [facility] on September 10, 2024. There is a new 0.6 cm nodule closely related to a vessel in the anterior aspect of what is likely the right middle lobe. There continues to be stable scattered calcified and noncalcified pulmonary nodules measuring 5 mm or less. A chest CT surveillance scan has been ordered by Dr. Farias in three months to re-evaluate the new nodule, which will be December 2024. The patient will have a visit in our office after this scan to go over the results and perform physical exam as part of his surveillance protocol. Patient is told to call the office should he have any questions or concerns prior to his next visit. Encounters Date Type Department Care Team Description 01/02/2025 9:15 AM EDT Office Visit [facility] Hematology Oncology [address] [place] [address] Castro Farias MD Primary adenocarcinoma of right lung (CMS/HCC V24, CMS/HCC V28) (Primary Dx); Macrocytic anemia 12/25/2024 8:59 AM EDT - 12/25/2024 11:59 PM EDT Hospital Encounter [facility] CT Scan [address] [place] [address] Primary adenocarcinoma of right lung (CMS/HCC V24, CMS/HCC V28) Discharge Disposition: Home or Self Care 11/15/2024 Telephone [facility] Hematology Oncology [address] [place] [address] Mahogany Elliott MA from Last 3 Months Surgical History Surgery Date Site/Laterality Comments LUNG SURGERY PROCEDURE:LUNG SURGERY OTHER SURGICAL HISTORY 07/27/2021 PROCEDURE:RUL lobectomy Medical History Medical History Date Comments Lung cancer (CMS/HCC V24, CMS/HCC V28) DX:Lung cancer (HCC) Hypertension DX:Hypertension Heart attack (CMS/HCC V24, CMS/HCC V28) DX:Heart attack (HCC) Anemia DX:Anemia Kidney stone DX:Kidney stone Carotid artery occlusion DX:[place] tid artery occlusion Family History Medical History Relation Name Comments Bone cancer Father Relation Name Status Comments Father Mother Social History Tobacco Use Types Packs/Day Years Used Date Smoking Tobacco: Every Day Cigarettes Smokeless Tobacco: Never Tobacco Cessation:Ready to Q uit: Not Asked; Counseling Given: Not Answered Alcohol Use Standard Drinks/Week Comments Not Currently 0 (1 standard drink = 0.6 oz pur e alcohol) Sex and Gender Information Value Date Recorded Sex Assigned at Not on file Legal Sex Male 12:56 AM EST Gender Identity Not on file Sexual Orientation Not on file Obstetrics History Last Filed Vital Signs Vital Sign Reading Time Taken Comments Blood Pressure 148/61 01/02/2025 9:03 AM EDT Pulse 72 01/02/2025 9:03 AM EDT Temperature 36.3 C (97.4 F) 01/02/2025 9:03 AM EDT Respiratory Rate 16 10/15/2024 10:52 AM EDT Oxygen Saturation 100% 01/02/2025 9:03 AM EDT Inhaled Oxygen Concentration - - Weight 59 kg (130 lb) 01/02/2025 9:03 AM EDT Height 175.3 cm (5' 9 ) 10/15/2024 10:52 AM EDT Body Mass Index 19.2 10/15/2024 10:52 AM EDT Plan of Treatment Upcoming Encounters Date Type Department Care Team (Late st Contact Info) Description 04/04/2025 9:00 AM EST Office Visit [facility] Hematology Oncology [address] [place] [address] Castro Farias MD [address] [place] [phone] Health Maintenance Due Date Last Done Comments Cholesterol Screening (Lipid Panel) 03/13/2022 Falls Risk Assessment 03/13/2022 Hepatitis C Screening 03/13/2022 Lung Cancer Screening (Low Dose CT) 03/13/2022 Social Influencers of Health Screening 03/13/2022 Depression Screening 04/10/2024 COVID-19 Vaccine (8 - Moderna risk season) 2024 02/16/2024, 02/13/2023, 03/11/2022, Additional history exists Hypertension/CHF/CAD Annual BMP Blood Test 10/07/2025 10/07/2024, 02/16/2023, 02/15/2023, Additional history exists DTaP,Tdap,and Td Vaccines (2 - Td or Tdap) 09/12/2028 09/12/2018 Zoster Vaccines Completed 06/18/2019, 03/14/2019 Pneumococcal Vaccine: 50+ Years Completed 06/19/2020, 09/12/2018 RSV Immunization Adult Patients Completed 04/25/2023 Influenza Vaccine Completed 12/27/2024, , 01/23/2024, Additional history exists HIB Vaccines Aged Out [...] Procedure Name Priority Date/Time Associated Diagnosis Comments CT CHEST WO CONTRAST Routine 12/25/2024 10:00 AM EDT Primary adenocarcinoma of right lung (CMS/HCC V24, CMS/HCC V28) COMPREHENSIVE METABOLIC PANEL Routine 10/07/2024 5:13 AM EDT Encounter for other general examination from Last 3 Months or Most Recently Relevant to Health Maintenance Results * CT Chest wo Contrast (12/25/2024 10:00 AM EDT) Anatomical Region Laterality Modality Body Computed Tomogra phy 12/31/2024 8:10 AM EDT Impressions 12/31/2024 8:22 AM EDT The nodule in the anterior right midlung has essentially resolved. The area of probable airway thickening in the posteromedial right lower lobe has slightly decreased in size. No new suspicious abnormality. -------- FINAL REPORT -------- Dictated By: Jose Snyder Dictated Date: 12/31/2024 08:10 ET Assigned Physician: Jose Snyder Reviewed and Electronically Signed By: Jose Snyder Signed Date: 12/31/2024 08:22 ET Workstation ID: [id number] Transcribed By: Self Edit Transcribed Date: 12/31/2024 08:10 ET Narrative 12/31/2024 8:22 AM EDT EXAMINATION: CT CHEST WITHOUT CONTRAST CLINICAL INFORMATION: History of right upper lobe lung cancer. Pulmonary nodule. Evaluate for interval changes COMPARISON: Portions of previous 09/10/24 TECHNIQUE: Multidetector CT. Examination of the chest. Examination of the chest without IV contrast. Reformatting in the coronal and sagittal planes. DLP: 322 mGy-cm Dose optimization was performed including the use of low-dose iterative reconstruction technique with automatic exposure control based on patient size. Type of contrast: None Volume of IV contrast: None Volume of contrast discarded: 0 mL FINDINGS: LUNG: The nodule in the anterior right midlung likely the middle lobe demonstrated on 09/10/24 has essentially resolved. The area of probable airway thickening in the posteromedial right lower lobe on the previous study has slightly decreased in size) 4/196). 0.4 cm circumscribed nodule medial posterior aspect superior segment left lower lobe is unchanged (4/98). There are secretions in the trachea. No suspicious abnormality at the stump from right upper lobectomy. Severe centrilobular emphysema. Scattered reticular opacities. No new suspicious mass or nodule. MEDIASTINUM: There are no enlarged mediastinal or hilar lymph nodes. No suspicious abnormality of the esophagus. There is a hiatal hernia. CARDIAC: The heart is not enlarged. No pericardial fluid or thickening CORONARY CALCIFICATION: Previous coronary artery bypass grafting. VASCULAR: There is no thoracic aortic aneurysm. The main pulmonary artery is top normal. PLEURA: There is no pleural fluid or pneumothorax AXILLA/CHEST WALL: There are no enlarged axillary lymph nodes. No chest wall mass demonstrated VISUALIZED UPPER ABDOMEN: No suspicious abnormality on limited assessment of the visualized upper abdomen. Marked arterial calcifications. There is an unchanged small smooth low density right adrenal nodule. MUSCULOSKELETAL: No suspicious focal bony lesion. Procedure Note Jose Snyder MD - 12/31/2024 EXAMINATION: CT CHEST WITHOUT CONTRAST CLINICAL INFORMATION: History of right upper lobe lung cancer. Pulmonary nodule. Evaluate forinterval changes COMPARISON: Portions of previous 09/10/24 TECHNIQUE: Multidetector CT. Examination of the chest. Examination of the chest without IV contrast. Reformatting in the coronal and sagittal planes. DLP: 322 mGy-cm Dose optimization was performed including the use of low-dose iterativereconstruction technique with automatic exposure control based on patientsize. Type of contrast: None Volume of IV contrast: None Volume of contrast discarded: 0 mL FINDINGS: LUNG: The nodule in the anterior right midlung likely the middle lobedemonstrated on 09/10/24 has essentially resolved. The area of probable airway thickening in the posteromedial right lowerlobe on the previous study has slightly decreased in size) 4/196). 0.4 cm circumscribed nodule medial posterior aspect superior segment leftlower lobe is unchanged (/98). There are secretions in the trachea. No suspicious abnormality at thestump from right upper lobectomy. Severe centrilobular emphysema. Scattered reticular opacities. No new suspicious mass or nodule. MEDIASTINUM: There are no enlarged mediastinal or hilar lymph nodes. Nosuspicious abnormality of the esophagus. There is a hiatal hernia. CARDIAC: The heart is not enlarged. No pericardial fluid or thickening CORONARY CALCIFICATION: Previous coronary artery bypass grafting. VASCULAR: There is no thoracic aortic aneurysm. The main pulmonary arteryis top normal. PLEURA: There is no pleural fluid or pneumothorax AXILLA/CHEST WALL: There are no enlarged axillary lymph nodes. No chestwall mass demonstrated VISUALIZED UPPER ABDOMEN: No suspicious abnormality on limited assessmentof the visualized upper abdomen. Marked arterial calcifications. There isan unchanged small smooth low density right adrenal nodule. MUSCULOSKELETAL: No suspicious focal bony lesion. IMPRESSION: The nodule in the anterior right midlung has essentially resolved. Thearea of probable airway thickening in the posteromedial right lower lobehas slightly decreased in size. No new suspicious abnormality. -------- FINAL REPORT -------- Dictated By: Jose Snyder Dictated Date: 12/31/2024 08:10 ET Assigned Physician: Claudio, Jose F Reviewed and Electronically Signed By: Jose Snyder Signed Date: 12/31/2024 08:22 ET Workstation ID: [id number] Transcribed By: Self Edit Transcribed Date: 12/31/2024 08:10 ET Castro Farias MD IMG CT PROCEDURES Final Res ult * (ABNORMAL) Comprehensive metabolic panel (10/07/2024 5:13 AM EDT) Sodium 138 133 - 145 mmol/L LAB CHEMISTRY METHOD 10/07/2024 12:00 PM [facility] Potassium 4.3 3.5 - 5.5 mmol/L LAB CHEMISTRY METHOD 10/07/2024 12:00 PM [facility] Chloride 108 96 - 110 mmol/L LAB CHEMISTRY METHOD 10/07/2024 12:00 PM [facility] CO2 21 21 - 32 mmol/L LAB CHEMISTRY METHOD 10/07/2024 12:00 PM [facility] Anion Gap 9 3 - 11 LAB CHEMISTRY METHOD 10/07/2024 12:00 PM [facility] Glucose 93 70 - 100 mg/dL LAB CHEMISTRY METHOD 10/07/2024 12:00 PM [facility] BUN 29(H) 5 - 25 mg/dL LAB CHEMISTRY METHOD 10/07/2024 12:00 PM [facility] Creatinine 1.38(H) 0.70 - 1.30 mg/dL LAB CHEMISTRY METHOD 10/07/2024 12:00 PM [facility] eGFR 52(L) >=60 mL/min/1. 73m2 LAB CHEMISTRY METHOD 10/07/2024 12:00 PM [facility] Comment:Calculation based on the Chronic Kidney Disease Epidemiology Collaboration (CKD-EPI) equation refit without adjustment for race. BUN/Creatinine Ratio 21.0 LAB CHEMISTRY METHOD 10/07/2024 12:00 PM [facility] Calcium 9.0 8.5 - 10.5 mg/dL LAB CHEMISTRY METHOD 10/07/2024 12:00 PM [facility] AST (SGOT) 44(H) 10 - 42 unit/L LAB CHEMISTRY METHOD 10/07/2024 12:00 PM [facility] ALT (SGPT) 42 10 - 60 unit/L LAB CHEMISTRY METHOD 10/07/2024 12:00 PM [facility] Alkaline Phosphatase 91 42 - 121 unit/L LAB CHEMISTRY METHOD 10/07/2024 12:00 PM [facility] Total Protein 6.4 6.0 - 8.0 g/dL LAB CHEMISTRY METHOD 10/07/2024 12:00 PM [facility] Albumin 2.6(L) 3.2 - 5.0 g/dL LAB CHEMISTRY METHOD 10/07/2024 12:00 PM [facility] Total Bilirubin 0.2 0.0 - 1.4 mg/dL LAB CHEMISTRY METHOD 10/07/2024 12:00 PM [facility] Blood Venous blood specimen / Unknown Venipuncture / Unknown 10/07/2024 5:13 AM EDT 10/07/2024 9:59 AM EDT Sherlyn MARQUEZ LAB BLOOD ORDERABLES Final Resul t [facility] [address] [place] [address], from Last 3 Months or Most Recently Relevant to Health Maintenance Insurance [facility] Advance Directives Documents on File Type Date Recorded Patient Workforce Manager Expl anation Health Care Decision (hx) 07/29/2021 [...] (hx) 07/29/2021 AD PATEL DIRECTIVE Care Teams Tip Stretcher Relationship Specialty Start Date End Date Arnulfo Angeles PA [address] [place] [address] PCP - General Forest Science Professor 06/25/21
--- OUTSIDE RECORDS SUMMARY | 2025-02-05 17:00 | XMS_ITS | Encounter Summary ---
Author Organization [facility] Address [address] [place] [address] Care Team Providers Care Metal Drawer Name Role Phone Franco Goel MD Primary Care Provider [phone] Encounter Details Date Type Department Care Team (Late st Contact Info) Description 03/03/2023 Scanned Document [facility] [address] [facility] [address] [place] [address] Radiation Therapy, Scan Social History Tobacco Use Types Packs/Day Years Used Date Smoking Tobacco: Unknown Alcohol Use Standard Drinks/Week Comments Not Currently 0 (1 standard drink = 0.6 oz pur e alcohol) [facility] Utilities Answer Date Recorded In the past [...] place to sleep or slept in a long-term (including now)? No 02/17/2023 Sex and Gender [...] encounter Results * HX OUTSIDE ORDER (03/03/2023) us Scan Radiation Therapy HX AMB PROCEDURES Final R esult documented in this encounter Visit Diagnoses Not on filedocumented in this encounter Care Teams Metal Drawer Relationship Specialty Start Date End Date Franco Goel MD [address] [place] [address] [place] [address] PCP - General 02/15/23 documented as of this encounter
--- OUTSIDE RECORDS SUMMARY | 2025-02-05 17:00 | XMS_ITS | Encounter Summary ---
Author Organization [facility] Address [address] [place] [address] Care Team Providers Care Manipulative Therapy Specialist Name Role Phone Franco Goel MD Primary Care Provider [phone] Encounter Details Date Type Department Care Team (Late st Contact Info) Description 2023 Scanned Document [facility] [address] [facility] [address] [place] [address] Radiology, Scan Social History Tobacco Use Types Packs/Day Years Used Date Smoking Tobacco: Unknown Alcohol Use Standard Drinks/Week Comments Not Currently 0 (1 standard drink = 0.6 oz pur e alcohol) [facility] Utilities Answer Date Recorded In the [...] place to sleep or slept in a senior care (including now)? No 02/17/2023 Sex and Gender [...] encounter Results * HX OUTSIDE ORDER (2023) us Scan Radiology HX AMB PROCEDURES Final Result documented in this encounter Visit Diagnoses Not on filedocumented in this encounter Care Teams Manipulative Therapy Specialist Relationship Specialty Start Date End Date Franco Goel MD [address] [place] [address] [place] [address] PCP - General 02/15/23 documented as of this encounter
== END 2025-02-05 14:03 | disposition home or self-care (01) ==
PROVIDERS: PCP Physician Assistant; Visit Provider Physician Assistant
DX: R63.4 Abnormal weight loss (principal); I10 Essential (primary) hypertension; I25.10 Atherosclerotic heart disease of native coronary artery without angina pectoris; C34.90 Malignant neoplasm of unspecified part of unspecified bronchus or lung; J44.9 Chronic obstructive pulmonary disease, unspecified; F17.210 Nicotine dependence, cigarettes, uncomplicated

== ENCOUNTER → 2025-03-19 12:11 | Outpatient (REF) | payer MEDICARE, SELFPAY ==
--- NOTE | 2025-03-19 12:14 | CA_ITS ---
Transthoracic Echocardiogram Patient (Last, First, Middle): Laron Burns K Gender: Male Date of : 1945 Age: 80 Procedure Date: 03/19/2025 Procedure Type: Transthoracic Echocardiogram Location: OP Height: 172.72 cm Weight: 58.97 kg BSA: 1.70 m2 Heart Rate: 64 bpm BP: 134 / 68 mmHg Crotch Breaker: TO Referring MD: Yayo Smith MD Mixing Tank Operator: Yayo Smith MD Symptoms: I25.10 - Atherosclerotic heart disease of [place] coronary artery without... Study Quality: Adequate ECG Rhythm: Sinus Conclusions: - 1. Normal LV ejection fraction 55-60% with grade 1 diastolic dysfunction 2. Mild calcific aortic valve changes noted with normal cardiac valvular Dopplers 3. Normal RV systolic pressure 4. No gross pericardial effusion Findings Left Ventricle Normal left ventricular size, thickness, and systolic function. The visually estimated ejection fraction is between 55-60%. Spectral Doppler is indicative of an impaired relaxation filling pattern. E/E prime ratio is <8, consistent with normal filling pressures. Evidence suggests grade I (mild) diastolic dysfunction. Wall Motion Rest Echo Findings The mid inferior and basal inferoseptal segments are hypokinetic. The basal inferior segment is akinetic. All other scored wall segments showed normal motion. Right Ventricle Normal right ventricular cavity size and systolic function. Atria The left atrium is likely dilated. There is no evidence of interatrial shunt. The right atrium is normal in size. Aortic Valve There is a doming trileaflet aortic valve. There is mild calcification of the aortic valve. There is no aortic valve stenosis. There is no aortic valve regurgitation. Mitral Valve There is mild anterior and posterior mitral leaflet thickening. There is mild mitral annular calcification. There is trace mitral valve regurgitation. There is no mitral valve stenosis. Pulmonic Valve The pulmonic valve is likely normal. Tricuspid Valve Normal tricuspid valve structure. There is trace tricuspid valve regurgitation. The right ventricular systolic pressure is normal. The right ventricular systolic pressure is 32 mmHg. Normal right atrial pressure. There is no evidence of pulmonary hypertension. Great Vessels All visible segments of the aorta are normal in size. The pulmonary artery was not well visualized. There is no dilatation of the ascending aorta measuring 3.20 cm. Venous The inferior vena cava is normal in size and collapses greater than 50% with inspiration. Pericardium/Pleural There is no evidence of pericardial effusion. Prior Study Comparison No significant change compared to prior study dated: 12/03/2021. Measurements 2D Linear Measurements IVSd: 0.95 0.6-0.9/0.6-1.0 cm LVIDd: 4.93 3.9-5.3/4.2-5.9 cm LVIDd Index: 2.90 2.4-3.2/2.2-3.1 cm/m2 LVIDs: 3.10 2.0-3.6 cm LVPWd: 0.76 0.7-1.1 cm LA Diam: 3.30 2.7-3.8/3.0-4.0 cm LAIDs Index: 1.94 1.5-2.3 cm/m2 LV Mass: 179.99 67-162/88-224 g LV Mass Index: 105.87 43-95/49-115 g/m2 LVOT Diam: 2.40 3.0+(-)1.3 cm 2D Systolic Function EF 4C: 58.10 >55% Mitral Valve MV Pk E: 0.58 MV PK A: 0.57 MV Decel Time: 208.00 E/A: 1.00 E'Lateral: 8.05 E'Medial: 6.74 E/E' Med: 8.60 E/E' Lat: 7.20 PHT: 61.00 MVA PHT: 3.61 Decel [place]: 2.80 Aortic Valve AoV Pk Bishop: 0.89 AoV Mn Bishop: 0.63 AoV VTI: 0.21 AoV Pk Grad: 3.00 Aov Mn Grad: 2.00 YOHANNES Cont.VTI: 4.31 LVOT LVOT Pk Bishop: 0.85 LVOT Mn Bishop: 0.57 LVOT VTI: 0.20 LVOT Pk Grad: 3.00 LVOT Mn Grad: 1.00 LVOT Diam: 2.40 LVOT Area: 4.52 Diastolic Function MV Pk E: 0.58 MV Pk A: 0.57 E/A: 1.00 E'Medial: 6.74 E/E' Med: 8.60 E' Laterial: 8.05 E/E' Lat: 7.20 Right Ventricle TAPSE (mm): 12.20 TVS' Bishop: 6.74 Tricuspid Valve TR Pk Bishop: 2.70 TR Pk Grad: 29.00 RA Press: 3.00 RVSP: 32.00 Great Vessels Aorta Sinus of Valsalva: 3.64 2.0-3.5 cm Ao Asc: 3.20 2.1-3.4 cm Ao Arch: 3.40 Updated in Other Vendor System with Status of Final Yayo Smith MD electronically signed on 03/20/2025 3:57:32 PM with status of Final
== END ==
LOC: HO.CARD 12:11
PROVIDERS: Visit Provider Internal Medicine Cardiovascular Disease
DX: I25.10 Atherosclerotic heart disease of native coronary artery without angina pectoris (principal)
CPT/HCPCS: 93306

== ENCOUNTER → 2025-03-19 12:14 | Outpatient (BNV) | payer MEDICARE, SELFPAY | PROVIDERS: Visit Provider Internal Medicine Cardiovascular Disease | DX: I35.8 Other nonrheumatic aortic valve disorders (principal) | CPT/HCPCS: 93306 ==

== ENCOUNTER → 2025-03-28 08:38 | Outpatient (REF) | payer MEDICARE, SELFPAY ==
--- NOTE | ~2025-03-28 | NM_ITS ---
Lexiscan Myocardial perfusion study Indication: CAD was remote coronary artery bypass grafting to evaluate for myocardial ischemia Technique: The patient was brought in for a Lexiscan perfusion study on 03/28/2025 and was injected 0.4 mg of Lexiscan intravenously. Within a minute of this injection 25 mCi of sestamibi was given intravenously. Images were obtained using the SPECT gamma camera interlaced with the gating device. Images were obtained in supine position. Resting perfusion study was performed on 04/01/2025. Patient was administered 25 mCi of sestamibi intravenously at rest. Images were then obtained in supine position. Images were processed with the software and compared side to side in short axis, horizontal long axis and vertical long axis views. Images obtained without without CT attenuation. Total DLP 67 mGy-cm. Findings: The stress perfusion study showed nonattenuated images show minimally reduced uptake in the basal inferior segment of the LV myocardium. Remainder of the LV myocardium is normally perfused. Attenuated corrected images show normal uptake of radiotracer in all segments of the LV myocardium. The gated study shows normal LV systolic function with calculated LVEF of 64%. LV cavity is normal in size. The gated study shows normal systolic wall thickening and contraction of segments. Resting study shows no change in perfusion pattern compared to stress perfusion study. Gating at rest reveals normal systolic wall motion with ejection fraction at 61%. The findings are consistent with normal myocardial perfusion. NM/NM [place] perf SPECT rest & str Impression: 1. Myocardial perfusion imaging study shows normal myocardial perfusion 2. Gated LVEF is 64% 3. Transient ischemic dilatation not present Nondiagnostic changes on EKG. Electronically signed by: Yayo Smith MD 04/01/2025 05:18 PM [facility]
--- NOTE | 2025-03-28 08:41 | CA_ITS ---
Acquisition Time: 2025-03-28 08:53:12 Total Exercise Time: 00:02:00 Test Indications: nsvt Medications: see h&p Protocol: LEXISCAN Max HR: 83 BPM 59% of Pred: 140 BPM Max BP: 130/60 mmHG Max Work Load: 1.0 METS Pharmacological stress test with Lexiscan while pt marches in his chair, with reports of SOB, without any arrythmias, with normotensive response to injection. Nondiagnostic EKG for ischemia. In recovery, pt treated with IVP Aminophylline 75 mg to reverse Lexiscan arfter which pt feeling back to baseline. Nuclear images pending. Test reviewed with Dr. Velazquez. Referred By: Yayo Smith Electronically Signed By: Dayday Gonsales
--- OUTSIDE RECORDS SUMMARY | 2025-03-28 08:49 | XMS_ITS | Clinical Summary ---
Author Organization [facility] Prior to 09/07/24 Address [address] [place] [address] Care Team Providers Care Security Escort Name Role Phone Arnulfo Angeles PA-C Primary [...] Health Maintenance Due Date Last Done Comments Lung Cancer Screening (Low Dose CT) 1945 [...] age to complete this topic Care Teams Security Escort Relationship Specialty Start Date End Date Arnulfo Angeles PA-C [address] [facility] [id number] PCP - General Physician Seismic Prospecting Observer Helper 08/20/21
--- OUTSIDE RECORDS SUMMARY | 2025-03-28 08:49 | XMS_ITS | Clinical Summary ---
Author Organization [facility] Address [address] [place] [address] Care Team Providers Care Electric Meter Reader Name Role Phone Franco Goel MD Primary Care Provider [phone] Allergies No known active allergies Medications allopurinol [...] = 0.6 oz pur e alcohol) [facility] Utilities Answer Date Recorded In the past 12 months has th e [employer], gas, oil, or water [employer] threatened to shut off services in your [...] Last Done Comments Advance Care Planning 1945 DTaP/Tdap/Td Vaccines (1 - Tdap) 1964 [...] patient's age to complete this topic Insurance [facility] MEDICARE PART A & B [facility] PPO Advance Directives * Full Code (Latest Code Status on File) Date Activated Date Inactivated Comments 02/15/2023 4:59 AM Care Teams Electric Meter Reader Relationship Specialty Start Date End Date Franco Goel MD [address] [place] [address] [place] [address] PCP - General 02/15/23
--- OUTSIDE RECORDS SUMMARY | 2025-03-28 08:49 | XMS_ITS ---
Author Organization [facility] Prior to 09/07/24 Address [address] [place] [address] Care Team Providers Care Carpenter Packing Name Role Phone Arnulfo Angeles PA-C Primary Care Provider Active Problems Problem Noted Date Diagnosed Date Primary adenocarcinoma of right lung 09/07/2021 Current Oncology Plans No current plan information found. Past Plans ONCOLOGY TREATMENT Plan Name Start Date Discontinue Date Treatment Medications Discontinue Reason Plan Provider Cycles [facility] OP ATEZOLIZUMAB 022 05/05/2022 albuterol (PROVENTIL)atezolizumab (TECENTRIQ) infusiondiphenhydrAMINE (BENADRYL)EPINEPHrinefa motidine (PF) (PEPCID)hydrocortisone (SOLU-CORTEF) IVmeperidine (DEMEROL) 25 MG/MLSaline Flush 0.9 %sodium chloride (NS) 0.9 %sodium chloride 0.9% bolus (NS) Therapy Complete Kedar Shoemaker MD 1 of 12 cycles started [facility] OP PEMETREXED+CA RBOPLATIN (AUC=6) 09/15/19 22 11/22/2021 [...] treatments are documented for this patient in [facility]. Treatments may have been administered in another system.
--- OUTSIDE RECORDS SUMMARY | 2025-03-28 08:50 | XMS_ITS | Encounter Summary ---
Author Organization [facility] Address [address] [place] [address] Care Team Providers Care Solar Energy Sales Specialist Name Role Phone Arnulof Angeles Primary Care Provider [phone] Encounter Details Date Type Department Care Team (Late Contact Info) Description 10/07/[address] [facility] - Main Lab [address] [place] [address] Sherlyn Parson PA [address] [place] [address] Encounter for other general examination Social History [...] Department Care Team (Late Contact Info) Description 04/18/2025 9:15 AM EST Office Visit [facility] Hematology Oncology [address] [place] [address] Castro Farias MD [address] [place] [address] documented as of this encounter [...] CBC auto differential (10/07/2024 5:13 AM EDT) [facility] WBC 5.2 4.8 - 10.8 K/mcL LAB HEMETOLOGY METHOD 10/07/2024 11:[address] [facility] RBC 2.60(L) 4.50 - 5.50 M/mcL LAB HEMETOLOGY METHOD 10/07/2024 11:[address] [facility] Hemoglobin 8.5(L) 13.5 - 17.5 g/dL LAB HEMETOLOGY METHOD 10/07/2024 11:[address] [facility] Hematocrit 25.9(L) 42.0 - 54.0 % LAB HEMETOLOGY METHOD 10/07/2024 11:[address] [facility] MCV 101.6(H) 79.0 - 98.0 FL LAB HEMETOLOGY METHOD 10/07/2024 11:[address] [facility] MCH 33.3(H) 27.0 - 32.0 pcg LAB HEMETOLOGY METHOD 10/07/2024 11:[address] [facility] MCHC 32.8 32.0 - 37.0 g/dL LAB HEMETOLOGY METHOD 10/07/2024 11:[address] [facility] RDW 13.6 11.0 - 15.0 % LAB HEMETOLOGY METHOD 10/07/2024 11:[address] [facility] Platelets 147 130 - 400 K/mcL LAB HEMETOLOGY METHOD 10/07/2024 11:[address] [facility] MPV 11.6(H) 7.0 - 11.0 FL LAB HEMETOLOGY METHOD 10/07/2024 11:[address] [facility] NRBC 0.0 <1.0 % LAB HEMETOLOGY METHOD 10/07/2024 11:[address] [facility] NRBC Absolute 0.00 <0.10 K/mcL LAB HEMETOLOGY METHOD 10/07/2024 11:[address] [facility] Neutrophils Relative 72.2 % LAB HEMETOLOGY METHOD 10/07/2024 11:[address] [facility] Lymphocytes Relative 19.0 % LAB HEMETOLOGY METHOD 10/07/2024 11:[address] [facility] Monocytes Relative 8.2 % LAB HEMETOLOGY METHOD 10/07/2024 11:[address] [facility] Eosinophils Relative 0.0 % LAB HEMETOLOGY METHOD 10/07/2024 11:[address] [facility] Basophils Relative 0.0 % LAB HEMETOLOGY METHOD 10/07/2024 11:[address] [facility] Immature Granulocytes Relative 0.6 % LAB HEMETOLOGY METHOD 10/07/2024 11:[address] [facility] Neutrophils Absolute 3.72 1.50 - 7.00 K/mcL LAB HEMETOLOGY METHOD 10/07/2024 11:[address] [facility] Lymphocytes Absolute 0.98(L) 1.00 - 5.00 K/mcL LAB HEMETOLOGY METHOD 10/07/2024 11:[address] [facility] Monocytes Absolute 0.42 0.20 - 1.00 K/mcL LAB HEMETOLOGY METHOD 10/07/2024 11:[address] [facility] Eosinophils Absolute 0.00 0.00 - 0.50 K/[facility] LAB HEMETOLOGY METHOD 10/07/2024 11:36 AM EDT [facility] Basophils Absolute 0.00 0.00 - 0.20 K/[facility] LAB HEMETOLOGY METHOD 10/07/2024 11:36 AM EDT [facility] Immature Granulocytes Absolute 0.03 0.00 - 0.03 K/[facility] LAB HEMETOLOGY METHOD 10/07/2024 11:36 AM EDT [facility] Blood Venous blood specimen / Unknown Venipuncture / Unknown 10/07/2024 5:13 AM EDT 10/07/2024 9:59 AM EDT us Sherlyn MARQUEZ LAB BLOOD ORDERABLES Final Resul t [facility] [address] [place] [address], * (ABNORMAL) Comprehensive metabolic panel (10/07/2024 5:13 AM EDT) Sodium 138 133 - 145 mmol/L LAB CHEMISTRY METHOD 10/07/2024 12:[address] [facility] Potassium 4.3 3.5 - 5.5 mmol/L LAB CHEMISTRY METHOD 10/07/2024 12:[address] [facility] Chloride 108 96 - 110 mmol/L LAB CHEMISTRY METHOD 10/07/2024 12:[address] [facility] CO2 21 21 - 32 mmol/L LAB CHEMISTRY METHOD 10/07/2024 12:[address] [facility] Anion Gap 9 3 - 11 LAB CHEMISTRY METHOD 10/07/2024 12:[address] [facility] Glucose 93 70 - 100 mg/dL LAB CHEMISTRY METHOD 10/07/2024 12:[address] [facility] BUN 29(H) 5 - 25 mg/dL LAB CHEMISTRY METHOD 10/07/2024 12:[address] [facility] Creatinine 1.38(H) 0.70 - 1.30 mg/dL LAB CHEMISTRY METHOD 10/07/2024 12:[address] [facility] eGFR 52(L) >=60 mL/min/1. 73m2 LAB CHEMISTRY METHOD 10/07/2024 12:[address] [facility] Comment:Calculation based on the Chronic Kidney Disease Epidemiology Collaboration (CKD-EPI) equation refit without adjustment for race. BUN/Creatinine Ratio 21.0 LAB CHEMISTRY METHOD 10/07/2024 12:[address] [facility] Calcium 9.0 8.5 - 10.5 mg/dL LAB CHEMISTRY METHOD 10/07/2024 12:[address] [facility] AST (SGOT) 44(H) 10 - 42 unit/L LAB CHEMISTRY METHOD 10/07/2024 12:[address] [facility] ALT (SGPT) 42 10 - 60 unit/L LAB CHEMISTRY METHOD 10/07/2024 12:[address] [facility] Alkaline Phosphatase 91 42 - 121 unit/L LAB CHEMISTRY METHOD 10/07/2024 12:[address] [facility] Total Protein 6.4 6.0 - 8.0 g/dL LAB CHEMISTRY METHOD 10/07/2024 12:[address] [facility] Albumin 2.6(L) 3.2 - 5.0 g/dL LAB CHEMISTRY METHOD 10/07/2024 12:[address] [facility] Total Bilirubin 0.2 0.0 - 1.4 mg/dL LAB CHEMISTRY METHOD 10/07/2024 12:[address] [facility] Blood Venous blood specimen / Unknown Venipuncture / Unknown 10/07/2024 5:13 AM EDT 10/07/2024 9:59 AM EDT Sherlyn MARQUEZ LAB BLOOD ORDERABLES Final Resul t Performing Organization Address [facility]/ZIP Co de Phone Number [facility] [address] [place] [address], [place] [phone] * (ABNORMAL) Magnesium (10/07/2024 5:13 AM EDT) Magnesium 1.8(L) 1.9 - 2.6 mg/dL LAB CHEMISTRY METHOD 10/07/2024 12:00 PM EDT [facility] Blood Venous blood specimen / Unknown Venipuncture / Unknown 10/07/2024 5:13 AM EDT 10/07/2024 9:59 AM EDT us Sherlyn MARQUEZ LAB BLOOD ORDERABLES Final Resul t Performing Organization Address [facility]/ZIP Co de Phone Number [facility] [address] [place] [address], [place] [phone] documented in this encounter Visit Diagnoses Diagnosis Encounter for other general examination documented in this encounter Care Teams Solar Energy Sales Specialist Relationship Specialty Start Date End Date Arnulfo Angeles PA [address] [place] [address] PCP - General Tongue Lining Stitcher 06/25/21 documented as of this encounter
--- OUTSIDE RECORDS SUMMARY | 2025-03-28 08:50 | XMS_ITS | Encounter Summary ---
Author Organization [facility] Address [address] [place] [address] Care Team Providers Care Atmospheric Sciences Professor Name Role Phone Franco Goel MD Primary Care Provider [phone] Encounter Details Date Type Department Care Team (Late st Contact Info) Description 03/03/2023 Scanned Document [facility] [address] [facility] [address] [place] [address] Radiation Therapy, Scan Social History Tobacco Use Types Packs/Day Years Used Date Smoking Tobacco: Unknown Alcohol Use Standard Drinks/Week Comments Not Currently 0 (1 standard drink = 0.6 oz pur e alcohol) [facility] Utilities Answer Date Recorded In the past [...] place to sleep or slept in a snf (including now)? No 02/17/2023 Sex and Gender [...] on filedocumented in this encounter Care Teams Atmospheric Sciences Professor Relationship Specialty Start Date End Date Franco Goel MD [address] [place] [address] [place] [address] PCP - General 02/15/23 documented as of this encounter
--- OUTSIDE RECORDS SUMMARY | 2025-03-28 08:50 | XMS_ITS | Clinical Summary ---
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 The patient started on treatment with Dr. Farias but did not complete it due to adverse reactions. The patient's most recent surveillance chest CT scan was performed at [facility] on September 10, 2024. There is [...] Description 01/02/2025 9:15 AM EDT Office Visit [facility] Hematology Oncology [address] [place] [phone] Castro Farias MD Primary adenocarcinoma of right lung ([facility] V24, [facility] V28) (Primary Dx); Macrocytic anemia from Last 3 Months Surgical History Surgery Date Site/Laterality Comments LUNG SURGERY PROCEDURE:LUNG SURGERY OTHER SURGICAL HISTORY 07/27/2021 PROCEDURE:RUL lobectomy Medical History Medical History Date Comments Lung cancer ([facility]/HCC V24, [facility]/HCC V28) DX:Lung cancer (HCC) Hypertension DX:Hypertension Heart [...] Care Team (Late st Contact Info) Description 04/18/2025 9:15 AM EST Office Visit [facility] Hematology Oncology [address] [place] [address] Castro Farias MD [address] [place] [address] Health Maintenance Due Date Last Done Comments Cholesterol Screening (Lipid Panel) 03/13/2022 Falls Risk Assessment 03/13/2022 Lung Cancer Screening (Low Dose CT) 03/13/2022 Social Influencers of Health Screening 03/13/2022 Depression Screening 04/10/2024 COVID-19 Vaccine ( season) 2024 02/16/2024, 02/13/2023, 03/11/2022, Additional history [...] Procedure Name Priority Date/Time Associated Diagnosis Comments COMPREHENSIVE METABOLIC PANEL Routine 10/07/2024 5:13 AM EDT Encounter for other general examination from Last 3 Months or Most Recently Relevant to Health Maintenance Results * (ABNORMAL) Comprehensive metabolic panel (10/07/2024 5:13 AM EDT) Sodium 138 133 - 145 mmol/L LAB CHEMISTRY METHOD 10/07/2024 12:00 PM [facility] Potassium 4.3 3.5 - 5.5 mmol/L LAB CHEMISTRY METHOD 10/07/2024 12:00 PM [facility] Chloride 108 96 - 110 mmol/L LAB CHEMISTRY METHOD 10/07/2024 12:00 PM [facility] CO2 21 21 - 32 mmol/L LAB CHEMISTRY METHOD 10/07/2024 12:00 PM [facility] Anion Gap 9 3 - 11 LAB CHEMISTRY METHOD 10/07/2024 12:00 PM [facility] Glucose 93 70 - 100 mg/dL LAB CHEMISTRY METHOD 10/07/2024 12:00 PM [facility] BUN 29(H) 5 - 25 mg/dL LAB CHEMISTRY METHOD 10/07/2024 12:00 PM [facility] Creatinine 1.38(H) 0.70 - 1.30 mg/dL LAB CHEMISTRY METHOD 10/07/2024 12:00 PM [facility] eGFR 52(L) >=60 mL/min/1. 73m2 LAB CHEMISTRY METHOD 10/07/2024 12:00 PM [facility] Comment:Calculation based on the Chronic Kidney Disease Epidemiology Collaboration (CKD-EPI) equation refit without adjustment for race. BUN/Creatinine Ratio 21.0 LAB CHEMISTRY METHOD 10/07/2024 12:00 PM [facility] Calcium 9.0 8.5 - 10.5 mg/dL LAB CHEMISTRY METHOD 10/07/2024 12:00 PM [facility] AST (SGOT) 44(H) 10 - 42 unit/L LAB CHEMISTRY METHOD 10/07/2024 12:00 PM [facility] ALT (SGPT) 42 10 - 60 unit/L LAB CHEMISTRY METHOD 10/07/2024 12:00 PM [facility] Alkaline Phosphatase 91 42 - 121 unit/L LAB CHEMISTRY METHOD 10/07/2024 12:00 PM [facility] Total Protein 6.4 6.0 - 8.0 g/dL LAB CHEMISTRY METHOD 10/07/2024 12:00 PM [facility] Albumin 2.6(L) 3.2 - 5.0 g/dL LAB CHEMISTRY METHOD 10/07/2024 12:00 PM [facility] Total Bilirubin 0.2 0.0 - 1.4 mg/dL LAB CHEMISTRY METHOD 10/07/2024 12:00 PM [facility] Blood Venous blood specimen / Unknown Venipuncture / Unknown 10/07/2024 5:13 AM EDT 10/07/2024 9:59 AM EDT us Sherlyn MARQUEZ LAB BLOOD ORDERABLES Final Resul t [facility] [address] [place] [address], from Last 3 Months or Most Recently Relevant to Health Maintenance Insurance [facility] Advance Directives Documents on File Type Date Recorded Patient Braiding Machine Operator Expl anation Health Care Decision (hx) 07/29/2021 [...] (hx) 07/29/2021 AD PATEL DIRECTIVE Care Teams Central Office Supervisor Relationship Specialty Start Date End Date Arnulfo Angeles PA [address] [place] [address] PCP - General Program Management Intern 06/25/21
--- OUTSIDE RECORDS SUMMARY | 2025-03-28 08:50 | XMS_ITS | Encounter Summary ---
Author Organization [facility] Address [address] [place] [address] Care Team Providers Care Optometry Assistant Name Role Phone Franco Goel MD Primary Care Provider Encounter Details Date Type Department Care Team (Late st Contact Info) Description 2023 Scanned Document [facility] 80 [facility] [address] [place] [address] Radiology, Scan Social History Tobacco Use Types Packs/Day Years Used Date Smoking Tobacco: Unknown Alcohol Use Standard Drinks/Week Comments Not Currently 0 (1 standard drink = 0.6 oz pur e alcohol) [facility] Utilities Answer Date Recorded In the [...] place to sleep or slept in a chcf (including now)? No 02/17/2023 Sex and Gender [...] on filedocumented in this encounter Care Teams Optometry Assistant Relationship Specialty Start Date End Date Franco Goel MD [address] [place] [address] [place] [address] PCP - General 02/15/23 documented as of this encounter
== END ==
LOC: HO.CARD 08:38
PROVIDERS: Visit Provider Internal Medicine Cardiovascular Disease
DX: I25.10 Atherosclerotic heart disease of native coronary artery without angina pectoris (principal); Z95.1 Presence of aortocoronary bypass graft
CPT/HCPCS: 78452; 93017; A9500; J0280; J2785

== ENCOUNTER → 2025-03-28 08:41 | Outpatient (BNV) | payer MEDICARE, SELFPAY | DX: I25.10 Atherosclerotic heart disease of native coronary artery without angina pectoris (principal) | CPT/HCPCS: 78452; 93016; 93018 ==

== ENCOUNTER 2025-04-07 07:34 | Outpatient (AMB) | payer OTHER, SELFPAY ==
--- OUTSIDE RECORDS SUMMARY | 2025-04-07 07:38 | XMS_ITS | Encounter Summary ---
Author Organization [facility] Address [address] [place] [address] Care Team Providers Care Brush Sander Name Role Phone Franco Goel MD Primary Care Provider [phone] Encounter Details Date Type Department Care Team (Late st Contact Info) Description 2023 Scanned Document [facility] 80 [facility] [address] [place] [address] Radiology, Scan Social History Tobacco Use Types Packs/Day Years Used Date Smoking Tobacco: Unknown Alcohol Use Standard Drinks/Week Comments Not Currently 0 (1 standard drink = 0.6 oz pur e alcohol) [facility] Utilities Answer Date Recorded In the [...] place to sleep or slept in a custodial (including now)? No 02/17/2023 Sex and Gender [...] on filedocumented in this encounter Care Teams Brush Sander Relationship Specialty Start Date End Date Franco Goel MD [address] [place] [address] [place] [address] PCP - General 02/15/23 documented as of this encounter
--- OUTSIDE RECORDS SUMMARY | 2025-04-07 07:38 | XMS_ITS | Clinical Summary ---
Author Organization [facility] Address [address] [place] [address] Care Team Providers Care Personal Lines Sales Executive Name Role Phone Franco Goel MD Primary Care Provider [phone] Allergies No known active allergies Medications allopurinol [...] drink = 0.6 oz pur e alcohol) [facility] Utilities Answer Date Recorded In the past 12 months has th e [email or web address], gas, oil, or water [employer] threatened to shut off services in your [...] patient's age to complete this topic Insurance [facility] MEDICARE PART A & B [facility] PPO Advance Directives * Full Code (Latest Code Status on File) Date Activated Date Inactivated Comments 02/15/2023 4:59 AM Care Teams Personal Lines Sales Executive Relationship Specialty Start Date End Date Franco Goel MD [address] [place] [address] [place] [address] PCP - General 02/15/23
--- OUTSIDE RECORDS SUMMARY | 2025-04-07 07:38 | XMS_ITS | Clinical Summary ---
Author Organization [facility] Address [address] [place] [address] Phone Care Team Providers Care Physical Science Professor Name Role Phone Franco Goel MD [...] Hx and SMOKELESS TOB ACCO SCREENING 1958 PNEUMOCOCCAL VACCINES (50+ y ears) (1 of 1 - PCV) 1995 ZOSTER VACCINES (1 of 2) 1995 RSV VACCINE (1 - 1-dose 75+ series) 2020 INFLUENZA VACCINE (#1) 2024 01/01/2021 COVID-19 VACCINE ( - 2024-2 6 season) 2024 HEPATITIS A [...] file Insurance MEDICARE PART A & B [facility] MEDEX SUPPLEMENT MEDICARE PART A & B [employer] MEDEX SUPPLEMENT MEDICARE PART A & B [employer] MED[employer] SUPPLEMENT MEDICARE PART A & B [employer] CROSS MEDEX SUPPLEMENT MEDICARE PART A & B [employer] CROSS MEDEX SUPPLEMENT [employer] SUPPLEMENT MEDICARE PART A & B [employer] SUPPLEMENT MEDICARE PART A & B [employer] MED[employer] SUPPLEMENT MEDICARE PART A & B [employer] MEDEX SUPPLEMENT Care Teams Physical Science Professor Relationship Specialty Start Date End Date Franco Goel MD [address] [place] [address] [place] [address] PCP - General Internal Medicine 09/19/18 Additional Source Comments The information contained in this document represents components of the legal health record. It is not the complete legal health record.[facility]
--- OUTSIDE RECORDS SUMMARY | 2025-04-07 07:38 | XMS_ITS | Clinical Summary ---
Author Organization [facility] Prior to 09/07/24 Address [address] [place] [address] Care Team Providers Care Ward Maid Name Role Phone Arnulfo Angeles PA-C Primary [...] age to complete this topic Care Teams Ward Maid Relationship Specialty Start Date End Date Arnulfo Angeles PA-C [address] [facility] [phone] PCP - General Physician Trim Setter 08/20/21
--- OUTSIDE RECORDS SUMMARY | 2025-04-07 07:38 | XMS_ITS | Encounter Summary ---
Author Organization [facility] Address [address] [place] [address] Care Team Providers Care Electrical Technician Name Role Phone Arnulfo Angeles Primary Care Provider [phone] Encounter Details Date Type Department Care Team (Late Contact Info) Description 10/07/[address] [facility] [address] [place] [address] Sherlyn Parson PA [address] [place] [address] Encounter for other general examination Social History [...] Description 04/18/2025 9:15 AM EST Office Visit [facility] Hematology Oncology [address] [place] [address] Castro Farias MD [address] [place] [address] documented as of this encounter [...] CBC auto differential (10/07/2024 5:13 AM EDT) [facility] WBC 5.2 4.8 - 10.8 K/mcL LAB HEMETOLOGY METHOD 10/07/2024 11:36 AM [facility] RBC 2.60(L) 4.50 - 5.50 M/mcL LAB HEMETOLOGY METHOD 10/07/2024 11:36 AM [facility] Hemoglobin 8.5(L) 13.5 - 17.5 g/dL LAB HEMETOLOGY METHOD 10/07/2024 11:36 AM [facility] Hematocrit 25.9(L) 42.0 - 54.0 % LAB HEMETOLOGY METHOD 10/07/2024 11:36 AM [facility] MCV 101.6(H) 79.0 - 98.0 FL LAB HEMETOLOGY METHOD 10/07/2024 11:36 AM [facility] MCH 33.3(H) 27.0 - 32.0 pcg LAB HEMETOLOGY METHOD 10/07/2024 11:36 AM [facility] MCHC 32.8 32.0 - 37.0 g/dL LAB HEMETOLOGY METHOD 10/07/2024 11:36 AM [facility] RDW 13.6 11.0 - 15.0 % LAB HEMETOLOGY METHOD 10/07/2024 11:36 AM [facility] Platelets 147 130 - 400 K/mcL LAB HEMETOLOGY METHOD 10/07/2024 11:36 AM [facility] MPV 11.6(H) 7.0 - 11.0 FL LAB HEMETOLOGY METHOD 10/07/2024 11:36 AM [facility] NRBC 0.0 <1.0 % LAB HEMETOLOGY METHOD 10/07/2024 11:36 AM [facility] NRBC Absolute 0.00 <0.10 K/mcL LAB HEMETOLOGY METHOD 10/07/2024 11:36 AM [facility] Neutrophils Relative 72.2 % LAB HEMETOLOGY METHOD 10/07/2024 11:36 AM [facility] Lymphocytes Relative 19.0 % LAB HEMETOLOGY METHOD 10/07/2024 11:36 AM [facility] Monocytes Relative 8.2 % LAB HEMETOLOGY METHOD 10/07/2024 11:36 AM [facility] Eosinophils Relative 0.0 % LAB HEMETOLOGY METHOD 10/07/2024 11:36 AM [facility] Basophils Relative 0.0 % LAB HEMETOLOGY METHOD 10/07/2024 11:36 AM [facility] Immature Granulocytes Relative 0.6 % LAB HEMETOLOGY METHOD 10/07/2024 11:36 AM [facility] Neutrophils Absolute 3.72 1.50 - 7.00 K/mcL LAB HEMETOLOGY METHOD 10/07/2024 11:36 AM [facility] Lymphocytes Absolute 0.98(L) 1.00 - 5.00 K/mcL LAB HEMETOLOGY METHOD 10/07/2024 11:36 AM [facility] Monocytes Absolute 0.42 0.20 - 1.00 K/mcL LAB HEMETOLOGY METHOD 10/07/2024 11:36 AM [facility] Eosinophils Absolute 0.00 0.00 - 0.50 K/[facility] LAB HEMETOLOGY METHOD 10/07/2024 11:36 AM EDT [facility] Basophils Absolute 0.00 0.00 - 0.20 K/[facility] LAB HEMETOLOGY METHOD 10/07/2024 11:36 AM EDT [facility] Immature Granulocytes Absolute 0.03 0.00 - 0.03 K/[facility] LAB HEMETOLOGY METHOD 10/07/2024 11:36 AM EDT [facility] Blood Venous blood specimen / Unknown Venipuncture / Unknown 10/07/2024 5:13 AM EDT 10/07/2024 9:59 AM EDT us Sherlyn MARQUEZ LAB BLOOD ORDERABLES Final Resul t [facility] [address] [place] [address], * (ABNORMAL) Comprehensive metabolic panel (10/07/2024 5:13 AM EDT) Sodium 138 133 - 145 mmol/L LAB CHEMISTRY METHOD 10/07/2024 12:00 PM [facility] Potassium 4.3 3.5 - 5.5 mmol/L LAB CHEMISTRY METHOD 10/07/2024 12:00 PM [facility] Chloride 108 96 - 110 mmol/L LAB CHEMISTRY METHOD 10/07/2024 12:00 PM [facility] CO2 21 21 - 32 mmol/L LAB CHEMISTRY METHOD 10/07/2024 12:00 PM [facility] Anion Gap 9 3 - 11 LAB CHEMISTRY METHOD 10/07/2024 12:00 PM [facility] Glucose 93 70 - 100 mg/dL LAB CHEMISTRY METHOD 10/07/2024 12:00 PM [facility] BUN 29(H) 5 - 25 mg/dL LAB CHEMISTRY METHOD 10/07/2024 12:00 PM [facility] Creatinine 1.38(H) 0.70 - 1.30 mg/dL LAB CHEMISTRY METHOD 10/07/2024 12:00 PM [facility] eGFR 52(L) >=60 mL/min/1. 73m2 LAB CHEMISTRY METHOD 10/07/2024 12:00 PM [facility] Comment:Calculation based on the Chronic Kidney Disease Epidemiology Collaboration (CKD-EPI) equation refit without adjustment for race. BUN/Creatinine Ratio 21.0 LAB CHEMISTRY METHOD 10/07/2024 12:00 PM [facility] Calcium 9.0 8.5 - 10.5 mg/dL LAB CHEMISTRY METHOD 10/07/2024 12:00 PM [facility] AST (SGOT) 44(H) 10 - 42 unit/L LAB CHEMISTRY METHOD 10/07/2024 12:00 PM [facility] ALT (SGPT) 42 10 - 60 unit/L LAB CHEMISTRY METHOD 10/07/2024 12:00 PM [facility] Alkaline Phosphatase 91 42 - 121 unit/L LAB CHEMISTRY METHOD 10/07/2024 12:00 PM [facility] Total Protein 6.4 6.0 - 8.0 g/dL LAB CHEMISTRY METHOD 10/07/2024 12:00 PM [facility] Albumin 2.6(L) 3.2 - 5.0 g/dL LAB CHEMISTRY METHOD 10/07/2024 12:00 PM [facility] Total Bilirubin 0.2 0.0 - 1.4 mg/dL LAB CHEMISTRY METHOD 10/07/2024 12:00 PM [facility] Blood Venous blood specimen / Unknown Venipuncture / Unknown 10/07/2024 5:13 AM EDT 10/07/2024 9:59 AM EDT Sherlyn MARQUEZ LAB BLOOD ORDERABLES Final Resul t Performing Organization Address [facility]/ZIP Co de Phone Number [facility] [address] [place] [address], [place] [phone] * (ABNORMAL) Magnesium (10/07/2024 5:13 AM EDT) Magnesium 1.8(L) 1.9 - 2.6 mg/dL LAB CHEMISTRY METHOD 10/07/2024 12:00 PM EDT [facility] Blood Venous blood specimen / Unknown Venipuncture / Unknown 10/07/2024 5:13 AM EDT 10/07/2024 9:59 AM EDT us Sherlyn MARQUEZ LAB BLOOD ORDERABLES Final Resul t Performing Organization Address [facility]/ZIP Co de Phone Number [facility] [address] [place] [address], [place] [phone] documented in this encounter Visit Diagnoses Diagnosis Encounter for other general examination documented in this encounter Care Teams Electrical Technician Relationship Specialty Start Date End Date Arnulfo Angeles PA [address] [place] [address] PCP - General Rod Filler 06/25/21 documented as of this encounter
--- OUTSIDE RECORDS SUMMARY | 2025-04-07 07:38 | XMS_ITS ---
Author Organization [facility] Prior to 09/07/24 Address [address] [place] [address] Care Team Providers Care Csr Name Role Phone Arnulfo Angeles PA-C Primary Care Provider Active Problems Problem Noted Date Diagnosed Date Primary adenocarcinoma of right lung 09/07/2021 Current Oncology Plans No current plan information found. Past Plans ONCOLOGY TREATMENT Plan Name Start Date Discontinue Date Treatment Medications Discontinue Reason Plan Provider Cycles [facility] OP ATEZOLIZUMAB 022 05/05/2022 albuterol (PROVENTIL)atezolizumab (TECENTRIQ) infusiondiphenhydrAMINE (BENADRYL)EPINEPHrinefa motidine (PF) (PEPCID)hydrocortisone (SOLU-CORTEF) IVmeperidine (DEMEROL) 25 MG/MLSaline Flush 0.9 %sodium chloride (NS) 0.9 %sodium chloride 0.9% bolus (NS) Therapy Complete Kedar Shoemaker MD 1 of 12 cycles started [facility] OP PEMETREXED+CA RBOPLATIN (AUC=6) 09/15/19 22 11/22/2021 [...] treatments are documented for this patient in [facility]. Treatments may have been administered in another system.
--- OUTSIDE RECORDS SUMMARY | 2025-04-07 07:38 | XMS_ITS | Clinical Summary ---
Author Organization [facility] Address [address] [place] [address] Phone Care Team Providers Care Litigation Support Analyst Name Role Phone Arnulfo Angeles Primary Care Provider [phone] Allergies No known active allergies Medications acetaminophen-cod [...] surveillance chest CT scan was performed at [facility] on September 10, 2024. There is a [...] or concerns prior to his next visit. Surgical History Surgery Date Site/Laterality Comments LUNG SURGERY PROCEDURE:LUNG SURGERY OTHER SURGICAL HISTORY 07/27/2021 PROCEDURE:RUL lobectomy Medical History Medical History Date Comments Lung cancer ([facility] V24, [facility] V28) DX:Lung cancer (HCC) Hypertension DX:Hypertension Heart attack ([facility] V24, [facility] V28) DX:Heart attack (HCC) Anemia DX:Anemia Kidney [...] 04/18/2025 9:15 AM EST Office Visit [facility] Hematology Oncology [address] [place] [address] Castro Farias MD [address] [place] [address] Health Maintenance Due Date Last [...] MARQUEZ LAB BLOOD ORDERABLES Final Resul t [facility] [address] [place] [address], from Last 3 Months or Most Recently Relevant to Health Maintenance Insurance [employer] Advance Directives Documents on File Type Date Recorded Patient Marking Devices Assembler Expl anation Health Care Decision (hx) 07/29/2021 [...] (hx) 07/29/2021 AD PATEL DIRECTIVE Care Teams Litigation Support Analyst Relationship Specialty Start Date End Date Arnulfo Angeles PA [address] [facility] [place] [address] PCP - General Cabinet Abrasive Sandblaster 06/25/21
--- OUTSIDE RECORDS SUMMARY | 2025-04-07 07:38 | XMS_ITS | Encounter Summary ---
Author Organization [facility] Address [address] [place] [address] Care Team Providers Care Master Steam Yacht Name Role Phone Franco Goel MD Primary Care Provider [phone] Encounter Details Date Type Department Care Team (Late st Contact Info) Description 03/03/2023 Scanned Document [facility] [address] [facility] [address] [place] [address] Radiation Therapy, Scan Social History Tobacco Use Types Packs/Day Years Used Date Smoking Tobacco: Unknown Alcohol Use Standard Drinks/Week Comments Not Currently 0 (1 standard drink = 0.6 oz pur e alcohol) [facility] Utilities Answer Date Recorded In [...] place to sleep or slept in a fpc (including now)? No 02/17/2023 Sex and Gender [...] on filedocumented in this encounter Care Teams Master Steam Yacht Relationship Specialty Start Date End Date Franco Goel MD [address] [place] [address] [place] [address] PCP - General 02/15/23 documented as of this encounter
[2025-04-07 08:31] VITALS: BP 124/74; PULSE 64; BMI 21.1
--- NOTE | 2025-04-07 08:31 | MHC.OFFVIS ---
Vital Signs 04/07/25 08:31 Height 5 ft 7 in Weight 134 lb 7.712 oz BMI 21.1 BP 124/74 Blood Pressure Location Lt brachial Position Sitting Pulse 64 Intake Visit Reasons: 1 yr fu Intake Note: 1 year follow-up with ekg feeling good Negative Checker Required: No Allergies No Known Allergies (No Known Allergies*) Allergy (Verified 02/05/25 12:48) Medication List - Last Reconciled 04/07/25 by Yayo Smith MD albuterol sulfate 90 mcg/actuation 2 puffs inhalation Q4-6H PRN allopurinol 100 mg PO DAILY 90 days amlodipine 10 mg PO BEDTIME ascorbate calcium (vitamin C) 500 mg PO DAILY atorvastatin 80 mg PO BEDTIME 90 days calcium lactate 100 mg PO TID cholecalciferol (vitamin D3) 25 mcg PO DAILY clobetasol 0.05% 1 appl topical BID PRN 90 days ferrous sulfate 324 mg PO DAILY fluticasone furoate-vilanterol 100-25 mcg/dose (Breo Ellipta) 1 inh inhalation DAILY folic acid 1 mg PO DAILY lisinopril 2.5 mg PO DAILY loratadine (Allergy Relief (loratadine)) 10 mg PO DAILY metoprolol succinate ER 50 mg PO BID mirtazapine 15 mg PO BEDTIME multivitamin 1 tab PO DAILY pyridoxine (vitamin B6) 100 mg PO DAILY 90 days tamsulosin (Flomax) 0.4 mg PO BEDTIME 90 days HPI Comments Details: Bienvenido comes for follow-up. He said in his last year he has fallen about 10 times. There has been concern. He has lost weight and muscle mass. Patient said he had lost some appetite but now is eating better and has gained some weight. There has been concern overall from that perspective. He denies any cardiac symptoms. Recently underwent myocardial perfusion imaging due to remote coronary artery bypass grafting which shows normal perfusion suggestive of patent grafts. His echocardiogram shows normal LV ejection fraction with mild calcific changes. He is taking his medications appropriately. His LDL is well optimized at 62 mg/dL. [facility] Medical History HTN (hypertension) COVID-19 virus infection NSVT (nonsustained ventricular tachycardia) CHF (congestive heart failure) Cigarette smoker Pneumothorax after biopsy (~2021) COPD (chronic obstructive pulmonary disease) Anemia Carotid artery occlusion Coronary artery disease Kidney stone High cholesterol Surgical History History of bronchoscopy (~2021) History of chest tube placement (~2021) History of esophagogastroduodenoscopy (EGD) (~2020) History of lung biopsy (~2021) History of colonoscopy (~02/08/21) History of cystoscopy (~2020) History of CEA (carotid endarterectomy) (~2018) History of lithotripsy (~2002) Hx of CABG (~2018) Family History (Updated 10/16/24 @ 13:27 by Arin Zarate MA) Father Bone cancer Mother No problems noted. Father No problems noted. Other No family history of coronary artery disease Social History Household Members: None Housing: House Do you presently have visiting nurse or other home services: Yes (previously had home services) Alcohol intake: former Comment: patient refused alarm Patient Tobacco Use Status: Current everyday Tobacco user Tobacco use type: Cigarette Cigarette Packs Per Day: 0.5 Cigarettes Per Day: 6 Years Smoked: 60 e-Cigarette/Vaping Use: Currently Using Second Hand Smoke Exposure: No Advance Directives Date on File: 10/12/21 service: Yes Current occupational status: retired Cognitive needs: No Hearing needs: No Vision needs: Yes (teading glasses) Review of Systems Const Denies chills, Denies fatigue, Denies fever(s), Denies frequent falls, Denies weakness, Denies weight gain and Denies weight loss ENT Denies dizziness Card Denies chest pain, Denies leg edema, Denies lightheadedness, Denies palpitations, Denies dyspnea, Denies dyspnea on exertion, Denies orthopnea and Denies other (loss of consciousness) Resp Denies cough, Denies dyspnea and Denies dyspnea on exertion GI Denies hematochezia and Denies change in stool character Musc Denies abnormal gait, Denies muscle weakness, Denies numbness, Denies radiating pain into limb and Denies tingling Neuro Denies abnormal gait, Denies dizziness, Denies frequent falls, Denies numbness, Denies tingling and Denies weakness Endo Denies fatigue and Denies palpitations Physical Exam Vital Signs: Last Vital Signs Pulse 64 04/07/25 08:31 BP 124/74 04/07/25 08:31 BMI result Body Mass Index 21.1 Const General: cooperative, comfortable, no acute distress, alert and awake Nutritional Appearance: underweight and other (Frail elderly man) Orientation/consciousness: patient oriented x3 Neck Neck: Yes trachea midline, Yes supple and Yes no JVD Resp Effort & Inspection: normal respiratory effort Auscultation: clear to auscultation bilaterally Cardio Jugular venous distension: no JVD Palpation: normal PMI Rate: regular rate Rhythm: regular rhythm Heart sounds: S1 normal heart sound present, S2 normal heart sound present, no click, no gallops, no murmurs and no rubs Peripheral pulses: other (Reduced bilateral distal pulses) GI Auscultation: normal bowel sounds Skin General skin exam: ecchymosis Rashes: rashes noted ( Diffuse) Neuro General: patient oriented x3 and no focal motor deficits Extrem General: Yes no clubbing, cyanosis or edema Psych Appearance: grossly normal Office Procedures EKG Details: EKGs shows normal sinus rhythm with right bundle-branch block 30245-[id number], Complete Assessment & Plan Assessment & Plan (1) Coronary artery disease: Comment: (S/p CABG x 5 in 2019. Denies recent chest pain) Code(s): I25.10 - Atherosclerotic heart disease of [place] coronary artery without angina pectoris Category: Medical Plan: CAD with remote coronary artery bypass grafting in this elderly gentleman with recent myocardial perfusion imaging after greater than 5 years within normal limits. This carries good prognosis. Discussed with him. This usually suggest patency of the graft. Continued medical therapy as planned. Continue lifelong aspirin therapy. Continue high-intensity statin therapy with well optimized LDL. Aggressive control blood pressure, see below. Smoking cessation was advised. I am concerned about his frequent falls and frailty. Have taken the liberty to refer him to physical therapy for fall prevention techniques and education. (2) HTN (hypertension): Code(s): I10 - Essential (primary) hypertension Category: Medical Plan: Hypertension which is currently well optimized advised to monitor blood pressure at home maintain a log. Goal blood pressure less than 130/84. Low-salt diet was recommended. Encouraged to maintain activity level as tolerated. Advised to monitor blood pressure at home maintain a log. (3) Right bundle branch block (RBBB) determined by electrocardiography: Code(s): I45.10 - Unspecified right bundle-branch block Plan: Right bundle-branch block on EKGs stable. Requires annual EKGs. No other interventions required. Will follow up in the clinic in 1 year's time, sooner PRN. Thank you for allowing me to partake in his care Orders: Orders PT Evaluation and Treatment Today R29.6 - Repeated falls Coding Level of Care Code Est Pt Level 4 (44082) Diagnoses Coronary artery disease I25.10 HTN (hypertension) I10 Right bundle branch block (RBBB) determined by electrocardiography I45.10 CPT Codes EKG - CPT: 93899-[id number], Complete ([id number])
== END 2025-04-07 08:47 | disposition home or self-care (01) ==
PROVIDERS: PCP Physician Assistant; Referring Provider Internal Medicine Cardiovascular Disease; Visit Provider Internal Medicine Cardiovascular Disease
DX: I25.10 Atherosclerotic heart disease of native coronary artery without angina pectoris (principal); I10 Essential (primary) hypertension; I45.10 Unspecified right bundle-branch block
CPT/HCPCS: 93010; 99214

== ENCOUNTER → 2025-04-07 07:34 | Outpatient (BNVA) | payer OTHER, SELFPAY | PROVIDERS: PCP Internal Medicine; Visit Provider Internal Medicine Cardiovascular Disease | DX: I25.10 Atherosclerotic heart disease of native coronary artery without angina pectoris (principal); I10 Essential (primary) hypertension; I45.10 Unspecified right bundle-branch block; R29.6 Repeated falls; F17.210 Nicotine dependence, cigarettes, uncomplicated; Z79.82 Long term (current) use of aspirin; Z95.1 Presence of aortocoronary bypass graft; Z79.899 Other long term (current) drug therapy; Z71.6 Tobacco abuse counseling | CPT/HCPCS: 93005; 99212 ==